=== PATIENT | female | born 1990 | race Caucasian/White ===

== ENCOUNTER 2017-07-23 19:23 | Emergency (ER) | payer OTHER, SELFPAY ==
[2017-07-23 19:25] VITALS: BP 149/99; PULSE 106; RESP 18; TEMP 37; O2SAT 100; BMI 41.5
[2017-07-23 21:38] VITALS: BP 160/100; PULSE 90; RESP 18; O2SAT 100
--- NOTE | 2017-07-23 21:42 | CT_ITS ---
STUDY: CT BRAIN WITHOUT CONTRAST REASON FOR EXAM: Female, 26 years old. Weakness dizziness and facial numbness RADIATION DOSAGE (If Supplied By Facility): CTDIvol = ( 44.99 ) mGy, DLP = ( 762.36 ) mGycm TECHNIQUE: Transaxial CT imaging of the brain was performed without administration of intravenous contrast material. Individualized dose optimization techniques were used for this CT. COMPARISON: September 30, 2014 FINDINGS: Normal soft tissue structures. Normal calvarium. Mild ventricular asymmetry likely normal developmental variant.. Normal white matter tracts of the cerebral hemispheres. Normal basal ganglia and thalami. Normal brainstem. Normal cerebellum. There is no intracranial hemorrhage. There are no findings of an acute ischemic infarction. Normal visualized paranasal sinuses. No significant change since prior study CT/Brain/Head without Contrast IMPRESSION: Normal unenhanced CT scan of the brain. However, if concern for acute infarct MRI recommended. Electronically Signed: Uri Randhawa MD at 22:41 EST , Service support ,
--- NOTE | 2017-07-23 22:44 | ED.DCSUM_ITS ---
- ER Visit Summary Date of Service: 07/23/17 Chief Complaint: Facial numbness History of Present Illness: The patient is a 26 F presenting for evaluation secondary to facial numbness. 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 She denies any weakness visual changes or any numbness or weakness in her arms or legs. She denies any speech difficulty. She has never had any prior similar symptoms in the past. Patient states that she has a history of a low blood pressure that she does not take medications for, she is a non-smoker, but she does have history of chronic headaches they got worked up about 5 years ago with imaging but nothing recently. She denies any recent head injuries. She denies any recent infections fever cough nausea vomiting neck stiffness or skin rashes. Review of systems otherwise negative. Physical Examination: Vital signs are within normal limits, patient is afebrile. General: Patient is well-nourished well-developed and in no acute distress. Head: Normocephalic, atraumatic Eyes: Pupils equal round and reactive bilaterally, extra occular motion intact bialterally ENT: Moist mucous membranes no evidence of vesicular rash on face Neck: Supple, no lymphadenopathy, no JVD, no meningismus CVS: Heart regular rate and rhythm, no murmurs, rubs or gallops, radial pulses 2 + bilaterally Resp: Respirations nondistressed, lung sounds clear bilaterally Abdomen: Soft, nontender, nondistended, no palpable masses, normal bowel sounds Back: Nontender Extremities: Nontender, atraumatic, active full range of motion, no peripheral edema Skin: warm, no rashes, no petechia Neuro: Alert and oriented x 4, CN 2-12 intact, no lateralizing neurological defecits, patient complains of bilateral facial numbness without any evidence of weakness of the facial muscles. Psyc: Normal affect Test Results: CT brain found to be negative. Emergency Department Course and Treatment: Patient presented for evaluation secondary to facial tingling of 2 hours duration. Physical exam was benign except for the patient's subjective feeling of tingling of her face, there is no evidence of vesicular rash on the face, Saravia's palsy, or any other neurologic deficit. CT brain was found to be negative. Patient is 26 years old does not smoke has no risk factors for cerebrovascular disease at this point. I do not believe that she requires admission given her otherwise normal appearance and normal workup. Patient will be given referral to neurology. All questions answered patient was discharged. Disposition: Discharge Impression: 1. Facial paresthesia This note was generated with [employer] dictation software. It may contain incorrect words, spelling, and punctuation that were not noted in review of the chart prior to signing ED Disposition - Plan for ED Patient: Chief Complaint: Numb/Ting Instructions: ED Paraesthesias Referrals: May Alicia DO [Primary Care Provider] - Neto Barth MD [STAFF PHYSICIAN] - 1 Week
[2017-07-23 23:00] VITALS: BP 129/81; PULSE 91; RESP 16; O2SAT 98
[2017-07-23 23:26] VITALS: BP 137/84; PULSE 96; RESP 18; O2SAT 97
== END 2017-07-23 23:28 | disposition home or self-care (01) ==
LOC: ED 21:46
PROVIDERS: Emergency Provider Emergency Medicine; Family Provider Internal Medicine; PCP Internal Medicine
DX: R20.2 Paresthesia of skin (principal); R51 Headache; E66.9 Obesity, unspecified
CPT/HCPCS: 70450; 99282

== ENCOUNTER → 2017-08-01 08:47 | Outpatient (CLI) | payer OTHER, SELFPAY ==
--- NOTE | 2017-08-01 08:51 | RAD_ITS ---
STUDY: X-RAY - CERVICAL SPINE REASON FOR EXAM: Female, 26 years old. Bilateral arm tingling and numbness TECHNIQUE: 3 view(s) of the cervical spine were obtained. COMPARISON: None FINDINGS: Normal anterior atlantoaxial articulation. Normal odontoid process. There is straightening of the normal cervical lordosis. Normal vertebral bodies and endplates. Normal disc space heights. The soft tissue structures are unremarkable. There is no demonstrated fracture of the cervical spine. RAD/Cerv Spine 2 or 3 Views IMPRESSION: Normal x-ray examination of the visualized cervical spine. Electronically Signed: Dre Humphries MD at 17:19 EST , Service support ,
== END ==
PROVIDERS: Family Provider Internal Medicine; PCP Internal Medicine; Visit Provider Internal Medicine
DX: M54.12 Radiculopathy, cervical region (principal)
CPT/HCPCS: 72040

== ENCOUNTER → 2017-08-10 07:17 | Outpatient (CLI) | payer OTHER, SELFPAY ==
--- NOTE | 2017-08-10 07:31 | MRI_ITS ---
STUDY: MRI CERVICAL SPINE WITHOUT CONTRAST REASON FOR EXAM: Female, 26 years old. Chronic daily headaches radiating to the neck and numbness and tingling in both extremities for 6 years TECHNIQUE: Standardized fat and water weighted pulse sequences were obtained in the sagittal and axial planes. COMPARISON: None FINDINGS: Straightening of normal cervical lordosis. Craniocervical junction appears unremarkable. No definite evidence for cord edema or myelomalacia seen. Minimal anterior wedging of the C3 and C4 and small C5 vertebral bodies which appear chronic. C6 vertebral body hemangioma. Disc desiccation at C2-C3, C3-C4, C4-C5 and C5-C6 levels. Minimal anterior osteophytic spurring. Level by level analysis: C2-C3 level: Facet hypertrophy without significant central canal stenosis or neural foraminal narrowing. C3-C4 level: Mild facet hypertrophy with broad-based disc bulge without significant central canal stenosis or neural foraminal narrowing. Mild effacement of ventral thecal sac. C4-C5 level: Bilateral facet hypertrophy with broad-based disc bulge resulting in mild effacement of ventral thecal sac without significant central canal stenosis or neural foraminal narrowing. C5-C6 level: Bilateral facet hypertrophy and broad-based disc bulge with mild effacement of ventral thecal sac without significant central canal stenosis or neural foraminal narrowing C6-C7 level: Broad-based disc bulge with a superimposed left paracentral small disc protrusion resulting in mild deformity of the left ventrolateral surface of the spinal cord without significant central canal stenosis or neural frontal narrowing C7-T1 level: Neural foramina and central canal are essentially patent No paraspinal soft tissue mass. Vertebral artery flow voids are grossly patent although there is tortuosity which limits assessment. Mucosal thickening of the paranasal sinuses. IMPRESSION: Mild cervical spondylotic changes predominating at C5-C6 and C6-C7 levels. No evidence for acute cervical spine fractures. No significant central canal stenosis. Please see above level by level complete analysis and details. No definite evidence for white matter lesions involving the cervical cord noted Electronically Signed: Blaine Ross, at 10:29 EST Tel , Service support , MRI/Spine Cervical (Routine)
--- NOTE | 2017-08-10 07:32 | MRI_ITS ---
STUDY: MRI BRAIN WITHOUT CONTRAST REASON FOR EXAM: Female, 26 years old. Chronic daily headaches radiating to the neck with numbness and tingling in the upper extremities TECHNIQUE: Standardized multiplanar fat and water weighted pulse sequences were obtained. COMPARISON: July 23, 2017 CT examination of the head FINDINGS: Normal size of the ventricles and extra-axial spaces for the patient's age. A few scattered foci of T2/FLAIR hyperintensity in the periventricular white matter noted which are nonspecific in imaging appearance however differential considerations include migraine-related changes. Normal bilateral basal ganglia. Normal thalami. There is no extra-axial fluid accumulation. Normal flow voids within the major intracranial circulation suggesting patency by spin echo criteria. Normal sella turcica, pituitary gland, infundibular stalk, optic chiasm and hypothalamus. Normal tectal plate and pineal gland. Normal midbrain, brittany and medulla. Normal cerebellum. Normal basal cisterns. Normal bilateral temporal bones. Normal bilateral internal auditory canals. No demonstrated orbital abnormality, within the constraints of a routine brain study. Mucous retention cysts in the maxillary sinuses. Normal calvarium and skull base. Normal visualized soft tissue structures. Normal visualized upper cervical spine. MRI/Brain without Contrast IMPRESSION: No evidence for acute or subacute ischemic insult. No evidence for intracranial mass or acute hemorrhage. A few scattered foci of T2/FLAIR hyperintensity in the periventricular white matter noted which are nonspecific in imaging appearance however differential considerations include migraine-related changes. Electronically Signed: Blaine Ross, at 9:46 EST Tel , Service support ,
== END ==
PROVIDERS: Family Provider Internal Medicine; PCP Internal Medicine; Visit Provider Internal Medicine
DX: R51 Headache (principal); M54.12 Radiculopathy, cervical region
CPT/HCPCS: 70551; 72141

== ENCOUNTER 2017-09-30 09:00 | Outpatient (RCR) | payer OTHER, SELFPAY ==
--- NOTE | 2017-08-23 12:50 | HP.PTEVAL_ITS ---
Patient's Visit Information WADE ESPARZA is a 26 year old F referred to Physical Therapy by May SERNA with a diagnosis of cervical radiculopathy. Date of Evaluation: 08/23/17 Physical Therapist: Jameel Dawson DPT, OC - Visit Plan Frequency: 2x /Week Duration: 4-6 Weeks Plan: 2x/week for 4-6 for c/s ret adn ext ROM(monitor L rot and ext ROM adn pain ) and progression of forces, mobs as needed. Postural and cervical strength. May use ES and MH adn ST<M as needed for acute pain. - Subjective Subjective: Severe neck pain. Not sure why. has NAVA for 6 years. Neck pain long time also and worsening. Neck hurts in back both sides and down between shoulder blades. Sometimes down into B UE. Also gets some numbness and tingling all the way down but this intermittent. I don't know why I am jsut sitting here. Sleep is interrupted due to pain waking up. 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 Pain is no different after work. Days off are no better. Hobbies include hanging out with family driving in car. Basic ADLs are OK, pain sometimes worsens. L rotation especially. - Pain Neck pain Pain Intensity (Out of 10): 7 Pain Intensity Range: 2, 9 Comment: working. - Objective At rest: L neck 9/10, 7 in UE to wrist. c/s AROM 40 ext , 50 R rotation both with pain, 80 L rotation. reflexes 2/3 bi and tri. Full UE AROM but pain end range L elevation. Sensation is WNL to gross light touch but feels numb left arm. Strength is 4-/5 through UE with out myotomal problems. repeated protrusion: NE, NE to movement.. repeated retraction: B. retraction ext...Better motion 80 ext adn 80 L rotation. - Goals Goal 1:: Full aROM c/s rotation and extension without pain Goal Time Frame: 4-6 Weeks Goal 2:: Pain and NAVA 75% improved and 2/10 at worst/ no UE symptoms. Goal Time Frame: 4-6 Weeks Goal 3:: I approp HEP to limit future problems Goal Time Frame: 4-6 Weeks Goal 4:: Sleep without waking due to pain. Goal Time Frame: 4-6 Weeks - Rehabilitation Potential Physical Therapy Diagnosis: cervical disc derangement. Rehabilitation Potential: Fair - Anticipated Interventions Patient/Client Instruction: Educate patient on: Condition, Plan of Care For the Purpose of:: To decrease pain, To increase ROM Therapeutic Exercise to Include: Strength training, Postural training, Flexibilty training, Passive ROM, Active ROM, Jus Exercises For the Purpose of:: To decrease pain, To increase ROM, To increase tolerance to activity/condition/position, To improve ability of physical actions for home/ community/work/leisure Manual Therapy Techniques to Include: Mobilization, Soft tissue mobilization For the Purpose of:: To increase ROM TENS: Yes Thermo therapy (hot pack): Yes For the Purpose of:: To decrease pain Thank you for the opportunity to evaluate your patient. For Medicare and Medicare HMO plans, please review the plan of care and approve it. It will need to be FAXED BACK to us at [phone] for Medicare purposes. Please let me know if there are questions or concerns regarding this plan of care. Physician Signature: Date:
--- NOTE | 2017-09-30 09:25 | HP.PTDCSUM_ITS ---
HP - PT D/C Summary It has been my pleasure to treat WADE ESPARZA under orders from May Alicia, for the diagnosis of cervical radiculopathy for a total of 8 visit(s). Discharge Date: 09/30/17 Please see the following information for a summary of their discharge status. - Subjective Subjective: Could nt take topamax as her blood pressure. Given imitec but only taken once last and it knocked NAVA out for a little while but it came back worse. Was 6/10 or higher most of weekend. Neck pain is allright. Motion feels worse. Not doing ex as much as should be. 90% better neck and arm , 50% overall as NAVA continues. Not sure when f/u is with neuro, awaiting to see imitek. - Pain Neck pain Pain Intensity (Out of 10): 0 L UE Pain Intensity (Out of 10): 0 NAVA Pain Intensity (Out of 10): 6 - Objective Objective/Function: Motion is full and painfree in neck. Strength in UE 4/5 without pain. Pt has no problems with neck pain but NAVA are a constant problem. I have asked her to contact docs office regarding her confusionh with meds. She says that botox may be an option and I have encourage her to seek the next options as therapy is nto helping the NAVA. Dry needling could be an option if other interventions fail and should be considered. - Goals Goal 1:: Full aROM c/s rotation and extension without pain Goal Progress: Goal Met Goal 2:: Pain and NAVA 75% improved and 2/10 at worst/ no UE symptoms. Goal Progress: neck, not NAVA. Goal 3:: I approp HEP to limit future problems Goal Progress: Goal Met Goal 4:: Sleep without waking due to pain. Goal Progress: Progressing - Plan Plan: D/C - D/C Information Discharge Comments: Pt doing well with necka dn arm pain and neck ROM. NAVA persists and is working with neurologist. If there are questions or concerns regarding this patient's physical therapy, please feel free to call me at [phone]. Thank you for the referral of this patient. Sincerely, Jameel Dawson, DPT, OC
== END 2017-09-30 19:00 | disposition home or self-care (01) ==
LOC: PT 09:00
PROVIDERS: Family Provider Internal Medicine; PCP Internal Medicine; Visit Provider Internal Medicine
DX: M54.12 Radiculopathy, cervical region (principal); M50.20 Other cervical disc displacement, unspecified cervical region
CPT/HCPCS: 97110; 97140; 97162; 97530

== ENCOUNTER → 2018-03-24 09:38 | Outpatient (CLI) | payer OTHER, SELFPAY ==
[2018-03-24 11:17] LABS: Hemoglobin A1c 4.9 % (4.2-6.3)
[2018-03-24 11:18] LABS: Progesterone Level 0.78 ng/mL (See Comment)
[2018-03-24 11:22] LABS: hCG Titer Quant., Serum < 1 mIU/mL (<9 non-preg)
[2018-03-24 11:28] LABS: Estradiol 47.2 pg/mL; Free T3 3.1 pg/mL (2.18-3.98); Thyroid Stim Hormone (TSH) 2.05 uIU/mL (0.358-3.74)
[2018-03-29 13:19] LABS: HPV HC, High Risk Negative (Negative); HPV Reflexed? YES, CHARGE PATIENT
== END ==
PROVIDERS: Visit Provider Obstetrics & Gynecology
DX: Z12.4 Encounter for screening for malignant neoplasm of cervix (principal); N92.6 Irregular menstruation, unspecified
CPT/HCPCS: 36415; 82670; 83036; 84144; 84403; 84439; 84443; 84481; 84702; 87624; 88175; G0145

== ENCOUNTER → 2018-04-03 13:09 | Outpatient (CLI) | payer OTHER, SELFPAY ==
[2018-04-03 16:06] LABS: hCG Titer Quant., Serum < 1 mIU/mL (<9 non-preg)
== END ==
PROVIDERS: Visit Provider Obstetrics & Gynecology
DX: N91.2 Amenorrhea, unspecified (principal)
CPT/HCPCS: 36415; 84702

== ENCOUNTER → 2018-04-23 12:20 | Outpatient (CLI) | payer OTHER, SELFPAY ==
--- NOTE | 2018-04-23 12:40 | US_ITS ---
STUDY: ULTRASOUND OF THE FEMALE PELVIS - COMPLETE REASON FOR EXAM: Female, 27 years old. Irregular menses. LMP: April 18, 2018. TECHNIQUE: Transvaginal TECHNICAL QUALITY: Adequate. COMPARISON: Comparison is made with prior examination dated July 08, 2014. FINDINGS: The uterus is anteverted and is in a midline position. The uterus measures 7.8 cm x 4.6 cm x 3.5 cm. Normal uterine cervix. The endometrium measures 3.2 mm in thickness, and is hyperechoic. There is no demonstrated endometrial mass. There is a 1.2 cm x 1 cm x 0.9 cm fibroid in the anterior aspect of the fundal portion of the uterus. I.U.D. - The patient does not have an I.U.D. The right ovary is visualized. The right ovary measures 2.4 cm x 2.2 cm x 2.6 cm. There is no right ovarian cyst or ovarian mass. There is no visualized right adnexal mass or complex lesion. There is normal arterial and normal venous vascularity. The left ovary is visualized. The left ovary measures 2.9 cm x 3.0 cm x 1.9 cm. There is no left ovarian cyst or ovarian mass. There is no visualized left adnexal mass or complex lesion. There is normal arterial and normal venous vascularity. There is no fluid in the cul-de-sac. The pre void volume of the bladder was 991 ml. Polycystic ovary disease: No. US/Pelvic (Non ) IMPRESSION: Small fundal fibroid. Electronically Signed: Niraj Liriano MD at 14:04 EST Tel [phone], Service support ,
--- NOTE | 2018-04-23 12:40 | US_ITS ---
STUDY: ULTRASOUND OF THE FEMALE PELVIS - COMPLETE REASON FOR EXAM: Female, 27 years old. Irregular menses. LMP: April 18, 2018. TECHNIQUE: Transvaginal TECHNICAL QUALITY: Adequate. COMPARISON: Comparison is made with prior examination dated July 08, 2014. FINDINGS: The uterus is anteverted and is in a midline position. The uterus measures 7.8 cm x 4.6 cm x 3.5 cm. Normal uterine cervix. The endometrium measures 3.2 mm in thickness, and is hyperechoic. There is no demonstrated endometrial mass. There is a 1.2 cm x 1 cm x 0.9 cm fibroid in the anterior aspect of the fundal portion of the uterus. I.U.D. - The patient does not have an I.U.D. The right ovary is visualized. The right ovary measures 2.4 cm x 2.2 cm x 2.6 cm. There is no right ovarian cyst or ovarian mass. There is no visualized right adnexal mass or complex lesion. There is normal arterial and normal venous vascularity. The left ovary is visualized. The left ovary measures 2.9 cm x 3.0 cm x 1.9 cm. There is no left ovarian cyst or ovarian mass. There is no visualized left adnexal mass or complex lesion. There is normal arterial and normal venous vascularity. There is no fluid in the cul-de-sac. The pre void volume of the bladder was 991 ml. Polycystic ovary disease: No. US/Transvaginal Non- IMPRESSION: Small fundal fibroid. Electronically Signed: Niraj Liriano MD at 14:04 EST Tel [phone], Service support ,
== END ==
PROVIDERS: Family Provider Internal Medicine; PCP Internal Medicine; Referring Provider Obstetrics & Gynecology; Visit Provider Obstetrics & Gynecology
DX: N92.6 Irregular menstruation, unspecified (principal); R51 Headache
CPT/HCPCS: 36415; 76830; 76856; 84146; 93976

== ENCOUNTER 2018-04-30 22:45 | Emergency (ER) | payer OTHER, SELFPAY ==
[2018-04-30 22:47] VITALS: BP 164/98; PULSE 99; RESP 16; TEMP 37.1; O2SAT 96; BMI 43.0
--- NOTE | 2018-04-30 22:57 | ED.VISSUMM ---
- ER Visit Summary Date of Service: 04/30/18 Chief Complaint: [] Fingertip shock History of Present Illness: The patient is a 27 F patient was plugging in an iPod and received a shock from electrical outlet here at [facility]. She works here felt a shock on her fingertip. She stated it ran up her arm across her chest and felt a zinger her opposite arm as well. It lasted just for a second. Eyes any symptoms. Physical Examination: [] Vital signs reviewed General: Well-nourished well-developed Head: Normocephalic atraumatic Eyes: Pupils equal round and reactive to light extraocular movements intact ENT: TMs clear no hemotympanum no trauma Neck: Nontender full range of motion Cardiovascular: Regular rate rhythm no murmurs normal S1-S2 Respiratory: No distress clear to auscultation bilaterally chest nontender Abdomen: Soft nontender nondistended normal bowel sounds no masses Back: Nontender no CVA tenderness Extremities: Nontender active range of motion ?4 extremities no trauma. Fingertip exam normal Skin: Normal color no trauma Neuro alert oriented cranial nerves II through XII intact normal strength sensation reflexes Test Results: [] Emergency Department Course and Treatment: [] Patient placed on the monitor. She is in normal sinus rhythm at a rate of 90s. At this time she can be discharged. This is a very low voltage shock which should not cause any problems. I do not feel she needs lab work imaging or has any heart problems from it. Treatment Plan: [] Disposition: [] Impression: [] Outlet shock to finger This note was generated with [employer] dictation software. It may contain incorrect words, spelling, and punctuation that were not noted in review of the chart prior to signing ED Disposition - Plan for ED Patient: Chief Complaint: Other, Pain/Inj Referrals: May Alicia DO [Primary Care Provider] -
--- NOTE | 2018-04-30 22:59 | ED.DEP ---
ED Disposition - Plan for ED Patient: Disposition: Home or Assisted Living Chief Complaint: Other, Pain/Inj Instructions: First Aid: Electrical Shocks Referrals: Corporate,[facility] [GROUP OF PHYSICIANS] -
--- NOTE | 2018-04-30 23:00 | DCINST.ED_ITS ---
ED Disposition - Plan for ED Patient: Disposition: Home or Assisted Living Chief Complaint: Other, Pain/Inj Instructions: First Aid: Electrical Shocks Referrals: Corporate,[facility] [GROUP OF PHYSICIANS] -
--- OUTSIDE RECORDS SUMMARY | 2018-06-26 05:22 | XMS RPT_ITS ---
:1990 Author Organization OHIP Support Name Relationship Address Phone VILMA, MICHELLE/CHAVA Unavailable [address] [place] [address] + [place] [address] AL, LONI Unavailable [address] + [address] [place] [address] [facility] Unavailable [address] + [place] [address] VILMA, MICHELLE/CHAVA Unavailable [address] [place] [address] + [place] [address] AL, LONI Unavailable [address] + [address] [place] [address] [facility] Unavailable [address] + [place] [address] VILMA, MICHELLE/CHAVA Unavailable [address] [place] [address] + [place] [address] AL, LONI Unavailable [address] + [address] [place] [address] [facility] Unavailable [address] + [place] [address] VILMA, MICHELLE/CHAVA Unavailable [address] + [place] [address] AL, LONI Unavailable [address] + [address] [place] [address] [facility] Unavailable [address] + [place] [address] VILMA, MICHELLE/CHAVA Unavailable [address] [place] [address] + [place] [address] AL, LONI Unavailable [address] + [address] [place] [address] [facility] Unavailable [address] + [place] [address] VILMA, MICHELLE/CHAVA Unavailable [address] [place] [address] + [place] [address] AL, LONI Unavailable [address] + [address] [place] [address] [facility] Unavailable [address] + [place] [address] VILMA, MICHELLE/CHAVA Unavailable [address] [place] [address] + [place] [address] AL, LONI Unavailable [address] + [address] [place] [address] [facility] Unavailable [address] + [place] [address] VILMA, MICHELLE/CHAVA Unavailable [address] [place] [address] + [place] [address] AL, LONI Unavailable [address] + [address] [place] [address] [facility] Unavailable [address] + [place] [address] VILMA, MICHELLE/CHAVA Unavailable [address] [place] [address] [phone] [place] [address] AL, LONI Unavailable [address] + [address] [place] [address] [facility] Unavailable [address] + [place] [address] VILMA, MICHELLE/CHAVA Unavailable [address] [place] [address] [phone] [place] [address] AL, LONI Unavailable [address] + [address] [place] [address] [facility] Unavailable [address] + [place] [address] VILMA, MICHELLE/CHAVA Unavailable [address] [place] [address] [phone] [place] [address] AL, LONI Unavailable [address] + [address] [place] [address] [facility] Unavailable [address] + [place] [address] MICHELLE ESPARZA/CHAVA Unavailable [address] [phone] [place] [address] LONI MELENDEZ Unavailable [address] + [address] [place] [address] [facility] Unavailable [address] + [place] [address] Care Team Providers Name Role Phone Sukhwinder Singh Attending Unavailable Ravin, May Referring Unavailable Sukhwinder Singh Attending Unavailable Ravin, May Referring Unavailable Ravin, May Primary Care Unavailable Azeem Guillen Attending Unavailable Ravin, May Attending Unavailable Ravin, May Primary Care Unavailable Ravin, May Attending Unavailable Ravin, May Referring Unavailable Ravin, May Primary Care Unavailable Ravin, May Attending Unavailable Ravin, May Referring Unavailable Ravin, May Primary Care Unavailable ASSESSMENT, HEALTH RISK Attending Unavailable ASSESSMENT, HEALTH RISK Referring Unavailable Ravin, May Primary Care Unavailable Natalie Bacon Attending Unavailable Shriner, Natalie Attending Unavailable Shriner, Natalie Attending Unavailable Shriner, Natalie Referring Unavailable Ravin, May Primary Care Unavailable Ravin, May Primary Care Unavailable Elton Donaldson Attending Unavailable Jaimie Vela Attending Unavailable Ravin, May Referring Unavailable PROBLEMS PROBLEMS DATE TYPE CONDITION / CODE ATTENDING STATUS SOURCE 05/20/2018 Unknown T75.4XXA - Sukhwinder Singh Active [place] Electrocution, Community initial encounter Hospital / Repository T75.4XXA(ICD-10) 03/24/2018 Unknown Z12.4 - Encounter Natalie Bacon Active [place] for screening for Community malignant Hospital neoplasm of Repository cervix / Z12.4(ICD-10) 03/24/2018 Unknown N92.6 - Irregular Natalie Bacon Active [place] menstruation, Community unspecified / Hospital N92.6(ICD-10) Repository 08/10/2017 Unknown R51 - Headache / [place], Active [place] R51(ICD-10) [facility] Repository 08/10/2017 Unknown M54.12 - Ravin, Active [place] Radiculopathy, May [facility] region / Hospital M54.12(ICD-10) Repository PROCEDURES PROCEDURES No Procedure Records FoundRESULTS RESULTS URGENT CARE VISIT Observed: 05/16/2018 Status: F Source: [place] REPORT 1:37 PM [facility] REPOSITORY [facility] [address] [place] [address] OFFICE VISIT Date of Service: 05/16/18 MR#: [id number] Acct: [id number] Name: WADE ESPARZA Rep #: [id number] : 1990 Provider: Sukhwinder WOODSON Age/Sex: 27/F Location: [facility] Status: Signed Intake Vital Signs05/16/18 Body Mass Index (BMI) 43.0 05/16/18 Height 5 ft 7 in Intake Visit Reasons: ELECTRICUTION/[facility] Chief Complaint: [facility], ER F/U Allergies No Known Allergies Allergy (Verified 05/16/18 11:50) Medications folic acid 0.8 mg capsule 0.8 mg PO DAILY 05/02/18 [History Confirmed 05/16/18] selenium 200 mcg capsule 200 mcg PO DAILY 05/02/18 [History Confirmed 05/16/18] PFSH Medical History Crohn disease (Acute) Severe headache (Acute) Surgical History History of cholecystectomy (Acute) History of tonsillectomy (Acute) Family History Other Diabetes Hypertension Thyroid disorder Social History Smoking Status: Never smoker alcohol intake: never HPI HPI Chief Complaint: [facility], ER F/U Details: WADE ESPARZA, is a 27 F who presents to the office today for follow-up of a work-related injury which occurred on 05/02/2018. Patient had multiple shock to the left hand on that date and at the last visit still continued to have some tingling to the left middle fingertip. Today she states that all symptoms have completely resolved and she has no other concerns at this time. She denies any numbness or tingling or loss of range of motion to the left hand. ROS Const Constitutional: No chills, fever(s), fatigue or abnormal sleep pattern Resp Respiratory: No shortness of breath or chest congestion Cardio Cardiology: No chest pain at rest, chest pain with exertion or shortness of breath Musc Musculoskeletal: No joint pain, tingling or numbness Skin Skin: No wounds or lesions Neuro Neurology: No behavioral changes, confusion, tingling or numbness Psych Psychiatric: No behavioral changes, No confusion, No abnormal sleep pattern Endo Endocrine: No fatigue Exam Const General: cooperative, healthy appearing Resp Effort AND Inspection: normal respiratory effort Auscultation: Bilateral: Clear to Auscultation Cardio Palpation: normal PMI Rate: regular rate Rhythm: regular rhythm Skin General: no rashes or lesions noted Neuro General: alert, CN's II-XI intact bilaterally Extrem General: normal to inspection, full ROM, normal capillary refill Psych Appearance: grossly normal Mental Status: mental status grossly normal Assessment AND Plan Problems 1. Electrocution, initial encounter T75.4XXA Status Acute Plan [employer] 14 filled out releasing patient back to work today without restrictions. Patient advised she may follow-up in this office if she has any return of symptoms or new concerns. Patient advised of potential red flags and when appropriate to report to the ED. Patient verbalized understanding and agreement with all the above. Coding Level of Care Code Off vis,est,level 3 Diagnoses Electrocution, initial encounter T75.4XXA 05/16/18 1337 <Electronically signed by Sukhwinder WOODSON> Date Sukhwinder WOODSON Cosigner Signature: Date (if applicable) CC: URGENT CARE VISIT Observed: 05/02/2018 Status: F Source: [place] REPORT 1:[address] [address] OFFICE VISIT Date of Service: 05/02/18 MR#: [id number] Acct: [id number] Name: WADE ESPARZA Rep #: [id number] : 1990 Provider: CHINTAN Vela Age/Sex: 27/F Location: [facility] Status: Signed Intake Vital Signs05/02/18 Body Mass Index (BMI) 43.0 05/02/18 Height 5 ft 7.5 in Intake Visit Reasons: [facility], ER F/U Chief Complaint: WC, ER F/U Document Examiner Required: No Accompanied by: Self Is patient in pain?: No Allergies No Known Allergies Allergy (Verified 05/02/18 13:18) Medications folic acid 0.8 mg capsule 0.8 mg PO DAILY 05/02/18 [History Confirmed 05/02/18] selenium 200 mcg capsule 200 mcg PO DAILY 05/02/18 [History Confirmed 05/02/18] PFS Medical History Crohn disease (Acute) Severe headache (Acute) Surgical History History of cholecystectomy (Acute) History of tonsillectomy (Acute) Family History Other Diabetes Hypertension Thyroid disorder Social History Smoking Status: Never smoker alcohol intake: never HPI HPI Chief Complaint: WC, ER F/U Details: WADE ESPARZA, is a 27 F who presents to the office today for f/u of electrical injury sustained Saturday04/30/2019. She was seen in the ER a [facility] initially. The shock happened when she was plugging in a gold assayer with her left hand and experienced quite a shock through her left middle finger, up her left arm through her left shoulder, across chest and down her right arm. Those symptoms stayed constant x 24 hours. She states today she only has some tingling at the tip of her middle finger, and a little less tingling up her anterior left forearm to just below her elbow. She has no pain or weakness at all. 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 ROS Const Constitutional: No body ache, chills, fatigue, fever(s), night sweats, change in appetite, weakness, frequent falls, headache(s) or excessive sweating Eyes Eyes: No visual disturbances, light sensitivity, eye pain or change in vision ENT ENT: No ear pain, ear discharge, hearing loss, dizziness/vertigo, nasal discharge, difficulty swallowing, sore throat, neck pain or headache(s) Resp Respiratory: No cough, chest congestion, hemoptysis, shortness of breath or wheezing Cardio Cardiology: No shortness of breath, irregular heart rhythm, lightheadedness, chest pain at rest, chest pain with exertion, generalized swelling, orthopnea, palpitations or excessive sweating Gastro GI: No difficulty swallowing, abdominal pain, bloating, change in bowel habits, diarrhea, blood in stool, Black,tarry stools, nausea/dyspepsia or vomiting Genitourinary-Female: No burning urination, urinary frequency, urinary urgency, blood in urine or Vaginal Itching Musc Musculoskeletal: Positive for tingling (lft middle fingertip mainly); no joint pain, back pain, numbness or neck pain Skin Skin: No lesions, itching or rash Neuro Neurology: Positive for tingling (lft middle fingertip mainly); no visual disturbances, numbness, abnormal speech, confusion, unsteady gait/balance, dizziness, weakness, frequent falls, loss of vision, headache(s) or memory loss Psych Psychiatric: No change in appetite, No confusion, No memory loss, No anxiety, No depression Endo Endocrine: No fatigue, cold intolerance, excessive sweating, flushing, heat intolerance or increased thirst/drinking Aller/Imm Allergy/Immunologic: No wheezing, itchy eyes, food intolerance, seasonal allergy symptoms or hives Luis/Lymp Hematologic/Lymphatic: No easy bruising Exam Const General: cooperative, no acute distress Orientation: alert, oriented x3 [facility] Head: normal to inspection, normocephalic Ears: hearing grossly normal bilaterally, external ears normal Nose: nasal mucous membranes and turbinates normal, no nasal discharge Face and sinus: normal facial exam Mouth: oropharynx normal Throat: posterior oropharynx normal Eyes General: appearance normal, both eyes and all related structures Visual Quinteros: normal visual quinteros by confrontation Eyelids: eyelids normal Conjunctivae: conjunctivae normal Sclera: sclerae normal Pupils: PERRL, normal by confrontation, accommodation normal EOM: EOM intact bilaterally Direct ophthalmoscopy: normal light reflex, no papilledema, no photophobia, fundi normal bilaterally Neck Neck: normal visual inspection, full ROM, no meningeal signs, trachea midline, supple, no lymphadenopathy Lymphatic: no lymphadenopathy noted Chest Chest palpation AND inspection: normal inspection of the chest Resp Effort AND Inspection: normal respiratory effort, able to speak in complete sentences, symmetric chest movement, no audible wheezes, no cough, not labored, no respiratory distress Auscultation: Bilateral: Clear to Auscultation Cardio Rate: regular rate Rhythm: regular rhythm Heart Sounds: S1 normal, S2 normal Musc Musculoskeletal: No joint tenderness or joint redness Cervical Spine: cervical ROM normal Thoracic/Lumbar Spine: thoracic and lumbar spine normal to inspection, thoraco-lumbar ROM normal Skin General: no rashes or lesions noted Neuro General: alert, oriented x3, moves all extremities Cranial Nerves: CN's II-XI intact bilaterally Cognition: normal cognition Speech: speech normal Gait: normal gait Motor: muscle tone normal throughout, strength 5/5 throughout Sensory Exam: other (some decrease is light touch left middle fingertip, remaining exam WNL) Coordination: [id number] test normal Extrem General: normal to inspection, full ROM, no muscle atrophy Psych Appearance: grossly normal, well kempt Mental Status: mental status grossly normal Affect: normal affect Speech and Movement: speech and movement normal Attitude: cooperative Thought Process: normal Thought Content: normal Judgment: judgment good Assessment AND Plan Problems 1. Injury due to electrical exposure 2. Electrocution and nonfatal effects of electric current, initial encounter T75.4XXA Plan RTW today without limitations F/u 2 weeks for hopeful full release. Coding Level of Care Code Off vis,new,level 3 Diagnoses Injury due to electrical exposure Electrocution and nonfatal effects of electric current, initial encounter T75.4XXA Encounter type: initial encounter 05/02/18 1356 <Electronically signed by Jaimie WOODSON> Date Jaimie WOODSON Cosigner Signature: Date (if applicable) CC: EMERGENCY DEPARTMENT Observed: 04/30/2018 Status: F Source: [place] SUMMARY 11:02 PM [facility] REPOSITORY [facility] Medical Records Department [address] [place] [address] Emergency Department Summary 04/30/18 2257 MR#: [id number] Acct: [id number] Name: WADE ESPARZA Rep #: [id number] : 1990 27 From: Elton Donaldson MD PCP: May Alicia DO Status: PRE ER - ER Visit Summary Date of Service: 04/30/18 Chief Complaint: [] Fingertip shock History of Present Illness: The patient is a 27 F patient was plugging in an iPod and received a shock from electrical outlet here at [facility]. She works here felt a shock on her fingertip. She stated it ran up her arm across her chest and felt a zinger her opposite arm as well. It lasted just for a second. Eyes any symptoms. Physical Examination: [] Vital signs reviewed General: Well-nourished well-developed Head: Normocephalic atraumatic Eyes: Pupils equal round and reactive to light extraocular movements intact ENT: TMs clear no hemotympanum no trauma Neck: Nontender full range of motion Cardiovascular: Regular rate rhythm no murmurs normal S1-S2 Respiratory: No distress clear to auscultation bilaterally chest nontender Abdomen: Soft nontender nondistended normal bowel sounds no masses Back: Nontender no CVA tenderness Extremities: Nontender active range of motion 4 extremities no trauma. Fingertip exam normal Skin: Normal color no trauma Neuro alert oriented cranial nerves II through XII intact normal strength sensation reflexes Test Results: [] Emergency Department Course and Treatment: [] Patient placed on the monitor. She is in normal sinus rhythm at a rate of 90s. At this time she can be discharged. This is a very low voltage shock which should not cause any problems. I do not feel she needs lab work imaging or has any heart problems from it. Treatment Plan: [] Disposition: [] Impression: [] Outlet shock to finger This note was generated with [employer] dictation software. It may contain incorrect words, spelling, and punctuation that were not noted in review of the chart prior to signing ED Disposition - Plan for ED Patient: Chief Complaint: Other, Pain/Inj Referrals: May Alicia, [Primary Care Provider] - What to do if you have Problems For any increased pain, shortness of breath, bleeding, nausea or vomiting, chest pain, or any unexpected problems, contact your Primary Care Provider. Call [facility] ([phone]) or report to the closest Emergency Room. Call 911 if necessary. 04/30/182301 <Electronically signed by Elton Donaldson MD> Date Elton Donaldson MD Cosigner Signature (If Indicated): Date CC: May Alicia DO DISCHARGE INSTRUCTION Observed: 04/30/2018 Status: F Source: [place] 11:02 PM [facility] REPOSITORY [facility] Medical Records Department [address] [place] [address] Discharge Instruction 04/30/182258 MR#: [id number] Acct: [id number] Name: WADE ESPARZA Rep #: [id number] : 1990 27 From: Elton Donaldson MD PCP: May Alicia DO Status: PRE ER ED Disposition - Plan for ED Patient: Disposition: Home or Assisted Living Chief Complaint: Other, Pain/Inj Instructions: First Aid: Electrical Shocks Referrals: [facility] [GROUP OF PHYSICIANS] - What to do if you have Problems For any increased pain, shortness of breath, bleeding, nausea or vomiting, chest pain, or any unexpected problems, contact your Primary Care Provider. Call [facility] ([phone]) or report to the closest Emergency Room. Call 911 if necessary. 04/30/182301 <Electronically signed by Elton Donaldson MD> Date Elton Donaldson MD Cosigner Signature (If Indicated): Date CC: Mayamelie Alicia DO PROLACTIN Collected: 04/23/2018 Status: F Source: SANDY 3:57 PM [facility] REPOSITORY TYPE CODE TESTS RESULT OUT OF RANGE REFERENCE UNITS LAB L3100.5420 ng/mL Normal PROLACTIN 4.0 Result Comment: NORMAL REFERENCE RANGES FEMALE NON- 2.2 - 30.3 ng/mL 8.1 - 347.6 ng/mL POST-MENOPAUSAL 0.7 - 31.5 ng/mL MALE 2.5 - 17.4 ng/mL NEW TEST METHOD AND REFERENCE RANGES OCTOBER 22, 2011 Performed By: #### L3100.5420 #### [facility] [address] [place], [address] TRANSVAGINAL Observed: 04/23/2018 Status: F Source: [place] NON- 12:40 PM [facility] REPOSITORY [facility] Imaging Services [address] [place] [address] Transvaginal Non- MR#: [id number] Acct: [id number] Name: WADE ESPARZA Rep #: [id number] : 1990 F 27 From: Niraj Liriano MD PCP: May Alicia DO Status: REG CLI Study: Transvaginal Non- Date of Exam: 04/23/18 Exam# [id number] Ordering Dr: Natalie Bacon MD STUDY: ULTRASOUND OF THE FEMALE PELVIS - COMPLETE REASON FOR EXAM: Female, 27 years old. Irregular menses. LMP: April 18, 2018. TECHNIQUE: Transvaginal TECHNICAL QUALITY: Adequate. COMPARISON: Comparison is made with prior examination dated July 08, 2014. FINDINGS: The uterus is anteverted and is in a midline position. The uterus measures 7.8 cm x 4.6 cm x 3.5 cm. Normal uterine cervix. The endometrium measures 3.2 mm in thickness, and is hyperechoic. There is no demonstrated endometrial mass. There is a 1.2 cm x 1 cm x 0.9 cm fibroid in the anterior aspect of the fundal portion of the uterus. I.U.D. - The patient does not have an I.U.D. The right ovary is visualized. The right ovary measures 2.4 cm x 2.2 cm x 2.6 cm. There is no right ovarian cyst or ovarian mass. There is no visualized right adnexal mass or complex lesion. There is normal arterial and normal venous vascularity. The left ovary is visualized. The left ovary measures 2.9 cm x 3.0 cm x 1.9 cm. There is no left ovarian cyst or ovarian mass. There is no visualized left adnexal mass or complex lesion. There is normal arterial and normal venous vascularity. There is no fluid in the cul-de-sac. The pre void volume of the bladder was 991 ml. Polycystic ovary disease: No. US/Transvaginal Non- IMPRESSION: Small fundal fibroid. 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 Irregular menses. LMP: April 18, 2018. TECHNIQUE: Transvaginal TECHNICAL QUALITY: Adequate. COMPARISON: Comparison is made with prior examination dated July 08, 2014. FINDINGS: The uterus is anteverted and is in a midline position. The uterus measures 7.8 cm x 4.6 cm x 3.5 cm. Normal uterine cervix. The endometrium measures 3.2 mm in thickness, and is hyperechoic. There is no demonstrated endometrial mass. There is a 1.2 cm x 1 cm x 0.9 cm fibroid in the anterior aspect of the fundal portion of the uterus. I.U.D. - The patient does not have an I.U.D. The right ovary is visualized. The right ovary measures 2.4 cm x 2.2 cm x 2.6 cm. There is no right ovarian cyst or ovarian mass. There is no visualized right adnexal mass or complex lesion. There is normal arterial and normal venous vascularity. The left ovary is visualized. The left ovary measures 2.9 cm x 3.0 cm x 1.9 cm. There is no left ovarian cyst or ovarian mass. There is no visualized left adnexal mass or complex lesion. There is normal arterial and normal venous vascularity. There is no fluid in the cul-de-sac. The pre void volume of the bladder was 991 ml. Polycystic ovary disease: No. US/Pelvic (Non ) IMPRESSION: Small fundal fibroid. 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 Performed By: #### L700.8000 #### [facility] [address] [place], [address] HEMOGLOBIN A1C Collected: 03/24/2018 Status: F Source: SANDY 9:44 AM [facility] REPOSITORY TYPE CODE TESTS RESULT OUT OF RANGE REFERENCE UNITS LAB L501.9985 4.2-6.3 % Normal HGB A1C 4.9 Performed By: #### L501.9985 #### [facility] [address] [place], [address] TESTOSTERONE, SERUM TOTAL Collected: 03/24/2018 Status: F Source: SANDY 9:44 AM [facility] REPOSITORY TYPE CODE TESTS RESULT OUT OF REFERENCE UNITS RANGE LAB L509.3000 ng/dL Testosterone Normal 53.33 Result Comment: NORMAL REFERENCE RANGES MALE AGE <50 123.06 - 813.86 ng/dL MALE AGE >50 89.98 - 780.10 ng/dL FEMALE PREMENOPAUSE AGE 21 - 60 9.01 - 47.94 ng/dL FEMALE POSTMENOPAUSE AGE 45 - 89 <7.00 - 45.62 ng/dL REFERENCE RANGE AND METHODOLOGY CHANGED 05/22/2017 Performed By: #### L509.3000, L509.4001 #### [facility] [address] [place], [address] PROGESTERONE LEVEL Collected: 03/24/2018 Status: F Source: SANDY 9:44 AM [facility] REPOSITORY TYPE CODE TESTS RESULT OUT OF REFERENCE UNITS RANGE LAB L509.4001 See Comment ng/mL Progesterone Normal 0.78 Result Comment: Progesterone Reference Table: UNITS Female: Follicular 0.15 - 1.40 ng/mL Luteal 3.34 - 25.56 ng/mL Mid-luteal 4.44 - 28.03 ng/mL Postmenopausal 0.0 - 0.73 ng/mL : 1st Trimester 11.22 - 90.00 ng/mL 2nd Trimester 25.55 - 89.40 ng/mL 3rd Trimester 48.40 -422.50 ng/mL Performed By: #### L509.3000, L509.4001 #### [facility] [address] [place], [address] HCG TITER QUANT., Collected: 03/24/2018 Status: F Source: [place] SERUM 9:44 AM [facility] [facility] REPOSITORY TYPE CODE TESTS RESULT OUT OF RANGE REFERENCE UNITS LAB L700.8000 <9 non-preg mIU/mL Normal HCG < 1 QUANT. Performed By: #### L700.8000 #### [facility] [address] [place], [place], [id number] FREE T3 Collected: 03/24/2018 Status: F Source: RICK 9:44 AM [facility] REPOSITORY TYPE CODE TESTS RESULT OUT OF RANGE REFERENCE UNITS LAB L501.68127 2.18-3.98 pg/mL Normal FREE T3 3.1 Performed By: #### L501.59465, L501.9520, L506.0400, L3300.1750 #### [facility] [address] [place], [address] THYROID STIM HORMONE Collected: 03/24/2018 Status: F Source: RICK (TSH) 9:44 AM [facility] REPOSITORY TYPE CODE TESTS RESULT OUT OF RANGE REFERENCE UNITS LAB L501.9520 0.358-3.74 uIU/mL Normal TSH 2.05 Performed By: #### L501.13606, L501.9520, L506.0400, L3300.1750 #### [facility] [address] [place], [address] T4 FREE DIRECT Collected: 03/24/2018 Status: F Source: RICK 9:44 AM [facility] REPOSITORY TYPE CODE TESTS RESULT OUT OF RANGE REFERENCE UNITS LAB L506.0400 0.76-1.46 ng/dL Normal T4 FREE 0.80 DIRECT Performed By: #### L501.65676, L501.9520, L506.0400, L3300.1750 #### [facility] [address] [place], [address] ESTRADIOL Collected: 03/24/2018 Status: F Source: RICK 9:44 AM [facility] REPOSITORY TYPE CODE TESTS RESULT OUT OF RANGE REFERENCE UNITS LAB L3300.1750 pg/mL Normal ESTRADIOL 47.2 Result Comment: NORMAL REFERENCE RANGES FEMALE FOLLICULAR 21.4 - 164.8 pg/mL MID-CYCLE PEAK 49.9 - 367.2 pg/mL LUTEAL 40.2 - 259.0 pg/mL POST-MENOPAUSAL ON MHT <11.0 - 462.1 pg/mL NOT ON MHT <11.0 - 58.3 pg/mL MALE <11.0 - 52.5 pg/mL NOTE: [facility] HAS CONFIRMED THE DRUG FULVETRANT (FASLODEX) MAY CAUSE FALSELY ELEVATED ESTRADIOL RESULTS WHEN USING THIS TEST METHOD. IF PATIENT IS TAKING FULVESTRANT AN ALTERNATIVE METHOD SHOULD BE USED TO DETERMINE ESTRADIOL CONCENTRATION. Performed By: #### L501.07656, L501.9520, L506.0400, L3300.1750 #### [facility] [address] [place], [address] PAP I-G W/RFX HRHPV Collected: 03/24/2018 Status: F Source: SANDY 9:00 AM [facility] REPOSITORY Order Comment: CYTOLOGY INFORMATION: - CLINICAL INFORMATION: - DATE LMP/MENOPAUSE: 01/27/18 LMP - COLLECTION VIAL: Thin Prep Vial - RELIGIOUS STUDIES PROFESSOR SOURCE: CERVICAL/ENDOCERVICAL - COLLECTION TECHNIQUE: BRUSH/SPATULA Specimen Comment: [id number] Specimen Comment: Source.............Cervix Specimen Comment: LMP / Prev Treat...OPM=[id number] Specimen Comment: No. of containers..01 ThinPrep Vial TYPE CODE TESTS RESULT OUT OF REFERENCE UNITS RANGE LAB L7400.0800 . High DIAGN Comment Result Comment: EPITHELIAL CELL ABNORMALITY. ATYPICAL SQUAMOUS CELLS OF UNDETERMINED SIGNIFICANCE. LAB L7400.0900 . Normal ADEQ Comment Result Comment: Satisfactory for evaluation. Endocervical and/or squamous metaplastic cells (endocervical component) are present. LAB L7400.1400 . Normal PERFORM Comment Result Comment: Tato Prajapati, Copper Plater (ASCP) LAB L7400.1700 . Normal SIGN Comment Result Comment: Aleyda Pimentel MD, Pathologist LAB L7400.1720 . Normal Path prov. Comment ICD9 Result Comment: R87.610 LAB L7400.2575 . Normal TEST METHOD Comment Result Comment: This liquid based ThinPrep(R) pap test was screened with the use of an image guided system. LAB L7400.2600 . Normal . COMM LAB L7400.2700 . Normal PAPSMR Comment Result Comment: The Pap smear is a screening test designed to aid in the detection of premalignant and malignant conditions of the uterine cervix. It is not a diagnostic procedure and should not be used as the sole means of detecting cervical cancer. Both false-positive and false-negative reports do occur. LAB L7400.2800 . Normal HPV RFLX Comment Result Comment: See below for HPV testing results. LAB L7400.2900 Negative Normal HPV Negative HC,HGH RISK Result Comment: This high-risk HPV test detects thirteen high-risk types (16/18/31/33/35/39/45/51/52/56/58/59/68) without differentiation. Performed at: [address] [place] [id number] Retail Sales Representative: Aleyda Pimentel MD, Phone: [phone] Performed at: [address] [id number] Retail Sales Representative: Pat Gibson MD, Phone: [phone] Performed at: [address] [id number] Retail Sales Representative: Pat Gibson MD, Phone: [phone] Performed By: #### L7400.0350 #### [facility] (refer to report for specific site) refer to report for address and phone number URINALYSIS, EMPLOYEE Collected: 01/29/2018 Status: F Source: RICK 11:51 AM [facility] REPOSITORY TYPE CODE TESTS RESULT OUT OF RANGE REFERENCE UNITS LAB L400.3000 Yellow COLOR Normal Yellow LAB L400.3050 Clear Normal CLARITY Sl. Cloudy LAB L400.3200 Normal mg/dl Normal GLUCOSE, UR Normal LAB L400.3300 Negative mg/dL Normal BILIRUBIN URINE Negative LAB L400.3400 Negative mg/dl Normal KETONE UR Negative LAB L400.3465 1.002-1.030 Normal SP.GR. DIPSTX 1.010 LAB L400.3550 5.0 - 8.0 pH UR Normal 7.0 LAB L400.3600 Negative mg/dl PROT Normal DIPSTX Negative LAB L400.3700 Normal mg/dl Normal UROBILI Normal LAB L400.3750 Negative Normal NITRITE UR Negative LAB L400.3780 Negative /ul High OCCULT BLOOD-UR 250 LAB L400.3800 Negative /ul High LEUK 25 ESTERASE Performed By: #### L400.0100 #### [facility] [address] [place], [place], [address] CBC, EMPLOYEE Collected: 01/29/2018 Status: F Source: SANDY 11:51 AM [facility] REPOSITORY TYPE CODE TESTS RESULT OUT OF RANGE REFERENCE UNITS LAB L100.1000 4.4-11.0 K/mm3 Normal WBC 9.5 LAB L100.1200 4.2-5.4 M/mm3 Normal RBC 4.69 LAB L100.1300 12.0-15.0 g/dl Normal HGB 14.2 LAB L100.1400 37-47 % Normal HCT 43.2 LAB L100.1500 81-99 fL Normal MCV 92.1 LAB L100.1600 27.0-32.0 pg Normal MCH 30.3 LAB L100.1700 32-36 g/gl Normal MCHC 32.9 LAB L100.1810 11.6-14.6 % Normal RDW CV 12.1 LAB L100.1820 35.1-43.9 fl Normal RDW SD 40.5 LAB L100.1900 150-450 K/mm3 Normal PLT 300 LAB L100.2000 6.2-12.0 fl Normal MPV 10.8 LAB L100.2110 47-70 % Normal NEUT% 65.2 LAB L100.2210 19-41 % Normal LY% 25.9 LAB L100.2310 0-10 % Normal MONO% 7.1 LAB L100.2410 0-5 % Normal EO% 1.3 LAB L100.2510 0-1 % Normal BASO% 0.4 LAB L100.2620 2.0-7.7 X10 3/uL Normal Absolute Neut 6.2 LAB L100.2720 0.83-4.51 X10 3/ul Normal Absolute Lymph 2.45 Performed By: #### L100.0200 #### [facility] [address] [place], [place], [address] EMPLOYEE PROFILE Collected: 01/29/2018 Status: F Source: RICK 11:51 AM [facility] REPOSITORY TYPE CODE TESTS RESULT OUT OF RANGE REFERENCE UNITS LAB L501.0100 74-106 mg/dL Normal GLU 84 Result Comment: Please note revised GLUCOSE reference range effective 2017. LAB L501.1000 7-18 mg/dL Normal BUN 7 LAB L501.1100 0.55-1.02 mg/dL Normal CREAT,SERUM 0.60 Result Comment: The validity of the calculated GFR AND GFRAA in patients over 70 years has not been determined. Clinical correlation is essential. LAB L501.1110 >60 mL/min Normal EST GFR 127 Result Comment: Non- GFR Calc LAB L501.1115 >60 mL/min Normal EST GFR - AA 154 Result Comment: GFR Calc LAB L501.1300 10-20 RATIO Normal BUN/CRE 11.6 LAB L501.1400 2.6-6.0 mg/dL High URIC 6.5 Result Comment: The drugs N-Acetylcysteine and Metamizole may falsely depress this assay. LAB L501.1500 6.4-8.2 g/dL Normal T PROT 7.8 LAB L501.1800 3.2-5.0 g/dL Normal ALB 3.7 LAB L501.1950 2.2-4.2 g/dL Normal GLOB 4.1 LAB L501.2000 0.9-2.4 RATIO Normal A/G 0.9 LAB L501.2200 8.5-10.1 mg/dL Normal CA 9.0 LAB L501.2300 2.5-4.9 mg/dL Normal PHOS 3.2 LAB L501.4100 15-37 U/L Normal AST 19 LAB L501.4305 45-117 U/L Normal ALK P 99 LAB L501.4405 13-56 U/L Normal ALT 27 LAB L501.4600 0.20-1.00 mg/dL Normal T BILI 0.90 LAB L501.4700 0.00-0.30 mg/dL Normal D BILI 0.19 LAB L501.4900 200 mg/dL Normal CHOL 169 Result Comment: <200 mg/dL Desirable 200-240 mg/dL Borderline >240 mg/dL High Risk LAB L501.5000 mg/dL Normal TRIG 119 Result Comment: The drugs N-Acetylcysteine and Metamizole may falsely depress this assay. Serum Triglycerides Reference Interval Normal <150 mg/dL Borderline high 150 - 199 mg/dL High 200 - 499 mg/dL Very High > or = 500 mg/dL LAB L501.5300 136-145 mmol/L Normal NA 139 LAB L501.5600 3.5-5.1 mmol/L Normal K 4.3 LAB L501.5900 98-107 mmol/L Normal CL 104 LAB L501.6100 21.0-32.0 mmol/L Normal CO2 26.0 LAB L501.6200 5-15 Normal 9 GAP LAB L501.6400 mg/dL Low HDL 37 Result Comment: The drugs N-Acetylcysteine and Metamizole may falsely depress this assay. Reference Range HDL <40 mg/dL Low HDL Cholesterol HDL >or= 60 mg/dL High HDL Cholesterol LAB L501.6475 Normal CHOL:HDL 4.60 LAB L501.6500 0-130 mg/dL Normal LDL 108 LAB L501.6600 5-40 mg/dL Normal VLDL 24 LAB L504.2610 84-246 U/L Normal LDH 190 Performed By: #### L500.2900 #### [facility] [address] [place], [place], [id number] NICOTINE URINE DRUG Collected: 01/29/2018 Status: F Source: RICK SCREEN 11:51 AM [facility] REPOSITORY TYPE CODE TESTS RESULT OUT OF RANGE REFERENCE UNITS LAB L505.6250 TO BE Normal CONFIRMED Result Comment: CONFIRMATORY TESTING FOR ALL POSITIVE URINE DRUG SCREEN RESULTS WILL ONLY BE SENT OUT UPON PHYSICIAN ORDER. The results of Urine Drug Screen methods provide only preliminary analytical test results. A more specific alternate chemical method must be used in order to obtain a confirmed analytical result. Gas chromatography/mass spectrometery (GC/MS) is the preferred confirmatory method. Clinical consideration and professional judgement should be applied to any drug of abuse test result, particularly when preliminary positive results are used. LAB L505.6270 <200 ng/mL Normal COT DRG Negative SCREEN Result Comment: Cotinine is the first-stage metabolite of Nicotine. Performed By: #### L505.6240 #### [facility] [address] [facility] [place], [place], [address] PT D/C SUMMARY (1) Observed: 10/01/2017 Status: F Source: SANDY 9:45 AM [facility] REPOSITORY [facility] [address] [place] [address] Fax REHABILITATION SERVICES DISCHARGE SUMMARY MR#: [id number] Acct: [id number] Name: WADE ESPARZA Rep #: [id number] : 1990 26 From: Jameel Dawson DPT, OCS, CSCS Referring Dr.: May Alicia DO Status: REG RCR Insurance: [facility] [employer] [facility] SELF PAY INSURANCE HP - PT D/C Summary It has been my pleasure to treat WADE ESPARZA under orders from May Alicia, for the diagnosis of cervical radiculopathy for a total of 8 visit(s). Discharge Date: 09/30/17 Please see the following information for a summary of their discharge status. - Subjective Subjective: Could nt take topamax as her blood pressure. Given imitec but only taken once last and it knocked NAVA out for a little while but it came back worse. Was 6/10 or higher most of weekend. Neck pain is allright. Motion feels worse. Not doing ex as much as should be. 90% better neck and arm, 50% overall as NAVA continues. Not sure when f/u is with neuro, awaiting to see imitek. - Pain Neck pain Pain Intensity (Out of 10): 0 L UE Pain Intensity (Out of 10): 0 NAVA Pain Intensity (Out of 10): 6 - Objective Objective/Function: Motion is full and painfree in neck. Strength in UE 4/5 without pain. Pt has no problems with neck pain but NAVA are a constant problem. I have asked her to contact docs office regarding her confusionh with meds. She says that botox may be an option and I have encourage her to seek the next options as therapy is nto helping the NAVA. Dry needling could be an option if other interventions fail and should be considered. - Goals Goal 1:: Full aROM c/s rotation and extension without pain Goal Progress: Goal Met Goal 2:: Pain and NAVA 75% improved and 2/10 at worst/ no UE symptoms. Goal Progress: neck, not NAVA. Goal 3:: I approp HEP to limit future problems Goal Progress: Goal Met Goal 4:: Sleep without waking due to pain. Goal Progress: Progressing - Plan Plan: D/C - D/C Information Discharge Comments: Pt doing well with necka dn arm pain and neck ROM. NAVA persists and is working with neurologist. If there are questions or concerns regarding this patient's physical therapy, please feel free to call me at [phone]. Thank you for the referral of this patient. Sincerely, Jameel Dawson DPT, OC <Electronically signed by MANOJ Livingston DPT, CSCS> 10/01/17 0945 CC: aMy Alicia DO EBG Signed INITAL EVALUATION (1) Observed: 08/29/2017 Status: F Source: SANDY - PT 9:08 AM [facility] REPOSITORY [facility] [address] [place] [address]. [address] [place] [address] Fax REHABILITATION SERVICES INITIAL EVALUATION MR#: [id number] Acct: [id number] Name: WADE ESPARZA Rep #: [id number] : 1990 26 From: MANOJ Livingston DPT, CSCS Referring Dr.: May Alicia DO Status: REG RCR Insurance: [facility] [employer] [facility] SELF PAY INSURANCE Patient's Visit Information WADE ESPARZA is a 26 year old F referred to Physical Therapy by May SERNA with a diagnosis of cervical radiculopathy. Date of Evaluation: 08/23/17 Physical Therapist: Jameel Dawson DPT, OC - Visit Plan Frequency: 2x /Week Duration: 4-6 Weeks Plan: 2x/week for 4-6 for c/s ret adn ext ROM(monitor L rot and ext ROM adn pain) and progression of forces, mobs as needed. Postural and cervical strength. May use ES and MH adn ST<M as needed for acute pain. - Subjective Subjective: Severe neck pain. Not sure why. has NAVA for 6 years. Neck pain long time also and worsening. Neck hurts in back both sides and down between shoulder blades. Sometimes down into B UE. Also gets some numbness and tingling all the way down but this intermittent. I don't know why I am jsut sitting here. Sleep is interrupted due to pain waking up. 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 Pain is no different after work. Days off are no better. Hobbies include hanging out with family driving in car. Basic ADLs are OK, pain sometimes worsens. L rotation especially. - Pain Neck pain Pain Intensity (Out of 10): 7 Pain Intensity Range: 2, 9 Comment: working. - Objective At rest: L neck 9/10, 7 in UE to wrist. c/s AROM 40 ext , 50 R rotation both with pain, 80 L rotation. reflexes 2/3 bi and tri. Full UE AROM but pain end range L elevation. Sensation is WNL to gross light touch but feels numb left arm. Strength is 4-/5 through UE with out myotomal problems. repeated protrusion: NE, NE to movement.. repeated retraction: B. retraction ext...Better motion 80 ext adn 80 L rotation. - Goals Goal 1:: Full aROM c/s rotation and extension without pain Goal Time Frame: 4-6 Weeks Goal 2:: Pain and NAVA 75% improved and 2/10 at worst/ no UE symptoms. Goal Time Frame: 4-6 Weeks Goal 3:: I approp HEP to limit future problems Goal Time Frame: 4-6 Weeks Goal 4:: Sleep without waking due to pain. Goal Time Frame: 4-6 Weeks - Rehabilitation Potential Physical Therapy Diagnosis: cervical disc derangement. Rehabilitation Potential: Fair - Anticipated Interventions Patient/Client Instruction: Educate patient on: Condition, Plan of Care For the Purpose of:: To decrease pain, To increase ROM Therapeutic Exercise to Include: Strength training, Postural training, Flexibilty training, Passive ROM, Active ROM, Jus Exercises For the Purpose of:: To decrease pain, To increase ROM, To increase tolerance to activity/condition/position, To improve ability of physical actions for home/community/work/leisure Manual Therapy Techniques to Include: Mobilization, Soft tissue mobilization For the Purpose of:: To increase ROM TENS: Yes Thermo therapy (hot pack): Yes For the Purpose of:: To decrease pain Thank you for the opportunity to evaluate your patient. For Medicare and Medicare HMO plans, please review the plan of care and approve it. It will need to be FAXED BACK to us at [phone] for Medicare purposes. Please let me know if there are questions or concerns regarding this plan of care. Physician Signature: Date: <Electronically signed by Jameel Dawson DPT, OCS, CSCS> 08/29/17 0908 CC: May Alicia DO EBG Signed For Medicare only, by signing this I certify the plan of care. Physicians Signature Date BRAIN WITHOUT Observed: 08/10/2017 Status: F Source: SANDY CONTRAST 7:32 AM [facility] REPOSITORY [facility] [address] [place], [place] [address] [place] [address] Brain without Contrast MR#: [id number] Acct: [id number] Name: WADE ESPARZA Rep #: [id number] : 1990 F 26 From: Blaine Ross MD PCP: May Alicia DO Status: REG CLI Study: Brain without Contrast Date of Exam: 08/10/17 Exam# [id number] Ordering Dr: May Alicia DO STUDY: MRI BRAIN WITHOUT CONTRAST REASON FOR EXAM: Female, 26 years old. Chronic daily headaches radiating to the neck with numbness and tingling in the upper extremities TECHNIQUE: Standardized multiplanar fat and water weighted pulse sequences were obtained. COMPARISON: July 23, 2017 CT examination of the head FINDINGS: Normal size of the ventricles and extra-axial spaces for the patient's age. A few scattered foci of T2/FLAIR hyperintensity in the periventricular white matter noted which are nonspecific in imaging appearance however differential considerations include migraine-related changes. Normal bilateral basal ganglia. Normal thalami. There is no extra-axial fluid accumulation. Normal flow voids within the major intracranial circulation suggesting patency by spin echo criteria. Normal sella turcica, pituitary gland, infundibular stalk, optic chiasm and hypothalamus. Normal tectal plate and pineal gland. Normal midbrain, brittany and medulla. Normal cerebellum. Normal basal cisterns. Normal bilateral temporal bones. Normal bilateral internal auditory canals. No demonstrated orbital abnormality, within the constraints of a routine brain study. Mucous retention cysts in the maxillary sinuses. Normal calvarium and skull base. Normal visualized soft tissue structures. Normal visualized upper cervical spine. MRI/Brain without Contrast IMPRESSION: No evidence for acute or subacute ischemic insult. No evidence for intracranial mass or acute hemorrhage. A few scattered foci of T2/FLAIR hyperintensity in the periventricular white matter noted which are nonspecific in imaging appearance however differential considerations include migraine-related changes. Electronically Signed: Blaine Ross, at 9:46 EST Tel , Service support , CC: May Alicia DO Automotive Fleet Supervisor: Signed SPINE CERVICAL Observed: 08/10/2017 Status: F Source: SANDY (ROUTINE) 7:32 AM [facility] REPOSITORY [facility] Services [address] [place] [address] Spine Cervical (Routine) MR#: [id number] Acct: [id number] Name: WADE ESPARZA Rep #: [id number] : 1990 F 26 From: Blaine Ross MD PCP: May Alicia DO Status: REG CLI Study: Spine Cervical (Routine) Date of Exam: 08/10/17 Exam# [id number] Ordering Dr: May Alicia DO STUDY: MRI CERVICAL SPINE WITHOUT CONTRAST REASON FOR EXAM: Female, 26 years old. Chronic daily headaches radiating to the neck and numbness and tingling in both extremities for 6 years TECHNIQUE: Standardized fat and water weighted pulse sequences were obtained in the sagittal and axial planes. COMPARISON: None FINDINGS: Straightening of normal cervical lordosis. Craniocervical junction appears unremarkable. No definite evidence for cord edema or myelomalacia seen. Minimal anterior wedging of the C3 and C4 and small C5 vertebral bodies which appear chronic. C6 vertebral body hemangioma. Disc desiccation at C2-C3, C3-C4, C4-C5 and C5-C6 levels. Minimal anterior osteophytic spurring. Level by level analysis: C2-C3 level: Facet hypertrophy without significant central canal stenosis or neural foraminal narrowing. C3-C4 level: Mild facet hypertrophy with broad-based disc bulge without significant central canal stenosis or neural foraminal narrowing. Mild effacement of ventral thecal sac. C4-C5 level: Bilateral facet hypertrophy with broad-based disc bulge resulting in mild effacement of ventral thecal sac without significant central canal stenosis or neural foraminal narrowing. C5-C6 level: Bilateral facet hypertrophy and broad-based disc bulge with mild effacement of ventral thecal sac without significant central canal stenosis or neural foraminal narrowing C6-C7 level: Broad-based disc bulge with a superimposed left paracentral small disc protrusion resulting in mild deformity of the left ventrolateral surface of the spinal cord without significant central canal stenosis or neural frontal narrowing C7-T1 level: Neural foramina and central canal are essentially patent No paraspinal soft tissue mass. Vertebral artery flow voids are grossly patent although there is tortuosity which limits assessment. Mucosal thickening of the paranasal sinuses. IMPRESSION: Mild cervical spondylotic changes predominating at C5-C6 and C6-C7 levels. No evidence for acute cervical spine fractures. No significant central canal stenosis. Please see above level by level complete analysis and details. No definite evidence for white matter lesions involving the cervical cord noted Electronically Signed: Blaine Ross, at 10:29 EST Tel , Service support , MRI/Spine Cervical (Routine) CC: May Alicia DO [employer] Supervisor: Signed CERV SPINE 2 OR 3 Observed: 08/01/2017 Status: F Source: RICK VIEWS 8:51 AM [facility] REPOSITORY [facility] [address] [place] [address] Cerv Spine 2 or 3 Views MR#: [id number] Acct: [id number] Name: WADE ESPARZA Rep #: [id number] : 1990 F 26 From: Dre Humphries MD PCP: May Alicia DO Status: REG CLI Study: Cerv Spine 2 or 3 Views Date of Exam: 08/01/17 Exam# [id number] Ordering Dr: May Alicia DO STUDY: X-RAY - CERVICAL SPINE REASON FOR EXAM: Female, 26 years old. Bilateral arm tingling and numbness TECHNIQUE: 3 view(s) of the cervical spine were obtained. COMPARISON: None FINDINGS: Normal anterior atlantoaxial articulation. Normal odontoid process. There is straightening of the normal cervical lordosis. Normal vertebral bodies and endplates. Normal disc space heights. The soft tissue structures are unremarkable. There is no demonstrated fracture of the cervical spine. RAD/Cerv Spine 2 or 3 Views IMPRESSION: Normal x-ray examination of the visualized cervical spine. Electronically Signed: Dre Humphries MD at 17:19 EST , Service support , CC: May Alicia DO Automotive Fleet Supervisor: Signed EMERGENCY DEPARTMENT Observed: 07/24/2017 Status: F Source: RICK SUMMARY 2:52 AM [facility] REPOSITORY [facility] Medical Records Department [address] [place] [address] Emergency Department Summary 07/23/17 2242 MR#: [id number] Acct: [id number] Name: WADE ESPARZA Rep #: [id number] : 1990 26 From: Azeem Guillen MD PCP: May Alicia DO Status: DEP ER - ER Visit Summary Date of Service: 07/23/17 Chief Complaint: Facial numbness History of Present Illness: The patient is a 26 F presenting for evaluation secondary to facial numbness. 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 She denies any weakness visual changes or any numbness or weakness in her arms or legs. She denies any speech difficulty. She has never had any prior similar symptoms in the past. Patient states that she has a history of a low blood pressure that she does not take medications for, she is a non-smoker, but she does have history of chronic headaches they got worked up about 5 years ago with imaging but nothing recently. She denies any recent head injuries. She denies any recent infections fever cough nausea vomiting neck stiffness or skin rashes. Review of systems otherwise negative. Physical Examination: Vital signs are within normal limits, patient is afebrile. General: Patient is well-nourished well-developed and in no acute distress. Head: Normocephalic, atraumatic Eyes: Pupils equal round and reactive bilaterally, extra occular motion intact bialterally ENT: Moist mucous membranes no evidence of vesicular rash on face Neck: Supple, no lymphadenopathy, no JVD, no meningismus CVS: Heart regular rate and rhythm, no murmurs, rubs or gallops, radial pulses 2+ bilaterally Resp: Respirations nondistressed, lung sounds clear bilaterally Abdomen: Soft, nontender, nondistended, no palpable masses, normal bowel sounds Back: Nontender Extremities: Nontender, atraumatic, active full range of motion, no peripheral edema Skin: warm, no rashes, no petechia Neuro: Alert and oriented x 4, CN 2-12 intact, no lateralizing neurological defecits, patient complains of bilateral facial numbness without any evidence of weakness of the facial muscles. Psyc: Normal affect Test Results: CT brain found to be negative. Emergency Department Course and Treatment: Patient presented for evaluation secondary to facial tingling of 2 hours duration. Physical exam was benign except for the patient's subjective feeling of tingling of her face, there is no evidence of vesicular rash on the face, Saravia's palsy, or any other neurologic deficit. CT brain was found to be negative. Patient is 26 years old does not smoke has no risk factors for cerebrovascular disease at this point. I do not believe that she requires admission given her otherwise normal appearance and normal workup. Patient will be given referral to neurology. All questions answered patient was discharged. Disposition: Discharge Impression: 1. Facial paresthesia This note was generated with [employer] dictation software. It may contain incorrect words, spelling, and punctuation that were not noted in review of the chart prior to signing ED Disposition - Plan for ED Patient: Chief Complaint: Numb/Ting Instructions: ED Paraesthesias Referrals: May Alicia DO [Primary Care Provider] - Neto Barth MD [STAFF PHYSICIAN] - 1 Week What to do if you have Problems For any increased pain, shortness of breath, bleeding, nausea or vomiting, chest pain, or any unexpected problems, contact your Primary Care Provider. Call [address] [facility] ([phone]) or report to the closest Emergency Room. Call 911 if necessary. 07/24/17 0252 <Electronically signed by Azeem Guillen MD> Date Azeem Guillen MD Cosigner Signature (If Indicated): Date CC: May Alicia DO BRAIN/HEAD WITHOUT Observed: 07/23/2017 Status: F Source: SANDY CONTRAST 9:43 PM [facility] REPOSITORY [facility] Imaging Services [address] [place] [address] Brain/Head without Contrast MR#: [id number] Acct: [id number] Name: WADE ESPARZA Rep #: [id number] : 1990 F 26 From: Uri Randhawa MD PCP: May Alicia DO Status: REG ER Study: Brain/Head without Contrast Date of Exam: 07/23/17 Exam# [id number] Ordering Dr: Azeem Guillen MD STUDY: CT BRAIN WITHOUT CONTRAST REASON FOR EXAM: Female, 26 years old. Weakness dizziness and facial numbness RADIATION DOSAGE (If Supplied By Facility): CTDIvol = ( 44.99 ) mGy, DLP = ( 762.36 ) mGycm TECHNIQUE: Transaxial CT imaging of the brain was performed without administration of intravenous contrast material. Individualized dose optimization techniques were used for this CT. COMPARISON: September 30, 2014 FINDINGS: Normal soft tissue structures. Normal calvarium. Mild ventricular asymmetry likely normal developmental variant.. Normal white matter tracts of the cerebral hemispheres. Normal basal ganglia and thalami. Normal brainstem. Normal cerebellum. There is no intracranial hemorrhage. There are no findings of an acute ischemic infarction. Normal visualized paranasal sinuses. No significant change since prior study CT/Brain/Head without Contrast IMPRESSION: Normal unenhanced CT scan of the brain. However, if concern for acute infarct MRI recommended. Electronically Signed: Uri Randhawa MD at 22:41 EST , Service support , CC: May Alicia DO; Azeem Guillen [employer] Fleet Supervisor: Signed ALLERGIES ALLERGIES DATE TYPE / CODE NAME / CODE REACTION SEVERITY SOURCE 05/16/2018 Drug No Known Unknown [facility] Allergy/4160 Allergies/F00 [facility] 76880(SNOMED [id number](RXNOR Repository CT) M) ENCOUNTERS ENCOUNTERS ADMIT/DISCHARGE ACCOUNT ADMITTING ENCOUNTER LOCATION SOURCE NUMBER CLASS 05/16/2018/ [id number] Ambulatory BMSBuilding:B Rick 8 8 MS.NOW [facility] Repository 05/16/2018/ [id number] Ambulatory BMSBuilding:B Rick 8 4 MS.[facility] Repository 05/02/2018/ [id number] Ambulatory BMSBuilding:B Rick 8 3 MS.NOW [facility] Repository 04/30/2018/ [id number] [place] [facility] ing:ED Repository 04/23/2018 [id number] Ambulatory [place] 3 [facility] ing:OPUS Repository 04/03/2018 [id number] [place] 4 [facility] ing:WOBLAB Repository 03/24/2018 [id number] Ambulatory [place] 4 [facility] ing:WOBLAB Repository 01/29/2018 [id number] Ambulatory [place] 6 [facility] ing:EMPH Repository 09/30/2017/ [id number] Amb[place] 5 [facility] ing:PT Repository 08/10/2017 [id number] Amb[place] 4 [facility] ing:MRI Repository 08/01/2017 [id number] [place] 6 [facility] ing:HPRAD Repository 07/23/2017/ [id number] Emergency [place] 8 2 [facility] ing:ED Repository PAYERS PAYERS ENCOUNTER GUARANTOR PAYER SUBSCRIBER SOURCE 05/16/2018 WADE CARRILLO Primary Insurance:[facility] WADE CARRILLO Rick [id number] [facility] NEALDOB: [facility] [place] [id number] Number: Repository [id number]: [phone] [id number] [phone] () Date:2787-92-32ZX [address]QQFZYZ, [place] [address]TC: CHECK WEBSITE 05/16/2018 Secondary NOT GIVENUNK [place] Insurance:SELF PAY [place] Number: Effective Repository Date:2018-05-16 05/16/2018 WADE CARRILLO Primary WADE CARRILLO [place] [id number] PULLMAN Insurance:OB NEALDOB: [facility] [id number] Number: Repository [address]Eir: [phone] [id number] [phone] () Date:6806-89-04MN [address], [place] [address]VY: 05/16/2018 Secondary NOT GIVENUNK Rick Insurance:SELF PAY [place] Number: Effective Repository Date:2018-05-16 05/02/2018 WADE LORENA Primary WADE LORENA [place] [id number] TUSHAR Insurance:OB NEALDOB: [facility] 1923-86-[place] Number: Repository [id number]: [phone] [id number] [phone] () Date:3225-97-32YK [address]LVLAEG, [place] [address]UN: 05/02/2018 Secondary NOT GIVENUNK [place] Insurance:SELF PAY [facility] Hospital Number: Effective Repository Date:2018-05-02 04/30/2018 WAED LORENA Primary WADE LORENA Rick [id number] TUSHAR Insurance:[facility] NEALDOB: [facility] 5772-58-[place] Number: Repository [id number]: [phone] [id number] [phone] () Date:8193-40-47AN [address]URYXNT[place], [place] [address]YF: 04/30/2018 Secondary WADE LORENA Rick [facility] [id number] Hospital Number: Repository [id number] Date:2663-52-33GW [address] [address]SSWXVZTNI, [place] [address]HE: CHECK WEBSITE 04/30/2018 Tertiary NOT GIVENUNK Rick Insurance:SELF PAY [place] Number: Effective Repository Date:2018-04-30 04/23/2018 WADE LORENA Primary Insurance:[facility] WADE LORENA Rick [id number] [facility] [place] 5630-92-65[place] Number: Repository [id number]: [phone] [id number] [phone] (HP) Date:3426-54-18QI [address] [address]PEYILAZKV, [place] [address]HL: CHECK WEBSITE 04/23/2018 Secondary NOT GIVENUNK Rick Insurance:SELF PAY [place] Number: Effective Repository Date:2018-04-23 04/03/2018 WADE CARRILLO Primary Insurance:[facility] WADE CARRILLO [place] [id number] [facility] [place] 9787-21-77[place], [place] Number: Repository [address]Zcp: 330 [id number] [phone] (HP) Date:2111-75-74NJ [address] [address]IVZFZFKCB, [place] [address]MB: CHECK WEBSITE 04/03/2018 Secondary NOT GIVENUNK Rick Insurance:SELF PAY [place] Number: Effective Repository Date:2018-04-03 03/24/2018 WADE CARRILLO Primary Insurance:[facility] WADE CARRILLO [place] [id number] [facility] [place] 0420-22-44[place], [place] Number: Repository [address]Lww: 330 [id number] [phone] (HP) Date:6424-81-95DE [address] [address]TGAIGCTGR, [place] [address]KD: CHECK WEBSITE 03/24/2018 Secondary NOT GIVENUNK [place] Insurance:SELF PAY [place] Number: Effective Repository Date:2018-03-24 01/29/2018 WADE TREJONE Primary NOT GIVENUNK Rick [id number] TUSHAR Insurance:SELF PAY [place] Number: Effective Repository [address]Dqk: [phone]) Date:2018-01-29 [phone] () 09/30/2017 WADE CARRILLO Primary Insurance:[facility] WADE Thaooster [id number] [facility]: [facility] [place] 2839-10-95[place], [place] Number: Repository [phone]: 330 [id number] [phone] (HP) Date:6360-41-43GH [address] [address]XNCSJXTYB, [place] [address]JM: CHECK WEBSITE 09/30/2017 Secondary NOT GIVENUNK [place] Insurance:SELF PAY [place] Number: Effective Repository Date:2017-08-14 08/10/2017 WADE CARRILLO Primary Insurance:[facility] WADE CARRILLO [place] [id number] [facility] NEALDOB: [facility] [place] 2049-11-40[place]VL[place], [place] Number: Repository [address]Gur: 330 [id number] [phone] (HP) Date:6175-91-32IY [address] [address]HUUKZBREL, [place] [address]OM: CHECK WEBSITE 08/10/2017 Secondary NOT GIVENUNK [place] Insurance:SELF PAY [place] Number: Effective Repository Date:2017-08-01 08/01/2017 WADE CARRILLO Primary Insurance:[facility] WADE CARRILLO Rick [id number] [facility] [place] 3119-63-11[place]BT[place], [place] Number: Repository [address]Ttq: 330 [id number] [phone] (HP) Date:1066-69-57YT [address] [address]YVKPXNIOB, [place] [address]NT: CHECK WEBSITE 08/01/2017 Secondary NOT GIVENUNK [place] Insurance:SELF PAY [place] Number: Effective Repository Date:2017-08-01 07/23/2017 WADE CARRILLO Primary Insurance:[facility] WADE CARRILLO [place] [id number] [facility] [place] 2212-15-51[place]LLane, [place] Number: Repository [id number]: 330 [id number] [phone] (HP) Date:9714-15-41GW [address] [address]DLNAVYQKP, [place] [address]MZ: CHECK WEBSITE 07/23/2017 Secondary NOT GIVENUNK Rick Insurance:SELF PAY [place] Number: Effective Repository Date:2017-07-23
== END 2018-04-30 23:23 | disposition home or self-care (01) ==
PROVIDERS: Emergency Provider Emergency Medicine; Family Provider Internal Medicine; PCP Internal Medicine
DX: T75.4XXA Electrocution, initial encounter (principal); W86.8XXA Exposure to other electric current, initial encounter; Y93.89 Activity, other specified; Y92.239 Unspecified place in hospital as the place of occurrence of the external cause; Y99.0 Civilian activity done for income or pay; E66.9 Obesity, unspecified; K50.90 Crohn's disease, unspecified, without complications
CPT/HCPCS: 99284

== ENCOUNTER → 2018-09-25 13:05 | Outpatient (CLI) | payer OTHER, SELFPAY ==
[2018-05-16 11:51] VITALS: BMI 43.0
[2018-09-30 17:55] LABS: HPV Reflexed? NOT INDICATED
== END ==
PROVIDERS: Family Provider Internal Medicine; PCP Internal Medicine; Referring Provider Obstetrics & Gynecology; Visit Provider Obstetrics & Gynecology
DX: R87.610 Atypical squamous cells of undetermined significance on cytologic smear of cervix (ASC-US) (principal)
CPT/HCPCS: 88175; G0145

== ENCOUNTER → 2019-07-31 11:08 | Outpatient (CLI) | payer OTHER, SELFPAY ==
[2018-05-16 11:51] VITALS: BMI 43.0
[2019-07-31 12:42] LABS: Hematocrit 39.7 % (37-47); Hemoglobin 12.9 g/dL (12.0-15.0); Mean Corp Hgb Conc 32.5 g/dL (32-36); Mean Corpuscular Hgb 29.3 pg (27.0-32.0); Mean Platelet Vol. 10.4 fl (6.2-12.0); Platelet Count 351 K/mm3 (150-450); RBC Distribution Width CV 11.6 % (11.6-14.6); RBC Distribution Width SD 37.9 fl (35.1-43.9); Red Blood Count 4.41 M/mm3 (4.2-5.4); White Blood Count 9.6 K/mm3 (4.4-11.0)
[2019-07-31 13:01] LABS: ALB/GLOB Ratio 0.8 RATIO (0.9-2.4); AST(SGOT) 12 U/L (15-37); Alanine Aminotransfer ALT/SGPT 20 U/L (13-56); Albumin, Serum 3.3 g/dL (3.2-5.0); Alkaline Phosphatase 81 U/L (45-117); Anion Gap 6 (5-15); BUN 7 mg/dL (7-18); BUN/Creat Ratio 12.3 RATIO (10-20); Calcium,Total 9.2 mg/dL (8.5-10.1); Chloride 102 mmol/L (98-107); Creatinine, Serum 0.57 mg/dL (0.55-1.02); EST Glomerular Filtration Rate 134 mL/min (>60); Est Glom Filt Rate - Afr Amer 163 mL/min (>60); Ferritin 61 ng/mL (8-252); Globulin 4.4 g/dL (2.2-4.2); Glucose 85 mg/dL (74-106); Iron 64 ug/dL (50-170); Iron Binding Capacity,Total 409 ug/dL (250-450); PERCENT IRON SATURATION 15.6 % (15.0-55.0); Potassium 4.2 mmol/L (3.5-5.1); Protein, Total 7.7 g/dL (6.4-8.2); Sodium Level 137 mmol/L (136-145); Vitamin B12 634 pg/mL (211-911); Vitamin D,25 Hydroxy 23.9 ng/mL
== END ==
PROVIDERS: PCP Internal Medicine; Referring Provider Internal Medicine; Visit Provider Internal Medicine
DX: K50.00 Crohn's disease of small intestine without complications (principal); R10.84 Generalized abdominal pain; R19.7 Diarrhea, unspecified
CPT/HCPCS: 36415; 80053; 82306; 82607; 82728; 83540; 83550; 85027; 86140

== ENCOUNTER → 2019-08-10 08:19 | Outpatient (CLI) | payer OTHER, SELFPAY ==
[2018-05-16 11:51] VITALS: BMI 43.0
--- NOTE | 2019-08-10 08:25 | MRI_ITS ---
STUDY: MRI ABDOMEN WITH AND WITHOUT CONTRAST REASON FOR EXAM: Female, 28 years old. abd pain, crohn''s, diarrhea -- gb removed TECHNIQUE: Standardized fat and water weighted pulse sequences were obtained in all 3 orthogonal planes post contrast administration. IV 24 ml dotarem and iv 1 mg glucagon was administered for the contrast portion of the examination. COMPARISON: None. FINDINGS: The visualized lung bases are unremarkable. The visualized portions of the heart are within normal limits. Normal liver. There are surgical clips in the gallbladder fossa consistent with a prior cholecystectomy. Normal spleen. Normal pancreas. Normal bilateral adrenal glands. Normal right kidney. Normal left kidney. Normal visualized stomach. 12 cm long segment of terminal ileum which demonstrates mild dilatation with loss of normal folds and circumferential mild wall thickening as well as mild fibrofatty proliferation consistent with chronic Crohn''s disease. However, no evidence of transmural inflammation, abscess, or fistula. Normal colon. There is non-visualization of the appendix. Normal abdominal aorta. Normal inferior vena cava. Normal retroperitoneum. Normal abdominal wall. Normal osseous structures. MRI/MRI Abd WITH and W/O Contrast IMPRESSION: Chronic Crohn''s disease of the terminal ileum with mild dilatation and circumferential wall thickening but no evidence of transmural inflammation, abscess, or fistula. Electronically Signed: Ravi Gary MD at 9:17 EDT Tel , Service support ,
[2019-08-10 09:31] VITALS: BP 141/95; PULSE 94; RESP 16; TEMP 36.7; O2SAT 98; BMI 40.8
[2019-08-10] MEDS: Glucagon 1 MG/ML Syringe IV (10:26)
[2019-08-10 10:55] VITALS: BP 147/91; PULSE 94; RESP 14; O2SAT 95
== END ==
PROVIDERS: PCP Internal Medicine; Referring Provider Internal Medicine; Visit Provider Internal Medicine
DX: K50.00 Crohn's disease of small intestine without complications (principal)
CPT/HCPCS: 74183; 96374; A9575; A4216; J1610

== ENCOUNTER → 2019-08-24 15:13 | Outpatient (CLI) | payer OTHER, SELFPAY ==
[2019-08-10 09:31] VITALS: BMI 40.8
[2019-08-25 10:34] LABS: Hepatitis B Surface Antibody Reactive; Hepatitis B Surface Antigen Non-Reactive (Nonreactive)
[2019-08-26 20:07] LABS: QNTFERON TB Mitogen Value > 10.00 IU/mL (.); QNTFERON TB Nil Value 0.05 IU/mL (.); QNTFERON TB1+ Ag Value 0.05 IU/mL (.); QNTFERON TB2+ Ag Value 0.05 IU/mL (.)
[2019-08-26 20:33] LABS: QNTIFERON TB Positive Criteria Negative (Negative)
== END ==
PROVIDERS: PCP Internal Medicine; Referring Provider Internal Medicine; Visit Provider Internal Medicine
DX: K50.00 Crohn's disease of small intestine without complications (principal)
CPT/HCPCS: 36415; 86480; 86706; 87340

== ENCOUNTER 2019-08-24 18:52 | Emergency (ER) | payer OTHER, SELFPAY ==
[2019-08-10 09:31] VITALS: BMI 40.8
[2019-08-24 18:53] VITALS: BP 136/94; PULSE 98; RESP 16; TEMP 36.6; O2SAT 100; BMI 41.5
--- NOTE | 2019-08-24 19:07 | ED.VIS.GEN ---
History of Present Illness Chief Complaint: Syncope Detail of Chief Complaint: History of orthostatic hypotension confirmed by table tilt test Informant: Patient Onset: Today Context: Sudden Onset Timing: Intermittent Quality: Lightheaded, blood pressure 60 then passed out Location: [facility] Current Severity: - - Orthostatic symptoms have resolved Maximum Severity: Severe Worsened by: Not drinking as much fluids as instructed to and not putting salt on food Relieved by: Nothing Associated Symptoms: Pallor, nausea and loss of consciousness Narrative: Patient is a 28-year-old woman who was recently diagnosed with Crohn's disease and history of orthostatic hypotension. She had a positive table tilt test. She was instructed by forepart rounder at [facility] to increase the salt in her food and drink more fluids. She has not been compliant. She is not on any steroid therapy. She states she was cleaning her room. She felt lightheaded. She checked her blood pressures that she has a portable blood pressure monitor. Her systolic pressure was 60. She states her lightheadedness got worse. She passed out. She was informed that she was pale. PILE OPERATOR report was read. Blood pressure per PILE OPERATOR was 198/93 with a heart rate of 102. Patient does report blood in her stool. She states she is had no increased blood or bowel movement. She denies thirst or dry mouth. She denies headache. Denies visual, ocular auditory symptoms. No trouble speech or swallowing. She denies chest pain or shortness of breath. She states her menses is due in less than 1 week. She is on control pills. She has no symptoms of . She denies any urologic symptoms. Prior similar symptoms: Yes Recent Illness/Hospitalization: No - Past Medical History (1) Orthostatic hypotension Status: Acute (2) Crohn's disease Status: Acute Past Medical History - Allergies and Home Meds Allergies/Adverse Reactions: Allergies No Known Allergies Allergy (Verified 08/24/19 18:56) Primary Care Physician: May Alicia DO [Primary Care Provider] - Prior records reviewed: Yes Lives: Alone Smoking Status: Never smoker Alcohol: None Drugs: None Review of Systems General: Denies: Chills, Fever, Malaise, Sweats, Weight loss Eyes: Denies: Visual changes - bilaterally, Blurred Vision - bilaterally ENT: Denies: Rhinorrhea, Sore throat Cardiovascular: Denies: Chest pain, Palpitations, Heart racing Respiratory: Denies: Dyspnea, Cough, Dyspnea on exertion Gastrointestinal: Reports: Abdominal pain - Nominal pain is chronic, Nausea, Hematochezia - Chronic. Denies: Vomiting, Diarrhea, Constipation, Melena, -, - Genitourinary: Denies: Dysuria, Hematuria, Frequency Musculoskeletal: Denies: Myalgias, Arthralgias, Neck pain, Back pain, Swelling, Extremity Pain, -, - Skin: Denies: Rash, Wounds Neurological: Denies: Headache, Weakness, Numbness Endocrine: Denies: Polyuria, Polydipsia Hematologic: Denies: Easy bruising, Easy bleeding Physical Exam Vital Signs/Narrative: Vital Signs Temp Pulse Resp BP Pulse Ox 08/24/19 18:53 97.8 F 98 16 136/94 H 100 Inital Vital Signs reviewed: Yes General: Well nourished, Well developed, Obese, No Acute Distress Head: Normocephalic, Atraumatic Eyes: Perrl, EOMI. Negative for: Pale conjunctiva, Scleral icterus ENT: No rhinorrhea, Dry mucous membranes Neck: Supple, Nontender, No lymphadenopathy, No JVD Cardiovascular: Regular rate, Regular rhythm, No murmurs, Normal S1, Normal S2 Respiratory: No distress, CTA bilaterally, Chest nontender Abdomen: Soft, Nondistended, Normal bowel sounds, No masses, Tender. Negative for: Guarding, Rebound tenderness Rectal: Deferred Back: Nontender, Normal Inspection. Negative for: CVA tenderness, Spinal tenderness Extremities: - - Is are noted on the extremity. This may be secondary to blood work that she has had recently.. Negative for: Nontender, No edema Skin: Normal color, No rash Neurological: Alert, Oriented x3, Cranial nerves II-XII grossly intact, Normal Strength, Normal Sensation Psychological: Normal affect, Normal Mood Diagnostic/Tx/Re-eval Laboratory Results 08/24/19 08/24/19 19:15 19:15 WBC 15.4 H RBC 4.57 Hgb 13.9 Hct 41.7 MCV 91.2 MCH 30.4 MCHC 33.3 RDW Std Deviation 38.5 RDW Coeff of Sharmin 11.8 Plt Count 326 MPV 10.6 Sodium 136 Potassium 4.1 Chloride 104 Carbon Dioxide 25.0 Anion Gap 7 BUN 12 Creatinine 0.74 Estim Creat Clear Calc 111.05 Est GFR (MDRD) Af Amer 120 Est GFR (MDRD) Non-Af 99 BUN/Creatinine Ratio 16.1 Glucose 111 H Calcium 9.1 H&H is slightly higher than prior. Basic metabolic panel is unremarkable. Monitor without ectopy during her stay. - Medical Decision Making Clinically patient appears dehydrated. IV was established he was see 1 L of normal saline wide open. H&H was obtained to assess hemoglobin since she is reporting blood in stool and compared to prior. Basic metabolic panel to assess electrolytes and BUN to creatinine ratio. ED Disposition - Plan for ED Patient: Disposition: Home or Assisted Living Diagnosis: Neurogenic orthostatic hypotension, Near syncope Instructions: NEAR SYNCOPE, Vasovagal, HYPOTENSION, Orthostatic Referrals: May Alicia, [Primary Care Provider] - As Needed Additional Instructions: You need to make sure you drink plenty of fluids and add salt to your diet as instructed by your forepart rounder otherwise you may need to be placed on a steroid.
[2019-08-24 19:13] VITALS: BP 107/87; PULSE 110; RESP 17; O2SAT 96
[2019-08-24 19:27] LABS: Hematocrit 41.7 % (37-47); Hemoglobin 13.9 g/dL (12.0-15.0); Mean Corp Hgb Conc 33.3 g/dL (32-36); Mean Corpuscular Hgb 30.4 pg (27.0-32.0); Mean Corpuscular Volume 91.2 fL (81-99); Mean Platelet Vol. 10.6 fl (6.2-12.0); Platelet Count 326 K/mm3 (150-450); RBC Distribution Width CV 11.8 % (11.6-14.6); RBC Distribution Width SD 38.5 fl (35.1-43.9); Red Blood Count 4.57 M/mm3 (4.2-5.4); White Blood Count 15.4 K/mm3 (4.4-11.0)
[2019-08-24] MEDS: 0.9% Normal Saline 1,000 ML 1000 ML IV (19:32)
[2019-08-24 19:46] LABS: Anion Gap 7 (5-15); BUN 12 mg/dL (7-18); BUN/Creat Ratio 16.1 RATIO (10-20); Calcium,Total 9.1 mg/dL (8.5-10.1); Chloride 104 mmol/L (98-107); Creatinine, Serum 0.74 mg/dL (0.55-1.02); EST Glomerular Filtration Rate 99 mL/min (>60); Est Glom Filt Rate - Afr Amer 120 mL/min (>60); Estimated Creatinine Clearance 111.05 ml/min; Glucose 111 mg/dL (74-106); Potassium 4.1 mmol/L (3.5-5.1); Sodium Level 136 mmol/L (136-145)
[2019-08-24 20:13] VITALS: BP 110/83; PULSE 96; RESP 22; O2SAT 98
== END 2019-08-24 22:41 | disposition home or self-care (01) ==
PROVIDERS: Emergency Provider Emergency Medicine; PCP Internal Medicine
DX: G90.3 Multi-system degeneration of the autonomic nervous system (principal); K50.911 Crohn's disease, unspecified, with rectal bleeding; E66.9 Obesity, unspecified; Z68.41 Body mass index [BMI] 40.0-44.9, adult; Z91.19 Patient's noncompliance with other medical treatment and regimen
CPT/HCPCS: 80048; 85027; 96360; 99285; J7030; A4216

== ENCOUNTER → 2019-10-07 12:22 | Outpatient (CLI) | payer OTHER, SELFPAY ==
[2019-10-07 13:12] LABS: Hematocrit 41.2 % (37-47); Hemoglobin 13.3 g/dL (12.0-15.0); Mean Corp Hgb Conc 32.3 g/dL (32-36); Mean Corpuscular Hgb 30.4 pg (27.0-32.0); Mean Corpuscular Volume 94.1 fL (81-99); Mean Platelet Vol. 10.3 fl (6.2-12.0); Platelet Count 311 K/mm3 (150-450); RBC Distribution Width CV 11.9 % (11.6-14.6); RBC Distribution Width SD 41.1 fl (35.1-43.9); Red Blood Count 4.38 M/mm3 (4.2-5.4); White Blood Count 9.8 K/mm3 (4.4-11.0)
[2019-10-07 13:51] LABS: ALB/GLOB Ratio 0.8 RATIO (0.9-2.4); AST(SGOT) 14 U/L (15-37); Alanine Aminotransfer ALT/SGPT 21 U/L (13-56); Albumin, Serum 3.3 g/dL (3.2-5.0); Alkaline Phosphatase 70 U/L (45-117); Anion Gap 6 (5-15); BUN 9 mg/dL (7-18); BUN/Creat Ratio 13.6 RATIO (10-20); Calcium,Total 9.2 mg/dL (8.5-10.1); Chloride 102 mmol/L (98-107); Creatinine, Serum 0.66 mg/dL (0.55-1.02); EST Glomerular Filtration Rate 113 mL/min (>60); Est Glom Filt Rate - Afr Amer 136 mL/min (>60); Globulin 4.2 g/dL (2.2-4.2); Glucose 82 mg/dL (74-106); Potassium 4.1 mmol/L (3.5-5.1); Protein, Total 7.5 g/dL (6.4-8.2); Sodium Level 138 mmol/L (136-145)
== END ==
PROVIDERS: PCP Internal Medicine; Referring Provider Internal Medicine; Visit Provider Internal Medicine
DX: K50.00 Crohn's disease of small intestine without complications (principal)
CPT/HCPCS: 36415; 80053; 85027; 86140

== ENCOUNTER → 2019-10-21 15:26 | Outpatient (CLI) | payer OTHER, SELFPAY ==
[2019-10-29 11:17] LABS: Calprotectin, Stool 146 ug/g (0-120)
== END ==
PROVIDERS: PCP Internal Medicine; Referring Provider Internal Medicine; Visit Provider Internal Medicine
DX: K50.00 Crohn's disease of small intestine without complications (principal); R19.7 Diarrhea, unspecified; R10.84 Generalized abdominal pain
CPT/HCPCS: 83993; 87493

== ENCOUNTER → 2020-01-13 08:42 | Outpatient (CLI) | payer OTHER, SELFPAY ==
--- NOTE | 2020-01-13 09:11 | MRI_ITS ---
STUDY: MRI ABDOMEN WITH AND WITHOUT CONTRAST REASON FOR EXAM: Female, 29 years old. Crohn''s disease, recheck. Medicated with HUMIRA, apparently not working. Abdominal pain. TECHNIQUE: Multisequence multiplanar MRI of the abdomen an pelvis was performed without and with IV contrast 25 mL Dotarem, with GLUCAGON administration 1 mg IV, enterography technique. COMPARISON: 08/10/2019 MRI abdomen, ultrasound abdomen 09/09/2014, CT abdomen and pelvis 07/28/2014 FINDINGS: Duodenum and jejunum: No apparent inflammation. Terminal ileum: There is mild thickening and hyperemia in the wall of the terminal ileum. Consistent with mild active terminal ileitis. Ascending and transverse colon: Normal cecum. Moderate circumferential thickening of the wall of the ascending colon into the hepatic flexure and involving the entire transverse colon and splenic flexure, mild hyperenhancement of the wall. Apparent mild hyperemia in the adjacent mesentery. Consistent with acute colitis. Descending colon: Much of the descending colon exhibits mild circumferential thickening of the wall and hyperemia of the wall, with mild apparent hyperemia in the adjacent mesentery. Consistent with mild acute colitis. Sigmoid colon: Diffusely, moderate circumferential thickening, prominent hyperenhancement of the wall, hyperemia in the immediately adjacent mesenteric vessels. Consistent with acute sigmoid colitis. Rectum: No evidence of acute proctitis. There is no ascites or free air. No other significant abdominopelvic pathology is evident. In comparison to prior imaging of 08/10/2019: There is a lesser degree of wall thickening and hyperemia in the distal ileum on today''s study. There is now increased involvement of the ascending colon, hepatic flexure, and proximal to mid transverse colon. There are similar features in the descending colon. There is worsening of both wall thickening and hyperenhancement in the sigmoid colon. MRI/MRI Abd WITH and W/O Contrast IMPRESSION: The distribution of terminal ileitis, and colitis is consistent with the patient''s underlying diagnosis of Crohn''s disease. Compared to prior imaging: There is diminished intensity of terminal ileitis on today''s study. The wall is only mildly thickened and mildly hyperemic. There is increased inflammation of the ascending and transverse colon. There is a stable degree of mild inflammation of the descending colon. There is increased inflammation of the entirety of the sigmoid colon. Electronically Signed: Ravi Bonner MD at 17:32 EDT Tel , Service support ,
[2020-01-13 09:26] VITALS: BP 149/82; PULSE 91; RESP 14; O2SAT 98; BMI 40.8
[2020-01-13 09:40] LABS: Hematocrit 39.5 % (37-47); Hemoglobin 13.2 g/dL (12.0-15.0); Mean Corp Hgb Conc 33.4 g/dL (32-36); Mean Corpuscular Hgb 31.1 pg (27.0-32.0); Mean Corpuscular Volume 92.9 fL (81-99); Mean Platelet Vol. 10.4 fl (6.2-12.0); Platelet Count 321 K/mm3 (150-450); RBC Distribution Width CV 11.5 % (11.6-14.6); RBC Distribution Width SD 38.7 fl (35.1-43.9); Red Blood Count 4.25 M/mm3 (4.2-5.4); White Blood Count 10.9 K/mm3 (4.4-11.0)
[2020-01-13 10:14] LABS: ALB/GLOB Ratio 0.7 RATIO (0.9-2.4); AST(SGOT) 26 U/L (15-37); Alanine Aminotransfer ALT/SGPT 27 U/L (13-56); Albumin, Serum 3.1 g/dL (3.2-5.0); Alkaline Phosphatase 63 U/L (45-117); Anion Gap 6 (5-15); BUN 8 mg/dL (7-18); BUN/Creat Ratio 12.3 RATIO (10-20); Calcium,Total 8.4 mg/dL (8.5-10.1); Chloride 102 mmol/L (98-107); Creatinine, Serum 0.65 mg/dL (0.55-1.02); EST Glomerular Filtration Rate 115 mL/min (>60); Est Glom Filt Rate - Afr Amer 139 mL/min (>60); Estimated Creatinine Clearance 125.31 ml/min; Globulin 4.2 g/dL (2.2-4.2); Glucose 78 mg/dL (74-106); Potassium 4.1 mmol/L (3.5-5.1); Protein, Total 7.3 g/dL (6.4-8.2); Sodium Level 138 mmol/L (136-145)
[2020-01-13] MEDS: Glucagon 1 MG/ML Syringe IV (10:52)
[2020-01-13 11:15] VITALS: BP 136/87; PULSE 90; RESP 14; O2SAT 97
== END ==
PROVIDERS: PCP Internal Medicine; Referring Provider Internal Medicine; Visit Provider Internal Medicine
DX: K50.00 Crohn's disease of small intestine without complications (principal); R10.84 Generalized abdominal pain; R19.7 Diarrhea, unspecified
CPT/HCPCS: 36415; 74183; 80053; 85027; 86140; 96374; A9575; J1610

== ENCOUNTER 2020-07-20 14:57 | Emergency (ER) | payer OTHER, SELFPAY ==
[2020-01-13 09:26] VITALS: BMI 40.8
[2020-07-20 14:59] VITALS: BP 152/98; PULSE 124; RESP 18; TEMP 36.4; O2SAT 99; BMI 45.6
[2020-07-20 15:02] VITALS: BP 152/98; PULSE 124; RESP 18; TEMP 36.4; O2SAT 99
--- NOTE | 2020-07-20 15:08 | ED.VIS.GEN ---
History of Present Illness Chief Complaint: Dizziness Informant: Patient Narrative: 29-year-old female presenting with lightheadedness. She states that this is a new problem for her. She states that she is also been little for to eat and had weight gain of approximately 20 pounds. She called her PCP today to get an appointment however she was sent to the emergency room because her primary care physician thought she needed a blood transfusion. Patient states she has a history of Crohn's disease and has had intermittent black stools previously. She states her abdomen intermittently crampy however she has no new symptoms. Patient denies fever, chills, body aches, change in taste or smell, cough. She denies chest pain or shortness of breath. Patient does state that she is craving red meat, eating ice a lot. - Past Medical History (1) Crohn's disease Status: Chronic (2) Orthostatic hypotension Status: Chronic Past Medical History - Allergies and Home Meds Allergies/Adverse Reactions: Allergies No Known Allergies Allergy (Verified 08/24/19 18:56) Primary Care Physician: May Alicia DO [Primary Care Provider] - Prior records reviewed: Yes Past Medical History: - - Reviewed in problem list Surgical History: noncontributory Lives: Alone Smoking Status: Never smoker Alcohol: None Drugs: None Review of Systems General: Reports: - - Weight gain and slight fatigue as well as lightheadedness. Denies: Chills, Fever, Sweats Eyes: Denies: Visual changes - bilaterally, Diplopia ENT: Denies: Rhinorrhea, Sore throat Cardiovascular: Denies: Chest pain, Palpitations Respiratory: Denies: Dyspnea, Cough Gastrointestinal: Denies: Nausea, Vomiting Genitourinary: Denies: Dysuria, Hematuria Musculoskeletal: Denies: Myalgias, Arthralgias Skin: Denies: Rash, Abscess Neurological: Denies: Headache, Parasthesia, Numbness Psych: Denies: Depression, Anxiety Physical Exam Vital Signs/Narrative: Vital Signs Temp Pulse Resp BP Pulse Ox 07/20/20 15:02 97.5 F L 124 H 18 152/98 H 99 07/20/20 14:59 97.5 F L 124 H 18 152/98 H 99 Inital Vital Signs reviewed: Yes General: Well nourished, Well developed, No Acute Distress Head: Atraumatic Eyes: Perrl, EOMI. Negative for: Pale conjunctiva ENT: Moist mucous membranes, No rhinorrhea Cardiovascular: Regular rate, Regular rhythm Respiratory: No distress, CTA bilaterally Abdomen: Soft, Nontender, Nondistended Extremities: Nontender, No edema Skin: Normal color, No rash. Negative for: Cyanosis, Pallor Neurological: Alert, Oriented x3, Cranial nerves II-XII grossly intact Psychological: Normal affect, Normal Mood Diagnostic/Tx/Re-eval Laboratory Data 07/20/20 07/20/20 15:45 15:45 WBC 8.0 RBC 4.32 Hgb 13.3 Hct 39.6 MCV 91.7 MCH 30.8 MCHC 33.6 RDW Std Deviation 37.9 RDW Coeff of Sharmin 11.3 L Plt Count 302 MPV 10.0 Immature Gran % (Auto) 0.400 Neut % (Auto) 60.7 Lymph % (Auto) 29.2 [place] % (Auto) 7.8 Eos % (Auto) 1.4 Baso % (Auto) 0.5 Absolute Neuts (auto) 4.8 Absolute Lymphs (auto) 2.32 Nucleated RBC % 0 Sodium 140 Potassium 3.7 Chloride 108 H Carbon Dioxide 27.0 Anion Gap 5 BUN 7 Creatinine 0.56 Estim Creat Clear Calc 150.88 Est GFR (MDRD) Af Amer 166 Est GFR (MDRD) Non-Af 137 BUN/Creatinine Ratio 12.6 Glucose 125 H Calcium 8.5 Total Bilirubin 0.40 AST 15 ALT 26 Alkaline Phosphatase 67 Total Protein 7.2 Albumin 3.1 L Globulin 4.1 Albumin/Globulin Ratio 0.8 L TSH 1.07 - Medical Decision Making 29-year-old female presenting with lightheadedness. She states that her PCP told her to come in for a blood transfusion. Her orthostatic vitals are normal. She does not feel vertiginous dizziness and it is not reproducible. Patient does not have any headache or paresthesias. Patient has a stable gait and able to ambulate. She has no focal neurologic deficits or lateralizing signs or symptoms. Patient's CBC, CMP are normal. TSH is normal. Given negative work-up patient will be discharged home to follow-up with her PCP. Impression: 1. Lightheadedness ED Disposition - Plan for ED Patient: Disposition: Home or Assisted Living Instructions: ED Dizziness, Uncertain Cause Referrals: May Alicia DO [Primary Care Provider] -
[2020-07-20 15:45] VITALS: BP 146/79; BP 156/106; BP 161/108; PULSE 104; PULSE 114; PULSE 96
[2020-07-20 16:06] LABS: Absolute Lymphocyte Count 2.32 X10^3/uL (0.83-4.51); Absolute Neutrophil Count 4.8 X10^3/uL (2.0-7.7); Basophil# 0.04 X10^3/uL; Basophil% 0.5 % (0-1); Eosinophil# 0.11 X10^3/uL; Eosinophils% 1.4 % (0-5); Hematocrit 39.6 % (37-47); Hemoglobin 13.3 g/dL (12.0-15.0); Lymphocyte # 2.32 X10^3/ul (4.0); Lymphocyte % 29.2 % (19-41); Mean Corp Hgb Conc 33.6 g/dL (32-36); Mean Corpuscular Hgb 30.8 pg (27.0-32.0); Mean Corpuscular Volume 91.7 fL (81-99); Monocyte# 0.62 X10^3/uL; Monocyte% 7.8 % (0-10); NRBC Flagged by Analyzer 0 % (0-5); Neutrophil # 4.83 X10^3/uL (2.7-7.7); Neutrophil % 60.7 % (47-70); Platelet Count 302 K/mm3 (150-450); RBC Distribution Width CV 11.3 % (11.6-14.6); RBC Distribution Width SD 37.9 fl (35.1-43.9); Red Blood Count 4.32 M/mm3 (4.2-5.4)
[2020-07-20 16:16] LABS: ALB/GLOB Ratio 0.8 RATIO (0.9-2.4); AST(SGOT) 15 U/L (15-37); Alanine Aminotransfer ALT/SGPT 26 U/L (13-56); Albumin, Serum 3.1 g/dL (3.2-5.0); Alkaline Phosphatase 67 U/L (45-117); Anion Gap 5 (5-15); BUN 7 mg/dL (7-18); BUN/Creat Ratio 12.6 RATIO (10-20); Calcium,Total 8.5 mg/dL (8.5-10.1); Chloride 108 mmol/L (98-107); Creatinine, Serum 0.56 mg/dL (0.55-1.02); EST Glomerular Filtration Rate 137 mL/min (>60); Est Glom Filt Rate - Afr Amer 166 mL/min (>60); Estimated Creatinine Clearance 150.88 ml/min; Globulin 4.1 g/dL (2.2-4.2); Glucose 125 mg/dL (74-106); Potassium 3.7 mmol/L (3.5-5.1); Protein, Total 7.2 g/dL (6.4-8.2); Sodium Level 140 mmol/L (136-145); Thyroid Stim Hormone (TSH) 1.07 uIU/mL (0.358-3.74)
== END 2020-07-20 16:49 | disposition home or self-care (01) ==
PROVIDERS: Emergency Provider Student in an Organized Health Care Education/Training Program; PCP Internal Medicine
DX: R42 Dizziness and giddiness (principal)
CPT/HCPCS: 80053; 84443; 85025; 99283

== ENCOUNTER 2020-10-10 10:00 | Outpatient (RCR) | payer OTHER, SELFPAY | END 2020-10-31 23:59 | LOC: NS 10:00 | PROVIDERS: PCP Internal Medicine; Visit Provider Internal Medicine | DX: Z71.3 Dietary counseling and surveillance (principal); K50.90 Crohn's disease, unspecified, without complications | CPT/HCPCS: 97802 ==

== ENCOUNTER 2020-11-07 09:52 | Outpatient (RCR) | payer OTHER, SELFPAY | END 2020-11-30 23:59 | LOC: NS 09:52 | PROVIDERS: PCP Internal Medicine; Visit Provider Internal Medicine | DX: Z71.3 Dietary counseling and surveillance (principal); K50.00 Crohn's disease of small intestine without complications | CPT/HCPCS: 97803 ==

== ENCOUNTER → 2020-11-07 10:48 | Outpatient (CLI) | payer OTHER, SELFPAY ==
[2020-11-07 11:42] LABS: Hematocrit 40.6 % (37-47); Hemoglobin 13.6 g/dL (12.0-15.0); Mean Corp Hgb Conc 33.5 g/dL (32-36); Mean Corpuscular Hgb 30.6 pg (27.0-32.0); Mean Corpuscular Volume 91.2 fL (81-99); Mean Platelet Vol. 10.1 fl (6.2-12.0); Platelet Count 309 K/mm3 (150-450); RBC Distribution Width CV 11.5 % (11.6-14.6); RBC Distribution Width SD 38.2 fl (35.1-43.9); Red Blood Count 4.45 M/mm3 (4.2-5.4); White Blood Count 8.6 K/mm3 (4.4-11.0)
[2020-11-07 12:18] LABS: ALB/GLOB Ratio 0.8 RATIO (0.9-2.4); AST(SGOT) 18 U/L (15-37); Alanine Aminotransfer ALT/SGPT 31 U/L (13-56); Albumin, Serum 3.3 g/dL (3.2-5.0); Alkaline Phosphatase 76 U/L (45-117); Anion Gap 6 (5-15); BUN 8 mg/dL (7-18); BUN/Creat Ratio 13.9 RATIO (10-20); Chloride 104 mmol/L (98-107); Creatinine, Serum 0.58 mg/dL (0.55-1.02); EST Glomerular Filtration Rate 131 mL/min (>60); Est Glom Filt Rate - Afr Amer 159 mL/min (>60); Globulin 4.4 g/dL (2.2-4.2); Glucose 86 mg/dL (74-106); Potassium 3.6 mmol/L (3.5-5.1); Protein, Total 7.7 g/dL (6.4-8.2); Sodium Level 138 mmol/L (136-145)
[2020-11-07 12:30] LABS: Hepatitis B Surface Antigen Non-Reactive (Nonreactive)
[2020-11-10 03:07] LABS: QNTFERON TB Mitogen Value > 10.00 IU/mL (.); QNTFERON TB Nil Value 0.01 IU/mL (.); QNTFERON TB1+ Ag Value 0.01 IU/mL (.); QNTFERON TB2+ Ag Value 0.02 IU/mL (.)
[2020-11-10 08:42] LABS: Hepatitis B Core AB IgM Negative (Negative); QNTIFERON TB Positive Criteria Negative (Negative)
== END ==
PROVIDERS: PCP Internal Medicine; Referring Provider Internal Medicine; Visit Provider Internal Medicine
DX: K50.00 Crohn's disease of small intestine without complications (principal); R11.0 Nausea; R10.31 Right lower quadrant pain
CPT/HCPCS: 36415; 80053; 85027; 86140; 86480; 86705; 87340

== ENCOUNTER → 2020-11-22 15:31 | Outpatient (CLI) | payer OTHER, SELFPAY ==
[2020-11-27 12:23] LABS: Calprotectin, Stool 253 ug/g (0-120)
== END ==
PROVIDERS: PCP Internal Medicine; Referring Provider Internal Medicine; Visit Provider Internal Medicine
DX: K50.00 Crohn's disease of small intestine without complications (principal); R11.0 Nausea
CPT/HCPCS: 83993; 87493

== ENCOUNTER → 2020-11-29 11:17 | Outpatient (CLI) | payer OTHER, SELFPAY ==
--- NOTE | 2020-11-29 13:00 | MRI_ITS ---
EXAM: MR ABDOMEN AND PELVIS WITHOUT AND WITH INTRAVENOUS CONTRAST : 1990 CLINICAL INDICATION: CROHNS DZ, [place] -- MR ENTEROGRAPHY, Dr. Bonner TECHNIQUE: Multiplanar and multisequence MR images of the abdomen and pelvis without and with intravenous contrast. This report was created using [employer] report generation technology. CONTRAST: IV [id number], 1mg glucagon COMPARISON: None. FINDINGS: LOWER THORAX: Unremarkable. No pleural effusion. ABDOMEN: LIVER: Unremarkable. Normal morphology. No focal mass. GALLBLADDER AND BILE DUCTS: Unremarkable. No gallstones. No gallbladder distention or wall edema. No intra- or extrahepatic biliary ductal dilation. PANCREAS: Unremarkable. No focal cystic or solid mass. SPLEEN: Unremarkable. Normal size without focal cystic or solid mass. ADRENALS: Unremarkable. No nodules. KIDNEYS AND URETERS: Unremarkable. Normal renal size and position. No hydronephrosis. STOMACH AND BOWEL: 10 cm of the terminal ileum is thick walled and enhances with contrast consistent with the history of Crohn's disease. Large bowel and remainder of the small bowel appear normal. PELVIS: APPENDIX: No evidence of acute appendicitis. BLADDER: Unremarkable. REPRODUCTIVE: Unremarkable as visualized. No mass. ABDOMEN and PELVIS: INTRAPERITONEAL SPACE: Unremarkable. No ascites or other fluid collection. VASCULATURE: Unremarkable. Abdominal aorta is non-dilated. LYMPH NODES: No enlarged lymph nodes. MRI/MRI Abd WITH and W/O Contrast IMPRESSION: Terminal ileitis consistent with a history of Crohn's disease. No evidence of complication. at 1051 Reported and signed by: Leonardo Babcock MD Electronically Signed: Leonardo Babcock MD at 10:50 EDT Tel , Service support ,
[2020-11-29] MEDS: Glucagon 1 MG/ML Syringe IM (13:32)
[2020-11-29 14:00] VITALS: BP 157/87; PULSE 101; RESP 16; O2SAT 98; BMI 45.4
== END ==
PROVIDERS: PCP Internal Medicine; Referring Provider Internal Medicine; Visit Provider Internal Medicine
DX: K50.00 Crohn's disease of small intestine without complications (principal); R11.0 Nausea; R10.31 Right lower quadrant pain
CPT/HCPCS: 74183; A9575; A4216; J1610

== ENCOUNTER 2020-12-06 08:29 | Outpatient (RCR) | payer OTHER, SELFPAY ==
[2020-11-29 14:00] VITALS: BMI 45.4
== END 2020-12-31 23:59 ==
LOC: NS 08:29
PROVIDERS: PCP Internal Medicine; Visit Provider Internal Medicine
DX: Z71.3 Dietary counseling and surveillance (principal); K50.90 Crohn's disease, unspecified, without complications
CPT/HCPCS: 97803

== ENCOUNTER 2021-01-09 09:08 | Outpatient (RCR) | payer OTHER, SELFPAY ==
[2020-11-29 14:00] VITALS: BMI 45.4
== END 2021-01-31 23:59 ==
LOC: NS 09:08
PROVIDERS: PCP Internal Medicine; Visit Provider Internal Medicine
DX: Z71.3 Dietary counseling and surveillance (principal); K50.00 Crohn's disease of small intestine without complications; E66.01 Morbid (severe) obesity due to excess calories; Z68.41 Body mass index [BMI] 40.0-44.9, adult
CPT/HCPCS: 97803

== ENCOUNTER 2021-02-13 09:15 | Outpatient (RCR) | payer OTHER, SELFPAY ==
[2021-02-01 00:33] VITALS: BMI 45.4
== END 2021-03-02 23:59 ==
LOC: NS 09:15
PROVIDERS: PCP Internal Medicine; Visit Provider Internal Medicine
DX: Z71.3 Dietary counseling and surveillance (principal); K50.00 Crohn's disease of small intestine without complications
CPT/HCPCS: 97803

== ENCOUNTER 2021-02-22 22:53 | Emergency (ER) | payer OTHER, SELFPAY ==
[2021-02-22 22:53] VITALS: BP 151/100; PULSE 105; RESP 16; TEMP 36.3; O2SAT 100; BMI 44.3
--- NOTE | 2021-02-22 23:30 | RAD_ITS ---
EXAM: XR Left Ankle Complete, 3 or More Views CLINICAL INDICATION: 30 years old, Female; injury TECHNIQUE: Frontal, lateral and oblique views of the left ankle. This report was created using [employer] report generation technology. COMPARISON: None. FINDINGS: Bones/joints: Slightly displaced fracture of the lateral malleolus. Preservation of the joint space. No sclerotic or destructive changes observed. Soft tissues: Extensive edema around the ankle, greatest over the lateral ankle. No radiopaque foreign body. RAD/Ankle min 3 Views IMPRESSION: 1. Slightly displaced fracture of the lateral malleolus. 2. Extensive edema around the ankle, greatest over the lateral ankle. ASSESSMENT: ABNORMAL report - There are abnormal findings in this report which may be related or unrelated to the reason for the exam. Electronically Signed: Niranjan Hewitt MD at 23:52 EDT Tel , Service support ,
--- NOTE | 2021-02-22 23:45 | EDS_ITS ---
HPI History of Present Illness Chief Complaint: Lower Extremity Injury Informant: patient Occured/Mechanism Mechanism/Context: Yes fall Onset/Context/Timing Onset: Today Current Severity: Moderate Maximum Severity: Moderate Narrative Narrative: Patient presents with left ankle injury after a fall. Patient states he was walking on the road when she stepped in a hole and rolled her left ankle causing her to fall. She has not been able to weight-bear on the left ankle since that time. She has abrasions noted to her right leg but otherwise denies any other injury. She did not strike her head. [facility] Medical History Crohn disease Home Medications folic acid 0.8 mg capsule 0.8 mg PO DAILY 05/02/18 [History Last Taken 08/24/19] selenium 200 mcg capsule 200 mcg PO DAILY 05/02/18 [History Last Taken 08/24/19] norgestimate-ethinyl estradiol 1 ea PO DAILY 08/10/19 [History Last Taken 08/24/19] cyanocobalamin (vitamin B-12) 1,000 mcg PO DAILY 08/24/19 [History Last Taken 08/24/19] hydrocodone-acetaminophen 1 tab PO Q6H PRN 3 Days #14 tab 02/23/21 [Rx Last Taken Unknown] Allergy/AdvReac Type Severity Reaction Status Date / Time No Known Allergies Allergy Verified 02/22/21 22:55 Family History Other Diabetes Hypertension Thyroid disorder Surgical History History of cholecystectomy History of tonsillectomy Social History Smoking Status: Never smoker alcohol intake: never ROS ROS ED Constitutional Constitutional ED: Denies chills or fever(s) Eyes Eyes: Denies change in vision ENT ENT ED: Denies sore throat Cardiovascular Cardiovascular: Denies chest pain Respiratory/Chest Respiratory/Chest: Denies cough or dyspnea Gastrointestinal Gastrointestinal: Denies abdominal pain, diarrhea or vomiting Genitourinary Genitourinary ED: Denies dysuria Musculoskeletal Musculoskeletal: Reports arthralgias; Denies back pain Integumentary Reports Abrasions Neurologic Neurologic: Reports paresthesias; Denies headache(s) or weakness Allergic/Immunologic Allergic/Immunologic ED: Denies urticaria EXAM Physical Exam Const Vital Signs: 02/22/21 22:53 Temperature 97.4 F L Temperature Source Temporal Pulse Rate 105 H Respiratory Rate 16 Blood Pressure 151/100 H Blood Pressure Mean 117 Pulse Ox 100 Oxygen Delivery Method Room Air Positive well nourished and well developed General Appearance ED: well developed HEENT Reports normocephalic and head/scalp atraumatic Eyes PERRL and EOMs intact bilaterally Neck supple Chest Wall inspection of chest normal and palpation of chest normal Resp normal respiratory effort and clear to auscultation bilaterally Cardio regular rate and regular rhythm GI normal to inspection, nondistended, normoactive bowel sounds Palpation: soft Extremity Extremity Narrative: Abrasions noted over the right sanchez. No bony tenderness with full range of motion. Tenderness of patient over the lateral malleolus of the left ankle with mild edema. No tenderness over the foot itself. Strong distal pulses. Patient can wiggle toes. No tenderness at the knee or hip on the left. Neuro oriented x3 Sensorium / Orientation: alert Psych mental status grossly normal MDM MDM MDM Narrative Medical decision making narrative: Patient was given 2 tabs of Wadley for pain. Left ankle x-rays are obtained. Radiography Diagnostic Testing: Radiology Impression Ankle X-Ray 02/22/21 23:30 IMPRESSION: 1. Slightly displaced fracture of the lateral malleolus. 2. Extensive edema around the ankle, greatest over the lateral ankle. ASSESSMENT: ABNORMAL report - There are abnormal findings in this report which may be related or unrelated to the reason for the exam. Electronically Signed: Niranjan Hewitt MD at 23:52 EDT Tel , Service support , Treatment and Re-Evaluation Comments:: Left ankle x-ray reveals a Ferraro A distal fibula fracture. Radiologist interpretation is also reviewed. Test results discussed with the patient. She be placed in a walking boot and given crutches. She may weight- bear as tolerated. She will be given work restrictions. Discharge Plan Triage Chief Complaint: Lower Extremity Injury ED Provider: Greta Leahy Dx/Rx/DC Orders Clinical Impression: Ankle fracture, left Instructions: ED Ankle Fracture, Distal Fibula Prescriptions: New hydrocodone-acetaminophen 5-325 mg tablet 1 tab PO Q6H PRN (Reason: pain) 3 Days Qty: 14 RF: 0 No Action selenium 200 mcg capsule 200 mcg capsule 200 mcg PO DAILY RF: 0 folic acid 0.8 mg capsule 0.8 mg PO DAILY RF: 0 norgestimate-ethinyl estradiol 1 EACH tablet 1 ea PO DAILY RF: 0 cyanocobalamin (vitamin B-12) 500 MCG tablet 1,000 mcg PO DAILY RF: 0 Stand Alone Forms: Work Status Form Primary Care Provider: May Alicia Referrals: May Alicia DO [Primary Care Provider] - Devang Reyna MD [STAFF PHYSICIAN] - 5-7 Days Disposition Disposition: Home, Self Care
[2021-02-22] MEDS: HYDROcodone Bitartrate/Apap 5/325 Tablet PO (23:48)
[2021-02-23 01:15] VITALS: BP 142/77; PULSE 84; RESP 16; O2SAT 97
== END 2021-02-23 01:16 | disposition home or self-care (01) ==
LOC: ED 02-23 00:24
PROVIDERS: Emergency Provider Emergency Medicine; PCP Internal Medicine
DX: S82.62XA Displaced fracture of lateral malleolus of left fibula, initial encounter for closed fracture (principal); W01.0XXA Fall on same level from slipping, tripping and stumbling without subsequent striking against object, initial encounter; Y93.01 Activity, walking, marching and hiking; Y92.410 Unspecified street and highway as the place of occurrence of the external cause; Y99.8 Other external cause status
CPT/HCPCS: 73610; 99284

== ENCOUNTER → 2021-04-19 08:20 | Outpatient (CLI) | payer OTHER, SELFPAY ==
[2021-04-21 08:22] VITALS: BP 151/86; PULSE 106; RESP 18; TEMP 35.9; O2SAT 99
[2021-04-21] MEDS: 0.9% NaCl IVPB Med Flush (250 mL) 15 ML IV (08:30)
[2021-04-21] MEDS: 0.9% NaCl Peripheral Flush Adult/Peds IV (08:30)
[2021-04-21 10:23] VITALS: BP 125/80; PULSE 98; O2SAT 100
== END ==
PROVIDERS: PCP Internal Medicine; Referring Provider Internal Medicine; Visit Provider Internal Medicine
DX: K50.00 Crohn's disease of small intestine without complications (principal)
CPT/HCPCS: 96365; J7050; A4216; J3358

== ENCOUNTER → 2021-12-22 | Outpatient (CLI) | payer OTHER, SELFPAY ==
[2021-12-22 11:33] LABS: Absolute Lymphocyte Count 2.51 X10^3/uL (0.83-4.51); Absolute Neutrophil Count 6.6 X10^3/uL (2.0-7.7); Basophil# 0.05 X10^3/uL; Basophil% 0.5 % (0-1); Eosinophil# 0.16 X10^3/uL; Eosinophils% 1.6 % (0-5); Erythrocyte Sedimentation Rate 21 mm/hr (0-30); Hematocrit 41.9 % (37-47); Hemoglobin 13.5 g/dL (12.0-15.0); Lymphocyte # 2.51 X10^3/ul (0.83-4.51); Lymphocyte % 25.4 % (19-41); Mean Corp Hgb Conc 32.2 g/dL (32-36); Mean Corpuscular Hgb 29.2 pg (27.0-32.0); Mean Corpuscular Volume 90.5 fL (81-99); Mean Platelet Vol. 9.4 fl (6.2-12.0); Monocyte# 0.52 X10^3/uL; Monocyte% 5.3 % (0-10); NRBC Flagged by Analyzer 0 % (0-5); Neutrophil % 66.6 % (47-70); Platelet Count 397 K/mm3 (150-450); RBC Distribution Width CV 11.9 % (11.6-14.6); RBC Distribution Width SD 39.3 fl (35.1-43.9); Red Blood Count 4.63 M/mm3 (4.2-5.4); White Blood Count 9.9 K/mm3 (4.4-11.0)
[2021-12-22 12:15] LABS: ALB/GLOB Ratio 0.7 RATIO (0.9-2.4); AST(SGOT) 13 U/L (15-37); Alanine Aminotransfer ALT/SGPT 17 U/L (13-56); Albumin, Serum 3.3 g/dL (3.2-5.0); Alkaline Phosphatase 86 U/L (45-117); Anion Gap 7 (5-15); BUN 8 mg/dL (7-18); BUN/Creat Ratio 11.9 RATIO (10-20); Calcium,Total 9.1 mg/dL (8.5-10.1); Chloride 103 mmol/L (98-107); Creatinine, Serum 0.67 mg/dL (0.55-1.02); EST Glomerular Filtration Rate 110 mL/min (>60); Est Glom Filt Rate - Afr Amer 133 mL/min (>60); Globulin 4.6 g/dL (2.2-4.2); Glucose 91 mg/dL (74-106); LDH 166 U/L (84-246); Potassium 4.4 mmol/L (3.5-5.1); Protein, Total 7.9 g/dL (6.4-8.2); Sodium Level 136 mmol/L (136-145)
[2021-12-23 17:07] LABS: Anti-Centromere B Ab <0.2 AI (0.0-0.9); Anti-Chromatin <0.2 AI (0.0-0.9); Anti-Jo <0.2 AI (0.0-0.9); Anti-Scleroderma-70 AB <0.2 AI (0.0-0.9); RNP Ab <0.2 AI (0.0-0.9); SJOGREN'S Anti-SS-A test < 0.2 AI (0.0-0.9); SJOGREN'S Anti-SS-B test < 0.2 AI (0.0-0.9); Smith Ab <0.2 AI (0.0-0.9)
[2021-12-24 08:27] LABS: Anti-dsDNA Ab 1 IU/mL (0-9)
[2021-12-25 16:09] LABS: Endomysial Antibody IgA Negative (Negative)
[2021-12-25 16:25] LABS: Immunoglobulin A 303 mg/dL (87-352); t-Transglutaminase IgA <2 U/mL (0-3)
[2021-12-27 19:06] LABS: Albumin 3.3 g/dL (2.9-4.4); Alpha-1-Globulins 0.3 g/dL (0.0-0.4); Cytoplasmic Ab (C-ANCA) <1:20 titer (Neg:<1:20); Gamma Globulin 1.4 g/dL (0.4-1.8); Immunoglobulin A 289 mg/dL (87-352); Immunoglobulin E 57 IU/mL (6-495); Immunoglobulin G 1481 mg/dL (586-1602); Immunoglobulin M 85 mg/dL (26-217); PROEL- TOTAL PROTEIN 7.3 g/dL (6.0-8.5)
[2021-12-27 20:01] LABS: Perinuclear Ab (P-ANCA) <1:20 titer (Neg:<1:20)
== END | disposition home or self-care (01) ==
LOC: LAB 11:03
PROVIDERS: PCP Internal Medicine; Referring Provider Nurse Practitioner Adult Health; Visit Provider Nurse Practitioner Adult Health
DX: K50.90 Crohn's disease, unspecified, without complications (principal)
CPT/HCPCS: 36415; 80053; 82784; 82785; 83516; 83615; 84165; 85025; 85652; 86140; 86225; 86235; 86255; 86256; 86334

== ENCOUNTER → 2021-12-26 | Outpatient (CLI) | payer OTHER, SELFPAY ==
[2022-01-01 10:43] LABS: Calprotectin, Stool 530 ug/g (0-120)
== END | disposition home or self-care (01) ==
LOC: LAB 14:30
PROVIDERS: PCP Internal Medicine; Referring Provider Nurse Practitioner Adult Health; Visit Provider Nurse Practitioner Adult Health
DX: K58.9 Irritable bowel syndrome, unspecified (principal); K50.90 Crohn's disease, unspecified, without complications; K52.9 Noninfective gastroenteritis and colitis, unspecified
CPT/HCPCS: 83630; 83993; 87177; 87209; 87493; 87506

== ENCOUNTER 2022-03-12 09:19 | Day surgery (SDC) | payer OTHER, SELFPAY ==
[2022-03-12] VITALS (7 sets, daily range): BP systolic 119–157; BP diastolic 83–97; PULSE 78–98; RESP 14–16; TEMP 36.4–37.2; O2SAT 100; BMI 45.9
--- NOTE | 2022-03-12 | GASB_PTH ---
PATIENT: WADE ESPARZA LOC: EN U#:[id number] AGE/SX: 31/F ROOM: RE03/12/[address]: Dr. Valentin Whitmore DO : 1990 BED: DIS: 03/12/2022 SPEC #: [id number] RECD: 03/12/22 13:38 STATUS: DANIAL REGio #: [id number] DWIGHT: 03/12/22 00:[address]: Valentin Whitmore DEPT: SURGICAL PATHOLOGY RECD BY: Prudencio Frank ENTERED: 03/13/22 10:20 SP TYPE: Gastric Bx JANIS DR: Dr. May Alicia DO Tissues: A - Pylorus B - Duodenum, NOS C - Ileum, NOS Procedures: Surgery Specimen Level IV HEADER OPERATION: Colonoscopy, [place] [place] PRE-OP DIAGNOSIS: Crohn?s disease TISSUE SUBMITTED: A ? Pylorus biopsy, B ? Duodenum biopsy, C ? Terminal ileum biopsy MICROSCOPIC DIAGNOSIS A. Pylorus, biopsy: Moderate chronic active gastritis. See comment. B. Duodenum, biopsy: Fragments of duodenal mucosa with nonspecific chronic inflammation. See comment. C. Terminal ileum, biopsy: Moderate chronic active inflammation. See microscopic description and comment. SJ:rg 03/14/2022 COMMENT A. The results of immunohistochemistry for Helicobacter pylori will be reported separately ([id number]). B. Focal mild villous blunting is also noted. C. The findings are consistent with inflammatory bowel disease. Correlation with clinical, endoscopic findings and appropriate follow up are necessary. MICROSCOPIC DESCRIPTION Slides are reviewed. C. The specimen shows fragments of small intestinal mucosa with focal ulceration, acute and chronic inflammatory cell infiltrates in the lamina propria, glandular distortion and cryptitis. Granulomas are not seen. No evidence of dysplasia. GROSS DESCRIPTION A - Received in fixative is one container labeled with the patient's name and designated pylorus biopsy. The specimen consists of one irregular fragment of light alexis soft tissue that measures 0.6 x 0.3 x 0.1 cm. The specimen is totally submitted in one cassette. B - Received in fixative is one container labeled with the patient's name and designated duodenum biopsy. The specimen consists of two irregular fragments of light alexis soft tissue that in aggregate measure 0.6 x 0.4 x 0.1 cm. The specimen is totally submitted in one cassette. C - Received in fixative is one container labeled with the patient's name and designated terminal ileum biopsy. The specimen consists of multiple irregular fragments of light alexis soft tissue that in aggregate measure 2 x 0.5 x 0.1 cm. The specimen is totally submitted in one cassette. / SJ:rg TC:2 CPT: 59802 x3
[2022-03-12] MEDS: Lactated Ringers 1,000 ML 15 ML IV (10:00)
--- NOTE | 2022-03-12 10:30 | IMM_PTH ---
PATIENT: WADE ESPARZA LOC: EN U#:[id number] AGE/SX: 31/F ROOM: RE03/12/[address]: Dr. Valentin Whitmore DO : 1990 BED: DIS: 03/12/2022 SPEC #: [id number] RECD: 03/13/22 10:29 STATUS: DANIAL REQ #: [id number] DWIGHT: 03/12/22 10:[address]: Valentin Whitmore DEPT: IMMUNOHISTOCHEMISTRY RECD BY: Sandra Earl ENTERED: 03/13/22 10:29 SP TYPE: IMMUNO OTHR DR: Dr. May Alicia DO Tissues: A - Pyloric antrum Procedures: H Pylori (initial) PHYSICIAN & INSTITUTION [place] [id number] SPECIMEN INFORMATION: Tissue Source: A - Pylorus Clinical Info: Crohn?s disease Specimen Number: [id number] CPT code: 72616 METHODOLOGY: Deparaffinized sections of prefer/formalin-fixed tissue or PAP/DQ stained slides are incubated with monoclonal/polyclonal antibodies/oligonucleotide probes. Localization is made via biotin free immunoperoxidase method. Appropriate controls are performed and reacted as expected. Results on target cell population are indicated in the following table: RESULTS: ANTIBODY / CLONE RESULT Block A H Pylori (polyclonal) negative These tests were developed and their performance characteristics determined by [facility]. They may not have been cleared or approved by the U.S. Food and Drug Administration. The FDA has determined that such clearance or approval is not necessary. The above immunohistochemical/dualISH markers are ordered and reviewed by the Pathologist. INTERPRETATION: Cris Pylorus, biopsy: Negative for Helicobacter pylori organisms. VERENICE:scott 03/15/2022
--- NOTE | 2022-03-12 10:53 | HP.PCM_ITS ---
History and Physical Date of Admission: 03/12/22 WADE ESPARZA, is a 31 F who presents to the office today for 6 wk f/u Crohn's disease. Her symptoms were not at all controlled on Stelara q8wks dosing, so we increased to q4wks. She has had 2 doses since then, most recent dose today. Symptoms were severe diarrhea, blood per rectum, abdominal pain, nausea. She is doing better on meds we prescribed at her initial visit. Colestipol helps, takes 2 grams qpm, has diarrhea if she misses it. Less urgency with lomotil, taking BID. Abdominal pain is better in that it isn't constant, but can have severe twinges, starts RLQ then LLQ, taking dicyclomine 20 mg BID. Random nausea. Prescribed pantoprazole 40 mg qam for acid reflux and nausea. Less blood per rectum. No fecal incontinence since adding meds. 12/2021 workup: Positive fecal lactoferrin, stool calprotectin 520, neg O&P, neg C diff, neg enteric pathogens CRP 20, remainder of extensive biochemical w/u is unremarkable Her labs showed a low level of Stelara while taking it q8wks; there were no antibodies to Stelara 03/12/22 endoscopy Symptoms began in high school in 2009, started with bright red blood per rectum. She was first treated with budesonide and azathioprine; she reports they weren't effective. Then in 2014 she had cholecystectomy; that surgeon told her she didn't have Crohn's so she stopped treatment. She felt ok for awhile but then in 2018 she started having more issues--severe diarrhea all the time. So she went to a GI doctor in [place] in 2019; he put her on Humira, she was always on it weekly, it helped but her symptoms never resolved, then it stopped working at all after about a year. She started Stelara in 04/2021. She had the induction dose here at [facility], then gives herself the q8wks SQ injection. She has a couple of weeks after injection when she feels better--stool isn't liquid, there is some form to it, but then regresses to the point when stool is liquid. She has had to leave work because of fecal incontinence. BMs are urgent. No relief with imodium. Has instant need for urgent BM if she bends over and presses on RUQ. Her last GI told her she has a narrowing in the right side. Last colonoscopy was 12/2020. She has been treated with prednisone, twice since 2019. Had ankle fracture last yr that was attributed to steroid use. She thinks there are family members with IBS but they don't seek medical care. Comorbidities include malabsorption, vitamin deficiencies, hyperlipidemia Past surgical history includes adenoidectomy, cholecystectomy, tonsillectomy ROS Const Constitutional: Positive for fatigue and headache(s) ENT ENT: Positive for headache(s); No difficulty swallowing Gastro GI: Positive for abdominal pain, bloating, diarrhea, excessive flatus and nausea/dyspepsia; No belching, change in bowel habits, change in stool character, coffee ground emesis, constipation, cramping, heartburn, difficulty swallowing, feeling full early, incontinent of stools, Vomiting blood/hematemesis, Blood in stool, loose stools, Black,tarry stools, pain with swallowing, vomiting or other Musc Musculoskeletal: Positive for joint pain, joint swelling, muscle cramps, muscle weakness, numbness, stiffness and tingling Skin Skin: No yellowing of the eye or itchy eyes Neuro Neurology: Positive for headache(s), numbness and tingling Psych Psychiatric: Positive for anxiety and Positive for depression Endo Endocrine: Positive for fatigue Aller/Imm Allergy/Immunologic: No itchy eyes Luis/Lymp Hematologic/Lymphatic: No easy bleeding or easy bruising Exam Const General: cooperative, comfortable and no acute distress Nutritional Appearance: obese Orientation: alert, awake and oriented x3 Quality Reporting Tobacco Screening ([facility] 138) Smoking Status: Never smoker Assessment and Plan Assessment and Plan (1) Crohn's disease: ?Status:?Chronic ?Plan: Continue Stelara q4wks Continue lomotil bid if needed, colestipol 2 g qpm, dicyclomine 20 mg bid and pantoprazole She is scheduled for endoscopy in early March with 2 wk f/u ? ? ? Medications: Refilled colestipol 2 grams (2 x 1 gram) PO QHS 180 tabs 1RF diarrhea ? ? dicyclomine 20 mg? 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 ? diphenoxylate-atropine 2.5-0.025 mg (Lomotil) ?? take 1 tab in the morning and 1 tab in the afternoon 1 TAB? PO BID 180 tabs 0RF diarrhea ? ? I have re-examined the patient. There are no clinical changes since date of exam.
[2022-03-12 11:04] LABS: Internal QC Validated? YES +Cl - CLEAR BKGD; Pregnancy, Serum, hCG Quali. NEGATIVE Negative
--- NOTE | 2022-03-12 11:40 | OP.EGD_ITS ---
Patient Name: Diane Deshpande Procedure Date: 03/12/2022 10:50 AM Date of : 1990 Age: 31 Procedure: Upper GI endoscopy Indications: Epigastric abdominal pain, Iron deficiency anemia Providers: Valentin Whitmore DO Referring MD: May Alicia Medicines: Monitored Anesthesia Care Patient Profile: This is a 31 year old female. Refer to note in patient chart for documentation of history and physical. Patient has symptoms of chronic abdominal cramping, chronic abdominal distention and chronic epigastric abdominal pain. Complications: No immediate complications. Procedure: Pre-Anesthesia Assessment: - Prior to the procedure, a History and Physical was performed, and patient medications and allergies were reviewed. The risks and benefits of the procedure and the sedation options and risks were discussed with the patient. All questions were answered and informed consent was obtained. Patient identification and proposed procedure were verified by the physician in the pre-procedure area. Mental Status Examination: alert and oriented. Airway Examination: normal oropharyngeal airway and neck mobility. Respiratory Examination: clear to auscultation. CV Examination: normal. Prophylactic Antibiotics: The patient does not require prophylactic antibiotics. Prior Anticoagulants: The patient has taken no previous anticoagulant or antiplatelet agents. ASA Grade Assessment: II - A patient with mild systemic disease. After reviewing the risks and benefits, the patient was deemed in satisfactory condition to undergo the procedure. The anesthesia plan was to use monitored anesthesia care (MAC). Immediately prior to administration of medications, the patient was re-assessed for adequacy to receive sedatives. The heart rate, respiratory rate, oxygen saturations, blood pressure, adequacy of pulmonary ventilation, and response to care were monitored throughout the procedure. The physical status of the patient was re-assessed after the procedure. After obtaining informed consent, the endoscope was passed under direct vision. Throughout the procedure, the patient's blood pressure, pulse, and oxygen saturations were monitored continuously. The colonoscope was introduced through the mouth, and advanced to the second part of duodenum. The upper GI endoscopy was accomplished without difficulty. The patient tolerated the procedure well. Scope In: 11:08:58 AM Scope Out: 11:13:28 AM Total Procedure Duration Time 0 hours 4 minutes 30 seconds Findings: The examined esophagus was normal. A small hiatal hernia was present. Patchy mildly erythematous mucosa without bleeding was found in the gastric antrum. Biopsies were taken with a cold forceps for histology. Verification of patient identification for the specimen was done. Estimated blood loss was minimal. The pyloric sphincter was also seen to be patulous and incompetent. Two non-bleeding superficial duodenal ulcers with no stigmata of bleeding were found in the duodenal bulb. The largest lesion was 6 mm in largest dimension. Biopsies were taken with a cold forceps for histology. Verification of patient identification for the specimen was done. Estimated blood loss was minimal. Impression: - Normal esophagus. - Small hiatal hernia. - Erythematous mucosa in the antrum. Biopsied. - Multiple non-bleeding duodenal ulcers with no stigmata of bleeding. Biopsied. Recommendation: - Discharge patient to home. - Resume previous diet. - Continue present medications. - Await pathology results. - Repeat upper endoscopy to check healing. - Return to GI office. Procedure Code(s): --- Professional --- 32285, Esophagogastroduodenoscopy, flexible, transoral; with biopsy, single or multiple CPT copyright 2017 [employer]. All rights reserved. The codes documented in this report are preliminary and upon marketing project lead review may be revised to meet current compliance requirements. Valentin Whitmore DO 03/12/2022 11:40:04 AM This report has been signed electronically. Number of Addenda: 0 Note Initiated On: 03/12/2022 10:50 AM
--- NOTE | 2022-03-12 11:41 | OP.CCLET_ITS ---
03/12/2022 May Alicia [address] [place] [address] Re : Upper GI endoscopy procedure for Diane Deshpande Dear Dr. Alicia This procedure was performed on Saturday, March 12, 2022. My impressions and recommendations are as follows: Impressions : - Normal esophagus. - Small hiatal hernia. - Erythematous mucosa in the antrum. Biopsied. - Multiple non-bleeding duodenal ulcers with no stigmata of bleeding. Biopsied. Recommendations : - Discharge patient to home. - Resume previous diet. - Continue present medications. - Await pathology results. - Repeat upper endoscopy to check healing. - Return to GI office. My findings are described in the full procedure note, which is enclosed. If I can be of further assistance, please feel free to contact me at . Sincerely, Valentin Whitmore, 03/12/2022 11:40:04 AM This report has been signed electronically.
--- NOTE | 2022-03-12 11:46 | OP.COLON_ITS ---
Patient Name: Diane Deshpande Procedure Date: 03/12/2022 11:13 AM Date of : 1990 Age: 31 Procedure: Colonoscopy Indications: Crohn's disease of the small bowel Providers: Valentin Whitmore DO Referring MD: May Alicia Medicines: Monitored Anesthesia Care Patient Profile: This is a 31 year old female. Refer to note in patient chart for documentation of history and physical. Patient has symptoms of chronic abdominal cramping, chronic abdominal distention and chronic epigastric abdominal pain. This patient has ileal Crohn's disease without perianal involvement is taking Stelara. Last Colonoscopy: within the past 3 years. Complications: No immediate complications. Procedure: Pre-Anesthesia Assessment: - Prior to the procedure, a History and Physical was performed, and patient medications and allergies were reviewed. The risks and benefits of the procedure and the sedation options and risks were discussed with the patient. All questions were answered and informed consent was obtained. Patient identification and proposed procedure were verified by the physician in the pre-procedure area. Mental Status Examination: alert and oriented. Airway Examination: normal oropharyngeal airway and neck mobility. Respiratory Examination: clear to auscultation. CV Examination: normal. Prophylactic Antibiotics: The patient does not require prophylactic antibiotics. Prior Anticoagulants: The patient has taken no previous anticoagulant or antiplatelet agents. ASA Grade Assessment: II - A patient with mild systemic disease. After reviewing the risks and benefits, the patient was deemed in satisfactory condition to undergo the procedure. The anesthesia plan was to use monitored anesthesia care (MAC). Immediately prior to administration of medications, the patient was re-assessed for adequacy to receive sedatives. The heart rate, respiratory rate, oxygen saturations, blood pressure, adequacy of pulmonary ventilation, and response to care were monitored throughout the procedure. The physical status of the patient was re-assessed after the procedure. After I obtained informed consent, the scope was passed under direct vision. Throughout the procedure, the patient's blood pressure, pulse, and oxygen saturations were monitored continuously. The colonoscope was introduced through the anus and advanced to the terminal ileum. The colonoscopy was performed without difficulty. The patient tolerated the procedure well. The quality of the bowel preparation was good. Scope In: 11:16:59 AM Scope Withdrawal Time 0 hours 11 minutes 34 seconds Scope Out: 11:32:29 AM Total Procedure Duration Time 0 hours 15 minutes 30 seconds Findings: The perianal and digital rectal examinations were normal. The colon (entire examined portion) appeared normal. No additional abnormalities were found on retroflexion. Diffuse inflammation, moderate in severity and characterized by granularity, scarring and aphthous ulcerations was found in the distal ileum and in the terminal ileum. Biopsies were taken with a cold forceps for histology. Verification of patient identification for the specimen was done. Estimated blood loss was minimal. Impression: - The entire examined colon is normal. - Crohn's disease. Biopsied. Recommendation: - Discharge patient to home. - Resume previous diet. - Continue present medications. - Await pathology results. - Repeat colonoscopy in 1 year for screening purposes. Procedure Code(s): --- Professional --- 45831, Colonoscopy, flexible; with biopsy, single or multiple CPT copyright 2017 [employer]. All rights reserved. The codes documented in this report are preliminary and upon remote medical coder review may be revised to meet current compliance requirements. Valentin Whitmore DO 03/12/2022 11:46:40 AM This report has been signed electronically. Number of Addenda: 0 Note Initiated On: 03/12/2022 11:13 AM
--- NOTE | 2022-03-12 11:48 | OP.CCLET_ITS ---
03/12/2022 May Alicia [address] [place] [address] Re : Colonoscopy procedure for Diane Deshpande Dear Dr. Alicia This procedure was performed on Saturday, March 12, 2022. My impressions and recommendations are as follows: Impressions : - The entire examined colon is normal. - Crohn's disease. Biopsied. Recommendations : - Discharge patient to home. - Resume previous diet. - Continue present medications. - Await pathology results. - Repeat colonoscopy in 1 year for screening purposes. My findings are described in the full procedure note, which is enclosed. If I can be of further assistance, please feel free to contact me at . Sincerely, Valentin Whitmore, 03/12/2022 11:46:40 AM This report has been signed electronically.
== END 2022-03-12 12:46 | disposition home or self-care (01) ==
LOC: EN 09:20 → AC 09:21
PROVIDERS: Anesthesiology; PCP Internal Medicine; Referring Provider Internal Medicine; Visit Provider Internal Medicine Gastroenterology
PROC: 0DJD8ZZ Inspection of Lower Intestinal Tract, Via Natural or Artificial Opening Endoscopic (ICD-10-PCS; CPT 45378; principal; 2022-03-12 10:25)
DX: K50.00 Crohn's disease of small intestine without complications (principal); K29.50 Unspecified chronic gastritis without bleeding; K44.9 Diaphragmatic hernia without obstruction or gangrene; K26.9 Duodenal ulcer, unspecified as acute or chronic, without hemorrhage or perforation; K90.9 Intestinal malabsorption, unspecified; D50.9 Iron deficiency anemia, unspecified; E78.00 Pure hypercholesterolemia, unspecified; Z90.49 Acquired absence of other specified parts of digestive tract; Z79.899 Other long term (current) drug therapy
CPT/HCPCS: 45380; 43239; 84703; 88305; 88342; J7120; J2405

== ENCOUNTER → 2022-03-21 | Outpatient (CLI) | payer OTHER, SELFPAY ==
[2022-03-23 13:07] LABS: PROEL- Albumin 3.5 g/dL (2.9-4.4); PROEL- Alpha-1 Globulin 0.3 g/dL (0.0-0.4); PROEL- Alpha-2 Globulin 0.8 g/dL (0.4-1.0); PROEL- Beta Globulin 1.2 g/dL (0.7-1.3); PROEL- Gamma Globulin 1.2 g/dL (0.4-1.8); PROEL- Globulin, Total 3.6 g/dL (2.2-3.9); PROEL- TOTAL PROTEIN 7.1 g/dL (6.0-8.5); PROELU- Albumin, Urine 11.8 % (.); PROELU- Alpha-1-Globulin,Ur 7.7 % (.); PROELU- Alpha-2-Globulin,Ur 19.5 % (.); PROELU- Beta Globulin, Ur 26.1 % (.); PROELU- Gamma Globulin, Ur 34.9 % (.); Total Protein, Ur 6.5 mg/dL (Not Estab.)
== END | disposition home or self-care (01) ==
LOC: LAB 11:48
PROVIDERS: PCP Internal Medicine; Visit Provider Internal Medicine
DX: R77.1 Abnormality of globulin (principal)
CPT/HCPCS: 36415; 84165; 84166

== ENCOUNTER → 2022-03-26 | Outpatient (CLI) | payer OTHER, SELFPAY ==
[2022-03-27 15:08] LABS: Endomysial Antibody IgA Negative (Negative)
[2022-03-28 11:48] LABS: Immunoglobulin A 263 mg/dL (87-352); t-Transglutaminase IgA <2 U/mL (0-3)
== END | disposition home or self-care (01) ==
PROVIDERS: PCP Internal Medicine; Referring Provider Nurse Practitioner Adult Health; Visit Provider Nurse Practitioner Adult Health
DX: K50.90 Crohn's disease, unspecified, without complications (principal)
CPT/HCPCS: 36415; 82784; 83516; 86140; 86255

== ENCOUNTER → 2022-05-01 | Outpatient (CLI) | payer OTHER, SELFPAY ==
--- NOTE | 2022-05-01 16:11 | RAD_ITS ---
STUDY: X-RAY - LEFT SHOULDER REASON FOR EXAM: Female, 31 years old. injury TECHNIQUE: 4 view(s) of the shoulder. COMPARISON: None. FINDINGS: Normal glenohumeral articulation. Normal acromioclavicular joint. Normal acromion. Normal humeral head and visualized proximal humerus. The soft tissue structures are unremarkable. Normal visualized pulmonary apex. RAD/Shoulder min 2 Views IMPRESSION: Normal x-ray examination of the shoulder. Electronically Signed: Ravi Gary MD at 16:51 EST ,
== END | disposition home or self-care (01) ==
PROVIDERS: PCP Internal Medicine; Referring Provider Physician Assistant; Visit Provider Physician Assistant
DX: S49.92XA Unspecified injury of left shoulder and upper arm, initial encounter (principal)
CPT/HCPCS: 73030

== ENCOUNTER → 2022-05-03 | Outpatient (CLI) | payer OTHER, SELFPAY ==
--- NOTE | 2022-05-03 15:28 | CT_ITS ---
INDICATION: Crohn''s disease EXAMINATION: CT ABDOMEN AND PELVIS WITH CONTRAST - CT Abdomen And Pelvis W/ Contrast Injection TECHNIQUE: Helically acquired images were obtained of the abdomen and pelvis following IV contrast. A radiation dose optimization technique was used for this scan. IV Contrast dosage and agent: 100 cc Isovue-300 Oral contrast: None. COMPARISON: 07/28/2014 FINDINGS: LOWER CHEST: Lung bases are clear. No cardiomegaly or pericardial effusion. LIVER: Homogenous enlargement to 25 cm. No concerning focal mass. GALLBLADDER AND BILIARY TREE: Gallbladder absent. No intra- or extrahepatic biliary ductal dilation. PANCREAS: No focal cystic or solid mass. SPLEEN: Normal size without focal cystic or solid mass. ADRENAL GLANDS: No nodules. KIDNEYS AND URETERS: Normal renal size and position. No hydronephrosis. PERITONEUM: No ascites or free air. BOWEL: Normal appendix. No stomach or bowel distension. Normal terminal ileum. No focal inflammatory bowel changes. LYMPH NODES: No enlarged mesenteric or retroperitoneal lymph nodes. VESSELS: Aorta is non-dilated. URINARY BLADDER: Unremarkable. REPRODUCTIVE ORGANS: No pelvic masses. ABDOMINAL WALL: No discrete abdominal or pelvic wall hernia. BONES: No acute or aggressive bony abnormality. CT/Abdomen/Pelvis WITH Contrast IMPRESSION: No acute findings in the abdomen or pelvis. Electronically Signed: Delroy Cruz MD at 21:37 EST ,
[2022-05-07 21:07] LABS: Beef <0.10 kU/L (Class 0); Clam <0.10 kU/L (Class 0); Codfish <0.10 kU/L (Class 0); Corn <0.10 kU/L (Class 0); Egg, White <0.10 kU/L (Class 0); Egg, Whole <0.10 kU/L (Class 0); Milk (Cow) <0.10 kU/L (Class 0); Peanut <0.10 kU/L (Class 0); Pork <0.10 kU/L (Class 0); SCALLOP <0.10 kU/L (Class 0); SESAME SEED <0.10 kU/L (Class 0); Shrimp 0.37 kU/L (Class I); Soybean <0.10 kU/L (Class 0); Walnut, (Food) <0.10 kU/L (Class 0); Wheat <0.10 kU/L (Class 0)
[2022-05-08 11:11] LABS: Anti-Mitochondrial AB <20.0 Units (0.0-20.0); Chocolate <0.10 kU/L (Class 0)
[2022-05-09 13:28] LABS: Anti-Smooth Muscle ABS 8 Units (0-19); CMV Acute Antibody IgM < 30.0 AU/mL (0.0-29.9); CMV Antibody IgG > 10.00 U/mL (0.00-0.59); CMV by PCR Negative (Negative)
== END | disposition home or self-care (01) ==
PROVIDERS: PCP Internal Medicine; Referring Provider Nurse Practitioner Adult Health; Visit Provider Nurse Practitioner Adult Health
DX: K50.90 Crohn's disease, unspecified, without complications (principal)
CPT/HCPCS: 36415; 74177; 83516; 86003; 86005; 86644; 86645; 87496; A4216

== ENCOUNTER → 2022-05-14 | Outpatient (CLI) | payer OTHER, SELFPAY ==
--- NOTE | 2022-05-14 16:50 | RAD_ITS ---
STUDY: X-RAY - ABDOMEN/PELVIS REASON FOR EXAM: Female, 31 years old. Patency Capsule TECHNIQUE: Single AP view of the abdomen / pelvis. COMPARISON: None. FINDINGS: Normal visualized lung bases. There is a moderate amount of colonic fecal material. No radiopaque capsule is seen. The visualized liver, spleen and kidneys are grossly normal in size and morphology. Normal soft tissue structures. Normal visualized osseous structures. RAD/Abdomen Single View IMPRESSION: Moderate amount of fecal material is seen in the colon. Electronically Signed: Niraj Liriano MD at 11:10 EST ,
== END | disposition home or self-care (01) ==
LOC: RAD 16:46
PROVIDERS: PCP Internal Medicine; Referring Provider Nurse Practitioner Adult Health; Visit Provider Nurse Practitioner Adult Health
DX: K50.90 Crohn's disease, unspecified, without complications (principal)
CPT/HCPCS: 74018

== ENCOUNTER → 2022-05-30 | Outpatient (CLI) | payer OTHER, SELFPAY ==
[2022-06-06 19:27] LABS: HPV APTIMA, High Risk Negative (Negative)
== END | disposition home or self-care (01) ==
LOC: LABSPEC 09:12
PROVIDERS: PCP Internal Medicine; Visit Provider Obstetrics & Gynecology
DX: Z12.4 Encounter for screening for malignant neoplasm of cervix (principal)
CPT/HCPCS: 87624; 88175; G0145

== ENCOUNTER → 2022-06-08 | Outpatient (CLI) | payer OTHER, SELFPAY ==
[2022-06-08 17:35] LABS: Erythrocyte Sedimentation Rate 29 mm/hr (0-30)
== END | disposition home or self-care (01) ==
LOC: LABSPEC 17:12
PROVIDERS: PCP Internal Medicine; Visit Provider Nurse Practitioner Adult Health
DX: K50.90 Crohn's disease, unspecified, without complications (principal)
CPT/HCPCS: 36415; 85652; 86140

== ENCOUNTER → 2022-06-24 | Outpatient (CLI) | payer OTHER, SELFPAY ==
[2022-06-28 18:52] LABS: Calprotectin, Stool 238 ug/g (0-120)
== END | disposition home or self-care (01) ==
LOC: LABSPEC 10:44
PROVIDERS: PCP Internal Medicine; Visit Provider Nurse Practitioner Adult Health
DX: K50.90 Crohn's disease, unspecified, without complications (principal)
CPT/HCPCS: 83630; 83993

== ENCOUNTER → 2022-11-07 | Outpatient (CLI) | payer OTHER, SELFPAY ==
[2022-11-07 16:46] LABS: Absolute Lymphocyte Count 4.16 X10^3/uL (0.83-4.51); Absolute Neutrophil Count 8.6 X10^3/uL (2.0-7.7); Basophil# 0.08 X10^3/uL; Basophil% 0.6 % (0-1); Eosinophil# 0.21 X10^3/uL; Eosinophils% 1.5 % (0-5); Hematocrit 40.2 % (37-47); Hemoglobin 13.2 g/dL (12.0-15.0); Lymphocyte # 4.16 X10^3/ul (0.83-4.51); Lymphocyte % 29.7 % (19-41); Mean Corp Hgb Conc 32.8 g/dL (32-36); Mean Corpuscular Hgb 28.8 pg (27.0-32.0); Mean Corpuscular Volume 87.6 fL (81-99); Monocyte# 0.86 X10^3/uL; Monocyte% 6.1 % (0-10); NRBC Flagged by Analyzer 0 % (0-5); Neutrophil # 8.61 X10^3/uL (2.7-7.7); Neutrophil % 61.6 % (47-70); Platelet Count 366 K/mm3 (150-450); RBC Distribution Width SD 38.3 fl (35.1-43.9); Red Blood Count 4.59 M/mm3 (4.2-5.4)
[2022-11-07 16:51] LABS: Erythrocyte Sedimentation Rate 23 mm/hr (0-30)
[2022-11-07 16:56] LABS: ALB/GLOB Ratio 0.7 RATIO (0.9-2.4); AST(SGOT) 15 U/L (15-37); Alanine Aminotransfer ALT/SGPT 21 U/L (13-56); Albumin, Serum 3.3 g/dL (3.2-5.0); Alkaline Phosphatase 92 U/L (45-117); Anion Gap 5 (5-15); BUN 10 mg/dL (7-18); BUN/Creat Ratio 17.4 RATIO (10-20); Calcium,Total 9.7 mg/dL (8.5-10.1); Chloride 104 mmol/L (98-107); Creatinine, Serum 0.57 mg/dL (0.55-1.02); EST Glomerular Filtration Rate 130 mL/min (>60); Est Glom Filt Rate - Afr Amer 158 mL/min (>60); Globulin 4.6 g/dL (2.2-4.2); Glucose 82 mg/dL (74-106); Potassium 4.2 mmol/L (3.5-5.1); Protein, Total 7.9 g/dL (6.4-8.2); Sodium Level 137 mmol/L (136-145)
[2022-11-10 08:11] LABS: QNTFERON TB Mitogen Value > 10.00 IU/mL (.); QNTFERON TB Nil Value 0.06 IU/mL (.); QNTFERON TB1+ Ag Value 0.02 IU/mL (.); QNTFERON TB2+ Ag Value 0.05 IU/mL (.); QNTIFERON TB Positive Criteria Negative (Negative)
== END | disposition home or self-care (01) ==
PROVIDERS: PCP Internal Medicine; Visit Provider Nurse Practitioner Adult Health
DX: K50.90 Crohn's disease, unspecified, without complications (principal)
CPT/HCPCS: 36415; 80053; 85025; 85652; 86140; 86480

== ENCOUNTER 2022-12-13 05:18 | Day surgery (SDC) | payer OTHER, SELFPAY ==
--- NOTE | 2022-12-13 | IMM_PTH ---
PATIENT: WADE ESPARZA LOC: EN U#:[id number] AGE/SX: 32/F ROOM: RE12/13/[address]: Dr. Valentin Whitmore DO : 1990 BED: DIS: 12/13/2022 SPEC #: [id number] RECD: 12/14/22 08:08 STATUS: DANIAL REGio #: [id number] DWIGHT: 12/13/22 00:[address]: Valentin Whitmore DEPT: IMMUNOHISTOCHEMISTRY RECD BY: Jluis Bustamante ENTERED: 12/14/22 08:08 SP TYPE: IMMUNO OTHR DR: Dr. May Alicia DO Tissues: B - Gastric mucous membrane Procedures: H Pylori (initial) PHYSICIAN & INSTITUTION [place] [address] SPECIMEN INFORMATION: Tissue Source: Gastric body Clinical Info: Crohn's disease, IBS Specimen Number: [id number] CPT code: 01408 METHODOLOGY: Deparaffinized sections of prefer/formalin-fixed tissue or PAP/DQ stained slides are incubated with monoclonal/polyclonal antibodies/oligonucleotide probes. Localization is made via biotin free immunoperoxidase method. Appropriate controls are performed and reacted as expected. Results on target cell population are indicated in the following table: RESULTS: ANTIBODY / CLONE RESULT H Pylori (polyclonal) negative These tests were developed and their performance characteristics determined by [facility]. They may not have been cleared or approved by the U.S. Food and Drug Administration. The FDA has determined that such clearance or approval is not necessary. The above immunohistochemical/dualISH markers are ordered and reviewed by the Pathologist. INTERPRETATION: B. Gastric body, biopsy: Negative for Helicobacter pylori organisms. AM:almaz 12/14/22
--- NOTE | 2022-12-13 | GASB_PTH ---
PATIENT: WADE ESPARZA LOC: EN U#:[id number] AGE/SX: 32/F ROOM: RE12/13/[address]: Dr. Valentin Whitmore DO : 1990 BED: DIS: 12/13/2022 SPEC #: [id number] RECD: 12/13/22 13:13 STATUS: DANIAL TELLY #: [id number] DWIGHT: 12/13/22 00:[address]: Valentin Whitmore DEPT: SURGICAL PATHOLOGY RECD BY: Prudencio Frank ENTERED: 12/13/22 13:14 SP TYPE: Gastric Bx OTHR DR: Dr. May Alicia DO Tissues: A - Duodenum, NOS B - Gastric mucous membrane C - Esophageal mucous membrane D - Ileum, NOS Procedures: Special Stain Group II Surgery Specimen Level IV Alcian Blue/PAS (control) HEADER OPERATION: Colonoscopy, EGD PRE-OP DIAGNOSIS: Crohn's disease, IBS TISSUE SUBMITTED: A. Duodenum, B. Gastric body, C. Distal esophagus, D. Terminal ileum MICROSCOPIC DIAGNOSIS A. Duodenum, biopsy: Mild non-specific chronic inflammation. B. Gastric body, biopsy: Mild chronic inflammation. C. Distal esophagus, biopsy: Junctional mucosa with chronic inflammation. No evidence of goblet cell metaplasia. See Comment. D. Terminal ileum, biopsy: Acute and chronic enteritis, non-specific. AM:lynn 12/14/22 COMMENT B. The results of immunohistochemistry for Helicobacter pylori will be reported separately ([id number]). C. Alcian blue/PAS stain with matched control supports the above diagnosis. MICROSCOPIC DESCRIPTION Slides are reviewed. GROSS DESCRIPTION A. Received is one container labeled with the patient name and designated duodenum. The specimen consists of one irregular fragment of light alexis soft tissue that measures .3 x .2 x .1 cm. The specimen is totally submitted in one cassette. B. Received is one container labeled with the patient name and designated gastric body. The specimen consists of multiple irregular fragments of light alexis soft tissue that in aggregate measure 1 x .4 x .1 cm. The specimen is totally submitted in one cassette. C. Received is one container labeled with the patient name and designated distal esophagus. The specimen consists of multiple irregular fragments of light alexis soft tissue that in aggregate measure 1 x .3 x .1 cm. The specimen is totally submitted in one cassette. D. Received is one container labeled with the patient name and designated terminal ileum. The specimen consists of multiple irregular fragments of light alexis soft tissue that in aggregate measure 1.5 x .3 x .1 cm. The specimen is totally submitted in one cassette. /VERENICE:almaz 12/14/22 TC:2 CPT:30455 x4, 51770
[2022-12-13 05:53] VITALS: BP 134/88; PULSE 90; RESP 18; TEMP 36.8; O2SAT 99; BMI 47.7
[2022-12-13 06:05] LABS: Internal QC Validated? YES +Cl - CLEAR BKGD; Pregnancy, Urine Negative Negative
[2022-12-13] MEDS: Lactated Ringers 1,000 ML 15 ML IV (06:10)
--- NOTE | 2022-12-13 06:33 | PCM.HP.BLA ---
History and Physical Date of Admission: 12/13/22 WADE ESPARZA, is a 32 F who presents to the office today for 3 month f/u Crohn's and IBS. She loves her job. Was able to d/c lomotil. Was able to decrease colestipol from 2 g qhs to 1 g; next step is to try stopping colestipol. She has BM once daily, normal formed stool. Trying to reintroduce foods, had loose stool with salad but not diarrhea. No nausea or acid reflux.? She continues to take pantoprazole. 03/2022 EGD showed small hiatal hernia, normal esophagus, erythema in antrum, patulous and incompetent pyloric sphincter, nonbleeding duodenal ulcers; biopsies showed chronic active gastritis, mild villous blunting in duodenum (celiac lab test negative), moderate chronic active inflammation and findings consistent with IBD in TI. 05/2022 Capsule Endoscopy: stomach ulcer, lots of inflammation in the small bowel Crohn's --moderate to severe, small bowel (per bx) and colon (elevated calprotectin).? Symptoms began in high school in 2009, started with bright red blood per rectum. She was first treated with budesonide and azathioprine; she reports they weren't effective. Then in 2014 she had cholecystectomy; that surgeon told her she didn't have Crohn's so she stopped treatment. She felt ok for awhile but then in 2018 she started having more issues--severe diarrhea all the time. So she went to a GI doctor in [place] in 2019; he put her on Humira, she was always on it weekly, it helped but her symptoms never resolved, then it stopped working at all after about a year. She started Stelara in 04/2021. She has been treated with prednisone, twice since 2019. Had ankle fracture last yr that was attributed to steroid use. Bxs 03/2022: moderate chronic active inflammation and findings consistent with IBD in TI. 03/2022: She does not have antibodies to Stelara; Stelara level 3.3, which is low despite every 4 weeks.?05/2022 lab panel suggestive of Crohn's. ROS Const Constitutional: Positive for fatigue and headache(s) ENT ENT: Positive for headache(s); No difficulty swallowing Gastro GI: Positive for bloating, excessive flatus, nausea/dyspepsia and vomiting; No abdominal pain, belching, change in bowel habits, change in stool character, coffee ground emesis, constipation, cramping, diarrhea, heartburn, difficulty swallowing, feeling full early, incontinent of stools, Vomiting blood/hematemesis, Blood in stool, loose stools, Black,tarry stools, pain with swallowing or other Musc Musculoskeletal: Positive for joint pain, back pain, joint swelling, numbness, stiffness, tingling and Arthritis Skin Skin: No yellowing of the eye or itchy eyes Neuro Neurology: Positive for headache(s), numbness and tingling Psych Psychiatric: Positive for anxiety and No depression Endo Endocrine: Positive for fatigue Aller/Imm Allergy/Immunologic: No itchy eyes Luis/Lymp Hematologic/Lymphatic: No easy bleeding or easy bruising Exam Const General: cooperative and comfortable Nutritional Appearance: obese Orientation: alert, awake and oriented x3 Quality Reporting Tobacco Screening ([facility] 138) Smoking Status: Never smoker Assessment and Plan Assessment and Plan (1) Crohn's disease: Status: Chronic Plan: IBD significantly improved with job change. She was able to discontinue lomotil, was able to decrease colestipol from 2 g to 1 g nightly, she will try to d/c colestipol completely. Only needs dicyclomine prn now. Continue Stelara q4wks for now. Update labs for inflammation in blood and colon. Update endoscopies to eval for ongoing Crohn's. (2) IBS (irritable bowel syndrome): Status: Chronic Plan: as above Orders: Orders Comprehensive Metabolic Profil Today K50.90 - Crohn's disease, unspecified, without complications CRP Today K50.90 - Crohn's disease, unspecified, without complications CBC W/Diff, Automated Today K50.90 - Crohn's disease, unspecified, without complications Erythrocyte Sed Rate Today K50.90 - Crohn's disease, unspecified, without complications Calprotectin, Stool Today K50.90 - Crohn's disease, unspecified, without complications Stool Lactoferrin/WBC Today K50.90 - Crohn's disease, unspecified, without complications, K58.9 - Irritable bowel syndrome without diarrhea Medications: Discontinued diphenoxylate-atropine 2.5-0.025 mg (Lomotil) take 1 tab in the morning and 1 tab in the afternoon Discontinued Reason: Pt no longer taking 1 TAB PO BID 180 tabs 0RF diarrhea I have examined the patient and the H&P has been reviewed. There are no clinical changes since date of exam.
--- NOTE | 2022-12-13 07:19 | OP.COLON_ITS ---
Patient Name: Diane Deshpande Procedure Date: 12/13/2022 6:51 AM Date of : 1990 Age: 32 Procedure: Colonoscopy Indications: Crohn's disease of the small bowel Providers: Valentin Whitmore DO Medicines: Monitored Anesthesia Care Patient Profile: This is a 32 year old female. Refer to note in patient chart for documentation of history and physical. Last Colonoscopy: 1 year ago. Complications: No immediate complications. Procedure: Pre-Anesthesia Assessment: - Prior to the procedure, a History and Physical was performed, and patient medications and allergies were reviewed. The risks and benefits of the procedure and the sedation options and risks were discussed with the patient. All questions were answered and informed consent was obtained. Patient identification and proposed procedure were verified by the physician in the pre-procedure area. Mental Status Examination: alert and oriented. Airway Examination: normal oropharyngeal airway and neck mobility. Respiratory Examination: clear to auscultation. CV Examination: normal. Prophylactic Antibiotics: The patient does not require prophylactic antibiotics. Prior Anticoagulants: The patient has taken no previous anticoagulant or antiplatelet agents. ASA Grade Assessment: II - A patient with mild systemic disease. After reviewing the risks and benefits, the patient was deemed in satisfactory condition to undergo the procedure. The anesthesia plan was to use monitored anesthesia care (MAC). Immediately prior to administration of medications, the patient was re-assessed for adequacy to receive sedatives. The heart rate, respiratory rate, oxygen saturations, blood pressure, adequacy of pulmonary ventilation, and response to care were monitored throughout the procedure. The physical status of the patient was re-assessed after the procedure. After I obtained informed consent, the scope was passed under direct vision. Throughout the procedure, the patient's blood pressure, pulse, and oxygen saturations were monitored continuously. The colonoscope was introduced through the anus and advanced to the terminal ileum. The colonoscopy was performed without difficulty. The patient tolerated the procedure well. The quality of the bowel preparation was good. Scope In: 6:54:10 AM Scope Withdrawal Time 0 hours 14 minutes 2 seconds Scope Out: 7:12:50 AM Total Procedure Duration Time 0 hours 18 minutes 40 seconds Findings: The perianal and digital rectal examinations were normal. The colon (entire examined portion) appeared normal. Localized inflammation, graded as Rutgeerts Score i2 (more than five aphthous lesions with normal intervening mucosa or skip areas of larger lesions or lesions confined to the ileocolonic anastomosis) and characterized by erosions, erythema and friability was found in the distal ileum and in the terminal ileum. Biopsies were taken with a cold forceps for histology. Verification of patient identification for the specimen was done. Estimated blood loss was minimal. Impression: - The entire examined colon is normal. - Inflammatory bowel disease. Biopsied. Recommendation: - Discharge patient to home. - Resume previous diet. - Continue present medications. - Await pathology results. - Repeat colonoscopy in 1 year. Procedure Code(s): --- Professional --- 77578, Colonoscopy, flexible; with biopsy, single or multiple CPT copyright 2017 [employer]. All rights reserved. The codes documented in this report are preliminary and upon cardiology associate review may be revised to meet current compliance requirements. Valentin Whitmore DO 12/13/2022 7:18:50 AM This report has been signed electronically. Number of Addenda: 0 Note Initiated On: 12/13/2022 6:51 AM
[2022-12-13 07:20] VITALS: BP 134/88; BP 96/72; PULSE 82; RESP 16; TEMP 36.2; O2SAT 100
--- NOTE | 2022-12-13 07:20 | OP.CCLET_ITS ---
12/13/2022 May Alicia [address] [place] [address] Re : Colonoscopy procedure for Diane Deshpande Dear Dr. Alicia This procedure was performed on December. My impressions and recommendations are as follows: Impressions : - The entire examined colon is normal. - Inflammatory bowel disease. Biopsied. Recommendations : - Discharge patient to home. - Resume previous diet. - Continue present medications. - Await pathology results. - Repeat colonoscopy in 1 year. My findings are described in the full procedure note, which is enclosed. If I can be of further assistance, please feel free to contact me at . Sincerely, Valentin Whitmore, 12/13/2022 7:18:50 AM This report has been signed electronically.
--- NOTE | 2022-12-13 07:22 | OP.EGD_ITS ---
Patient Name: Diane Deshpande Procedure Date: 12/13/2022 6:21 AM Date of : 1990 Age: 32 Procedure: Upper GI endoscopy Indications: Epigastric abdominal pain, Heartburn Providers: Valentin Whitmore DO Medicines: Monitored Anesthesia Care Patient Profile: This is a 32 year old female. Refer to note in patient chart for documentation of history and physical. Patient has symptoms of chronic abdominal cramping. Complications: No immediate complications. Procedure: Pre-Anesthesia Assessment: - Prior to the procedure, a History and Physical was performed, and patient medications and allergies were reviewed. The patient is competent. The risks and benefits of the procedure and the sedation options and risks were discussed with the patient. All questions were answered and informed consent was obtained. Patient identification and proposed procedure were verified by the physician in the pre-procedure area. Mental Status Examination: alert and oriented. Airway Examination: normal oropharyngeal airway and neck mobility. Respiratory Examination: clear to auscultation. CV Examination: normal. Prophylactic Antibiotics: The patient does not require prophylactic antibiotics. Prior Anticoagulants: The patient has taken no previous anticoagulant or antiplatelet agents. ASA Grade Assessment: II - A patient with mild systemic disease. After reviewing the risks and benefits, the patient was deemed in satisfactory condition to undergo the procedure. The anesthesia plan was to use monitored anesthesia care (MAC). Immediately prior to administration of medications, the patient was re-assessed for adequacy to receive sedatives. The heart rate, respiratory rate, oxygen saturations, blood pressure, adequacy of pulmonary ventilation, and response to care were monitored throughout the procedure. The physical status of the patient was re-assessed after the procedure. After obtaining informed consent, the endoscope was passed under direct vision. Throughout the procedure, the patient's blood pressure, pulse, and oxygen saturations were monitored continuously. The colonoscope was introduced through the mouth, and advanced to the second part of duodenum. The upper GI endoscopy was accomplished without difficulty. The patient tolerated the procedure well. Scope In: 6:46:47 AM Scope Out: 6:51:38 AM Total Procedure Duration Time 0 hours 4 minutes 51 seconds Findings: The Z-line was irregular and was found 40 cm from the incisors. Patchy mildly erythematous mucosa without bleeding was found in the gastric body. Biopsies were taken with a cold forceps for histology. Verification of patient identification for the specimen was done. Estimated blood loss was minimal. Patchy mildly erythematous mucosa without active bleeding and with no stigmata of bleeding was found in the duodenal bulb. Biopsies were taken with a cold forceps for histology. Verification of patient identification for the specimen was done. Estimated blood loss was minimal. Impression: - Z-line irregular, 40 cm from the incisors. - Erythematous mucosa in the gastric body. Biopsied. - Erythematous duodenopathy. Biopsied. Recommendation: - Discharge patient to home. - Resume previous diet. - Continue present medications. - Await pathology results. Procedure Code(s): --- Professional --- 07046, Esophagogastroduodenoscopy, flexible, transoral; with biopsy, single or multiple CPT copyright 2017 [employer]. All rights reserved. The codes documented in this report are preliminary and upon analyst competitive intelligence review may be revised to meet current compliance requirements. Valentin Whitmore DO 12/13/2022 7:22:08 AM This report has been signed electronically. Number of Addenda: 0 Note Initiated On: 12/13/2022 6:21 AM
--- NOTE | 2022-12-13 07:23 | OP.CCLET_ITS ---
12/13/2022 May Alicia [address] [place] [address] Re : Upper GI endoscopy procedure for Diane Deshpande Dear Dr. Alicia This procedure was performed on December. My impressions and recommendations are as follows: Impressions : - Z-line irregular, 40 cm from the incisors. - Erythematous mucosa in the gastric body. Biopsied. - Erythematous duodenopathy. Biopsied. Recommendations : - Discharge patient to home. - Resume previous diet. - Continue present medications. - Await pathology results. My findings are described in the full procedure note, which is enclosed. If I can be of further assistance, please feel free to contact me at . Sincerely, Valentin Whitmore, 12/13/2022 7:22:08 AM This report has been signed electronically.
[2022-12-13 07:25] VITALS: BP 120/77; BP 134/88; PULSE 71; RESP 16; O2SAT 100
[2022-12-13 07:30] VITALS: BP 121/74; BP 134/88; PULSE 69; RESP 16; O2SAT 100
[2022-12-13 07:35] VITALS: BP 129/76; BP 134/88; PULSE 71; RESP 16; TEMP 36.3; O2SAT 100
[2022-12-13 07:49] VITALS: BP 134/88
== END 2022-12-13 08:06 | disposition home or self-care (01) ==
LOC: EN 05:18 → AC 05:20
PROVIDERS: PCP Internal Medicine; Referring Provider Internal Medicine; Visit Provider Internal Medicine Gastroenterology
PROC: 0DJD8ZZ Inspection of Lower Intestinal Tract, Via Natural or Artificial Opening Endoscopic (ICD-10-PCS; CPT 45378; principal; 2022-12-13 06:25)
DX: K50.80 Crohn's disease of both small and large intestine without complications (principal); Z68.42 Body mass index [BMI] 45.0-49.9, adult; K29.90 Gastroduodenitis, unspecified, without bleeding; R10.13 Epigastric pain; E66.9 Obesity, unspecified; Z90.49 Acquired absence of other specified parts of digestive tract; Z79.899 Other long term (current) drug therapy
CPT/HCPCS: 45380; 43239; 81025; 88305; 88313; 88342; J7120; J2405

== ENCOUNTER → 2023-01-02 | Outpatient (CLI) | payer OTHER, SELFPAY ==
[2023-01-02 15:36] LABS: Erythrocyte Sedimentation Rate 18 mm/hr (0-30)
[2023-01-07 08:07] LABS: Immunoglobulin A 232 mg/dL (87-352); Immunoglobulin E 85 IU/mL (6-495); Immunoglobulin G 1361 mg/dL (586-1602); Immunoglobulin M 68 mg/dL (26-217)
== END | disposition home or self-care (01) ==
PROVIDERS: PCP Internal Medicine; Referring Provider Internal Medicine Gastroenterology; Visit Provider Internal Medicine Gastroenterology
DX: K50.90 Crohn's disease, unspecified, without complications (principal); K58.9 Irritable bowel syndrome, unspecified
CPT/HCPCS: 36415; 82784; 82785; 85652; 86140

== ENCOUNTER 2023-01-17 12:48 | Emergency (ER) | payer OTHER, SELFPAY ==
[2023-01-17 12:49] VITALS: BP 163/98; PULSE 108; RESP 18; TEMP 36.4; O2SAT 100
[2023-01-17 13:11] VITALS: BMI 46.9
--- NOTE | 2023-01-17 13:38 | ED.VIS.LOWEX ---
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 She states it felt like somebody hit her there. No injury. Trouble walking, mostly the issue is with moving the ankle, not necessarily with weightbearing. She is on no antibiotics or other new/different medications recently. She is on a biologic for Crohn's and that is currently well controlled. [facility] Medical History Anxiety Arthritis Crohn disease Depression Electrocution, initial encounter Gastric reflux Headache High cholesterol History of Crohn's disease History of GI bleed Injury of head and neck Injury of left shoulder Left shoulder strain Low back pain Malnutrition Migraine headache Mixed hyperlipidemia Non-smoker Painful defecation Proteinuria Radiculopathy, cervical region Thoracic myofascial strain Unspecified abdominal pain Vertigo Viral URI Vitamin B12 deficiency Wears contact lenses Home Medications folic acid 0.8 mg capsule 0.8 mg PO DAILY 05/02/18 [History Last Taken 08/24/19] selenium 200 mcg capsule 200 mcg PO DAILY 05/02/18 [History Last Taken 08/24/19] norgestimate 0.25 mg-ethinyl estradiol 35 mcg tablet 1 ea PO DAILY 08/10/19 [History Last Taken 08/24/19] cyanocobalamin (vitamin B-12) 500 mcg tablet 1,000 mcg PO DAILY 08/24/19 [History Last Taken 08/24/19] cholecalciferol (vitamin D3) 25 mcg (1,000 unit) capsule 25 mcg PO DAILY 12/22/21 [History Last Taken Unknown] turmeric 400 mg capsule 400 mg PO DAILY 12/22/21 [History Last Taken Unknown] ustekinumab 90 mg/mL subcutaneous syringe (Stelara) 90 mg subcut Q4W #1 mL 11/07/22 [Rx Last Taken Unknown] pantoprazole 40 mg tablet,delayed release 40 mg PO DAILY acid reflux #90 tabs 01/01/23 [Rx Last Taken Unknown] Allergy/AdvReac Type Severity Reaction Status Date / Time No Known Allergies Allergy Verified 01/17/23 12:49 Family History Grandmother Diabetes Asthma Grandfather Diabetes Heart disease Kidney disease Father Diabetes Mother Hypertension Other Thyroid disorder Surgical History H/O adenoidectomy History of cholecystectomy History of esophagogastroduodenoscopy (EGD) History of tonsillectomy Hx of colonoscopy Social History Smoking Status: Never smoker alcohol intake: never ROS ROS ED Constitutional Constitutional ED: Denies chills or fever(s) Musculoskeletal Musculoskeletal: Reports extremity pain; Denies neck pain Integumentary Denies Abrasions, rash or wounds Neurologic Neurologic: Denies paresthesias or weakness EXAM Physical Exam Const Vital Signs: 01/17/23 12:49 Temperature 97.6 F L Temperature Source Temporal Pulse Rate 108 H Respiratory Rate 18 Blood Pressure 163/98 H Blood Pressure Mean 119 Pulse Ox 100 Oxygen Delivery Method Room Air Positive well nourished and well developed General Appearance ED: well developed and NAD Neck full ROM and supple Back/Spine normal ROM and normal to inspection Extremity Extremity Narrative: Left lower extremity: Able to move ankle but with pain posteriorly, more medially. No bony tenderness. No calcaneus or other foot tenderness. Tenderness is at the medial aspect of the Achilles. Placed in the patient prone, Garces's test appears to elicit some plantarflexion. The ankle is not erythematous, warm, or extremely tender anywhere except for above area. Neuro oriented x3, no focal motor deficits and no sensory deficits noted Sensorium / Orientation: alert Psych mental status grossly normal and thought process normal Skin no wounds Rashes: no rashes MDM MDM MDM Narrative Medical decision making narrative: Patient is mostly tender in the area of the Achilles, and her symptoms are concerning for a spontaneous rupture of the Achilles tendon. I obtained foot x-rays, 3 views of my interpretation are negative for any acute bony avulsion fracture or other injury. Discussed with podiatry Dr. Julien who agrees with having her follow-up for reexamination and probable MRI, and having her put in an orthotic boot and given crutches for nonweightbearing. Given appropriate work restrictions as well. She has a boot at home and crutches, but I am given her a set of crutches here in order to get home without putting weight on it, and she can use the boot when she gets there. Discharge Plan Triage Chief Complaint: Lower Extremity Injury ED Provider: Dwight Vasquez Dx/Rx/DC Orders Clinical Impression: Achilles rupture, left Instructions: Using Crutches: [id number]-[id number]-[place], Achilles Tendon Rupture Prescriptions: No Action selenium 200 mcg capsule 200 mcg capsule 200 mcg PO DAILY folic acid 0.8 mg capsule 0.8 mg PO DAILY turmeric 400 mg capsule 400 mg PO DAILY cholecalciferol (vitamin D3) 25 mcg (1,000 unit) capsule 25 mcg PO DAILY pantoprazole 40 mg tablet,delayed release (DR/EC) 40 mg PO DAILY Qty: 90 3RF norgestimate-ethinyl estradiol 1 EACH tablet 1 ea PO DAILY cyanocobalamin (vitamin B-12) 500 MCG tablet 1,000 mcg PO DAILY Stelara 90 mg/mL syringe 90 mg subcut Q4W Qty: 1 12RF Stand Alone Forms: ED Work / School Excuse Primary Care Provider: May Alicia Referrals: May Alicia, [Primary Care Provider] - Azeem Julien DPM [Med Staff - Active Staff] - As soon as possible Disposition Disposition: Home, Self Care
--- NOTE | 2023-01-17 13:41 | RAD_ITS ---
INDICATION: pain attn: achilles/calc EXAMINATION/TECHNIQUE: X-RAY - LEFT XR Foot Min 3 Views COMPARISON: None. FINDINGS: No acute fracture or malalignment. No blastic or lytic lesions. No degenerative changes are seen. Small dorsal calcaneus enthesophyte. Mild hallux valgus deformity. The soft tissues are unremarkable. RAD/Foot min 3 Views IMPRESSION: No acute radiographic abnormalities. Tiny heel spur. Electronically Signed: Mauricio Francois MD at 16:20 EDT ,
== END 2023-01-17 14:44 | disposition home or self-care (01) ==
PROVIDERS: Emergency Provider Emergency Medicine; PCP Internal Medicine; Visit Provider Emergency Medicine
DX: M66.862 Spontaneous rupture of other tendons, left lower leg (principal); X58.XXXA Exposure to other specified factors, initial encounter
CPT/HCPCS: 73630; 99283

== ENCOUNTER → 2023-02-01 | Outpatient (CLI) | payer OTHER, SELFPAY ==
--- NOTE | 2023-02-01 06:48 | MRI_ITS ---
STUDY: MRI LEFT ANKLE WITHOUT CONTRAST REASON FOR EXAM: Female, 32 years old. ACHILLES TEAR TECHNIQUE: Standardized fat and water weighted pulse sequences were obtained in all 3 orthogonal planes. COMPARISON: None. FINDINGS: Mild subchondral marrow edema pattern is present in the posterior aspect of the distal tibial metaphysis. No acute fractures are present. No visualized osteochondral defects. No cysts or erosions or osteophytes are present. Small ankle joint effusion noted. Normal subcutis adipose space. Normal posterior tibialis tendon. Normal flexor digitorum longus tendon. Normal flexor hallucis longus tendon. Normal peroneus longus and brevis tendons. Normal tibialis anterior tendon. Normal extensor hallucis longus tendon. Normal extensor digitorum longus tendons. Normal Achilles tendon and teno-osseous insertion. Normal plantar fascia. Normal plantar calcaneal tubercles. Normal intrinsic muscles of the rearfoot. Normal distal tibiofibular syndesmotic ligamentous complex. Normal lateral ligamentous complex. Normal subtalar ligaments and sinus tarsi. Normal deltoid ligamentous complexes. Normal plantar calcaneonavicular (spring) ligament. Normal tibiotalar articulation. Normal talar dome. Normal subtalar articulations. Normal talonavicular articulation. Normal calcaneocuboid articulation. Normal navicular-cuneiform articulations. MRI/Lower Ext Joint Only (Routine) IMPRESSION: 1. Mild subchondral marrow edema pattern is present in the posterior aspect of the distal tibial metaphysis. No acute fractures are present. No visualized osteochondral defects. No cysts or erosions or osteophytes are present. Small ankle joint effusion noted. 2. Normal Achilles tendon. Electronically Signed: Jay Ochoa MD at 9:47 EDT ,
== END | disposition home or self-care (01) ==
PROVIDERS: PCP Internal Medicine; Referring Provider Student in an Organized Health Care Education/Training Program; Visit Provider Student in an Organized Health Care Education/Training Program
DX: S86.012A Strain of left Achilles tendon, initial encounter (principal)
CPT/HCPCS: 73721

== ENCOUNTER → 2023-04-02 | Outpatient (CLI) | payer OTHER, SELFPAY ==
--- NOTE | 2023-04-02 09:49 | NM_ITS ---
CLINICAL: 32-year-old female with history of previous cholecystectomy with complaint of abdominal pain. RADIONUCLIDE HEPATOBILIARY SCINTIGRAPHY COMPARISON: Previous hepatobiliary scintigraphy study dated 07/12/2014 FINDINGS: Following the intravenous administration of 5.5 mCi of 99m Tc Mebrofenin, hepatobiliary images reveal: 1. Relatively prompt and homogeneous radiopharmaceutical concentration is noted by a normal sized liver. No parenchymal defects are identified. 2. Gallbladder activity is not identified during 60 minutes of sequential imaging commensurate with known history of prior cholecystectomy. 3. Small intestinal tract is observed at 27 minutes post radiopharmaceutical administration. 4. Washout of the radiopharmaceutical by the hepatic parenchyma appears qualitatively normal. NM/Hepatobilliary Imaging IMPRESSION: 1. Nonvisualization of the gallbladder is consistent with prior cholecystectomy. 2. There is no scintigraphic evidence of duodenal gastric reflux. Electronically Signed: Ravi Arellano DO at 12:12 EDT ,
== END | disposition home or self-care (01) ==
LOC: NM 09:45
PROVIDERS: PCP Internal Medicine; Referring Provider Internal Medicine Gastroenterology; Visit Provider Internal Medicine Gastroenterology
DX: K21.9 Gastro-esophageal reflux disease without esophagitis (principal)
CPT/HCPCS: 78226; A9537

== ENCOUNTER → 2023-05-17 | Outpatient (CLI) | payer OTHER, SELFPAY ==
--- NOTE | 2023-05-17 09:24 | MRI_ITS ---
MR Enterography Abdomen/Pelvis WO/W Contrast 05/17/2023 10:34 AM COMPARISON: 11/29/2020 CLINICAL HISTORY: Crohn''s disease of small intestine without complications TECHNIQUE: Following oral administration of enteric contrast and administration of glucagon, multiplanar T1 and T2 weighted images along with dynamic post-gadolinium images were obtained through the abdomen and pelvis. FINDINGS: GI Tract: Mild circumferential wall thickening of the terminal ileum as well as a few proximal small bowel loops. No significant mucosal hyperenhancement. No stricture, fistula, or obstruction. No drainable fluid collections. Liver: Unremarkable Gallbladder: Surgically absent. Spleen: Unremarkable Pancreas: Unremarkable Adrenal Glands: Unremarkable Kidneys: Unremarkable Bladder: Unremarkable Reproductive: 4 cm enhancing fibroid in the fundus of the uterus. Lymphadenopathy: Absent Ascites: Absent Bones: No suspicious lesions MRI/Enterography Abd/Pel IMPRESSION: Findings consistent with history of known Crohn''s disease. No evidence of acute flare. No stricture, fistula, or obstruction. No drainable fluid collections. Fibroid uterus. Electronically Signed: Mauricio Francois MD at 4:03 EST ,
[2023-05-17 09:55] VITALS: BP 159/91; PULSE 101; RESP 16; TEMP 36.5; O2SAT 98; BMI 39.2
[2023-05-17] MEDS: Glucagon 1 MG/ML Syringe IV (10:58)
[2023-05-17] MEDS: 0.9% Saline Lock 10 ML Syringe IV (10:58)
[2023-05-17 11:14] VITALS: BP 160/94; PULSE 92; RESP 16; O2SAT 96
== END | disposition home or self-care (01) ==
LOC: MRI 09:10
PROVIDERS: PCP Internal Medicine; Referring Provider Internal Medicine Gastroenterology; Visit Provider Internal Medicine Gastroenterology
DX: K50.00 Crohn's disease of small intestine without complications (principal)
CPT/HCPCS: 74183; 96374; A9575; A4216; J1610

== ENCOUNTER → 2023-06-17 | Outpatient (CLI) | payer OTHER, SELFPAY ==
[2023-06-21 11:08] LABS: Calprotectin, Stool 181 ug/g (0-120); Fats, Neutral Normal (.); Fats, Total Normal (.)
[2023-06-21 12:09] LABS: Pancreatic Elastase, Fecal 265 (>200)
== END | disposition home or self-care (01) ==
LOC: LABSPEC 05:28
PROVIDERS: PCP Internal Medicine; Visit Provider Internal Medicine Gastroenterology
DX: K50.90 Crohn's disease, unspecified, without complications (principal)
CPT/HCPCS: 82653; 82705; 83630; 83993; 87177; 87209; 87329; 87493; 87506

== ENCOUNTER → 2023-06-25 | Outpatient (CLI) | payer OTHER, SELFPAY ==
--- OUTSIDE RECORDS SUMMARY | 2023-06-25 16:54 | XMS RPT_ITS | CCD ---
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 Shrimp Class I, globulins, celiac, MISC 12.06.24 --/--? --/--? --/--? Crohn???s (apANCA, Dimple), CMV IgG+. AMA, ASM WNL .22.23 29/13? 238/+? --/-- 11.07.22 23/15.4? --/--? --/--? TB, CMP, LFT, CBC WNL ROS Const Constitutional: Positive for fatigue and headache(s) ENT ENT: Positive for headache(s); No difficulty swallowing Gastro GI: Positive for bloating, excessive flatus, nausea/dyspepsia and vomiting; No abdominal pain, belching, change in bowel habits, change in stool character, coffee ground emesis, constipation, cramping, diarrhea, heartburn, difficulty swallowing, feeling full early, incontinent of stools, Vomiting blood/hematemesis, Blood in stool, loose stools, Black,tarry stools, pain with swallowing or other Musc Musculoskeletal: Positive for joint pain, back pain, joint swelling, numbness, stiffness, tingling and Arthritis Skin Skin: No yellowing of the eye or itchy eyes Neuro Neurology: Positive for headache(s), numbness and tingling Psych Psychiatric: Positive for anxiety and No depression Endo Endocrine: Positive for fatigue Aller/Imm Allergy/Immunologic: No itchy eyes Luis/Lymp Hematologic/Lymphatic: No easy bleeding or easy bruising Exam Const General: cooperative and comfortable Nutritional Appearance: obese Orientation: alert, awake and oriented x3 Quality Reporting Tobacco Screening (CMS 138) Smoking Status: Never smoker Assessment and Plan Assessment and Plan (1) Crohn's disease: Status: Chronic Qualifiers: Gastrointestinal tract location: small intestine Digestive disease complication type: without complication Qualified Code(s): K50.00 - Crohn's disease of small intestine without complications Plan: From a subjective standpoint and regarding her Crohn's disease she is having about 2-3 bowel movements a day. Most are a Fountain stool scale of 5 and sometimes 6. She is not having any urgency, bleeding, fecal incontinence, tenesmus or nocturnal symptoms. She was having some joint swelling and stiffness of her hands that is improved with every 4 week Stelara therapy. She is not having any rash or eye findings. She has no history of abnormal liver test while on Stelara or previously. Her last Stelara level was a 4.3 with no antibodies. She definitely likes to be on every 4 weekly Stelara therapy as it has kept her inflammatory markers high normal. We will have to redraw her fecal calprotectin at and get a MR enterography to complete the objective work-up regarding her Crohn's disease. The biopsies from her colonoscopy had shown acute on chronic cryptitis without granuloma formation. (2) IBS (irritable bowel syndrome): Status: Chronic Qualifiers: Irritable bowel syndrome type: with diarrhea Qualified Code(s): K58.0 - Irritable bowel syndrome with diarrhea Plan: as above Orders: Orders Stool Lactoferrin/WBC Today K50.90 - Crohn's disease, unspecified, without complications, K58.9 - Irritable bowel syndrome without diarrhea Erythrocyte Sed Rate Today K50.90 - Crohn's disease, unspecified, without complications, K58.9 - Irritable bowel syndrome without diarrhea CRP Today K50.90 - Crohn's disease, unspecified, without complications, K58.9 - Irritable bowel syndrome without diarrhea Calprotectin, Stool Today K50.90 - Crohn's disease, unspecified, without complications, K58.9 - Irritable bowel syndrome without diarrhea Miscellaneous Lab Procedure Today K50.90 - Crohn's disease, unspecified, without complications Immunoglobulin A Today K50.90 - Crohn's disease, unspecified, without complications, K58.9 - Irritable bowel syndrome without diarrhea Immunoglobulin E Today K50.90 - Crohn's disease, unspecified, without complications, K58.9 - Irritable bowel syndrome without diarrhea Immunoglobulin G Today K50.90 - Crohn's disease, unspecified, without complications, K58.9 - Irritable bowel syndrome without diarrhea Immunoglobulin M Today K50.90 - Crohn's disease, unspecified, without complications, K58.9 - Irritable bowel syndrome without diarrhea Pancreatic Elastase, Fecal Today K50.90 - Crohn's disease, unspecified, without complications, K58.9 - Irritable bowel syndrome without diarrhea Fecal Fat, Qualitative Today K50.90 - Crohn's disease, unspecified, without complications, K58.9 - Irritable bowel syndrome without diarrhea ENTERIC PATHOGEN PANEL STOOL Today K50.90 - Crohn's disease, unspecified, without complications, K58.9 - Irritable bowel syndrome without diarrhea CDIFF (PCR) Today K50.90 - Crohn's disease, unspecified, without complications, K58.9 - Irritable bowel syndrome without diarrhea OVA+PARA w/Giardia EIA [id number] Today K50.90 - Crohn's disease, unspecified, without complications, K58.9 - Irritable bowel syndrome without diarrhea Medications: Refilled pantoprazole 40 mg PO DAILY 90 tabs 3RF acid reflux Coding Level of Care Code Off vis,est,level 4 Diagnoses Crohn's disease of small intestine without complication K50.00 Gastrointestinal tract location: small intestine Digestive disease complication type: without complication Irritable bowel syndrome with diarrhea K58.0 Irritable bowel syndrome type: with diarrhea 01/01/23 0851 <Electronically signed by Valentin Whitmore DO> Date __ Valentin Whitmore DO Cosignsantana Signature: Date __ (if applicable) CC: May Alicia DO Work Phone: Start: 12-13-2022 End: 12-13-2022 EGD Report Procedure Note: See Note; NOTES: [facility] Medical Records Department [address] [place] [address] EGD Report MR#: [id number] Acct: [id number] Name: DIANE DESHPANDE Rep #: [id number] : 1990 32 From: Valentin Whitmore DO PCP: Dr. May Alicia DO Status:[facility] Patient Name: Diane Deshpande Procedure Date: 12/13/2022 6:21 AM Date of : 1990 Age: 32 Procedure: Upper GI endoscopy Indications: Epigastric abdominal pain, Heartburn Providers: Valentin Whitmore DO Medicines: Monitored Anesthesia Care Patient Profile: This is a 32 year old female. Refer to note in patient chart for documentation of history and physical. Patient has symptoms of chronic abdominal cramping. Complications: No immediate complications. Procedure: Pre-Anesthesia Assessment: - Prior to the procedure, a History and Physical was performed, and patient medications and allergies were reviewed. The patient is competent. The risks and benefits of the procedure and the sedation options and risks were discussed with the patient. All questions were answered and informed consent was obtained. Patient identification and proposed procedure were verified by the physician in the pre-procedure area. Mental Status Examination: alert and oriented. Airway Examination: normal oropharyngeal airway and neck mobility. Respiratory Examination: clear to auscultation. CV Examination: normal. Prophylactic Antibiotics: The patient does not require prophylactic antibiotics. Prior Anticoagulants: The patient has taken no previous anticoagulant or antiplatelet agents. ASA Grade Assessment: II - A patient with mild systemic disease. After reviewing the risks and benefits, the patient was deemed in satisfactory condition to undergo the procedure. The anesthesia plan was to use monitored anesthesia care (MAC). Immediately prior to administration of medications, the patient was re-assessed for adequacy to receive sedatives. The heart rate, respiratory rate, oxygen saturations, blood pressure, adequacy of pulmonary ventilation, and response to care were monitored throughout the procedure. The physical status of the patient was re-assessed after the procedure. After obtaining informed consent, the endoscope was passed under direct vision. Throughout the procedure, the patient's blood pressure, pulse, and oxygen saturations were monitored continuously. The colonoscope was introduced through the mouth, and advanced to the second part of duodenum. The upper GI endoscopy was accomplished without difficulty. The patient tolerated the procedure well. Scope In: 6:46:47 AM Scope Out: 6:51:38 AM Total Procedure Duration Time 0 hours 4 minutes 51 seconds Findings: The Z-line was irregular and was found 40 cm from the incisors. Patchy mildly erythematous mucosa without bleeding was found in the gastric body. Biopsies were taken with a cold forceps for histology. Verification of patient identification for the specimen was done. Estimated blood loss was minimal. Patchy mildly erythematous mucosa without active bleeding and with no stigmata of bleeding was found in the duodenal bulb. Biopsies were taken with a cold forceps for histology. Verification of patient identification for the specimen was done. Estimated blood loss was minimal. Impression: - Z-line irregular, 40 cm from the incisors. - Erythematous mucosa in the gastric body. Biopsied. - Erythematous duodenopathy. Biopsied. Recommendation: - Discharge patient to home. - Resume previous diet. - Continue present medications. - Await pathology results. Procedure Code(s): --- Professional --- 00113, Esophagogastroduodenoscopy, flexible, transoral; with biopsy, single or multiple CPT copyright 2017 [employer]. All rights reserved. The codes documented in this report are preliminary and upon lens grinder and polisher review may be revised to meet current compliance requirements. Valentin Whitmore DO 12/13/2022 7:22:08 AM This report has been signed electronically. Number of Addenda: 0 Note Initiated On: 12/13/2022 6:21 AM 12/13/22721 Date __ Valentin Whitmore DO Cosigner Signature: Date __ (if indicated) CC: Dr. May Alicia DO; Valentin Whitmore DO Date Dictated: 12/13/22620 Date Transcribed: Gantry Crane Operator: CATERINA Signed May Alicia DO Work Phone: Start: 12-13-2022 End: 12-13-2022 Colonoscopy Report Procedure Note: See Note; NOTES: [facility] Medical Records Department [address] [place] [address] Colonoscopy Report MR#: [id number] Acct: [id number] Name: DIANE DESHPANDE Rep #: [id number] : 1990 32 From: Valentin Whitmore DO PCP: Dr. May Alicia, DO Status:[facility] Patient Name: Diane Deshpande Procedure Date: 12/13/2022 6:51 AM Date of : 1990 Age: 32 Procedure: Colonoscopy Indications: Crohn's disease of the small bowel Providers: Valentin Whitmore DO Medicines: Monitored Anesthesia Care Patient Profile: This is a 32 year old female. Refer to note in patient chart for documentation of history and physical. Last Colonoscopy: 1 year ago. Complications: No immediate complications. Procedure: Pre-Anesthesia Assessment: - Prior to the procedure, a History and Physical was performed, and patient medications and allergies were reviewed. The risks and benefits of the procedure and the sedation options and risks were discussed with the patient. All questions were answered and informed consent was obtained. Patient identification and proposed procedure were verified by the physician in the pre-procedure area. Mental Status Examination: alert and oriented. Airway Examination: normal oropharyngeal airway and neck mobility. Respiratory Examination: clear to auscultation. CV Examination: normal. Prophylactic Antibiotics: The patient does not require prophylactic antibiotics. Prior Anticoagulants: The patient has taken no previous anticoagulant or antiplatelet agents. ASA Grade Assessment: II - A patient with mild systemic disease. After reviewing the risks and benefits, the patient was deemed in satisfactory condition to undergo the procedure. The anesthesia plan was to use monitored anesthesia care (MAC). Immediately prior to administration of medications, the patient was re-assessed for adequacy to receive sedatives. The heart rate, respiratory rate, oxygen saturations, blood pressure, adequacy of pulmonary ventilation, and response to care were monitored throughout the procedure. The physical status of the patient was re-assessed after the procedure. After I obtained informed consent, the scope was passed under direct vision. Throughout the procedure, the patient's blood pressure, pulse, and oxygen saturations were monitored continuously. The colonoscope was introduced through the anus and advanced to the terminal ileum. The colonoscopy was performed without difficulty. The patient tolerated the procedure well. The quality of the bowel preparation was good. Scope In: 6:54:10 AM Scope Withdrawal Time 0 hours 14 minutes 2 seconds Scope Out: 7:12:50 AM Total Procedure Duration Time 0 hours 18 minutes 40 seconds Findings: The perianal and digital rectal examinations were normal. The colon (entire examined portion) appeared normal. Localized inflammation, graded as Rutgeerts Score i2 (more than five aphthous lesions with normal intervening mucosa or skip areas of larger lesions or lesions confined to the ileocolonic anastomosis) and characterized by erosions, erythema and friability was found in the distal ileum and in the terminal ileum. Biopsies were taken with a cold forceps for histology. Verification of patient identification for the specimen was done. Estimated blood loss was minimal. Impression: - The entire examined colon is normal. - Inflammatory bowel disease. Biopsied. Recommendation: - Discharge patient to home. - Resume previous diet. - Continue present medications. - Await pathology results. - Repeat colonoscopy in 1 year. Procedure Code(s): --- Professional --- 67702, Colonoscopy, flexible; with biopsy, single or multiple CPT copyright 2017 [employer]. All rights reserved. The codes documented in this report are preliminary and upon lens grinder and polisher review may be revised to meet current compliance requirements. Valentin Whitmore DO 12/13/2022 7:18:50 AM This report has been signed electronically. Number of Addenda: 0 Note Initiated On: 12/13/2022 6:51 AM 12/13/22718 Date __ Valentin Whitmore DO Cosigner Signature: Date __ (if indicated) CC: Dr. May Alicia DO; Valentin Whitmore DO Date Dictated: 12/13/22 0651 Date Transcribed: Gantry Crane Operator: CATERINA Signed May Alicia DO Work Phone: Start: 12-13-2022 End: 12-13-2022 History and Physical Exam Procedure Note: See Note; NOTES: [facility] Medical Records Department [address] [place] [address] History Physical Exam 12/13/22 0633 MR#: [id number] Acct: [id number] Name: DIANE DESHPANDE Rep #: [id number] : 1990 32 From: Valentin Friend DO PCP: Dr. May Alicia, DO Status:[facility] Location: [place] [address] History and Physical Date of Admission: 12/13/22 DIANE DESHPANDE, is a 32 F who presents to the office today for 3 month f/u Crohn's and IBS. She loves her job. Was able to d/c lomotil. Was able to decrease colestipol from 2 g qhs to 1 g; next step is to try stopping colestipol. She has BM once daily, normal formed stool. Trying to reintroduce foods, had loose stool with salad but not diarrhea. No nausea or acid reflux.??? She continues to take pantoprazole. 03/2022 EGD showed small hiatal hernia, normal esophagus, erythema in antrum, patulous and incompetent pyloric sphincter, nonbleeding duodenal ulcers; biopsies showed chronic active gastritis, mild villous blunting in duodenum (celiac lab test negative), moderate chronic active inflammation and findings consistent with IBD in TI. 05/2022 Capsule Endoscopy: stomach ulcer, lots of inflammation in the small bowel Crohn's --moderate to severe, small bowel (per bx) and colon (elevated calprotectin).??? Symptoms began in high school in 2009, started with bright red blood per rectum. She was first treated with budesonide and azathioprine; she reports they weren't effective. Then in 2014 she had cholecystectomy; that surgeon told her she didn't have Crohn's so she stopped treatment. She felt ok for awhile but then in 2018 she started having more issues--severe diarrhea all the time . So she went to a GI doctor in [place] in 2019; he put her on Humira, she was always on it weekly, it helped but her symptoms never resolved, then it stopped working at all after about a year. She started Stelara in 04/2021. She has been treated with prednisone, twice since 2019. Had ankle fracture last yr that was attributed to steroid use. Bxs 03/2022: moderate chronic active inflammation and findings consistent with IBD in TI. 03/2022: She does not have antibodies to Stelara; Stelara level 3.3, which is low despite every 4 weeks.???05/2022 lab panel suggestive of Crohn's. ROS Const Constitutional: Positive for fatigue and headache(s) ENT ENT: Positive for headache(s); No difficulty swallowing Gastro GI: Positive for bloating, excessive flatus, nausea/dyspepsia and vomiting; No abdominal pain, belching, change in bowel habits, change in stool character, coffee ground emesis, constipation, cramping, diarrhea, heartburn, difficulty swallowing, feeling full early, incontinent of stools, Vomiting blood/hematemesis, Blood in stool, loose stools, Black,tarry stools, pain with swallowing or other Musc Musculoskeletal: Positive for joint pain, back pain, joint swelling, numbness, stiffness, tingling and Arthritis Skin Skin: No yellowing of the eye or itchy eyes Neuro Neurology: Positive for headache(s), numbness and tingling Psych Psychiatric: Positive for anxiety and No depression Endo Endocrine: Positive for fatigue Aller/Imm Allergy/Immunologic: No itchy eyes Luis/Lymp Hematologic/Lymphatic: No easy bleeding or easy bruising Exam Const General: cooperative and comfortable Nutritional Appearance: obese Orientation: alert, awake and oriented x3 Quality Reporting Tobacco Screening ([facility] 138) Smoking Status: Never smoker Assessment and Plan Assessment and Plan (1) Crohn's disease: Status: Chronic Plan: IBD significantly improved with job change. She was able to discontinue lomotil, was able to decrease colestipol from 2 g to 1 g nightly, she will try to d/c colestipol completely. Only needs dicyclomine prn now. Continue Stelara q4wks for now. Update labs for inflammation in blood and colon. Update endoscopies to eval for ongoing Crohn's. (2) IBS (irritable bowel syndrome): Status: Chronic Plan: as above Orders: Orders Comprehensive Metabolic Profil Today K50.90 - Crohn's disease, unspecified, without complications CRP Today K50.90 - Crohn's disease, unspecified, without complications CBC W/Diff, Automated Today K50.90 - Crohn's disease, unspecified, without complications Erythrocyte Sed Rate Today K50.90 - Crohn's disease, unspecified, without complications Calprotectin, Stool Today K50.90 - Crohn's disease, unspecified, without complications Stool Lactoferrin/WBC Today K50.90 - Crohn's disease, unspecified, without complications, K58.9 - Irritable bowel syndrome without diarrhea Medications: Discontinued diphenoxylate-atropine 2.5-0.025 mg (Lomotil) take 1 tab in the morning and 1 tab in the afternoon Discontinued Reason: Pt no longer taking 1 TAB PO BID 180 tabs 0RF diarrhea I have examined the patient and the H P has been reviewed. There are no clinical changes since date of exam. 12/13/22 0635 <Electronically signed by Valentin Whitmore DO> Cosigner Signature (if applicable): CC: Dr. May Alicia DO; Valentin Whitmore DO Signed May Alicia DO Work Phone: Start: 2022 End: 2022 Gastroenterology Visit Report Procedure Note: See Note; NOTES: [facility] Gastroenterology [address] [address] OFFICE VISIT Date of Service: 10/02/22 MR#: [id number] Acct: [id number] Name: DIANE DESHPANDE Rep #: [id number] : 1990 Provider: LANDY Hooks Age/Sex: 32/F Location[place] [facility] Status: Signed Intake Vital Signs 10/02/22 11:26 Height 5 ft 7 in Weight: 301 lb BMI 47.1 Intake Visit Reasons: 3 MO FU Chief Complaint: Crohn's Allergies No Known Allergies Allergy (Verified 10/02/22 11:25) Medications folic acid 0.8 mg capsule 0.8 mg PO DAILY 05/02/18 [History Confirmed 10/02/22] selenium 200 mcg capsule 200 mcg PO DAILY 05/02/18 [History Confirmed 10/02/22] norgestimate 0.25 mg-ethinyl estradiol 35 mcg tablet 1 ea PO DAILY 08/10/19 [History Confirmed 10/02/22] cyanocobalamin (vitamin B-12) 500 mcg tablet 1,000 mcg PO DAILY 08/24/19 [History Confirmed 10/02/22] cholecalciferol (vitamin D3) 25 mcg (1,000 unit) capsule 25 mcg PO DAILY 12/22/21 [History Confirmed 10/02/22] pantoprazole 40 mg tablet,delayed release 40 mg PO DAILY acid reflux #90 tabs 12/22/21 [Rx Confirmed 10/02/22] turmeric 400 mg capsule 400 mg PO DAILY 12/22/21 [History Confirmed 10/02/22] ustekinumab 90 mg/mL subcutaneous syringe (Stelara) 90 mg subcut Q4W #1 mL 12/22/21 [Rx Confirmed 10/02/22] colestipol 1 gram tablet 2 g PO QHS diarrhea #180 tabs 02/02/22 [Rx Confirmed 10/02/22] dicyclomine 20 mg tablet 20 mg PO BID abdominal cramping/pain #180 tabs 02/02/22 [Rx Confirmed 10/02/22] sucralfate 100 mg/mL oral suspension 10 ml PO QAC gastritis #1,000 mL 06/21/22 [Rx Confirmed 10/02/22] PFSH Medical History Anxiety Arthritis Crohn disease Depression Electrocution, initial encounter Gastric reflux Headache High cholesterol History of Crohn's disease History of GI bleed Injury of head and neck Injury of left shoulder Left shoulder strain Low back pain Malnutrition Migraine headache Mixed hyperlipidemia Non-smoker Painful defecation Proteinuria Radiculopathy, cervical region Thoracic myofascial strain Unspecified abdominal pain Vertigo Viral URI Vitamin B12 deficiency Wears contact lenses Surgical History H/O adenoidectomy History of cholecystectomy History of esophagogastroduodenoscopy (EGD) History of tonsillectomy Hx of colonoscopy Family History Grandmother Diabetes Asthma Grandfather Diabetes Heart disease Kidney disease Father Diabetes Mother Hypertension Other Thyroid disorder Social History (Reviewed 10/02/22 @ 11:25 by Nevin Marie Smoking Status: Never smoker alcohol intake: never HPI HPI Chief Complaint: Crohn's Details: DIANE DESHPANDE, is a 32 F who presents to the office today for 3 month f/u Crohn's and IBS. She loves her job. Was able to d/c lomotil. Was able to decrease colestipol from 2 g qhs to 1 g; next step is to try stopping colestipol. She has BM once daily, normal formed stool. Trying to reintroduce foods, had loose stool with salad but not diarrhea. No nausea or acid reflux.??? She continues to take pantoprazole. 03/2022 EGD showed small hiatal hernia, normal esophagus, erythema in antrum, patulous and incompetent pyloric sphincter, nonbleeding duodenal ulcers; biopsies showed chronic active gastritis, mild villous blunting in duodenum (celiac lab test negative), moderate chronic active inflammation and findings consistent with IBD in TI. 05/2022 Capsule Endoscopy: stomach ulcer, lots of inflammation in the small bowel Crohn's --moderate to severe, small bowel (per bx) and colon (elevated calprotectin).??? Symptoms began in high school in 2009, started with bright red blood per rectum. She was first treated with budesonide and azathioprine; she reports they weren't effective. Then in 2014 she had cholecystectomy; that surgeon told her she didn't have Crohn's so she stopped treatment. She felt ok for awhile but then in 2018 she started having more issues--severe diarrhea all the time . So she went to a GI doctor in [place] in 2019; he put her on Humira, she was always on it weekly, it helped but her symptoms never resolved, then it stopped working at all after about a year. She started Stelara in 04/2021. She has been treated with prednisone, twice since 2019. Had ankle fracture last yr that was attributed to steroid use. Bxs 03/2022: moderate chronic active inflammation and findings consistent with IBD in TI. 03/2022: She does not have antibodies to Stelara; Stelara level 3.3, which is low despite every 4 weeks.???05/2022 lab panel suggestive of Crohn's. ROS Const Constitutional: Positive for fatigue and headache(s) ENT ENT: Positive for headache(s); No difficulty swallowing Gastro GI: Positive for bloating, excessive flatus, nausea/dyspepsia and vomiting; No abdominal pain, belching, change in bowel habits, change in stool character, coffee ground emesis, constipation, cramping, diarrhea, heartburn, difficulty swallowing, feeling full early, incontinent of stools, Vomiting blood/hematemesis, Blood in stool, loose stools, Black,tarry stools, pain with swallowing or other Musc Musculoskeletal: Positive for joint pain, back pain, joint swelling, numbness, stiffness, tingling and Arthritis Skin Skin: No yellowing of the eye or itchy eyes Neuro Neurology: Positive for headache(s), numbness and tingling Psych Psychiatric: Positive for anxiety and No depression Endo Endocrine: Positive for fatigue Aller/Imm Allergy/Immunologic: No itchy eyes Luis/Lymp Hematologic/Lymphatic: No easy bleeding or easy bruising Exam Const General: cooperative and comfortable Nutritional Appearance: obese Orientation: alert, awake and oriented x3 Quality Reporting Tobacco Screening ([facility] 138) Smoking Status: Never smoker Assessment and Plan Assessment and Plan (1) Crohn's disease: Status: Chronic Plan: IBD significantly improved with job change. She was able to discontinue lomotil, was able to decrease colestipol from 2 g to 1 g nightly, she will try to d/c colestipol completely. Only needs dicyclomine prn now. Continue Stelara q4wks for now. Update labs for inflammation in blood and colon. Update endoscopies to eval for ongoing Crohn's. (2) IBS (irritable bowel syndrome): Status: Chronic Plan: as above Orders: Orders Comprehensive Metabolic Profil Today K50.90 - Crohn's disease, unspecified, without complications CRP Today K50.90 - Crohn's disease, unspecified, without complications CBC W/Diff, Automated Today K50.90 - Crohn's disease, unspecified, without complications Erythrocyte Sed Rate Today K50.90 - Crohn's disease, unspecified, without complications Calprotectin, Stool Today K50.90 - Crohn's disease, unspecified, without complications Stool Lactoferrin/WBC Today K50.90 - Crohn's disease, unspecified, without complications, K58.9 - Irritable bowel syndrome without diarrhea Medications: Discontinued diphenoxylate-atropine 2.5-0.025 mg (Lomotil) take 1 tab in the morning and 1 tab in the afternoon Discontinued Reason: Pt no longer taking 1 TAB PO BID 180 tabs 0RF diarrhea Coding Level of Care Code Off vis,est,level 3 Diagnoses Crohn's disease K50.90 IBS (irritable bowel syndrome) K58.9 10/02/22 1233 <Electronically signed by Theresa Hooks NP, NP-C> Date __ Theresa Hooks NP, NP-C Cosigner Signature: Date __ (if applicable) CC: Dr. May Alicia, DO May Alicia DO Work Phone: Start: 06-26-2022 End: 06-26-2022 Gastroenterology Visit Report Procedure Note: See Note; NOTES: [facility] [address] [place] [address] OFFICE VISIT Date of Service: 06/26/22 MR#: [id number] Acct: [id number] Name: DIANE DESHPANDE Rep #: [id number] : 1990 Provider: LANDY Hooks Age/Sex: 31/F [place] [facility] [place]: Signed Intake Vital Signs 03/26/22 09:59 06/26/22 07:54 Height 5 ft 7 in 5 ft 7 in Weight: 300 lb BMI 47.0 Intake Visit Reasons: 3 M FU Chief Complaint: Crohn's Allergies No Known Allergies Allergy (Verified 06/26/22 07:53) Medications folic acid 0.8 mg capsule 0.8 mg PO DAILY 05/02/18 [History Confirmed 06/26/22] selenium 200 mcg capsule 200 mcg PO DAILY 05/02/18 [History Confirmed 06/26/22] norgestimate 0.25 mg-ethinyl estradiol 35 mcg tablet 1 ea PO DAILY 08/10/19 [History Confirmed 06/26/22] cyanocobalamin (vitamin B-12) 500 mcg tablet 1,000 mcg PO DAILY 08/24/19 [History Confirmed 06/26/22] cholecalciferol (vitamin D3) 25 mcg (1,000 unit) capsule 25 mcg PO DAILY 12/22/21 [History Confirmed 06/26/22] pantoprazole 40 mg tablet,delayed release 40 mg PO DAILY acid reflux #90 tabs 12/22/21 [Rx Confirmed 06/26/22] turmeric 400 mg capsule 400 mg PO DAILY 12/22/21 [History Confirmed 06/26/22] ustekinumab 90 mg/mL subcutaneous syringe (Stelara) 90 mg subcut Q4W #1 mL 12/22/21 [Rx Confirmed 06/26/22] colestipol 1 gram tablet 2 g PO QHS diarrhea #180 tabs 02/02/22 [Rx Confirmed 06/26/22] dicyclomine 20 mg tablet 20 mg PO BID abdominal cramping/pain #180 tabs 02/02/22 [Rx Confirmed 06/26/22] diphenoxylate-atropine 2.5 mg-0.025 mg tablet (Lomotil) 1 tab PO BID diarrhea #180 tabs 02/02/22 [Rx Confirmed 06/26/22] sucralfate 100 mg/mL oral suspension 10 ml PO QAC gastritis #1,000 mL 06/21/22 [Rx Confirmed 06/26/22] PFSH Medical History Anxiety Arthritis Crohn disease Depression Electrocution, initial encounter Gastric reflux Headache High cholesterol History of Crohn's disease History of GI bleed Injury of head and neck Injury of left shoulder Left shoulder strain Low back pain Malnutrition Migraine headache Mixed hyperlipidemia Non-smoker Painful defecation Proteinuria Radiculopathy, cervical region Thoracic myofascial strain Unspecified abdominal pain Vertigo Viral URI Vitamin B12 deficiency Wears contact lenses Surgical History H/O adenoidectomy History of cholecystectomy History of esophagogastroduodenoscopy (EGD) History of tonsillectomy Hx of colonoscopy Family History Grandmother Diabetes Asthma Grandfather Diabetes Heart disease Kidney disease Father Diabetes Mother Hypertension Other Thyroid disorder Social History Smoking Status: Never smoker alcohol intake: never HPI HPI Chief Complaint: Crohn's Details: DIANE DESHPANDE, is a 31 F who presents to the office today for 3 month f/u Crohn's. She is feeling much better, thinks a lot of that is due to less stress with new job. Having one BM per day, stool is formed, no abd pain, no melena or hematochezia. She is on Stelara Q4wks, and continues to take colestipol 2 g at bedtime, dicyclomine 20 mg twice daily, and Lomotil 1 tab p.o. twice daily. Before switching to a new job she still had diarrhea and abdominal pain despite all of these medications. Recent sed rate is normal, CRP is elevated at 13 but that is an improvement. Fecal lactoferrin is positive, fecal calprotectin is pending. She does not have antibodies to Stelara. Stelara level 3.3, which is low despite every 4 weeks. We had discussed possibly changing medication to Skyrizi, however she wanted to wait and see how she felt over time, especially with changing jobs. She would like to continue with Stelara for the time being. She has no adverse effects to Stelara. No nausea or acid reflux. She continues to take pantoprazole. 03/2022 EGD showed small hiatal hernia, normal esophagus, erythema in antrum, patulous and incompetent pyloric sphincter, nonbleeding duodenal ulcers; biopsies showed chronic active gastritis, mild villous blunting in duodenum (celiac lab test negative), moderate chronic active inflammation and findings consistent with IBD in TI. 05/2022 Capsule Endoscopy: stomach ulcer, lots of inflammation in the small bowel Crohn's --moderate to severe, small bowel. Symptoms began in high school in 2009, started with bright red blood per rectum. She was first treated with budesonide and azathioprine; she reports they weren't effective. Then in 2014 she had cholecystectomy; that surgeon told her she didn't have Crohn's so she stopped treatment. She felt ok for awhile but then in 2018 she started having more issues--severe diarrhea all the time . So she went to a GI doctor in [place] in 2019; he put her on Humira, she was always on it weekly, it helped but her symptoms never resolved, then it stopped working at all after about a year. She started Stelara in 04/2021. She has been treated with prednisone, twice since 2019. Had ankle fracture last yr that was attributed to steroid use. ROS Const Constitutional: Positive for headache(s) and weakness; No fatigue ENT ENT: Positive for headache(s); No difficulty swallowing Gastro GI: Positive for bloating and excessive flatus; No abdominal pain, belching, change in bowel habits, change in stool character, coffee ground emesis, constipation, cramping, diarrhea, heartburn, difficulty swallowing, feeling full early, incontinent of stools, Vomiting blood/hematemesis, Blood in stool, loose stools, Black,tarry stools, nausea/dyspepsia, pain with swallowing, vomiting or other Musc Musculoskeletal: Positive for joint pain, back pain, joint swelling, muscle cramps, numbness, stiffness, tingling and Arthritis Skin Skin: No yellowing of the eye or itchy eyes Neuro Neurology: Positive for weakness, headache(s), numbness and tingling Psych Psychiatric: Positive for anxiety and No depression Endo Endocrine: No fatigue Aller/Imm Allergy/Immunologic: No itchy eyes Luis/Lymp Hematologic/Lymphatic: No easy bleeding or easy bruising Exam Const General: cooperative and comfortable Orientation: alert, awake and oriented x3 HENMT Head: normal to inspection Eyes Conjunctivae: conjunctivae normal Sclera: sclerae normal Resp Effort Inspection: normal respiratory effort Quality Reporting Tobacco Screening ([facility]) Smoking Status: Never smoker Assessment and Plan Assessment and Plan (1) Crohn's disease: Status: Chronic Plan: 31-year-old female with Crohn's disease of the small bowel and IBS. Significant improvement in symptoms since starting a new job, indicating improvement in IBS. Currently taking Stelara every 4 weeks, we will continue with this, but discussed that goal--in addition to control of sxs--is to have normal inflammatory markers, normal appearance on endoscopy, and negative biopsies. Will try backing off other meds--start by discontinuing lomotil. If no diarrhea, then next she can decrease colestipol to 1 g at HS, then stop it. Next would be to try going w/o dicyclomine, but may need it if IBS flares. She will send me updates via the portal. F/u 3 mos. (2) IBS (irritable bowel syndrome): Status: Chronic Plan: see above Coding Level of Care Code Off vis,est,level 3 Diagnoses Crohn's disease K50.90 IBS (irritable bowel syndrome) K58.9 06/26/22 0833 <Electronically signed by Theresa Hooks NP IMMIGRATION CASE WORKER-C> Date __ Theresa Hooks NP IMMIGRATION CASE WORKER-C Cosigner Signature: Date __ (if applicable) CC: Dr. May Alicia, DO May Alicia DO Work Phone: Start: 05-22-2022 End: 05-30-2022 Office Visit Report Procedure Note: See Note; NOTES: [facility] [address] [place], [place] [address] [address] OFFICE VISIT Date of Service: 05/22/22 MR#: [id number] Acct: [id number] Patient: DIANE DESHPANDE Rep #: [id number] : 1990 Provider: Valentin Whitmore DO Age/Sex: 31/F [place] [facility] [place]: Signed Intake Vital Signs 03/26/22 09:59 Height 5 ft 7 in Intake Visit Reasons: cap endo Chief Complaint: Crohn's Allergies No Known Allergies Allergy (Verified 05/01/22 15:58) Office Procedures Procedure Administration Route: PO Administration Location: [facility] Dispensed Units: 1 Capsule Lot Number: [id number] Expiration Date: 02/28/23 Capsule ID Number: [id number] Consent Form Signed: Yes Reason for Pill Capsule Endoscopy: Crohn's Disease Comments: Pt tolerated procedure well. All questiosn were awnsered. Pill Cam Billing-In Office: [id number] GI TRACT CAPSULE ENDOSCOPY 05/30/22 0630 <Electronically signed by Valentin Friend DO> Date __ Valentin Friend DO Cosigner Signature: Date __ (if applicable) CC: May Alicia DO Work Phone: Start: 05-14-2022 End: 05-15-2022 Abdomen Single View Procedure Note: See Note; NOTES: [facility] Imaging Services [address] [place] [address] Abdomen Single View MR#: [id number] Acct: [id number] Name: DIANE DESHPANDE Rep #: [id number] : 1990 F 31 From: Niraj rgean MD PCP: Dr. May Alicia, Status: REG CLI Study: Abdomen Single View Date of Exam: 05/14/22 Exam# [id number] Ordering Dr: Theresa Hooks IMMIGRATION CASE WORKER IMMIGRATION CASE WORKER-C STUDY: X-RAY - ABDOMEN/PELVIS REASON FOR EXAM: Female, 31 years old. Patency Capsule TECHNIQUE: Single AP view of the abdomen / pelvis. COMPARISON: None. __ FINDINGS: Normal visualized lung bases. There is a moderate amount of colonic fecal material. No radiopaque capsule is seen. The visualized liver, spleen and kidneys are grossly normal in size and morphology. Normal soft tissue structures. Normal visualized osseous structures. __ RAD/Abdomen Single View IMPRESSION: Moderate amount of fecal material is seen in the colon. Electronically Signed: Niraj Liriano MD at 11:10 EST Reading Location ID and State: [facility] / [place] , Service support , CC: IMMIGRATION CASE WORKER-C Theresa Hooks; Dr. May Alicia DO Gantry Crane Operator: Signed May Alicia DO Work Phone: Start: 05-03-2022 End: 05-03-2022 Abdomen/Pelvis WITH Contrast Procedure Note: See Note; NOTES: [facility] Imaging Services [address] [place] [address] Abdomen/Pelvis WITH Contrast MR#: [id number] Acct: [id number] Name: DIANE DESHPANDE Rep #: [id number] : 1990 F 31 From: Delroy Cruz MD PCP: Dr. May Alicia DO Status: REG CLI Study: Abdomen/Pelvis WITH Contrast Date of Exam: 06/24 Exam# [id number] Ordering Dr: Theresa Hooks NP IMMIGRATION CASE WORKER-C INDICATION: Crohn''s disease EXAMINATION: CT ABDOMEN AND PELVIS WITH CONTRAST - CT Abdomen And Pelvis W/ Contrast Injection TECHNIQUE: Helically acquired images were obtained of the abdomen and pelvis following IV contrast. A radiation dose optimization technique was used for this scan. IV Contrast dosage and agent: 100 cc Isovue-300 Oral contrast: None. COMPARISON: 07/28/2014 FINDINGS: LOWER CHEST: Lung bases are clear. No cardiomegaly or pericardial effusion. LIVER: Homogenous enlargement to 25 cm. No concerning focal mass. GALLBLADDER AND BILIARY TREE: Gallbladder absent. No intra- or extrahepatic biliary ductal dilation. PANCREAS: No focal cystic or solid mass. SPLEEN: Normal size without focal cystic or solid mass. ADRENAL GLANDS: No nodules. KIDNEYS AND URETERS: Normal renal size and position. No hydronephrosis. PERITONEUM: No ascites or free air. BOWEL: Normal appendix. No stomach or bowel distension. Normal terminal ileum. No focal inflammatory bowel changes. LYMPH NODES: No enlarged mesenteric or retroperitoneal lymph nodes. VESSELS: Aorta is non-dilated. URINARY BLADDER: Unremarkable. REPRODUCTIVE ORGANS: No pelvic masses. ABDOMINAL WALL: No discrete abdominal or pelvic wall hernia. BONES: No acute or aggressive bony abnormality. CT/Abdomen/Pelvis WITH Contrast IMPRESSION: No acute findings in the abdomen or pelvis. Electronically Signed: Delroy Cruz MD at 21:37 EST , CC: LANDY Hooks; Dr. May Alicia DO Gantry Crane Operator: Signed Mya Alicia DO Work Phone: Start: 05-01-2022 End: 05-01-2022 Shoulder min 2 Views Procedure Note: See Note; NOTES: [facility] Imaging Services [address] [place] [address] Shoulder min 2 Views MR#: [id number] Acct: [id number] Name: DIANE DESHPANDE Rep #: [id number] : 1990 F 31 From: Ravi Gary MD PCP: Dr. May Alicia DO Status: REG CLI Study: Shoulder min 2 Views Date of Exam: 05/01/22 Exam# [id number] Ordering Dr: Ramses Hastings STUDY: X-RAY - LEFT SHOULDER REASON FOR EXAM: Female, 31 years old. injury TECHNIQUE: 4 view(s) of the shoulder. COMPARISON: None. __ FINDINGS: Normal glenohumeral articulation. Normal acromioclavicular joint. Normal acromion. Normal humeral head and visualized proximal humerus. The soft tissue structures are unremarkable. Normal visualized pulmonary apex. __ RAD/Shoulder min 2 Views IMPRESSION: Normal x-ray examination of the shoulder. Electronically Signed: Ravi Gary MD at 16:51 EST , CC: CHINTAN Hastings; Dr. May Alicia DO Gantry Crane Operator: Signed May Alicia DO Work Phone: Start: 05-01-2022 End: 05-01-2022 Urgent Care Visit Report Procedure Note: See Note; NOTES: [facility] [address] [place] [address] OFFICE VISIT Date of Service: 05/01/22 MR#: [id number] Acct: [id number] Name: DIANE DESHPANDE Rep #: [id number] : 1990 Provider: CHINTAN jang Age/Sex: 31/F [place] [facility] Status: Signed Intake Vital Signs 05/01/22 15:55 BP 120/82 H Blood Pressure Location Lt brachial Position Sitting Respiration 20 H Pulse 113 H Pulse Source Monitor Temp 98.7 F Temp Source Temporal Pulse Oximetry (%) 99 Oxygen Delivery Method room air Intake Visit Reasons: [facility]WC/LEFT SHOULDER INJURY/[employer] EMPLOYEE Chief Complaint: Crohn's Allergies No Known Allergies Allergy (Verified 05/01/22 15:58) Medications folic acid 0.8 mg capsule 0.8 mg PO DAILY 05/02/18 [History Confirmed 05/01/22] selenium 200 mcg capsule 200 mcg PO DAILY 05/02/18 [History Confirmed 05/01/22] norgestimate 0.25 mg-ethinyl estradiol 35 mcg tablet 1 ea PO DAILY 08/10/19 [History Confirmed 05/01/22] cyanocobalamin (vitamin B-12) 500 mcg tablet 1,000 mcg PO DAILY 08/24/19 [History Confirmed 05/01/22] cholecalciferol (vitamin D3) 25 mcg (1,000 unit) capsule 25 mcg PO DAILY 12/22/21 [History Confirmed 05/01/22] pantoprazole 40 mg tablet,delayed release 40 mg PO DAILY acid reflux #90 tabs 12/22/21 [Rx Confirmed 05/01/22] turmeric 400 mg capsule 400 mg PO DAILY 12/22/21 [History Confirmed 05/01/22] ustekinumab 90 mg/mL subcutaneous syringe (Stelara) 90 mg subcut Q4W #1 mL 12/22/21 [Rx Confirmed 05/01/22] colestipol 1 gram tablet 2 g PO QHS diarrhea #180 tabs 02/02/22 [Rx Confirmed 05/01/22] dicyclomine 20 mg tablet 20 mg PO BID abdominal cramping/pain #180 tabs 02/02/22 [Rx Confirmed 05/01/22] diphenoxylate-atropine 2.5 mg-0.025 mg tablet (Lomotil) 1 tab PO BID diarrhea #180 tabs 02/02/22 [Rx Confirmed 05/01/22] sucralfate 100 mg/mL oral suspension 10 ml PO QAC gastritis #1,000 mL 03/28/22 [Rx Confirmed 05/01/22] PFSH Medical History (Updated 05/01/22 @ 16:09 by Ramses WOODSON, PA) Anxiety Arthritis Crohn disease Depression Electrocution, initial encounter Gastric reflux Headache High cholesterol History of Crohn's disease History of GI bleed Injury of head and neck Injury of left shoulder Left shoulder strain Low back pain Malnutrition Migraine headache Mixed hyperlipidemia Non-smoker Painful defecation Proteinuria Radiculopathy, cervical region Thoracic myofascial strain Unspecified abdominal pain Vertigo Viral URI Vitamin B12 deficiency Wears contact lenses Surgical History H/O adenoidectomy History of cholecystectomy History of esophagogastroduodenoscopy (EGD) History of tonsillectomy Hx of colonoscopy Family History Grandmother Diabetes Asthma Grandfather Diabetes Heart disease Kidney disease Father Diabetes Mother Hypertension Other Thyroid disorder Social History Smoking Status: Never smoker alcohol intake: never HPI HPI Chief Complaint: Crohn's Details: DIANE DESHPANDE, is a 31 F who presents to the office today for initial evaluation left shoulder. 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 She notes no loss of sensation or strength or range of motion to her left shoulder/upper back. She notes no left elbow or cervical complaints and no upper extremity radicular complaints. PMH NC. No other associated symptoms and no other alleviating/aggravating factors. ROS Const Constitutional: No other (as above) Exam Const General: cooperative, healthy appearing and no acute distress Orientation: alert, awake and oriented x3 HENMT Head: normal to inspection Neck Neck: normal visual inspection and full ROM Resp Effort Inspection: normal respiratory effort and able to speak in complete sentences Cardio Rate: tachycardic Pulses: radial pulses present Musc Thoracic/Lumbar Spine: thoracic and lumbar spine normal to inspection and paraspinal tenderness on the left in the upper thoracic (And trapezius/ rhombiod) Skin General: no rashes or lesions noted Neuro General: patient alert, patient awake, patient oriented x3 and gait normal Cognition: normal cognition Speech: speech normal Gait: normal gait Motor: muscle tone normal throughout Sensory Exam: no sensory deficits noted Extrem General: normal to inspection, full ROM (Left shoulder, cervical, thoracic), capillary refill normal and normal exam except as noted (Minimal discomfort appreciated with all left shoulder range of motion) Psych Appearance: grossly normal Mental Status: mental status grossly normal Mood: congruent mood Affect: normal affect Speech and Movement: speech and movement normal Attitude: cooperative Thought Process: normal Thought Content: normal Judgment: judgment good Coding Level of Care Code Off vis,new,level 3 Diagnoses Left shoulder strain S46.912A Thoracic myofascial strain S29.019A Assessment and Plan Assessment and Plan (1) Left shoulder strain: Status: Acute (2) Thoracic myofascial strain: Status: Acute Plan: Left shoulder radiographs taken today reveal no acute osseous pathology/dislocation per my review, pending radiologist interpretation at the time patient discharged. Return to work without restrictions as noted on today's [employer]. Rest, ice, HEP, NSAIDs as needed for symptomatic relief. [facility]-up with the [facility] on 05/08/2022, sooner should symptoms worsen or any other concerns develop; anticipate release at next follow-up. Patient states acknowledging understanding all the above. This note was generated with [employer] software. It may contain incorrect words, spelling, and punctuation that were not noted in checking the note before signing. Orders: Orders Shoulder min 2 Views Today S49.92XA - Unspecified injury of left shoulder and upper arm, initial encounter 05/01/22 0673 <Electronically signed by Ramses WOODSON> Date __ Ramses WOODSON Cosigner Signature: Date __ (if applicable) CC: May Alicia DO Work Phone: Start: 03-26-2022 End: 03-28-2022 Gastroenterology Visit Report Procedure Note: See Note; NOTES: [facility] Gastroenter[facility] [address] [place] [address] OFFICE VISIT Date of Service: 03/26/22 MR#: [id number] Acct: [id number] Name: DIANE DESHPANDE Rep #: [id number] : 1990 Provider: LANDY Hooks Age/Sex: 31/F [place] [facility] [place]: Signed Intake Vital Signs 12/22/21 09:22 03/12/22 09:54 03/26/22 09:59 Height 5 ft 7 in 5 ft 7 in 5 ft 7 in Weight: 298 lb BMI 46.6 BP 126/84 H Blood Pressure Location Rt brachial Position Sitting Pulse 80 Pulse Oximetry (%) 96 Oxygen Delivery Method room air Intake Visit Reasons: 2 WK FU Chief Complaint: Crohn's Allergies No Known Allergies Allergy (Verified 03/26/22 09:53) Medications folic acid 0.8 mg capsule 0.8 mg PO DAILY 05/02/18 [History Confirmed 03/26/22] selenium 200 mcg capsule 200 mcg PO DAILY 05/02/18 [History Confirmed 03/26/22] norgestimate 0.25 mg-ethinyl estradiol 35 mcg tablet 1 ea PO DAILY 08/10/19 [History Confirmed 03/26/22] cyanocobalamin (vitamin B-12) 500 mcg tablet 1,000 mcg PO DAILY 08/24/19 [History Confirmed 03/26/22] cholecalciferol (vitamin D3) 25 mcg (1,000 unit) capsule 25 mcg PO DAILY 12/22/21 [History Confirmed 03/26/22] pantoprazole 40 mg tablet,delayed release 40 mg PO DAILY acid reflux #90 tabs 12/22/21 [Rx Confirmed 03/26/22] turmeric 400 mg capsule 400 mg PO DAILY 12/22/21 [History Confirmed 03/26/22] ustekinumab 90 mg/mL subcutaneous syringe (Stelara) 90 mg subcut Q4W #1 mL 12/22/21 [Rx Confirmed 03/26/22] colestipol 1 gram tablet 2 g PO QHS diarrhea #180 tabs 02/02/22 [Rx Confirmed 03/26/22] dicyclomine 20 mg tablet 20 mg PO BID abdominal cramping/pain #180 tabs 02/02/22 [Rx Confirmed 03/26/22] diphenoxylate-atropine 2.5 mg-0.025 mg tablet (Lomotil) 1 tab PO BID diarrhea #180 tabs 02/02/22 [Rx Confirmed 03/26/22] PFSH Medical History Anxiety Arthritis Crohn disease Depression Electrocution, initial encounter Gastric reflux Headache High cholesterol History of Crohn's disease History of GI bleed Injury of head and neck Low back pain Malnutrition Migraine headache Mixed hyperlipidemia Non-smoker Painful defecation Proteinuria Radiculopathy, cervical region Unspecified abdominal pain Vertigo Viral URI Vitamin B12 deficiency Wears contact lenses Surgical History H/O adenoidectomy History of cholecystectomy History of esophagogastroduodenoscopy (EGD) History of tonsillectomy Hx of colonoscopy Family History Grandmother Diabetes Asthma Grandfather Diabetes Heart disease Kidney disease Father Diabetes Mother Hypertension Other Thyroid disorder Social History Smoking Status: Never smoker alcohol intake: never HPI HPI Chief Complaint: Crohn's Details: DIANE DESHPANDE, is a 31 F who presents to the office today for f/u EGD and colonoscopy which were indicated for moderate to severe Crohn's disease not adequately managed with Stelara q4wks. 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 Because her symptoms were not controlled on Stelara q8wks dosing, we increased to q4wks in 12/2021; the more frequent dosing is helpful--less pain, less urgency, not having dumping. 2 BMs per day on a good day, 3-4 on a bad day but that is improved. Some blood in stool last week, bright red, once. Still taking colestipol 2 grams at HS, has diarrhea if she doesn't take it. She has continued to take lomotil bid, doesn't typically forget it. She also takes dicyclomine 20 mg BID. Pantoprazole 40 mg daily, still has nausea but less often, no change in acid reflux--daily, in any position. EGD showed small hiatal hernia, normal esophagus, erythema in antrum, patulous and incompetent pyloric sphincter, nonbleeding duodenal ulcers; biopsies showed chronic active gastritis, mild villous blunting in duodenum (celiac lab test negative), moderate chronic active inflammation and findings consistent with IBD in TI. 12/2021 workup: Positive fecal lactoferrin, stool calprotectin 520, neg O P, neg C diff, neg enteric pathogens CRP 20, remainder of extensive biochemical w/u unremarkable Her labs showed a low level of Stelara while taking it q8wks; there were no antibodies to Stelara Crohn's -- Symptoms began in high school in 2009, started with bright red blood per rectum. She was first treated with budesonide and azathioprine; she reports they weren't effective. Then in 2014 she had cholecystectomy; that surgeon told her she didn't have Crohn's so she stopped treatment. She felt ok for awhile but then in 2018 she started having more issues--severe diarrhea all the time . So she went to a GI doctor in [place] in 2019; he put her on Humira, she was always on it weekly, it helped but her symptoms never resolved, then it stopped working at all after about a year. She started Stelara in 04/2021. She has been treated with prednisone, twice since 2019. Had ankle fracture last yr that was attributed to steroid use. 03/12/22 EGD and Colonoscopy Impression: ? - Normal esophagus. ? - Small hiatal hernia. ? - Erythematous mucosa in the antrum. Biopsied. ? - Multiple non-bleeding duodenal ulcers with no ? stigmata of bleeding. Biopsied. Impression: ? - The entire examined colon is normal. ? - Crohn's disease. Biopsied. ? Diffuse inflammation, moderate in severity and characterized by ? granularity, scarring and aphthous ulcerations was found in the distal ? ileum and in the terminal ileum.??? MICROSCOPIC DIAGNOSIS A. Pylorus, biopsy: Moderate chronic active gastritis. Negative H pylori B. Duodenum, biopsy: Fragments of duodenal mucosa with nonspecific chronic inflammation. B. Focal mild villous blunting is also noted. C. Terminal ileum, biopsy: Moderate chronic active inflammation. The findings are consistent with inflammatory bowel disease. MICROSCOPIC DESCRIPTION Slides are reviewed. C. The specimen shows fragments of small intestinal mucosa with focal ulceration, acute and chronic inflammatory cell infiltrates in the lamina propria, glandular distortion and cryptitis. Granulomas are not seen. No evidence of dysplasia ROS Const Constitutional: Positive for fatigue, headache(s) and weakness ENT ENT: Positive for headache(s); No difficulty swallowing Gastro GI: Positive for abdominal pain, bloating, diarrhea, heartburn, excessive flatus and nausea/dyspepsia; No belching, change in bowel habits, change in stool character, coffee ground emesis, constipation, cramping, difficulty swallowing, feeling full early, incontinent of stools, Vomiting blood/hematemesis, Blood in stool, loose stools, Black,tarry stools, pain with swallowing, vomiting or other Musc Musculoskeletal: Positive for joint pain, back pain, muscle cramps, numbness, stiffness, tingling and Arthritis Skin Skin: No yellowing of the eye or itchy eyes Neuro Neurology: Positive for weakness, headache(s), numbness and tingling Psych Psychiatric: Positive for anxiety and Positive for depression Endo Endocrine: Positive for fatigue Aller/Imm Allergy/Immunologic: No itchy eyes Luis/Lymp Hematologic/Lymphatic: No easy bleeding or easy bruising Exam Const General: cooperative, comfortable and no acute distress Orientation: alert, awake and oriented x3 HENMT Head: normal to inspection Eyes General: appearance normal, both eyes and all related structures Resp Effort Inspection: normal respiratory effort Quality Reporting Tobacco Screening ([facility] 138) Smoking Status: Never smoker Assessment and Plan Assessment and Plan (1) Crohn's disease: Status: Chronic Plan: We reviewed results from EGD and Colonoscopy Patulous and incompetent pyloric sphincter, may contribute to food passing undigested, ?adding to diarrhea Gastritis--will rx sucralfate x one month, continue PPI Crohn's--moderate chronic active inflammation found on biopsy in terminal ileum. Check stelara level this week just before due for next q4 wk inj; may need to add a medication or change. Needs colestipol still, as well as dicyclomine and lomotil. Non-celiac enteropathy (duodenal villous blunting) may be due to Crohn's or non-celiac gluten sensitivity or food allergies or other; she has tested negative for Celiac disease; will get food allergy labs; will ask pathologist if they can give more details re the villous blunting eg lymphocytes, neutrophils to see if that helps us understand etiology. f/u 3 mos (2) Gastritis and duodenitis: Status: Acute Plan: as above (3) Enteropathy: Status: Acute Plan: as above Orders: Orders CRP 03/26/22 K50.90 - Crohn's disease, unspecified, without complications Calprotectin, Stool 03/26/22 K50.90 - Crohn's disease, unspecified, without complications Stool Lactoferrin/WBC 03/26/22 K50.90 - Crohn's disease, unspecified, without complications, K58.9 - Irritable bowel syndrome without diarrhea Celiac Disease Profile 03/26/22 K50.90 - Crohn's disease, unspecified, without complications Miscellaneous Lab Procedure 03/26/22 K50.90 - Crohn's disease, unspecified, without complications Allergen, Rast Food Profile Today K63.9 - Disease of intestine, unspecified Allergen, Food Profile Today K63.9 - Disease of intestine, unspecified Coding Level of Care Code Off vis,est,level 4 Diagnoses Crohn's disease K50.90 Gastritis and duodenitis K29.90 Enteropathy K63.9 03/28/22 1638 <Electronically signed by Theresa Hooks NP IMMIGRATION CASE WORKER-C> Date __ Theresa Hooks NP IMMIGRATION CASE WORKER-C Cosigner Signature: Date __ (if applicable) CC: Dr. May Alicia, DO May Alicia DO Work Phone: Start: 03-13-2022 End: 03-13-2022 Office Visit Report Procedure Note: See Note; NOTES: [facility] [address] [place] [address] OFFICE VISIT Date of Service: 03/13/22 MR#: [id number] Acct: [id number] Patient: DIANE DESHPANDE Rep #: [id number] : 1990 Provider: CHINTAN Singh Age/Sex: 31/F [place] [facility] Status: Signed Employer Purchased Covid Test Note: Patient here today for Covid Testing, requested by their Employer. Assessment and Plan Assessment and Plan Orders: Orders POC Cepheid NEAL Cov-2 PCR EMP Today R05.9 - Cough, unspecified 03/13/22 1634 <Electronically signed by Sukhwinder WOODSON> Date __ Sukhwinder WOODSON Cosigner Signature: Date __ (if applicable) CC: May Alicia DO Work Phone: Start: 03-12-2022 End: 03-12-2022 Colonoscopy Report Procedure Note: See Note; NOTES: [facility] Medical Records Department [address] [place] [address] Colonoscopy Report MR#: [id number] Acct: [id number] Name: DIANE DESHPANDE Rep #: [id number] : 1990 31 From: Valentin Whitmore DO PCP: Dr. May Alicia DO Status:[facility] Patient Name: Diane Deshpande Procedure Date: 03/12/2022 11:13 AM Date of : 1990 Age: 31 Procedure: Colonoscopy Indications: Crohn's disease of the small bowel Providers: Valentin Whitmore DO Referring MD: May Alicia Medicines: Monitored Anesthesia Care Patient Profile: This is a 31 year old female. Refer to note in patient chart for documentation of history and physical. Patient has symptoms of chronic abdominal cramping, chronic abdominal distention and chronic epigastric abdominal pain. This patient has ileal Crohn's disease without perianal involvement is taking Stelara. Last Colonoscopy: within the past 3 years. Complications: No immediate complications. Procedure: Pre-Anesthesia Assessment: - Prior to the procedure, a History and Physical was performed, and patient medications and allergies were reviewed. The risks and benefits of the procedure and the sedation options and risks were discussed with the patient. All questions were answered and informed consent was obtained. Patient identification and proposed procedure were verified by the physician in the pre-procedure area. Mental Status Examination: alert and oriented. Airway Examination: normal oropharyngeal airway and neck mobility. Respiratory Examination: clear to auscultation. CV Examination: normal. Prophylactic Antibiotics: The patient does not require prophylactic antibiotics. Prior Anticoagulants: The patient has taken no previous anticoagulant or antiplatelet agents. ASA Grade Assessment: II - A patient with mild systemic disease. After reviewing the risks and benefits, the patient was deemed in satisfactory condition to undergo the procedure. The anesthesia plan was to use monitored anesthesia care (MAC). Immediately prior to administration of medications, the patient was re-assessed for adequacy to receive sedatives. The heart rate, respiratory rate, oxygen saturations, blood pressure, adequacy of pulmonary ventilation, and response to care were monitored throughout the procedure. The physical status of the patient was re-assessed after the procedure. After I obtained informed consent, the scope was passed under direct vision. Throughout the procedure, the patient's blood pressure, pulse, and oxygen saturations were monitored continuously. The colonoscope was introduced through the anus and advanced to the terminal ileum. The colonoscopy was performed without difficulty. The patient tolerated the procedure well. The quality of the bowel preparation was good. Scope In: 11:16:59 AM Scope Withdrawal Time 0 hours 11 minutes 34 seconds Scope Out: 11:32:29 AM Total Procedure Duration Time 0 hours 15 minutes 30 seconds Findings: The perianal and digital rectal examinations were normal. The colon (entire examined portion) appeared normal. No additional abnormalities were found on retroflexion. Diffuse inflammation, moderate in severity and characterized by granularity, scarring and aphthous ulcerations was found in the distal ileum and in the terminal ileum. Biopsies were taken with a cold forceps for histology. Verification of patient identification for the specimen was done. Estimated blood loss was minimal. Impression: - The entire examined colon is normal. - Crohn's disease. Biopsied. Recommendation: - Discharge patient to home. - Resume previous diet. - Continue present medications. - Await pathology results. - Repeat colonoscopy in 1 year for screening purposes. Procedure Code(s): --- Professional --- 89307, Colonoscopy, flexible; with biopsy, single or multiple CPT copyright 2017 [employer]. All rights reserved. The codes documented in this report are preliminary and upon lens grinder and polisher review may be revised to meet current compliance requirements. Valentin Whitmore DO 03/12/2022 11:46:40 AM This report has been signed electronically. Number of Addenda: 0 Note Initiated On: 03/12/2022 11:13 AM 03/12/22 1146 Date __ Valentin Whitmore DO Cosigner Signature: Date __ (if indicated) CC: Dr. May Alicia DO; Valentin Whitmore DO Date Dictated: 03/12/22 1113 Date Transcribed: Gantry Crane Operator: RF Signed May Alicia DO Work Phone: Start: 03-12-2022 End: 03-12-2022 EGD Report Procedure Note: See Note; NOTES: [facility] Medical Records Department [address] [place] [address] EGD Report MR#: [id number] Acct: [id number] Name: DIANE DESHPANDE Rep #: [id number] : 1990 31 From: Valentin Whitmore DO PCP: Dr. May Alicia DO Status:[facility] [place] Patient Name: Diane Deshpande Procedure Date: 03/12/2022 10:50 AM Date of : 1990 Age: 31 Procedure: Upper GI endoscopy Indications: Epigastric abdominal pain, Iron deficiency anemia Providers: Valentin Whitmore DO Referring MD: May Alicia Medicines: Monitored Anesthesia Care Patient Profile: This is a 31 year old female. Refer to note in patient chart for documentation of history and physical. Patient has symptoms of chronic abdominal cramping, chronic abdominal distention and chronic epigastric abdominal pain. Complications: No immediate complications. Procedure: Pre-Anesthesia Assessment: - Prior to the procedure, a History and Physical was performed, and patient medications and allergies were reviewed. The risks and benefits of the procedure and the sedation options and risks were discussed with the patient. All questions were answered and informed consent was obtained. Patient identification and proposed procedure were verified by the physician in the pre-procedure area. Mental Status Examination: alert and oriented. Airway Examination: normal oropharyngeal airway and neck mobility. Respiratory Examination: clear to auscultation. CV Examination: normal. Prophylactic Antibiotics: The patient does not require prophylactic antibiotics. Prior Anticoagulants: The patient has taken no previous anticoagulant or antiplatelet agents. ASA Grade Assessment: II - A patient with mild systemic disease. After reviewing the risks and benefits, the patient was deemed in satisfactory condition to undergo the procedure. The anesthesia plan was to use monitored anesthesia care (MAC). Immediately prior to administration of medications, the patient was re-assessed for adequacy to receive sedatives. The heart rate, respiratory rate, oxygen saturations, blood pressure, adequacy of pulmonary ventilation, and response to care were monitored throughout the procedure. The physical status of the patient was re-assessed after the procedure. After obtaining informed consent, the endoscope was passed under direct vision. Throughout the procedure, the patient's blood pressure, pulse, and oxygen saturations were monitored continuously. The colonoscope was introduced through the mouth, and advanced to the second part of duodenum. The upper GI endoscopy was accomplished without difficulty. The patient tolerated the procedure well. Scope In: 11:08:58 AM Scope Out: 11:13:28 AM Total Procedure Duration Time 0 hours 4 minutes 30 seconds Findings: The examined esophagus was normal. A small hiatal hernia was present. Patchy mildly erythematous mucosa without bleeding was found in the gastric antrum. Biopsies were taken with a cold forceps for histology. Verification of patient identification for the specimen was done. Estimated blood loss was minimal. The pyloric sphincter was also seen to be patulous and incompetent. Two non-bleeding superficial duodenal ulcers with no stigmata of bleeding were found in the duodenal bulb. The largest lesion was 6 mm in largest dimension. Biopsies were taken with a cold forceps for histology. Verification of patient identification for the specimen was done. Estimated blood loss was minimal. Impression: - Normal esophagus. - Small hiatal hernia. - Erythematous mucosa in the antrum. Biopsied. - Multiple non-bleeding duodenal ulcers with no stigmata of bleeding. Biopsied. Recommendation: - Discharge patient to home. - Resume previous diet. - Continue present medications. - Await pathology results. - Repeat upper endoscopy to check healing. - Return to GI office. Procedure Code(s): --- Professional --- 79666, Esophagogastroduodenoscopy, flexible, transoral; with biopsy, single or multiple CPT copyright 2017 [employer]. All rights reserved. The codes documented in this report are preliminary and upon lens grinder and polisher review may be revised to meet current compliance requirements. Valentin Whimtore DO 03/12/2022 11:40:04 AM This report has been signed electronically. Number of Addenda: 0 Note Initiated On: 03/12/2022 10:50 AM 03/12/22 1140 Date __ Valentin Whitmore DO Cosigner Signature: Date __ (if indicated) CC: Dr. May Alicia DO; Valentin Whitmore DO Date Dictated: 03/12/22 1050 Date Transcribed: Gantry Crane Operator: CATERINA Signed May Alicia DO Work Phone: Start: 03-12-2022 End: 03-12-2022 History and Physical Exam Procedure Note: See Note; NOTES: [facility] Medical Records Department [address] [place] [address] History Physical Exam 03/12/22 1053 MR#: [id number] Acct: [id number] Name: DIANE DESHPANDE Rep #: [id number] : 1990 31 From: Valentin Friend DO PCP: Dr. May Alicia, DO Status:[facility] Location: [place] [address] History and Physical Date of Admission: 03/12/22 DINAE DESHPANDE, is a 31 F who presents to the office today for 6 wk f/u Crohn's disease. Her symptoms were not at all controlled on Stelara q8wks dosing, so we increased to q4wks. She has had 2 doses since then, most recent dose today. Symptoms were severe diarrhea, blood per rectum, abdominal pain, nausea. She is doing better on meds we prescribed at her initial visit. Colestipol helps, takes 2 grams qpm, has diarrhea if she misses it. Less urgency with lomotil, taking BID. Abdominal pain is better in that it isn't constant, but can have severe twinges, starts RLQ then LLQ, taking dicyclomine 20 mg BID. Random nausea. Prescribed pantoprazole 40 mg qam for acid reflux and nausea. Less blood per rectum. No fecal incontinence since adding meds. 12/2021 workup: Positive fecal lactoferrin, stool calprotectin 520, neg O P, neg C diff, neg enteric pathogens CRP 20, remainder of extensive biochemical w/u is unremarkable Her labs showed a low level of Stelara while taking it q8wks; there were no antibodies to Stelara 03/12/22 endoscopy Symptoms began in high school in 2009, started with bright red blood per rectum. She was first treated with budesonide and azathioprine; she reports they weren't effective. Then in 2014 she had cholecystectomy; that surgeon told her she didn't have Crohn's so she stopped treatment. She felt ok for awhile but then in 2018 she started having more issues--severe diarrhea all the time . So she went to a GI doctor in [place] in 2019; he put her on Humira, she was always on it weekly, it helped but her symptoms never resolved, then it stopped working at all after about a year. She started Stelara in 04/2021. She had the induction dose here at [facility], then gives herself the q8wks SQ injection. She has a couple of weeks after injection when she feels better--stool isn't liquid, there is some form to it, but then regresses to the point when stool is liquid. She has had to leave work because of fecal incontinence. BMs are urgent. No relief with imodium. Has instant need for urgent BM if she bends over and presses on RUQ. Her last GI told her she has a narrowing in the right side. Last colonoscopy was 12/2020. She has been treated with prednisone, twice since 2019. Had ankle fracture last yr that was attributed to steroid use. She thinks there are family members with IBS but they don't seek medical care. Comorbidities include malabsorption, vitamin deficiencies, hyperlipidemia Past surgical history includes adenoidectomy, cholecystectomy, tonsillectomy ROS Const Constitutional: Positive for fatigue and headache(s) ENT ENT: Positive for headache(s); No difficulty swallowing Gastro GI: Positive for abdominal pain, bloating, diarrhea, excessive flatus and nausea/dyspepsia; No belching, change in bowel habits, change in stool character, coffee ground emesis, constipation, cramping, heartburn, difficulty swallowing, feeling full early, incontinent of stools, Vomiting blood/hematemesis, Blood in stool, loose stools, Black,tarry stools, pain with swallowing, vomiting or other Musc Musculoskeletal: Positive for joint pain, joint swelling, muscle cramps, muscle weakness, numbness, stiffness and tingling Skin Skin: No yellowing of the eye or itchy eyes Neuro Neurology: Positive for headache(s), numbness and tingling Psych Psychiatric: Positive for anxiety and Positive for depression Endo Endocrine: Positive for fatigue Aller/Imm Allergy/Immunologic: No itchy eyes Luis/Lymp Hematologic/Lymphatic: No easy bleeding or easy bruising Exam Const General: cooperative, comfortable and no acute distress Nutritional Appearance: obese Orientation: alert, awake and oriented x3 Quality Reporting Tobacco Screening ([facility] 138) Smoking Status: Never smoker Assessment and Plan Assessment and Plan (1) Crohn's disease: ?Status:???Chronic ?Plan: Continue Stelara q4wks Continue lomotil bid if needed, colestipol 2 g qpm, dicyclomine 20 mg bid and pantoprazole She is scheduled for endoscopy in early March with 2 wk f/u ? Medications: Refilled colestipol 2 grams (2 x 1 gram) PO QHS 180 tabs 1RF diarrhea ? dicyclomine 20 mg??? PO BID 180 tabs 1RF abdominal cramping/pain ? diphenoxylate-atropine 2.5-0.025 mg (Lomotil) ? take 1 tab in the morning and 1 tab in the afternoon 1 TAB??? PO BID 180 tabs 0RF diarrhea ? I have re-examined the patient. There are no clinical changes since date of exam. 03/12/22 1053 <Electronically signed by Valentin Whitmore DO> Cosigner Signature (if applicable): CC: Dr. May Alicia DO; Valentin Whitmore DO Signed May Alicia DO Work Phone: Start: 02-02-2022 End: 02-02-2022 Gastroenterology Visit Report Procedure Note: See Note; NOTES: [facility]enter[facility] [address] [place] [address] OFFICE VISIT Date of Service: 02/02/22 MR#: [id number] Acct: [id number] Name: DIANE DESHPANDE Rep #: [id number] : 1990 Provider: LANDY Hooks Age/Sex: 31/F [place] [facility] [place]: Signed Intake Vital Signs 02/02/22 09:02 Height 5 ft 7 in Weight: 295 lb BMI 46.2 BP 139/79 H Blood Pressure Location Rt brachial Position Sitting Pulse 92 Pulse Oximetry (%) 98 Oxygen Delivery Method room air Intake Visit Reasons: 6 WK FU Chief Complaint: Crohn's Allergies clotrimazole Allergy (Intermediate, Verified 02/02/22 09:00) Blurred Vision Medications folic acid 0.8 mg capsule 0.8 mg PO DAILY 05/02/18 [History Confirmed 02/02/22] selenium 200 mcg capsule 200 mcg PO DAILY 05/02/18 [History Confirmed 02/02/22] norgestimate 0.25 mg-ethinyl estradiol 35 mcg tablet 1 ea PO DAILY 08/10/19 [History Confirmed 02/02/22] cyanocobalamin (vitamin B-12) 500 mcg tablet 1,000 mcg PO DAILY 08/24/19 [History Confirmed 02/02/22] cholecalciferol (vitamin D3) 25 mcg (1,000 unit) capsule 25 mcg PO DAILY 12/22/21 [History Confirmed 02/02/22] pantoprazole 40 mg tablet,delayed release 40 mg PO DAILY acid reflux #90 tabs 12/22/21 [Rx Confirmed 02/02/22] turmeric 400 mg capsule mg PO 12/22/21 [History Confirmed 02/02/22] ustekinumab 90 mg/mL subcutaneous syringe (Stelara) 90 mg subcut Q4W #1 mL 12/22/21 [Rx Confirmed 02/02/22] colestipol 1 gram tablet 2 g PO QHS diarrhea #180 tabs 02/02/22 [Rx Confirmed 02/02/22] dicyclomine 20 mg tablet 20 mg PO BID abdominal cramping/pain #180 tabs 02/02/22 [Rx Confirmed 02/02/22] diphenoxylate-atropine 2.5 mg-0.025 mg tablet (Lomotil) 1 tab PO BID diarrhea #180 tabs 02/02/22 [Rx Confirmed 02/02/22] PFSH Medical History (Updated 02/02/22 @ 09:56 by Theresa Hooks IMMIGRATION CASE WORKER, IMMIGRATION CASE WORKER-C) Crohn disease Electrocution, initial encounter Headache Low back pain Malnutrition Mixed hyperlipidemia Painful defecation Proteinuria Radiculopathy, cervical region Unspecified abdominal pain Vertigo Viral URI Vitamin B12 deficiency Surgical History H/O adenoidectomy History of cholecystectomy History of tonsillectomy Family History Grandmother Diabetes Asthma Grandfather Diabetes Heart disease Kidney disease Father Diabetes Mother Hypertension Other Thyroid disorder Social History Smoking Status: Never smoker alcohol intake: never HPI HPI Chief Complaint: Crohn's Details: DIANE DESHPANDE, is a 31 F who presents to the office today for 6 wk f/u Crohn's disease. Her symptoms were not at all controlled on Stelara q8wks dosing, so we increased to q4wks. She has had 2 doses since then, most recent dose today. Symptoms were severe diarrhea, blood per rectum, abdominal pain, nausea. She is doing better on meds we prescribed at her initial visit. Colestipol helps, takes 2 grams qpm, has diarrhea if she misses it. Less urgency with lomotil, taking BID. Abdominal pain is better in that it isn't constant, but can have severe twinges, starts RLQ then LLQ, taking dicyclomine 20 mg BID. Random nausea. Prescribed pantoprazole 40 mg qam for acid reflux and nausea. Less blood per rectum. No fecal incontinence since adding meds. 12/2021 workup: Positive fecal lactoferrin, stool calprotectin 520, neg O P, neg C diff, neg enteric pathogens CRP 20, remainder of extensive biochemical w/u is unremarkable Her labs showed a low level of Stelara while taking it q8wks; there were no antibodies to Stelara 03/12/22 endoscopy Symptoms began in high school in 2009, started with bright red blood per rectum. She was first treated with budesonide and azathioprine; she reports they weren't effective. Then in 2014 she had cholecystectomy; that surgeon told her she didn't have Crohn's so she stopped treatment. She felt ok for awhile but then in 2018 she started having more issues--severe diarrhea all the time . So she went to a GI doctor in [place] in 2019; he put her on Humira, she was always on it weekly, it helped but her symptoms never resolved, then it stopped working at all after about a year. She started Stelara in 04/2021. She had the induction dose here at [facility], then gives herself the q8wks SQ injection. She has a couple of weeks after injection when she feels better--stool isn't liquid, there is some form to it, but then regresses to the point when stool is liquid. She has had to leave work because of fecal incontinence. BMs are urgent. No relief with imodium. Has instant need for urgent BM if she bends over and presses on RUQ. Her last GI told her she has a narrowing in the right side. Last colonoscopy was 12/2020. She has been treated with prednisone, twice since 2019. Had ankle fracture last yr that was attributed to steroid use. She thinks there are family members with IBS but they don't seek medical care. Comorbidities include malabsorption, vitamin deficiencies, hyperlipidemia Past surgical history includes adenoidectomy, cholecystectomy, tonsillectomy ROS Const Constitutional: Positive for fatigue and headache(s) ENT ENT: Positive for headache(s); No difficulty swallowing Gastro GI: Positive for abdominal pain, bloating, diarrhea, excessive flatus and nausea/dyspepsia; No belching, change in bowel habits, change in stool character, coffee ground emesis, constipation, cramping, heartburn, difficulty swallowing, feeling full early, incontinent of stools, Vomiting blood/hematemesis, Blood in stool, loose stools, Black,tarry stools, pain with swallowing, vomiting or other Musc Musculoskeletal: Positive for joint pain, joint swelling, muscle cramps, muscle weakness, numbness, stiffness and tingling Skin Skin: No yellowing of the eye or itchy eyes Neuro Neurology: Positive for headache(s), numbness and tingling Psych Psychiatric: Positive for anxiety and Positive for depression Endo Endocrine: Positive for fatigue Aller/Imm Allergy/Immunologic: No itchy eyes Luis/Lymp Hematologic/Lymphatic: No easy bleeding or easy bruising Exam Const General: cooperative, comfortable and no acute distress Nutritional Appearance: obese Orientation: alert, awake and oriented x3 Quality Reporting Tobacco Screening ([facility] 138) Smoking Status: Never smoker Assessment and Plan Assessment and Plan (1) Crohn's disease: Status: Chronic Plan: Continue Stelara q4wks Continue lomotil bid if needed, colestipol 2 g qpm, dicyclomine 20 mg bid and pantoprazole She is scheduled for endoscopy in early March with 2 wk f/u Medications: Refilled colestipol 2 grams (2 x 1 gram) PO QHS 180 tabs 1RF diarrhea dicyclomine 20 mg PO BID 180 tabs 1RF abdominal cramping/pain diphenoxylate-atropine 2.5-0.025 mg (Lomotil) take 1 tab in the morning and 1 tab in the afternoon 1 TAB PO BID 180 tabs 0RF diarrhea Coding Level of Care Code Off vis,est,level 3 Diagnoses Crohn's disease K50.90 02/02/22 0958 <Electronically signed by Theresa MARTINESC> Date __ Theresa Hooks NP, NP-C Cosigner Signature: Date __ (if applicable) CC: Dr. May Alicia, DO May Alicia DO Work Phone: Start: 12-22-2021 End: 12-23-2021 Gastroenterology Visit Report Procedure Note: See Note; NOTES: [facility] Gastroenterology [address] [place] [address] OFFICE VISIT Date of Service: 12/22/21 MR#: [id number] Acct: [id number] Name: DIANE DESHPANDE Rep #: [id number] : 1990 Provider: LANDY Hooks Age/Sex: 31/F [place] [facility] Status: Signed Intake Vital Signs 04/21/21 08:22 12/22/21 09:22 12/22/21 11:06 Height 5 ft 7 in 5 ft 7 in Weight: 193 lb BMI 30.2 BP 151/86 H 149/90 H 126/88 H Blood Pressure Location Rt brachial Position Sitting Sitting Respiration 18 Pulse 106 H 107 H Temp 96.7 F L Temp Source Temporal Pulse Oximetry (%) 99 98 Oxygen Delivery Method room air Intake Visit Reasons: Consult Chief Complaint: Crohn's Allergies clotrimazole Allergy (Intermediate, Verified 12/22/21 09:20) Blurred Vision Medications folic acid 0.8 mg capsule 0.8 mg PO DAILY 05/02/18 [History Confirmed 06/17/21] selenium 200 mcg capsule 200 mcg PO DAILY 05/02/18 [History Confirmed 06/17/21] norgestimate 0.25 mg-ethinyl estradiol 35 mcg tablet 1 ea PO DAILY 08/10/19 [History Confirmed 06/17/21] cyanocobalamin (vitamin B-12) 500 mcg tablet 1,000 mcg PO DAILY 08/24/19 [History Confirmed 06/17/21] cholecalciferol (vitamin D3) 25 mcg (1,000 unit) capsule 25 mcg PO DAILY 12/22/21 [History Confirmed 12/22/21] colestipol 1 gram tablet 2 g PO QHS diarrhea #60 tabs 12/22/21 [Rx Confirmed 12/22/21] dicyclomine 20 mg tablet 20 mg PO BID abdominal cramping/pain #60 tabs 12/22/21 [Rx Confirmed 12/22/21] diphenoxylate-atropine 2.5 mg-0.025 mg tablet (Lomotil) 1 tab PO BID diarrhea #60 tabs 12/22/21 [Rx Confirmed 12/22/21] pantoprazole 40 mg tablet,delayed release 40 mg PO DAILY acid reflux #90 tabs 12/22/21 [Rx Confirmed 12/22/21] turmeric 400 mg capsule mg PO 12/22/21 [History Confirmed 12/22/21] ustekinumab 90 mg/mL subcutaneous syringe (Stelara) 90 mg subcut Q4W #1 mL 12/22/21 [Rx Confirmed 12/22/21] PFSH Medical History Crohn disease Headache Low back pain Malnutrition Mixed hyperlipidemia Painful defecation Proteinuria Radiculopathy, cervical region Unspecified abdominal pain Vertigo Vitamin B12 deficiency Surgical History H/O adenoidectomy History of cholecystectomy History of tonsillectomy Family History Grandmother Diabetes Asthma Grandfather Diabetes Heart disease Kidney disease Father Diabetes Mother Hypertension Other Thyroid disorder Social History Smoking Status: Never smoker alcohol intake: never HPI HPI Chief Complaint: Crohn's Details: DIANE DESHPANDE, is a 31 F who presents to the office today to establish for Crohn's disease Symptoms began in high school in 2009, started with bright red blood per rectum. She was first treated with budesonide and azathioprine; she reports they weren't effective. Then in 2014 she had cholecystectomy; that surgeon told her she didn't have Crohn's so she stopped treatment. She felt ok for awhile but then in 2018 she started having more issues--severe diarrhea all the time . So she went to a GI doctor in [place] in 2019; he put her on Humira, she was always on it weekly, it helped but her symptoms never resolved, then it stopped working at all after about a year. She started Stelara in 04/2021. She had the induction dose here at [facility], then gives herself the q8wks SQ injection. She has a couple of weeks after injection when she feels better--stool isn't liquid, there is some form to it, but then regresses to the point when stool is liquid. She has had to leave work because of fecal incontinence. BMs are urgent. Last Stelara injection was December 01. No relief with imodium. She was having bloody stools past few wks. She has severe RUQ and RLQ abd pain. Can also have pain LUQ but less often. Occas takes tylenol but no relief. Has instant need for urgent BM if she bends over and presses on RUQ. Her last GI told her she has a narrowing in the right side. Last colonoscopy was 12/2020. She has nausea daily, wakes up with it, comes and goes throughout the day, goes to bed with it. No treatment for it. Sporadic vomiting, can be after eating, last time was a month ago, it happened twice that month. No certain foods trigger her symptoms. No heartburn, but she does have acid reflux which occurs about once a week, takes TUMS prn, never on Rx med for reflux. Appetite varies. Can get full quickly but that isn't consistent. She has been treated with prednisone, twice since 2019. Had ankle fracture last yr that was attributed to steroid use. She thinks there are family members with IBS but they don't seek medical care. Comorbidities include malabsorption, vitamin deficiencies, hyperlipidemia Past surgical history includes adenoidectomy, cholecystectomy, tonsillectomy ROS Const Constitutional: Positive for fatigue and headache(s) ENT ENT: Positive for headache(s); No difficulty swallowing Gastro GI: Positive for abdominal pain, bloating, change in bowel habits, diarrhea, heartburn, excessive flatus, nausea/dyspepsia and vomiting; No belching, change in stool character, coffee ground emesis, constipation, cramping, difficulty swallowing, feeling full early, incontinent of stools, Vomiting blood/hematemesis, Blood in stool, loose stools, Black,tarry stools, pain with swallowing or other Musc Musculoskeletal: Positive for joint pain, back pain, joint swelling, numbness, stiffness and tingling Skin Skin: No yellowing of the eye or itchy eyes Neuro Neurology: Positive for headache(s), numbness and tingling Psych Psychiatric: Positive for anxiety and No depression Endo Endocrine: Positive for fatigue Aller/Imm Allergy/Immunologic: No itchy eyes Luis/Lymp Hematologic/Lymphatic: No easy bleeding or easy bruising Exam Const General: cooperative Nutritional Appearance: obese HENMT Head: normal to inspection Eyes General: appearance normal, both eyes and all related structures Resp Effort Inspection: normal respiratory effort GI Inspection: normal to inspection Palpation: soft, no masses and tender in the epigastrum, in the LLQ, in the RLQ, in the LUQ and in the RUQ Skin General: no rashes or lesions noted Neuro Speech: speech normal Gait: normal gait Psych Mood: congruent mood Affect: normal affect Quality Reporting Tobacco Screening ([facility]) Smoking Status: Never smoker Assessment and Plan Assessment and Plan (1) Crohn's disease: Status: Chronic Plan: 31-year-old female with Crohn's disease currently being treated with Stelara (ustekinumab) 90 mg subcu q. 8 weeks. Her symptoms are not at all controlled on this current dosing regimen; she has severe diarrhea, blood per rectum, abdominal pain, nausea. Case was discussed in detail with Dr. Whitmore. Plan is to increase frequency of Stelara to every 4 weeks. To try to get some control of her diarrhea, which is causing her to miss work, we will have her take colestipol 2 g at bedtime, as well as Lomotil 1 tablet in the morning and 1 tablet in the afternoon. She can take dicyclomine 20 mg twice a day as needed for the intestinal cramping. We will do stool tests for infection and inflammation. Blood tests are ordered for inflammation, autoimmune disorders, ANCA, ustekinumab level and antibodies. Prescription for pantoprazole 40 mg every morning for her acid reflux, perhaps this will help with nausea also. She previously tried and failed budesonide, azathioprine, Humira weekly, prednisone. (2) Chronic diarrhea: Status: Chronic Orders: Orders Giardia Lamblia EIA 12/22/21 K50.90 - Crohn's disease, unspecified, without complications, K52.9 - Noninfective gastroenteritis and colitis, unspecified Comprehensive Metabolic Profil 12/22/21 K50.90 - Crohn's disease, unspecified, without complications CRP 12/22/21 K50.90 - Crohn's disease, unspecified, without complications LDH 12/22/21 K50.90 - Crohn's disease, unspecified, without complications CBC W/Diff, Automated 12/22/21 K50.90 - Crohn's disease, unspecified, without complications Erythrocyte Sed Rate 12/22/21 K50.90 - Crohn's disease, unspecified, without complications MAXINE Comprehensive Panel 12/22/21 K50.90 - Crohn's disease, unspecified, without complications Calprotectin, Stool 12/22/21 K50.90 - Crohn's disease, unspecified, without complications Stool Lactoferrin/WBC 12/22/21 K50.90 - Crohn's disease, unspecified, without complications ANCA 12/22/21 K50.90 - Crohn's disease, unspecified, without complications Celiac Disease Profile 12/22/21 K50.90 - Crohn's disease, unspecified, without complications Immunoglobulins G/A/M/E 12/22/21 K50.90 - Crohn's disease, unspecified, without complications DELORES + Protein Elect, Serum 12/22/21 K50.90 - Crohn's disease, unspecified, without complications ENTERIC PATHOGEN PANEL STOOL 12/22/21 K50.90 - Crohn's disease, unspecified, without complications, K52.9 - Noninfective gastroenteritis and colitis, unspecified, K58.9 - Irritable bowel syndrome without diarrhea CDIFF (PCR) 12/22/21 K50.90 - Crohn's disease, unspecified, without complications, K52.9 - Noninfective gastroenteritis and colitis, unspecified Ova and Parasites 8623 12/22/21 K50.90 - Crohn's disease, unspecified, without complications, K52.9 - Noninfective gastroenteritis and colitis, unspecified, K58.9 - Irritable bowel syndrome without diarrhea Miscellaneous Lab Procedure 12/22/21 K50.90 - Crohn's disease, unspecified, without complications Medications: New dicyclomine 20 mg PO BID 60 tabs 1RF abdominal cramping/pain colestipol 1 g PO BID 60 tabs 1RF diarrhea pantoprazole 40 mg PO DAILY 90 tabs 3RF acid reflux colestipol 2 grams (2 x 1 gram) PO QHS 60 tabs 1RF diarrhea diphenoxylate-atropine 2.5-0.025 mg (Lomotil) take 1 tab in the morning and 1 tab in the afternoon 1 TAB PO BID 60 tabs 0RF diarrhea ustekinumab (Stelara) 90 mg subcut Q4W 1 mL 12RF Discontinued hydrocodone-acetaminophen 5-325 mg Discontinued Reason: Pt no longer taking 1 TAB PO Q6H 3 days PRN 14 tabs 0RF pain S82.892A - Other fracture of left lower leg, initial encounter for closed fracture Coding Level of Care Code Off vis,new,level 4 Diagnoses Crohn's disease K50.90 Chronic diarrhea K52.9 12/23/21 1355 <Electronically signed by Theresa Hooks NP IMMIGRATION CASE WORKER-C> Date __ Theresa Hooks NP IMMIGRATION CASE WORKER-C Cosigner Signature: Date __ (if applicable) CC: Dr. May Alicia, DO May Alicia DO Work Phone: Start: 06-17-2021 End: 06-17-2021 Urgent Care Visit Report Comments: See Note; NOTES: [address] [address] OFFICE VISIT Date of Service: 06/17/21 MR#: [id number] Acct: [id number] Name: DIANE DESHPANDE Rep #: [id number] : 1990 Provider: CHINTAN Virk Age/Sex: 30/F [place] [facility] Status: Signed Intake Vital Signs 06/17/21 12:56 BP 128/84 H Blood Pressure Location Lt brachial Position Sitting Respiration 12 Pulse 136 H Pulse Source Palpation Temp 98.6 F Temp Source Temporal Pulse Oximetry (%) 96 Oxygen Delivery Method room air Intake Visit Reasons: SYMPTOMATIC/ COVID TEST Chief Complaint: stelara Allergies No Known Allergies Allergy (Verified 06/17/21 12:56) Medications folic acid 0.8 mg capsule 0.8 mg PO DAILY 05/02/18 [History Confirmed 06/17/21] selenium 200 mcg capsule 200 mcg PO DAILY 05/02/18 [History Confirmed 06/17/21] norgestimate-ethinyl estradiol 1 ea PO DAILY 08/10/19 [History Confirmed 06/17/21] cyanocobalamin (vitamin B-12) 1,000 mcg PO DAILY 08/24/19 [History Confirmed 06/17/21] hydrocodone-acetaminophen 1 tab PO Q6H PRN 3 Days #14 tab 02/23/21 [Rx Confirmed 06/17/21] walking boot #1 ea 02/23/21 [Rx Confirmed 06/17/21] PFSH Medical History Crohn disease Surgical History History of cholecystectomy History of tonsillectomy Family History Other Diabetes Hypertension Thyroid disorder Social History Smoking Status: Never smoker alcohol intake: never HPI HPI Chief Complaint: stelara Details: DIANE DESHPANDE, is a 30 F who presents to the office today for covid test. She had a covid test at the drive through for [facility] yesterday and it was negative but she was told by [employer] health that she needed retested. She has had symptoms x 2 days. Her boyfriend is currently sick with covid. She has congestion, post nasal drip, cough, body aches, fever no SOB. ROS Const Constitutional: No chills, fatigue or fever(s) ENT ENT: Positive for nasal congestion, sinus pressure, nasal discharge and sore throat; No ear or mastoid pain Resp Respiratory: Positive for cough; No shortness of breath or wheezing Gastro GI: No diarrhea, nausea/dyspepsia or vomiting Endo Endocrine: No fatigue Aller/Imm Allergy/Immunologic: No wheezing Exam Const General: cooperative and no acute distress Nutritional Appearance: underweight Orientation: alert, awake and oriented x3 HENMT Head: normocephalic and atraumatic Ears: hearing grossly normal bilaterally, external ears normal and TM's normal bilaterally Nose: external nose normal Throat: posterior oropharynx normal, tonsils normal and uvula midline Resp Effort Inspection: normal respiratory effort, able to speak in complete sentences, symmetric chest movement and no cough Auscultation: Bilateral: Clear to Auscultation Cardio Rate: regular rate Rhythm: regular rhythm Heart Sounds: no murmurs Results POC NEAL CoV-2 PCR POC NEAL CoV-2 PCR Not Detected Last Edit by Sadie Munoz on 06/17/21 13:09 FLU A B NEGATIVE Coding Level of Care Code Off vis,est,level 2 Diagnoses Viral URI J06.9 Assessment and Plan Assessment and Plan (1) Viral URI: Status: Acute Plan - CHINTAN Bentley: Viral URI-sick x3 days. Boyfriend currently has COVID. She took a home COVID test that was negative, that she then got a COVID test through our drive-through which was negative. Employee health had her get retested again today, it is negative today. Recommended supportive care only at this time it is likely viral. Further instructions per employee health regarding return to work. Past medical history of Crohn's disease Plan Details Other Orders: Orders: POC Rapid NEAL Cov-2 PCR Today Z11.52 06/17/21 1340 <Electronically signed by Goldy WOODSON> Date __ Goldy WOODSON Cosigner Signature: Date __ (if applicable) CC: May Ailcia DO Work Phone: Start: 02-22-2021 End: 02-23-2021 Emergency Department Summary Comments: See Note; NOTES: [facility] Medical Records Department [address] [place] [address] Emergency Department Summary 02/22/21 MR#: [id number] Acct: [id number] Name: DIANE DESHPANDE Rep #: [id number] : 1990 30 From: Greta Leahy MD PCP: Dr. May Alicia DO Status:DEP ER Location: ED HPI History of Present Illness Chief Complaint: Lower Extremity Injury Informant: patient Occured/Mechanism Mechanism/Context: Yes fall Onset/Context/Timing Onset: Today Current Severity: Moderate Maximum Severity: Moderate Narrative Narrative: Patient presents with left ankle injury after a fall. Patient states he was walking on the road when she stepped in a hole and rolled her left ankle causing her to fall. She has not been able to weight-bear on the left ankle since that time. She has abrasions noted to her right leg but otherwise denies any other injury. She did not strike her head. [facility] Medical History Crohn disease Home Medications folic acid 0.8 mg capsule 0.8 mg PO DAILY 05/02/18 [History Last Taken 08/24/19] selenium 200 mcg capsule 200 mcg PO DAILY 05/02/18 [History Last Taken 08/24/19] norgestimate-ethinyl estradiol 1 ea PO DAILY 08/10/19 [History Last Taken 08/24/19] cyanocobalamin (vitamin B-12) 1,000 mcg PO DAILY 08/24/19 [History Last Taken 08/24/19] hydrocodone-acetaminophen 1 tab PO Q6H PRN 3 Days #14 tab 02/23/21 [Rx Last Taken Unknown] Allergy/AdvReac Type Severity Reaction Status Date / Time No Known Allergies Allergy Verified 02/22/21 22:55 Family History Other Diabetes Hypertension Thyroid disorder Surgical History History of cholecystectomy History of tonsillectomy Social History Smoking Status: Never smoker alcohol intake: never ROS ROS ED Constitutional Constitutional ED: Denies chills or fever(s) Eyes Eyes: Denies change in vision ENT ENT ED: Denies sore throat Cardiovascular Cardiovascular: Denies chest pain Respiratory/Chest Respiratory/Chest: Denies cough or dyspnea Gastrointestinal Gastrointestinal: Denies abdominal pain, diarrhea or vomiting Genitourinary Genitourinary ED: Denies dysuria Musculoskeletal Musculoskeletal: Reports arthralgias; Denies back pain Integumentary Reports Abrasions Neurologic Neurologic: Reports paresthesias; Denies headache(s) or weakness Allergic/Immunologic Allergic/Immunologic ED: Denies urticaria EXAM Physical Exam Const Vital Signs: 02/22/21 22:53 Temperature 97.4 F L Temperature Source Temporal Pulse Rate 105 H Respiratory Rate 16 Blood Pressure 151/100 H Blood Pressure Mean 117 Pulse Ox 100 Oxygen Delivery Method Room Air Positive well nourished and well developed General Appearance ED: well developed HEENT Reports normocephalic and head/scalp atraumatic Eyes PERRL and EOMs intact bilaterally Neck supple Chest Wall inspection of chest normal and palpation of chest normal Resp normal respiratory effort and clear to auscultation bilaterally Cardio regular rate and regular rhythm GI normal to inspection, nondistended, normoactive bowel sounds Palpation: soft Extremity Extremity Narrative: Abrasions noted over the right sanchez. No bony tenderness with full range of motion. Tenderness of patient over the lateral malleolus of the left ankle with mild edema. No tenderness over the foot itself. Strong distal pulses. Patient can wiggle toes. No tenderness at the knee or hip on the left. Neuro oriented x3 Sensorium / Orientation: alert Psych mental status grossly normal MDM MDM MDM Narrative Medical decision making narrative: Patient was given 2 tabs of [place] for pain. Left ankle x-rays are obtained. Radiography Diagnostic Testing: Radiology Impression Ankle X-Ray 02/22/21 23:30 IMPRESSION: 1. Slightly displaced fracture of the lateral malleolus. 2. Extensive edema around the ankle, greatest over the lateral ankle. ASSESSMENT: ABNORMAL report - There are abnormal findings in this report which may be related or unrelated to the reason for the exam. Electronically Signed: Niranjan Hewitt MD at 23:52 EDT Tel , Service support , Treatment and Re-Evaluation Comments:: Left ankle x-ray reveals a Ferraro A distal fibula fracture. Radiologist interpretation is also reviewed. Test results discussed with the patient. She be placed in a walking boot and given crutches. She may weight-bear as tolerated. She will be given work restrictions. Discharge Plan Triage Chief Complaint: Lower Extremity Injury ED Provider: Greta Leahy Dx/Rx/DC Orders Clinical Impression: Ankle fracture, left Instructions: ED Ankle Fracture, Distal Fibula Prescriptions: New hydrocodone-acetaminophen 5-325 mg tablet 1 tab PO Q6H PRN (Reason: pain) 3 Days Qty: 14 RF: 0 No Action selenium 200 mcg capsule 200 mcg capsule 200 mcg PO DAILY RF: 0 folic acid 0.8 mg capsule 0.8 mg PO DAILY RF: 0 norgestimate-ethinyl estradiol 1 EACH tablet 1 ea PO DAILY RF: 0 cyanocobalamin (vitamin B-12) 500 MCG tablet 1,000 mcg PO DAILY RF: 0 Stand Alone Forms: Work Status Form Primary Care Provider: May Alicia Referrals: May Alicia DO [Primary Care Provider] - Devang Briones MD [STAFF PHYSICIAN] - 5-7 Days Disposition Disposition: Home, Self Care What to do if you have Problems For any increased pain, shortness of breath, bleeding, nausea or vomiting, chest pain, or any unexpected problems, contact your Primary Care Provider. Call [facility] ([phone]) or report to the closest Emergency Room. Call 911 if necessary. 02/23/21 0243 <Electronically signed by Greta Leahy MD> Cosigner Signature (if applicable): CC: Dr. May Alicia DO Signed May Alicia DO Work Phone: Start: 02-22-2021 End: 02-22-2021 Ankle min 3 Views Comments: See Note; NOTES: [facility] Imaging Services [address] [place] [address] Ankle min 3 Views MR#: [id number] Acct: [id number] Name: DIANE DESHPANDE Rep #: [id number] : 1990 F 30 From: Niranjan Hewitt MD PCP: Dr. May Alicia DO Status: PRE ER Study: Ankle min 3 Views Date of Exam: 02/22/21 Exam# [id number] Ordering Dr: Greta Leahy MD EXAM: XR Left Ankle Complete, 3 or More Views CLINICAL INDICATION: 30 years old, Female; injury TECHNIQUE: Frontal, lateral and oblique views of the left ankle. This report was created using [employer] report generation technology. COMPARISON: None. FINDINGS: Bones/joints: Slightly displaced fracture of the lateral malleolus. Preservation of the joint space. No sclerotic or destructive changes observed. Soft tissues: Extensive edema around the ankle, greatest over the lateral ankle. No radiopaque foreign body. RAD/Ankle min 3 Views IMPRESSION: 1. Slightly displaced fracture of the lateral malleolus. 2. Extensive edema around the ankle, greatest over the lateral ankle. ASSESSMENT: ABNORMAL report - There are abnormal findings in this report which may be related or unrelated to the reason for the exam. Electronically Signed: Niranjan Hewitt MD at 23:52 EDT Tel , Service support , CC: Dr. Greta Leahy MD; Dr. May Alicia DO Gantry Crane Operator: Signed May Alicia DO Work Phone: Start: 11-29-2020 End: 12-01-2020 MRI Abd WITH and W/O Contrast Comments: See Note; NOTES: [facility] Imaging Services [address] [address] MRI Abd WITH and W/O Contrast MR#: [id number] Acct: [id number] Name: DIANE DESHPANDE Rep #: [id number] : 1990 30 From: Leonardo Babcock MD PCP: Dr. May Alicia, DO Status: REG CLI Study: MRI Abd WITH and W/O Contrast Date of Exam: Exam# [id number] Ordering Dr: Lino Shepard EXAM: MR ABDOMEN AND PELVIS WITHOUT AND WITH INTRAVENOUS CONTRAST : 1990 CLINICAL INDICATION: [place], [place] -- MR ENTEROGRAPHY, Dr. Bonner TECHNIQUE: Multiplanar and multisequence MR images of the abdomen and pelvis without and with intravenous contrast. This report was created using [employer] report generation technology. CONTRAST: IV [id number], 1mg glucagon COMPARISON: None. FINDINGS: LOWER THORAX: Unremarkable. No pleural effusion. ABDOMEN: LIVER: Unremarkable. Normal morphology. No focal mass. GALLBLADDER AND BILE DUCTS: Unremarkable. No gallstones. No gallbladder distention or wall edema. No intra- or extrahepatic biliary ductal dilation. PANCREAS: Unremarkable. No focal cystic or solid mass. SPLEEN: Unremarkable. Normal size without focal cystic or solid mass. ADRENALS: Unremarkable. No nodules. KIDNEYS AND URETERS: Unremarkable. Normal renal size and position. No hydronephrosis. STOMACH AND BOWEL: 10 cm of the terminal ileum is thick walled and enhances with contrast consistent with the history of Crohn's disease. Large bowel and remainder of the small bowel appear normal. PELVIS: APPENDIX: No evidence of acute appendicitis. BLADDER: Unremarkable. REPRODUCTIVE: Unremarkable as visualized. No mass. ABDOMEN and PELVIS: INTRAPERITONEAL SPACE: Unremarkable. No ascites or other fluid collection. VASCULATURE: Unremarkable. Abdominal aorta is non-dilated. LYMPH NODES: No enlarged lymph nodes. MRI/MRI Abd WITH and W/O Contrast IMPRESSION: Terminal ileitis consistent with a history of Crohn's disease. No evidence of complication. at 1051 Reported and signed by: Leonardo Babcock MD Electronically Signed: Leonardo Babcock MD at 10:50 EDT Tel , Service support , CC: Dr. Lino Shepard MD; Dr. May Alicia DO Gantry Crane Operator: Signed May Alicia DO Work Phone: Start: 07-20-2020 End: 07-20-2020 Emergency Department Summary Comments: See Note; NOTES: [facility] Medical Records Department [address] [place] [address] Emergency Department Summary 07/20/20 MR#: [id number] Acct: [id number] Name: DIANE DESHPANDE Rep #: [id number] : 1990 29 From: Guillermo Doll DO PCP: Dr. May Alicia DO Status:REG ER History of Present Illness Chief Complaint: Dizziness Informant: Patient Narrative: 29-year-old female presenting with lightheadedness. She states that this is a new problem for her. She states that she is also been little for to eat and had weight gain of approximately 20 pounds. She called her PCP today to get an appointment however she was sent to the emergency room because her primary care physician thought she needed a blood transfusion. Patient states she has a history of Crohn's disease and has had intermittent black stools previously. She states her abdomen intermittently crampy however she has no new symptoms. Patient denies fever, chills, body aches, change in taste or smell, cough. She denies chest pain or shortness of breath. Patient does state that she is craving red meat, eating ice a lot. - Past Medical History (1) Crohn's disease Status: Chronic (2) Orthostatic hypotension Status: Chronic Past Medical History - Allergies and Home Meds Allergies/Adverse Reactions: Allergies No Known Allergies Allergy (Verified 08/24/19 18:56) Primary Care Physician: May Alicia DO [Primary Care Provider] - Prior records reviewed: Yes Past Medical History: - - Reviewed in problem list Surgical History: noncontributory Lives: Alone Smoking Status: Never smoker Alcohol: None Drugs: None Review of Systems General: Reports: - - Weight gain and slight fatigue as well as lightheadedness. Denies: Chills, Fever, Sweats Eyes: Denies: Visual changes - bilaterally, Diplopia ENT: Denies: Rhinorrhea, Sore throat Cardiovascular: Denies: Chest pain, Palpitations Respiratory: Denies: Dyspnea, Cough Gastrointestinal: Denies: Nausea, Vomiting Genitourinary: Denies: Dysuria, Hematuria Musculoskeletal: Denies: Myalgias, Arthralgias Skin: Denies: Rash, Abscess Neurological: Denies: Headache, Parasthesia, Numbness Psych: Denies: Depression, Anxiety Physical Exam Vital Signs/Narrative: Vital Signs Temp Pulse Resp BP Pulse Ox 07/20/20 15:02 97.5 F L 124 H 18 152/98 H 99 07/20/20 14:59 97.5 F L 124 H 18 152/98 H 99 Inital Vital Signs reviewed: Yes General: Well nourished, Well developed, No Acute Distress Head: Atraumatic Eyes: Perrl, EOMI. Negative for: Pale conjunctiva ENT: Moist mucous membranes, No rhinorrhea Cardiovascular: Regular rate, Regular rhythm Respiratory: No distress, CTA bilaterally Abdomen: Soft, Nontender, Nondistended Extremities: Nontender, No edema Skin: Normal color, No rash. Negative for: Cyanosis, Pallor Neurological: Alert, Oriented x3, Cranial nerves II-XII grossly intact Psychological: Normal affect, Normal Mood Diagnostic/Tx/Re-eval Laboratory Data 07/20/20 07/20/20 15:45 15:45 WBC 8.0 RBC 4.32 Hgb 13.3 Hct 39.6 MCV 91.7 MCH 30.8 MCHC 33.6 RDW Std Deviation 37.9 RDW Coeff of Sharmin 11.3 L Plt Count 302 MPV 10.0 Immature Gran % (Auto) 0.400 Neut % (Auto) 60.7 Lymph % (Auto) 29.2 O'Brien % (Auto) 7.8 Eos % (Auto) 1.4 Baso % (Auto) 0.5 Absolute Neuts (auto) 4.8 Absolute Lymphs (auto) 2.32 Nucleated RBC % 0 Sodium 140 Potassium 3.7 Chloride 108 H Carbon Dioxide 27.0 Anion Gap 5 BUN 7 Creatinine 0.56 Estim Creat Clear Calc 150.88 Est GFR (MDRD) Af Amer 166 Est GFR (MDRD) Non-Af 137 BUN/Creatinine Ratio 12.6 Glucose 125 H Calcium 8.5 Total Bilirubin 0.40 AST 15 ALT 26 Alkaline Phosphatase 67 Total Protein 7.2 Albumin 3.1 L Globulin 4.1 Albumin/Globulin Ratio 0.8 L TSH 1.07 - Medical Decision Making 29-year-old female presenting with lightheadedness. She states that her PCP told her to come in for a blood transfusion. Her orthostatic vitals are normal. She does not feel vertiginous dizziness and it is not reproducible. Patient does not have any headache or paresthesias. Patient has a stable gait and able to ambulate. She has no focal neurologic deficits or lateralizing signs or symptoms. Patient's CBC, CMP are normal. TSH is normal. Given negative work-up patient will be discharged home to follow-up with her PCP. Impression: 1. Lightheadedness ED Disposition - Plan for ED Patient: Disposition: Home or Assisted Living Instructions: ED Dizziness, Uncertain Cause Referrals: May Alicia DO [Primary Care Provider] - What to do if you have Problems For any increased pain, shortness of breath, bleeding, nausea or vomiting, chest pain, or any unexpected problems, contact your Primary Care Provider. Call [facility] ([phone]) or report to the closest Emergency Room. Call 911 if necessary. 07/20/20 4181 <Electronically signed by Guillermo Doll DO> Date __ Guillermo Doll DO Cosigner Signature (If Indicated): Date CC: DO May Morgan DO Work Phone: Start: 01-13-2020 End: 01-13-2020 MRI Abd WITH and W/O Contrast Comments: See Note; NOTES: [facility] Imaging Services [address] [place] [address] MRI Abd WITH and W/O Contrast MR#: [id number] Acct: [id number] Name: DIANE DESHPANDE Rep #: [id number] : 1990 F 29 From: Ravi armando MD PCP: Dr. May Ravin, DO Status: REG CLI Study: MRI Abd WITH and W/O Contrast Date of Exam: Exam# [id number] Ordering Dr: Lino Shepard STUDY: MRI ABDOMEN WITH AND WITHOUT CONTRAST REASON FOR EXAM: Female, 29 years old. Crohn''s disease, recheck. Medicated with HUMIRA, apparently not working. Abdominal pain. TECHNIQUE: Multisequence multiplanar MRI of the abdomen an pelvis was performed without and with IV contrast 25 mL Dotarem, with GLUCAGON administration 1 mg IV, enterography technique. COMPARISON: 08/10/2019 MRI abdomen, ultrasound abdomen 09/09/2014, CT abdomen and pelvis 07/28/2014 __ FINDINGS: Duodenum and jejunum: No apparent inflammation. Terminal ileum: There is mild thickening and hyperemia in the wall of the terminal ileum. Consistent with mild active terminal ileitis. Ascending and transverse colon: Normal cecum. Moderate circumferential thickening of the wall of the ascending colon into the hepatic flexure and involving the entire transverse colon and splenic flexure, mild hyperenhancement of the wall. Apparent mild hyperemia in the adjacent mesentery. Consistent with acute colitis. Descending colon: Much of the descending colon exhibits mild circumferential thickening of the wall and hyperemia of the wall, with mild apparent hyperemia in the adjacent mesentery. Consistent with mild acute colitis. Sigmoid colon: Diffusely, moderate circumferential thickening, prominent hyperenhancement of the wall, hyperemia in the immediately adjacent mesenteric vessels. Consistent with acute sigmoid colitis. Rectum: No evidence of acute proctitis. There is no ascites or free air. No other significant abdominopelvic pathology is evident. In comparison to prior imaging of 08/10/2019: There is a lesser degree of wall thickening and hyperemia in the distal ileum on today''s study. There is now increased involvement of the ascending colon, hepatic flexure, and proximal to mid transverse colon. There are similar features in the descending colon. There is worsening of both wall thickening and hyperenhancement in the sigmoid colon. __ MRI/MRI Abd WITH and W/O Contrast IMPRESSION: The distribution of terminal ileitis, and colitis is consistent with the patient''s underlying diagnosis of Crohn''s disease. Compared to prior imaging: There is diminished intensity of terminal ileitis on today''s study. The wall is only mildly thickened and mildly hyperemic. There is increased inflammation of the ascending and transverse colon. There is a stable degree of mild inflammation of the descending colon. There is increased inflammation of the entirety of the sigmoid colon. Electronically Signed: Ravi Bonner MD at 17:32 EDT Tel , Service support , CC: Dr. Lino Shepard MD; Dr. May Alicia DO Gantry Crane Operator: Signed May Alicia Start: 08-24-2019 End: 08-24-2019 Emergency Department Summary Comments: See Note; NOTES: [facility] Medical Records Department [address] [place] [address] Emergency Department Summary 08/24/19 1907 MR#: [id number] Acct: [id number] Name: DIANE DESHPANDE Rep #: [id number] : 1990 28 From: Chase Guzman MD PCP: May Alicia DO Status: REG ER History of Present Illness Chief Complaint: Syncope Detail of Chief Complaint: History of orthostatic hypotension confirmed by table tilt test Informant: Patient Onset: Today Context: Sudden Onset Timing: Intermittent Quality: Lightheaded, blood pressure 60 then passed out Location: [facility] Current Severity: - - Orthostatic symptoms have resolved Maximum Severity: Severe Worsened by: Not drinking as much fluids as instructed to and not putting salt on food Relieved by: Nothing Associated Symptoms: Pallor, nausea and loss of consciousness Narrative: Patient is a 28-year-old woman who was recently diagnosed with Crohn's disease and history of orthostatic hypotension. She had a positive table tilt test. She was instructed by planting material remover at [facility] to increase the salt in her food and drink more fluids. She has not been compliant. She is not on any steroid therapy. She states she was cleaning her room. She felt lightheaded. She checked her blood pressures that she has a portable blood pressure monitor. Her systolic pressure was 60. She states her lightheadedness got worse. She passed out. She was informed that she was pale. ELECTRICAL AND INSTRUMENTATION MECHANIC report was read. Blood pressure per ELECTRICAL AND INSTRUMENTATION MECHANIC was 198/93 with a heart rate of 102. Patient does report blood in her stool. She states she is had no increased blood or bowel movement. She denies thirst or dry mouth. She denies headache. Denies visual, ocular auditory symptoms. No trouble speech or swallowing. She denies chest pain or shortness of breath. She states her menses is due in less than 1 week. She is on control pills. She has no symptoms of . She denies any urologic symptoms. Prior similar symptoms: Yes Recent Illness/Hospitalization: No - Past Medical History (1) Orthostatic hypotension Status: Acute (2) Crohn's disease Status: Acute Past Medical History - Allergies and Home Meds Allergies/Adverse Reactions: Allergies No Known Allergies Allergy (Verified 08/24/19 18:56) Primary Care Physician: May Alicia DO [Primary Care Provider] - Prior records reviewed: Yes Lives: Alone Smoking Status: Never smoker Alcohol: None Drugs: None Review of Systems General: Denies: Chills, Fever, Malaise, Sweats, Weight loss Eyes: Denies: Visual changes - bilaterally, Blurred Vision - bilaterally ENT: Denies: Rhinorrhea, Sore throat Cardiovascular: Denies: Chest pain, Palpitations, Heart racing Respiratory: Denies: Dyspnea, Cough, Dyspnea on exertion Gastrointestinal: Reports: Abdominal pain - Nominal pain is chronic, Nausea, Hematochezia - Chronic. Denies: Vomiting, Diarrhea, Constipation, Melena, -, - Genitourinary: Denies: Dysuria, Hematuria, Frequency Musculoskeletal: Denies: Myalgias, Arthralgias, Neck pain, Back pain, Swelling, Extremity Pain, -, - Skin: Denies: Rash, Wounds Neurological: Denies: Headache, Weakness, Numbness Endocrine: Denies: Polyuria, Polydipsia Hematologic: Denies: Easy bruising, Easy bleeding Physical Exam Vital Signs/Narrative: Vital Signs 08/24/19 18:53 97.8 F 98 16 136/94 H 100 Inital Vital Signs reviewed: Yes General: Well nourished, Well developed, Obese, No Acute Distress Head: Normocephalic, Atraumatic Eyes: Perrl, EOMI. Negative for: Pale conjunctiva, Scleral icterus ENT: No rhinorrhea, Dry mucous membranes Neck: Supple, Nontender, No lymphadenopathy, No JVD Cardiovascular: Regular rate, Regular rhythm, No murmurs, Normal S1, Normal S2 Respiratory: No distress, CTA bilaterally, Chest nontender Abdomen: Soft, Nondistended, Normal bowel sounds, No masses, Tender. Negative for: Guarding, Rebound tenderness Rectal: Deferred Back: Nontender, Normal Inspection. Negative for: CVA tenderness, Spinal tenderness Extremities: - - Is are noted on the extremity. This may be secondary to blood work that she has had recently.. Negative for: Nontender, No edema Skin: Normal color, No rash Neurological: Alert, Oriented x3, Cranial nerves II-XII grossly intact, Normal Strength, Normal Sensation Psychological: Normal affect, Normal Mood Diagnostic/Tx/Re-eval Laboratory Results WBC 15.4 H RBC 4.57 Hgb 13.9 Hct 41.7 MCV 91.2 MCH 30.4 MCHC 33.3 RDW Std Deviation 38.5 RDW Coeff of Sharmin 11.8 Plt Count 326 MPV 10.6 Sodium 136 Potassium 4.1 Chloride 104 Carbon Dioxide 25.0 Anion Gap 7 BUN 12 Creatinine 0.74 Estim Creat Clear Calc 111.05 Est GFR (MDRD) Af Amer 120 Est GFR (MDRD) Non-Af 99 BUN/Creatinine Ratio 16.1 Glucose 111 H Calcium 9.1 H AND H is slightly higher than prior. Basic metabolic panel is unremarkable. Monitor without ectopy during her stay. - Medical Decision Making Clinically patient appears dehydrated. IV was established he was see 1 L of normal saline wide open. H AND H was obtained to assess hemoglobin since she is reporting blood in stool and compared to prior. Basic metabolic panel to assess electrolytes and BUN to creatinine ratio. ED Disposition - Plan for ED Patient: Disposition: Home or Assisted Living Diagnosis: Neurogenic orthostatic hypotension, Near syncope Instructions: NEAR SYNCOPE, Vasovagal, HYPOTENSION, Orthostatic Referrals: May Alicia, [Primary Care Provider] - As Needed Additional Instructions: You need to make sure you drink plenty of fluids and add salt to your diet as instructed by your planting material remover otherwise you may need to be placed on a steroid. What to do if you have Problems For any increased pain, shortness of breath, bleeding, nausea or vomiting, chest pain, or any unexpected problems, contact your Primary Care Provider. Call [facility] ([phone]) or report to the closest Emergency Room. Call 911 if necessary. 08/24/192053 <Electronically signed by Chase Guzman MD> Date __ Chase Guzman MD Cosigner Signature (If Indicated): Date __ CC: May Lawson Start: 08-10-2019 End: 08-21-2019 MRI Abd WITH and W/O Contrast Comments: See Note; NOTES: [facility] Imaging Services [address] [place] [address] MRI Abd WITH and W/O Contrast MR#: [id number] Acct: [id number] Name: DIANE DESHPANDE Rep #: [id number] : 1990 F 28 From: Ravi Gary MD PCP: May Alicia DO Status: REG CLI Study: MRI Abd WITH and W/O Contrast Date of Exam: 08/10/19 Exam# [id number] Ordering Dr: Lino Shepard MD STUDY: MRI ABDOMEN WITH AND WITHOUT CONTRAST REASON FOR EXAM: Female, 28 years old. abd pain, crohn''s, diarrhea -- gb removed TECHNIQUE: Standardized fat and water weighted pulse sequences were obtained in all 3 orthogonal planes post contrast administration. IV 24 ml dotarem and iv 1 mg glucagon was administered for the contrast portion of the examination. COMPARISON: None. __ FINDINGS: The visualized lung bases are unremarkable. The visualized portions of the heart are within normal limits. Normal liver. There are surgical clips in the gallbladder fossa consistent with a prior cholecystectomy. Normal spleen. Normal pancreas. Normal bilateral adrenal glands. Normal right kidney. Normal left kidney. Normal visualized stomach. 12 cm long segment of terminal ileum which demonstrates mild dilatation with loss of normal folds and circumferential mild wall thickening as well as mild fibrofatty proliferation consistent with chronic Crohn''s disease. However, no evidence of transmural inflammation, abscess, or fistula. Normal colon. There is non-visualization of the appendix. Normal abdominal aorta. Normal inferior vena cava. Normal retroperitoneum. Normal abdominal wall. Normal osseous structures. __ MRI/MRI Abd WITH and W/O Contrast IMPRESSION: Chronic Crohn''s disease of the terminal ileum with mild dilatation and circumferential wall thickening but no evidence of transmural inflammation, abscess, or fistula. Electronically Signed: Ravi Gary MD at 9:17 EDT Tel , Service support , CC: Lino Shepard MD; May Alicia DO Gantry Crane Operator: Signed May Alicia Start: 05-16-2018 End: 05-16-2018 Urgent Care Visit Report Comments: See Note; NOTES: [facility] [address] [place] [address] OFFICE VISIT Date of Service: 05/16/18 MR#: [id number] Acct: [id number] Name: DIANE DESHPANDE Rep #: [id number] : 1990 Provider: Sukhwinder WOODSON Age/Sex: 27/F Location: [facility] Status: Signed Intake Vital Signs05/16/18 Body Mass Index (BMI) 43.0 05/16/18 Height 5 ft 7 in Intake Visit Reasons: ELECTRICUTION/W[facility] Chief Complaint: [facility], ER F/U Allergies No Known Allergies Allergy (Verified 05/16/18 11:50) Medications folic acid 0.8 mg capsule 0.8 mg PO DAILY 05/02/18 [History Confirmed 05/16/18] selenium 200 mcg capsule 200 mcg PO DAILY 05/02/18 [History Confirmed 05/16/18] [facility] Medical History Crohn disease (Acute) Severe headache (Acute) Surgical History History of cholecystectomy (Acute) History of tonsillectomy (Acute) Family History Other Diabetes Hypertension Thyroid disorder Social History Smoking Status: Never smoker alcohol intake: never HPI HPI Chief Complaint: WC, ER F/U Details: DIANE DESHPANDE, is a 27 F who presents to [...] 1337 <Electronically signed by Sukhwinder WOODSON> Date __ Sukhwinder WOODSON Cosigner Signature: Date __ (if applicable) CC: May Alicia Start: 05-02-2018 End: 05-02-2018 Urgent Care Visit Report Comments: See Note; NOTES: [facility] [address] [place] [address] OFFICE VISIT Date of Service: 05/02/18 MR#: [id number] Acct: [id number] Name: DIANE DESHPANDE Rep #: [id number] : 1990 Provider: CHINTAN Vela Age/Sex: 27/F Location[place] [facility] Status: Signed Intake Vital Signs05/02/18 Body Mass Index (BMI) 43.0 05/02/18 Height 5 ft 7.5 in Intake Visit Reasons: [facility], ER F/U Chief Complaint: [facility], ER F/U Automatic Print Developer Required: No Accompanied by: Self Is patient in pain?: No Allergies No Known Allergies Allergy (Verified 05/02/18 13:18) Medications folic acid 0.8 mg capsule 0.8 mg PO DAILY 05/02/18 [History Confirmed 05/02/18] selenium 200 mcg capsule 200 mcg PO DAILY 05/02/18 [History Confirmed 05/02/18] PFSH Medical History Crohn disease (Acute) Severe headache (Acute) Surgical History History of cholecystectomy (Acute) History of tonsillectomy (Acute) Family History Other Diabetes Hypertension Thyroid disorder Social History Smoking Status: Never smoker alcohol intake: never HPI HPI Chief Complaint: [facility], ER F/U Details: DIANE DESHPANDE, is a 27 F who presents to the office today for f/u of electrical injury sustained Saturday04/30/2019. She was seen in the ER a [facility] initially. 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 and experienced quite [...] no acute distress Orientation: alert, oriented x3 [facility] Head: normal to inspection, normocephalic Ears: [...] left middle fingertip, remaining exam WNL) Coordination: xgipio-vy-uqjg test normal Extrem General: normal to inspection, [...] 1356 <Electronically signed by Jaimie WOODSON> Date __ Jaimie WOODSON Cosigner Signature: Date __ (if applicable) CC: May Alicia Start: 04-30-2018 End: 04-30-2018 Discharge Instruction Comments: See Note; NOTES: [facility] Medical Records Department [address] [place] [address] Discharge Instruction 04/30/18 2259 MR#: [id number] Acct: [id number] Name: DIANE DESHPANDE Rep #: [id number] : 1990 27 From: Elton Donaldson MD [...] your Primary Care Provider. Call [facility] ([phone]) or report to the closest Emergency Room. Call 911 if necessary. 04/30/18 2302 <Electronically signed by Elton Donaldson MD> Date __ Elton Donaldson MD Cosigner Signature (If Indicated): Date __ CC: May Mcclaineen Ravin Start: 04-30-2018 End: 04-30-2018 Emergency Department Summary Comments: See Note; NOTES: [facility] Medical Records Department [address] [place] [address] Emergency Department Summary 04/30/18 2257 MR#: [id number] Acct: [id number] Name: DIANE DESHPANDE Rep #: [id number] : 1990 From: Elton Donaldson MD PCP: May Alicia DO Status: PRE ER - ER Visit Summary Date of Service: 04/30/18 Chief Complaint: [] Fingertip shock History of Present Illness: The patient is a 27 F patient was plugging in an iPod and received a shock from electrical outlet here at [facility]. She works here felt a shock [...] to finger This note was generated with GadgetATM dictation software. It may contain incorrect words, [...] your Primary Care Provider. Call [facility] ([phone]) or report to the closest Emergency Room. Call 911 if necessary. 04/30/182 <Electronically signed by Elton Donaldson MD> Date __ Elton Donaldson MD Cosigner Signature (If Indicated): Date __ CC: May Lawson Start: 04-23-2018 End: 04-23-2018 Pelvic (Non ) Comments: See Note; NOTES: [facility] Imaging Services [address] [place] [address] Pelvic (Non ) MR#: [id number] Acct: [id number] Name: DIANE DESHPANDE Rep #: [id number] : 1990 F 27 From: Niraj Liriano MD PCP: May Alicia DO Status: REG CLI Study: Pelvic (Non ) Date of Exam: 04/23/18 Exam# [id number] Ordering Dr: Natalie Bacon MD STUDY: ULTRASOUND OF THE FEMALE PELVIS - COMPLETE REASON FOR EXAM: Female, 27 years old. Irregular menses. LMP: April 18, 2018. TECHNIQUE: Transvaginal TECHNICAL QUALITY: Adequate. COMPARISON: Comparison is made with prior examination dated July 08, 2014. __ FINDINGS: The uterus is anteverted and is [...] was 991 ml. Polycystic ovary disease: No. __ US/Pelvic (Non ) IMPRESSION: Small fundal fibroid. Electronically Signed: Niraj Liriano MD at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 Crane Operator: Signed May Alicia Start: 09-11-2014 End: 09-11-2014 Discharge Instruction Comments: See Note; NOTES: [facility] Medical Records Department [address] [place] [address] Discharge Instruction 09/11/14251 MR#: [id number] Acct: [id number] Name: DIANE DESHPANDE Rep #: [id number] : 1990 23 From: Aleksandar Pro MD PCP: May Alicia DO Status: REG ER ED Disposition - Plan for ED Patient: Disposition: Home Chief Complaint: Abd Pain Instructions: ED GALLSTONES w/ Colic (Presumed) Referrals: May Alicia DO [Primary Care Provider] - Ravi Larios MD [STAFF PHYSICIAN] - What to do if you have Problems For any increased pain, shortness of breath, bleeding, nausea or vomiting, chest pain, or any unexpected problems, contact your doctor. Call [facility] ) or report to the closest Emergency Room. Call 911 if necessary. 09/11/14252 <Electronically signed by Aleksandar Pro MD> Date __ Aleksandar Pro MD Cosigner Signature (If Indicated): Date CC: May Alicia DO May Alicia Start: 09-09-2014 End: 09-09-2014 Abdomen Limited Comments: See Note; NOTES: [facility] Imaging Services [address] [place] [address] Ultrasound Report MR#: [id number] Acct: [id number] Name: DIANE DESHPANDE Rep #: [id number] : 1990 F 23 From: Kwabena Kaufman DO PCP: May Alicia DO Status: REG CLI Study: Abdomen Limited Date of Exam: 09/09/14 Exam# [id number] Ordering Dr: Kofi Terry MD STUDY: ABDOMINAL ULTRASOUND - RIGHT UPPER QUADRANT REASON FOR VISIT: Female, 23 years old. Abdominal pain. TECHNIQUE: Ultrasound evaluation of the right upper quadrant was performed with real-time and static rock-scale imaging. TECHNICAL QUALITY: Adequate. COMPARISON: Abdominal ultrasound, August 19, 2014. CT of the abdomen and pelvis, July 28 2014. __ FINDINGS: Liver: The liver is enlarged, measures 17.6 cm. There is normal echogenicity of the liver. The bile ducts are within normal limits. There is hepatic color flow. The direction of portal flow is hepatopetal. There is no demonstrated mass lesion. Gallbladder: Normal distended gallbladder. The gallbladder wall measures 1.6 mm. There is a negative sonographic Arriaga's sign. There is no pericholecystic fluid. There appears be a 4 mm soft tissue density within the gallbladder lumen thought to represent a polyp. A non-mobile noncalcified stone or tumefactive sludge cannot be ruled out. Common Bile Duct (C.B.D.): The common bile duct measures 4.8 mm. There are no filling defects. Pancreas: Normal size of the head, body and tail of the pancreas. There is normal echogenicity of the pancreas. There is no demonstrated pancreatic mass or cyst. Right Kidney: Normal size of the right kidney. The right kidney measures 10.9 cm. Normal renal cortex. The right cortex measures 1.5 cm. There is no demonstrated renal mass or cyst. There is no right hydronephrosis. __ IMPRESSION: 1. Stable hepatomegaly. There is no focal mass. 2. Question small gallbladder polyp versus noncalcified stone versus tumefactive sludge. 3. No other sonographic evidence of abdominal abnormality. Electronically Signed: Kwabena Kaufman DO at 11:11 EDT Tel [phone], Service support [phone], CC: May Alicia DO; Kofi Terry Gantry Crane Operator: Signed May Alicia Start: 08-19-2014 End: 08-19-2014 Abdomen Limited Comments: See Note; NOTES: [facility] Imaging Services [address] [place] [address] Ultrasound Report MR#: [id number] Acct: [id number] Name: DIANE DESHPANDE Rep #: [id number] : 1990 F 23 From: Rashel Sol MD PCP: May Alicia DO Status: REG CLI Study: Abdomen Limited Date of Exam: 08/19/14 Exam# [id number] Ordering Dr: Kofi Terry MD STUDY: LIMITED ULTRASOUND OF THE LEFT UPPER QUADRANT REASON FOR EXAM: Female, 23 years old. Abdominal pain RADIATION DOSAGE (If Supplied By Facility): CTDIvol = ( ) mGy, DLP = ( ) mGycm TECHNIQUE: Transabdominal ultrasound COMPARISON: CT scan from 07/28/14 __ FINDINGS: Spleen measures 11.8 x 6.1 x 5.8 cm. There is homogeneous echotexture no discrete lesion is identified. Left kidney measures 12.2 x 5.7 x 6.2 cm. No obstruction or solid mass. Cortical thickness is normal at 2.1 cm. There is a simple 1 cm cyst. __ IMPRESSION: 1 cm simple left renal cyst otherwise unremarkable study Electronically Signed: Tanmay Sol MD at 10:56 EDT Tel , Service support [phone], CC: May Alicia DO; Kofi Terry Gantry Crane Operator: Signed May Alicia Start: 08-11-2014 End: 08-11-2014 Emergency Department Summary Comments: See Note; NOTES: [facility] Medical Records Department [address] [place] [address] Emergency Department Summary MR#: [id number] Acct: [id number] Name: DIANE DESHPANDE Rep #: [id number] : 1990 23 From: Greta Leahy MD PCP: May Alicia DO Status: DEP ER DATE OF SERVICE: 08/10/2014 CHIEF COMPLAINT: Abdominal pain. WALTER HISTORY: The patient is a 23-year-old female with a 2-month history of abdominal pain. It is cramping, aching. She has had diarrhea with blood in her stool. She just had a repeat colonoscopy last week by Dr. Terry and per the office note the Crohn is worsening. She states that she is not getting any improvement with her current medications. She is not currently on steroids. The only pain medication she is taking is one tablet of tramadol every 6 hours. She was sent over from the PCP's office today. PHYSICAL EXAMINATION: VITAL SIGNS: Blood pressure is 151/84, temperature 99.3, heart rate 118, respiratory rate is 16, and pulse oximetry 98% on room air. GENERAL: The patient is sitting upright in bed in no acute distress. She is nontoxic appearing. HEART: Regular. LUNGS: Clear. ABDOMEN: Soft with mild right mid abdominal tenderness. There is no guarding or rebound. She has hypoactive, but present bowel sounds. HOSPITAL COURSE: The patient was given Dilaudid, Zofran and fluids. CBC and chemistry studies are unremarkable. LFTs and lipase are normal. Urinalysis is negative. test is negative. On repeat evaluation, she is resting comfortably. She states her pain still at 6. She will be redosed with another 0.5 mg of Dilaudid and given prednisone. She will be given some Percocet for home as well. DISPOSITION: Discharge. IMPRESSION: Crohn's exacerbation. Greta Leahy MD T: NTS JOB: [id number] 08/11/14 0007 <Electronically signed by Greta Leahy MD> Date __ Greta Leahy MD CC: May Alicia DO Date Dictated: 08/10/141830 Date Transcribed: 08/10/141830 Gantry Crane Operator: Signed May Alicia Start: 08-10-2014 End: 08-10-2014 Discharge Instruction Comments: See Note; NOTES: [facility] Medical Records Department [address] [place] [address] Discharge Instruction 08/10/141827 MR#: [id number] Acct: [id number] Name: DIANE DESHPANDE Rep #: [id number] : 1990 23 From: Greta Leahy MD PCP: May Alicia DO Status: REG ER ED Disposition - Plan for ED Patient: Disposition: Home Chief Complaint: Abd Pain Instructions: ED Crohn's Disease Prescriptions: Oxycodone HCl/Acetaminophen [Percocet 5/325] 1 - 2 tablet PO Q4H PRN PRN #20 tablet PRN Reason: Pain PredniSONE 60 mg PO DAILY #15 tablet Referrals: Kofi Terry MD [STAFF PHYSICIAN] - 5-7 Days What to do if you have Problems For any increased pain, shortness of breath, bleeding, nausea or vomiting, chest pain, or any unexpected problems, contact your doctor. Call [facility] ( [phone]) or report to the closest Emergency Room. Call 911 if necessary. 08/10/141831 <Electronically signed by Greta Leahy MD> Date __ Greta Leahy MD Cosigner Signature (If Indicated): Date CC: May Alicia DO May Alicia Start: 07-28-2014 End: 07-29-2014 Abdomen/Pelvis WITH Contrast Comments: See Note; NOTES: [facility] Imaging Services [address] [place] [address] CAT Scan Report MR#: [id number] Acct: [id number] Name: DIANE DESHPANDE Rep #: [id number] : 1990 F 23 From: Kenyetta Cherry MD PCP: May Alicia DO Status: REG CLI Study: Abdomen/Pelvis WITH Contrast Date of Exam: 07/28/14 Exam# [id number] Ordering Dr: Madeleine Arreola STUDY: CT ABDOMEN AND PELVIS WITH CONTRAST REASON FOR EXAM: Female, 23 years old. Abdominal pain RADIATION DOSAGE (If Supplied By Facility): CTDIvol = ( 23.23 ) mGy, DLP = ( 2663.71 ) mGycm TECHNIQUE: Transaxial images were obtained from the dome of the diaphragm to the symphysis pubis with oral contrast. 100CC ml of Isovue 300 contrast was administered. Sagittal and coronal images were reconstructed. COMPARISON: Abdominal ultrasound from July 08, 2014. __ FINDINGS: The visualized lung bases are unremarkable. The visualized portions of the heart are within normal limits. Normal liver. Normal gallbladder and extrahepatic biliary system. Normal spleen. Normal pancreas. Normal bilateral adrenal glands. Normal right kidney. There is a 1.1 x 1.0 cm cyst of the mid pole of the left kidney. Normal visualized stomach. There is a filling defect of the lumen of a jejunal loop. Normal colon. The appendix is visualized and appears normal. Normal abdominal aorta. Normal inferior vena cava. Normal retroperitoneum. Normal urinary bladder. Normal abdominal wall. Normal osseous structures. __ IMPRESSION: 1.1 x 1.0 cm cyst of the mid pole of the left kidney. Filling defect of the lumen of a jejunal loop suggesting artifact or intussusception. Clinical correlation is advised. Electronically Signed: Kenyetta Renae MD at 8:04 EST , Service support [phone], CC: Madeleine Arreola; May Alicia DO Gantry Crane Operator: Signed Madeleine Arreola Work Phone: Start: 07-12-2014 End: 07-12-2014 Hepatobilliary Imaging Comments: See Note; NOTES: [facility] Imaging Services [address] [place] [address] Nuclear Medicine Report MR#: [id number] Acct: [id number] Name: DIANE DESHPANDE Rep #: [id number] : 1990 F 23 From: Ravi Arellano DO PCP: May Alicia DO Status: REG CLI Study: Hepatobilliary Imaging Date of Exam: 07/12/14 Exam# [id number] Ordering Dr: Madeleine Arreola CLINICAL: 23-year-old female with reported history of abdominal pain and nausea. RADIONUCLIDE HEPATOBILIARY SCINTIGRAPHY COMPARISON: Abdominal ultrasound report 07/08/14 FINDINGS: Following the intravenous administration of 5.4 mCi of Tc Mebrofenin, hepatobiliary images reveal: 1. Relatively prompt and homogeneous radiopharmaceutical concentration is noted by a normal sized liver. No parenchymal defects are identified. 2. Gallbladder activity is identified at 75 minutes post radiopharmaceutical administration. 3. Small intestinal tract is observed at 30 minutes following tracer injection. 4. Washout of the radiopharmaceutical by the hepatic parenchyma appears qualitatively normal. Cholecystokinin (0.02 ug/kg) was administered intravenously over a 30-minute period. The post CCK gallbladder ejection fraction calculated at 20 minutes following Cholecystokinin administration was noted to be 44.1 % (normal greater than 35%). During 30 minutes of post CCK imaging, there is no scintigraphic evidence of reflux of the radiotracer into the common hepatic duct or refilling of the gallbladder. There is scintigraphic evidence of post CCK duodenal gastric reflux. IMPRESSION: 1. A gallbladder ejection fraction calculated to be greater than 35% following the administration of Cholecystokinin makes the probability of functional hepatobiliary disease (gallbladder and/or sphincter of Oddi dyskinesia) and/or organic hepatobiliary disease (chronic acalculous cholecystitis and/or cystic duct syndrome) to be low. (Luisana Galloway et al, Journal of Nuclear Medicine 32:1695, 1990). 2. There is scintigraphic evidence of post CCK duodenal-gastric reflux. (Tiffany et al, Nucl Med Donna Izabela Press pg. 35, 1980). Electronically Signed: Ravi Arellano DO at 23:03 EST Tel [phone], Service support [phone], CC: Madeleine Arreola; May Alicia DO Gantry Crane Operator: Signed Madeleine Arreola Work Phone: Start: 07-08-2014 End: 07-08-2014 Abdomen Complete Comments: See Note; NOTES: [facility] Imaging Services [address] [place] [address] Ultrasound Report MR#: [id number] Acct: [id number] Name: DIANE DESHPANDE Rep #: [id number] : 1990 F 23 From: Niraj Liriano MD PCP: May Alicia DO Status: REG CLI Study: Abdomen Complete Date of Exam: 07/08/14 Exam# [id number] Ordering Dr: Madeleine Arreola STUDY: ABDOMINAL ULTRASOUND REASON FOR EXAM: Female, 23 years old. Abdominal pain. TECHNIQUE: Transabdominal ultrasound was performed with real-time and static rock scale imaging. TECHNICAL QUALITY: Adequate. COMPARISON: Comparison is made with prior study dated April 18, 2012. __ FINDINGS: Liver: The liver measures 16.4 cm. There is normal echogenicity of the liver. The bile ducts are within normal limits. There is hepatic color flow. The direction of portal flow is hepatopetal. There is no demonstrated mass lesion. Gallbladder: Normal distended gallbladder. The gallbladder wall measures 2.9 mm. There is a positive sonographic Arriaga's sign. There is no pericholecystic fluid. There are no gallstones. There is a stable 3 mm x 4 mm polyp. Common Bile Duct (C.B.D.): The common bile duct measures 5.1 mm. Pancreas: Normal size of the head, body and tail of the pancreas. There is normal echogenicity of the pancreas. There is no demonstrated pancreatic mass or cyst. Spleen: Normal size of the spleen. The spleen measures 12.5 cm x 4.9 cm x 5.5 cm. Right Kidney: Normal size of the right kidney. The right kidney measures 11.4 cm x 5.3 cm x 3.6 cm. Normal renal cortex. The right cortex measures 1.4 cm. There is no demonstrated renal mass or cyst. There is no right hydronephrosis. Left Kidney: Normal size of the left kidney. The left kidney measures 12.9 cm x 5.1 cm x 5.3 cm. Normal renal cortex. The left cortex measures 1.8 cm. There is no demonstrated renal mass or cyst. There is no left hydronephrosis. There is a 1 cm calculus in the midportion of the left kidney. Aorta: Unremarkable. I.V.C.: The IVC is patent. There is no ascites. __ IMPRESSION: Stable small gallbladder polyp. 1 cm calculus in the midportion of the left kidney. Electronically Signed: Niraj Liriano MD at 10:21 EST Tel [phone], Service support [phone], CC: Madeleine Arreola; May Alicia DO Gantry Crane Operator: Signed Madeleine Arreola Work Phone: Start: 07-08-2014 End: 07-08-2014 Pelvic (Non ) Comments: See Note; NOTES: [facility] Imaging Services [address] [place] [address] Ultrasound Report MR#: [id number] Acct: [id number] Name: DIANE DESHPANDE Rep #: [id number] : 1990 F 23 From: Niraj Liriano MD PCP: May Alicia DO Status: REG CLI Study: Pelvic (Non ) Date of Exam: 07/08/14 Exam# [id number] Ordering Dr: Madeleine Arreola STUDY: ULTRASOUND OF THE FEMALE PELVIS - COMPLETE REASON FOR EXAM: Female, 23 years old. LMP: June 27, 2014. Abdominal pain. TECHNIQUE: Transabdominal TECHNICAL QUALITY: Adequate. COMPARISON: None. __ FINDINGS: The uterus is anteverted and is in a midline position. The uterus measures 7.3 cm x 3.8 cm x 2.9 cm. Normal uterine cervix. The endometrium measures 2.6 mm in thickness, and is hyperechoic. There is no demonstrated endometrial mass. There is no demonstrated myometrial mass. I.U.D. - No The right ovary is visualized. The right ovary measures 2.6 cm x 1.9 cm x 2.3 cm. There is no right ovarian cyst or ovarian mass. There is no visualized right adnexal mass or complex lesion. There is normal arterial and normal venous vascularity. The left ovary is visualized. The left ovary measures 2.0 cm x 2.0 cm x 1.7 cm. There is no left ovarian cyst or ovarian mass. There is no visualized left adnexal mass or complex lesion. There is normal arterial and normal venous vascularity. There is no fluid in the cul-de-sac. __ IMPRESSION: Normal female pelvis. Electronically Signed: Niraj Liriano MD at 10:06 EST Tel [phone], Service support [phone], CC: Madeleine Arreola; May Alicia DO Gantry Crane Operator: Signed Madeleine Arreola Work Phone: Start: 06-20-2014 End: 06-20-2014 Emergency Department Summary Comments: See Note; NOTES: [facility] Medical Records Department [address] [place] [address] Emergency Department Summary MR#: [id number] Acct: [id number] Name: DIANE DESHPANDE Rep #: [id number] : 1990 23 From: Azeem Guillen MD PCP: May Alicia DO Status: [facility] ER DATE OF SERVICE: 06/19/2014 CHIEF COMPLAINT: Abdominal pain, nausea, vomiting, diarrhea. HISTORY OF PRESENT ILLNESS: The patient is a 23-year-old female presenting secondary to 2 days of nausea and vomiting. The patient states that she has had multiple episodes of nonbloody, nonbilious emesis and she has been able to keep down fluids as of the last 24 hours. Additionally, she reports 4 episodes of loose watery diarrhea and denies any blood. She states that over the course today she gradually developed a waxing and waning epigastric abdominal pain that she states has no exacerbating factors, but is relieved somewhat by lying in the position. She denies prior similar symptoms. REVIEW OF SYSTEMS: Otherwise, negative. PAST MEDICAL HISTORY: Positive for a possible history of possible Crohn's disease, although the patient states she is not on any medications for this. PHYSICAL EXAMINATION: VITAL SIGNS: Notable for heart rate of 102 on triage, otherwise within normal limits. GENERAL: Obese female in no acute distress. HEENT: Head, normocephalic, atraumatic. No conjunctival pallor or scleral icterus. Moist mucous membranes. NECK: Supple. HEART: Mildly tachycardic and regular. LUNGS: Lung sounds clear. ABDOMEN: Soft, nondistended, normal bowel sounds. No masses. Mild diffuse tenderness. No guarding or rebound. Remainder of the physical otherwise unremarkable. EMERGENCY DEPARTMENT COURSE AND DECISION MAKING: The patient's presentation seems most consistent with a gastroenteritis. I do not believe that radiographs are necessary at this time. The patient was given Zofran and Bentyl and continued to be nauseous and was given IM Phenergan and passed a p.o. fluid challenge. I believe she can safely be discharged. She will be sent home with a course of Phenergan. DISPOSITION: Discharge. DIAGNOSIS: Gastroenteritis. Azeem Guillen M.D. T: NTS JOB: [id number] 06/20/14 0430 <Electronically signed by Azeem Guillen MD> Date __ Azeem Guillen MD CC: May Alicia DO Date Dictated: 06/19/142346 Date Transcribed: 06/19/142346 Gantry Crane Operator: Signed May Alicia Start: 06-19-2014 End: 06-20-2014 Discharge Instruction Comments: See Note; NOTES: [facility] Medical Records Department [address] [place] [address] Discharge Instruction 06/19/142329 MR#: [id number] Acct: [id number] Name: DIANE DESHPANDE Rep #: [id number] : 1990 From: Azeem Guillen MD PCP: May Alicia DO Status: REG ER ED Disposition - Plan for ED Patient: Disposition: Home Chief Complaint: Nausea/Vomiting/Diarrhea Discharge Problem: Gastroenteritis Instructions: ED Diet, Vomiting Or Diarrhea [6Yr-Adult] Prescriptions: ProMETHAzine [Phenergan] 25 mg PO Q6H PRN PRN #10 tablet PRN Reason: Nausea Referrals: May Alicia DO [Primary Care Provider] - 3-5 Days if not improving What to do if you have Problems For any increased pain, shortness of breath, bleeding, nausea or vomiting, chest pain, or any unexpected problems, contact your doctor. Call [facility] ) or report to the closest Emergency Room. Call 911 if necessary. 06/19/142332 <Electronically signed by Azeem Guillen MD> Date __ Azeem Guillen MD Cosigner Signature (If Indicated): Date CC: May Lawson Start: 11-03-2013 End: 11-03-2013 Emergency Department Summary Comments: See Note; NOTES: [facility] Medical Records Department [address] [place] [address] Emergency Department Summary MR#: [id number] Acct: [id number] Name: DIANE DESHPANDE Rep #: [id number] : 1990 23 From: Akin Sheth MD PCP: May Alicia DO Status: DEP ER DATE OF SERVICE: 10/20/2013 CHIEF COMPLAINT: Loss of my vision. HISTORY OF PRESENT ILLNESS: This is a 23-year-old female with history of orthostatic hypotension who was at work. She had a near syncopal episode. She states that her vision felt like it was closing in, she could not see. She felt flushed, had palpitations, she began to feel shaky, she felt tingling all over, she felt like she was going to pass out. She did not have an episode of syncope; however. She does work in a hot environment and had poor p.o. intake today. She states she has had these symptoms multiple times previously and was told that it is due to orthostatic hypotension. REVIEW OF SYSTEMS: Otherwise negative. PHYSICAL EXAMINATION: VITAL SIGNS: Afebrile. Vital signs stable. NEUROLOGIC: No focal neurological deficits or lateralizing signs. HEART: Regular rhythm, tachycardia. LUNGS: Clear. ABDOMEN: Soft. HEENT: She has moist mucous membranes. EMERGENCY DEPARTMENT COURSE: The patient was treated with IV fluids. EKG shows normal sinus rhythm. Lab work remarkable for white count 12.4, sodium 135. Negative . Orthostatic vital signs were positive. She had a significant increase in her heart rate with standing. In addition, the patient has had multiple evaluations for this, but states she has also had chronic headaches, longstanding; therefore, I did obtain a CT of the head, which is normal. After fluids, the patient feels better. She would like to go home. She was discharged. IMPRESSION: Orthostatic hypotension. DISPOSITION: Discharged, Dr. Akin Sheth MD T: NTS JOB: [id number] 11/03/13 0037 <Electronically signed by Akin Sheth MD> Date __ Akin Sheth MD CC: May Alicia DO Date Dictated: 10/24/13840 Date Transcribed: 10/24/13840 Gantry Crane Operator: Signed May Alicia Work Phone: Start: 10-21-2013 End: 10-21-2013 12 lead ECG Comments: See Note; NOTES: [facility] Cardiovascular Services [address] [place] [address] 12 Lead EKG 10/20/13313 MR#: [id number] Acct: [id number] Name: DIANE DESHPANDE Rep #: [id number] : 1990 23 From: Lewis Farrar MD Attending Dr: Status: DEP ER Ordering Dr: Akin Sheth MD Date: 10/20/13 Location: ED Sex: F C Admitted: Test Reason : DIZZINESS Blood Pressure : / mmHG Vent. Rate : 094 BPM Atrial Rate : 094 BPM P-R Int : 116 ms QRS Dur : 104 ms QT Int : 380 ms P-R-T Axes : 032 067 013 degrees QTc Int : 475 ms Normal sinus rhythm Nonspecific ST and T wave abnormality Confirmed by GALI SPENCER, LEWIS ([id number]), assistant production editor ALONDRA BRIONES ([id number]) on 2013 9:16:34 AM Referred By: Akin Sheth Confirmed By:LEWIS FARRAR MD CC: May Alicia DO Date Dictated: 10/20/13313 Date Transcribed: 10/20/13313 Gantry Crane Operator: Signed May Alicia Start: 10-20-2013 End: 10-20-2013 Discharge Instruction Comments: See Note; NOTES: [facility] Medical Records Department [address] [place] [address] Discharge Instruction 10/20/13 0438 MR#: [id number] Acct: [id number] Name: DIANE DESHPANDE Rep #: [id number] : 1990 23 From: Akin Sheth MD PCP: May Alicia DO Status: REG ER ED Disposition - Plan for ED Patient: Chief Complaint: Dizziness Instructions: HYPOTENSION, Orthostatic Referrals: May Alicia DO [Primary Care Provider] - [facility] - What to do if you have Problems For any increased pain, shortness of breath, bleeding, nausea or vomiting, chest pain, or any unexpected problems, contact your doctor. Call [facility] ) or report to the closest Emergency Room. Call 911 if necessary. 10/20/13 0439 <Electronically signed by Akin Sheth MD> Date __ Akin Sheth MD CC: May Lawson Work Phone: Start: 10-20-2013 End: 10-20-2013 Brain/Head without Contrast Comments: See Note; NOTES: [facility] Imaging Services [address] [place] [address] CAT Scan Report MR#: [id number] Acct: [id number] Name: DIANE DESHPANDE Rep #: [id number] : 1990 F 23 From: Prudencio Muller MD PCP: May Alicia DO Status: REG ER Study: Brain/Head without Contrast Date of Exam: 10/20/13 Exam# [id number] Ordering Dr: Akin Sheth MD STUDY: CT BRAIN WITHOUT CONTRAST REASON FOR EXAM: Female, 23 years old. Dizziness. RADIATION DOSAGE (If Supplied By Facility): CTDIvol = ( 58.11 ) mGy, DLP = ( 800.04 ) mGycm TECHNIQUE: Transaxial CT imaging of the brain was performed without administration of intravenous contrast material. COMPARISON: None. __ FINDINGS: Normal soft tissue structures. Normal calvarium. Normal size ventricles and extra-axial spaces for the patient's age. Normal white matter tracts of the cerebral hemispheres. Normal basal ganglia and thalami. Normal brainstem. Normal cerebellum. There is no intracranial hemorrhage. There are no findings of an acute ischemic infarction. Normal visualized paranasal sinuses. __ IMPRESSION: Normal unenhanced CT scan of the brain. 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 May Alicia Work Phone: Adenoid excision [facility] irma Plan of Treatment Date Care Activity Detail Author Start: 02-18-2023 Procedure Education Eprescribed prescriptions (G8553) [facility]; [facility] Work Phone: Start: 02-18-2023 Provider Instructions for Treatment Reviewed Lab [facility]; [facility] Work Phone: Start: 03-26-2022 C-reactive protein C-REACTIVE PROTEIN (64628) [facility]; [facility] Work Phone: Start: 03-21-2022 Procedure Education Eprescribed prescriptions (G8553) [facility]; [facility] Work Phone: Start: 03-21-2022 Provider Instructions for Treatment Reviewed Lab [facility]; [facility] Work Phone: Start: 03-21-2022 Protein electrophoretic fractj&quantj serum [facility]; [facility] Work Phone: Start: 03-15-2021 Procedure Education Eprescribed prescriptions (G8553) [facility]; [facility] Work Phone: Start: 02-24-2020 Provider Instructions for Treatment Reviewed Lab [facility] Work Phone: Start: 10-21-2019 Procedure Education Eprescribed prescriptions (G8553) [facility] Work Phone: Start: 10-21-2019 Provider Instructions for Treatment [facility] Work Phone: Start: 10-21-2019 Comprehensive metabolic panel METABOLIC PANEL, COMPREHENSIVE (93195) [facility] Work Phone: Start: 10-21-2019 Blood count complete auto&auto difrntl wbc CBC W/AUTO DIFF WBC (12932) [facility] Work Phone: Start: 10-21-2019 Cobalamin (Vitamin B12) [Mass/Vol] VITAMIN B-12 (CYANOCOBALAMIN) (96716) [facility] Work Phone: Start: 10-21-2019 Lipoprotein blood eva numbers & subclasses NMR Profile (91643) [facility] Work Phone: Start: 07-22-2019 Procedure Education Eprescribed prescriptions (G8553) [facility] Work Phone: Start: 07-22-2019 Provider Instructions for Treatment Reviewed Lab [facility] Work Phone: Start: 02-16-2019 Cobalamin (Vitamin B12) [Mass/Vol] VITAMIN B-12 (CYANOCOBALAMIN) (93943) [facility] Work Phone: Start: 02-16-2019 Glucose [Mass/Vol] GLUCOSE (34676) [facility] Work Phone: Start: 02-16-2019 Lipoprotein blood eva numbers & subclasses NMR Profile (22568) [facility] Work Phone: Start: 02-12-2018 Provider Instructions for Treatment Reviewed Lab [facility] Work Phone: Start: 08-14-2017 Provider Instructions for Treatment Reviewed Diagnostic Tests [facility] Work Phone: Start: 08-01-2017 Provider Instructions for Treatment [facility] Work Phone: Start: 03-04-2017 Provider Instructions for Treatment [facility] Work Phone: Start: 03-15-2016 Procedure Education Eprescribed prescriptions (G8553) [facility] Work Phone: Start: 03-15-2016 Provider Instructions for Treatment [facility] Work Phone: Start: 09-06-2015 Patient Education Sore throat: diagnosis and treatment [facility] Work Phone: Start: 09-06-2015 Provider Instructions for Treatment Follow up in 3 months [facility] Work Phone: Start: 09-06-2015 Antibody herpes smplx type 1 Herpes Simplex 1&2 IGM (22667) [facility] Work Phone: Start: 09-06-2015 Antibody herpes smplx type 2 Herpes Simplex 1&2 IGG (42477) [facility] Work Phone: Start: 08-22-2015 Provider Instructions for Treatment Follow up in 2 weeks [facility] Work Phone: Start: 08-15-2015 Patient Education Sore throat: diagnosis and treatment [facility] Work Phone: Start: 08-15-2015 Provider Instructions for Treatment [facility] Work Phone: Start: 09-15-2014 Provider Instructions for Treatment [facility] Work Phone: Start: 08-10-2014 C-reactive protein C-Reactive Protein (02854) [facility]; [facility] Work Phone: Start: 08-10-2014 CRP [Mass/Vol] C-Reactive Protein (57155) [facility] Work Phone: Start: 07-26-2014 Assay of lipase LIPASE (96845) [facility] Work Phone: Start: 07-26-2014 Amylase [Catalytic activity/Vol] AMYLASE (51467) [facility] Work Phone: Start: 07-26-2014 Assay of amylase AMYLASE (92355) [facility]; [facility] Work Phone: Start: 07-26-2014 Iaad ia hpylori stool HELICO PYLORI, STOOL, INFCT ANTIGEN (35970) [facility] Work Phone: Start: 07-26-2014 Immunoassay analyte qual/semiqual multiple step IMMUNOASSAY, ANALYTE (NON-INFECT) (56104) celiac profile [facility] Work Phone: Start: 07-26-2014 Patient Education Celiac Disease and the Gluten-Free Diet: celiac disease [facility] Work Phone: Start: 06-22-2014 Provider Instructions for Treatment [facility] Work Phone: Start: 06-22-2014 Ova&parasites direct smears concentration & id OVA & PARASITE DIR SMEAR (67999) [facility] Work Phone: Start: 06-22-2014 Blood occult peroxidase actv qual feces 1 deter OCCULT BLOOD FECES SCREEN (68755) [facility] Work Phone: Start: 06-22-2014 Leukocyte assmt fecal qual/semiquantitative LEUKOCYTE COUNT, FECAL (96771) [facility] Work Phone: Start: 06-22-2014 Culture bacterial any source anaerobic iso&id C-DIFFICILE, STOOL (39962) [facility] Work Phone: Start: 06-22-2014 Cul bact stool aerobic isol salmonella&shigell BRADFORD CULTURE-STOOL (11599) [facility] Work Phone: Start: 06-10-2014 Procedure Education Eprescribed prescriptions (G8553) [facility] Work Phone: Start: 06-10-2014 Virus centrifuge enhncd id imfluor stain ea Influenza A&B Viral Culture (23786) [facility] Work Phone: Start: 05-03-2014 Patient Education Water in diet, brief version [facility] Work Phone: Start: 05-03-2014 Provider Instructions for Treatment [facility] Work Phone: Start: 03-24-2014 Provider Instructions for Treatment HTN/CAD Red Flags [facility] Work Phone: Start: 02-19-2014 Provider Instructions for Treatment Follow up in 1 month [facility] Work Phone: Start: 02-05-2014 Procedure Education Eprescribed prescriptions (G8553) [facility] Work Phone: Start: 01-25-2014 Patient Education Sore throat: diagnosis and treatment [facility] Work Phone: Start: 01-25-2014 Procedure Education Eprescribed prescriptions (G8553) [facility] Work Phone: Start: 01-25-2014 Provider Instructions for Treatment Follow up if no improvement or if symptoms worsen [facility] Work Phone: Start: 01-25-2014 Cul bact xcpt urine blood/stool aerobic isol BRADFORD CULTURE-OTHER (98786) [facility] Work Phone: Start: 03-03-2013 Provider Instructions for Treatment Follow up Mar 09 2013 [facility] Work Phone: Start: 02-27-2013 Patient Education Strep Test: pharyngitis [facility] Work Phone: Start: 02-27-2013 Provider Instructions for Treatment [facility] Work Phone: Start: 02-25-2013 Provider Instructions for Treatment *Antibiotic Usage Education - Female [facility] Work Phone: Start: 02-25-2013 Blood count manual cell count each CBC WITH MANUAL DIFF (06415) [facility] Work Phone: Start: 02-25-2013 Comprehensive metabolic panel METABOLIC PANEL, COMPREHENSIVE (63895) [facility] Work Phone: Start: 02-25-2013 Antibody joshua-sanchez eb virus early antigen ea EBV Panel (13327) [facility] Work Phone: Start: 12-25-2012 Provider Instructions for Treatment Follow up in 5 weeks [facility] Work Phone: Start: 12-03-2012 Provider Instructions for Treatment [facility] Work Phone: Start: 11-18-2012 Patient Education Fainting (Syncope) *: fainting [facility] Work Phone: Start: 08-12-2012 Cobalamin (Vitamin B12) [Mass/Vol] VITAMIN B12 AND FOLATES (10852) [facility] Work Phone: Start: 08-12-2012 Cyanocobalamin vitamin b-12 VITAMIN B12 AND FOLATES (44697) [facility]; [facility] Work Phone: Start: 04-14-2012 Assay of intrinsic factor INTRINSIC FACTOR (83047) [facility] Work Phone: Start: 04-14-2012 Hepatic function panel HEPATIC FUNCTION PANEL (42724) [facility] Work Phone: Start: 04-14-2012 Acute hepatitis panel HEPATITIS PANEL (34896) [facility] Work Phone: Start: 04-14-2012 Immunoassay analyte qual/semiqual multiple step ANTIMITOCHONDRIAL ANTIBODY (10650) [facility] Work Phone: Start: 04-14-2012 Assay of [id number] TRANSFERRIN (60787) [facility]; [facility] Work Phone: Start: 04-14-2012 Transferrin [Mass/Vol] TRANSFERRIN (18378) [facility] Work Phone: Start: 04-14-2012 Assay of glutamyltrase gamma GGT (GAMMA GLUTAMYLTRANSFERASE) (72060) [facility]; [facility] Work Phone: Start: 04-14-2012 Gamma glutamyl transferase [Catalytic activity/Vol] GGT (GAMMA GLUTAMYLTRANSFERASE) (79944) [facility] Work Phone: Start: 04-14-2012 Assay of ferritin FERRITIN (53134) [facility]; [facility] Work Phone: Start: 04-14-2012 Ferritin [Mass/Vol] FERRITIN (00965) [facility] Work Phone: Start: 04-14-2012 Antibody joshua-sanchez eb virus early antigen ea EBV IGM ANTIBODY (40925) [facility] Work Phone: Start: 04-14-2012 Antibody cytomegalovirus cmv igm CMV IGM ANTBDY (15652) [facility] Work Phone: Start: 04-14-2012 Ceruloplasmin CERULOPLASMIN (92634) [facility] Work Phone: Start: 04-14-2012 Fluorescent nonnfct agt antb screen ea antibody ASM (ANTI SMOOTH MUSCLE ANTIBODY) (95323) [facility] Work Phone: Start: 04-14-2012 Microsomal antibodies each ANTI-LIVER/KIDNEY MICROSOMAL ANTIBODY (17270) [facility] Work Phone: Start: 04-02-2012 Provider Instructions for Treatment [facility] Work Phone: Start: 04-02-2012 Clotting inhibitors protein s total Protein S Profile (06764) [facility]; [facility] Work Phone: Start: 04-02-2012 Clotting inhibitors protein c antigen Protein C Profile (65634) [facility]; [facility] Work Phone: Start: 04-02-2012 Assay of homocysteine Homocysteine, Plasma (73691) [facility] Work Phone: Start: 04-02-2012 Beta 2 glycoprotein i antibody each Antiphospholipid atb (01703) [facility] Work Phone: Start: 04-02-2012 Clotting inhibitrs antithrombn iii antigen assay ANTICOAG ANTTHROMB III & ASSAY (82312) [facility] Work Phone: Start: 04-02-2012 Clotting inhibitors antithrombin iii activity ANTITHROMBIN III ACTIVTY (11194) [facility] Work Phone: Start: 04-02-2012 Clotting factor ii prothrombin specific CLOTTING FACTOR II (54180) [facility] Work Phone: Start: 04-02-2012 Molecule gel electrophor Factor V Leiden (15764) [facility] Work Phone: Start: 04-02-2012 Molecule nucleic ampli, each MTHFR (30663) [facility] Work Phone: Start: 04-02-2012 HbA1c (Bld) [Mass fraction] Hemoglobin Glyclated (HGB A1C) (02988) [facility] Work Phone: Start: 04-02-2012 Hemoglobin glycosylated a1c Hemoglobin Glyclated (HGB A1C) (96526) [facility]; [facility] Work Phone: Start: 04-02-2012 Antinuclear antibodies maxine MAXINE (ANTINUCLEAR ANTIBODY) (18879) [facility]; [facility] Work Phone: Start: 04-02-2012 Nuclear Ab IF (S) [Titer] MAXINE (ANTINUCLEAR ANTIBODY) (38160) [facility] Work Phone: Start: 04-02-2012 Protein [Mass/Vol] [facility] Work Phone: Start: 04-02-2012 Protein electrophoretic fractj&quantj serum Serum Protein Electrophoresis (SPEP) (89239) [facility]; [facility] Work Phone: Start: 04-02-2012 Assay of thyroid stimulating hormone tsh TSH (THYROID STIMULATING HORMONE) (34159) [facility]; [facility] Work Phone: Start: 04-02-2012 Cobalamin (Vitamin B12) [Mass/Vol] VITAMIN B-12 (CYANOCOBALAMIN) (17103) [facility] Work Phone: Start: 04-02-2012 Cyanocobalamin vitamin b-12 VITAMIN B-12 (CYANOCOBALAMIN) (40760) [facility]; [facility] Work Phone: Start: 04-02-2012 TSH Qn TSH (THYROID STIMULATING HORMONE) (70951) [facility] Work Phone: Start: 04-02-2012 Blood count complete automated CBC & PLATELETS (AUTO) (38006) [facility] Work Phone: Start: 04-02-2012 Comprehensive metabolic panel METABOLIC PANEL, COMPREHENSIVE (32407) [facility] Work Phone: Start: 04-02-2012 Sedimentation rate rbc non-automated SED RATE ERYTHROCYTE (65254) [facility] Work Phone: Start: 02-22-2010 Blood occult peroxidase actv qual feces 1 deter Stool [place], Office (95782) [facility] Work Phone: Payers Date Payer Category Payer Policy ID Unknown Social History Date Type Detail Facility Caffeine Use Caffeine Use [facility] Work Phone: Functional Status Date Assessment Result Facility 02-15-2020 LP-IR Score LP-IR Score 81 [facility] Work Phone: Instructions Note Date & Type Note Facility [facility]; [facility] Work Phone: Instructions Note Date & Type Note Facility [facility]; [facility] Work Phone: Instructions Note Date & Type Note Facility [facility]; [facility] Work Phone: Instructions Note Date & Type Note Facility [facility]; [facility] Work Phone: Instructions Note Date & Type Note Facility [facility]; [facility] Work Phone: Instructions Note Date & Type Note Facility [facility]; [facility] Work Phone: Instructions Note Date & Type Note Facility [facility]; [facility] Work Phone: Instructions Note Date & Type Note Facility [facility]; [facility] Work Phone: Family History Unknown Family Member Name Dates Details Father Comments:Dm Type 1 Status:Active Maternal Grandfather Comments:Dm, heart DZ, kidne y Dz Status:Active Maternal Grandmother Comments:DM, asthma Status:Active Mother Comments:HTN, Status:Active Paternal Grandfather Comments:prostate [place] Status:Active Unknown Family Member Name Dates Details Father Comments:Dm Type 1 Status:Active Maternal Grandfather Comments:Dm, heart DZ, kidne y Dz Status:Active Maternal Grandmother Comments:DM, asthma Status:Active Mother Comments:HTN, Status:Active Paternal Grandfather Comments:prostate [place] Status:Active Unknown Family Member Name Dates Details Father Comments:Dm Type 1 Status:Active Maternal Grandfather Comments:Dm, heart DZ, kidne y Dz Status:Active Maternal Grandmother Comments:DM, asthma Status:Active Mother Comments:HTN, Status:Active Paternal Grandfather Comments:prostate [place] Status:Active Unknown Family Member Name Dates Details Father Comments:Dm Type 1 Status:Active Maternal Grandfather Comments:Dm, heart DZ, kidne y Dz Status:Active Maternal Grandmother Comments:DM, asthma Status:Active Mother Comments:HTN, Status:Active Paternal Grandfather Comments:prostate [place] Status:Active Unknown Family Member Name Dates Details Father Comments:Dm Type 1 Status:Active Maternal Grandfather Comments:Dm, heart DZ, kidne y Dz Status:Active Maternal Grandmother Comments:DM, asthma Status:Active Mother Comments:HTN, Status:Active Paternal Grandfather Comments:prostate [place] Status:Active Unknown Family Member Name Dates Details Father Comments:Dm Type 1 Status:Active Maternal Grandfather Comments:Dm, heart DZ, kidne y Dz Status:Active Maternal Grandmother Comments:DM, asthma Status:Active Mother Comments:HTN, Status:Active Paternal Grandfather Comments:prostate [place] Status:Active Unknown Family Member Name Dates Details Father Comments:Dm Type 1 Status:Active Maternal Grandfather Comments:Dm, heart DZ, kidne y Dz Status:Active Maternal Grandmother Comments:DM, asthma Status:Active Mother Comments:HTN, Status:Active Paternal Grandfather Comments:prostate [place] Status:Active Unknown Family Member Name Dates Details Father Comments:Dm Type 1 Status:Active Maternal Grandfather Comments:Dm, heart DZ, kidne y Dz Status:Active Maternal Grandmother Comments:DM, asthma Status:Active Mother Comments:HTN, Status:Active Paternal Grandfather Comments:prostate [place] Status:Active Unknown Family Member Name Dates Details Father Comments:Dm Type 1 Status:Active Maternal Grandfather Comments:Dm, heart DZ, kidne y Dz Status:Active Maternal Grandmother Comments:DM, asthma Status:Active Mother Comments:HTN, Status:Active Paternal Grandfather Comments:prostate [place] Status:Active Unknown Family Member Name Dates Details Father Comments:Dm Type 1 Status:Active Maternal Grandfather Comments:Dm, heart DZ, kidne y Dz Status:Active Maternal Grandmother Comments:DM, asthma Status:Active Mother Comments:HTN, Status:Active Paternal Grandfather Comments:prostate [place] Status:Active Unknown Family Member Name Dates Details Father Comments:Dm Type 1 Status:Active Maternal Grandfather Comments:Dm, heart DZ, kidne y Dz Status:Active Maternal Grandmother Comments:DM, asthma Status:Active Mother Comments:HTN, Status:Active Paternal Grandfather Comments:prostate [place] Status:Active Unknown Family Member Name Dates Details Father Comments:Dm Type 1 Status:Active Maternal Grandfather Comments:Dm, heart DZ, kidne y Dz Status:Active Maternal Grandmother Comments:DM, asthma Status:Active Mother Comments:HTN, Status:Active Paternal Grandfather Comments:prostate [place] Status:Active Unknown Family Member Name Dates Details Father Comments:Dm Type 1 Status:Active Maternal Grandfather Comments:Dm, heart DZ, kidne y Dz Status:Active Maternal Grandmother Comments:DM, asthma Status:Active Mother Comments:HTN, Status:Active Paternal Grandfather Comments:prostate [place] Status:Active Instructions Name Dates Details How to access health informa tion online Indication:Non-smoker Start:12-Feb-2018 Instruction Type:Patient Education How to access health informa tion online - Detail Indication:Non-smoker Start:12-Feb-2018 Instruction Type:Patient Education Patient Instructions Indication:Non-smoker Start:12-Feb-2018 Instruction Type:Provider Instructions for Treatment How to access health informa tion online Indication:Non-smoker Start:14-Aug-2017 Instruction Type:Patient Education How to access health informa tion online - Detail Indication:Non-smoker Start:14-Aug-2017 Instruction Type:Patient Education Patient Instructions Indication:Non-smoker Start:14-Aug-2017 Instruction Type:Provider Instructions for Treatment How to access health informa tion online Indication:Non-smoker Start:04-Mar-2017 Instruction Type:Patient Education How to access health informa tion online - Detail Indication:Non-smoker Start:04-Mar-2017 Instruction Type:Patient Education Patient Instructions Indication:Non-smoker Start:04-Mar-2017 Instruction Type:Provider Instructions for Treatment How to access health informa tion online Indication:Encounter for well adult exam with abnormal findings (Renamed from Encounter for general adult medical examination with abnormal findings) Start:15-Mar-2016 Instruction Type:Patient Education How to access health informa tion online - Detail Indication:Encounter for well adult exam with abnormal findings (Renamed from Encounter for general adult medical examination with abnormal findings) Start:15-Mar-2016 Instruction Type:Patient Education Patient Instructions Indication:Encounter for well adult exam with abnormal findings (Renamed from Encounter for general adult medical examination with abnormal findings) Start:15-Mar-2016 Instruction Type:Provider Instructions for Treatment Patient Instructions Indication:High blood pressure (not hypertension) Start:22-Aug-2015 Instruction Type:Provider Instructions for Treatment Patient Instructions Indication:Abdominal pain, acute, right upper quadrant Start:15-Sep-2014 Instruction Type:Provider Instructions for Treatment Patient Instructions Indication:Gastric reflux Start:26-Jul-2014 Instruction Type:Provider Instructions for Treatment Patient Instructions Indication:Flu-like symptoms Start:10-Jun-2014 Instruction Type:Provider Instructions for Treatment Patient Instructions Indication:Obesity Start:24-Mar-2014 Instruction Type:Provider Instructions for Treatment How to access health informa tion online Indication:Orthostatic hypotension Start:19-Feb-2014 Instruction Type:Patient Education How to access health informa tion online - Detail Indication:Orthostatic hypotension Start:19-Feb-2014 Instruction Type:Patient Education Patient Instructions Indication:Orthostatic hypotension Start:19-Feb-2014 Instruction Type:Provider Instructions for Treatment How to access health informa tion online Indication:Orthostatic hypotension Start:05-Feb-2014 Instruction Type:Patient Education How to access health informa tion online - Detail Indication:Orthostatic hypotension Start:05-Feb-2014 Instruction Type:Patient Education Patient Instructions Indication:Orthostatic hypotension Start:05-Feb-2014 Instruction Type:Provider Instructions for Treatment Patient Instructions Indication:Orthostatic hypotension Start:29-Jan-2013 Instruction Type:Provider Instructions for Treatment Patient Instructions Indication:Orthostatic hypotension Start:25-Dec-2012 Instruction Type:Provider Instructions for Treatment Patient Instructions Indication:Vision loss, bilateral Start:03-Dec-2012 Instruction Type:Provider Instructions for Treatment Patient Instructions Indication:Syncope Start:18-Nov-2012 Instruction Type:Provider Instructions for Treatment Patient Instructions Indication:Crohn disease Start:14-Apr-2012 Instruction Type:Provider Instructions for Treatment Name Dates Details How to access health informa tion online Indication:Non-smoker Start:21-Oct-2019 Instruction Type:Patient Education How to access health informa tion online - Detail Indication:Non-smoker Start:21-Oct-2019 Instruction Type:Patient Education Patient Instructions Indication:Non-smoker Start:21-Oct-2019 Instruction Type:Provider Instructions for Treatment How to access health informa tion online Indication:Vitamin B12 deficiency Start:23-Jul-2019 Instruction Type:Patient Education How to access health informa tion online - Detail Indication:Vitamin B12 deficiency Start:23-Jul-2019 Instruction Type:Patient Education Patient Instructions Indication:Vitamin B12 deficiency Start:23-Jul-2019 Instruction Type:Provider Instructions for Treatment How to access health informa tion online Indication:Non-smoker Start:22-Jul-2019 Instruction Type:Patient Education How to access health informa tion online - Detail Indication:Non-smoker Start:22-Jul-2019 Instruction Type:Patient Education Patient Instructions Indication:Non-smoker Start:22-Jul-2019 Instruction Type:Provider Instructions for Treatment How to access health informa tion online Indication:BMI 45.0-49.9, adult Start:16-Feb-2019 Instruction Type:Patient Education How to access health informa tion online - Detail Indication:BMI 45.0-49.9, adult Start:16-Feb-2019 Instruction Type:Patient Education Patient Instructions Indication:BMI 45.0-49.9, adult Start:16-Feb-2019 Instruction Type:Provider Instructions for Treatment How to access health informa tion online Indication:Non-smoker Start:12-Feb-2018 Instruction Type:Patient Education How to access health informa tion online - Detail Indication:Non-smoker Start:12-Feb-2018 Instruction Type:Patient Education Patient Instructions Indication:Non-smoker Start:12-Feb-2018 Instruction Type:Provider Instructions for Treatment How to access health informa tion online Indication:Non-smoker Start:14-Aug-2017 Instruction Type:Patient Education How to access health informa tion online - Detail Indication:Non-smoker Start:14-Aug-2017 Instruction Type:Patient Education Patient Instructions Indication:Non-smoker Start:14-Aug-2017 Instruction Type:Provider Instructions for Treatment How to access health informa tion online Indication:Non-smoker Start:04-Mar-2017 Instruction Type:Patient Education How to access health informa tion online - Detail Indication:Non-smoker Start:04-Mar-2017 Instruction Type:Patient Education Patient Instructions Indication:Non-smoker Start:04-Mar-2017 Instruction Type:Provider Instructions for Treatment How to access health informa tion online Indication:Encounter for well adult exam with abnormal findings (Renamed from Encounter for general adult medical examination with abnormal findings) Start:15-Mar-2016 Instruction Type:Patient Education How to access health informa tion online - Detail Indication:Encounter for well adult exam with abnormal findings (Renamed from Encounter for general adult medical examination with abnormal findings) Start:15-Mar-2016 Instruction Type:Patient Education Patient Instructions Indication:Encounter for well adult exam with abnormal findings (Renamed from Encounter for general adult medical examination with abnormal findings) Start:15-Mar-2016 Instruction Type:Provider Instructions for Treatment Patient Instructions Indication:High blood pressure (not hypertension) Start:22-Aug-2015 Instruction Type:Provider Instructions for Treatment Patient Instructions Indication:Abdominal pain, acute, right upper quadrant Start:15-Sep-2014 Instruction Type:Provider Instructions for Treatment Patient Instructions Indication:Gastric reflux Start:26-Jul-2014 Instruction Type:Provider Instructions for Treatment Patient Instructions Indication:Flu-like symptoms Start:10-Jun-2014 Instruction Type:Provider Instructions for Treatment Patient Instructions Indication:Obesity Start:24-Mar-2014 Instruction Type:Provider Instructions for Treatment How to access health informa tion online Indication:Orthostatic hypotension Start:19-Feb-2014 Instruction Type:Patient Education How to access health informa tion online - Detail Indication:Orthostatic hypotension Start:19-Feb-2014 Instruction Type:Patient Education Patient Instructions Indication:Orthostatic hypotension Start:19-Feb-2014 Instruction Type:Provider Instructions for Treatment How to access health informa tion online Indication:Orthostatic hypotension Start:05-Feb-2014 Instruction Type:Patient Education How to access health informa tion online - Detail Indication:Orthostatic hypotension Start:05-Feb-2014 Instruction Type:Patient Education Patient Instructions Indication:Orthostatic hypotension Start:05-Feb-2014 Instruction Type:Provider Instructions for Treatment Patient Instructions Indication:Orthostatic hypotension Start:29-Jan-2013 Instruction Type:Provider Instructions for Treatment Patient Instructions Indication:Orthostatic hypotension Start:25-Dec-2012 Instruction Type:Provider Instructions for Treatment Patient Instructions Indication:Vision loss, bilateral Start:03-Dec-2012 Instruction Type:Provider Instructions for Treatment Patient Instructions Indication:Syncope Start:18-Nov-2012 Instruction Type:Provider Instructions for Treatment Patient Instructions Indication:Crohn disease Start:14-Apr-2012 Instruction Type:Provider Instructions for Treatment Name Dates Details How to access health informa [employer] Indication:Non-smoker Start:21-Oct-2019 Instruction Type:Patient Education How to access health informa tion online - Detail Indication:Non-smoker Start:21-Oct-2019 Instruction Type:Patient Education Patient Instructions Indication:Non-smoker Start:21-Oct-2019 Instruction Type:Provider Instructions for Treatment How to access health informa tion online Indication:Vitamin B12 deficiency Start:23-Jul-2019 Instruction Type:Patient Education How to access health informa tion online - Detail Indication:Vitamin B12 deficiency Start:23-Jul-2019 Instruction Type:Patient Education Patient Instructions Indication:Vitamin B12 deficiency Start:23-Jul-2019 Instruction Type:Provider Instructions for Treatment How to access health informa tion online Indication:Non-smoker Start:22-Jul-2019 Instruction Type:Patient Education How to access health informa tion online - Detail Indication:Non-smoker Start:22-Jul-2019 Instruction Type:Patient Education Patient Instructions Indication:Non-smoker Start:22-Jul-2019 Instruction Type:Provider Instructions for Treatment How to access health informa tion online Indication:BMI 45.0-49.9, adult Start:16-Feb-2019 Instruction Type:Patient Education How to access health informa tion online - Detail Indication:BMI 45.0-49.9, adult Start:16-Feb-2019 Instruction Type:Patient Education Patient Instructions Indication:BMI 45.0-49.9, adult Start:16-Feb-2019 Instruction Type:Provider Instructions for Treatment How to access health informa tion online Indication:Non-smoker Start:12-Feb-2018 Instruction Type:Patient Education How to access health informa tion online - Detail Indication:Non-smoker Start:12-Feb-2018 Instruction Type:Patient Education Patient Instructions Indication:Non-smoker Start:12-Feb-2018 Instruction Type:Provider Instructions for Treatment How to access health informa tion online Indication:Non-smoker Start:14-Aug-2017 Instruction Type:Patient Education How to access health informa tion online - Detail Indication:Non-smoker Start:14-Aug-2017 Instruction Type:Patient Education Patient Instructions Indication:Non-smoker Start:14-Aug-2017 Instruction Type:Provider Instructions for Treatment How to access health informa tion online Indication:Non-smoker Start:04-Mar-2017 Instruction Type:Patient Education How to access health informa tion online - Detail Indication:Non-smoker Start:04-Mar-2017 Instruction Type:Patient Education Patient Instructions Indication:Non-smoker Start:04-Mar-2017 Instruction Type:Provider Instructions for Treatment How to access health informa tion online Indication:Encounter for well adult exam with abnormal findings (Renamed from Encounter for general adult medical examination with abnormal findings) Start:15-Mar-2016 Instruction Type:Patient Education How to access health informa tion online - Detail Indication:Encounter for well adult exam with abnormal findings (Renamed from Encounter for general adult medical examination with abnormal findings) Start:15-Mar-2016 Instruction Type:Patient Education Patient Instructions Indication:Encounter for well adult exam with abnormal findings (Renamed from Encounter for general adult medical examination with abnormal findings) Start:15-Mar-2016 Instruction Type:Provider Instructions for Treatment Patient Instructions Indication:High blood pressure (not hypertension) Start:22-Aug-2015 Instruction Type:Provider Instructions for Treatment Patient Instructions Indication:Abdominal pain, acute, right upper quadrant Start:15-Sep-2014 Instruction Type:Provider Instructions for Treatment Patient Instructions Indication:Gastric reflux Start:26-Jul-2014 Instruction Type:Provider Instructions for Treatment Patient Instructions Indication:Flu-like symptoms Start:10-Jun-2014 Instruction Type:Provider Instructions for Treatment Patient Instructions Indication:Obesity Start:24-Mar-2014 Instruction Type:Provider Instructions for Treatment How to access health informa tion online Indication:Orthostatic hypotension Start:19-Feb-2014 Instruction Type:Patient Education How to access health informa tion online - Detail Indication:Orthostatic hypotension Start:19-Feb-2014 Instruction Type:Patient Education Patient Instructions Indication:Orthostatic hypotension Start:19-Feb-2014 Instruction Type:Provider Instructions for Treatment How to access health informa tion online Indication:Orthostatic hypotension Start:05-Feb-2014 Instruction Type:Patient Education How to access health informa tion online - Detail Indication:Orthostatic hypotension Start:05-Feb-2014 Instruction Type:Patient Education Patient Instructions Indication:Orthostatic hypotension Start:05-Feb-2014 Instruction Type:Provider Instructions for Treatment Patient Instructions Indication:Orthostatic hypotension Start:29-Jan-2013 Instruction Type:Provider Instructions for Treatment Patient Instructions Indication:Orthostatic hypotension Start:25-Dec-2012 Instruction Type:Provider Instructions for Treatment Patient Instructions Indication:Vision loss, bilateral Start:03-Dec-2012 Instruction Type:Provider Instructions for Treatment Patient Instructions Indication:Syncope Start:18-Nov-2012 Instruction Type:Provider Instructions for Treatment Patient Instructions Indication:Crohn disease Start:14-Apr-2012 Instruction Type:Provider Instructions for Treatment Name Dates Details How to access health informa tion online Indication:BMI 40.0-44.9, adult Start:24-Feb-2020 Instruction Type:Patient Education How to access health informa tion online - Detail Indication:BMI 40.0-44.9, adult Start:24-Feb-2020 Instruction Type:Patient Education Patient Instructions Indication:BMI 40.0-44.9, adult Start:24-Feb-2020 Instruction Type:Provider Instructions for Treatment How to access health informa tion online Indication:Non-smoker Start:21-Oct-2019 Instruction Type:Patient Education How to access health informa tion online - Detail Indication:Non-smoker Start:21-Oct-2019 Instruction Type:Patient Education Patient Instructions Indication:Non-smoker Start:21-Oct-2019 Instruction Type:Provider Instructions for Treatment How to access health informa tion online Indication:Vitamin B12 deficiency Start:23-Jul-2019 Instruction Type:Patient Education How to access health informa tion online - Detail Indication:Vitamin B12 deficiency Start:23-Jul-2019 Instruction Type:Patient Education Patient Instructions Indication:Vitamin B12 deficiency Start:23-Jul-2019 Instruction Type:Provider Instructions for Treatment How to access health informa tion online Indication:Non-smoker Start:22-Jul-2019 Instruction Type:Patient Education How to access health informa tion online - Detail Indication:Non-smoker Start:22-Jul-2019 Instruction Type:Patient Education Patient Instructions Indication:Non-smoker Start:22-Jul-2019 Instruction Type:Provider Instructions for Treatment How to access health informa tion online Indication:BMI 45.0-49.9, adult Start:16-Feb-2019 Instruction Type:Patient Education How to access health informa tion online - Detail Indication:BMI 45.0-49.9, adult Start:16-Feb-2019 Instruction Type:Patient Education Patient Instructions Indication:BMI 45.0-49.9, adult Start:16-Feb-2019 Instruction Type:Provider Instructions for Treatment How to access health informa tion online Indication:Non-smoker Start:12-Feb-2018 Instruction Type:Patient Education How to access health informa tion online - Detail Indication:Non-smoker Start:12-Feb-2018 Instruction Type:Patient Education Patient Instructions Indication:Non-smoker Start:12-Feb-2018 Instruction Type:Provider Instructions for Treatment How to access health informa tion online Indication:Non-smoker Start:14-Aug-2017 Instruction Type:Patient Education How to access health informa tion online - Detail Indication:Non-smoker Start:14-Aug-2017 Instruction Type:Patient Education Patient Instructions Indication:Non-smoker Start:14-Aug-2017 Instruction Type:Provider Instructions for Treatment How to access health informa tion online Indication:Non-smoker Start:04-Mar-2017 Instruction Type:Patient Education How to access health informa tion online - Detail Indication:Non-smoker Start:04-Mar-2017 Instruction Type:Patient Education Patient Instructions Indication:Non-smoker Start:04-Mar-2017 Instruction Type:Provider Instructions for Treatment How to access [employer] Indication:Encounter for well adult exam with abnormal findings (Renamed from Encounter for general adult medical examination with abnormal findings) Start:15-Mar-2016 Instruction Type:Patient Education How to access health informa [employer] online - Detail Indication:Encounter for well adult exam with abnormal findings (Renamed from Encounter for general adult medical examination with abnormal findings) Start:15-Mar-2016 Instruction Type:Patient Education Patient Instructions Indication:Encounter for well adult exam with abnormal findings (Renamed from Encounter for general adult medical examination with abnormal findings) Start:15-Mar-2016 Instruction Type:Provider Instructions for Treatment Patient Instructions Indication:High blood pressure (not hypertension) Start:22-Aug-2015 Instruction Type:Provider Instructions for Treatment Patient Instructions Indication:Abdominal pain, acute, right upper quadrant Start:15-Sep-2014 Instruction Type:Provider Instructions for Treatment Patient Instructions Indication:Gastric reflux Start:26-Jul-2014 Instruction Type:Provider Instructions for Treatment Patient Instructions Indication:Flu-like symptoms Start:10-Jun-2014 Instruction Type:Provider Instructions for Treatment Patient Instructions Indication:Obesity Start:24-Mar-2014 Instruction Type:Provider Instructions for Treatment How to access [facility] Indication:Orthostatic hypotension Start:19-Feb-2014 Instruction Type:Patient Education How to access health informa [employer] - Detail Indication:Orthostatic hypotension Start:19-Feb-2014 Instruction Type:Patient Education Patient Instructions Indication:Orthostatic hypotension Start:19-Feb-2014 Instruction Type:Provider Instructions for Treatment How to access [employer] Indication:Orthostatic hypotension Start:05-Feb-2014 Instruction Type:Patient Education How to access health informa tion online - Detail Indication:Orthostatic hypotension Start:05-Feb-2014 Instruction Type:Patient Education Patient Instructions Indication:Orthostatic hypotension Start:05-Feb-2014 Instruction Type:Provider Instructions for Treatment Patient Instructions Indication:Orthostatic hypotension Start:29-Jan-2013 Instruction Type:Provider Instructions for Treatment Patient Instructions Indication:Orthostatic hypotension Start:25-Dec-2012 Instruction Type:Provider Instructions for Treatment Patient Instructions Indication:Vision loss, bilateral Start:03-Dec-2012 Instruction Type:Provider Instructions for Treatment Patient Instructions Indication:Syncope Start:18-Nov-2012 Instruction Type:Provider Instructions for Treatment Patient Instructions Indication:Crohn disease Start:14-Apr-2012 Instruction Type:Provider Instructions for Treatment Name Dates Details How to access health informa tion online Indication:BMI 45.0-49.9, adult Start:16-Feb-2019 Instruction Type:Patient Education How to access health informa tion online - Detail Indication:BMI 45.0-49.9, adult Start:16-Feb-2019 Instruction Type:Patient Education Patient Instructions Indication:BMI 45.0-49.9, adult Start:16-Feb-2019 Instruction Type:Provider Instructions for Treatment How to access health informa tion online Indication:Non-smoker Start:12-Feb-2018 Instruction Type:Patient Education How to access health informa tion online - Detail Indication:Non-smoker Start:12-Feb-2018 Instruction Type:Patient Education Patient Instructions Indication:Non-smoker Start:12-Feb-2018 Instruction Type:Provider Instructions for Treatment How to access health informa tion online Indication:Non-smoker Start:14-Aug-2017 Instruction Type:Patient Education How to access health informa tion online - Detail Indication:Non-smoker Start:14-Aug-2017 Instruction Type:Patient Education Patient Instructions Indication:Non-smoker Start:14-Aug-2017 Instruction Type:Provider Instructions for Treatment How to access health informa tion online Indication:Non-smoker Start:04-Mar-2017 Instruction Type:Patient Education How to access health informa tion online - Detail Indication:Non-smoker Start:04-Mar-2017 Instruction Type:Patient Education Patient Instructions Indication:Non-smoker Start:04-Mar-2017 Instruction Type:Provider Instructions for Treatment How to access health informa tion online Indication:Encounter for well adult exam with abnormal findings (Renamed from Encounter for general adult medical examination with abnormal findings) Start:15-Mar-2016 Instruction Type:Patient Education How to access health informa tion online - Detail Indication:Encounter for well adult exam with abnormal findings (Renamed from Encounter for general adult medical examination with abnormal findings) Start:15-Mar-2016 Instruction Type:Patient Education Patient Instructions Indication:Encounter for well adult exam with abnormal findings (Renamed from Encounter for general adult medical examination with abnormal findings) Start:15-Mar-2016 Instruction Type:Provider Instructions for Treatment Patient Instructions Indication:High blood pressure (not hypertension) Start:22-Aug-2015 Instruction Type:Provider Instructions for Treatment Patient Instructions Indication:Abdominal pain, acute, right upper quadrant Start:15-Sep-2014 Instruction Type:Provider Instructions for Treatment Patient Instructions Indication:Gastric reflux Start:26-Jul-2014 Instruction Type:Provider Instructions for Treatment Patient Instructions Indication:Flu-like symptoms Start:10-Jun-2014 Instruction Type:Provider Instructions for Treatment Patient Instructions Indication:Obesity Start:24-Mar-2014 Instruction Type:Provider Instructions for Treatment How to access health informa tion online Indication:Orthostatic hypotension Start:19-Feb-2014 Instruction Type:Patient Education How to access health informa tion online - Detail Indication:Orthostatic hypotension Start:19-Feb-2014 Instruction Type:Patient Education Patient Instructions Indication:Orthostatic hypotension Start:19-Feb-2014 Instruction Type:Provider Instructions for Treatment How to access health informa tion online Indication:Orthostatic hypotension Start:05-Feb-2014 Instruction Type:Patient Education How to access health informa tion online - Detail Indication:Orthostatic hypotension Start:05-Feb-2014 Instruction Type:Patient Education Patient Instructions Indication:Orthostatic hypotension Start:05-Feb-2014 Instruction Type:Provider Instructions for Treatment Patient Instructions Indication:Orthostatic hypotension Start:29-Jan-2013 Instruction Type:Provider Instructions for Treatment Patient Instructions Indication:Orthostatic hypotension Start:25-Dec-2012 Instruction Type:Provider Instructions for Treatment Patient Instructions Indication:Vision loss, bilateral Start:03-Dec-2012 Instruction Type:Provider Instructions for Treatment Patient Instructions Indication:Syncope Start:18-Nov-2012 Instruction Type:Provider Instructions for Treatment Patient Instructions Indication:Crohn disease Start:14-Apr-2012 Instruction Type:Provider Instructions for Treatment Additional Source Comments FOR RECORDS PERTAINING TO PATIENTS WHO ARE OR HAVE BEEN ENROLLED IN A CHEMICAL DEPENDENCY/SUBSTANCEABUSE PROGRAM, SOME INFORMATION MAY BE OMITTED. This clinical summary was aggregated from multiple sources. Caution should be exercised in using it in the provision of clinical care. This summary normalizes information from multiple sources, and as a consequence, information in this document may materially change the coding, format and clinical context of patient data. In addition, data may be omitted in some cases. CLINICAL DECISIONS SHOULD BE BASED ON THE PRIMARY CLINICAL RECORDS. [employer] provides no warranty or guarantee of the accuracy or completeness of information in this document.
[2023-06-28 10:09] LABS: HPV APTIMA, High Risk Negative (Negative)
== END | disposition home or self-care (01) ==
LOC: LABSPEC 16:46
PROVIDERS: PCP Internal Medicine; Referring Provider Nurse Practitioner Women's Health; Visit Provider Nurse Practitioner Women's Health
DX: Z12.4 Encounter for screening for malignant neoplasm of cervix (principal)
CPT/HCPCS: 87624; 88175; G0145

== ENCOUNTER → 2023-09-24 | Outpatient (CLI) | payer OTHER, SELFPAY ==
[2023-09-24 15:24] LABS: Absolute Neutrophil Count 8.8 X10^3/uL (2.0-7.7); Basophil# 0.08 X10^3/uL; Basophil% 0.6 % (0-1); Eosinophils% 1.4 % (0-5); Hemoglobin 13.1 g/dL (12.0-15.0); Lymphocyte % 29.5 % (19-41); Mean Corp Hgb Conc 32.8 g/dL (32-36); Mean Corpuscular Hgb 28.7 pg (27.0-32.0); Mean Corpuscular Volume 87.5 fL (81-99); Mean Platelet Vol. 10.7 fl (6.2-12.0); Monocyte# 0.88 X10^3/uL; Monocyte% 6.2 % (0-10); NRBC Flagged by Analyzer 0 % (0-5); Neutrophil % 61.9 % (47-70); Platelet Count 395 K/mm3 (150-450); RBC Distribution Width SD 37.9 fl (35.1-43.9); Red Blood Count 4.57 M/mm3 (4.2-5.4); White Blood Count 14.2 K/mm3 (4.4-11.0)
[2023-09-24 15:38] LABS: Erythrocyte Sedimentation Rate 34 mm/hr (0-30)
== END | disposition home or self-care (01) ==
PROVIDERS: PCP Internal Medicine; Referring Provider Internal Medicine Gastroenterology; Visit Provider Internal Medicine Gastroenterology
DX: K50.00 Crohn's disease of small intestine without complications (principal)
CPT/HCPCS: 36415; 85025; 85652; 86140

== ENCOUNTER → 2023-10-22 | Outpatient (CLI) | payer OTHER, SELFPAY ==
[2023-10-22 15:17] LABS: Erythrocyte Sedimentation Rate 22 mm/hr (0-30)
== END | disposition home or self-care (01) ==
PROVIDERS: PCP Internal Medicine; Referring Provider Internal Medicine Gastroenterology; Visit Provider Internal Medicine Gastroenterology
DX: K50.00 Crohn's disease of small intestine without complications (principal)
CPT/HCPCS: 36415; 85652; 86140

== ENCOUNTER → 2023-11-27 | Outpatient (CLI) | payer OTHER, SELFPAY ==
[2023-11-27 15:53] LABS: Erythrocyte Sedimentation Rate 25 mm/hr (0-30)
== END | disposition home or self-care (01) ==
PROVIDERS: PCP Internal Medicine; Referring Provider Internal Medicine Gastroenterology; Visit Provider Internal Medicine Gastroenterology
DX: K50.00 Crohn's disease of small intestine without complications (principal)
CPT/HCPCS: 36415; 85652; 86140

== ENCOUNTER → 2023-12-17 | Outpatient (CLI) | payer OTHER, SELFPAY ==
[2023-12-17 11:37] LABS: Thyroid Stim Hormone (TSH) 3.02 uIU/mL (0.358-3.74)
[2023-12-18 14:13] LABS: Adrenocorticotropic Hormone 45.5 pg/mL (7.2-63.3)
== END | disposition home or self-care (01) ==
LOC: LAB 05:17
PROVIDERS: Visit Provider Internal Medicine Gastroenterology
DX: K50.00 Crohn's disease of small intestine without complications (principal)
CPT/HCPCS: 36415; 82024; 82533; 84146; 84443

== ENCOUNTER → 2024-02-10 | Outpatient (CLI) | payer OTHER, SELFPAY ==
[2024-02-10 12:52] LABS: ALB/GLOB Ratio 0.7 RATIO (0.9-2.4); AST(SGOT) 10 U/L (15-37); Alanine Aminotransfer ALT/SGPT 15 U/L (13-56); Albumin, Serum 3.2 g/dL (3.2-5.0); Alkaline Phosphatase 83 U/L (45-117); Anion Gap 8 (5-15); BUN 7 mg/dL (7-18); Chloride 104 mmol/L (98-107); Creatinine, Serum 0.58 mg/dL (0.55-1.02); EST Glomerular Filtration Rate 127 mL/min (>60); Est Glom Filt Rate - Afr Amer 153 mL/min (>60); Globulin 4.5 g/dL (2.2-4.2); Glucose 97 mg/dL (74-106); Hepatitis B Surface Antibody Reactive; Hepatitis B Surface Antigen Non-Reactive (Nonreactive); Hepatitis C Antibody Non-Reactive (Nonreactive); Protein, Total 7.7 g/dL (6.4-8.2); Rheumatoid Factor < 10.0 IU/mL (<15); Sodium Level 138 mmol/L (136-145)
[2024-02-10 15:20] LABS: Absolute Lymphocyte Count 2.25 X10^3/uL (0.83-4.51); Absolute Neutrophil Count 5.4 X10^3/uL (2.0-7.7); Basophil# 0.07 X10^3/uL; Basophil% 0.8 % (0-1); Eosinophil# 0.36 X10^3/uL; Eosinophils% 4.2 % (0-5); Hematocrit 39.6 % (37-47); Hemoglobin 12.6 g/dL (12.0-15.0); Lymphocyte # 2.25 X10^3/ul (0.83-4.51); Lymphocyte % 26.2 % (19-41); Mean Corp Hgb Conc 31.8 g/dL (32-36); Mean Corpuscular Hgb 28.7 pg (27.0-32.0); Mean Corpuscular Volume 90.2 fL (81-99); Mean Platelet Vol. 10.7 fl (6.2-12.0); Monocyte# 0.46 X10^3/uL; Monocyte% 5.4 % (0-10); NRBC Flagged by Analyzer 0 % (0-5); Neutrophil % 62.8 % (47-70); Platelet Count 368 K/mm3 (150-450); RBC Distribution Width CV 12.2 % (11.6-14.6); RBC Distribution Width SD 39.8 fl (35.1-43.9); Red Blood Count 4.39 M/mm3 (4.2-5.4); White Blood Count 8.6 K/mm3 (4.4-11.0)
[2024-02-10 16:28] LABS: Erythrocyte Sedimentation Rate 15 mm/hr (0-30)
[2024-02-11 13:08] LABS: ANTINUCLEAR ANTIBODIES DIRECT Negative (Negative)
[2024-02-12 09:09] LABS: CCP IgG Antibodies 7 units (0-19)
== END | disposition home or self-care (01) ==
LOC: MTLAB 09:46
PROVIDERS: PCP Internal Medicine; Referring Provider Internal Medicine Rheumatology; Visit Provider Internal Medicine Rheumatology
DX: M07.60 Enteropathic arthropathies, unspecified site (principal); K50.90 Crohn's disease, unspecified, without complications; M79.7 Fibromyalgia
CPT/HCPCS: 36415; 80053; 85025; 85652; 86038; 86140; 86200; 86431; 86480; 86706; 86803; 87340

== ENCOUNTER → 2024-04-20 | Outpatient (CLI) | payer OTHER, SELFPAY ==
[2024-04-20 13:05] LABS: Absolute Lymphocyte Count 4.14 X10^3/uL (0.83-4.51); Absolute Neutrophil Count 9.7 X10^3/uL (2.0-7.7); Basophil# 0.12 X10^3/uL; Basophil% 0.8 % (0-1); Eosinophil# 0.11 X10^3/uL; Eosinophils% 0.7 % (0-5); Hematocrit 39.8 % (37-47); Lymphocyte # 4.14 X10^3/ul (0.83-4.51); Lymphocyte % 27.5 % (19-41); Mean Corp Hgb Conc 32.7 g/dL (32-36); Mean Corpuscular Hgb 29.9 pg (27.0-32.0); Mean Corpuscular Volume 91.5 fL (81-99); Mean Platelet Vol. 9.6 fl (6.2-12.0); Monocyte# 0.85 X10^3/uL; Monocyte% 5.6 % (0-10); NRBC Flagged by Analyzer 0 % (0-5); Neutrophil # 9.74 X10^3/uL (2.7-7.7); Neutrophil % 64.7 % (47-70); Platelet Count 415 K/mm3 (150-450); RBC Distribution Width CV 12.6 % (11.6-14.6); RBC Distribution Width SD 41.7 fl (35.1-43.9); Red Blood Count 4.35 M/mm3 (4.2-5.4); White Blood Count 15.1 K/mm3 (4.4-11.0)
[2024-04-20 13:10] LABS: Erythrocyte Sedimentation Rate 14 mm/hr (0-30)
[2024-04-20 13:31] LABS: ALB/GLOB Ratio 0.8 RATIO (0.9-2.4); AST(SGOT) 9 U/L (15-37); Alanine Aminotransfer ALT/SGPT 16 U/L (13-56); Albumin, Serum 3.3 g/dL (3.2-5.0); Alkaline Phosphatase 93 U/L (45-117); Amylase 31 U/L (25-115); Anion Gap 3 (5-15); BUN 9 mg/dL (7-18); BUN/Creat Ratio 13.2 RATIO (10-20); Chloride 104 mmol/L (98-107); Creatinine, Serum 0.68 mg/dL (0.55-1.02); EST Glomerular Filtration Rate 106 mL/min (>60); Est Glom Filt Rate - Afr Amer 128 mL/min (>60); Globulin 4.3 g/dL (2.2-4.2); Glucose 85 mg/dL (74-106); Lipase 24 U/L (13-75); Potassium 3.6 mmol/L (3.5-5.1); Protein, Total 7.6 g/dL (6.4-8.2); Sodium Level 135 mmol/L (136-145)
== END | disposition home or self-care (01) ==
PROVIDERS: PCP Internal Medicine; Referring Provider Internal Medicine Rheumatology; Visit Provider Internal Medicine Gastroenterology
DX: M07.60 Enteropathic arthropathies, unspecified site (principal); K50.00 Crohn's disease of small intestine without complications; M79.7 Fibromyalgia; Z79.899 Other long term (current) drug therapy
CPT/HCPCS: 36415; 80053; 82150; 83690; 85025; 85652; 86140

== ENCOUNTER → 2024-04-24 | Outpatient (CLI) | payer OTHER, SELFPAY ==
--- NOTE | 2024-04-24 12:49 | CT_ITS ---
STUDY: CT ABDOMEN AND PELVIS WITH CONTRAST REASON FOR EXAM: Female, 33 years old. crohns disease RADIATION DOSAGE (If Supplied By Facility): CTDIvol = ( 18.73 ) mGy, DLP = ( 1371.65 ) mGycm TECHNIQUE: Transaxial images were obtained from the dome of the diaphragm to the symphysis pubis with oral contrast. Oral and amp; IV Readi-CAT and amp; 100mL Isovue-370 was administered. Sagittal and coronal images were reconstructed. Individualized dose optimization techniques were used for this CT. COMPARISON: None. FINDINGS: The visualized lung bases are unremarkable. The visualized portions of the heart are within normal limits. Normal liver. There is non-visualization of the gallbladder, which may be secondary to either contraction or a prior cholecystectomy. Normal spleen. Normal pancreas. Normal bilateral adrenal glands. Normal right kidney. Normal left kidney. Contrast in the distal esophagus. This is consistent with reflux. There is a small hiatal hernia. Otherwise normal visualized stomach. Normal small intestine. Normal colon. The appendix is visualized and appears normal. Normal abdominal aorta. Normal inferior vena cava. Normal retroperitoneum. Normal urinary bladder. 6.7 cm probable fibroid of the uterus. Normal abdominal wall. Normal osseous structures. CT/Abdomen/Pelvis WITH Contrast IMPRESSION: 6.7 cm probable uterine fibroid. Hepatomegaly. No acute abnormalities. Electronically Signed: Dre Humphries MD at 22:18 EST ,
== END | disposition home or self-care (01) ==
LOC: CT 12:48
PROVIDERS: PCP Internal Medicine; Referring Provider Internal Medicine Gastroenterology; Visit Provider Internal Medicine Gastroenterology
DX: K50.00 Crohn's disease of small intestine without complications (principal)
CPT/HCPCS: 74177; Q9967

== ENCOUNTER → 2024-05-20 | Outpatient (CLI) | payer OTHER, SELFPAY ==
[2024-05-22 15:07] LABS: Calprotectin, Stool 90 ug/g (0-120); Fats, Neutral Normal (.); Fats, Total Normal (.)
[2024-05-23 02:07] LABS: Pancreatic Elastase, Fecal > 800 (>200)
== END | disposition home or self-care (01) ==
LOC: LABSPEC 07:55
PROVIDERS: PCP Internal Medicine; Visit Provider Internal Medicine Gastroenterology
DX: K50.00 Crohn's disease of small intestine without complications (principal)
CPT/HCPCS: 82274; 82653; 82705; 83630; 83993; 87177; 87209; 87329; 87506

== ENCOUNTER → 2024-07-02 | Outpatient (CLI) | payer OTHER, SELFPAY ==
--- NOTE | 2024-07-02 15:32 | CT_ITS ---
PROCEDURE: CTA CHEST W/WO CONTRAST REASON FOR EXAM: Shortness of breath; test +COVID 06/28; cough; chest pain. TECHNIQUE: Chest CTA with intravenous contrast and 3D reconstructions. COMPARISON: None. FINDINGS: CHEST: Lines and tubes: None. Mediastinum: No evidence of mediastinal hemorrhage. Heart: Normal heart size. No pericardial effusion. Thoracic Aorta: No evidence of acute traumatic aortic injury. Lungs and Airways: Mild left dependent atelectasis. Pleura: No pleural effusion. No pneumothorax. Bones: No acute osseous abnormality identified. Small sliding hiatal hernia. CT/CTA Chest W/WO Contrast IMPRESSION: No acute chest abnormality. No pulmonary embolism. Mild left basilar dependent atelectasis. Small sliding hiatal hernia. One or more dose reduction techniques were used (e.g., Automated exposure contr ol, adjustment of the mA and/or kV according to patient size, use of iterative reconstruction technique). Reading Location: [id number]
== END | disposition home or self-care (01) ==
LOC: CT 15:31
PROVIDERS: PCP Internal Medicine; Referring Provider Internal Medicine; Visit Provider Internal Medicine
DX: R06.02 Shortness of breath (principal)
CPT/HCPCS: 71275; Q9967

== ENCOUNTER → 2024-07-06 | Outpatient (CLI) | payer OTHER, SELFPAY ==
--- NOTE | 2024-07-06 14:12 | US_ITS ---
PROCEDURE: PELVIC W/ TRANSVAGINAL REASON FOR EXAM: Uterine fibroid TECHNIQUE: Transabdominal and transvaginal pelvic ultrasound COMPARISON: None. FINDINGS: Uterus: Anteverted measuring 10.7 x 7.6 x 6.2 cm. Uterine fibroid measures 6.2 x 5.8 x 5.7 cm. Endometrium: Not well appreciated. No intrauterine seen. Right ovary: Not visualized. Left ovary: 2.4 x 3.1 x 1.9 cm. No masses or fluid collections are identified. Blood flow is demonstrated. Other adnexal findings: None. Cul-de-sac: No free intraperitoneal fluid identified. Urinary bladder measures 7.0 x 3.7 x 8.2 cm, for an estimated volume of 108.7 cc. US/Pelvic w/ Transvaginal IMPRESSION: 1. Uterine fibroid measures 6.2 x 5.8 x 5.7 cm. 2. No masses or fluid collections seen within the left ovary. 3. Right ovary is not well seen. Reading Location: [facility]
== END | disposition home or self-care (01) ==
LOC: US 14:10
PROVIDERS: PCP Internal Medicine; Referring Provider Nurse Practitioner Women's Health; Visit Provider Nurse Practitioner Women's Health
DX: N92.0 Excessive and frequent menstruation with regular cycle (principal); N94.6 Dysmenorrhea, unspecified; D25.9 Leiomyoma of uterus, unspecified
CPT/HCPCS: 76830; 76856

== ENCOUNTER → 2024-07-10 | Outpatient (CLI) | payer OTHER, SELFPAY | END | disposition home or self-care (01) | LOC: SL 19:58 | PROVIDERS: PCP Internal Medicine; Referring Provider Nurse Practitioner Acute Care; Visit Provider Nurse Practitioner Acute Care | DX: G47.10 Hypersomnia, unspecified (principal) | CPT/HCPCS: 95810 ==

== ENCOUNTER → 2024-07-29 | Outpatient (CLI) | payer OTHER, SELFPAY ==
[2024-07-29 12:46] VITALS: BP 163/83; PULSE 95; RESP 18; TEMP 36.4; O2SAT 97; BMI 47.7
--- NOTE | 2024-07-29 12:59 | MRI_ITS ---
EXAM: MR enterography without and with intravenous contrast. CLINICAL HISTORY: Crohn's disease of the small intestine without complication. Crohn's disease recheck. History of prior cholecystectomy 2014. COMPARISON: CT abdomen/pelvis 04/24/2024. TECHNIQUE: Multiplanar, multisequence MRI images of the abdomen/pelvis were obtained without and with intravenous contrast. 30 cc Clariscan IV contrast was administered. FINDINGS: The included osseous structures of the abdomen/pelvis are grossly unremarkable no large abdominal wall defect. 5.7 cm T2 hypointense mass of the uterus corresponding to suspected fibroid described on the CT abdomen/pelvis 04/24/2024. No abnormally dilated bowel segments. No drainable abdominal/pelvic fluid collection. No abdominal/pelvic ascites or adenopathy. There is moderate fluid signal in the stomach. The gallbladder is not demonstrated, absent by history. No abnormal dilation of the biliary tree. The superior aspect of the liver is not included on postcontrast images. The included portions of the liver, spleen, adrenal glands, pancreas, and kidneys are unremarkable. No gross bowel wall thickening or mesenteric inflammatory changes are demonstrated. MRI/Enterography Abd/Pel IMPRESSION: No acute findings in the abdomen/pelvis by MRI. No evidence of active inflamma tory bowel disease. Similar-appearing 5.7 cm uterine fibroid. Reading Location: [facility]
[2024-07-29] MEDS: 0.9% Saline Lock 10 ML Syringe IV (14:27)
[2024-07-29] MEDS: Glucagon 1 MG/ML Syringe IV (14:27)
[2024-07-29 14:41] VITALS: BP 153/95; PULSE 91; RESP 16; O2SAT 95
== END | disposition home or self-care (01) ==
LOC: MRI 12:02
PROVIDERS: PCP Internal Medicine; Referring Provider Internal Medicine Gastroenterology; Visit Provider Internal Medicine Gastroenterology
DX: K50.00 Crohn's disease of small intestine without complications (principal)
CPT/HCPCS: 74183; 96374; A9575; A4216; J1610

== ENCOUNTER → 2024-08-05 | Outpatient (CLI) | payer OTHER, SELFPAY ==
--- NOTE | 2024-08-05 15:30 | EMB_PTH ---
PATIENT: WADE ESPARZA LOC: [facility] U#:[id number] AGE/SX: 33/F ROOM: RE08/05/[address]: Dr. Greta Morse DO : 1990 BED: DIS: 08/05/2024 SPEC #: [id number] RECD: 08/06/24 10:36 STATUS: DANIAL VARNER #: [id number] DWIGHT: 08/05/24 15:[address]: Greta Morse DEPT: SURGICAL PATHOLOGY RECD BY: Vinnie Waters ENTERED: 08/06/24 10:36 SP TYPE: ENDOM BX/C JANIS DR: Dr. May Alicia DO Tissues: Endometrium, NOS Procedures: Surgery Specimen Level IV HEADER OPERATION: Endometrial biopsy PRE-OP DIAGNOSIS: Menorrhagia TISSUE SUBMITTED: Endometrial lining MICROSCOPIC DIAGNOSIS Endometrium biopsy: * Fragmented benign endometrium with extensive shedding stroma, consistent with menstrual phase. MICROSCOPIC DESCRIPTION Slides are reviewed. GROSS DESCRIPTION Received in formalin labeled, Jeramy, Eneida, and not designated, are multiple red-brown, hemorrhagic, soft tissue fragments and mucus that aggregate to 2.0 x 2.0 x 0.2 cm. Totally submitted in one cassette.MADHAV. 08/06/2024 CPT:18517
[2024-08-13 13:08] LABS: HPV APTIMA, High Risk Negative (Negative)
== END | disposition home or self-care (01) ==
LOC: LABSPEC 16:13
PROVIDERS: PCP Internal Medicine; Referring Provider Obstetrics & Gynecology; Visit Provider Obstetrics & Gynecology
DX: Z12.4 Encounter for screening for malignant neoplasm of cervix (principal); N92.0 Excessive and frequent menstruation with regular cycle
CPT/HCPCS: 87624; 88175; 88305; G0145

== ENCOUNTER → 2025-02-06 | Outpatient (CLI) | payer OTHER, SELFPAY ==
--- OUTSIDE RECORDS SUMMARY | 2025-02-06 11:00 | XMS RPT_ITS | CCD ---
Author Organization [facility] Care Team Providers Care Pool Technician Name Role Phone May Alicia Unavailable Ravi Larios Unavailable Uri Escamilla Unavailable Alli Verma Unavailable Unavailab Eusebio Ayers Unavailable Kofi Terry Unavailable [facility], [facility] Unavailable Olu De Guzman Unavailable Cary Heaton Unavailable Unavailable Ciesa, Rebeka Unavailable Mohsenrb, Amber Unavailable Unavailable Unavailable Unavailable Cary Heaton Unavailable Unavailable Vinnie Layne Unavailable Unavailable Unavailable Unavailable Destiny Carrillo Unavailable Unavailable Vinnie Lentz Unavailable Unavailable May Alicia DO Unavailable Ravi Larios MD Unavailable Uri Escamilla MD Unavailable [phone] Alli Verma Unavailable Unavailab Eusebio Ayers MD Unavailable Dr. Kofi Terry Unavailable [facility], [facility] Unavailable Olu De Guzman MD Unavailable [phone] Destiny Carrillo LPN Unavailable Unavailable Ciesa COMMUNITY RECREATION PROGRAMMER, Rebeka Unavailable Sladiony LOPES, Amber Unavailable Unavailable Cary Heaton RN Unavailable Unavailable Vinnie Lentz LPN Unavailable Unavailable Unavailable Unavailable Dorothy Arriaga MA Unavailable Unavailable May Alicia DO Unavailable Friend, Dr. Hanson Unavailable [phone] Madeleine Arreola Unavailable Win [facility], Ruth Unavailable Unavailable Madeleine Arreola Unavailable Dr. May Alicia Primary Care Provider [phone] Dr. May Alicia Referring Provider Jessee FLIGHT ATTENDANT/INFLIGHT SUPERVISOR, FLIGHT ATTENDANT/INFLIGHT SUPERVISOR-C Theresa Joseph Attending Provider [phone] Gravius [facility], Sindhu Unavailable Unavailable Friend, Dr. Hanson Attending Provider [phone] Friend, Dr. Hanson Other Provider [phone] CHINTAN Allen Attending Provider CHINTAN Sage Attending Provider Dr. May Alicia Primary Care Provider [phone] Dr. May Alicia Referring Provider Jessee FLIGHT ATTENDANT/INFLIGHT SUPERVISOR, FLIGHT ATTENDANT/INFLIGHT SUPERVISOR-C Theresa Joseph Attending Provider [phone] Friend, Dr. Hanson Attending Provider [phone] Friend, Dr. Hanson Other Provider [phone] CHINTAN Allen Attending Provider CHINTAN Sage Attending Provider Dr. May Alicia Primary Care Provider [phone] Dr. May Alicia Referring Provider Jessee FLIGHT ATTENDANT/INFLIGHT SUPERVISOR, FLIGHT ATTENDANT/INFLIGHT SUPERVISOR-C Theresa Joseph Attending Provider [phone] Dr. May Alicia Primary Care Provider [phone] Dr. May Alicia Referring Provider Jessee FLIGHT ATTENDANT/INFLIGHT SUPERVISOR, FLIGHT ATTENDANT/INFLIGHT SUPERVISOR-C Theresa Joseph Attending Provider [phone] Dr. Valentin Whitmore Attending Provider [phone] FriendDr. Hanson Other Provider [phone] May Alicia Primary Care Provider [phone] Eliseo, Dr. Olvera Referring Provider 1([facility])[phone] LIBORIO Torrez LPN, Dr. Olvera Primary Care Provider [phone] Eliseo, Dr. Olvera Referring Provider 1([facility])[phone] Friend, Dr. Hanson Attending Provider [phone]([phone] Friend, Dr. Hanson Other Provider [phone] May Alicia Primary Care Provider 1([facility] )[phone] Eliseo, Dr. Olvera Referring Provider 1([facility])[phone] Friend, Dr. Hanson Attending Provider [phone]([facility])[phone] Violeta FLIGHT ATTENDANT/INFLIGHT SUPERVISOR, FLIGHT ATTENDANT/INFLIGHT SUPERVISOR-C Jennifer Attending Provider 1([facility] )[phone] Dr. May Alicia Primary Care Provider 1([facility] )[phone] Dr. May Alicia Referring Provider 1([facility])[phone] Friend, Dr. Hanson Attending Provider 1([facility])[phone] Violeta FLIGHT ATTENDANT/INFLIGHT SUPERVISOR, FLIGHT ATTENDANT/INFLIGHT SUPERVISOR-C Jennifer Attending Provider 1([facility] )[phone] Eliseo RICH, Dr. Olvera Primary Care Provider Myranda RICH, Dr. Hanson Attending Provider Dr. Cecilia Raymond MD Referring Provider Dr. Valentin Whitmore DO Referring Provider Ramses Sage Attending Provider [phone] Eliseo RICH, Dr. Olvera Referring Provider 1([facility] )[phone] Violeta ALLEN-CJennifer Attending Provider 1([facility])[phone] Dr. May Alicia DO Attending Provider 1([facility] )[phone] Shahbaz ALLEN-CSana Attending Provider Violeta FLIGHT ATTENDANT/INFLIGHT SUPERVISOR-CJennifer Referring Provider 1([facility])[phone] Shahbaz ALLEN-CSana Referring Provider Beverly Shirley DO, Dr. Hernandes Attending Provider Beverly Shirley DO, Dr. Hernandes Referring Provider Eliseo DO, Dr. Olvera Primary Care Provider Shahbaz ALLEN-Peter, Sana Attending Provider Friend DO, Dr. Hanson Attending Provider Friend DO, Dr. Hanson Referring Provider Eliseo DO, Dr. Olvera Referring Provider [phone] Friend DO, Dr. Hanson Attending Provider Eliseo DO, Dr. Olvera Primary Care Provider Eliseo DO, Dr. Olvera Referring Provider Friend, Valentin Referring Unavailable Eliseo, May Primary Care Unavailable Friend, Valentin Attending Unavailable Eliseo, May Attending Unavailable Eliseo, May Primary Care Unavailable Eliseo, May Referring Unavailable Eliseo, May Primary Care Unavailable Greta Morse Referring Unavailabl e Vande Greta Shirley Attending Unavailabl e Eliseo, May Primary Care Unavailable Friend, Valentin Attending Unavailable Ramses Sage Attending Unavailable Eliseo, May Primary Care Unavailable [place] FLIGHT ATTENDANT/INFLIGHT SUPERVISOR, Jennifer Referring Unavailable [place] FLIGHT ATTENDANT/INFLIGHT SUPERVISOR, Jennifer Attending Unavailable Friend, Valentin Attending Unavailable Eliseo, May Primary Care Unavailable Friend, Valentin Referring Unavailable Friend, Valentin Attending Unavailable Eliseo, May Primary Care Unavailable Friend, Valentin Attending Unavailable Eliseo, May Primary Care Unavailable Vellanki, Cecilia Referring Unavailable Eliseo, May Referring Unavailable Violeta FLIGHT ATTENDANT/INFLIGHT SUPERVISOR, Jennifer Attending Unavailable Eliseo, May Primary Care Unavailable Shahbaz FLIGHT ATTENDANT/INFLIGHT SUPERVISOR, Sana Attending Unavailable Shahbaz FLIGHT ATTENDANT/INFLIGHT SUPERVISORSana Referring Unavailable Eliseo, May Primary Care Unavailable Assessment, Health Risk Attending Unavaila ble Eliseo, May Primary Care Unavailable Vande Velroman Greta Attending Unavailabl e Eliseo, May Primary Care Unavailable Vellanki, Cecilia Referring Unavailable Vellanki, Cecilia Attending Unavailable Ramses Sage Attending Unavailable Ramses Sage Attending Unavailable Eliseo, May Primary Care Unavailable Eliseo, May Referring Unavailable Sana Hartmann NP Attending Unavailable Eilseo, May Primary Care Unavailable Eliseo, May Referring Unavailable Greta Morse Attending Unavailbull alvarez FriendValentin Attending Unavailable Eliseo, May Primary Care Unavailable Eliseo, May Referring Unavailable Friend, Valentin Attending Unavailable Eliseo, May Primary Care Unavailable Eliseo, May Referring Unavailable Eliseo, May Primary Care Unavailable Eliseo, May Referring Unavailable Shahbaz ALLEN, Sana Attending Unavailable Allergies Allergy Classification Reported Allergen(s) Allergy Type Date of Onset Reaction(s) Facility Azole Antifungals (1 source) Clotrimazole; Translations: [Clotrimazole *MOUTH/THROAT/D ENTAL AGENTS*] Drug Allergy [facility] Work Phone: Comment on above: Blurred vision (20 sources) Clotrimazole; Translations: [Clotrimazole *MOUTH/THROAT/D ENTAL AGENTS*] Drug Allergy Blurred Vision [facility] Work Phone: Comment on above: Blurred vision Medications Current Medications Medication Drug Class(es) Dates Sig (Normalized) Sig (Original) betamethasone 0.5 mg/ml / clotrimazole 10 mg/ml topical cream (6 sources) Azole Antifungal, Corticosteroid Start: 06-25-2023 Clotrimazole-Bet amethasone 1-0.05 % cream Active 1 NMA TOPICAL TWICE A DAY 45 14 June 25, 2023 1:00am Start: 06-25-2023 Clotrimazole-B etamethasone Active 1 APPLIC TOPICAL TWICE A DAY 45 June 25, 2023 1:00am budesonide 3 mg delayed release oral capsule (7 sources) Corticosteroid Start: 10-29-2023 take 1 capsule by mouth twice daily Budesonide 3 mg capsule,delayed,extend.release Active 3 mg PO TWICE A DAY 60 3 October 29, 2023 12:00am Start: 08-10-2014 End: 03-04-2017 take 1 capsule by mouth once daily Budesonide 3 MG Oral Capsule Delayed Release Particles 1 (one) Capsule ER 24HR daily for 360 days Refills: 0 Ordered: 04-Mar-2017 Cary Heaton RN Start : 10-Aug-2014 End : 04-Mar-2017 Inactive Comments: Dr Terry Comment on above: Dr Terry celecoxib 200 mg oral capsule (4 sources) Nonsteroidal Anti-inflammatory Drug Start: 025 take 1 capsule by mouth once daily Celecoxib (Celebrex) 200 mg capsule Active 200 mg PO daily 30 June 19, 2024 1:00am cholecalciferol 0.025 mg oral capsule (20 sources) Vitamin D Start: 022 take 1 capsule by mouth once daily Cholecalciferol (Vitamin D3) 25 mcg (1,000 unit) capsule Active 25 ug PO DAILY December 22, 2021 12:00am Norgestimate-Ethinyl Estradiol (20 sources) Progestin, Estrogen Start: Norgestimate-Ethinyl Estradiol (Sprintec (28)) 0.25-35 mg-mcg tablet Active 1 {tbl} PO DAILY 84 June 29, 2024 3:40pm Start: 06-29-2024 Norgestimate-E thinyl Estradiol (Sprintec (28)) 0.25-35 mg-mcg tablet Active 1 {tbl} PO DAILY June 29, 2024 3:40pm Start: 06-25-2023 End: 06-29-2024 Norgestimate-Ethinyl Estradi ol 0.25-35 mg-mcg tablet Discontinued 1 {tbl} PO DAILY 84 June 25, 2023 3:55pm June 29, 2024 3:41pm Start: 06-25-2023 End: 06-29-2024 Norgestimate-Ethinyl Estradi ol 0.25-35 mg-mcg tablet Discontinued 1 {tbl} PO DAILY 84 June 25, 2023 3:55pm June 29, 2024 3:41pm Start: 06-25-2023 take 1 tablet by tiffany th once daily Norgestimate-Ethinyl Estradiol Active 1 TABLET PO DAILY 84 June 25, 2023 3:55pm Start: 06-25-2023 take 1 tablet by tiffany th once daily Norgestimate-Ethinyl Estradiol Active 1 TABLET PO DAILY 84 June 25, 2023 2:55pm Start: 08-10-2019 End: 06-25-2023 Norgestimate-Ethinyl Estradi ol 1 EACH tablet Discontinued 1 NMA PO DAILY August 10, 2019 12:00am June 25, 2023 3:55pm Start: 08-10-2019 End: 06-25-2023 Norgestimate-Ethinyl Estradi ol Discontinued 1 EACH PO DAILY August 10, 2019 12:00am June 25, 2023 3:55pm Start: 08-10-2019 End: 06-25-2023 Norgestimate-Ethinyl Estradi ol Discontinued 1 EACH PO DAILY August 09, 2019 11:00pm June 25, 2023 2:55pm Start: 08-10-2019 Norgestimate-E thinyl Estradiol Active 1 EACH PO DAILY August 09, 2019 11:00pm Start: 08-10-2019 Norgestimate-E thinyl Estradiol Active 1 EACH PO DAILY August 10, 2019 12:00am Start: 02-05-2014 End: 03-04-2017 take 1 tablet by mouth once daily Sprintec 28 0.25-35 MG-MCG Oral Tablet 1 (one) Tablet Tablet qd for 30 days Refills: 0 Ordered: 04-Mar-2017 Cary Heaton RN Start : 05-Feb-2014 End : 04-Mar-2017 Inactive Start: 02-05-2014 End: 03-04-2017 take 1 tablet by mouth once daily Sprintec 28 0.25-35 MG-MCG Oral Tablet 1 (one) Tablet Tablet qd for 30 days Refills: 0 Ordered: 04-Mar-2017 Cary Heaton LPN Start : 05-Feb-2014 End : 04-Mar-2017 Inactive take 1 tablet by tiffany th once daily Sprintec 28 0.25-35 MG-MCG Oral Tablet 1 qd (0.25-35 MG-MCG) Active folic acid 0.8 mg oral capsule (20 sources) Start: 05-02-2018 take 1 capsule by mouth once daily Folic Acid 0.8 mg capsule Active 0.8 mg PO DAILY May 02, 2018 1:00am take 1 tablet by mouth once lainey y Folic Acid 400 MCG Oral Tablet 1 daily (400 MCG) Active pantoprazole 40 mg delayed release oral tablet (20 sources) Proton Pump Inhibitor Start: 01-01-2023 End: 06-19-2024 take 1 tablet by mouth once daily Pantoprazole 40 mg tablet,delayed release (DR/EC) Active 40 mg PO DAILY 90 4 June 19, 2024 3:49pm acid reflux Start: 12-22-2021 take 40 mg by mouth once daily Pantoprazole Active 40 MG PO DAILY 90 December 22, 2021 12:00am Start: 08-10-2014 End: 08-15-2015 take 1 tablet by mouth once daily PANTOPRAZOLE SODIUM, 40MG (Oral Tablet Delayed Release) 1 (one) Tablet DR daily for 360 days Refills: 0 Ordered: 15-Aug-2015 Amber Astorga LPN Start : 10-Aug-2014 End : 15-Aug-2015 Discontinued Comments: Dr Terry Comment on above: Dr Terry selenium 200 mcg capsule (18 sources) Start: 05-02-2018 take 1 capsule by mouth once daily selenium 200 mcg capsule Active 200 MCG PO DAILY May 02, 2018 12:00am Start: 05-02-2018 take 1 capsule by mo [facility] once daily selenium 200 mcg capsule Active 200 MCG PO DAILY May 02, 2018 1:00am Selenium 200 mcg capsule (4 sources) Start: 05-02-2018 take 1 capsule by mouth once daily Selenium 200 mcg capsule Active 200 ug PO DAILY May 02, 2018 1:00am Turmeric extract (20 sources) Start: 12-22-2021 take 1 capsule by mouth once daily Turmeric 400 mg capsule Active 400 mg PO DAILY December 22, 2021 12:00am Start: 12-22-2021 take 400 mg by mouth once lainey y Turmeric Active 400 MG PO DAILY December 21, 2021 11:00pm Start: 12-22-2021 take 400 mg by mouth once lainey y Turmeric Active 400 MG PO DAILY December 22, 2021 12:00am Start: 12-22-2021 Turmeric Activ e MG PO December 22, 2021 12:00am Upadacitinib (3 sources) Start: 12-16-2024 take 1 tablet by tiffany once daily Upadacitinib (Rinvoq) 45 mg tablet extended release 24 hr Active 45 mg PO daily 56 56 0 December 16, 2024 1:24pm February 09, 2025 12:00am Start: 12-14-2024 End: 12-16-2024 take 1 tablet by mouth once daily Upadacitinib (Rinvoq) 45 mg tablet extended release 24 hr Discontinued 45 mg PO daily 56 56 0 December 14, 2024 12:02pm February 07, 2025 12:00am December 16, 2024 1:25pm Start: 11-05-2024 End: 12-14-2024 take 1 tablet by mouth once daily Upadacitinib (Rinvoq) 45 mg tablet extended release 24 hr Discontinued 45 mg PO daily 84 84 0 November 05, 2024 12:00am January 27, 2025 12:00am December 14, 2024 12:04pm Vitamin B 12 (20 sources) Vitamin B12 Start: 08-24-2019 take 2 tablets by mouth once daily Cyanocobalamin (Vitamin B-12) 500 MCG tablet Active 1000 ug PO DAILY August 24, 2019 12:00am Start: 08-24-2019 take 1000 ug by mout h once daily Cyanocobalamin (Vitamin B-12) Active 1000 MCG PO DAILY August 24, 2019 12:00am Start: 07-27-2019 take 1 tablet by tiffany th once daily [facility] Vitamin B12 1000 MCG Oral Tablet 1 (one) Tablet daily for 30 days Quantity: 30 {Tablet} Refills: 3 Ordered: 21-Oct-2019 May Alicia DO, DO, Kathleen Start : 27-Jul-2019 Active Completed/Discontinued Medications Medication Drug Class(es) Dates Sig (Normalized) Sig (Original) acetaminophen 300 mg / codeine phosphate 30 mg oral tablet (20 sources) Opioid Agonist Start: 03-03-2013 End: 02-05-2014 TYLENOL WITH CODEINE #3, 300-30MG (Oral Tablet) 1 Tablet q6-8hrs prn pain for 0 days Quantity: 30 {Tablet} Refills: 0 Ordered: 05-Feb-2014 Cary Heaton RN Start : 03-Mar-2013 End : 05-Feb-2014 Inactive acetaminophen 325 mg / HYDROcodone bitartrate 5 mg oral tablet (20 sources) Opioid Agonist Start: 02-23-2021 End: 12-22-2021 Hydrocodone-Acetami nophen 5-325 mg tablet Discontinued 1 {tbl} PO EVERY 6 HOURS as needed for pain 14 3 0 February 23, 2021 December 22, 2021 9:46am Fracture of left ankle Other fracture of left lower leg, initial encounter for closed fracture Start: 02-23-2021 End: 12-22-2021 take 1 tablet by mouth every six hours Hydrocodone-Acetaminophen Discontinued 1 TABLET PO EVERY 6 HOURS 14 3 February 23, 2021 December 22, 2021 9:46am 0.4 ml adalimumab 100 mg/ml prefilled syringe (20 sources) Tumor Necrosis Factor Jayson Start: 11-06-2021 End: 12-22-2021 Adalimumab (Humira(Cf)) 40 mg/0.4 mL syringe kit Discontinued 40 mg SC EVERY WEEK November 06, 2021 12:00am December 22, 2021 9:46am End: 03-21-2022 Humira 40 MG/0.4ML Subcutane ous Prefilled Syringe Kit q week (40 MG/0.4ML) End : 21-Mar-2022 Discontinued Humira 40 MG/0.4 ML Subcutaneous Prefilled Syringe Kit q 2 weeks (40 MG/0.4ML) Active amoxicillin 875 mg / clavulanate 125 mg oral tablet (20 sources) Penicillin-class Antibacterial Start: 08-17-2015 End: 08-31-2015 take 1 tablet by mouth twice daily AUGMENTIN, 875-125MG (Oral Tablet) 1 Tablet bid for 14 days Quantity: 28 {Tablet} Refills: 0 Ordered: 17-Aug-2015 Madeleine Arreola Start : 17-Aug-2015 End : 31-Aug-2015 Inactive atropine sulfate 0.025 mg / diphenoxylate hydrochloride 2.5 mg oral tablet (20 sources) Anticholinergic, Cholinergic Muscarinic Antagonist, Antidiarrheal Start: 12-22-2021 End: 2022 take 1 tablet by mouth twice daily in the morning Diphenoxylate-Atr opine (Lomotil) 2.5-0.025 mg tablet Discontinued 1 {tbl} PO TWICE A DAY 180 0 February 02, 2022 9:41am 2022 11:32am diarrhea take 1 tab in the morning and 1 tab in the afternoon azaTHIOprine 50 mg oral tablet (20 sources) Purine Antimetabolite Start: 11-18-2012 End: 11-18-2012 take 3 tablets by mouth once daily IMURAN, 50MG (Oral Tablet) 3 (three) Tablet daily for 0 days Quantity: 360 {Tablet} Refills: 0 Ordered: 18-Nov-2012 Alisa Emerson DO Start : 18-Nov-2012 End : 18-Nov-2012 Discontinued benzonatate 200 mg oral capsule (4 sources) Non-narcotic Antitussive Start: 06-24-2024 End: 07-29-2024 take 1 capsule by mouth three times daily as needed for cough Benzonatate 200 mg capsule Discontinued 200 mg PO THREE TIMES A DAY as needed for cough 20 0 June 24, 2024 1:00am July 29, 2024 1:44pm Budesonide 3 MG Oral Capsule Delayed Release Particles (17 sources) Start: 08-10-2014 End: 03-04-2017 take 1 capsule by mouth once daily Budesonide 3 MG Oral Capsule Delayed Release Particles 1 (one) Capsule ER 24HR daily for 360 days Refills: 0 Ordered: 04-Mar-2017 Cary Heaton RN Start : 10-Aug-2014 End : 04-Mar-2017 Inactive Comments: Dr Terry Start: 08-10-2014 End: 03-04-2017 take 1 capsule by mouth once daily Budesonide 3 MG Oral Capsule Delayed Release Particles 1 (one) Capsule ER 24HR daily for 360 days Refills: 0 Ordered: 04-Mar-2017 Cary Heaton LPN Start : 10-Aug-2014 End : 04-Mar-2017 Inactive Comments: Dr Terry Comment on above: Dr Terry chlorpheniramine maleate 4 mg oral tablet (20 sources) Histamine-1 Receptor Antagonist Start: End: 017 take 1 tablet by mouth once daily at bedtime Chlorpheniramine Maleate 4 MG Oral Tablet 1 (one) Tablet Tablet daily at bedtime for 0 days Quantity: 30 {Tablet} Refills: 0 Ordered: 04-Mar-2017 Cary Heaton RN Start : 06-Sep-2015 End : 04-Mar-2017 Inactive ciprofloxacin 500 mg oral tablet (20 sources) Quinolone Antimicrobial Start: 015 End: 016 take 1 tablet by mouth twice daily CIPROFLOXACIN HCL, 500MG (Oral Tablet) 1 (one) Tablet two times daily for 360 days Refills: 0 Ordered: 15-Aug-2015 Amber Astorga LPN Start : 10-Aug-2014 End : 15-Aug-2015 Discontinued Comments: Dr Terry Start: 03-17-2010 End: 06-10-2014 take 1 tablet by mouth twice daily CIPRO, 500MG (Oral Tablet) 1 Tablet bid for 0 days Quantity: 20 {Tablet} Refills: 0 Ordered: 10-Jun-2014 Cary Heaton RN Start : 03-May-2014 End : 10-Jun-2014 Inactive Comment on above: Dr Terry 24 hr clarithromycin 500 mg extended release oral tablet (20 sources) Macrolide Antimicrobial Start: 3 End: 3 take 2 tablets by mouth once daily BIAXIN XL PAC, 500MG (Oral Tablet Extended Release 24 Hour) 2 (two) Tablet ER 24HR daily for 10 days Quantity: 20 {Tablet_ER_24HR} Refills: 0 Ordered: 09-Mar-2013 Maxwell Madeleine Start : 09-Mar-2013 End : 19-Mar-2013 Inactive Start: 03-09-2013 End: 03-19-2013 take 2 tablets by mouth once daily BIAXIN XL PAC, 500MG (Oral Tablet Extended Release 24 Hour) 2 (two) Tablet ER 24HR daily for 10 days Quantity: 20 {Tablet_ER_24HR} Refills: 0 Ordered: 09-Mar-2013 Maxwell MENDOZAMadeleine E Start : 09-Mar-2013 End : 19-Mar-2013 Inactive clotrimazole 10 mg oral lozenge (20 sources) Azole Antifungal Start: 08-15-2015 End: 08-22-2015 CLOTRIMAZOLE, 10MG (Mouth/Throat Glenn) 1 (one) Glenn 5 times daily for 10 days Quantity: 50 {Glenn} Refills: 0 Ordered: 22-Aug-2015 Amber Astorga LPN Start : 15-Aug-2015 End : 22-Aug-2015 Discontinued colestipol hydrochloride 1000 mg oral tablet (20 sources) Bile Acid Sequestrant Start: 12-22-2021 End: 02-02-2022 take 2 g by mouth at bedtime Colestipol Discontinued 2 GM PO AT BEDTIME 60 December 22, 2021 10:32am February 02, 2022 9:41am Start: 12-22-2021 End: 02-02-2022 Colestipol 1 gram tablet Discontinued 2 g PO AT BEDTIME 60 1 December 22, 2021 10:32am February 02, 2022 9:41am diarrhea take 1 tablet by tiffany once daily Colestipol HCl 1 GM Oral Tablet 1 daily (1 GM) Inactive dexamethasone 6 mg oral tablet (8 sources) Corticosteroid Start: 06-24-2024 End: 07-29-2024 take 1 tablet by mouth once daily Dexamethasone 6 mg tablet Discontinued 6 mg PO DAILY 5 June 30, 2024 9:30am July 29, 2024 1:44pm dicyclomine hydrochloride 20 mg oral tablet (20 sources) Anticholinergic Start: 12-22-2021 End: 02-02-2022 take 1 tablet by mouth twice daily Dicyclomine 20 mg tablet Discontinued 20 mg PO TWICE A DAY 60 December 22, 2021 12:00am February 02, 2022 9:41am abdominal cramping/pain Start: 07-07-2014 End: 08-10-2014 take 1 tablet by mouth four times daily DICYCLOMINE HCL, 20MG (Oral Tablet) 1 (one) Tablet Tablet qid for 0 days Quantity: 30 {Tablet} Refills: 0 Ordered: 10-Aug-2014 Lisset Logan LPN Start : 07-Jul-2014 End : 10-Aug-2014 Discontinued BEYAZ, 3-0.02-0.451MG (Oral Tablet) (20 sources) Progestin, Estrogen Start: 04-02-2012 End: 04-02-2012 take 1 tablet by mouth once daily BEYAZ, 3-0.02-0.451MG (Oral Tablet) 1 Tablet qd for 30 days Quantity: 3 {Tablet} Refills: 0 Ordered: 02-Apr-2012 May Alicia DO, DO, Kathleen Start : 02-Apr-2012 End : 02-Apr-2012 Discontinued Comments: per dr eliseo das bc of sx currently Comment on above: per dr eliseo das b c of sx currently ergocalciferol 1.25 mg oral capsule (20 sources) Provitamin D2 Compound Start: 03-30-2011 End: 04-02-2012 take 1 capsule by mouth once daily SASHA [id number] (Oral Capsule) 1 Capsule daily for 0 days Quantity: 30 {Capsule} Refills: 0 Ordered: 02-Apr-2012 Cary Heaton RN Start : 30-Mar-2011 End : 02-Apr-2012 Inactive 21 day ethinyl estradiol 0.223900 mg/hr / etonogestrel 0.005 mg/hr vaginal system (20 sources) Progestin, Estrogen Start: 12-12-2012 End: 02-05-2014 NUVARING, 0.12-0.015MG/24HR (Vaginal Ring) 1 Ring q week for 30 days Refills: 0 Ordered: 05-Feb-2014 Cary Heaton RN Start : 12-Dec-2012 End : 05-Feb-2014 Inactive fluticasone propionate 0.05 mg/actuat metered dose nasal spray (20 sources) Corticosteroid Start: 03-30-2011 End: 04-02-2012 FLONASE, 50MCG/ACT (Nasal Suspension) 1 1/2 (one and a half) Puff(s) once daily for 0 days Quantity: 1 {Suspension} Refills: 0 Ordered: 02-Apr-2012 Cary Heaton RN Start : 30-Mar-2011 End : 02-Apr-2012 Inactive Hydrocortisone Acetate 25 mg suppository (1 source) Start: 11-05-2024 End: 11-26-2024 Hydrocortisone Acetate 25 mg suppository Discontinued 25 mg RC TWICE A DAY 42 21 0 November 05, 2024 12:00am November 25, 2024 12:00am November 26, 2024 12:07am hyoscyamine sulfate 0.125 mg oral tablet (9 sources) Start: 03-18-2023 End: 06-25-2023 take 1 tablet by mouth three times daily Hyoscyamine Sulfate 0.125 mg tablet Discontinued 0.125 mg PO THREE TIMES A DAY 90 30 1 March 18, 2023 12:00am June 25, 2023 3:33pm dyspepsia krill oil 500 mg oral capsule (17 sources) take 1 capsule by mouth once daily MegaRed Isom-3 Krill Oil 500 MG Oral Capsule 1 qd (500 MG) Active L. Acidophilus-L. Rhamnosus (Digestive Health Probiotic) 10 billion cell capsule (20 sources) Start: 11-06-2021 End: 12-22-2021 L. Acidophilus-L. Rhamnosus (Digestive Health Probiotic) 10 billion cell capsule Discontinued NMA PO November 06, 2021 12:00am December 22, 2021 10:05am Start: 11-06-2021 End: 12-22-2021 L. Acidophilus-L. Rhamnosus (Digestive Health Probiotic) 10 billion cell capsule Discontinued CAP PO November 05, 2021 11:00pm December 22, 2021 9:05am Start: 11-06-2021 End: 12-22-2021 L. Acidophilus-L. Rhamnosus (Digestive Health Probiotic) 10 billion cell capsule Discontinued CAP PO November 06, 2021 12:00am December 22, 2021 10:05am lactobacillus acidophilus 16 mg oral capsule (20 sources) Start: 07-07-2014 take 2 capsules by mouth once daily DIGESTIVE HEALTH PROBIOTIC (Oral Capsule) 2 (two) Capsule Capsule daily for 0 days Quantity: 30 {Capsule} Refills: 0 Ordered: 26-Jul-2014 Lisset Logan LPN Start : 07-Jul-2014 Active MegaRed Isom-3 Krill Oil 500 MG Oral Capsule (3 sources) take 1 capsule by mouth once daily MegaRed Isom-3 Krill Oil 500 MG Oral Capsule 1 qd (500 MG) Inactive take 1 capsule by mouth once buzz ly MegaRed Isom-3 Krill Oil 500 MG Oral Capsule 1 qd (500 MG) Active methylPREDNISolone 4 mg oral tablet (20 sources) Corticosteroid Start: 03-03-2013 End: 03-09-2013 MEDROL (BRUCE), 4MG (Oral Tablet) 1 Tablet TAD for 0 days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 BGI established 12.22.21 to establish care for previously diagnosed Crohn???s disease. Symptoms started 2009 with BRBPR; initially treated with budesonide and azathioprine, ineffective. Underwent cholecystectomy 2014 and surgeon told her she did not have Crohn???s and therapy was stopped. Did well until 2018 when symptoms returned and established with GI in [place] who started Humira, increased dosing to weekly with symptom improvement but no remission. Rachellera started with symptom improvement but continues to have difficulty with abd pain, nausea, loose stools, urgency related incontinence and intermittent presence of blood OV 9.2.22 continue Lomotil, colestipol and dicyclomine for symptom [...] 05.22.22 gastric ulceration, inflammatory changes noted starting [id number] with diffused chenges and worsening with progression through small bowel until reaching TI. Consider changing therapy to Skyrizi ? CT abd/pel 05.03.22 hepatomegaly 25cm, homogenous. OV 06.26.22 doing much better; feels symptoms were related to high stress of her last job. Currently using Stelara Q4W, colestipol 2g QHS, dicyclomine 20mg BID and Lomotil 1tab BID. Begin reduction of medications util (more content not included)... Normal [facility] Office Visit Reporton 2024 Office Visit Report [facility] [address] [place] [address] OFFICE VISIT Date of Service: 06/24/24 MR#: [id number] Acct: [id number] Patient: DIANE DESHPANDE Rep #: [id number] : 1990 Provider: CHINTAN Brower Age/Sex: 34/F Location: [facility] Status: Signed Intake Vital Signs 06/25/23 14:27 Height 5 ft 6.93 in Intake Visit Reasons: EMPLOYEE COVID TEST/ [employer] Chief Complaint: Possible Sleep Apnea Allergies No Known Allergies Allergy (Verified 08/05/24 14:56) Office Procedures Now [facility] Billing Sheet Covid Covid Swab-Rapid: Yes Results POC CEPH COV,FluAB,RSV PCR CEPHEID COVID PCR DETECTED Last Edit by Lizy Chan MA on 06/24/24 15:11 CEPHEID FLU AB PCR NOT DETECTED FLU A B Last Edit by Lizy Chan MA on 06/24/24 15:11 CEPHEID RSV PCR NOT DETECTED Last Edit by Lizy Chan MA on 06/24/24 15:11 11/10/24 1428 Date Ramses Baxter Signature: Date (if applicable) CC: Normal [facility] Gastroenterology Visit Repor ton 11-04-2024 Gastroenterology Visit Report [facility] [address] [place] [address] OFFICE VISIT Date of Service: 11/04/24 MR#: [id number] Acct: [id number] Name: DIANE DESHPANDE Rep #: [id number] : 1990 Provider: Valentin Whitmore DO Age/Sex: 34/F Location: [facility] Status: Signed Intake Vital Signs 06/25/23 14:27 08/05/24 14:57 Height 5 ft 6.93 in 5 ft 7 in Intake Visit Reasons: 4 M FU Allergies No Known Allergies Allergy (Verified 08/05/24 14:56) Medications ???Medication ???Instructions ???Recorded ???Confirmed ???Type folic acid 0.8 mg capsule 0.8 mg PO DAILY 05/02/18 11/04/24 History selenium 200 mcg capsule 200 mcg PO DAILY 05/02/18 11/04/24 History cyanocobalamin (vitamin B-12) 500 1,000 mcg PO DAILY 08/24/1911/04 History mcg tablet cholecalciferol (vitamin D3) 25 25 mcg PO DAILY 12/22/21 11/04/24 History mcg (1,000 unit) capsule turmeric 400 mg capsule 400 mg PO DAILY 12/22/21 11/04/24 History clotrimazole-betametha sone 1 1 applic topical BID 2 weeks #45 0 06/25/23 11/04/24 Rx %-0.05 % topical cream grams budesonide 3 mg 3 mg PO BID #60 ea 10/29/23 Rx capsule,delayed,extend ed release ustekinumab 90 mg/mL subcutaneous 90 mg subcut Q4W #1 mL 10/29/23 0 11/04/24 Rx syringe (Stelara) celecoxib 200 mg capsule (Celebrex) 200 mg PO QDAY #30 caps 5 11/04/24 Rx pantoprazole 40 mg tablet,delayed 40 mg PO DAILY acid reflux #90 ta bs 06/19/24 11/04/24 Rx release Sprintec (28) 0.25 mg-0.035 mg 1 tab PO DAILY #84 tabs 06/29/24 0 11/04/24 Rx tablet (norgestimate-ethinyl estradiol) PENDING SALE TO [facility] Medical History Thoracic myofascial strain Left shoulder strain Injury of left shoulder Wears contact lenses Depression Anxiety Arthritis High cholesterol Migraine headache Injury of head and neck History of GI bleed History of Crohn's disease Gastric reflux Non-smoker Painful defecation Vertigo Malnutrition Vitamin B12 deficiency Mixed hyperlipidemia Radiculopathy, cervical region Low back pain Unspecified abdominal pain Headache Proteinuria Viral URI Electrocution, initial encounter Surgical History Hx of colonoscopy History of esophagogastroduodenos copy (EGD) H/O adenoidectomy History of tonsillectomy History of cholecystectomy Family History Grandmother Diabetes Asthma Grandfather Diabetes Heart disease Kidney disease Father Diabetes Mother Hypertension Uterine cancer Other Thyroid disorder Social History number of children: 0 current occupational status: employed 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 BGI established 12.22.21 to establish care for previously diagnosed Crohn???s disease. Symptoms started 2009 with BRBPR; initially treated with budesonide and azathioprine, ineffective. Underwent cholecystectomy 2014 and surgeon told her she did not have Crohn???s and therapy was stopped. Did well until 2018 when symptoms returned and established with GI in [place] who started Humira, increased dosing to weekly with symptom improvement but no remission. Stelara started with symptom improvement but continues to have difficulty with abd pain, nausea, loose stools, urgency related incontinence and intermittent presence of blood OV 9.. continue Lomotil, colestipol and dicyclomine for symptom [...] 05.22.22 gastric ulceration, inflammatory changes noted starting [id number] with diffused chenges and worsening with progression through small bowel until reaching TI. Consider changing therapy to Skyrizi ? CT abd/pel 05.03.22 hepatomegaly 25cm, homogenous. OV 06.26.23 doing much better; feels symptoms were related to high stress of her last job. Currently using Stelara Q4W, colestipol 2g QHS, dicyclomine 20mg BID and Lomotil 1tab BID. Begin reduction of (more content not included)... Normal [facility] PAP IG HPV APTIMA 16/18,45on 08-13-2024 ADEQ Comment Normal . [facility] Comment on above: Order Comment: Speci men Comment: [id number] Specimen Comment: Source.............Cervix Specimen Comment: No. of containers..01 ThinPrep Vial Result Comment: Sati sfactory for evaluation. Endocervical and/or squamous metaplastic cells (endocervical component) are present. Areas of partially obscuring blood are present. Performed By: #### L 7400.0280 #### [facility] [address] [place], [place], [id number] COMM . Normal . [facility] Comment on above: Order Comment: Speci men Comment: [id number] Specimen Comment: Source.............Cervix Specimen Comment: No. of containers..01 ThinPrep Vial Performed By: #### L 7400.0280 #### [facility] [address] [place], [address] COMMENT Comment Normal . [facility] Comment on above: Order Comment: Speci men Comment: [id number] Specimen Comment: Source.............Cervix Specimen Comment: No. of containers..01 ThinPrep Vial Result Comment: This liquid based ThinPrep(R) pap test was screened with the use of an image guided system. Performed By: #### L 7400.0280 #### [facility] [address] [place], [place], [id number] DIAG Comment Normal . [facility] Comment on above: Order Comment: Speci men Comment: [id number] Specimen Comment: Source.............Cervix Specimen Comment: No. of containers..01 ThinPrep Vial Result Comment: NEGA TIVE FOR INTRAEPITHELIAL LESION OR MALIGNANCY. SPECIMEN REPROCESSED FOR INTERPRETATION USING GLACIAL ACETIC ACID (GAA). Performed By: #### L 7400.0280 #### [facility] [address] [place], [place], [id number] HPV APTIMA, HR Negative Normal Negative [facility] Comment on above: Order Comment: Speci men Comment: [id number] Specimen Comment: Source.............Cervix Specimen Comment: No. of containers..01 ThinPrep Vial Result Comment: This nucleic acid amplification test detects fourteen high- risk HPV types (16,18,31,33,35,39,45,51,52,56,58,59,66,68) without differentiation. Performed By: #### L 7400.0280 #### [facility] [address] [place], [place], [id number] HPV Natty Rfx Comment Normal . [facility] Comment on above: Order Comment: Speci men Comment: [id number] Specimen Comment: Source.............Cervix Specimen Comment: No. of containers..01 ThinPrep Vial Result Comment: Crit eria not met, HPV Genotype not performed. Performed at: - [facility] [id number] Worship Leader: Pat Gibson MD, Phone: [phone] Performed at: = - [facility] [id number] Worship Leader: Pat Gibson MD, Phone: [phone] Performed By: #### L 7400.0280 #### [facility] [address] [facility] [id number] PAPSMR Comment Normal . [facility] Comment on above: Order Comment: Speci men Comment: [id number] Specimen Comment: Source.............Cervix Specimen Comment: No. of containers..01 ThinPrep Vial Result Comment: The Pap smear is a screening test designed to aid in the detection of premalignant and malignant conditions of the uterine cervix. It is not a diagnostic procedure and should not be used as the sole means of detecting cervical cancer. Both false-positive and false-negative reports do occur. Performed By: #### L 7400.0280 #### [facility] [address] [place], [place], [address] PERFORM Comment Normal . [facility] Comment on above: Order Comment: Speci men Comment: [id number] Specimen Comment: Source.............Cervix Specimen Comment: No. of containers..01 ThinPrep Vial Result Comment: Poly Diez, Chocolate Packer (ASCP) Performed By: #### L 7400.0280 #### [facility] [address] [place], [place], [address] QC REV Comment Normal . [facility] Comment on above: Order Comment: Speci men Comment: [id number] Specimen Comment: Source.............Cervix Specimen Comment: No. of containers..01 ThinPrep Vial Result Comment: Steve Buckner, Chocolate Packer (ASCP) Performed By: #### L 7400.0280 #### [facility] [address] [place], [place], [id number] Surgical pathology reportOrd ered By: Elis Blanco on 08-11-[address] [facility] Cervical or vaginal specimen microscopic examination by liquid based cytology (reportOrdered By: Greta Shirley on 08-05-2024 Cytology report Cyto stain.thin prep Doc (Cvx/Vag) Comment . [facility] Comment on above: Criteria not met, HP V Genotype not performed.Performed at: - [address] [id number] Director: Pat Gibson MD, Phone: [phone] at: = - [facility] [id number] Director: Pat Gibson MD, Phone: [phone] Cervical or vagninal specime n microscopic examination by cytology stain (reported asOrdered By: Greta Shirley on 08-05-2024 Cytology report Cyto stain Doc (Cvx/Vag) Comment . [facility] Comment on above: The Pap smear is a s creening test designed to aid in thedetection of premalignant and malignant conditions of theuterine cervix. It is not a diagnostic procedure andshould not be used as the sole means of detecting cervicalcancer. Both false-positive and false-negative reports dooccur. Photovoltaic Power Systems Engineer Cyto stain Nom (C vx/Vag) [ID]Ordered By: Greta Shirley on 08-05-2024 Pap Smear Performed By Comment . [facility] Comment on above: Peter Garcia ytotechnologist (ASCP) Cytology report Cyto stain D oc (Cvx/Vag)Ordered By: Greta Shirley on 08-05-2024 Thin Prep Pap Smear Comment . [facility] Comment on above: The Pap smear is a s creening test designed to aid in thedetection of premalignant and malignant conditions of theuterine cervix. It is not a diagnostic procedure andshould not be used as the sole means of detecting cervicalcancer. Both false-positive and false-negative reports dooccur. Cytology report Cyto stain.t hin prep Doc (Cvx/Vag)Ordered By: Greta Shirley on 08-05-2024 HPV Genotype Special Info Comment . [facility] Comment on above: Criteria not met, HP V Genotype not performed.Performed at: - [address] [id number] Director: Pat Gibson MD, Phone: [phone] at: =[address] [id number] Director: Pat Gibson MD, Phone: [phone] Detection in cervical specim en of any of human papilloma virus (HPV) 16, 18, 31, 33,Ordered By: Greta Shirley on 08-05-2024 HPV 16+18+31+33+35+39+45+5 1+52+56+58+59+66+68 DNA Probe+sig amp Ql (Cvx) Negative Negative [facility] Comment on above: This nucleic acid am plification test detects fourteen high- risk HPV types (16,18,31,33,35,39,45,51,52,56,58,59,66,68)without differentiation. HPV 16+18+31+33+35+39+45+51+ 52+56+58+59+66+68 DNA Probe+sig amp Ql (Cvx)Ordered By: Greta Shirley on 08-05-2024 Human Papillomavirus High Risk Negative Negative [facility] Comment on above: This nucleic acid am plification test detects fourteen high- risk HPV types (16,18,31,33,35,39,45,51,52,56,58,59,66,68)without differentiation. Image-guided ThinPrep PapOrd ered By: Greta Shirley on 08-05-2024 Pap Smear Note Comment . [facility] Comment on above: This liquid based Th inPrep(R) pap test was screened withthe use of an image guided system. Image-guided liquid-based Pa pOrdered By: Greta Shirley on 08-05-2024 Pap Smear Diagnosis Comment . [facility] Comment on above: NEGATIVE FOR INTRAEP ITHELIAL LESION OR MALIGNANCY.SPECIMEN REPROCESSED FOR INTERPRETATION USING GLACIAL ACETIC ACID(GAA). Laboratory - CytologyOrdered By: Greta Shirley on 08-05-2024 Photovoltaic Power Systems Engineer Cyto stain Nom (Cvx/Vag) [ID] Comment . [facility] Comment on above: Peter Garciaotechnologist (ASCP) Laboratory - Miscellaneous t estsOrdered By: Greta Shirley on 08-05-2024 Service comment (Unsp spec) [Interp] . . [facility] No Panel InformationOrdered By: Greta Shirley on 08-05-2024 Pap Smear QC Review Comment . [facility] Comment on above: Dolly Uribe echnologist (ASCP) Pap Smear Specimen Adequacy Comment . [facility] Comment on above: Satisfactory for monique luation. Endocervical and/or squamous metaplasticcells (endocervical component) are present.Areas of partially obscuring blood are present. Operation Supervisor Office Visit Reporton 08-05-2024 Operation Supervisor Office Visit Report [facility] [address], [address] [place] [address] OFFICE VISIT Date of Service: 08/05/24 MR#: [id number] Acct: [id number] Name: DIANE DESHPANDE Rep #: [id number] : 1990 Provider: Dr. Greta Jacob DO Age/Sex: 33/F Location: [facility] Status: Signed Intake Vital Signs 06/29/24 14:16 07/30/24 09:09 08/05/24 14:56 08/05/24 14:57 Height 5 ft 6.93 in 5 ft 7 in 5 ft 7 in 5 ft 7 in Weight: 307 lb 8 oz BMI 48.2 BP 142/90 H Intake Visit Reasons: EMB (PER MH- SM OR JV) Tumbler Tender Required: No Is patient in pain?: No Allergies No Known Allergies Allergy (Verified 08/05/24 14:56) Medications ???Medication ???Instructions ???Recorded ???Confirmed ???Type folic acid 0.8 mg capsule 0.8 mg PO DAILY 05/02/18 08/05/24 History selenium 200 mcg capsule 200 mcg PO DAILY 05/02/18 08/05/24 History cyanocobalamin (vitamin B-12) 500 1,000 mcg PO DAILY 08/24/1908/05 History mcg tablet cholecalciferol (vitamin D3) 25 25 mcg PO DAILY 12/22/21 08/05/24 History mcg (1,000 unit) capsule turmeric 400 mg capsule 400 mg PO DAILY 12/22/21 08/05/24 History clotrimazole-betametha sone 1 1 applic topical BID 2 weeks #45 0 06/25/23 08/05/24 Rx %-0.05 % topical cream grams budesonide 3 mg 3 mg PO BID #60 ea 10/29/23 Rx capsule,delayed,extend ed release ustekinumab 90 mg/mL subcutaneous 90 mg subcut Q4W #1 mL 10/29/23 0 08/05/24 Rx syringe (Stelara) celecoxib 200 mg capsule (Celebrex) 200 mg PO QDAY #30 caps 5 08/05/24 Rx pantoprazole 40 mg tablet,delayed 40 mg PO DAILY acid reflux #90 ta bs 06/19/24 08/05/24 Rx release Sprintec (28) 0.25 mg-35 mcg 1 tab PO DAILY #84 tabs 06/29/24 0 08/05/24 Rx tablet (norgestimate-ethinyl estradiol) Post menopausal: No Patient : No : No PFSH PFSH Medical History Thoracic myofascial strain Left shoulder strain Injury of left shoulder Wears contact lenses Depression Anxiety Arthritis High cholesterol Migraine headache Injury of head and neck History of GI bleed History of Crohn's disease Gastric reflux Non-smoker Painful defecation Vertigo Malnutrition Vitamin B12 deficiency Mixed hyperlipidemia Radiculopathy, cervical region Low back pain Unspecified abdominal pain Headache Proteinuria Viral URI Electrocution, initial encounter Surgical History Hx of colonoscopy History of esophagogastroduodenos copy (EGD) H/O adenoidectomy History of tonsillectomy History of cholecystectomy Family History Grandmother Diabetes Asthma Grandfather Diabetes Heart disease Kidney disease Father Diabetes Mother Hypertension Uterine cancer Other Thyroid disorder Social History number of children: 0 current occupational status: employed 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 She has a 6 cm fibroid in the midbody of her 10 cm size uterus. Her mother has uterine cancer currently and is undergoing radiation. She has had heavy periods for several years and recently while being treated for crohn's disease by Dr. Whitmore, was found to have the fibroid as discussed above. She is worried that she will develop uterine cancer like her mom and is not interested in having children. She works at [employer] OR and states that later in the year she would have time to take 6 weeks off to heal from surgery. She consents to an endometrial biopsy today. ROS Const ROS Unobtainable: All systems reviewed are unremarkable except as noted in H Resp Resp: Reports system reviewed and no additional complaints, except as documented; Denies cough GI GI: Reports as per HPI Psych Psych: Reports system reviewed and no additional complaints, except as documented Exam Const General: cooperative, healthy appearing, comfortable and no acute distress Resp Effort Inspection: normal respiratory effort General: bimanual renal exam normal bilaterally External Female Exam: normal appearance of the urethra Urethra: normal appearance of the urethra Speculum Exam - Vagina: normal maral (more content not included)... Normal [facility] Service comment (Unsp spec) [Interp]Ordered By: Greta Shirley on 08-05-2024 Pap Smear Comment (3) . . [facility] Surgery Specimen Level [facility] 08-05-2024 Surgery Specimen Level IV ---- Patient Age/Sex Location Account Attending Physician ---- DIANE DESHPANDE 33/F [facility] [id number] Dr. Greta Morse, Jose ---- Specimen: [id number] Received: 08/06/24 Status: DANIAL Linton Num: [id number] Spec Type: ENDOM BX/C Subm Dr: Dr. Greta Morse DO HEADER OPERATION: Endometrial biopsy PRE-OP DIAGNOSIS: Menorrhagia TISSUE SUBMITTED: Endometrial lining ---- MICROSCOPIC DIAGNOSIS Endometrium biopsy: * Fragmented benign endometrium with extensive shedding stroma, consistent with menstrual phase. MICROSCOPIC DESCRIPTION Slides are reviewed. GROSS DESCRIPTION Received in formalin labeled, Eneida Deshpande, and not designated, are multiple red-brown, hemorrhagic, soft tissue fragments and mucus that aggregate to 2.0 x 2.0 x 0.2 cm. Totally submitted in one cassette. 08/06/2024 CPT:11615 ---- Patient Age/Sex Location Account Attending Physician ---- DI[facility] DESHPANDE 33[id number] Greta Morse, Jose ---- Signed (signature on file) Dr. Elis Blanco MD 08/11/24 1146 ---- Normal [facility] Comment on above: Performed By: #### P SUIV ####[facility] [id number] [place], [place], [address] Pulmonary Visit Reporton Pulmonary Visit Report [facility] [address] [place] [address] OFFICE VISIT Date of Service: 07/30/24 MR#: [id number] Acct: [id number] Name: DIANE DESHPANDE Rep #: [id number] : 1990 Provider: LANDY Hartmann Age/Sex: 33/F Location: [facility] Status: Signed Assessment and Plan Assessment and Plan (1) Daytime hypersomnia: Status: Acute Comment: Negative PSG Plan: Negative PSG, and the patient feels it was an accurate representation of her average sleep. Reviewed good sleep hygiene. She notes that she could probably see benefit from putting her phone away an hour before bed. No additional testing, not repeating the PSG. She will call the office if she sees the need for another visit. Sleep hygiene education was provided to her at checkout. Sleep Hygiene: It is important to avoid using your phone for one hour before bedtime. Avoid watching TV, reading, using the computer or other activities in your bed. These should be done in a different room and the bedroom should be reserved for sleep only. The purpose of this is to remove stimuli from your bedroom that may interfere with sleep. It is also important to stop drinking beverages with caffeine after noontime. It is also important to avoid tobacco and alcohol use before bedtime. Stimulus control. Pick a time to wake up in the morning and stick to that time all 7 days a week. Go to bed only when sleepy. If no sleep occurs after 20-30 min then get up out of bed and do something boring in a different room and return when sleepy. Add up the average amount of total amount of sleep time you feel you get a night and subtract that from your wake time. That should be your bedtime. This should not be less than 6 hrs. Example. If you wake up at 700 AM and sleep 6 and half hours total at night then your bedtime should not be earlier than 1230 at night. Avoid daytime naps. (2) Obesity: Status: Chronic Qualifiers: Obesity type: due to excess calories Obesity classification: adult class 3 (BMI >= 40) Serious obesity comorbidity presence: with serious comorbidity Body mass index: BMI 45.0-49.9 Qualified Code(s): E66.813 - Obesity, class 3; E66.01 - Morbid (severe) obesity due to excess calories; Z68.42 - Body mass index [BMI] 45.0-49.9, adult Plan: Complicates exam, plan, care and prognosis. The patient conveys understanding. Encourage healthy weight loss. Plan Details Follow Up: 3 Months ([facility]) HPI 1 M FU Chief Complaint: test results HPI Comments Details: This patient presents to the office today to discuss test results. She is ambulatory and currently on room air. She has not been seen in the ED or urgent care for any respiratory illness. She has not been prescribed any antibiotics or prednisone for breathing problems. She does report shortness of breath. She continues to have a daily dry cough. She reports wheezing but denies any chest tightness, chest pain or palpitations. She has not had any fever, chills or body aches. She does not have trouble falling asleep. She sometimes has trouble staying asleep. She states that on a bad night she wakes up every 30 minutes. Some nights she only wakes up once or twice. It is not usually for nocturia. She usually goes to bed between 930 and 10 PM. She has to get up at 3 AM Saturday through Saturday for work. She does sleep in until 7 or 8 AM on the weekends. She does not frequently nap. She usually sleeps on her side, or even on her stomach. She rarely sleeps on her back. She feels as though the polysomnogram was a good reflection of normal sleep for her. She does not snore. She has not had witnessed episodes of apnea. She admits that she does use her cell phone before bedtime and believes that she could benefit from putting it away earlier. She does not drink alcohol. She does not drink much caffeine, and certainly does not have caffeine in the afternoon. She does read occasionally before bedtime, however it is not a boring task and does not typically cause her to be drowsy. Test results personally reviewed with the patient: Polysomnogram completed on 07/10/24. Overall AHI 3.8 events per hour. No sleep was recorded in the supine position. Clinical correlation is suggested. Intake Vital Signs 07/03/24 14:34 07/30/24 09:09 Height 5 ft 6.93 in 5 ft 7 in Weight: 310 lb BMI 48.5 BP 145/89 H Blood Pressure Location Lt radial Position Sitting Respiration 18 Pulse 86 Pulse Source Monitor Temp 97.7 F L Temperature Source Temporal Artery Pulse Oximetry (%) 98 Oxygen Delivery Method room air Intake Visit Reasons: 1 M FU Chief Complaint: Possible Sleep Apnea Tumbler Tender Required: No Accompanied by: Self Allergies No Known Allergies Allergy (Verified 07/30/24 14:08) Medications (more content not included)... Normal [facility] Enterography Abd/Zana 07-29 Enterography Abd/Pel [facility] Imaging Services [address] [place], [place] [id number] Enterography Abd/Pel MR#: [id number] Acct: [id number] Name: DIANE DESHPNADE Rep #: [id number] : 1990 F 33 From: Dimitri Luna i DO PCP: Dr. May Alicia, DO Status: REG CLI Study: Enterography Abd/Pel Date of Exam: 07/29/24 Exam# [id number] Ordering Dr: Valentin Whitmore DO EXAM: MR enterography without and with intravenous contrast. CLINICAL HISTORY: Crohn's disease of the small intestine without complication. Crohn's disease recheck. History of prior cholecystectomy 2014. COMPARISON: CT abdomen/pelvis 04/24/2024. TECHNIQUE: Multiplanar, multisequence MRI images of the abdomen/pelvis were obtained without and with intravenous contrast. 30 cc Clariscan IV contrast was administered. FINDINGS: The included osseous structures of the abdomen/pelvis are grossly unremarkable no large abdominal wall defect. 5.7 cm T2 hypointense mass of the uterus corresponding to suspected fibroid described on the CT abdomen/pelvis 04/24/2024. No abnormally dilated bowel segments. No drainable abdominal/pelvic fluid collection. No abdominal/pelvic ascites or adenopathy. There is moderate fluid signal in the stomach. The gallbladder is not demonstrated, absent by history. No abnormal dilation of the biliary tree. The superior aspect of the liver is not included on postcontrast images. The included portions of the liver, spleen, adrenal glands, pancreas, and kidneys are unremarkable. No gross bowel wall thickening or mesenteric inflammatory changes are demonstrated. MRI/Enterography Abd/Pel IMPRESSION: No acute findings in the abdomen/pelvis by MRI. No evidence of active inflammatory bowel disease. Similar-appearing 5.7 cm uterine fibroid. [facility] CC: Dr. May Alicia DO; Valentin Whitmore DO Electric Mule Driver: Signed Normal [facility] Magnetic resonance imaging r eportOrdered By: Dimitri Gomez on 07-29-2024 Study report [facility] Imaging Services [address] [place] [address] Enterography Abd/Pel MR#: [id number] Acct: [id number] Name: DIANE DESHPANDE Rep #: [id number] : 1990 F 33 From: Jennifer Gomez DO PCP: Dr. May Alicia DO Status: RE G CLI Study:Enterography Abd/Pel Date of Exam: 07/29/24 Exam# [id number] Ordering Dr: Sonny Whitmore DO EXAM: MR enterography without and with intravenous contrast. CLINICAL HISTORY: Crohn's disease of the small intestine without complication. Crohn's disease recheck. History of prior cholecystectomy 2014. COMPARISON: CT abdomen/pelvis 04/24/2024. TECHNIQUE: Multiplanar, multisequence MRI images of the abdomen/pelvis were obtained without and with intravenous contrast. 30 cc Clariscan IV contrast was administered. FINDINGS: The included osseous structures of the abdomen/pelvis are grossly unremarkable no large abdominal wall defect. 5.7 cm T2 hypointense mass of the uterus corresponding to suspected fibroid described on the CT abdomen/pelvis 04/24/2024. No abnormally dilated bowel segments. No drainable abdominal/pelvic fluid collection. No abdominal/pelvic ascites or adenopathy. There is moderate fluid signal in the stomach. The gallbladder is not demonstrated, absent by history. No abnormal dilation of the biliary tree. The superior aspect of the liver is not included on postcontrast images. The included portions of the liver, spleen, adrenal glands, pancreas, and kidneys are unremarkable. No gross bowel wall thickening or mesenteric inflammatory changes are demonstrated. MRI/Enterography Abd/Pel IMPRESSION: No acute findings in the abdomen/pelvis by MRI. No evidence of active inflammatory bowel disease. Similar-appearing 5.7 cm uterine fibroid. Reading Location: [facility] CC: Dr. May Alicia DO; Valentin Whitmore DO ~ Electric Mule Driver: Signed [facility] Pelvic w/ Transvaginalon Pelvic w/ Transvaginal [facility] Imaging Services [address] [place] [id number] Pelvic w/ Transvaginal MR#: [id number] Acct: [id number] Name: DIANE DESHPANDE Rep #: [id number] : 1990 F 33 From: Uri Shaver DO PCP: Dr. May Alicia DO Status: REG CLI Study: Pelvic w/ Transvaginal Date of Exam: 07/06/24 Exam# [id number] Ordering Dr: Jennifer Mcdaniel NP FLIGHT ATTENDANT/INFLIGHT SUPERVISOR Sheri PROCEDURE: PELVIC W/ TRANSVAGINAL REASON FOR EXAM: Uterine fibroid TECHNIQUE: Transabdominal and transvaginal pelvic ultrasound COMPARISON: None. FINDINGS: Uterus: Anteverted measuring 10.7 x 7.6 x 6.2 cm. Uterine fibroid measures 6.2 x 5.8 x 5.7 cm. Endometrium: Not well appreciated. No intrauterine seen. Right ovary: Not visualized. Left ovary: 2.4 x 3.1 x 1.9 cm. No masses or fluid collections are identified. Blood flow is demonstrated. Other adnexal findings: None. Cul-de-sac: No free intraperitoneal fluid identified. Urinary bladder measures 7.0 x 3.7 x 8.2 cm, for an estimated volume of 108.7 cc. US/Pelvic w/ Transvaginal IMPRESSION: 1. Uterine fibroid measures 6.2 x 5.8 x 5.7 cm. 2. No masses or fluid collections seen within the left ovary. 3. Right ovary is not well seen. Reading Location: [facility] CC: LANDY Mcdaniel; Dr. May Alicia DO Electric Mule Driver: Signed Normal [facility] Pulmonary Visit Reporton Pulmonary Visit Report [facility] Pulmonary Medicine of [address] [place] [address] OFFICE VISIT Date of Service: 07/03/24 MR#: [id number] Acct: [id number] Name: DIANE DESHPANDE Rep #: [id number] : 1990 Provider: LANDY Hartmann Age/Sex: 33/F Location: [facility] Status: Signed Assessment and Plan Assessment and Plan (1) Daytime hypersomnia: Status: Acute Plan: Suspicious for obstructive sleep apnea. We discussed the risks of obstructive sleep apnea as well as the pathophysiology of the disease process. Patient conveys understanding. We will proceed with a attended polysomnogram and return to the office once test results are available. The patient did make note that she is typically a belly sleeper. We can take this into consideration if treatment is indicated. (2) Obesity: Status: Chronic Qualifiers: Obesity type: due to excess calories Obesity classification: adult class 3 (BMI >= 40) Serious obesity comorbidity presence: with serious comorbidity Body mass index: BMI 45.0-49.9 Qualified Code(s): E66.813 - Obesity, class 3; E66.01 - Morbid (severe) obesity due to excess calories; Z68.42 - Body mass index [BMI] 45.0-49.9, adult Plan: Complicates exam, plan, care and prognosis. We discussed relationship between obesity and obstructive sleep apnea. The patient conveys understanding. Encourage healthy weight loss. Orders: Orders Polysomnography Today G47.10 - Hypersomnia, unspecified HPI HPI Comments Details: This patient presents to the office today for initial consultation regarding concern for obstructive sleep apnea. She is ambulatory and currently on room air. The patient reports that she was referred to be evaluated for obstructive sleep apnea, however she does not believe she snores. She admits that she does not feel rested when she wakes up in the morning. She also reports that she goes to bed around 10 PM and is up at 3 AM for work. She does admit to some napping. She has occasionally nodded off unintentionally. She is not particularly having difficulty with dry mouth. She states that she has headaches all the time. She does occasionally have some nocturia. She has never awakened herself by gasping for air. 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 She works five 8-hour shifts weekly. She has never seen a svp digital ad sales. She is a lifelong never smoker. She has never been prescribed an inhaler. Past medical family history significant for: Mother has hypertension and was recently diagnosed with uterine cancer. Father has diabetes type 1 and a thyroid disorder, as well as hyperlipidemia. Patient has 2 brothers, the oldest brother has no medical problems and the middle brother has hypertension. The patient does not currently have biological children. She does report shortness of breath, however she believes it is related to recently recovering from COVID. She continues to have a daily dry cough, also following the recent COVID diagnosis. She reports wheezing but denies any chest tightness, chest pain or palpitations. She has not had any fever, chills or body aches. STOP-BANG Assessment: 1. Do you snore? N 2. Are you frequently tired during the day? Y 3. Have you been observed gasping or choking while asleep? N 4. Do you have high blood pressure? N 5. BMI - greater than 35kg/m2? Y 6. Age - over 50 years old? N 7. Neck Circumference - greater than 37 cm for females or 40 cm for males? N 8. Gender - male? Y Total STOP-BANG score = 3 which indicates HIGH risk for obstructive sleep apnea (yes to 3 or more questions = high risk of sleep apnea). Intake Vital Signs 06/25/23 14:27 07/03/24 14:34 Height 5 ft 6.93 in 5 ft 6.93 in Weight: 300 lb BMI 47.0 BP 124/88 H Blood Pressure Location Lt brachial Position Sitting Respiration 18 Pulse 70 Pulse Source Monitor Temp 97.2 F L Temperature Source Temporal Artery Pulse Oximetry (%) 100 Oxygen Delivery Method room air Intake Visit Reasons: Sleep apnea Chief Complaint: Possible Sleep Apnea Is patient in pain?: No Allergies No Known Allergies Allergy (Verified 07/03/24 14:34) Medications ???Medication ???Instructions ???Recorded ???Confirmed ???Type folic acid 0.8 mg capsule 0.8 mg PO DAILY 05/02/18 07/03/24 History selenium 200 mcg capsule 200 mcg PO DAILY 05/02/18 07/03/24 History cyanocobalamin (vitamin B-12) 500 1,000 mcg PO DAILY 08/24/1907/03 History mcg tablet cholecalciferol (vitamin D3) 25 25 mcg PO DAILY 12/22/21 07/03/24 History mcg (1,000 unit) capsule turmeric 400 mg capsule 400 mg PO DAILY 12/22/21 07/03/24 History clotrimazole-betametha sone 1 1 applic topical BID 2 weeks #45 0 06/25/23 07/03/24 Rx %-0.05 % topical cream grams budesonide 3 (more content not included)... Normal [facility] CTA Chest W/WO Contraston CTA Chest W/WO Contrast [facility] Imaging Services [address] [place], [place] [id number] CTA Chest W/WO Contrast MR#: [id number] Acct: [id number] Name: DIANE DESHPANDE Rep #: [id number] : 1990 F 33 From: Maurilio Nugent MD PCP: Dr. May Alicia DO Status: REG CLI Study: CTA Chest W/WO Contrast Date of Exam: 07/02/24 Exam# [id number] Ordering Dr: May Alicia DO PROCEDURE: CTA CHEST W/WO CONTRAST REASON FOR EXAM: Shortness of breath; test +COVID 06/28; cough; chest pain. TECHNIQUE: Chest CTA with intravenous contrast and 3D reconstructions. COMPARISON: None. FINDINGS: CHEST: Lines and tubes: None. Mediastinum: No evidence of mediastinal hemorrhage. Heart: Normal heart size. No pericardial effusion. Thoracic Aorta: No evidence of acute traumatic aortic injury. Lungs and Airways: Mild left dependent atelectasis. Pleura: No pleural effusion. No pneumothorax. Bones: No acute osseous abnormality identified. Small sliding hiatal hernia. CT/CTA Chest W/WO Contrast IMPRESSION: No acute chest abnormality. No pulmonary embolism. Mild left basilar dependent atelectasis. Small sliding hiatal hernia. One or more dose reduction techniques were used (e.g., Automated exposure control, adjustment of the mA and/or kV according to patient size, use of iterative reconstruction technique). Reading Location: [facility] CC: Dr. May Alicia DO Electric Mule Driver: Signed Normal [facility] Urgent Care Visit Reporton 0 06-30-2024 Urgent Care Visit Report [facility] [address], [address] [place] [address] OFFICE VISIT Date of Service: 06/30/24 MR#: [id number] Acct: [id number] Name: DIANE DESHPANDE Rep #: [id number] : 1990 Provider: CHINTAN Brower Age/Sex: 33/F Location: [facility] Status: Signed Intake Vital Signs 06/29/24 14:16 06/30/24 08:28 06/30/24 08:33 Height 5 ft 6.93 in BP 120/80 Position Sitting Pulse 95 Temp 98.2 F Temp Source Oral Pulse Oximetry (%) 95 98 Oxygen Delivery Method room air room air Intake Visit Reasons: 2ND VISIT/COVID POS/DIFF BREATH Accompanied by: Self Allergies No Known Allergies Allergy (Verified 06/30/24 08:27) Medications ???Medication ???Instructions ???Recorded ???Confirmed ???Type folic acid 0.8 mg capsule 0.8 mg PO DAILY 05/02/18 06/30/24 History selenium 200 mcg capsule 200 mcg PO DAILY 05/02/18 06/30/24 History cyanocobalamin (vitamin B-12) 500 1,000 mcg PO DAILY 08/24/19 06/30/24 History mcg tablet cholecalciferol (vitamin D3) 25 25 mcg PO DAILY 12/22/21 06/30/24 History mcg (1,000 unit) capsule turmeric 400 mg capsule 400 mg PO DAILY 12/22/21 06/30/24 History clotrimazole-betametha sone 1 1 applic topical BID 2 weeks #45 06/25/23 06/30/24 Rx %-0.05 % topical cream grams budesonide 3 mg 3 mg PO BID #60 ea 10/29/23 06/30/24 Rx capsule,delayed,extend ed release ustekinumab 90 mg/mL subcutaneous 90 mg subcut Q4W #1 mL 10/29/23 06/30/24 Rx syringe (Stelara) celecoxib 200 mg capsule (Celebrex) 200 mg PO QDAY #30 caps 06/19/24 06/30/24 Rx pantoprazole 40 mg tablet,delayed 40 mg PO DAILY acid reflux #90 tabs 06/19/24 06/30/24 Rx release benzonatate 200 mg capsule 200 mg PO TID PRN cough #20 caps 06/24/24 06/30/24 Rx Sprintec (28) 0.25 mg-35 mcg 1 tab PO DAILY #84 tabs 06/29/24 06/30/24 Rx tablet (norgestimate-ethinyl estradiol) dexamethasone 6 mg tablet 6 mg PO DAILY #5 tabs 06/30/24 06/30/24 Rx Nurse's Note: Patient is Covid Positive and she is having difficulty breathing. PENDING SALE TO [facility] Medical History Thoracic myofascial strain Left shoulder strain Injury of left shoulder Wears contact lenses Depression Anxiety Arthritis High cholesterol Migraine headache Injury of head and neck History of GI bleed History of Crohn's disease Gastric reflux Non-smoker Painful defecation Vertigo Malnutrition Vitamin B12 deficiency Mixed hyperlipidemia Radiculopathy, cervical region Low back pain Unspecified abdominal pain Headache Proteinuria Viral URI Electrocution, initial encounter Surgical History Hx of colonoscopy History of esophagogastroduodenos copy (EGD) H/O adenoidectomy History of tonsillectomy History of cholecystectomy Family History Grandmother Diabetes Asthma Grandfather Diabetes Heart disease Kidney disease Father Diabetes Mother Hypertension Uterine cancer Other Thyroid disorder Social History number of children: 0 current occupational status: employed 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 Tmax), congestion/runny nose, with new onset dyspnea on exertion appreciated over the last several days; dx'd w/ COVID-19 here on 06/24/2024. She states contacting her PCP (Dr. Li) to be evaluated, but was told she can cannot get in for at least another month. No complaints of chest pressure w/ shortness of breath - though dyspnea on exertion appreciated as previously stated. She notes completing dexamethasone as previously prescribed, though does still have some more benzonatate as previously prescribed which do help some. Non-smoker. No oydj-dio-srtklqk products taken to assist. No other associated symptoms and no other alleviating/aggravatin g factors. ROS Const Constitutional: No other (as above) Exam Const General: cooperative, healthy appearing and no acute distress Orientation: alert, awake and oriented x3 HENMT Head: normal to inspection Ears: hearing grossly normal bilaterally, external ears normal, TM's normal bilaterally and EAC's normal Nose: external nose normal, nares normal, septum normal and no discharge clear Face and sinus: normal facial exam, sinuses nontender and face symmetric Mouth: oral mucosae normal, lip normal, tongue normal and oropharynx normal Throat: posterior orophar (more content not included)... Normal [facility] Operation Supervisor Office Visit Reporton 06-29-2024 Operation Supervisor Office Visit Report [facility] [address], [address] [place] [address] OFFICE VISIT Date of Service: 06/29/24 MR#: [id number] Acct: [id number] Name: DIANE DESHPANDE Rep #: [id number] : 1990 Provider: LANDY jenkins Age/Sex: 33/F Location: [facility] Status: Signed Intake Vital Signs 06/25/23 14:27 06/29/24 14:08 06/29/24 14:16 Height 5 ft 6.93 in 5 ft 6 in 5 ft 6.93 in Weight: 304 lb 4 oz BMI 49.1 BP 132/84 H Intake Visit Reasons: Annual (ADVISER SALES) Chief Complaint: Annual Tumbler Tender Required: No Is patient in pain?: No Allergies No Known Allergies Allergy (Verified 06/29/24 14:08) Medications ???Medication ???Instructions ???Recorded ???Confirmed ???Type folic acid 0.8 mg capsule 0.8 mg PO DAILY 05/02/18 06/29/24 History selenium 200 mcg capsule 200 mcg PO DAILY 05/02/18 06/29/24 History cyanocobalamin (vitamin B-12) 500 1,000 mcg PO DAILY 08/24/19 06/29/24 History mcg tablet cholecalciferol (vitamin D3) 25 25 mcg PO DAILY 12/22/21 06/29/24 History mcg (1,000 unit) capsule turmeric 400 mg capsule 400 mg PO DAILY 12/22/21 06/29/24 History clotrimazole-betametha sone 1 1 applic topical BID 2 weeks #45 06/25/23 06/29/24 Rx %-0.05 % topical cream grams budesonide 3 mg 3 mg PO BID #60 ea 10/29/23 06/29/24 Rx capsule,delayed,extend ed release ustekinumab 90 mg/mL subcutaneous 90 mg subcut Q4W #1 mL 10/29/23 06/29/24 Rx syringe (Stelara) celecoxib 200 mg capsule (Celebrex) 200 mg PO QDAY #30 caps 06/19/24 06/29/24 Rx pantoprazole 40 mg tablet,delayed 40 mg PO DAILY acid reflux #90 tabs 06/19/24 06/29/24 Rx release benzonatate 200 mg capsule 200 mg PO TID PRN cough #20 caps 06/24/24 06/29/24 Rx dexamethasone 6 mg tablet 6 mg PO DAILY #5 tabs 06/24/24 06/29/24 Rx Sprintec (28) 0.25 mg-35 mcg 1 tab PO DAILY #84 tabs 06/29/24 06/29/24 Rx tablet (norgestimate-ethinyl estradiol) Is last menstrual period known: Yes Last Menstrual Period: 06/08/24 Post menopausal: No Patient : No : No Control Method: OCP PENDING SALE TO [facility] Medical History Thoracic myofascial strain Left shoulder strain Injury of left shoulder Wears contact lenses Depression Anxiety Arthritis High cholesterol Migraine headache Injury of head and neck History of GI bleed History of Crohn's disease Gastric reflux Non-smoker Painful defecation Vertigo Malnutrition Vitamin B12 deficiency Mixed hyperlipidemia Radiculopathy, cervical region Low back pain Unspecified abdominal pain Headache Proteinuria Viral URI Electrocution, initial encounter Surgical History Hx of colonoscopy History of esophagogastroduodenos copy (EGD) H/O adenoidectomy History of tonsillectomy History of cholecystectomy Family History Grandmother Diabetes Asthma Grandfather Diabetes Heart disease Kidney disease Father Diabetes Mother Hypertension Uterine cancer Other Thyroid disorder Social History number of children: 0 current occupational status: employed 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 Menses getting heavier, wearing triple protection and changing pad/tampon every 1-2 hours. Aware has fibroid. Menses last 5-10 days, occuring every 3 weeks. States menses more problematic since pharmacy changed sprintec to another brand. Not sexually active X 4 years. Mother age 66 diagnosed uterine cancer and had LAVH 06/08/24 and will have 5 weeks radiation. Last PAP: 2023 History of abnormal PAP: no Last mammogram: age 36 Other preventative health care screenings: [facility] Female Reproductive History Last Menstrual Period: 06/08/24 ROS Const Constitutional: Denies fatigue, weight gain or weight loss Cardio Card: Denies chest pain Resp Resp: Denies cough or dyspnea on exertion GI GI: Denies abdominal pain, bloating, change in stool character, constipation or vomiting : Reports as per HPI; Denies difficulty voiding, pelvic pain, urinary frequency, urinary incontinence, urinary urgency, vaginal discharge or vaginal pruritus Exam Const General: cooperativ (more content not included)... Normal [facility] Laboratory - Microbiology an d Antimicrobial susceptibilityon 06-24-2024 SARS-CoV-2 (COVID-19) RNA TEDDY+probe Ql (Unsp spec) Detected [facility] No Panel Informationon 06-24 POC Nasal Swab Influenza A,B Not detected [facility] POC Nasal Swab RSV Not detected [facility] Urgent Care Visit Reporton 0 06-24-2024 Ur[address] Care Visit Report [facility] [address], [address] [place] [address] OFFICE VISIT Date of Service: 06/24/24 MR#: [id number] Acct: [id number] Name: DIANE DESHPANDE Rep #: [id number] 2 : 1990 Provider: CHINTAN Brower Age/Sex: 33/F Location: [facility] Status: Signed Intake Vital Signs 06/25/23 14:27 06/24/24 14:28 Height 5 ft 6.93 in BP 126/82 H Blood Pressure Location Lt brachial Position Sitting Respiration 14 Pulse 112 H Pulse Source Auscultation Temp 98.6 F Temp Source Oral Pulse Oximetry (%) 97 Oxygen Delivery Method room air Intake Visit Reasons: flu like symptoms Chief Complaint: Annual Allergies No Known Allergies Allergy (Verified 06/25/23 14:29) PFS Medical History Anxiety Arthritis Depression Electrocution, initial encounter Gastric reflux Headache [...] H/O adenoidectomy History of cholecystectomy History of esophagogastroduodenos copy (EGD) History of tonsillectomy Hx of colonoscopy Family History (Updated 06/19/24 @ 14:32 by Nevin Matos) Grandmother Diabetes Asthma Grandfather Diabetes Heart disease Kidney disease Father Diabetes Mother Hypertension Uterine cancer Other Thyroid disorder Social History (Updated 06/25/23 @ 14:36 by Moni Briones) number of children: 0 current occupational status: employed 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 Patient nausea acute change in symptoms late last evening with approximately 18-hour history of fever (unknown Tmax), chills, myalgias, fatigue, and worsening nasal congestion along with nausea and loose stool. No melena/hematochezia. No complaints of chest pressure/shortness of breath/dyspnea on exertion. No pbqg-bkb-fjmdcvi products taken to assist. No other associated symptoms and no other alleviating/aggravatin g factors. ROS Const Constitutional: No other (as above) Exam Const General: cooperative, healthy appearing and no acute distress Nutritional Appearance: average body habitus Orientation: alert, awake and oriented x3 HENMT Head: normal to inspection Ears: hearing grossly normal bilaterally, external ears normal, TM's normal bilaterally and EAC's normal Nose: external nose normal, nares normal, septum normal and nasal discharge clear Face and sinus: normal facial exam, sinuses nontender and face symmetric Mouth: oral mucosae normal, lip normal, tongue normal and oropharynx normal Throat: posterior oropharynx normal, tonsils normal, uvula midline and no postnasal drainage Eyes General: appearance normal, both eyes and all related structures Neck Neck: normal visual inspection, full ROM, no lymphadenopathy, no meningeal signs and supple Neck mass: No Thyroid: thyroid normal Lymphatic: no lymphadenopathy noted Chest Chest palpation inspection: normal inspection of the chest Resp Effort Inspection: normal respiratory effort, able to speak in complete sentences and no unsolicited cough during today's exam Auscultation: Bilateral: Clear to Auscultation Cardio Palpation: normal PMI Rate: tachycardic Rhythm: regular rhythm Heart Sounds: S1 normal, S2 normal, no gallops, no murmurs and no rubs Pulses: radial pulses present GI Inspection: normal to inspection Palpation: soft and no hepatosplenomegaly Skin General: no rashes or lesions noted Neuro General: patient alert, patient awake and patient oriented x3 Cognition: normal cognition Speech: speech normal Psych Appearance: grossly normal Mental Status: mental status grossly normal Mood: congruent mood Affect: normal affect Speech and Movement: speech and movement normal Attitude: cooperative Diagnoses COVID-19 U07.1 Assessment and Plan Assessment and Plan (1) COVID-19: Status: Acute Plan: See POC results. Dexamethasone and Benzona (more content not included)... Normal [facility] Gastroenterology Visit Repor ton 06-19-2024 Gastroenterology Visit Report [facility] Gastroenter[facility] [address] [place] [address] OFFICE VISIT Date of Service: 06/19/24 MR#: [id number] Acct: [id number] Name: DIANE DESHPANDE Rep #: [id number] : 1990 Provider: Valentin Whitmore DO Age/Sex: 33/F [place] [facility] [place]: Signed Intake Vital Signs 06/25/23 14:27 Height 5 ft 6.93 in Intake Visit Reasons: 6 M FU Chief Complaint: Annual Allergies No Known Allergies Allergy (Verified 06/25/23 14:29) PENDING SALE TO [facility] Medical History Anxiety Arthritis Depression Electrocution, initial encounter Gastric reflux Headache [...] H/O adenoidectomy History of cholecystectomy History of esophagogastroduodenos copy (EGD) History of tonsillectomy Hx of colonoscopy Family History (Updated 06/19/24 @ 14:32 by Nevin Matos) Grandmother Diabetes Asthma Grandfather Diabetes Heart disease Kidney disease Father Diabetes Mother Hypertension Uterine cancer Other Thyroid disorder Social History (Updated 06/25/23 @ 14:36 by Moni Briones) number of children: 0 current occupational status: employed 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 [facility] established 12.22.21 to establish care for previously diagnosed Crohn???s disease. Symptoms started 2009 with BRBPR; initially treated with budesonide and azathioprine, ineffective. Underwent cholecystectomy 2014 and surgeon told her she did not have Crohn???s and therapy was stopped. Did well until 2018 when symptoms returned and established with GI in [place] who started Humira, increased dosing to weekly with symptom improvement but no remission. Stelara started with symptom improvement but continues to have difficulty with abd pain, nausea, loose stools, urgency related incontinence and intermittent presence of blood OV 9.2.22 continue Lomotil, colestipol and dicyclomine for symptom [...] 05.22.22 gastric ulceration, inflammatory changes noted starting [id number] with diffused chenges and worsening with progression [...] how symptoms improve with job change. OV 5.. for management of Crohn???s with IBS; Lomotil has been stopped. Colestipol decreased from 2gram to 1gram with goal of cessation of colestipol. BM occur daily with normal/formed stool. Has been increased diet choices. ? EGD and colonoscopy 12.13.22 EGD irregular Zline 40cm; gastritis; duodenitis. No metaplasia. ? Colonoscopy local inflammation, Rutgeerts Score i2, of distal/terminal ileum, acute/chronic enteritis. OV 8.06.25 she has been having loose stools with [...] Colestipol and Lomotil have since ended. ? HIDA 04.03.23 without duodenal gastric reflux. Contact 04.12.23 with (more content not included)... Normal [facility] M7400.3302on 05-25-2024 M7400.3302 __ TESTING PERFORMED AT [facility]. ORIGINAL REPORT ON FILE IN LAB CONTAINS ADDITIONAL TEST SITE INFORMATION. Giardia Lamblia EIA NEGATIVE [facility] Comment on above: Performed By: #### L 7000.0700, L7000.0750, M7400.3302, L7000.0300, M100.0605, M100.637, M100.7900, M600.5000 ####[facility] [address] [place], [address] Ova and Parasites 8623on OP OVA AND PARASITES EXAM, ROUTINE These results were obtained using wet preparation(s) and trichrome stained smear. This test does not include testing for Crytosporidium parvum, Cyclospora, or Microsporidia. One negative specimen does not rule out the possibility of a parasitic infection. TESTING PERFORMED AT [facility]. ORIGINAL REPORT ON FILE IN LAB CONTAINS ADDITIONAL TEST SITE INFORMATION. Ova/Parasite Exam NO OVA, CYSTS, OR PARASITES FOUND. Normal [facility] Comment on above: Performed By: #### L 7000.0700, L7000.0750, M7400.3302, L7000.0300, M100.0605, M100.637, M100.7900, M600.5000 ####[facility] [address] [place], [place], [id number] L7000.0750on 05-23-2024 P ELASTASE,FECA > 800 Normal >200 [facility] Comment on above: Result Comment: Resu lt Units: ug Elast./g Severe Pancreatic Insufficiency: <100 Moderate Pancreatic Insufficiency: 100 - 200 Normal: >200 Performed at: [address] [id number] Worship Leader: Shazia Wong MD, Phone: [phone] Performed By: #### L 7000.0700, L7000.0750, M7400.3302, L7000.0300, M100.0605, M100.637, M100.7900, M600.5000 ####[facility] [address] [place], [place], [id number] Calprotectin, Stoolon [address] 90 ug/g Normal 0-120 [facility] Comment on above: Order Comment: Test( s) 670771-Sjnk, Neutral; 477550-Erki, Totalwas developed and its performance characteristicsdetermined by [facility]. It has not been cleared or approvedby the Food and Drug Administration. Result Comment: Conc entration Interpretation Follow-Up < 5 - 50 ug/g Normal None >50 -120 ug/g Borderline Re-evaluate in 4-6 weeks >120 ug/g Abnormal Repeat as clinically indicated Performed at: [address] [id number] Worship Leader: Kofi Gonzalez PhD, Phone: [phone] Performed at: [address] [id number] Worship Leader: Shazia Wong MD, Phone: [phone] Performed By: #### L 7000.0700, L7000.0750, M7400.3302, L7000.0300, M100.0605, M100.637, M100.7900, M600.5000 ####[facility] [address] [place], [address] Fecal Fat, Qualitativeon FATS, NEUTRAL Normal Normal . [facility] Comment on above: Order Comment: Test( s) 652338-Blmd, Neutral; 437037-Lgst, Totalwas developed and its performance characteristicsdetermined by [employer]. It has not been cleared or approvedby the Food and Drug Administration. Result Comment: Norm al (<60 Droplets/HPF) Performed By: #### L 7000.0700, L7000.0750, M7400.3302, L7000.0300, M100.0605, M100.637, M100.7900, M600.5000 ####[facility] [address] [place], [place], [id number] FATS, TOTAL Normal Normal . [facility] Comment on above: Order Comment: Test( s) 672161-Qdra, Neutral; 903150-Mhuu, Totalwas developed and its performance characteristicsdetermined by [employer]. It has not been cleared or approvedby the Food and Drug Administration. Result Comment: Norm al (<100 Droplets/HPF) Performed By: #### L 7000.0700, L7000.0750, M7400.3302, L7000.0300, M100.0605, M100.637, M100.7900, M600.5000 ####[facility] [address] [place], [place], [phone] Calprotectin stoolOrdered By : Valentin Whitmore on 05-20-2024 Stool Calprotectin 90 ug/g 0-120 [facility] Comment on above: Concentration Interp retation Follow-Up< 5 - 50 ug/g Normal None>50 -120 ug/g Borderline Re-evaluate in 4-6 weeks >120 ug/g Abnormal Repeat as clinically indicatedPerformed at: [employer] [id number] Director: Kofi Gonzalez PhD, Phone: [phone] at: [employer] [address] [id number] Director: Shazia Wnog MD, Phone: [phone] ENTERIC PATHOGEN PANEL STOOL on 05-20-2024 EP PANEL CAMPYLOBACTER Not Detected Norovirus Not Detected Rotavirus Not Detected Salmonella Not Detected Shiga Toxin Not Detected Shigella sp. Not Detected VIBRIO Not Detected Yersinia Not Detected Normal [facility] Comment on above: Performed By: #### L 7000.0700, L7000.0750, M7400.3302, L7000.0300, M100.0605, M100.637, M100.7900, M600.5000 ####[facility] [address] [place], [place], [id number] Elastase.pancreatic (Stl) [M ass/Mass]Ordered By: Valentin Whitmore on 05-20-2024 Stool Pancreatic Elastase > [address] [facility] Comment on above: Result Units: ug Destinee st./g Severe Pancreatic Insufficiency: <100 Moderate Pancreatic Insufficiency: 100 - 200 Normal: >200Performed at: [employer] [address] [id number] Director: Shazia Wong MD, Phone: [phone] Fat Ql (Stl)Ordered By: Mervat Cherry on 05-20-2024 Stool Total Fats Normal . [facility] Comment on above: Normal (<100 Droplet s/HPF) Giardia lamblia antigen assa y by enzyme immunoassayOrdered By: Valentin Whitmore on 05-20-2024 Giardia Antigen (CARLITOS) [facility] Lactoferrin IA Ql (Stl)Order ed By: Valentin Whitmore on 05-20-[address] [facility] Lower GI hemoglobin IA Ql (S tl)Ordered By: Valentin Whitmore on 05-20-2024 Stool Occult Blood (CARLITOS) [facility] No Panel InformationOrdered By: Valentin Whitmore on 05-20-2024 Stool Neutral Fats Normal . [facility] Comment on above: Normal (<60 Droplets /HPF) Ova and parasitesOrdered By: Valentin Whitmore on 05-20-[address] [facility] Stool Lactoferrin/WBCon 05-03 WBCST Normal Reference Ran ge = Negative Fecal WBC Lactoferrin Negative: No Fecal WBC Lactoferrin present Normal [facility] Comment on above: Performed By: #### L 7000.0700, L7000.0750, M7400.3302, L7000.0300, M100.0605, M100.637, M100.7900, M600.5000 ####[facility] [address] [place], [place], [phone]) Stool Occult Blood iFOBon STOB Negative Normal [facility] Comment on above: Performed By: #### L 7000.0700, L7000.0750, M7400.3302, L7000.0300, M100.0605, M100.637, M100.7900, M600.5000 ####[facility] [address] [place], [address] Stool enteric pathogen panel by probe and target amplification methodOrdered By: Valentin Whitmore on 05-20-2024 Enteric Bacteriology [facility] Abdomen/Pelvis WITH Contrast on 04-24-2024 Abdomen/Pelvis WITH Contrast [facility] Imaging Services [address] [place] [address] Abdomen/Pelvis WITH Contrast MR#: [id number] Acct: [id number] Name: DIANE DESHPANDE Rep #: [id number] : 1990 F 33 From: Dre rm MD PCP: Dr. May Alicia, DO Status: REG CLI Study: Abdomen/Pelvis WITH Contrast Date of Exam: Exam# [id number] Ordering Dr: Valentin Whitmore DO [id number] STUDY: CT ABDOMEN AND PELVIS WITH CONTRAST REASON FOR EXAM: Female, 33 years old. crohns disease RADIATION DOSAGE (If Supplied By Facility): CTDIvol = ( 18.73 ) mGy, DLP = ( 1371.65 ) mGycm TECHNIQUE: Transaxial images were obtained from the dome of the diaphragm to the symphysis pubis with oral contrast. Oral and amp; IV Readi-CAT and amp; 100mL Isovue-370 was administered. Sagittal and coronal images were reconstructed. Individualized dose optimization techniques were used for this CT. COMPARISON: None. FINDINGS: The visualized lung bases are unremarkable. The visualized portions of the heart are within normal limits. Normal liver. There is non-visualization of the gallbladder, which may be secondary to either contraction or a prior cholecystectomy. Normal spleen. Normal pancreas. Normal bilateral adrenal glands. Normal right kidney. Normal left kidney. Contrast in the distal esophagus. This is consistent with reflux. There is a small hiatal hernia. Otherwise normal visualized stomach. Normal small intestine. Normal colon. The appendix is visualized and appears normal. Normal abdominal aorta. Normal inferior vena cava. Normal retroperitoneum. Normal urinary bladder. 6.7 cm probable fibroid of the uterus. Normal abdominal wall. Normal osseous structures. CT/Abdomen/Pelvis WITH Contrast IMPRESSION: 6.7 cm probable uterine fibroid. Hepatomegaly. No acute abnormalities. Electronically Signed: Dre Humphries MD at 22:18 EST , CC: Dr. May Alicia DO; Valentin Whitmore, Electric Mule Driver: Signed Normal [facility] Absolute neutrophil countOrd ered By: Valentin Whitmore on 04-20-2024 Neutrophils (Bld) [#/Vol] 9.7 10*3/uL High 2.0-7.7 [facility] Albumin to globulin ratioOrd ered By: Valentin Whitmore on 04-20-2024 Albumin/Globulin [Mass ratio] 0.8 {ratio} Low 0.9-2.4 [facility] Amylaseon 04-20-2024 CLARISSA 31 U/L Normal 25-115 [facility] Comment on above: Performed By: #### L 501.2400, L500.4050, L100.0100, L101.9900, L501.2450, L501.6710 ####[facility] [address] [place], [place], [id number] Basophil percentageOrdered B y: Valentin Whitmore on 04-20-2024 Basophils/100 WBC (Bld) 0.8 % 0-1 [facility] Bilirubin, totalOrdered By: Valentin Whitmore on 04-20-2024 Bilirubin [Mass/Vol] 0.40 mg/dL 0.20-1.00 [facility] Comment on above: For patients on eltr ombopag therapy, use of Dimension [place] TBIL is not recommended. Blood urea nitrogen (BUN)/cr eatinine ratioOrdered By: Valentin Whitmore on 04-20-2024 Urea nitrogen/Creatinine [Mass ratio] 13.2 mg/mg 10-20 [facility] C-reactive protein measureme nt by high sensitivity methodOrdered By: Valentin Whitmore on 04-20-2024 C-Reactive Protein Extended Range 14.20 mg/L High 0.0-3.0 [facility] Comment on above: C-Reactive Protein ( CRP) provides useful information for thediagnosis, therapy and monitoring of inflammatory processesand associated diseases. For the evaluation of Relative Riskfor Cardiovascular Disease, a High Sensitivity CRP (HSCRP)should be ordered. CBC W/Diff, Automatedon - Absolute Lymph 4.14 X10 3/uL Normal 0.83-4.51 [facility] Comment on above: Performed By: #### L 501.2400, L500.4050, L100.0100, L101.9900, L501.2450, L501.6710 #### [facility] [address] [place], [address] Absolute Neut 9.7 X10 3/uL High 2.0-7.7 [facility] Comment on above: Performed By: #### L 501.2400, L500.4050, L100.0100, L101.9900, L501.2450, L501.6710 #### [facility] [address] [place], [address] Basophils/100 WBC (Bld) 0.8 % Normal 0-1 [facility] Comment on above: Performed By: #### L 501.2400, L500.4050, L100.0100, L101.9900, L501.2450, L501.6710 #### [facility] [address] [place], [address] Eosinophils/100 WBC (Bld) 0.7 % Normal 0-5 [facility] Comment on above: Performed By: #### L 501.2400, L500.4050, L100.0100, L101.9900, L501.2450, L501.6710 #### [facility] [address] [place], [address] Erythrocyte distribution width (RBC) [Ratio] 12.6 % Normal 11.6-14.6 [facility] Comment on above: Performed By: #### L 501.2400, L500.4050, L100.0100, L101.9900, L501.2450, L501.6710 #### [facility] [address] [place], [address] Hematocrit (Bld) [Volume fraction] 39.8 % Normal 37-47 [facility] Comment on above: Performed By: #### L 501.2400, L500.4050, L100.0100, L101.9900, L501.2450, L501.6710 #### [facility] [address] [place], [address] Hemoglobin (Bld) [Mass/Vol] 13.0 g/dL Normal 12.0-15.0 [facility] Comment on above: Performed By: #### L 501.2400, L500.4050, L100.0100, L101.9900, L501.2450, L501.6710 #### [facility] [address] [place], [address] IG% 0.700 Normal 0.0-0.9 [facility] Comment on above: Result Comment: IG% - Immature Granulocytes (promyelocytes, myelocytes and metamyelocytes) > 1% indicates that a LEFT SHIFT is Present. Performed By: #### L 501.2400, L500.4050, L100.0100, L101.9900, L501.2450, L501.6710 #### [facility] [address] [place], [address] Lymphocytes/100 WBC (Bld) 27.5 % Normal 19-41 [facility] Comment on above: Performed By: #### L 501.2400, L500.4050, L100.0100, L101.9900, L501.2450, L501.6710 #### [facility] [address] [place], [address] MCH (RBC) [Entitic mass] 29.9 pg Normal 27.0-32.0 [facility] Comment on above: Performed By: #### L 501.2400, L500.4050, L100.0100, L101.9900, L501.2450, L501.6710 #### [facility] [address] [place], [address] MCHC (RBC) [Mass/Vol] 32.7 g/dL Normal 32-36 [facility] Comment on above: Performed By: #### L 501.2400, L500.4050, L100.0100, L101.9900, L501.2450, L501.6710 #### [facility] [address] [place], [address] MCV (RBC) [Entitic vol] 91.5 fL Normal 81-99 [facility] Comment on above: Performed By: #### L 501.2400, L500.4050, L100.0100, L101.9900, L501.2450, L501.6710 #### [facility] [address] [place], [address] Monocytes/100 WBC (Bld) 5.6 % Normal 0-10 [facility] Comment on above: Performed By: #### L 501.2400, L500.4050, L100.0100, L101.9900, L501.2450, L501.6710 #### [facility] [address] [place], [address] Neutrophils/100 WBC (Bld) 64.7 % Normal 47-70 [facility] Comment on above: Performed By: #### L 501.2400, L500.4050, L100.0100, L101.9900, L501.2450, L501.6710 #### [facility] [address] [place], [address] Nucleated RBC (Bld) [#/Vol] 0 10*3/uL Normal 0-5 [facility] Comment on above: Performed By: #### L 501.2400, L500.4050, L100.0100, L101.9900, L501.2450, L501.6710 #### [facility] [address] [place], [address] Platelet mean volume (Bld) [Entitic vol] 9.6 fL Normal 6.2-12.0 [facility] Comment on above: Performed By: #### L 501.2400, L500.4050, L100.0100, L101.9900, L501.2450, L501.6710 #### [facility] [address] [place], [address] Platelets (Bld) [#/Vol] 415 10*3/uL Normal 150-450 [facility] Comment on above: Performed By: #### L 501.2400, L500.4050, L100.0100, L101.9900, L501.2450, L501.6710 #### [facility] [address] [place], [address] RBC (Bld) [#/Vol] 4.35 10*6/uL Normal 4.2-5.4 [facility] Comment on above: Performed By: #### L 501.2400, L500.4050, L100.0100, L101.9900, L501.2450, L501.6710 #### [facility] [address] [place], [address] RDW SD 41.7 fl Normal 35.1-43.9 [facility] Comment on above: Performed By: #### L 501.2400, L500.4050, L100.0100, L101.9900, L501.2450, L501.6710 #### [facility] [address] [place], [address] WBC (Bld) [#/Vol] 15.1 10*3/uL High 4.4-11.0 [facility] Comment on above: Performed By: #### L 501.2400, L500.4050, L100.0100, L101.9900, L501.2450, L501.6710 #### [facility] [address] [place], [place], [id number] CRPon 04-20-2024 C-REACTIVE PROT 14.20 mg/L High 0.0-3.0 [facility] Comment on above: Result Comment: C-Re active Protein (CRP) provides useful information for the diagnosis, therapy and monitoring of inflammatory processes and associated diseases. For the evaluation of Relative Risk for Cardiovascular Disease, a High Sensitivity CRP (HSCRP) should be ordered. Performed By: #### L 501.2400, L500.4050, L100.0100, L101.9900, L501.2450, L501.6710 ####[facility] [address] [place], [place], [id number] Carbon dioxide measurementOr dered By: Valentin Whitmore on 04-20-2024 CO2 [Moles/Vol] 28.0 mmol/L 21.0-32.0 [facility] Chloride measurementOrdered By: Valentin Whitmore on 04-20-2024 Chloride [Moles/Vol] 104 mmol/L 98-107 [facility] Comprehensive Metabolic Prof ilon 04-20-2024 Albumin [Mass/Vol] 3.3 g/dL Normal 3.2-5.0 [facility] Comment on above: Performed By: #### L 501.2400, L500.4050, L100.0100, L101.9900, L501.2450, L501.6710 #### [facility] [address] [place], [place], [id number] Albumin/Globulin [Mass ratio] 0.8 {ratio} Low 0.9-2.4 [facility] Comment on above: Performed By: #### L 501.2400, L500.4050, L100.0100, L101.9900, L501.2450, L501.6710 #### [facility] [address] [place], [address] ALK P 93 U/L Normal 45-117 [facility] Comment on above: Performed By: #### L 501.2400, L500.4050, L100.0100, L101.9900, L501.2450, L501.6710 #### [facility] [address] [place], [address] ALT [Catalytic activity/Vol] 16 U/L Normal 13-56 [facility] Comment on above: Performed By: #### L 501.2400, L500.4050, L100.0100, L101.9900, L501.2450, L501.6710 #### [facility] [address] [place], [address] AST [Catalytic activity/Vol] 9 U/L Low 15-37 [facility] Comment on above: Performed By: #### L 501.2400, L500.4050, L100.0100, L101.9900, L501.2450, L501.6710 #### [facility] [address] [place], [address] Bilirubin [Mass/Vol] 0.40 mg/dL Normal 0.20-1.00 [facility] Comment on above: Result Comment: For patients on eltrombopag therapy, use of Dimension [place] TBIL is not recommended. Performed By: #### L 501.2400, L500.4050, L100.0100, L101.9900, L501.2450, L501.6710 #### [facility] [address] [place], [address] BUN/CRE 13.2 RATIO Normal 10-20 [facility] Comment on above: Performed By: #### L 501.2400, L500.4050, L100.0100, L101.9900, L501.2450, L501.6710 #### [facility] [address] [place], [address] CA,Total 9.0 mg/dL Normal 8.5-10.1 [facility] Comment on above: Performed By: #### L 501.2400, L500.4050, L100.0100, L101.9900, L501.2450, L501.6710 #### [facility] [address] [place], [address] Chloride [Moles/Vol] 104 mmol/L Normal 98-107 [facility] Comment on above: Performed By: #### L 501.2400, L500.4050, L100.0100, L101.9900, L501.2450, L501.6710 #### [facility] [address] [place], [address] CO2 [Moles/Vol] 28.0 mmol/L Normal 21.0-32.0 [facility] Comment on above: Performed By: #### L 501.2400, L500.4050, L100.0100, L101.9900, L501.2450, L501.6710 #### [facility] [address] [place], [address] Creatinine [Mass/Vol] 0.68 mg/dL Normal 0.55-1.02 [facility] Comment on above: Result Comment: The validity of the calculated GFR GFRAA in patients over 70 years has not been determined. Clinical correlation is essential. Performed By: #### L 501.2400, L500.4050, L100.0100, L101.9900, L501.2450, L501.6710 #### [facility] [address] [place], [address] EST GFR - AA 128 mL/min Normal >60 [facility] Comment on above: Result Comment: Afri can Kazakh GFR Calc Performed By: #### L 501.2400, L500.4050, L100.0100, L101.9900, L501.2450, L501.6710 #### [facility] [address] [place], [address] GAP 3 Low 5-15 [facility] Comment on above: Performed By: #### L 501.2400, L500.4050, L100.0100, L101.9900, L501.2450, L501.6710 #### [facility] [address] [place], [address] GFR/1.73 sq M.predicted among non-blacks MDRD (S/P/Bld) [Vol rate/Area] 106 mL/min/{1.73_m2} Normal >60 [facility] Comment on above: Result Comment: Non- GFR Calc Performed By: #### L 501.2400, L500.4050, L100.0100, L101.9900, L501.2450, L501.6710 #### [facility] [address] [place], [address] Globulin (S) [Mass/Vol] 4.3 g/dL High 2.2-4.2 [facility] Comment on above: Performed By: #### L 501.2400, L500.4050, L100.0100, L101.9900, L501.2450, L501.6710 #### [facility] [address] [place], [address] Glucose [Mass/Vol] 85 mg/dL Normal 74-106 [facility] Comment on above: Performed By: #### L 501.2400, L500.4050, L100.0100, L101.9900, L501.2450, L501.6710 #### [facility] [address] [place], [address] Potassium [Moles/Vol] 3.6 mmol/L Normal 3.5-5.1 [facility] Comment on above: Performed By: #### L 501.2400, L500.4050, L100.0100, L101.9900, L501.2450, L501.6710 #### [facility] [address] [place], [address] Sodium [Moles/Vol] 135 mmol/L Low 136-145 [facility] Comment on above: Performed By: #### L 501.2400, L500.4050, L100.0100, L101.9900, L501.2450, L501.6710 #### [facility] [address] [place], [address] T PROT 7.6 g/dL Normal 6.4-8.2 [facility] Comment on above: Performed By: #### L 501.2400, L500.4050, L100.0100, L101.9900, L501.2450, L501.6710 #### [facility] [address] [place], [address] Urea nitrogen [Mass/Vol] 9 mg/dL Normal 7-18 [facility] Comment on above: Performed By: #### L 501.2400, L500.4050, L100.0100, L101.9900, L501.2450, L501.6710 #### [facility] [address] [place], [address] Eosinophil percentageOrdered By: Valentin Friend on 04-20-2024 Eosinophils/100 WBC (Bld) 0.7 % 0-5 [facility] Erythrocyte Sed Rateon 04-20 SED RATE 14 mm/hr Normal 0-30 [facility] Comment on above: Performed By: #### L 501.2400, L500.4050, L100.0100, L101.9900, L501.2450, L501.6710 #### [facility] [place], [address] Erythrocyte distribution wid th ratioOrdered By: Valentin Whitmore on 04-20-2024 Erythrocyte distribution width (RBC) [Ratio] 12.6 % 11.6-14.6 [facility] Erythrocyte distribution wid th standard deviationOrdered By: Valentin Whitmore on 04-20-2024 Erythrocyte distribution width (RBC) [Entitic vol] 41.7 fL 35.1-43.9 [facility] Erythrocyte sedimentation ra teOrdered By: Valentin Whitmore on 04-20-2024 ESR (Bld) [Velocity] 14 mm/h 0-30 [facility] Estimated glomerular filtrat ion rate (GFR) AmericanOrdered By: Valentin Whitmore on 04-20-2024 Estimated GFR (MDRD) Amer 128 mL/min >60 [facility] Comment on above: GFR Calc Glomerular filtration rate ( GFR) estimationOrdered By: Valentin Whitmore on 04-20-2024 Estimated GFR (MDRD) Non-Af Amer 106 mL/min >60 [facility] Comment on above: Non- GFR Calc Glucose measurementOrdered B y: Valentin Whitmore on 04-20-2024 Glucose [Mass/Vol] 85 mg/dL 74-106 [facility] Hematocrit Auto (Bld) [Volum e fraction]Ordered By: Valentin Whitmore on 04-20-2024 Hematocrit (Bld) [Volume fraction] 39.8 % 37-47 [facility] Hemoglobin measurementOrdere d By: Valentin Whitmore on 04-20-2024 Hemoglobin (Bld) [Mass/Vol] 13.0 g/dL 12.0-15.0 [facility] Immature granulocytes/100 WB C Auto (Bld)Ordered By: Valentin Whitmore on 04-20-2024 Immature granulocytes/100 WBC (Bld) 0.700 % 0.0-0.9 [facility] Comment on above: IG% - Immature Granu locytes (promyelocytes, myelocytes and metamyelocytes) > 1% indicates that a LEFT SHIFT is Present. Laboratory - Chemistry and C hemistry - challengeOrdered By: Valentin Whitmore on 04-20-2024 AST [Catalytic activity/Vol] 9 U/L Low 15-37 [facility] Lipaseon 04-20-2024 Lipase [Catalytic activity/Vol] 24 U/L Normal 13-75 [facility] Comment on above: Result Comment: Wolf chua note: LIPASE revised reference range effective 22. New Lipase methodology. Expected to produce lower values than the previous assay method. NEW Reference Range: 13 - 75 U/L Performed By: #### L 501.2400, L500.4050, L100.0100, L101.9900, L501.2450, L501.6710 ####[facility] [address] [place], [address] Lipase measurementOrdered By : Valentin Whitmore on 04-20-2024 Lipase [Catalytic activity/Vol] 24 U/L 13-75 [facility] Comment on above: Please note:LIPASE r evised reference range effective 22. New Lipase methodology. Expected to produce lower values than the previous assay method. NEW Reference Range: 13 - 75 U/L Lymphocytes Auto (Unsp spec) [#/Vol]Ordered By: Valentin Whitmore on 04-20-2024 Lymphocytes (Bld) [#/Vol] 4.14 10*3/uL 0.83-4.51 [facility] Lymphocytes/100 WBC Auto (Un sp spec)Ordered By: Valentin Whitmore on 04-20-2024 Lymphocytes/100 WBC (Bld) 27.5 % 19-41 [facility] MCV (mean corpuscular volume ) determinationOrdered By: Valentin Whitmore on 04-20-2024 MCV (RBC) [Entitic vol] 91.5 fL 81-99 [facility] Mean corpuscular hemoglobin (MCH) determinationOrdered By: Valentin Whitmore on 04-20-2024 MCH (RBC) [Entitic mass] 29.9 pg 27.0-32.0 [facility] Mean corpuscular hemoglobin concentration (MCHC) determinationOrdered By: Valentin Whitmore on 04-20-2024 MCHC (RBC) [Mass/Vol] 32.7 g/dL 32-36 [facility] Mean platelet volume determi nationOrdered By: Valentin Whitmore on 04-20-2024 Platelet mean volume (Bld) [Entitic vol] 9.6 fL 6.2-12.0 [facility] Monocyte percentageOrdered B y: Valentin Whitmore on 04-20-2024 Monocytes/100 WBC (Bld) 5.6 % 0-10 [facility] Neutrophil percentageOrdered By: Valentin Whitmore on 04-20-2024 Neutrophils/100 WBC (Bld) 64.7 % 47-70 [facility] Nucleated red blood cell per centageOrdered By: Valentin Whitmore on 04-20-2024 Nucleated RBC/100 WBC (Bld) [Ratio] 0 % 0-5 [facility] Platelet countOrdered By: Ra hayden Whitmore on 04-20-2024 Platelets (Bld) [#/Vol] 415 10*3/uL 150-450 [facility] Potassium measurementOrdered By: Valentin Whitmore on 04-20-2024 Potassium [Moles/Vol] 3.6 mmol/L 3.5-5.1 [facility] RBC Auto (Bld) [#/Vol]Ordere d By: Valentin Whitmore on 04-20-2024 RBC (Bld) [#/Vol] 4.35 10*6/uL 4.2-5.4 [facility] Serum anion gap measurementO rdered By: Valentin Whitmore on 04-20-2024 Anion gap [Moles/Vol] 3 mmol/L Low 5-15 [facility] Serum globulin measurementOr dered By: Valentin Whitmore on 04-20-2024 Globulin (S) [Mass/Vol] 4.3 g/dL High 2.2-4.2 [facility] Serum or plasma alanine salvador otransferase (ALT) measurementOrdered By: Valentin Whitmore on 04-20-2024 ALT [Catalytic activity/Vol] 16 U/L 13-56 [facility] Serum or plasma albumin marly urement (mass/volume)Ordered By: Valentin Whitmore on 04-20-2024 Albumin [Mass/Vol] 3.3 g/dL 3.2-5.0 [facility] Serum or plasma alkaline sondra sphatase measurementOrdered By: Valentin Whitmore on 04-20-2024 ALP [Catalytic activity/Vol] 93 U/L 45-117 [facility] Serum or plasma amylase marly urement (enzymatic activity/volume)Ordered By: Valentin Whitmore on 04-20-2024 Amylase [Catalytic activity/Vol] 31 U/L 25-115 [facility] Serum or plasma calcium amrly urement (mass/volume)Ordered By: Valentin Whitmore on 04-20-2024 Calcium [Mass/Vol] 9.0 mg/dL 8.5-10.1 [facility] Serum or plasma creatinine m easurement (mass/volume)Ordered By: Valentin Whitmore on 04-20-2024 Creatinine [Mass/Vol] 0.68 mg/dL 0.55-1.02 [facility] Comment on above: The validity of the calculated GFR & GFRAA in patients over 70 years has not been determined. Clinical correlation is essential. Serum or plasma urea nitroge n measurement (mass/volume)Ordered By: Valentin Whitmore on 04-20-2024 Urea nitrogen [Mass/Vol] 9 mg/dL 7-18 [facility] Sodium levelOrdered By: Mervat Cherry on 04-20-2024 Sodium [Moles/Vol] 135 mmol/L Low 136-145 [facility] Total proteinOrdered By: Glenn Whitmore on 04-20-2024 Protein [Mass/Vol] 7.6 g/dL 6.4-8.2 [facility] White blood cell (WBC) count Ordered By: Valentin Whitmore on 04-20-2024 WBC (Bld) [#/Vol] 15.1 10*3/uL High 4.4-11.0 [facility] CBC, Employeeon 04-01-2024 Absolute Lymph 2.67 X10 3/uL Normal 0.83-4.51 [facility] Comment on above: Performed By: #### L 400.0100, L100.0200, L500.2900 ####[facility] [address] [place], [address] Absolute Neut 5.8 X10 3/uL Normal 2.0-7.7 [facility] Comment on above: Performed By: #### L 400.0100, L100.0200, L500.2900 ####[facility] [address] [place], [address] Basophils/100 WBC (Bld) 0.9 % Normal 0-1 [facility] Comment on above: Performed By: #### L 400.0100, L100.0200, L500.2900 ####[facility] [address] [place], [address] Eosinophils/100 WBC (Bld) 1.6 % Normal 0-5 [facility] Comment on above: Performed By: #### L 400.0100, L100.0200, L500.2900 ####[facility] [address] [place], [address] Erythrocyte distribution width (RBC) [Ratio] 12.6 % Normal 11.6-14.6 [facility] Comment on above: Performed By: #### L 400.0100, L100.0200, L500.2900 ####[facility] [address] [place], [address] Hematocrit (Bld) [Volume fraction] 40.3 % Normal 37-47 [facility] Comment on above: Performed By: #### L 400.0100, L100.0200, L500.2900 ####[facility] [address] [place], [address] Hemoglobin (Bld) [Mass/Vol] 13.3 g/dL Normal 12.0-15.0 [facility] Comment on above: Performed By: #### L 400.0100, L100.0200, L500.2900 ####[facility] [address] [place], [address] Lymphocytes/100 WBC (Bld) 28.8 % Normal 19-41 [facility] Comment on above: Performed By: #### L 400.0100, L100.0200, L500.2900 ####[facility] [address] [place], [address] MCH (RBC) [Entitic mass] 29.6 pg Normal 27.0-32.0 [facility] Comment on above: Performed By: #### L 400.0100, L100.0200, L500.2900 ####[facility] [address] [place], [address] MCHC (RBC) [Mass/Vol] 33.0 g/dL Normal 32-36 [facility] Comment on above: Performed By: #### L 400.0100, L100.0200, L500.2900 ####[facility] [address] [place], [address] MCV (RBC) [Entitic vol] 89.6 fL Normal 81-99 [facility] Comment on above: Performed By: #### L 400.0100, L100.0200, L500.2900 ####[facility] [address] [place], [address] Monocytes/100 WBC (Bld) 6.3 % Normal 0-10 [facility] Comment on above: Performed By: #### L 400.0100, L100.0200, L500.2900 ####[facility] [address] [place], [address] Neutrophils/100 WBC (Bld) 62.1 % Normal 47-70 [facility] Comment on above: Performed By: #### L 400.0100, L100.0200, L500.2900 ####[facility] [address] [place], [address] NRBC # 0.00 10 3/uL Normal 0-5 [facility] Comment on above: Performed By: #### L 400.0100, L100.0200, L500.2900 ####[facility] [address] [place], [address] Nucleated RBC (Bld) [#/Vol] 0 10*3/uL Normal 0-5 [facility] Comment on above: Performed By: #### L 400.0100, L100.0200, L500.2900 ####[facility] [address] [place], [address] Platelet mean volume (Bld) [Entitic vol] 10.3 fL Normal 6.2-12.0 [facility] Comment on above: Performed By: #### L 400.0100, L100.0200, L500.2900 ####[facility] [address] [place], [address] Platelets (Bld) [#/Vol] 343 10*3/uL Normal 150-450 [facility] Comment on above: Performed By: #### L 400.0100, L100.0200, L500.2900 ####[facility] [address] [place], [address] RBC (Bld) [#/Vol] 4.50 10*6/uL Normal 4.2-5.4 [facility] Comment on above: Performed By: #### L 400.0100, L100.0200, L500.2900 ####[facility] [address] [place], [address] RDW SD 41.0 fl Normal 35.1-43.9 [facility] Comment on above: Performed By: #### L 400.0100, L100.0200, L500.2900 ####[facility] [address] [place], [address] WBC (Bld) [#/Vol] 9.3 10*3/uL Normal 4.4-11.0 [facility] Comment on above: Performed By: #### L 400.0100, L100.0200, L500.2900 ####[facility] [address] [place], [address] Employee Profileon 4 Albumin [Mass/Vol] 3.1 g/dL Low 3.2-5.0 [facility] Comment on above: Performed By: #### L 400.0100, L100.0200, L500.2900 ####[facility] [address] [place], [address] Albumin/Globulin [Mass ratio] 0.7 {ratio} Low 0.9-2.4 [facility] Comment on above: Performed By: #### L 400.0100, L100.0200, L500.2900 ####[facility] [address] [place], [address] ALK P 89 U/L Normal 45-117 [facility] Comment on above: Performed By: #### L 400.0100, L100.0200, L500.2900 ####[facility] [address] [place], [address] ALT [Catalytic activity/Vol] 18 U/L Normal 13-56 [facility] Comment on above: Performed By: #### L 400.0100, L100.0200, L500.2900 ####[facility] [address] [place], [address] AST [Catalytic activity/Vol] 13 U/L Low 15-37 [facility] Comment on above: Performed By: #### L 400.0100, L100.0200, L500.2900 ####[facility] [address] [place], [address] Bilirubin [Mass/Vol] 0.60 mg/dL Normal 0.20-1.00 [facility] Comment on above: Result Comment: For patients on eltrombopag therapy, use of Dimension [place] TBIL is not recommended. Performed By: #### L 400.0100, L100.0200, L500.2900 ####[facility] [address] [place], [address] Bilirubin.direct [Mass/Vol] 0.12 mg/dL Normal 0.00-0.30 [facility] Comment on above: Performed By: #### L 400.0100, L100.0200, L500.2900 ####[facility] [address] [place], [address] BUN/CRE 13.1 RATIO Normal 10-20 [facility] Comment on above: Performed By: #### L 400.0100, L100.0200, L500.2900 ####[facility] [address] [place], [address] CA,Total 8.9 mg/dL Normal 8.5-10.1 [facility] Comment on above: Performed By: #### L 400.0100, L100.0200, L500.2900 ####[facility] [address] [place], [address] Chloride [Moles/Vol] 107 mmol/L Normal 98-107 [facility] Comment on above: Performed By: #### L 400.0100, L100.0200, L500.2900 ####[facility] [address] [place], [address] CHOL:HDL 3.[address] [facility] Comment on above: Performed By: #### L 400.0100, L100.0200, L500.2900 ####[facility] [address] [place], [address] Cholesterol [Mass/Vol] 188 mg/dL Normal 200 [facility] Comment on above: Result Comment: <200 mg/dL Desirable 200-240 mg/dL Borderline >240 mg/dL High Risk Performed By: #### L 400.0100, L100.0200, L500.2900 ####[facility] [address] [place], [address] Cholesterol in HDL [Mass/Vol] 53 mg/dL Normal [facility] Comment on above: Result Comment: The drugs N-Acetylcysteine and Metamizole may falsely depress this assay. Reference Range HDL <40 mg/dL Low HDL Cholesterol HDL >or= 60 mg/dL High HDL Cholesterol Performed By: #### L 400.0100, L100.0200, L500.2900 ####[facility] [address] [place], [address] Cholesterol in LDL [Mass/Vol] 113 mg/dL Normal 0-130 [facility] Comment on above: Performed By: #### L 400.0100, L100.0200, L500.2900 ####[facility] [address] [place], [address] Cholesterol in VLDL [Mass/Vol] 22 mg/dL Normal 5-40 [facility] Comment on above: Performed By: #### L 400.0100, L100.0200, L500.2900 ####[facility] [address] [place], [address] CO2 [Moles/Vol] 27.0 mmol/L Normal 21.0-32.0 [facility] Comment on above: Performed By: #### L 400.0100, L100.0200, L500.2900 ####[facility] [address] [place], [address] Creatinine [Mass/Vol] 0.54 mg/dL Low 0.55-1.02 [facility] Comment on above: Result Comment: The validity of the calculated GFR GFRAA in patients over 70 years has not been determined. Clinical correlation is essential. Performed By: #### L 400.0100, L100.0200, L500.2900 ####[facility] [address] [place], [address] EST GFR - AA 170 mL/min Normal >60 [facility] Comment on above: Result Comment: Afri can Kazakh GFR Calc Performed By: #### L 400.0100, L100.0200, L500.2900 ####[facility] [address] [place], [address] GAP 4 Low 5-15 [facility] Comment on above: Performed By: #### L 400.0100, L100.0200, L500.2900 ####[facility] [address] [place], [address] GFR/1.73 sq M.predicted among non-blacks MDRD (S/P/Bld) [Vol rate/Area] 140 mL/min/{1.73_m2} Normal >60 [facility] Comment on above: Result Comment: Non- GFR Calc Performed By: #### L 400.0100, L100.0200, L500.2900 ####[facility] [address] [place], [address] Globulin (S) [Mass/Vol] 4.2 g/dL Normal 2.2-4.2 [facility] Comment on above: Performed By: #### L 400.0100, L100.0200, L500.2900 ####[facility] [address] [place], [address] Glucose [Mass/Vol] 87 mg/dL Normal 74-106 [facility] Comment on above: Performed By: #### L 400.0100, L100.0200, L500.2900 ####[facility] [address] [place], [address] LDH 146 U/L Normal 84-246 [facility] Comment on above: Performed By: #### L 400.0100, L100.0200, L500.2900 ####[facility] [address] [place], [address] Phosphate [Mass/Vol] 2.5 mg/dL Normal 2.5-4.9 [facility] Comment on above: Performed By: #### L 400.0100, L100.0200, L500.2900 ####[facility] [address] [place], [address] Potassium [Moles/Vol] 4.2 mmol/L Normal 3.5-5.1 [facility] Comment on above: Performed By: #### L 400.0100, L100.0200, L500.2900 ####[facility] [address] [place], [address] Sodium [Moles/Vol] 138 mmol/L Normal 136-145 [facility] Comment on above: Performed By: #### L 400.0100, L100.0200, L500.2900 ####[facility] [address] [place], [address] T PROT 7.3 g/dL Normal 6.4-8.2 [facility] Comment on above: Performed By: #### L 400.0100, L100.0200, L500.2900 ####[facility] [address] [place], [address] Triglyceride [Mass/Vol] 112 mg/dL Normal [facility] Comment on above: Result Comment: The drugs N-Acetylcysteine and Metamizole may falsely depress this assay. Serum Triglycerides Reference Interval Normal <150 mg/dL Borderline high 150 - 199 mg/dL High 200 - 499 mg/dL Very High > or = 500 mg/dL Performed By: #### L 400.0100, L100.0200, L500.2900 ####[facility] [address] [place], [address] Urea nitrogen [Mass/Vol] 7 mg/dL Normal 7-18 [facility] Comment on above: Performed By: #### L 400.0100, L100.0200, L500.2900 ####[facility] [address] [place], [address] URIC 5.1 mg/dL Normal 2.6-6.0 [facility] Comment on above: Result Comment: The drugs N-Acetylcysteine and Metamizole may falsely depress this assay. Performed By: #### L 400.0100, L100.0200, L500.2900 ####[facility] [address] [place], [address] Urinalysis, Employeeon 04-01 BILIRUBIN URINE Negative Normal Negative [facility] Comment on above: Order Comment: CLEAN CATCH Performed By: #### L 400.0100, L100.0200, L500.2900 ####[facility] [address], [address] Clarity (U) Sl. Cloudy Normal Clear [facility] Comment on above: Order Comment: CLEAN CATCH Performed By: #### L 400.0100, L100.0200, L500.2900 ####[facility] [address] [place], [address] Color (U) Yellow Normal Yellow [facility] Comment on above: Order Comment: CLEAN CATCH Performed By: #### L 400.0100, L100.0200, L500.2900 ####[facility] [address] [place], [address] GLUCOSE, UR Normal Normal Normal [facility] Comment on above: Order Comment: CLEAN CATCH Performed By: #### L 400.0100, L100.0200, L500.2900 ####[facility] [address], [address] KETONE UR Negative Normal Negative [facility] Comment on above: Order Comment: CLEAN CATCH Performed By: #### L 400.0100, L100.0200, L500.2900 ####[facility] [address] [place], [address] LEUK ESTERASE 500 /ul Abnormal Negative [facility] Comment on above: Order Comment: CLEAN CATCH Performed By: #### L 400.0100, L100.0200, L500.2900 ####[facility] [address] [place], [address] Nitrite Ql (U) Negative Normal Negative [facility] Comment on above: Order Comment: CLEAN CATCH Performed By: #### L 400.0100, L100.0200, L500.2900 ####[facility] [address] [place], [address] OCCULT BLOOD-UR 10 /ul Abnormal Negative [facility] Comment on above: Order Comment: CLEAN CATCH Performed By: #### L 400.0100, L100.0200, L500.2900 ####[facility] [address] [place], [address] pH UR 7.0 Normal 5.0 - 8.0 [facility] Comment on above: Order Comment: CLEAN CATCH Performed By: #### L 400.0100, L100.0200, L500.2900 ####[facility] [address] [place], [address] PROT DIPSTX Negative Normal Negative [facility] Comment on above: Order Comment: CLEAN CATCH Performed By: #### L 400.0100, L100.0200, L500.2900 ####[facility] [address] [place], [address] SP.GR. DIPSTX 1.010 Normal 1.002-1.030 [facility] Comment on above: Order Comment: CLEAN CATCH Performed By: #### L 400.0100, L100.0200, L500.2900 ####[facility] [address] [place], [address] UROBILI Normal Normal Normal [facility] Comment on above: Order Comment: CLEAN CATCH Performed By: #### L 400.0100, L100.0200, L500.2900 ####[facility] [address] [place], [address] Quantiferon TB-Gold+on 02-26 QFT TB GOLD+ Normal [facility] Comment on above: Result Comment: TEST RESULTS LIMITS QFT-TB Plus (Client Incubated) QuantiFERON Criteria QuantiFERON-TB Gold Plus is a qualitative indirect test for M tuberculosis infection (including disease) and is intended for use in conjunction with risk assessment, radiography, and other medical and diagnostic evaluations. The QuantiFERON-TB Gold Plus result is determined by subtracting the Nil value from either TB antigen (Ag) value. The Mitogen tube serves as a control for the test. QuantiFERON TB1 Ag Value 0.03 IU/mL QuantiFERON TB2 Ag Value 0.04 IU/mL QuantiFERON Nil Value 0.03 IU/mL QuantiFERON Mitogen Value >10.00 IU/mL QuantiFERON-TB Gold Plus Negative Negative No response to M tuberculosis antigens detected. Infection with M tuberculosis is unlikely, but high risk individuals should be considered for additional testing (ATS/IDSA/CDC Clinical Practice Guidelines, 2017). The reference range is an Antigen minus Nil result of <0.35 IU/mL. The specimen received for QuantiFERON testing was incubated by the ordering institution. Specific procedures outlined in our Directory of Services and in the package insert for the QuantiFERON Gold (In Tube) test must be followed to enable for proper stimulation of cells for the production of interferon gamma. Chemiluminescence immunoassay methodology [facility] ORIGINAL REPORT ON FILE IN LAB CONTAINS ADDITIONAL TEST SITE INFORMATION. Performed By: #### L 3890.6100, L501.6710, L3890.6200, L3100.5475, L3890.6300, L505.7010, L3400.8000, L100.0100, L4600.0100, L500.4050, L101.9900 ####[facility] [address] [place], [place], [phone] CCP IgG Antibodieson 024 CCP IgG Ab. 7 units Normal 0-19 [facility] Comment on above: Result Comment: Nega tive <20 Weak positive 20 - 39 Moderate positive 40 - 59 Strong positive >59 Performed at: [address] [id number] Worship Leader: Kofi Gonzalez PhD, Phone: [phone] Performed By: #### L 3890.6100, L501.6710, L3890.6200, L3100.5475, L3890.6300, L505.7010, L3400.8000, L100.0100, L4600.0100, L500.4050, L101.9900 ####[facility] [address] [place], [address] ANTINUCLEAR ANTIBODIES DIRE Ton 02-11-2024 MAXINE,DIRECT Negative Normal Negative [facility] Comment on above: Result Comment: Perf ormed at: [address] [id number] Worship Leader: Kofi Gonzalez PhD, Phone: [phone] Performed By: #### L 3890.6100, L501.6710, L3890.6200, L3100.5475, L3890.6300, L505.7010, L3400.8000, L100.0100, L4600.0100, L500.4050, L101.9900 ####[facility] [address] [place] [place], [address] CBC W/Diff, Automatedon 09-0 9-4 Absolute Lymph 2.25 X10 3/uL Normal 0.83-4.51 [facility] Comment on above: Performed By: #### L 3890.6100, L501.6710, L3890.6200, L3100.5475, L3890.6300, L505.7010, L3400.8000, L100.0100, L4600.0100, L500.4050, L101.9900 ####[facility] [address] [place], [address] Absolute Neut 5.4 X10 3/uL Normal 2.0-7.7 [facility] Comment on above: Performed By: #### L 3890.6100, L501.6710, L3890.6200, L3100.5475, L3890.6300, L505.7010, L3400.8000, L100.0100, L4600.0100, L500.4050, L101.9900 ####[facility] [address] [place], [place], [phone] Basophils/100 WBC (Bld) 0.8 % Normal 0-1 [facility] Comment on above: Performed By: #### L 3890.6100, L501.6710, L3890.6200, L3100.5475, L3890.6300, L505.7010, L3400.8000, L100.0100, L4600.0100, L500.4050, L101.9900 ####[facility] [address] [place], [place], [phone] Eosinophils/100 WBC (Bld) 4.2 % Normal 0-5 [facility] Comment on above: Performed By: #### L 3890.6100, L501.6710, L3890.6200, L3100.5475, L3890.6300, L505.7010, L3400.8000, L100.0100, L4600.0100, L500.4050, L101.9900 ####[facility] [address] [place], [address] Erythrocyte distribution width (RBC) [Ratio] 12.2 % Normal 11.6-14.6 [facility] Comment on above: Performed By: #### L 3890.6100, L501.6710, L3890.6200, L3100.5475, L3890.6300, L505.7010, L3400.8000, L100.0100, L4600.0100, L500.4050, L101.9900 ####[facility] [address] [place], [phone]) Hematocrit (Bld) [Volume fraction] 39.6 % Normal 37-47 [facility] Comment on above: Performed By: #### L 3890.6100, L501.6710, L3890.6200, L3100.5475, L3890.6300, L505.7010, L3400.8000, L100.0100, L4600.0100, L500.4050, L101.9900 ####[facility] [address] [place], [address]([phone]) Hemoglobin (Bld) [Mass/Vol] 12.6 g/dL Normal 12.0-15.0 [facility] Comment on above: Performed By: #### L 3890.6100, L501.6710, L3890.6200, L3100.5475, L3890.6300, L505.7010, L3400.8000, L100.0100, L4600.0100, L500.4050, L101.9900 ####[facility] [address] [place], [phone]) IG% 0.600 Normal 0.0-0.9 [facility] Comment on above: Result Comment: IG% - Immature Granulocytes (promyelocytes, myelocytes and metamyelocytes) > 1% indicates that a LEFT SHIFT is Present. Performed By: #### L 3890.6100, L501.6710, L3890.6200, L3100.5475, L3890.6300, L505.7010, L3400.8000, L100.0100, L4600.0100, L500.4050, L101.9900 ####[facility] [address] [place], [place], [phone]) Lymphocytes/100 WBC (Bld) 26.2 % Normal 19-41 [facility] Comment on above: Performed By: #### L 3890.6100, L501.6710, L3890.6200, L3100.5475, L3890.6300, L505.7010, L3400.8000, L100.0100, L4600.0100, L500.4050, L101.9900 ####[facility] [address] [place], [place], [phone] MCH (RBC) [Entitic mass] 28.7 pg Normal 27.0-32.0 [facility] Comment on above: Performed By: #### L 3890.6100, L501.6710, L3890.6200, L3100.5475, L3890.6300, L505.7010, L3400.8000, L100.0100, L4600.0100, L500.4050, L101.9900 ####[facility] [address] [place], [place], [phone]) MCHC (RBC) [Mass/Vol] 31.8 g/dL Low 32-36 [facility] Comment on above: Performed By: #### L 3890.6100, L501.6710, L3890.6200, L3100.5475, L3890.6300, L505.7010, L3400.8000, L100.0100, L4600.0100, L500.4050, L101.9900 ####[facility] [address] [place], [place], [phone] MCV (RBC) [Entitic vol] 90.2 fL Normal 81-99 [facility] Comment on above: Performed By: #### L 3890.6100, L501.6710, L3890.6200, L3100.5475, L3890.6300, L505.7010, L3400.8000, L100.0100, L4600.0100, L500.4050, L101.9900 ####[facility] [address] [place], [address] Monocytes/100 WBC (Bld) 5.4 % Normal 0-10 [facility] Comment on above: Performed By: #### L 3890.6100, L501.6710, L3890.6200, L3100.5475, L3890.6300, L505.7010, L3400.8000, L100.0100, L4600.0100, L500.4050, L101.9900 ####[facility] [address] [place], [address] Neutrophils/100 WBC (Bld) 62.8 % Normal 47-70 [facility] Comment on above: Performed By: #### L 3890.6100, L501.6710, L3890.6200, L3100.5475, L3890.6300, L505.7010, L3400.8000, L100.0100, L4600.0100, L500.4050, L101.9900 ####[facility] [address] [place], [address] Nucleated RBC (Bld) [#/Vol] 0 10*3/uL Normal 0-5 [facility] Comment on above: Performed By: #### L 3890.6100, L501.6710, L3890.6200, L3100.5475, L3890.6300, L505.7010, L3400.8000, L100.0100, L4600.0100, L500.4050, L101.9900 ####[facility] [address] [place], [address] Platelet mean volume (Bld) [Entitic vol] 10.7 fL Normal 6.2-12.0 [facility] Comment on above: Performed By: #### L 3890.6100, L501.6710, L3890.6200, L3100.5475, L3890.6300, L505.7010, L3400.8000, L100.0100, L4600.0100, L500.4050, L101.9900 ####[facility] [address] [place], [address]( Platelets (Bld) [#/Vol] 368 10*3/uL Normal 150-450 [facility] Comment on above: Performed By: #### L 3890.6100, L501.6710, L3890.6200, L3100.5475, L3890.6300, L505.7010, L3400.8000, L100.0100, L4600.0100, L500.4050, L101.9900 ####[facility] [address] [place], [phone]) RBC (Bld) [#/Vol] 4.39 10*6/uL Normal 4.2-5.4 [facility] Comment on above: Performed By: #### L 3890.6100, L501.6710, L3890.6200, L3100.5475, L3890.6300, L505.7010, L3400.8000, L100.0100, L4600.0100, L500.4050, L101.9900 ####[facility] [address] [place], [address] RDW SD 39.8 fl Normal 35.1-43.9 [facility] Comment on above: Performed By: #### L 3890.6100, L501.6710, L3890.6200, L3100.5475, L3890.6300, L505.7010, L3400.8000, L100.0100, L4600.0100, L500.4050, L101.9900 ####[facility] [address] [place], [place], [phone] WBC (Bld) [#/Vol] 8.6 10*3/uL Normal 4.4-11.0 [facility] Comment on above: Performed By: #### L 3890.6100, L501.6710, L3890.6200, L3100.5475, L3890.6300, L505.7010, L3400.8000, L100.0100, L4600.0100, L500.4050, L101.9900 ####[facility] [address] [place], [place], [phone] CRPon 02-10-2024 C-REACTIVE PROT 29.30 mg/L High 0.0-3.0 [facility] Comment on above: Result Comment: C-Re active Protein (CRP) provides useful information for the diagnosis, therapy and monitoring of inflammatory processes and associated diseases. For the evaluation of Relative Risk for Cardiovascular Disease, a High Sensitivity CRP (HSCRP) should be ordered. Performed By: #### L 3890.6100, L501.6710, L3890.6200, L3100.5475, L3890.6300, L505.7010, L3400.8000, L100.0100, L4600.0100, L500.4050, L101.9900 ####[facility] [address] [place], [place], [phone] Comprehensive Metabolic Prof ilon 02-10-2024 Albumin [Mass/Vol] 3.2 g/dL Normal 3.2-5.0 [facility] Comment on above: Performed By: #### L 3890.6100, L501.6710, L3890.6200, L3100.5475, L3890.6300, L505.7010, L3400.8000, L100.0100, L4600.0100, L500.4050, L101.9900 ####[facility] [address] [place], [place], [phone] Albumin/Globulin [Mass ratio] 0.7 {ratio} Low 0.9-2.4 [facility] Comment on above: Performed By: #### L 3890.6100, L501.6710, L3890.6200, L3100.5475, L3890.6300, L505.7010, L3400.8000, L100.0100, L4600.0100, L500.4050, L101.9900 ####[facility] [address] [place], [place], [phone] ALK P 83 U/L Normal 45-117 [facility] Comment on above: Performed By: #### L 3890.6100, L501.6710, L3890.6200, L3100.5475, L3890.6300, L505.7010, L3400.8000, L100.0100, L4600.0100, L500.4050, L101.9900 ####[facility] [address] [place], [place], [phone] ALT [Catalytic activity/Vol] 15 U/L Normal 13-56 [facility] Comment on above: Performed By: #### L 3890.6100, L501.6710, L3890.6200, L3100.5475, L3890.6300, L505.7010, L3400.8000, L100.0100, L4600.0100, L500.4050, L101.9900 ####[facility] [address] [place], [place], [phone] AST [Catalytic activity/Vol] 10 U/L Low 15-37 [facility] Comment on above: Performed By: #### L 3890.6100, L501.6710, L3890.6200, L3100.5475, L3890.6300, L505.7010, L3400.8000, L100.0100, L4600.0100, L500.4050, L101.9900 ####[facility] [address] [place], [place], [phone] Bilirubin [Mass/Vol] 0.30 mg/dL Normal 0.20-1.00 [facility] Comment on above: Result Comment: For patients on eltrombopag therapy, use of Dimension [place] TBIL is not recommended. Performed By: #### L 3890.6100, L501.6710, L3890.6200, L3100.5475, L3890.6300, L505.7010, L3400.8000, L100.0100, L4600.0100, L500.4050, L101.9900 ####[facility] [address] [place], [address] BUN/CRE 12.0 RATIO Normal 10-20 [facility] Comment on above: Performed By: #### L 3890.6100, L501.6710, L3890.6200, L3100.5475, L3890.6300, L505.7010, L3400.8000, L100.0100, L4600.0100, L500.4050, L101.9900 ####[facility] [address] [place], [address] CA,Total 9.0 mg/dL Normal 8.5-10.1 [facility] Comment on above: Performed By: #### L 3890.6100, L501.6710, L3890.6200, L3100.5475, L3890.6300, L505.7010, L3400.8000, L100.0100, L4600.0100, L500.4050, L101.9900 ####[facility] [address] [place], [phone]) Chloride [Moles/Vol] 104 mmol/L Normal 98-107 [facility] Comment on above: Performed By: #### L 3890.6100, L501.6710, L3890.6200, L3100.5475, L3890.6300, L505.7010, L3400.8000, L100.0100, L4600.0100, L500.4050, L101.9900 ####[facility] [address] [place], [place], [phone]) CO2 [Moles/Vol] 26.0 mmol/L Normal 21.0-32.0 [facility] Comment on above: Performed By: #### L 3890.6100, L501.6710, L3890.6200, L3100.5475, L3890.6300, L505.7010, L3400.8000, L100.0100, L4600.0100, L500.4050, L101.9900 ####[facility] [address] [place], [address](734) Creatinine [Mass/Vol] 0.58 mg/dL Normal 0.55-1.02 [facility] Comment on above: Result Comment: The validity of the calculated GFR GFRAA in patients over 70 years has not been determined. Clinical correlation is essential. Performed By: #### L 3890.6100, L501.6710, L3890.6200, L3100.5475, L3890.6300, L505.7010, L3400.8000, L100.0100, L4600.0100, L500.4050, L101.9900 ####[facility] [address] [place], [place], [phone]([phone] EST GFR - AA 153 mL/min Normal >60 [facility] Comment on above: Result Comment: Afri can [place] GFR Calc Performed By: #### L 3890.6100, L501.6710, L3890.6200, L3100.5475, L3890.6300, L505.7010, L3400.8000, L100.0100, L4600.0100, L500.4050, L101.9900 ####[facility] [address] [place], [address] GAP 8 Normal 5-15 [facility] Comment on above: Performed By: #### L 3890.6100, L501.6710, L3890.6200, L3100.5475, L3890.6300, L505.7010, L3400.8000, L100.0100, L4600.0100, L500.4050, L101.9900 ####[facility] [address] [place], [address] GFR/1.73 sq M.predicted among non-blacks MDRD (S/P/Bld) [Vol rate/Area] 127 mL/min/{1.73_m2} Normal >60 [facility] Comment on above: Result Comment: Non- GFR Calc Performed By: #### L 3890.6100, L501.6710, L3890.6200, L3100.5475, L3890.6300, L505.7010, L3400.8000, L100.0100, L4600.0100, L500.4050, L101.9900 ####[facility] [address] [place], [address] Globulin (S) [Mass/Vol] 4.5 g/dL High 2.2-4.2 [facility] Comment on above: Performed By: #### L 3890.6100, L501.6710, L3890.6200, L3100.5475, L3890.6300, L505.7010, L3400.8000, L100.0100, L4600.0100, L500.4050, L101.9900 ####[facility] [address] [place], [address] Glucose [Mass/Vol] 97 mg/dL Normal 74-106 [facility] Comment on above: Performed By: #### L 3890.6100, L501.6710, L3890.6200, L3100.5475, L3890.6300, L505.7010, L3400.8000, L100.0100, L4600.0100, L500.4050, L101.9900 ####[facility] [address] [place], [address](696) Potassium [Moles/Vol] 4.0 mmol/L Normal 3.5-5.1 [facility] Comment on above: Performed By: #### L 3890.6100, L501.6710, L3890.6200, L3100.5475, L3890.6300, L505.7010, L3400.8000, L100.0100, L4600.0100, L500.4050, L101.9900 ####[facility] [address] [place], [address](927) Sodium [Moles/Vol] 138 mmol/L Normal 136-145 [facility] Comment on above: Performed By: #### L 3890.6100, L501.6710, L3890.6200, L3100.5475, L3890.6300, L505.7010, L3400.8000, L100.0100, L4600.0100, L500.4050, L101.9900 ####[facility] [address] [place], [address] T PROT 7.7 g/dL Normal 6.4-8.2 [facility] Comment on above: Performed By: #### L 3890.6100, L501.6710, L3890.6200, L3100.5475, L3890.6300, L505.7010, L3400.8000, L100.0100, L4600.0100, L500.4050, L101.9900 ####[facility] [address] [place], [address](141) Urea nitrogen [Mass/Vol] 7 mg/dL Normal 7-18 [facility] Comment on above: Performed By: #### L 3890.6100, L501.6710, L3890.6200, L3100.5475, L3890.6300, L505.7010, L3400.8000, L100.0100, L4600.0100, L500.4050, L101.9900 ####[facility] [address] [place], [address] Erythrocyte Sed Rateon 02-09 SED RATE 15 mm/hr Normal 0-30 [facility] Comment on above: Performed By: #### L 3890.6100, L501.6710, L3890.6200, L3100.5475, L3890.6300, L505.7010, L3400.8000, L100.0100, L4600.0100, L500.4050, L101.9900 ####[facility] [address] [place], [address] Hepatitis B Surface Antibody on 02-10-2024 HEP B Surf Ab Reactive Normal [facility] Comment on above: Result Comment: Non Reactive: Inconsistent with immunity less than <10 mIU/mL Reactive: Consistent with immunity greater than or equal to 10 mIU/mL Performed By: #### L 3890.6100, L501.6710, L3890.6200, L3100.5475, L3890.6300, L505.7010, L3400.8000, L100.0100, L4600.0100, L500.4050, L101.9900 ####[facility] [address] [place], [address] Hepatitis B Surface Antigeno n 02-10-2024 HEP B Surf Ag Non-Reactive Normal Nonreactive [facility] Comment on above: Performed By: #### L 3890.6100, L501.6710, L3890.6200, L3100.5475, L3890.6300, L505.7010, L3400.8000, L100.0100, L4600.0100, L500.4050, L101.9900 ####[facility] [address] [place], [address] Hepatitis C Antibodyon 02-09 Hepatitis C AB Non-Reactive Normal Nonreactive [facility] Comment on above: Result Comment: Non Reactive: < 0.8 Equivocal: >/= 0.8 to < 1.0 Reactive: >/= 1.0 The [facility] requires that a reactive/equivocal HCV antibody result be sent out for confirmation. HCV Quant by PCR testing. Performed By: #### L 3890.6100, L501.6710, L3890.6200, L3100.5475, L3890.6300, L505.7010, L3400.8000, L100.0100, L4600.0100, L500.4050, L101.9900 ####[facility] [address] [place], [address] Rheumatoid Factoron 02-10-20 24 RHEUMATOID FAC < 10.0 Normal <15 [facility] Comment on above: Performed By: #### L 3890.6100, L501.6710, L3890.6200, L3100.5475, L3890.6300, L505.7010, L3400.8000, L100.0100, L4600.0100, L500.4050, L101.9900 ####[facility] [address] [place], [place], [phone] Absolute lymphocyte countOrd ered By: Valentin Whitmore on 09-24-2023 Lymphocytes Auto (Unsp spec) [#/Vol] 4.20 10*3/uL 0.83-4.51 [facility] Automated lymphocyte count a s percentage of total leukocytesOrdered By: Valentin Myranda on 09-24-2023 Lymphocytes/100 WBC Auto (Unsp spec) 29.5 % 19-41 [facility] Basophil percentageOrdered B y: Valentin Friend on 09-24-2023 Basophils/100 WBC (Bld) 0.6 % 0-1 [facility] Eosinophils/100 WBC (Bld) 1.4 % 0-5 [facility] Hemoglobin (Bld) [Mass/Vol] 13.1 g/dL 12.0-15.0 [facility] Monocytes/100 WBC (Bld) 6.2 % 0-10 [facility] Neutrophils (Bld) [#/Vol] 8.8 10*3/uL 2.0-7.7 [facility] Neutrophils/100 WBC (Bld) 61.9 % 47-70 [facility] WBC (Bld) [#/Vol] 14.2 10*3/uL 4.4-11.0 [facility] Determination of erythrocyte mean corpuscular volume (MCV)Ordered By: Valentin Whitmore on 09-24-2023 MCV (RBC) [Entitic vol] 87.5 fL 81-99 [facility] Erythrocyte distribution wid th ratioOrdered By: Valentinhermann Whitmore on 09-24-2023 Erythrocyte distribution width (RBC) [Ratio] 12.0 % 11.6-14.6 [facility] Erythrocyte distribution wid th standard deviationOrdered By: Valentin Whitmore on 09-24-2023 Erythrocyte distribution width (RBC) [Entitic vol] 37.9 fL 35.1-43.9 [facility] Erythrocyte sedimentation ra teOrdered By: Valentin Whitmore on 09-24-2023 ESR (Bld) [Velocity] 34 mm/h 0-30 [facility] Hematocrit Auto (Bld) [Volum e fraction]Ordered By: Valentin Whitmore on 09-24-2023 Hematocrit (Bld) [Volume fraction] 40.0 % 37-47 [facility] Immature granulocytes/100 WB C Auto (Bld)Ordered By: Valentin Whitmore on 09-24-2023 Immature granulocytes/100 WBC (Bld) 0.400 % 0.0-0.9 [facility] Comment on above: IG% - Immature Granu locytes (promyelocytes, myelocytes and metamyelocytes) > 1% indicates that a LEFT SHIFT is Present. Laboratory - Hematology and Cell countsOrdered By: Valentin Whitmore on 09-24-2023 MCH (RBC) [Entitic mass] 28.7 pg 27.0-32.0 [facility] MCHC (RBC) [Mass/Vol] 32.8 g/dL 32-36 [facility] Nucleated RBC/100 WBC (Bld) [Ratio] 0 % 0-5 [facility] Platelet mean volume (Bld) [Entitic vol] 10.7 fL 6.2-12.0 [facility] Platelets (Bld) [#/Vol] 395 10*3/uL 150-450 [facility] No Panel InformationOrdered By: Valentin Whitmore on 09-24-2023 C-Reactive Protein Extended Range 19.70 mg/L 0.0-3.0 [facility] Comment on above: C-Reactive Protein ( CRP) provides useful information for thediagnosis, therapy and monitoring of inflammatory processesand associated diseases. For the evaluation of Relative Riskfor Cardiovascular Disease, a High Sensitivity CRP (HSCRP)should be ordered. RBC Auto (Bld) [#/Vol]Ordere d By: Valentin Whitmore on 09-24-2023 RBC (Bld) [#/Vol] 4.57 10*6/uL 4.2-5.4 [facility] Cervical or vaginal specimen microscopic examination by liquid based cytology (reported as document)Ordered By: Jennifer Mcdaniel on 06-25-2023 Cytology report Cyto stain.thin prep Doc (Cvx/Vag) Comment . [facility] Comment on above: Criteria not met, HP V Genotype not performed.Performed at: - [facility] [id number] Director: Pat Gibson MD, Phone: [phone] at: = - [facility] [address] [id number] Director: Pat Gibson MD, Phone: [phone] Cervical or vagninal specime n microscopic examination by cytology stain (reported asOrdered By: Jennifer Mcdaniel on 06-25-2023 Cytology report Cyto stain Doc (Cvx/Vag) Comment . [facility] Comment on above: The Pap smear is a s creening test designed to aid in thedetection of premalignant and malignant conditions of theuterine cervix. It is not a diagnostic procedure andshould not be used as the sole means of detecting cervicalcancer. Both false-positive and false-negative reports dooccur. Detection in cervical specim en of any of human papilloma virus (HPV) 16, 18, 31, 33,Ordered By: Jennifer Mcdaniel on 06-25-2023 HPV 16+18+31+33+35+39+45+5 1+52+56+58+59+66+68 DNA Probe+sig amp Ql (Cvx) Negative Negative [facility] Comment on above: This nucleic acid am plification test detects fourteen high- risk HPV types (16,18,31,33,35,39,45,51,52,56,58,59,66,68)without differentiation. Laboratory - CytologyOrdered By: Jennifer Mcdaniel on 06-25-2023 [employer] Engineer Cyto stain Nom (Cvx/Vag) [ID] Comment . [facility] Comment on above: Constantine De Jesus, [facility] otechnologist (ASCP) Laboratory - Miscellaneous t estsOrdered By: Jennifer Mcdaniel on 06-25-2023 Service comment (Unsp spec) [Interp] . . [facility] Thin prep Papanicolaou smear with manual screeningOrdered By: Jennifer Mcdaniel on 06-25-2023 Thin prep Papanicolaou smear with manual screening Comment . [facility] Comment on above: NEGATIVE FOR INTRAEP ITHELIAL LESION OR MALIGNANCY. This liquid based Th inPrep(R) pap test was screened withthe use of an image guided system. Clostridioides difficile nuc leic acid assay by PCROrdered By: Valentin Whitmore on 06-16-2023 C. difficile DNA TEDDY+probe Ql (Unsp spec) [facility] - Microbiology an d Antimicrobial susceptibilityOrdered By: Valentin Whitmore on 06-16-2023 G. lamblia Ag IA.rapid Ql (Stl) [facility] No Panel InformationOrdered By: Valentin Whitmore on 06-16-2023 Stool Calprotectin 181 ug/g 0-120 [facility] Comment on above: Concentration Interp retation Follow-Up< 5 - 50 ug/g Normal None>50 -120 ug/g Borderline Re-evaluate in 4-6 weeks >120 ug/g Abnormal Repeat as clinically indicatedPerformed at: [employer] [facility] [id number] Director: Kofi Gonzalez PhD, Phone: [phone] at: [facility] [id number] Director: Shazia Wong MD, Phone: [phone] Stool Neutral Fats Normal . [facility] Comment on above: Normal (<60 Droplets /HPF) Ova and parasitesOrdered By: Valentin Whitmore on 06-16-2023 Ova and parasites identified LM Nom (Unsp spec) [facility] Qualitative fecal fat or lip idsOrdered By: Valentin Whitmore on 06-16-2023 Fat Ql (Stl) Normal . [facility] Comment on above: Normal (<100 Droplet s/HPF) Stool enteric pathogen panel by probe and target amplification methodOrdered By: Valentin Whitmore on 06-16-2023 Gastrointestinal pathogens panel TEDDY+probe (Stl) [facility] Stool lactoferrin detection by immunoassayOrdered By: Valentin Whitmore on 06-16-2023 Lactoferrin IA Ql (Stl) [facility] Stool pancreatic elastase me asurement (mass/mass)Ordered By: Valentin Whitmore on 06-16-2023 Elastase.pancreatic (Stl) [Mass/Mass] [address] >200 [facility] Comment on above: Result Units: ug [place] st./g Severe Pancreatic Insufficiency: <100 Moderate Pancreatic Insufficiency: 100 - 200 Normal: >200Performed at: - [facility] [id number] Director: Shazia Wong MD, Phone: [phone] Absolute lymphocyte countOrd ered By: HEALTH ASSESSMENT on 02-15-2023 Lymphocytes Auto (Unsp spec) [#/Vol] 3.02 10*3/uL 0.83-4.51 [facility] Absolute reticulocyte countO rdered By: HEALTH ASSESSMENT on 02-15-2023 Reticulocytes (Bld) [#/Vol] 0.00 10*3/uL 0-5 [facility] Basophil percentageOrdered B y: HEALTH ASSESSMENT on 02-15-2023 Basophil percentage 3.0 mg/dL 2.5-4.9 [facility] Bilirubin [Mass/Vol] 0.20 mg/dL 0.20-1.00 [facility] Comment on above: For patients on eltr ombopag therapy, use of Dimension [place] TBIL is not recommended. Chloride [Moles/Vol] 106 mmol/L 98-107 [facility] Cholesterol [Mass/Vol] 158 mg/dL <200 [facility] Comment on above: <200 mg/dL Desirable 200-240 mg/dL Borderline >240 mg/dL High Risk Glucose [Mass/Vol] 96 mg/dL 74-106 [facility] LDH [Catalytic activity/Vol] 192 U/L 84-246 [facility] Neutrophils (Bld) [#/Vol] 5.5 10*3/uL 2.0-7.7 [facility] Potassium [Moles/Vol] 4.0 mmol/L 3.5-5.1 [facility] Protein [Mass/Vol] 7.2 g/dL 6.4-8.2 [facility] Sodium [Moles/Vol] 137 mmol/L 136-145 [facility] Triglyceride [Mass/Vol] 202 mg/dL <199 [facility] Comment on above: The drugs N-Acetylcy steine and Metamizole may falsely depress this assay.Serum Triglycerides Reference Interval Normal <150 mg/dL Borderline high 150 - 199 mg/dL High 200 - 499 mg/dL Very High > or = 500 mg/dL WBC (Bld) [#/Vol] 9.5 10*3/uL 4.4-11.0 [facility] Bilirubin Test strip Ql (U)O rdered By: HEALTH ASSESSMENT on 02-15-2023 Bilirubin Ql (U) Negative Negative [facility] Blood erythrocytes count (nu mber/volume)Ordered By: HEALTH ASSESSMENT on 02-15-2023 RBC (Bld) [#/Vol] 4.21 10*6/uL 4.2-5.4 [facility] Blood hemoglobin measurement (mass/volume)Ordered By: HEALTH ASSESSMENT on 02-15-2023 Hemoglobin (Bld) [Mass/Vol] 12.4 g/dL 12.0-15.0 [facility] Blood platelet mean volumeOr dered By: HEALTH ASSESSMENT on 02-15-2023 Platelet mean volume (Bld) [Entitic vol] 9.9 fL 6.2-12.0 [facility] Determination of erythrocyte mean corpuscular volume (MCV)Ordered By: HEALTH ASSESSMENT on 02-15-2023 MCV (RBC) [Entitic vol] 92.9 fL 81-99 [facility] Direct bilirubinOrdered By: HEALTH ASSESSMENT on 02-15-2023 Bilirubin.direct [Mass/Vol] 0.07 mg/dL 0.00-0.30 [facility] Hematocrit Auto (Bld) [Volum e fraction]Ordered By: HEALTH ASSESSMENT on 02-15-2023 Hematocrit (Bld) [Volume fraction] 39.1 % 37-47 [facility] Ketones Test strip Ql (U)Ord ered By: HEALTH ASSESSMENT on 02-15-2023 Ketones Ql (U) Negative Negative [facility] - Chemistry and C hemistry - challengeOrdered By: HEALTH ASSESSMENT on 02-15-2023 ALP [Catalytic activity/Vol] 98 U/L 45-117 [facility] ALT [Catalytic activity/Vol] 17 U/L 13-56 [facility] Cholesterol.total/Chol esterol in HDL [Mass ratio] 4.00 {ratio} [facility] CO2 [Moles/Vol] 29.0 mmol/L 21.0-32.0 [facility] Globulin (S) [Mass/Vol] 4.2 g/dL 2.2-4.2 [facility] Urea nitrogen/Creatinine [Mass ratio] 11.3 mg/mg 10-20 [facility] - Hematology and Cell countsOrdered By: HEALTH ASSESSMENT on 02-15-2023 Erythrocyte distribution width (RBC) [Entitic vol] 41.5 fL 35.1-43.9 [facility] Erythrocyte distribution width (RBC) [Ratio] 12.1 % 11.6-14.6 [facility] MCH (RBC) [Entitic mass] 29.5 pg 27.0-32.0 [facility] Nucleated RBC/100 WBC (Bld) [Ratio] 0 % 0-5 [facility] MCHC Auto (RBC) [Mass/Vol]Or dered By: HEALTH ASSESSMENT on 02-15-2023 MCHC (RBC) [Mass/Vol] 31.7 g/dL 32-36 [facility] Nitrite Test strip Ql (U)Ord ered By: HEALTH ASSESSMENT on 02-15-2023 Nitrite Ql (U) Negative Negative [facility] No Panel InformationOrdered By: HEALTH ASSESSMENT on 02-15-2023 Estimated GFR (MDRD) Amer 145 mL/min >60 [facility] Comment on above: GFR Calc Estimated GFR (MDRD) Non-Af Amer 120 mL/min >60 [facility] Comment on above: Non- GFR Calc Platelets bldOrdered By: ZACKARY [facility] ASSESSMENT on 02-15-2023 Platelets (Bld) [#/Vol] 323 10*3/uL 150-450 [facility] Protein Test strip Ql (U)Ord ered By: HEALTH ASSESSMENT on 02-15-2023 Protein Ql (U) Negative Negative [facility] Segmented neutrophils/100 WB C Auto (Bld)Ordered By: HEALTH ASSESSMENT on 02-15-2023 Segmented neutrophils/100 WBC (Bld) 57.5 % 47-70 [facility] Serum or plasma albumin marly urement (mass/volume)Ordered By: HEALTH ASSESSMENT on 02-15-2023 Albumin [Mass/Vol] 3.0 g/dL 3.2-5.0 [facility] Serum or plasma albumin/glob ulin mass ratioOrdered By: HEALTH ASSESSMENT on 02-15-2023 Albumin/Globulin [Mass ratio] 0.7 {ratio} 0.9-2.4 [facility] Serum or plasma calcium marly urement (mass/volume)Ordered By: HEALTH ASSESSMENT on 02-15-2023 Calcium [Mass/Vol] 8.8 mg/dL 8.5-10.1 [facility] Serum or plasma cholesterol in HDL measurement (mass/volume)Ordered By: HEALTH ASSESSMENT on 02-15-2023 Cholesterol in HDL [Mass/Vol] 40 mg/dL >40 [facility] Comment on above: The drugs N-Acetylcy steine and Metamizole may falsely depress this assay. Reference Range HDL <40 mg/dL Low HDL Cholesterol HDL >or= 60 mg/dL High HDL Cholesterol Serum or plasma cholesterol in VLDL measurement (mass/volume)Ordered By: HEALTH ASSESSMENT on 02-15-2023 Cholesterol in VLDL [Mass/Vol] 40 mg/dL 5-40 [facility] Serum or plasma creatinine m easurement (mass/volume)Ordered By: HEALTH ASSESSMENT on 02-15-2023 Creatinine [Mass/Vol] 0.62 mg/dL 0.55-1.02 [facility] Comment on above: The validity of the calculated GFR & GFRAA in patients over 70 years has not been determined. Clinical correlation is essential. Serum or plasma low density lipoprotein (LDL) cholesterol measurement (mass/volume)Ordered By: HEALTH ASSESSMENT on 02-15-2023 Cholesterol in LDL [Mass/Vol] 78 mg/dL 0-130 [facility] Serum or plasma urea nitroge n measurement (mass/volume)Ordered By: HEALTH ASSESSMENT on 02-15-2023 Urea nitrogen [Mass/Vol] 7 mg/dL 7-18 [facility] Serum or plasma uric acid me asurement (mass/volume)Ordered By: HEALTH ASSESSMENT on 02-15-2023 Urate [Mass/Vol] 5.8 mg/dL 2.6-6.0 [facility] Comment on above: The drugs N-Acetylcy steine and Metamizole may falsely depress this assay. Thin prep Papanicolaou smear with manual screeningOrdered By: HEALTH ASSESSMENT on 02-15-2023 Thin prep Papanicolaou smear with manual screening 16 U/L 15-37 [facility] Thin prep Papanicolaou smear with manual screening 2 5-15 [facility] Urine blood detectionOrdered By: HEALTH ASSESSMENT on 02-15-2023 RBC Ql (U) 10 /ul Negative [facility] Urine clarityOrdered By: [facility] ASSESSMENT on 02-15-2023 Clarity (U) Clear Clear [facility] Urine color determinationOrd ered By: HEALTH ASSESSMENT on 02-15-2023 Color (U) Straw Yellow [facility] Urine glucose detectionOrder ed By: HEALTH ASSESSMENT on 02-15-2023 Glucose Ql (U) Normal mg/dl Normal [facility] Urine leukocyte esterase det ection by dipstickOrdered By: HEALTH ASSESSMENT on 02-15-2023 Leukocyte esterase Test strip Ql (U) 25 /ul Negative [facility] Urine pHOrdered By: HEALTH A SSESSMENT on 02-15-2023 pH (U) 6.5 [pH] 5.0 - 8.0 [facility] Urine specific gravity measu rementOrdered By: HEALTH ASSESSMENT on 02-15-2023 Specific gravity (U) [Rel density] 1.010 1.002-1.030 [facility] Urobilinogen Auto test strip Ql (U)Ordered By: HEALTH ASSESSMENT on 02-15-2023 Urobilinogen Ql (U) Normal mg/dl Normal [facility] Erythrocyte sedimentation ra teOrdered By: Valentin Whitmore on 01-02-2023 ESR (Bld) [Velocity] 18 mm/h 0-30 [facility] No Panel InformationOrdered By: Valentin Whitmore on 01-02-2023 Immunoglobulin E 85 IU/mL 6-495 [facility] Miscellaneous Test See comment [facility] Comment on above: Scanned image report available in EMR Serum or plasma C reactive p rotein measurement (mass/volume)Ordered By: Valentin Whitmore on 01-02-2023 CRP [Mass/Vol] 20.80 mg/L 0.0-3.0 [facility] Comment on above: C-Reactive Protein ( CRP) provides useful information for thediagnosis, therapy and monitoring of inflammatory processesand associated diseases. For the evaluation of Relative Riskfor Cardiovascular Disease, a High Sensitivity CRP (HSCRP)should be ordered. Serum or plasma IgA measurem ent (mass/volume)Ordered By: Valentin Whitmore on 01-02-2023 IgA [Mass/Vol] 232 mg/dL 87-352 [facility] Serum or plasma IgG measurem ent (mass/volume)Ordered By: Valentin Whitmore on 01-02-2023 IgG [Mass/Vol] 1361 mg/dL 586-1602 [facility] Serum or plasma IgM measurem ent (mass/volume)Ordered By: Valentin Whitmore on 01-02-2023 IgM [Mass/Vol] 68 mg/dL 26-217 [facility] Comment on above: Performed at: - [address] [id number] Director: Shazia Wong MD, Phone: [phone] at: - [facility] [id number] Director: Kofi Gonzalez PhD, Phone: [phone] Laboratory - Chemistry and C hemistry - challengeOrdered By: Valentin Whitmore on 12-13-2022 HCG ( test) Ql (U) Negative [facility] Comment on above: Very dilute urine sp ecimens, as indicated by a low specificgravity, may not contain national sales representative levels of hCG. If is still suspected, a first morning urinespecimen should be collected 48 hours later and tested. Absolute lymphocyte countOrd ered By: Theresa Hooks on 11-07-2022 Lymphocytes Auto (Unsp spec) [#/Vol] 4.16 10*3/uL 0.83-4.51 [facility] Basophil percentageOrdered B y: Theresa Hooks on 11-07-2022 Basophils/100 WBC (Bld) 0.6 % 0-1 [facility] Bilirubin [Mass/Vol] 0.40 mg/dL 0.20-1.00 [facility] Comment on above: For patients on eltr ombopag therapy, use of Dimension [place] TBIL is not recommended. Chloride [Moles/Vol] 104 mmol/L 98-107 [facility] Eosinophils/100 WBC (Bld) 1.5 % 0-5 [facility] Glucose [Mass/Vol] 82 mg/dL 74-106 [facility] Neutrophils (Bld) [#/Vol] 8.6 10*3/uL 2.0-7.7 [facility] Neutrophils/100 WBC (Bld) 61.6 % 47-70 [facility] Potassium [Moles/Vol] 4.2 mmol/L 3.5-5.1 [facility] Protein [Mass/Vol] 7.9 g/dL 6.4-8.2 [facility] Sodium [Moles/Vol] 137 mmol/L 136-145 [facility] WBC (Bld) [#/Vol] 14.0 10*3/uL 4.4-11.0 [facility] Blood erythrocytes count (nu mber/volume)Ordered By: Theresa Hooks on 11-07-2022 RBC (Bld) [#/Vol] 4.59 10*6/uL 4.2-5.4 [facility] Blood hemoglobin measurement (mass/volume)Ordered By: Theresa Hooks on 11-07-2022 Hemoglobin (Bld) [Mass/Vol] 13.2 g/dL 12.0-15.0 [facility] Blood lymphocytes/100 leukoc ytesOrdered By: Theresa Hooks on 11-07-2022 Lymphocytes/100 WBC (Bld) 29.7 % 19-41 [facility] Blood monocytes/100 leukocyt esOrdered By: Theresa Hooks on 11-07-2022 Monocytes/100 WBC (Bld) 6.1 % 0-10 [facility] Blood platelet mean volumeOr dered By: Theresa Hooks on 11-07-2022 Platelet mean volume (Bld) [Entitic vol] 10.0 fL 6.2-12.0 [facility] Determination of erythrocyte mean corpuscular volume (MCV)Ordered By: Theresa Hooks on 11-07-2022 MCV (RBC) [Entitic vol] 87.6 fL 81-99 [facility] Erythrocyte sedimentation ra teOrdered By: Theresa Hooks on 11-07-2022 ESR (Bld) [Velocity] 23 mm/h 0-30 [facility] Hematocrit Auto (Bld) [Volum e fraction]Ordered By: Tehresa Hooks on 11-07-2022 Hematocrit (Bld) [Volume fraction] 40.2 % 37-47 [facility] Laboratory - Chemistry and C hemistry - challengeOrdered By: Theresa Hooks on 11-07-2022 ALP [Catalytic activity/Vol] 92 U/L 45-117 [facility] ALT [Catalytic activity/Vol] 21 U/L 13-56 [facility] CO2 [Moles/Vol] 28.0 mmol/L 21.0-32.0 [facility] Globulin (S) [Mass/Vol] 4.6 g/dL 2.2-4.2 [facility] Urea nitrogen/Creatinine [Mass ratio] 17.4 mg/mg 10-20 [facility] - Hematology and Cell countsOrdered By: Theresa Hooks on 11-07-2022 Erythrocyte distribution width (RBC) [Entitic vol] 38.3 fL 35.1-43.9 [facility] Erythrocyte distribution width (RBC) [Ratio] 12.0 % 11.6-14.6 [facility] Immature granulocytes/100 WBC (Bld) 0.500 % 0.0-0.9 [facility] Comment on above: IG% - Immature Granu locytes (promyelocytes, myelocytes and metamyelocytes) > 1% indicates that a LEFT SHIFT is Present. MCH (RBC) [Entitic mass] 28.8 pg 27.0-32.0 [facility] Nucleated RBC/100 WBC (Bld) [Ratio] 0 % 0-5 [facility] MCHC Auto (RBC) [Mass/Vol]Or dered By: Theresa Hooks on 11-07-2022 MCHC (RBC) [Mass/Vol] 32.8 g/dL 32-36 [facility] No Panel InformationOrdered By: Theresa Hooks on 11-07-2022 Estimated GFR (MDRD) Amer 158 mL/min >60 [facility] Comment on above: GFR Calc Estimated GFR (MDRD) Non-Af Amer 130 mL/min >60 [facility] Comment on above: Non- GFR Calc Platelets bldOrdered By: Zuleika Hooks on 11-07-2022 Platelets (Bld) [#/Vol] 366 10*3/uL 150-450 [facility] Qualitative QuantiFERON-TB g old in tube testOrdered By: Theresa Hooks on 11-07-2022 M. tuberculosis tuberculin stim IFN-g Ql (Bld) 0.02 IU/mL . [facility] Serum or plasma C reactive p rotein measurement (mass/volume)Ordered By: Theresa Hooks on 11-07-2022 CRP [Mass/Vol] 15.40 mg/L 0.0-3.0 [facility] Comment on above: C-Reactive Protein ( CRP) provides useful information for thediagnosis, therapy and monitoring of inflammatory processesand associated diseases. For the evaluation of Relative Riskfor Cardiovascular Disease, a High Sensitivity CRP (HSCRP)should be ordered. Serum or plasma albumin marly urement (mass/volume)Ordered By: Theresa Hooks on 11-07-2022 Albumin [Mass/Vol] 3.3 g/dL 3.2-5.0 [facility] Serum or plasma albumin/glob ulin mass ratioOrdered By: Theresa Hooks on 11-07-2022 Albumin/Globulin [Mass ratio] 0.7 {ratio} 0.9-2.4 [facility] Serum or plasma calcium marly urement (mass/volume)Ordered By: Theresa Hooks on 11-07-2022 Calcium [Mass/Vol] 9.7 mg/dL 8.5-10.1 [facility] Serum or plasma creatinine m easurement (mass/volume)Ordered By: Theresa Hooks on 11-07-2022 Creatinine [Mass/Vol] 0.57 mg/dL 0.55-1.02 [facility] Comment on above: The validity of the calculated GFR & GFRAA in patients over 70 years has not been determined. Clinical correlation is essential. Serum or plasma urea nitroge n measurement (mass/volume)Ordered By: Theresa Hooks on 11-07-2022 Urea nitrogen [Mass/Vol] 10 mg/dL 7-18 [facility] Thin prep Papanicolaou smear with manual screeningOrdered By: Theresa Hooks on 11-07-2022 Thin prep Papanicolaou smear with manual screening 15 U/L 15-37 [facility] Thin prep Papanicolaou smear with manual screening 5 5-15 [facility] Thin prep Papanicolaou smear with manual screening Comment . [facility] Comment on above: QuantiFERON-TB Gold Plus is a qualitative indirect test forM tuberculosis infection (including disease) and isintended for use in conjunction with risk assessment,radiography, and other medical and diagnostic evaluations.The QuantiFERON-TB Gold Plus result is determined bysubtracting the Nil value from either TB antigen (Ag)value. The Mitogen tube serves as a control for the test. Thin prep Papanicolaou smear with manual screening 0.05 IU/mL . [facility] Thin prep Papanicolaou smear with manual screening 0.06 IU/mL . [facility] Thin prep Papanicolaou smear with manual screening > 10.00 IU/mL . [facility] Thin prep Papanicolaou smear with manual screening Negative Negative [facility] Comment on above: No response to M tub erculosis antigens detected.Infection with M tuberculosis is unlikely, but high riskindividuals should be considered for additional testing(ATS/IDSA/CDC Clinical Practice Guidelines, 2017). Thereference range is an Antigen minus Nil result of <0.35IU/mL.The specimen received for QuantiFERON testing was incubatedby the ordering institution. Specific procedures outlinedin our Directory of Services and in the package insert forthe QuantiFERON Gold (In Tube) test must be followed toenable for proper stimulation of cells for the productionof interferon gamma. Chemiluminescence immunoassaymethodologyPerformed at: [facility] [address] [id number] Director: Kofi Gonzalez PhD, Phone: [phone] No Panel InformationOrdered By: Theresa Hooks on 06-24-2022 Stool Calprotectin 238 ug/g 0-120 [facility] Comment on above: Concentration Interp retation Follow-Up<16 - 50 ug/g Normal None>50 -120 ug/g Borderline Re-evaluate in 4-6 weeks >120 ug/g Abnormal Repeat as clinically indicatedPerformed at: [employer] [facility] [id number] Director: Shazia Wong MD, Phone: [phone] Stool lactoferrin detection by immunoassayOrdered By: Theresa Hooks on 06-24-2022 Lactoferrin IA Ql (Stl) [facility] Erythrocyte sedimentation ra teOrdered By: Theresa Hooks on 06-08-2022 ESR (Bld) [Velocity] 29 mm/h 0-30 [facility] Serum or plasma C reactive p rotein measurement (mass/volume)Ordered By: Theresa Hooks on 06-08-2022 CRP [Mass/Vol] 13.00 mg/L 0.0-3.0 [facility] Comment on above: C-Reactive Protein ( CRP) provides useful information for thediagnosis, therapy and monitoring of inflammatory processesand associated diseases. For the evaluation of Relative Riskfor Cardiovascular Disease, a High Sensitivity CRP (HSCRP)should be ordered. Cervical or vagninal specime n microscopic examination by cytology stain (reported asOrdered By: Dr. Briones on 05-30-2022 Cytology report Cyto stain Doc (Cvx/Vag) Comment . [facility] Comment on above: The Pap smear is a s creening test designed to aid in thedetection of premalignant and malignant conditions of theuterine cervix. It is not a diagnostic procedure andshould not be used as the sole means of detecting cervicalcancer. Both false-positive and false-negative reports dooccur. Detection in cervical specim en of any of human papilloma virus (HPV) 16, 18, 31, 33,Ordered By: Dr. Briones on 05-30-2022 HPV 16+18+31+33+35+39+45+5 1+52+56+58+59+66+68 DNA Probe+sig amp Ql (Cvx) Negative Negative [facility] Comment on above: This nucleic acid am plification test detects fourteen high- risk HPV types (16,18,31,33,35,39,45,51,52,56,58,59,66,68)without differentiation. Laboratory - CytologyOrdered By: Dr. Briones on 05-30-2022 [employer] Power [employer] Engineer Cyto stain Nom (Cvx/Vag) [ID] Comment . [facility] Comment on above: Ricky Herndon totechnologist (ASCP) Laboratory - Miscellaneous t estsOrdered By: Dr. Briones on 05-30-2022 Service comment (Unsp spec) [Interp] Comment . [facility] Comment on above: This liquid based Th inPrep(R) pap test was screened withthe use of an image guided system. Service comment (Unsp spec) [Interp] . . [facility] Liquid-based cerv Pap + CT/G C by TEDDY w reflex to high-risk HPV for ASCUSOrdered By: Dr. Briones on 05-30-2022 Cytology report Cyto stain.thin prep Doc (Cvx/Vag) Comment . [facility] Comment on above: Criteria not met, HP V Genotype not performed.Performed at: [facility] - [facility] [id number] Director: Pat Gibson MD, Phone: [phone] at: =G - [facility] [address] [id number] Director: Pat Gibson MD, Phone: [phone] No Panel InformationOrdered By: Dr. Briones on 05-30-2022 Pathology report final diagnosis Narrative Comment . [facility] Comment on above: NEGATIVE FOR INTRAEP ITHELIAL LESION OR MALIGNANCY. Chocolate RASTOrdered By: Toshia Hooks on 05-03-2022 Chocolate IgE Qn (S) <0.10 kU/L Class 0 [facility] Comment on above: Performed at: [address] [id number] Director: Kofi Gonzalez PhD, Phone: [phone] at: [employer] [id number] Director: Shazia Wong MD, Phone: [phone] Laboratory - Miscellaneous t estsOrdered By: Theresa Hooks on 05-03-2022 Service comment (Unsp spec) [Interp] Comment . [facility] Comment on above: Levels of Specific I gE Class Description of Class ----- < 0.10 0 Negative 0.10 - 0.31 0/I Equivocal/Low 0.32 - 0.55 I Low 0.56 - 1.40 II Moderate 1.41 - 3.90 III High 3.91 - 19.00 IV Very High 19.01 - 100.00 V Very High >100.00 Very High No Panel InformationOrdered By: Theresa Hooks on 05-03-2022 Cytomegalovirus DNA Qual (PCR) Negative Negative [facility] Comment on above: No Cytomegalovirus D NA Detected.This test was developed and its performance characteristicsdetermined by [facility]. It has not been cleared or approvedby the Food and Drug Administration. The FDA hasdetermined that such clearance or approval is notnecessary.Performed at: [employer] [id number] Director: Kofi Gonzalez PhD, Phone: [phone] at: [facility] [employer] [id number] Director: Shazia Wong MD, Phone: [phone] Miscellaneous Test See comment [facility] Comment on above: TEST RESULT LIMITSSullivan County Memorial Hospitaln's IBDX Prognostic Panel Dimple 83 High units 0-50 Negative <45 Equivocal 45 - 50 Positive >50 ACCA 18 units 0-90 Negative <80 Equivocal 80 - 90 Positive >90 ALCA 11 units 0-60 Negative <55 Equivocal 55 - 60 Positive >60 AMCA 32 units 0-100 Negative < 90 Equivocal 90 - 100 Positive >100In patients diagnosed with Crohn's disease, a positive result for two or more antibodies in this panel (Dimple, ACCA, ALCA, or AMCA) has been reported to be associated with an elevated risk of more aggressive disease behavior (1-4). The incidence of complications and/or need for abdominal surgery has been reported to increase with both the number of positive antibodies and with the relative reactivity of individual antibodies (1-4).1. Linda I. et al. Gastroenterology. 2006; [id number]. Dilma M. et al. Gut. 2007; 56:[id number]. Rosa M. et al. Am J Gastroenterology. 2007; 102:1-174. Ana Maria. et al. World J Gastroenterology. 2008; 14:9656-5125This test was developed and its performance characteristics determined [facility]. It has not been cleared or approved by the Food and Drug Administration. The FDA has determined that such clearance or approval is not necessary. ____ TESTING PERFORMED AT [facility]. ORIGINAL REPORT ON FILE IN LAB CONTAINS ADDITIONAL TEST SITE INFORMATION. TEST RESULT LIMITSIB D Expanded Panel Dimple 94 High units 0-50 Negative <45 Equivocal 45 - 50 Positive >50 ACCA 12 units 0-90 Negative <80 Equivocal 80 - 90 Positive >90 ALCA 8 units 0-60 Negative <55 Equivocal 55 - 60 Positive >60 AMCA 38 units 0-100 Negative < 90 Equivocal 90 - 100 Positive >100 This test was developed and its performance characteristics determined by [facility]. It has not been cleared or approved by the Food and Drug Administration. The FDA has determined that such clearance or approval is not necessary.Atypical pANCA Negative NegativeComments Abnormal Suggestive of Crohn's Disease. Pattern is not conclusive for disease behavior risk stratification. TESTING PERFORMED AT [facility]. ORIGINAL REPORT ON FILE IN LAB CONTAINS ADDITIONAL TEST SITE INFORMATION. Scallop Allergen <0.10 kU/L Class 0 [facility] [employer]afood [employer] Allergens (RAST) Negative . [facility] Comment on above: Allergens in this mi x are: Blue mussel Fish [place] Shrimp Tuna Sesame Seed Allergen IgE Antibody <0.10 kU/L Class 0 [facility] Shrimp Allergen 0.37 kU/L Class I [facility] Serum beef IgE antibody assa y (units/volume)Ordered By: Theresa Hooks on 05-03-2022 Beef IgE Qn (S) <0.10 kU/L Class 0 [facility] Serum black walnut IgE antib juma assay (units/volume)Ordered By: Theresa Hooks on 05-03-2022 [place] IgE Qn (S) <0.10 kU/L Class 0 [facility] Serum clam IgE antibody assa y (units/volume)Ordered By: Theresa Hooks on 05-03-2022 Clam IgE Qn (S) <0.10 kU/L Class 0 [facility] Serum codfish IgE antibody a ssay (units/volume)Ordered By: Theresa Hooks on 05-03-2022 Codfish IgE Qn (S) <0.10 kU/L Class 0 [facility] Serum corn IgE antibody assa y (units/volume)Ordered By: Theresa Hooks on 05-03-2022 Mabel IgE Qn (S) <0.10 kU/L Class 0 [facility] Serum cow milk IgE antibody assay (units/volume)Ordered By: Theresa Hooks on 05-03-2022 Cow milk IgE Qn (S) <0.10 kU/L Class 0 [facility] Serum egg white IgE antibody assay (units/volume)Ordered By: Theresa Hooks on 05-03-2022 Egg white IgE Qn (S) <0.10 kU/L Class 0 [facility] Serum mitochondria antibody detectionOrdered By: Theresa Hooks on 05-03-2022 Mitochondria Ab Ql (S) <20.0 Units 0.0-20.0 [facility] Comment on above: Negative 0.0 - 20.0 Equivocal 20.1 - 24.9 Positive >24.9Mitochondrial (M2) Antibodies are found in 90-96% ofpatients with primary biliary cirrhosis. Serum or plasma actin IgG an tibody assay (units/volume)Ordered By: Theresa Hooks on 05-03-2022 Actin IgG Qn 8 Units 0-19 [facility] Comment on above: Negative 0 - 19 Weak positive 20 - 30 Moderate to strong positive >30 Actin Antibodies are found in 52-85% of patients with autoimmune hepatitis or chronic active hepatitis and in 22% of patients with primary biliary cirrhosis. Serum or plasma cytomegalovi odell (CMV) IgG antibody assay (units/volume)Ordered By: Theresa Hooks on 05-03-2022 CMV IgG Qn > 10.00 U/mL 0.00-0.59 [facility] Comment on above: Negative <0.60 Equiv ocal 0.60 - 0.69 Positive >0.69 Serum or plasma cytomegalovi odell (CMV) IgM antibody assay (units/volume)Ordered By: Theresa Hooks on 05-03-2022 CMV IgM Qn < 30.0 AU/mL 0.0-29.9 [facility] Comment on above: Negative <30.0 Equiv ocal 30.0 - 34.9 Positive >34.9A positive result is generally indicative of acuteinfection, reactivation or persistent IgM production. Serum peanut IgE antibody as say (units/volume)Ordered By: Theresa Hooks on 05-03-2022 Peanut IgE Qn (S) <0.10 kU/L Class 0 [facility] Serum pork IgE antibody assa y (units/volume)Ordered By: Theresa Hooks on 05-03-2022 Pork IgE Qn (S) <0.10 kU/L Class 0 [facility] Serum soybean IgE antibody a ssay (units/volume)Ordered By: Theresa Hooks on 05-03-2022 Soybean IgE Qn (S) <0.10 kU/L Class 0 [facility] Serum wheat IgE antibody ass ay (units/volume)Ordered By: Theresa Hooks on 05-03-2022 Wheat IgE Qn (S) <0.10 kU/L Class 0 [facility] Serum whole egg IgE antibody assay (units/volume)Ordered By: Theresa Hooks on 05-03-2022 Whole Egg IgE Qn (S) <0.10 kU/L Class 0 [facility] No Panel InformationOrdered By: Theresa Hooks on 03-26-2022 Endomysial IgA Antibody Negative Negative [facility] Miscellaneous Test See comment [facility] Comment on above: Scanned image report available in EMR Serum IgA measurement (units /volume)Ordered By: Theresa Hoosk on 03-26-2022 IgA Qn (S) 263 mg/dL 87-352 [facility] Comment on above: Performed at: [place] [id number] Director: Kofi Gonzalez PhD, Phone: [phone] Serum or plasma C reactive p rotein measurement (mass/volume)Ordered By: Theresa Hooks on 03-26-2022 CRP [Mass/Vol] 18.30 mg/L 0.0-3.0 [facility] Comment on above: C-Reactive Protein ( CRP) provides useful information for thediagnosis, therapy and monitoring of inflammatory processesand associated diseases. For the evaluation of Relative Riskfor Cardiovascular Disease, a High Sensitivity CRP (HSCRP)should be ordered. Serum tissue transglutaminas e IgA antibody assay (units/volume)Ordered By: Theresa Hooks on 03-26-2022 tTG IgA Qn (S) <2 U/mL 0-3 [facility] Comment on above: Negative 0 - 3 Weak Positive 4 - 10 Positive >10 Tissue Transglutaminase (tTG) has been identified as the endomysial antigen. Studies have demonstr- ated that endomysial IgA antibodies have over 99% specificity for gluten sensitive enteropathy. 24 hour urine alpha 2 globul in/total protein ratio by electrophoresis (mass fraction)Ordered By: Dr. Alicia on 03-21-2022 Alpha 2 globulin Elph (24H U) [Mass fraction] 19.5 % . [facility] 24 hour urine beta globulin/ total protein ratio by electrophoresis (mass fraction)Ordered By: Dr. Alicia on 03-21-2022 Beta globulin Elph (24H U) [Mass fraction] 26.1 % . [facility] 24 hour urine gamma globulin /total protein ratio by electrophoresis (mass fraction)Ordered By: Dr. Alicia on 03-21-2022 Gamma globulin Elph (24H U) [Mass fraction] 34.9 % . [facility] Laboratory - Chemistry and C hemistry - challengeOrdered By: Dr. Alicia on 03-21-2022 Albumin [Mass/Vol] 3.5 g/dL 2.9-4.4 [facility] No Panel InformationOrdered By: Dr. Alicia on 03-21-2022 Addendum Document Comment . [facility] Comment on above: The SPE pattern appe ars unremarkable. Evidence ofmonoclonal protein is not apparent. Xxtxc-4-Dtutapila 0.3 g/dL 0.0-0.4 [facility] Ckdni-8-Gahzwdwfs 0.8 g/dL 0.4-1.0 [facility] Gamma Globulins 1.2 g/dL 0.4-1.8 [facility] Protein Fractions Elph [Inte rp]Ordered By: Dr. Alicia on 03-21-2022 Protein Fractions [Interp] Comment . [facility] Comment on above: Protein electrophore sis scan will follow via computer,mail, or light rail transit operator delivery. Serum albumin to globulin ra alvin by protein electrophoresisOrdered By: Dr. Alicia on 03-21-2022 Albumin/Globulin Elph [Mass ratio] 1.0 0.7-1.7 [facility] Serum globulin measurement ( mass/volume)Ordered By: Dr. Alicia on 03-21-2022 Globulin (S) [Mass/Vol] 3.6 g/dL 2.2-3.9 [facility] Serum or plasma beta globuli n measurement by electrophoresis (mass/volume)Ordered By: Dr. Alicia on 03-21-2022 Beta globulin Elph [Mass/Vol] 1.2 g/dL 0.7-1.3 [facility] Thin prep Papanicolaou smear with manual screeningOrdered By: Dr. Alicia on 03-21-2022 Thin prep Papanicolaou smear with manual screening See comment [facility] Comment on above: Result: Not Observed Total protein bloodOrdered B y: Dr. Alicia on 03-21-2022 Protein [Mass/Vol] 7.1 g/dL 6.0-8.5 [facility] Urine albumin/total protein mass ratio by electrophoresisOrdered By: Dr. Alicia on 03-21-2022 Albumin Elph (U) [Mass fraction] 11.8 % . [facility] Urine alpha 1 globulin/total protein ratio by electrophoresis (mass fraction)Ordered By: Dr. Alicia on 03-21-2022 Alpha 1 globulin Elph (U) [Mass fraction] 7.7 % . [facility] Urine monoclonal protein/tot al protein mass ratio by electrophoresisOrdered By: Dr. Alicia on 03-21-2022 Protein.monoclonal Elph (U) [Mass fraction] See comment [facility] Comment on above: Result: Not Observed Urine protein measurement (m ass/volume)Ordered By: Dr. Alicia on 03-21-2022 Protein (U) [Mass/Vol] 6.5 mg/dL Not Estab. [facility] Absolute lymphocyte countOrd ered By: HEALTH ASSESSMENT on 03-17-2022 Lymphocytes Auto (Unsp spec) [#/Vol] 2.70 10*3/uL 0.83-4.51 [facility] Absolute reticulocyte countO rdered By: HEALTH ASSESSMENT on 03-17-2022 Reticulocytes (Bld) [#/Vol] 0.00 10*3/uL 0-5 [facility] Basophil percentageOrdered B y: HEALTH ASSESSMENT on 03-17-2022 Basophil percentage 3.4 mg/dL 2.5-4.9 [facility] Bilirubin [Mass/Vol] 0.70 mg/dL 0.20-1.00 [facility] Comment on above: For patients on eltr ombopag therapy, use of Dimension [place] TBIL is not recommended. Chloride [Moles/Vol] 103 mmol/L 98-107 [facility] Cholesterol [Mass/Vol] 168 mg/dL <200 [facility] Comment on above: <200 mg/dL Desirable 200-240 mg/dL Borderline >240 mg/dL High Risk Glucose [Mass/Vol] 90 mg/dL 74-106 [facility] Neutrophils (Bld) [#/Vol] 4.8 10*3/uL 2.0-7.7 [facility] Potassium [Moles/Vol] 4.4 mmol/L 3.5-5.1 [facility] Protein [Mass/Vol] 7.5 g/dL 6.4-8.2 [facility] Sodium [Moles/Vol] 138 mmol/L 136-145 [facility] Triglyceride [Mass/Vol] 177 mg/dL <199 [facility] Comment on above: The drugs N-Acetylcy steine and Metamizole may falsely depress this assay.Serum Triglycerides Reference Interval Normal <150 mg/dL Borderline high 150 - 199 mg/dL High 200 - 499 mg/dL Very High > or = 500 mg/dL WBC (Bld) [#/Vol] 8.5 10*3/uL 4.4-11.0 [facility] Bilirubin Test strip Ql (U)O rdered By: HEALTH ASSESSMENT on 03-17-2022 Bilirubin Ql (U) Negative Negative [facility] Blood erythrocytes count (nu mber/volume)Ordered By: HEALTH ASSESSMENT on 03-17-2022 RBC (Bld) [#/Vol] 4.39 10*6/uL 4.2-5.4 [facility] Blood hemoglobin measurement (mass/volume)Ordered By: HEALTH ASSESSMENT on 03-17-2022 Hemoglobin (Bld) [Mass/Vol] 13.2 g/dL 12.0-15.0 [facility] Blood platelet mean volumeOr dered By: HEALTH ASSESSMENT on 03-17-2022 Platelet mean volume (Bld) [Entitic vol] 9.5 fL 6.2-12.0 [facility] Determination of erythrocyte mean corpuscular volume (MCV)Ordered By: HEALTH ASSESSMENT on 03-17-2022 MCV (RBC) [Entitic vol] 89.7 fL 81-99 [facility] Direct bilirubinOrdered By: HEALTH ASSESSMENT on 03-17-2022 Bilirubin.direct [Mass/Vol] 0.12 mg/dL 0.00-0.30 [facility] Hematocrit Auto (Bld) [Volum e fraction]Ordered By: HEALTH ASSESSMENT on 03-17-2022 Hematocrit (Bld) [Volume fraction] 39.4 % 37-47 [facility] Ketones Test strip Ql (U)Ord ered By: HEALTH ASSESSMENT on 03-17-2022 Ketones Ql (U) Negative Negative [facility] Laboratory - Chemistry and C hemistry - challengeOrdered By: HEALTH ASSESSMENT on 03-17-2022 ALP [Catalytic activity/Vol] 85 U/L 45-117 [facility] ALT [Catalytic activity/Vol] 19 U/L 13-56 [facility] Cholesterol.total/Chol esterol in HDL [Mass ratio] 4.00 {ratio} [facility] CO2 [Moles/Vol] 28.0 mmol/L 21.0-32.0 [facility] Globulin (S) [Mass/Vol] 4.4 g/dL 2.2-4.2 [facility] Urea nitrogen/Creatinine [Mass ratio] 14.8 mg/mg 10-20 [facility] Laboratory - Hematology and Cell countsOrdered By: HEALTH ASSESSMENT on 03-17-2022 Erythrocyte distribution width (RBC) [Entitic vol] 38.5 fL 35.1-43.9 [facility] Erythrocyte distribution width (RBC) [Ratio] 11.8 % 11.6-14.6 [facility] MCH (RBC) [Entitic mass] 30.1 pg 27.0-32.0 [facility] Nucleated RBC/100 WBC (Bld) [Ratio] 0 % 0-5 [facility] MCHC Auto (RBC) [Mass/Vol]Or dered By: HEALTH ASSESSMENT on 03-17-2022 MCHC (RBC) [Mass/Vol] 33.5 g/dL 32-36 [facility] Nitrite Test strip Ql (U)Ord ered By: HEALTH ASSESSMENT on 03-17-2022 Nitrite Ql (U) Negative Negative [facility] No Panel InformationOrdered By: HEALTH ASSESSMENT on 03-17-2022 Estimated GFR (MDRD) Amer 148 mL/min >60 [facility] Comment on above: GFR Calc Estimated GFR (MDRD) Non-Af Amer 122 mL/min >60 [facility] Comment on above: Non- GFR Calc Platelets bldOrdered By: ZACKARY LTH ASSESSMENT on 03-17-2022 Platelets (Bld) [#/Vol] 391 10*3/uL 150-450 [facility] Protein Test strip Ql (U)Ord ered By: HEALTH ASSESSMENT on 03-17-2022 Protein Ql (U) Negative Negative [facility] Segmented neutrophils/100 WB C Auto (Bld)Ordered By: HEALTH ASSESSMENT on 03-17-2022 Segmented neutrophils/100 WBC (Bld) 55.8 % 47-70 [facility] Serum or plasma albumin marly urement (mass/volume)Ordered By: HEALTH ASSESSMENT on 03-17-2022 Albumin [Mass/Vol] 3.1 g/dL 3.2-5.0 [facility] Serum or plasma albumin/glob ulin mass ratioOrdered By: HEALTH ASSESSMENT on 03-17-2022 Albumin/Globulin [Mass ratio] 0.7 {ratio} 0.9-2.4 [facility] Serum or plasma calcium marly urement (mass/volume)Ordered By: HEALTH ASSESSMENT on 03-17-2022 Calcium [Mass/Vol] 9.2 mg/dL 8.5-10.1 [facility] Serum or plasma cholesterol in HDL measurement (mass/volume)Ordered By: HEALTH ASSESSMENT on 03-17-2022 Cholesterol in HDL [Mass/Vol] 42 mg/dL >40 [facility] Comment on above: The drugs N-Acetylcy steine and Metamizole may falsely depress this assay. Reference Range HDL <40 mg/dL Low HDL Cholesterol HDL >or= 60 mg/dL High HDL Cholesterol Serum or plasma cholesterol in VLDL measurement (mass/volume)Ordered By: HEALTH ASSESSMENT on 03-17-2022 Cholesterol in VLDL [Mass/Vol] 35 mg/dL 5-40 [facility] Serum or plasma creatinine m easurement (mass/volume)Ordered By: HEALTH ASSESSMENT on 03-17-2022 Creatinine [Mass/Vol] 0.61 mg/dL 0.55-1.02 [facility] Comment on above: The validity of the calculated GFR & GFRAA in patients over 70 years has not been determined. Clinical correlation is essential. Serum or plasma low density lipoprotein (LDL) cholesterol measurement (mass/volume)Ordered By: HEALTH ASSESSMENT on 03-17-2022 Cholesterol in LDL [Mass/Vol] 91 mg/dL 0-130 [facility] Serum or plasma urea nitroge n measurement (mass/volume)Ordered By: HEALTH ASSESSMENT on 03-17-2022 Urea nitrogen [Mass/Vol] 9 mg/dL 7-18 [facility] Serum or plasma uric acid me asurement (mass/volume)Ordered By: HEALTH ASSESSMENT on 03-17-2022 Urate [Mass/Vol] 6.0 mg/dL 2.6-6.0 [facility] Comment on above: The drugs N-Acetylcy steine and Metamizole may falsely depress this assay. Thin prep Papanicolaou smear with manual screeningOrdered By: HEALTH ASSESSMENT on 03-17-2022 Thin prep Papanicolaou smear with manual screening 13 U/L 15-37 [facility] Thin prep Papanicolaou smear with manual screening 7 5-15 [facility] Thin prep Papanicolaou smear with manual screening 148 U/L 84-246 [facility] Urine blood detectionOrdered By: HEALTH ASSESSMENT on 03-17-2022 RBC Ql (U) 25 /ul Negative [facility] Urine clarityOrdered By: [facility] ASSESSMENT on 03-17-2022 Clarity (U) Clear Clear [facility] Urine color determinationOrd ered By: HEALTH ASSESSMENT on 03-17-2022 Color (U) Yellow Yellow [facility] Urine glucose detectionOrder ed By: HEALTH ASSESSMENT on 03-17-2022 Glucose Ql (U) Normal mg/dl Normal [facility] Urine leukocyte esterase det ection by dipstickOrdered By: HEALTH ASSESSMENT on 03-17-2022 Leukocyte esterase Test strip Ql (U) 500 /ul Negative [facility] Urine pHOrdered By: HEALTH A SSESSMENT on 03-17-2022 pH (U) 7.0 [pH] 5.0 - 8.0 [facility] Urine specific gravity measu rementOrdered By: HEALTH ASSESSMENT on 03-17-2022 Specific gravity (U) [Rel density] 1.010 1.002-1.030 [facility] Urobilinogen Auto test strip Ql (U)Ordered By: HEALTH ASSESSMENT on 03-17-2022 Urobilinogen Ql (U) Normal mg/dl Normal [facility] Laboratory - Microbiology an d Antimicrobial susceptibilityon 03-14-2022 SARS-CoV-2 (COVID-19) RNA TEDDY+probe Ql (Unsp spec) Not detected [facility] - Microbiology an d Antimicrobial susceptibilityon 03-13-2022 SARS-CoV-2 (COVID-19) RNA TEDDY+probe Ql (Unsp spec) Not detected [facility] Beta hCG serum qualOrdered B y: Dr. Saucedo on 03-12-2022 Beta HCG ( test) Ql Negative [facility] No Panel Informationon 12-26 Stool Calprotectin 530 ug/g 0-120 [facility] Work Phone: Comment on above: Concentration Interp retation Follow-Up<16 - 50 ug/g Normal None>50 -120 ug/g Borderline Re-evaluate in 4-6 weeks >120 ug/g Abnormal Repeat as clinically indicatedPerformed at: [employer] [address] [id number] Director: Shazia Wong MD, Phone: [phone] Absolute lymphocyte counton 12-22-2021 Lymphocytes Auto (Unsp spec) [#/Vol] 2.51 10*3/uL 0.83-4.51 [facility] Work Phone: Atypical perinuclear antineu trophil cytoplasmic antibodies measurementon 12-22-2021 Neutrophil cytoplasmic Ab.perinuclear.atypica l IF (S) [Titer] <1:20 titer Neg:<1:20 [facility] Work Phone: Comment on above: The atypical pANCA p attern has been observed in asignificant percentage of patients with ulcerative colitis,primary sclerosing cholangitis and autoimmune hepatitis.Performed at: [employer] [id number] Director: Kofi Gonzalez PhD, Phone: [phone] at: [employer] [address] [id number] Director: Shazia Wong MD, Phone: [phone] Basophil percentageon 2021 Basophil percentage < 0.2 AI 0.0-0.9 [facility] Work Phone: Basophils/100 WBC (Bld) 0.5 % 0-1 [facility] Work Phone: Bilirubin [Mass/Vol] 0.40 mg/dL 0.20-1.00 [facility] Work Phone: Comment on above: For patients on eltr ombopag therapy, use of Dimension [place] TBIL is not recommended. Chloride [Moles/Vol] 103 mmol/L 98-107 [facility] Work Phone: Eosinophils/100 WBC (Bld) 1.6 % 0-5 [facility] Work Phone: Glucose [Mass/Vol] 91 mg/dL 74-106 [facility] Work Phone: Neutrophils (Bld) [#/Vol] 6.6 10*3/uL 2.0-7.7 [facility] Work Phone: Neutrophils/100 WBC (Bld) 66.6 % 47-70 [facility] Work Phone: Potassium [Moles/Vol] 4.4 mmol/L 3.5-5.1 [facility] Work Phone: Protein [Mass/Vol] 7.9 g/dL 6.4-8.2 [facility] Work Phone: Sodium [Moles/Vol] 136 mmol/L 136-145 [facility] Work Phone: WBC (Bld) [#/Vol] 9.9 10*3/uL 4.4-11.0 [facility] Work Phone: Blood erythrocytes count (nu mber/volume)on 12-22-2021 RBC (Bld) [#/Vol] 4.63 10*6/uL 4.2-5.4 [facility] Work Phone: Blood hemoglobin measurement (mass/volume)on 12-22-2021 Hemoglobin (Bld) [Mass/Vol] 13.5 g/dL 12.0-15.0 [facility] Work Phone: Blood lymphocytes/100 leukoc yteson 12-22-2021 Lymphocytes/100 WBC (Bld) 25.4 % 19-41 [facility] Work Phone: Blood monocytes/100 leukocyt eson 12-22-2021 Monocytes/100 WBC (Bld) 5.3 % 0-10 [facility] Work Phone: Blood platelet mean volumeon 12-22-2021 Platelet mean volume (Bld) [Entitic vol] 9.4 fL 6.2-12.0 [facility] Work Phone: Determination of erythrocyte mean corpuscular volume (MCV)on 12-22-2021 MCV (RBC) [Entitic vol] 90.5 fL 81-99 [facility] Work Phone: Erythrocyte sedimentation ra filemon 12-22-2021 ESR (Bld) [Velocity] 21 mm/h 0-30 [facility] Work Phone: Hematocrit Auto (Bld) [Volum e fraction]on 12-22-2021 Hematocrit (Bld) [Volume fraction] 41.9 % 37-47 [facility] Work Phone: Interpretation of serum or p lasma protein pattern by immunofixation (narrative resulton 12-22-2021 Protein Fractions Immunofixation Brad [Interp] See comment [facility] Work Phone: Comment on above: NOT OBSERVED Laboratory - Chemistry and C hemistry - challengeon 12-22-2021 ALP [Catalytic activity/Vol] 86 U/L 45-117 [facility] Work Phone: ALT [Catalytic activity/Vol] 17 U/L 13-56 [facility] Work Phone: CO2 [Moles/Vol] 26.0 mmol/L 21.0-32.0 [facility] Work Phone: Globulin (S) [Mass/Vol] 4.6 g/dL 2.2-4.2 [facility] Work Phone: Urea nitrogen/Creatinine [Mass ratio] 11.9 mg/mg 10-20 [facility] Work Phone: Laboratory - Hematology and Cell countson 12-22-2021 Erythrocyte distribution width (RBC) [Entitic vol] 39.3 fL 35.1-43.9 [facility] Work Phone: Erythrocyte distribution width (RBC) [Ratio] 11.9 % 11.6-14.6 [facility] Work Phone: Immature granulocytes/100 WBC (Bld) 0.600 % 0.0-0.9 [facility] Work Phone: Comment on above: IG% - Immature Granu locytes (promyelocytes, myelocytes and metamyelocytes) > 1% indicates that a LEFT SHIFT is Present. MCH (RBC) [Entitic mass] 29.2 pg 27.0-32.0 [facility] Work Phone: Nucleated RBC/100 WBC (Bld) [Ratio] 0 % 0-5 [facility] Work Phone: MCHC Auto (RBC) [Mass/Vol]on 12-22-2021 MCHC (RBC) [Mass/Vol] 32.2 g/dL 32-36 [facility] Work Phone: No Panel Informationon 12-22 Addendum Document Comment . [facility] Work Phone: Comment on above: Protein electrophore sis scan will follow via computer,mail, or light rail transit operator delivery. Centromere B Antibody <0.2 AI 0.0-0.9 [facility] Work Phone: Endomysial IgA Antibody Negative Negative [facility] Work Phone: Estimated GFR (MDRD) Amer 133 mL/min >60 [facility] Work Phone: Comment on above: GFR Calc Estimated GFR (MDRD) Non-Af Amer 110 mL/min >60 [facility] Work Phone: Comment on above: Non- GFR Calc Immunoglobulin E 57 IU/mL 6-495 [facility] Work Phone: Miscellaneous Test See comment [facility] Work Phone: Comment on above: Scanned image report available in EMR [employer] Antibody <0.2 AI 0.0-0.9 [facility] Work Phone: Platelets bldon 12-22-2021 Platelets (Bld) [#/Vol] 397 10*3/uL 150-450 [facility] Work Phone: Serum DNA double strand anti body assay (units/volume)on 12-22-2021 DNA double strand Ab Qn (S) 1 [IU]/mL 0-9 [facility] Work Phone: Comment on above: Negative <5 Equivoca l 5 - 9 Positive >9 Serum IgA measurement (units /volume)on 12-22-2021 IgA Qn (S) 303 mg/dL 87-352 [facility] Work Phone: Comment on above: Performed at: [address] [id number] Director: Kofi Gonzalez PhD, Phone: [phone] Serum Imelda-1 antibody assay (u nits/volume)on 12-22-2021 Imelda-1 extractable nuclear Ab Qn (S) <0.2 AI 0.0-0.9 [facility] Work Phone: Serum Scl-70 extractable nuc lear antibody assay (units/volume)on 12-22-2021 SCL-70 extractable nuclear Ab Qn (S) <0.2 AI 0.0-0.9 [facility] Work Phone: Serum Layne extractable nucl ear antibody detectionon 12-22-2021 Layne extractable nuclear Ab Ql (S) <0.2 AI 0.0-0.9 [facility] Work Phone: Serum [id number] measu rement by electrophoresison 12-22-2021 Alpha 1 globulin Elph [Mass/Vol] 0.3 g/dL 0.0-0.4 [facility] Work Phone: Alpha 1 globulin Elph [Mass/Vol] 1.0 g/dL 0.4-1.0 [facility] Work Phone: Serum classic neutrophil cyt oplasmic antibody assay (units/volume)on 12-22-2021 Neutrophil cytoplasmic Ab.classic Qn (S) <1:20 titer Neg:<1:20 [facility] Work Phone: Serum globulin measurement ( mass/volume)on 12-22-2021 Globulin (S) [Mass/Vol] 4.0 g/dL 2.2-3.9 [facility] Work Phone: Serum or plasma C reactive p rotein measurement (mass/volume)on 12-22-2021 CRP [Mass/Vol] 20.30 mg/L 0.0-3.0 [facility] Work Phone: Comment on above: C-Reactive Protein ( CRP) provides useful information for thediagnosis, therapy and monitoring of inflammatory processesand associated diseases. For the evaluation of Relative Riskfor Cardiovascular Disease, a High Sensitivity CRP (HSCRP)should be ordered. Serum or plasma IgA measurem ent (mass/volume)on 12-22-2021 IgA [Mass/Vol] 289 mg/dL 87-352 [facility] Work Phone: Serum or plasma IgG measurem ent (mass/volume)on 12-22-2021 IgG [Mass/Vol] 1481 mg/dL 586-1602 [facility] Work Phone: Serum or plasma IgM measurem ent (mass/volume)on 12-22-2021 IgM [Mass/Vol] 85 mg/dL 26-217 [facility] Work Phone: Serum or plasma albumin marly urement (mass/volume)on 12-22-2021 Albumin [Mass/Vol] 3.3 g/dL 2.9-4.4 [facility] Work Phone: Serum or plasma albumin/glob ulin mass ratioon 12-22-2021 Albumin/Globulin [Mass ratio] 0.7 {ratio} 0.9-2.4 [facility] Work Phone: Serum or plasma beta globuli n measurement by electrophoresis (mass/volume)on 12-22-2021 Beta globulin Elph [Mass/Vol] 1.3 g/dL 0.7-1.3 [facility] Work Phone: Serum or plasma calcium marly urement (mass/volume)on 12-22-2021 Calcium [Mass/Vol] 9.1 mg/dL 8.5-10.1 [facility] Work Phone: Serum or plasma creatinine m easurement (mass/volume)on 12-22-2021 Creatinine [Mass/Vol] 0.67 mg/dL 0.55-1.02 [facility] Work Phone: Comment on above: The validity of the calculated GFR & GFRAA in patients over 70 years has not been determined. Clinical correlation is essential. Serum or plasma gamma globul in measurement by electrophoresis (mass/volume)on 12-22-2021 Gamma globulin Elph [Mass/Vol] 1.4 g/dL 0.4-1.8 [facility] Work Phone: Serum or plasma immunoelectr ophoresis interpretation (nominal result)on 12-22-2021 Interpretation IEP [Interp] Comment . [facility] Work Phone: Comment on above: No monoclonality det ected. Serum or plasma urea nitroge n measurement (mass/volume)on 12-22-2021 Urea nitrogen [Mass/Vol] 8 mg/dL 7-18 [facility] Work Phone: Serum perinuclear neutrophil cytoplasmic antibody titer by immunofluorescenceon 12-22-2021 Neutrophil cytoplasmic Ab.perinuclear IF (S) [Titer] <1:20 titer Neg:<1:20 [facility] Work Phone: Comment on above: The presence of posi tive fluorescence exhibiting P-ANCA orC-ANCA patterns alone is not specific for the diagnosis ofWegener's Granulomatosis (WG) or microscopic polyangiitis.Decisions about treatment should not be based solely onANCA IFA results. The International ANCA Group Consensusrecommends follow up testing of positive sera with both WI-3 and MPO-ANCA enzyme immunoassays. As many as 5% serumsamples are positive only by EIA. Ref. AM J Clin Pdqkgt3703;111:507-513. Serum tissue transglutaminas e IgA antibody assay (units/volume)on 12-22-2021 tTG IgA Qn (S) <2 U/mL 0-3 [facility] Work Phone: Comment on above: Negative 0 - 3 Weak Positive 4 - 10 Positive >10 Tissue Transglutaminase (tTG) has been identified as the endomysial antigen. Studies have demonstr- ated that endomysial IgA antibodies have over 99% specificity for gluten sensitive enteropathy. Thin prep Papanicolaou smear with manual screeningon 12-22-2021 Thin prep Papanicolaou smear with manual screening 13 U/L 15-37 [facility] Work Phone: Thin prep Papanicolaou smear with manual screening 7 5-15 [facility] Work Phone: Thin prep Papanicolaou smear with manual screening 166 U/L 84-246 [facility] Work Phone: Thin prep Papanicolaou smear with manual screening 0.9 0.7-1.7 [facility] Work Phone: Total protein bloodon 2021 Protein [Mass/Vol] 7.3 g/dL 6.0-8.5 [facility] Work Phone: GLUCOSE ([id number])Ordered By: S ystem Retail District Manager on 03-15-2021 Glucose [Mass/Vol] 82 mg/dL Normal 65-99 [facility]; [facility] Work Phone: Comment on above: PATIENT WAS FASTINGP ERFORMED BY: [place] Digital Path6370 [facility] [id number] LIPID PANEL (79509)Ordered B y: Preconstruction Manager on 03-15-2021 Cholesterol [Mass/Vol] 210 mg/dL Abnormal 100-199 [facility]; [facility] Work Phone: Comment on above: PATIENT WAS FASTINGP ERFORMED BY: MADISON [employer]70 [facility] [id number] Cholesterol in HDL [Mass/Vol] 53 mg/dL Normal [facility]; [facility] Work Phone: Comment on above: PATIENT WAS FASTINGP ERFORMED BY: [facility] Prxcua9568 [facility] [place] [id number] Triglyceride [Mass/Vol] 226 mg/dL Abnormal 0-149 [facility]; [facility] Work Phone: Comment on above: PATIENT WAS FASTINGP ERFORMED BY: [facility] Zxeuye6448 Pugh [facility] [id number] LIPID PANEL (97181) 39 mg/dL Normal 5-40 [facility]; [facility] Work Phone: Comment on above: PATIENT WAS FASTINGP ERFORMED BY: [facility] Rcgljb9118 [facility] [id number] LIPID PANEL (80338) 118 mg/dL Abnormal 0-99 [facility]; [facility] Work Phone: Comment on above: PATIENT WAS FASTINGP ERFORMED BY: [facility] Xvqgbc6933 [facility] [id number] LIPID PANEL (74107) 2.2 {ratio} Normal 0.0-3.2 [facility] Work Phone: Comment on above: LDL/HDL Ratio Men Wo men 1/2 Avg.Risk 1.0 1.5 Avg.Risk 3.6 3.2 2X Avg.Risk 6.2 5.0 3X Avg.Risk 8.0 6.1 PATIENT WAS FASTINGP ERFORMED BY: [facility] Rfmzgi2340 [facility] [place] [id number] CBC W/AUTO DIFF WBC (86698)O rdered By: Preconstruction Manager on 02-15-2020 Basophils (Bld) [#/Vol] 0.1 {x10E3/uL} Normal 0.0-0.2 [facility] Work Phone: Comment on above: Test(s) 955159-HGJ-C ; 631397-DPA-J; 002838-Ihtftuznwwach; 282097-Mfexybyrnws, Total; 615433-KAK-W (Total); 108753-Cbaoh LDL-P; 943736-CKU Size; 407767-OY-GB Scorewas developed and its performance characteristics determinedby [employer]. It has not been cleared or approved by the Foodand Drug Administration.PATIENT WAS FASTINGPERFORMED BY: Meijob [address] [id number] BY: DreamHeart6370 [facility] [id number] Basophils (Bld) [#/Vol] 0.1 10*3/uL Normal 0.0-0.2 [facility]; [facility] Work Phone: Comment on above: Test(s) 489767-YOQ-V ; 729374-JLX-F; 339953-Stjeeonmanfgk; 097151-Wmgtnpyxlqf, Total; 644014-CJG-I (Total); 139213-Txtos LDL-P; 041982-TYI Size; 062721-AU-FB Scorewas developed and its performance characteristics determinedby [employer]. It has not been cleared or approved by the Foodand Drug Administration.PATIENT WAS FASTINGPERFORMED BY: Meijob [address] [id number] BY: DreamHeart6370 [facility] [id number] Basophils/100 WBC (Bld) 1 % Normal [facility] Work Phone: Comment on above: Test(s) 764193-LZS-T ; 639815-VWZ-J; 371170-Iaeohkiwrgkzw; 330136-Yrqbcdkdvvy, Total; 808637-HOF-G (Total); 761080-Hqold LDL-P; 245024-RNH Size; 839724-CG-XW Scorewas developed and its performance characteristics determinedby [employer]. It has not been cleared or approved by the Foodand Drug Administration.PATIENT WAS FASTINGPERFORMED BY: Meijob [address] [id number] BY: [employer]70 [facility] [id number] Eosinophils (Bld) [#/Vol] 0.1 {x10E3/uL} Normal 0.0-0.4 [facility] Work Phone: Comment on above: Test(s) 412062-PAY-V ; 284015-ATZ-O; 826511-Gwhteelihjqti; 855522-Bjzaxoynvae, Total; 039535-WBI-V (Total); 270573-Iviqu LDL-P; 527014-KEB Size; 852712-BW-GL Scorewas developed and its performance characteristics determinedby [employer]. It has not been cleared or approved by the Foodand Drug Administration.PATIENT WAS FASTINGPERFORMED BY: Meijob [address] [id number] BY: DreamHeart6370 [facility] [id number] Eosinophils (Bld) [#/Vol] 0.1 10*3/uL Normal 0.0-0.4 [facility]; [facility] Work Phone: Comment on above: Test(s) 235463-UXL-Y ; 617469-ZBZ-Q; 941284-Jzvkjdweccwin; 475626-Waucdxnuays, Total; 950093-OVX-B (Total); 951801-Fezjs LDL-P; 226407-XNV Size; 595792-CG-LV Scorewas developed and its performance characteristics determinedby [employer]. It has not been cleared or approved by the Foodand Drug Administration.PATIENT WAS FASTINGPERFORMED BY: [employer] [address] [id number] BY: CliftonVirtua MarltonUcejmf3490 [facility] [id number] Eosinophils/100 WBC (Bld) 2 % Normal [facility] Work Phone: Comment on above: Test(s) 101114-ZUC-U ; 030500-ZCB-B; 706806-Hpxqnfivvewuf; 650540-Lgzyzsljtty, Total; 323768-UQA-P (Total); 471187-Jjesk LDL-P; 260348-BON Size; 497655-MK-PW Scorewas developed and its performance characteristics determinedby [employer]. It has not been cleared or approved by the Foodand Drug Administration.PATIENT WAS FASTINGPERFORMED BY: MyTr[employer] [id number] BY: [place] Goqwgh2504 [facility] [id number] Erythrocyte distribution width (RBC) [Ratio] 11.2 % Abnormal 11.7-15.4 [facility] Work Phone: Comment on above: Test(s) 199789-ORJ-C ; 759407-SXC-A; 587173-Pngbngnunsffb; 562702-Ltphqawwmsf, Total; 794592-YUF-L (Total); 549318-Blqif LDL-P; 063733-SNH Size; 199064-QV-CK Scorewas developed and its performance characteristics determinedby [employer]. It has not been cleared or approved by the Foodand Drug Administration.PATIENT WAS FASTINGPERFORMED BY: Meijob [address] [id number] BY: Central [employer]70 [facility] [id number] Hematocrit (Bld) [Volume fraction] 40.0 % Normal 34.0-46.6 [facility] Work Phone: Comment on above: Test(s) 415911-WZX-S ; 935856-JJS-I; 937189-Hikdhklecdedx; 834293-Spueafwxfam, Total; 369430-OKT-N (Total); 975104-Kiwxp LDL-P; 092630-NHL Size; 542080-OU-YU Scorewas developed and its performance characteristics determinedby [employer]. It has not been cleared or approved by the Foodand Drug Administration.PATIENT WAS FASTINGPERFORMED BY: Meijob [address] [id number] BY: [employer] Rgfmbh2975 [facility]ugh [facility] [id number] Hemoglobin (Bld) [Mass/Vol] 13.2 g/dL Normal 11.1-15.9 [facility] Work Phone: Comment on above: Test(s) 313782-VUB-T ; 437466-MJC-B; 010011-Qdrtsubijxrui; 512932-Ianmvjczpcd, Total; 769059-ZIN-R (Total); 596658-Xnezl LDL-P; 954197-VLA Size; 063233-WU-RV Scorewas developed and its performance characteristics determinedby [employer]. It has not been cleared or approved by the Foodand Drug Administration.PATIENT WAS FASTINGPERFORMED BY: Meijob [address] [id number] BY: [employer]70 [facility] [id number] Immature granulocytes (Bld) [#/Vol] 0.0 {x10E3/uL} Normal 0.0-0.1 [facility] Work Phone: Comment on above: Test(s) 192770-LTH-V ; 486347-QTI-C; 488372-Kqbvrzujhwsia; 485980-Izmlgktczvk, Total; 593472-ZOD-U (Total); 246956-Reqmz LDL-P; 262604-ZMH Size; 930902-TQ-AL Scorewas developed and its performance characteristics determinedby [employer]. It has not been cleared or approved by the Foodand Drug Administration.PATIENT WAS FASTINGPERFORMED BY: [employer] [address] [id number] BY: CliftonVirtua MarltonAntmfx4093 [facility] [id number] Immature granulocytes (Bld) [#/Vol] 0.0 10*3/uL Normal 0.0-0.1 [facility]; [facility] Work Phone: Comment on above: Test(s) 161756-CAT-M ; 183539-CEV-E; 255191-Opvmaasxsphkm; 495770-Nrwteoyvtup, Total; 247313-ZUJ-L (Total); 732268-Afzzp LDL-P; 872174-SVT Size; 616498-TZ-FM Scorewas developed and its performance characteristics determinedby [employer]. It has not been cleared or approved by the Foodand Drug Administration.PATIENT WAS FASTINGPERFORMED BY: Meijob [address] [id number] BY: Liquid RoboticsVirtua MarltonUejsuc8275 [facility] [id number] Immature granulocytes/100 WBC (Bld) 0 % Normal [facility] Work Phone: Comment on above: Test(s) 458713-EOF-R ; 808168-VXL-Z; 310506-Tvyjjouhxbrns; 774751-Vrarnykwent, Total; 698555-YTQ-Z (Total); 130694-Ynzbf LDL-P; 941982-TEW Size; 750475-AG-NR Scorewas developed and its performance characteristics determinedby [employer]. It has not been cleared or approved by the Foodand Drug Administration.PATIENT WAS FASTINGPERFORMED BY: Meijob [address] [id number] BY: [employer] Ecmcsq1579 [facility] [id number] Lymphocytes (Bld) [#/Vol] 2.6 {x10E3/uL} Normal 0.7-3.1 [facility] Work Phone: Comment on above: Test(s) 828461-IPO-Z ; 710025-LXI-W; 870829-Fkwtcirskofmz; 305183-Wipdbraqbew, Total; 725564-SWH-H (Total); 247686-Ohqdy LDL-P; 839990-UFB Size; 986840-BF-AT Scorewas developed and its performance characteristics determinedby [employer]. It has not been cleared or approved by the Foodand Drug Administration.PATIENT WAS FASTINGPERFORMED BY: [employer] [address] [id number] BY: Liquid RoboticsVirtua MarltonEpfive6070 [facility] [id number] Lymphocytes (Bld) [#/Vol] 2.6 10*3/uL Normal 0.7-3.1 [facility]; [facility] Work Phone: Comment on above: Test(s) 977466-DYX-A ; 131756-MGU-D; 758457-Gzxouhjffxbjs; 694657-Znqnfyumreu, Total; 757121-BNW-K (Total); 478623-Agebn LDL-P; 310575-OPM Size; 228989-XA-DG Scorewas developed and its performance characteristics determinedby [employer]. It has not been cleared or approved by the Foodand Drug Administration.PATIENT WAS FASTINGPERFORMED BY: Meijob [address] [id number] BY: [employer]70 [facility] [id number] Lymphocytes/100 WBC (Bld) 29 % Normal [facility] Work Phone: Comment on above: Test(s) 244457-QFK-Q ; 243986-PXW-O; 244937-Wwloaewdxejig; 459494-Qxifgggbrby, Total; 121432-GPP-M (Total); 410157-Scfhk LDL-P; 230369-PCA Size; 658824-DV-XN Scorewas developed and its performance characteristics determinedby [employer]. It has not been cleared or approved by the Foodand Drug Administration.PATIENT WAS FASTINGPERFORMED BY: Meijob [address] [id number] BY: DreamHeart6370 [facility] [id number] MCH (RBC) [Entitic mass] 30.3 pg Normal 26.6-33.0 [facility] Work Phone: Comment on above: Test(s) 070859-DSB-H ; 531230-AKH-Z; 573875-Ezoitdfrdvkxm; 729045-Telswjbfygc, Total; 136328-MJM-K (Total); 852057-Dnhng LDL-P; 030476-COX Size; 268002-AS-CH Scorewas developed and its performance characteristics determinedby [employer]. It has not been cleared or approved by the Foodand Drug Administration.PATIENT WAS FASTINGPERFORMED BY: Meijob [address] [id number] BY: DreamHeart6370 [facility] [id number] MCHC (RBC) [Mass/Vol] 33.0 g/dL Normal 31.5-35.7 [facility] Internal Medicine Work Phone: Comment on above: Test(s) 830247-GHT-Y ; 025482-ZNZ-Z; 922401-Okrfosaynqsqj; 726409-Gyrolryokhd, Total; 243349-QSZ-V (Total); 910989-Efslg LDL-P; 334680-BMT Size; 329022-UF-YJ Scorewas developed and its performance characteristics determinedby [employer]. It has not been cleared or approved by the Foodand Drug Administration.PATIENT WAS FASTINGPERFORMED BY: [employer] [id number] BY: DreamHeart6370 [facility] [id number] MCV (RBC) [Entitic vol] 92 fL Normal 79-97 [facility] Medicine Work Phone: Comment on above: Test(s) 155816-VQE-W ; 694539-FTZ-Y; 797740-Plsyeifrtdyeq; 818898-Yuzqergdpme, Total; 308600-MNF-Y (Total); 838085-Tcrlw LDL-P; 094241-RBI Size; 008853-QS-JT Scorewas developed and its performance characteristics determinedby [employer]. It has not been cleared or approved by the Foodand Drug Administration.PATIENT WAS FASTINGPERFORMED BY: Meijob [address] [id number] BY: [employer] Zqjoeg7276 [facility] [id number] Monocytes (Bld) [#/Vol] 0.7 {x10E3/uL} Normal 0.1-0.9 [facility] Medicine Work Phone: Comment on above: Test(s) 556621-EZS-U ; 069699-SAL-P; 323364-Qhrtrxqfsmirt; 401887-Ayxjaaogfsp, Total; 625102-FJH-U (Total); 593408-Bwwgx LDL-P; 330079-UVF Size; 917375-FK-OO Scorewas developed and its performance characteristics determinedby [employer]. It has not been cleared or approved by the Foodand Drug Administration.PATIENT WAS FASTINGPERFORMED BY: MyTrade[address] [id number] BY: Liquid RoboticsAdvanced Care Hospital of Southern New MexicoDbqcqc9268 [facility] [id number] Monocytes (Bld) [#/Vol] 0.7 10*3/uL Normal 0.1-0.9 [facility]; [facility] Work Phone: Comment on above: Test(s) 227004-XLZ-K ; 576980-CMH-F; 826761-Cfjuynopvqxvk; 160884-Lkbwwutjsif, Total; 328826-LXG-W (Total); 214962-Txoaq LDL-P; 867084-FBZ Size; 255908-JN-UI Scorewas developed and its performance characteristics determinedby [employer]. It has not been cleared or approved by the Foodand Drug Administration.PATIENT WAS FASTINGPERFORMED BY: Meijob [address] [id number] BY: [employer]70 [facility] [id number] Monocytes/100 WBC (Bld) 7 % Normal [facility] Work Phone: Comment on above: Test(s) 948242-TCC-W ; 384007-QTS-C; 758203-Fvzvivkqxfzex; 780679-Tkyoivizuqo, Total; 300925-OYP-J (Total); 159037-Cccya LDL-P; 745937-HES Size; 014509-IK-SY Scorewas developed and its performance characteristics determinedby [employer]. It has not been cleared or approved by the Foodand Drug Administration.PATIENT WAS FASTINGPERFORMED BY: MyTrade[address] [id number] BY: [employer] Yvtchn5957 [facility] [id number] Neutrophils (Bld) [#/Vol] 5.5 {x10E3/uL} Normal 1.4-7.0 [facility] Work Phone: Comment on above: Test(s) 469761-PDN-X ; 188692-LDR-V; 727242-Mrhareoahiocz; 599762-Zoboljnytnz, Total; 908937-KCC-J (Total); 710564-Ouqre LDL-P; 793486-NAD Size; 720458-MI-BS Scorewas developed and its performance characteristics determinedby [employer]. It has not been cleared or approved by the Foodand Drug Administration.PATIENT WAS FASTINGPERFORMED BY: Meijob [address] [id number] BY: [employer]70 [facility] [id number] Neutrophils (Bld) [#/Vol] 5.5 10*3/uL Normal 1.4-7.0 [facility]; [facility] Work Phone: Comment on above: Test(s) 185128-IDF-Q ; 979792-LYT-T; 195346-Tssihiruqobqx; 810371-Qdquxakvvtr, Total; 645573-YKU-N (Total); 177881-Hzatu LDL-P; 278852-YVD Size; 507414-CK-LM Scorewas developed and its performance characteristics determinedby [employer]. It has not been cleared or approved by the Foodand Drug Administration.PATIENT WAS FASTINGPERFORMED BY: Meijob [address] [id number] BY: DreamHeart6370 [facility] [id number] Neutrophils/100 WBC (Bld) 61 % Normal [facility] Work Phone: Comment on above: Test(s) 422370-RPX-J ; 315748-AEN-V; 424616-Wtocrudmyshtc; 768556-Roauqmrkrwu, Total; 037942-OMC-E (Total); 106419-Biwab LDL-P; 755536-OXP Size; 266371-HZ-PX Scorewas developed and its performance characteristics determinedby [employer]. It has not been cleared or approved by the Foodand Drug Administration.PATIENT WAS FASTINGPERFORMED BY: MyTr[employer] [id number] BY: [employer] Eioggi8030 [facility] [id number] Platelets (Bld) [#/Vol] 305 {x10E3/uL} Normal 150-450 [facility] Internal Medicine Work Phone: Comment on above: Test(s) 865300-BPR-C ; 408696-TQB-E; 495925-Gbisowjelavew; 943333-Srmkyiwkqlq, Total; 569926-DSL-I (Total); 547831-Hnjga LDL-P; 874612-FNF Size; 038716-GN-AO Scorewas developed and its performance characteristics determinedby [employer]. It has not been cleared or approved by the Foodand Drug Administration.PATIENT WAS FASTINGPERFORMED BY: [employer] [id number] BY: Clifton Tyavuy7868 [facility] [id number] Platelets (Bld) [#/Vol] 305 10*3/uL Normal 150-450 [facility] Internal [facility]; [facility] Work Phone: Comment on above: Test(s) 490137-QHJ-T ; 273375-YFB-A; 245576-Oblyddqxmhrfw; 518839-Rbitpfrwppp, Total; 762346-SNI-Q (Total); 089555-Ojabo LDL-P; 090017-LOY Size; 507005-ZU-NZ Scorewas developed and its performance characteristics determinedby [employer]. It has not been cleared or approved by the Foodand Drug Administration.PATIENT WAS FASTINGPERFORMED BY: MyTr[employer] [id number] BY: CliftonVirtua MarltonBmopbd5889 [facility] [id number] RBC (Bld) [#/Vol] 4.36 {x10E6/uL} Normal 3.77-5.28 [facility] Internal Medicine Work Phone: Comment on above: Test(s) 220412-AHO-S ; 649701-ZWY-L; 520808-Jjvyfaevkfxaw; 788514-Wwwnqqshhbp, Total; 632679-MCK-B (Total); 867677-Nluay LDL-P; 145888-TMB Size; 958134-CW-SL Scorewas developed and its performance characteristics determinedby [employer]. It has not been cleared or approved by the Foodand Drug Administration.PATIENT WAS FASTINGPERFORMED BY: Meijob [address] [id number] BY: [employer] Oddilu3385 [facility] [id number] RBC (Bld) [#/Vol] 4.36 10*6/uL Normal 3.77-5.28 [facility] ehensive Internal Medicine; [facility] Work Phone: Comment on above: Test(s) 726805-DQC-V ; 333452-XBT-Z; 286539-Fdjaporherszl; 206252-Pmnukqdzsmw, Total; 664317-PEI-X (Total); 741175-Xyakx LDL-P; 077053-HDM Size; 239607-KL-XZ Scorewas developed and its performance characteristics determinedby [employer]. It has not been cleared or approved by the Foodand Drug Administration.PATIENT WAS FASTINGPERFORMED BY: Meijob [address] [id number] BY: [employer] Bnpmdq6420 [facility] [id number] WBC (Bld) [#/Vol] 8.9 {x10E3/uL} Normal 3.4-10.8 [facility] Internal Medicine Work Phone: Comment on above: Test(s) 586781-LJK-H ; 883446-OFV-D; 471353-Uframgocsdsyg; 178698-Eftolhcxwyk, Total; 223445-XMI-W (Total); 631838-Xzsaq LDL-P; 429654-IAF Size; 750886-JF-RX Scorewas developed and its performance characteristics determinedby [employer]. It has not been cleared or approved by the Foodand Drug Administration.PATIENT WAS FASTINGPERFORMED BY: [employer] [id number] BY: [employer]70 [facility] [id number] WBC (Bld) [#/Vol] 8.9 10*3/uL Normal 3.4-10.8 [facility] Internal Medicine; [facility] Work Phone: Comment on above: Test(s) 578502-KZE-D ; 984552-KAN-N; 640839-Rodcppyctxdmr; 906109-Zilydvbvpqq, Total; 379906-BMV-D (Total); 688852-Hayzo LDL-P; 815296-SRJ Size; 002717-TA-MR Scorewas developed and its performance characteristics determinedby [employer]. It has not been cleared or approved by the Foodand Drug Administration.PATIENT WAS FASTINGPERFORMED BY: [employer] [id number] BY: Dream[employer]6370 [facility] [id number] METABOLIC PANEL, COMPREHENSI VE (51223)Ordered By: Preconstruction Manager on 02-15-2020 Albumin [Mass/Vol] 3.9 g/dL Normal 3.9-5.0 [facility] Internal Medicine Work Phone: Comment on above: Test(s) 260293-DWA-F ; 763051-ZXE-I; 153641-Runzbyvumlckh; 882829-Rhgjzzhlsgy, Total; 935793-APW-X (Total); 423753-Pobyy LDL-P; 043620-ZTD Size; 824329-GU-RC Scorewas developed and its performance characteristics determinedby [facility]. It has not been cleared or approved by the Foodand Drug Administration.PATIENT WAS FASTINGPERFORMED BY: [employer] [id number] BY: DreamHeart6370 [facility] [id number] Albumin/Globulin [Mass ratio] 1.3 {ratio} Normal 1.2-2.2 [facility] Internal Medicine Work Phone: Comment on above: Test(s) 209551-DNP-U ; 433211-WHZ-T; 080941-Slnyqawzrsuxx; 894133-Afmazenqrui, Total; 869946-JYW-M (Total); 105488-Kncaf LDL-P; 772372-XYP Size; 656690-ES-WZ Scorewas developed and its performance characteristics determinedby [facility]. It has not been cleared or approved by the Foodand Drug Administration.PATIENT WAS FASTINGPERFORMED BY: Meijob [address] [id number] BY: Crowd[employer]ptic [address] [place] [address] [id number] ALP [Catalytic activity/Vol] 65 [iU]/L Normal 39-117 [facility] Work Phone: Comment on above: Test(s) 266761-TXO-M ; 265787-UIG-F; 098961-Vjovfczexndiu; 696607-Wbkxqegciod, Total; 778462-HOL-O (Total); 388876-Mnjwq LDL-P; 934091-ZGM Size; 055606-GM-YC Scorewas developed and its performance characteristics determinedby [facility]. It has not been cleared or approved by the Foodand Drug Administration.PATIENT WAS FASTINGPERFORMED BY: Meijob [address] [id number] BY: [employer] Nfrtbs6299 [facility] [id number] ALP [Catalytic activity/Vol] 65 U/L Normal 39-117 [facility]; [facility] Work Phone: Comment on above: Test(s) 438181-ARG-Z ; 947110-LZY-Y; 138193-Fzpbmeubsbatm; 048406-Igfkszordgm, Total; 911417-NLN-K (Total); 373621-Spdda LDL-P; 170454-NTB Size; 612720-DX-WV Scorewas developed and its performance characteristics determinedby [facility]. It has not been cleared or approved by the Foodand Drug Administration.PATIENT WAS FASTINGPERFORMED BY: BN [employer] [id number] BY: Liquid RoboticsVirtua MarltonUutcin7700 [facility] [id number] ALT [Catalytic activity/Vol] 29 [iU]/L Normal 0-32 [facility] Work Phone: Comment on above: Test(s) 834598-HDR-H ; 807333-AZP-P; 069429-Oqgvqnujhobvx; 247952-Zlfrjqbsdcs, Total; 664545-KNZ-O (Total); 563344-Vwbxe LDL-P; 899167-LNV Size; 475288-NH-TW Scorewas developed and its performance characteristics determinedby [facility]. It has not been cleared or approved by the Foodand Drug Administration.PATIENT WAS FASTINGPERFORMED BY: [facility] [address] [id number] BY: Liquid RoboticsVirtua MarltonDdlykp8579 [facility] [id number] ALT [Catalytic activity/Vol] 29 U/L Normal 0-32 [facility]; [facility] Work Phone: Comment on above: Test(s) 753353-QNV-T ; 042284-QPE-L; 192221-Vtmgcevczlnlb; 373570-Gmynhcantgg, Total; 241188-GHG-M (Total); 439874-Wwfes LDL-P; 692545-UIZ Size; 673932-NH-JJ Scorewas developed and its performance characteristics determinedby [facility]. It has not been cleared or approved by the Foodand Drug Administration.PATIENT WAS FASTINGPERFORMED BY: [employer] [id number] BY: Liquid RoboticsVirtua MarltonSxbaxy7978 [facility] [id number] AST [Catalytic activity/Vol] 30 [iU]/L Normal 0-40 [facility] Work Phone: Comment on above: Test(s) 938005-ZJT-J ; 919242-CDM-P; 348389-Jcvxxlxnhecws; 671778-Senialjznlh, Total; 492992-QOX-C (Total); 327470-Hsywz LDL-P; 503196-MNP Size; 788222-OS-SS Scorewas developed and its performance characteristics determinedby [facility]. It has not been cleared or approved by the Foodand Drug Administration.PATIENT WAS FASTINGPERFORMED BY: [employer] [id number] BY: Clifton Ssuonk7267 [facility] [id number] AST [Catalytic activity/Vol] 30 U/L Normal 0-40 [facility]; [facility] Work Phone: Comment on above: Test(s) 110268-XLS-N ; 113620-BKU-R; 890825-Vrnesnedypsef; 234845-Huwoxxobruw, Total; 987479-NZV-E (Total); 762291-Axeqz LDL-P; 310978-FNP Size; 252041-SR-ZV Scorewas developed and its performance characteristics determinedby [facility]. It has not been cleared or approved by the Foodand Drug Administration.PATIENT WAS FASTINGPERFORMED BY: Meijob [address] [id number] BY: [employer]70 [facility] [id number] Bilirubin [Mass/Vol] 0.3 mg/dL Normal 0.0-1.[address] [facility] Internal Medicine Work Phone: Comment on above: Test(s) 946568-UST-V ; 763524-RFN-U; 999147-Fhyhiworvsuav; 319591-Ifkzssgnxis, Total; 187893-XRJ-M (Total); 255677-Byrcs LDL-P; 675440-UEW Size; 138593-FQ-QT Scorewas developed and its performance characteristics determinedby [facility]. It has not been cleared or approved by the Foodand Drug Administration.PATIENT WAS FASTINGPERFORMED BY: Meijob [address] [id number] BY: DreamHeart6370 [facility] [id number] Calcium [Mass/Vol] 9.6 mg/dL Normal 8.7-10.2 [facility] Medicine Work Phone: Comment on above: Test(s) 620801-DGM-F ; 924909-IIH-B; 048358-Nxnuzgobcxttc; 472120-Mbjnitbjdhi, Total; 189522-UZU-C (Total); 007517-Yxefl LDL-P; 289656-RCH Size; 668768-XU-HI Scorewas developed and its performance characteristics determinedby [facility]. It has not been cleared or approved by the Foodand Drug Administration.PATIENT WAS FASTINGPERFORMED BY: Meijob [address] [id number] BY: [employer]70 [facility] [id number] Chloride [Moles/Vol] 100 mmol/L Normal 96-[address] [facility] Internal Medicine Work Phone: Comment on above: Test(s) 763755-UWF-I ; 132084-CFX-G; 948278-Jftyzebwlplao; 252235-Uxfzqzawpsy, Total; 700534-DZS-Y (Total); 200866-Jpitm LDL-P; 957647-RZQ Size; 812967-IP-LZ Scorewas developed and its performance characteristics determinedby [facility]. It has not been cleared or approved by the Foodand Drug Administration.PATIENT WAS FASTINGPERFORMED BY: Meijob [address] [id number] BY: DreamHeart6370 [facility] [id number] CO2 [Moles/Vol] 25 mmol/L Normal 20-[address] [facility] Internal Medicine Work Phone: Comment on above: Test(s) 331549-AYP-T ; 709217-VDZ-G; 705886-Jntoqryuvpwqy; 562915-Dakfygqxfrr, Total; 510115-VWX-Z (Total); 320454-Xqved LDL-P; 439616-DXX Size; 330353-ZI-YJ Scorewas developed and its performance characteristics determinedby [facility]. It has not been cleared or approved by the Foodand Drug Administration.PATIENT WAS FASTINGPERFORMED BY: [employer] [id number] BY: Clifton Ddhomw5980 [facility] [id number] Creatinine [Mass/Vol] 0.54 mg/dL Abnormal 0.57-1.00 [facility] Work Phone: Comment on above: Test(s) 802954-VEE-A ; 229972-LTQ-D; 792798-Ptskwmifuxcmi; 783889-Mtbzazpyafu, Total; 223474-VHH-Y (Total); 365880-Eodmj LDL-P; 102359-QKQ Size; 830512-GL-ZE Scorewas developed and its performance characteristics determinedby [facility]. It has not been cleared or approved by the Foodand Drug Administration.PATIENT WAS FASTINGPERFORMED BY: [employer] [id number] BY: DreamHeart6370 [facility] [id number] GFR/1.73 sq M predicted among blacks CKD-EPI (S/P/Bld) [Vol rate/Area] 149 mL/min/1.73 Normal [facility] Internal Medicine Work Phone: Comment on above: Test(s) 451425-TEL-L ; 413506-QJO-Q; 050318-Uyruoasdwqbqj; 239580-Ruzvisyuffx, Total; 376103-PSQ-G (Total); 118118-Hlmiw LDL-P; 954426-MSC Size; 069735-EG-ML Scorewas developed and its performance characteristics determinedby [facility]. It has not been cleared or approved by the Foodand Drug Administration.PATIENT WAS FASTINGPERFORMED BY: Meijob [address] [id number] BY: DreamHeart6370 [facility] [id number] GFR/1.73 sq M predicted among non-blacks CKD-EPI (S/P/Bld) [Vol rate/Area] 129 mL/min/1.73 [facility] Work Phone: Comment on above: Test(s) 009256-RYE-Q ; 721244-NJT-Q; 688422-Ihakemisfbeil; 397246-Xfomukagclz, Total; 537195-MUH-H (Total); 330443-Bxzua LDL-P; 227399-KXK Size; 301989-FB-FT Scorewas developed and its performance characteristics determinedby [facility]. It has not been cleared or approved by the Foodand Drug Administration.PATIENT WAS FASTINGPERFORMED BY: Meijob [address] [id number] BY: [employer]70 [facility] [id number] Globulin (S) [Mass/Vol] 3.1 g/dL Normal 1.5-4.5 [facility] Internal Medicine Work Phone: Comment on above: Test(s) 615858-XQM-D ; 418729-QWJ-L; 429159-Rwagvmsxicmyr; 064453-Iosyybdgney, Total; 052056-CCC-K (Total); 440666-Wlxtu LDL-P; 749179-QZH Size; 377206-RX-JQ Scorewas developed and its performance characteristics determinedby [facility]. It has not been cleared or approved by the Foodand Drug Administration.PATIENT WAS FASTINGPERFORMED BY: Meijob [address] [id number] BY: DreamHeart6370 [facility] [id number] Glucose [Mass/Vol] 84 mg/dL Normal 65-99 [facility] Internal Medicine Work Phone: Comment on above: Test(s) 664029-IPL-R ; 573379-QRL-F; 170834-Modtwmeefdihi; 346819-Zgikjhuurii, Total; 878317-LJN-F (Total); 251266-Ovcqr LDL-P; 842040-RGI Size; 801666-CT-QE Scorewas developed and its performance characteristics determinedby [facility]. It has not been cleared or approved by the Foodand Drug Administration.PATIENT WAS FASTINGPERFORMED BY: Meijob [address] [id number] BY: Liquid RoboticsVirtua MarltonRxkhpo9193 [facility] [id number] Potassium [Moles/Vol] 4.7 mmol/L Normal 3.5-5.2 [facility] Internal Medicine Work Phone: Comment on above: Test(s) 979474-FOR-R ; 904573-OBR-E; 587521-Lwrhmeajwqhlv; 574578-Mxgzscgbcat, Total; 689853-EZL-G (Total); 090023-Avpto LDL-P; 780030-OHJ Size; 105993-SO-BG Scorewas developed and its performance characteristics determinedby [facility]. It has not been cleared or approved by the Foodand Drug Administration.PATIENT WAS FASTINGPERFORMED BY: [facility] [address] [id number] BY: Digital Path6370 [facility] [id number] Protein [Mass/Vol] 7.0 g/dL Normal 6.0-8.5 [facility] Internal Medicine Work Phone: Comment on above: Test(s) 034153-FDI-Y ; 401953-JGJ-Y; 836639-Dhpvaaizekbgo; 542489-Yqozjqxhpso, Total; 003010-YIL-K (Total); 118009-Crppm LDL-P; 637965-SWA Size; 740057-GP-ZR Scorewas developed and its performance characteristics determinedby [facility]. It has not been cleared or approved by the Foodand Drug Administration.PATIENT WAS FASTINGPERFORMED BY: [employer] [id number] BY: Liquid RoboticsVirtua MarltonRlyxbk8581 [facility] [id number] Sodium [Moles/Vol] 139 mmol/L Normal 134-144 [facility] Internal Medicine Work Phone: Comment on above: Test(s) 000321-EYR-B ; 646944-UFW-J; 933166-Zvmxpqpgjiqvi; 936927-Hpblhrewgwb, Total; 840475-AEF-Y (Total); 374152-Xxduk LDL-P; 946896-KNJ Size; 602706-JS-QS Scorewas developed and its performance characteristics determinedby [facility]. It has not been cleared or approved by the Foodand Drug Administration.PATIENT WAS FASTINGPERFORMED BY: Meijob [address] [id number] BY: [employer]70 [facility] [id number] Urea nitrogen [Mass/Vol] 11 mg/dL Normal 6-20 [facility] Work Phone: Comment on above: Test(s) 661017-NTB-S ; 358680-TKA-D; 660054-Fbmrqepzuytfj; 237921-Apiqyshvvta, Total; 582731-YYH-I (Total); 687121-Lgbde LDL-P; 228014-CFR Size; 939329-SA-AO Scorewas developed and its performance characteristics determinedby [facility]. It has not been cleared or approved by the Foodand Drug Administration.PATIENT WAS FASTINGPERFORMED BY: Meijob [address] [id number] BY: [employer]70 [facility]Fox[facility] [id number] Urea nitrogen/Creatinine [Mass ratio] 20 mg/mg Normal 9-23 [facility] Work Phone: Comment on above: Test(s) 991341-BIR-S ; 875958-RPC-F; 120807-Cstutdpjvoqsk; 291651-Sjsoslcykei, Total; 431473-MUY-D (Total); 475391-Fzuze LDL-P; 082798-QNW Size; 540375-UX-QX Scorewas developed and its performance characteristics determinedby [facility]. It has not been cleared or approved by the Foodand Drug Administration.PATIENT WAS FASTINGPERFORMED BY: Meijob [address] [id number] BY: DreamHeart6370 [facility] [id number] NMR Profile (02633)Ordered B y: Preconstruction Manager on 02-15-2020 Cholesterol [Mass/Vol] 183 mg/dL Normal 100-199 [facility] Internal Medicine Work Phone: Comment on above: Test(s) 687417-YNB-H ; 785314-XQH-U; 532063-Hmvuyoneessuz; 931722-Hizbyjaopqm, Total; 161605-NQM-B (Total); 164488-Vptnj LDL-P; 701387-XSJ Size; 975638-WE-SB Scorewas developed and its performance characteristics determinedby [facility]. It has not been cleared or approved by the Foodand Drug Administration.PATIENT WAS FASTINGPERFORMED BY: [employer] [facility] [id number] BY: [employer]70 [facility] [id number] Lipoprotein.alpha [Moles/Vol] 39.8 umol/L Normal [facility] Internal Medicine Work Phone: Comment on above: Test(s) 013174-BZC-H ; 010610-QCP-Y; 632033-Dpevrtidnavzb; 972124-Xzgtwnyvdob, Total; 341636-GGM-X (Total); 174074-Zbntq LDL-P; 940200-RLG Size; 446511-MA-YN Scorewas developed and its performance characteristics determinedby [facility]. It has not been cleared or approved by the [employer] Drug Administration.PATIENT WAS FASTINGPERFORMED BY: [employer] [id number] BY: DreamHeart6370 [facility] [id number] Lipoprotein.beta.subpa rticle [Entitic length] 20.2 nm Abnormal [facility] Work Phone: Comment on above: INTERPRETATIVE INFORMATION PARTICLE CONCENTRATION AND SIZE <--Lower CVD Risk Higher CVD Risk--> LDL AND HDL PARTICLES Percentile in Reference Population HDL-P (total) High 75th 50th 25th Low >34.9 34.9 30.5 26.7 <26.7 . Small LDL-P Low 25th 50th 75th High <117 117 527 839 >839 . LDL Size <-Large (Pattern A)-> <-Small (Pattern B)-> 23.0 20.6 20.5 19.0 Small LDL-P and LDL Size are associated with CVD risk, but not afterLDL-P is taken into account. Test(s) 431373-SLJ-G ; 005185-PUQ-W; 760591-Bfflebqwhvnge; 484070-Zhhvkdhpcsk, Total; 743067-PQI-B (Total); 879451-Labry LDL-P; 316658-DWO Size; 589874-SO-YG Scorewas developed and its performance characteristics determinedby [facility]. It has not been cleared or approved by the Foodand Drug Administration.PATIENT WAS FASTINGPERFORMED BY: [employer] [id number] BY: [facility] Njzxex9012 [facility] [id number] Lipoprotein.beta.subpa rticle [Moles/Vol] 1569 nmol/L Abnormal [facility] Work Phone: Comment on above: Low < 1000 Moderate 1000 - 1299 Borderline-High 1300 - 1599 High 1600 - 2000 Very High > 2000 Test(s) 142851-JCC-G ; 822015-TUX-Y; 692414-Ruxjxirdxiksv; 908688-Horagblvexh, Total; 010077-LLU-S (Total); 710009-Cthys LDL-P; 807361-UQN Size; 310433-PI-JK Scorewas developed and its performance characteristics determinedby [facility]. It has not been cleared or approved by the Foodand Drug Administration.PATIENT WAS FASTINGPERFORMED BY: [employer] [id number] BY: Liquid RoboticsVirtua MarltonLbhyfs8584 [facility] [id number] Lipoprotein.beta.subpa rticle.small [Moles/Vol] 1031 nmol/L Abnormal [facility] Work Phone: Comment on above: Test(s) 888631-VTN-X ; 647082-KTS-S; 709275-Lptlxvzqagxbl; 445867-Ugiwhsxyrxk, Total; 987745-URY-X (Total); 964482-Ovzbv LDL-P; 564638-ZIR Size; 696986-KI-EU Scorewas developed and its performance characteristics determinedby [facility]. It has not been cleared or approved by the Foodand Drug Administration.PATIENT WAS FASTINGPERFORMED BY: Meijob [address] [id number] BY: DreamHeart6370 [facility] [id number] Triglyceride [Mass/Vol] 210 mg/dL Abnormal 0-149 [facility] Work Phone: Comment on above: Test(s) 156581-FZT-D ; 328959-GMX-E; 674547-Uipahcotovtmk; 570158-Nqbduyzzevu, Total; 949587-NON-T (Total); 330313-Reppk LDL-P; 152781-WUI Size; 253143-QO-JD Scorewas developed and its performance characteristics determinedby [facility]. It has not been cleared or approved by the Foodand Drug Administration.PATIENT WAS FASTINGPERFORMED BY: [employer] [id number] BY: Liquid RoboticsVirtua MarltonAaogpn6189 [facility] [id number] NMR Profile (47142) 46 mg/dL Normal [facility] Work Phone: Comment on above: Test(s) 687088-UXY-H ; 053946-PPV-P; 898234-Rxtnxfpmlxusb; 862527-Hzpzjhktizy, Total; 721397-KKH-V (Total); 152740-Tbzzc LDL-P; 228119-BIF Size; 208566-BC-UB Scorewas developed and its performance characteristics determinedby [facility]. It has not been cleared or approved by the Foodand Drug Administration.PATIENT WAS FASTINGPERFORMED BY: Meijob [address] [id number] BY: Digital [employer]6370 [facility] [id number] NMR Profile (10567) 101 mg/dL Abnormal 0-99 [facility] Work Phone: Comment on above: . Optimal < 100 Abov e optimal 100 - 129 Borderline 130 - 159 High 160 - 189 Very high > 189 . Test(s) 957802-KZL-S ; 745280-ETV-Z; 896670-Wcjvhzedgexrb; 108565-Kyxspnnxoiq, Total; 423386-XPZ-Y (Total); 431519-Ljyjj LDL-P; 579019-KMA Size; 183547-SP-UZ Scorewas developed and its performance characteristics determinedby [facility]. It has not been cleared or approved by the Foodand Drug Administration.PATIENT WAS FASTINGPERFORMED BY: Meijob [address] [id number] BY: DreamHeart6370 [facility] [id number] VITAMIN B-12 (CYANOCOBALAMIN ) (12713)Ordered By: Preconstruction Manager on 02-15-2020 Cobalamin (Vitamin B12) [Mass/Vol] 844 pg/mL Normal 232-1245 [facility] Work Phone: Comment on above: Test(s) 403296-IYZ-I ; 657084-ZHH-F; 193984-Blzupogbikjfu; 774899-Qlserxtkmgk, Total; 465666-HQV-Z (Total); 051932-Ynydz LDL-P; 343254-UOK Size; 771906-TT-PU Scorewas developed and its performance characteristics determinedby [facility]. It has not been cleared or approved by the Foodand Drug Administration.PATIENT WAS FASTINGPERFORMED BY: Meijob [address] [id number] BY: DreamHeart6370 [facility]FoxBlue [facility] [id number] VITAMIN B-12 (CYANOCOBALAMIN ) (31031)Ordered By: Preconstruction Manager on 07-23-2019 Cobalamin (Vitamin B12) [Mass/Vol] 1232 pg/mL Normal 232-1245 [facility] Internal Medicine Work Phone: Comment on above: PATIENT NOT FASTINGP ERFORMED BY: DreamHeart6370 [facility] [id number] GLUCOSE (36341)Ordered By: S ystem Retail District Manager on 02-19-2019 Glucose [Mass/Vol] 81 mg/dL Normal 65-99 [facility] Internal Medicine Work Phone: Comment on above: Test(s) 559338-HIC-R ; 421730-EVI-Q; 076470-SWE-X; 189956-Xpbbcnpufhotz; 702361-Xvugoqjkbfc, Total; 106181-OUF-M (Total);213825-Sckia LDL-P; 046079-ZPP Size; 210988-VW-FN Scorewas developed and its performance characteristics determinedby [facility]. It has not been cleared or approved by the Foodand Drug Administration.PATIENT WAS FASTINGPERFORMED BY: [employer] [id number] BY: [employer] Nmberq3806 [facility] [employer] Services HoldingsBlue [facility] Regional Hospital [id number] NMR Profile (74859)Ordered B y: Preconstruction Manager on 02-19-2019 Cholesterol [Mass/Vol] 186 mg/dL Normal 100-199 [facility] Internal Medicine Work Phone: Comment on above: Test(s) 451940-ERD-X ; 103558-SCE-L; 237987-JUR-P; 924847-Mdshsfzqpugin; 617563-Ztstgwrznjq, Total; 927289-POM-K (Total);458153-Fugls LDL-P; 398318-UGQ Size; 100019-DY-QL Scorewas developed and its performance characteristics determinedby [facility]. It has not been cleared or approved by the Foodand Drug Administration.PATIENT WAS FASTINGPERFORMED BY: [employer] Living Studioston1447 [facility] [id number] BY: Liquid RoboticsVirtua MarltonUataxl2058 [facility] [id number] Lipoprotein.alpha [Moles/Vol] 36.4 umol/L Normal [facility] Work Phone: Comment on above: Test(s) 413459-XGA-V ; 019049-QGS-P; 590395-QUL-X; 570952-Kwzmkdonbyyzh; 164828-Fsjazjqjukc, Total; 630522-FOS-K (Total);467013-Yztrb LDL-P; 149852-RWF Size; 019856-KG-SG Scorewas developed and its performance characteristics determinedby [facility]. It has not been cleared or approved by the Foodand Drug Administration.PATIENT WAS FASTINGPERFORMED BY: [facility] [address] [id number] BY: Liquid RoboticsVirtua MarltonLplonh9823 [facility] [id number] Lipoprotein.beta.subpa rticle [Entitic length] 20.4 nm Abnormal [facility] Work Phone: Comment on above: INTERPRETATIVE INFORMATION PARTICLE CONCENTRATION AND SIZE <--Lower CVD Risk Higher CVD Risk--> LDL AND HDL PARTICLES Percentile in Reference Population HDL-P (total) High 75th 50th 25th Low >34.9 34.9 30.5 26.7 <26.7 . Small LDL-P Low 25th 50th 75th High <117 117 527 839 >839 . LDL Size <-Large (Pattern A)-> <-Small (Pattern B)-> 23.0 20.6 20.5 19.0 Small LDL-P and LDL Size are associated with CVD risk, but not afterLDL-P is taken into account. Test(s) 173282-QWU-R ; 141237-SWX-C; 978012-GBO-N; 111625-Bbvabyblhsndj; 637442-Qcmvbwunjyw, Total; 818614-DNL-C (Total);434317-Iexhr LDL-P; 338187-BAE Size; 854228-BN-LV Scorewas developed and its performance characteristics determinedby [facility]. It has not been cleared or approved by the Foodand Drug Administration.PATIENT WAS FASTINGPERFORMED BY: [employer] [id number] BY: PitchBook DataBlue Ridge Regional Hospital [id number] Lipoprotein.beta.subpa rticle [Moles/Vol] 1381 nmol/L Abnormal [facility] Work Phone: Comment on above: Low < 1000 Moderate 1000 - 1299 Borderline-High 1300 - 1599 High 1600 - 2000 Very High > 2000 Test(s) 789170-HTJ-R ; 481561-XOJ-G; 773000-NZP-I; 351239-Yjbbrlxtapyqp; 248242-Piuucvnhknx, Total; 548589-AQD-Z (Total);691250-Gntzl LDL-P; 961527-ZDE Size; 600843-FA-NV Scorewas developed and its performance characteristics determinedby [facility]. It has not been cleared or approved by the [employer] Drug Administration.PATIENT WAS FASTINGPERFORMED BY: [employer] [id number] BY: [employer]70 DataFoxBlue [facility] [id number] Lipoprotein.beta.subpa rticle.small [Moles/Vol] 772 nmol/L Abnormal [facility] Work Phone: Comment on above: Test(s) 386010-SRX-E ; 115021-AKT-G; 960144-AMQ-A; 135532-Peatbxpifpgms; 571607-Gjrhenjhpfr, Total; 658453-AQM-J (Total);603373-Ryfws LDL-P; 693185-JMY Size; 480664-YB-PQ Scorewas developed and its performance characteristics determinedby [employer]. It has not been cleared or approved by the Foodand Drug Administration.PATIENT WAS FASTINGPERFORMED BY: Meijob [address] [id number] BY: Clifton Wjbzdb0689 [address] [facility] [id number] Triglyceride [Mass/Vol] 130 mg/dL Normal 0-149 [facility] Work Phone: Comment on above: Test(s) 526249-ILS-M ; 420317-NTG-P; 916878-EHA-B; 517858-Tdpzbhgorsxdr; 841428-Ckwztebohno, Total; 856556-RTX-Q (Total);177210-Olank LDL-P; 157372-MNB Size; 803878-PR-DS Scorewas developed and its performance characteristics determinedby [employer]. It has not been cleared or approved by the Foodand Drug Administration.PATIENT WAS FASTINGPERFORMED BY: Meijob [address] [id number] BY: [employer]70 DataFoxBlue [facility] [id number] NMR Profile (75926) 48 mg/dL Normal Compr [facility] Internal Medicine Work Phone: Comment on above: Test(s) 519922-UZE-U ; 952010-NOG-N; 999504-YYH-I; 648819-Ozsnrhnjortdl; 064095-Fqwucpkycjl, Total; 843037-MMF-Q (Total);273209-Mjert LDL-P; 921896-UKL Size; 597584-WH-CS Scorewas developed and its performance characteristics determinedby [employer]. It has not been cleared or approved by the Foodand Drug Administration.PATIENT WAS FASTINGPERFORMED BY: Meijob [address] [id number] BY: [employer] Fsrckh3637 [facility]XMission Hospital [id number] NMR Profile (67130) 112 mg/dL Abnormal 0-99 Compr [facility] Internal Medicine Work Phone: Comment on above: . Optimal < 100 Abov e optimal 100 - 129 Borderline 130 - 159 High 160 - 189 Very high > 189 .LDL-C is inaccurate if patient is non-fasting. Test(s) 682614-ZXJ-D ; 877491-YRK-D; 374534-MWC-P; 725412-Plvmwtlylhkia; 041529-Uphqhmogzlb, Total; 973687-CRV-A (Total);425865-Uafym LDL-P; 445388-CTN Size; 537108-AP-EW Scorewas developed and its performance characteristics determinedby [employer]. It has not been cleared or approved by the Foodand Drug Administration.PATIENT WAS FASTINGPERFORMED BY: CodeEval1447 [facility] [id number] BY: [employer] DataMonkeyFind [place] [id number] VITAMIN B-12 (CYANOCOBALAMIN ) (15810)Ordered By: Preconstruction Manager on 02-19-2019 Cobalamin (Vitamin B12) [Mass/Vol] 288 pg/mL Normal 232-1245 [facility] Work Phone: Comment on above: Test(s) 327221-NDK-S ; 418601-PYK-B; 104017-WSL-K; 582887-Golgemxbshiaj; 017425-Rlhwstnnbbb, Total; 714252-UJQ-Y (Total);841378-Qlzzj LDL-P; 203348-ZNG Size; 240966-LZ-LL Scorewas developed and its performance characteristics determinedby [employer]. It has not been cleared or approved by the Foodand Drug Administration.PATIENT WAS FASTINGPERFORMED BY: [employer] [id number] BY: YASA MotorsMiddlesboro ARH Hospital [id number] C-REACTIVE PROTEIN (99628)Or dered By: Preconstruction Manager on 08-01-2017 CRP [Mass/Vol] 6.4 mg/L Abnormal 0.0-4.9 [facility] Internal Medicine Work Phone: Comment on above: PATIENT WAS FASTINGP ERFORMED BY: LabCo Eurkol2718 Pguh RoadDublin [place] [id number] CBC (AUTO) (74687)Ordered By : Preconstruction Manager on 08-01-2017 Erythrocyte distribution width (RBC) [Ratio] 12.8 % Normal 12.3-15.4 [facility] Work Phone: Comment on above: PATIENT WAS FASTINGP ERFORMED BY: [facility] Kcsqzt3466 [address]ugh RoadDublin [place] [id number] Hematocrit (Bld) [Volume fraction] 41.8 % Normal 34.0-46.6 [facility] Work Phone: Comment on above: PATIENT WAS FASTINGP ERFORMED BY: LabMer[facility] Phygel4156 Pugh RoadDublin [place] [id number] Hemoglobin (Bld) [Mass/Vol] 14.2 g/dL Normal 11.1-15.9 [facility] Work Phone: Comment on above: PATIENT WAS FASTINGP ERFORMED BY: LabMer[facility] St. [facility] Zfhblz6629 [address] RoadDublin [place] [id number] MCH (RBC) [Entitic mass] 30.8 pg Normal 26.6-33.0 [facility] Work Phone: Comment on above: PATIENT WAS FASTINGP ERFORMED BY: LabMer[facility] St. [facility] Ikqxeo1836 [address] RoadDublin [place] [id number] MCHC (RBC) [Mass/Vol] 34.0 g/dL Normal 31.5-35.7 [facility] Internal Medicine Work Phone: Comment on above: PATIENT WAS FASTINGP ERFORMED BY: [facility] Vytqky9897 [address] RoadDublin [place] [id number] MCV (RBC) [Entitic vol] 91 fL Normal 79-97 [facility] Work Phone: Comment on above: PATIENT WAS FASTINGP ERFORMED BY: Lab[facility] Gcpcdq7596 [address] RoadDublin [place] [id number] Platelets (Bld) [#/Vol] 304 {x10E3/uL} Normal 150-379 [facility] Work Phone: Comment on above: PATIENT WAS FASTINGP ERFORMED BY: CB [facility] Hswtvf9125 [address] RoadDublin [place] [id number] Platelets (Bld) [#/Vol] 304 10*3/uL Normal 150-379 [facility]; [facility] Work Phone: Comment on above: PATIENT WAS FASTINGP ERFORMED BY: CB [facility] Elmvyd3065 [address] RoadDublin [place] [id number] RBC (Bld) [#/Vol] 4.61 {x10E6/uL} Normal 3.77-5.28 [facility] Internal Medicine Work Phone: Comment on above: PATIENT WAS FASTINGP ERFORMED BY: CB [facility] Cihhae1815 [address] RoadDublin [place] [id number] RBC (Bld) [#/Vol] 4.61 10*6/uL Normal 3.77-5.28 [facility]; [facility] Internal Medicine Work Phone: Comment on above: PATIENT WAS FASTINGP ERFORMED BY: CB [facility] Hnxcas0082 [address] RoadDublin [place] [id number] WBC (Bld) [#/Vol] 10.0 {x10E3/uL} Normal 3.4-10.8 [facility] Internal Medicine Work Phone: Comment on above: PATIENT WAS FASTINGP ERFORMED BY: CB [facility] Gblkma8269 [address] RoadDublin [place] [id number] WBC (Bld) [#/Vol] 10.0 10*3/uL Normal 3.4-10.8 [facility]; [facility] Internal Medicine Work Phone: Comment on above: PATIENT WAS FASTINGP ERFORMED BY: CB [facility] Kpzvrb8927 [address] RoadDublin [place] [id number] METABOLIC PANEL, COMPREHENSI VE (75494)Ordered By: Preconstruction Manager on 08-01-2017 Albumin [Mass/Vol] 4.3 g/dL Normal 3.5-5.5 [facility] Internal Medicine Work Phone: Comment on above: PATIENT WAS FASTINGP ERFORMED BY: MADISON [facility] Ahhmyl9137 P[address] RoadDublin [place] [id number] Albumin/Globulin [Mass ratio] 1.6 {ratio} Normal 1.2-2.2 [facility] Work Phone: Comment on above: PATIENT WAS FASTINGP ERFORMED BY: MADISON [facility] Xglgwf9566 [address] RoadDublin [place] [id number] ALP [Catalytic activity/Vol] 90 [iU]/L Normal 39-117 [facility] Work Phone: Comment on above: PATIENT WAS FASTINGP ERFORMED BY: MADISON [facility] Wqoozn5005 [address] RoadDublin [place] [id number] ALP [Catalytic activity/Vol] 90 U/L Normal 39-117 [facility]; [facility] Work Phone: Comment on above: PATIENT WAS FASTINGP ERFORMED BY: MADISON [facility] Ahjynp6080 [address] RoadDublin [place] [id number] ALT [Catalytic activity/Vol] 23 [iU]/L Normal 0-32 [facility] Work Phone: Comment on above: PATIENT WAS FASTINGP ERFORMED BY: MADISON [facility] Kogghe5239 [address] RoadDublin [place] [id number] ALT [Catalytic activity/Vol] 23 U/L Normal 0-32 [facility]; [facility] Work Phone: Comment on above: PATIENT WAS FASTINGP ERFORMED BY: [facility] Cbukds0982 [address] RoadDublin [place] [id number] AST [Catalytic activity/Vol] 17 [iU]/L Normal 0-40 [facility] Work Phone: Comment on above: PATIENT WAS FASTINGP ERFORMED BY: CB [facility] Esycht0007 [address] RoadDublin [place] [id number] AST [Catalytic activity/Vol] 17 U/L Normal 0-40 [facility]; [facility] Work Phone: Comment on above: PATIENT WAS FASTINGP ERFORMED BY: CB [facility] Trsdoz2433 [address] RoadDublin [place] [id number] Bilirubin [Mass/Vol] 0.5 mg/dL Normal 0.0-1.2 [facility] Work Phone: Comment on above: PATIENT WAS FASTINGP ERFORMED BY: [facility] Irltnf3987 [address] RoadDublin [place] [id number] Calcium [Mass/Vol] 9.7 mg/dL Normal 8.7-10.2 [facility] Internal Medicine Work Phone: Comment on above: PATIENT WAS FASTINGP ERFORMED BY: [facility] Nnfhbo9868 [address] RoadDublin [place] [id number] Chloride [Moles/Vol] 98 mmol/L Normal 96-106 [facility] Work Phone: Comment on above: PATIENT WAS FASTINGP ERFORMED BY: [facility] Wdyhmu5562 [address] RoadDublin [place] [id number] CO2 [Moles/Vol] 26 mmol/L Normal 18-[address] [facility] Internal Medicine Work Phone: Comment on above: PATIENT WAS FASTINGP ERFORMED BY: [facility] Mrrfsc0880 [address] RoadDublin [place] [id number] Creatinine [Mass/Vol] 0.58 mg/dL Normal 0.57-1.00 [facility] Internal Medicine Work Phone: Comment on above: PATIENT WAS FASTINGP ERFORMED BY: LabMer[facility] St[facility] Duwxkd4166 Pugh RoadDublin [place] [id number] GFR/1.73 sq M predicted among blacks CKD-EPI (S/P/Bld) [Vol rate/Area] 148 mL/min/1.73 Normal [facility] Work Phone: Comment on above: PATIENT WAS FASTINGP ERFORMED BY: [facility] Ruaqqv0447 [address] RoadDublin [place] [id number] GFR/1.73 sq M predicted among non-blacks CKD-EPI (S/P/Bld) [Vol rate/Area] 129 mL/min/1.73 Normal [facility] Work Phone: Comment on above: PATIENT WAS FASTINGP ERFORMED BY: MADISON LabColina Bwucwt6585 [address] RoadDublin [place] [id number] Globulin (S) [Mass/Vol] 2.7 g/dL Normal 1.5-4.5 [facility] Internal Medicine Work Phone: Comment on above: PATIENT WAS FASTINGP ERFORMED BY: MADISON [facility] Oywnrc1138 [address] RoadDublin [place] [id number] Glucose [Mass/Vol] 79 mg/dL Normal 65-99 [facility] Internal Medicine Work Phone: Comment on above: PATIENT WAS FASTINGP ERFORMED BY: MADISON [facility] Ykqnwu2035 [address] RoadDublin [place] [id number] Potassium [Moles/Vol] 4.3 mmol/L Normal 3.5-5.2 [facility] Internal Medicine Work Phone: Comment on above: PATIENT WAS FASTINGP ERFORMED BY: MADISON LabKylee VelezUnlttp5629 [address] RoadDublin [place] [id number] Protein [Mass/Vol] 7.0 g/dL Normal 6.0-8.5 [facility] Internal Medicine Work Phone: Comment on above: PATIENT WAS FASTINGP ERFORMED BY: MADISON LabKylee VelezUmnhoy1190 [address] RoadDublin [place] [id number] Sodium [Moles/Vol] 141 mmol/L Normal 134-144 [facility] Internal Medicine Work Phone: Comment on above: PATIENT WAS FASTINGP ERFORMED BY: MADISON LabColina VelezGnsaxg7996 [address] RoadDublin [place] [id number] Urea nitrogen [Mass/Vol] 9 mg/dL Normal 6-20 [facility] Internal Medicine Work Phone: Comment on above: PATIENT WAS FASTINGP ERFORMED BY: MADISON [facility] Wvmdsi8124 [address] RoadDublin [place] [id number] Urea nitrogen/Creatinine [Mass ratio] 16 mg/mg Normal 9-23 [facility] Internal Medicine Work Phone: Comment on above: PATIENT WAS FASTINGP ERFORMED BY: MADISON LabColina Lcelak6235 [address] RoadDublin [place] [id number] SED RATE ERYTHROCYTE (59621) Ordered By: Preconstruction Manager on 08-01-2017 ESR (Bld) [Velocity] 9 mm/h Normal 0-32 Comp rehensive Internal Medicine Work Phone: Comment on above: PATIENT WAS FASTINGP ERFORMED BY: Kaptur [facility] Ozqlxq9952 P[address] RoadDublin [place] [id number] TSH (74626)Ordered By: Teresae m Retail District Manager on 08-01-2017 TSH Qn 2.700 {uIU/mL} Normal 0.450-4.500 [facility]hdo[facility] Work Phone: Comment on above: PATIENT WAS FASTINGP ERFORMED BY: Kaptur [facility] Zsgfvy5474 [address] RoadDublin [place] [id number] VITAMIN B-12 (CYANOCOBALAMIN ) (30165)Ordered By: Preconstruction Manager on 08-01-2017 Cobalamin (Vitamin B12) [Mass/Vol] 511 pg/mL Normal 232-1245 [facility] Work Phone: Comment on above: PATIENT WAS FASTINGP ERFORMED BY: Kaptur [facility] Wbchwu2526 [address] RoadDublin [place] [id number] [place] CULTURE-OTHER (07866)Ord ered By: Preconstruction Manager on 09-06-2015 Bacteria identified Respiratory culture Nom (Unsp spec) RRF Normal [facility] Work Phone: Comment on above: Routine respiratory mariely PATIENT NOT FASTINGP ERFORMED BY: CB [facility] Jlzkuk0767 [address] RoadDublin [place] [id number] Information: SRC:THRT L51182 Bacteria identified Respiratory culture Nom (Unsp spec) Final report Normal [facility] Work Phone: Comment on above: PATIENT NOT FASTINGP ERFORMED BY: CB [facility] Yrldma2495 [address] RoadDublin [place] [id number] Information: SRC:THRVane K43540 Rapid Strep Test, Office (89 715)Ordered By: Amber Astorga on 09-06-2015 S. pyogenes Ag EIA Ql (Throat) Negative Normal [facility]; [facility] Work Phone: S. pyogenes Ag IA Ql (Unsp spec) Negative Normal [facility] Work Phone: VIRAL CULTURE (94676)Ordered By: Preconstruction Manager on 09-06-2015 Virus identified Cx Nom (Unsp spec) No virus isolated. Normal [facility] Work Phone: Comment on above: PATIENT NOT FASTINGP ERFORMED BY: LabCoJFK Johnson Rehabilitation InstituteRwaxgoccfy2682 [facility] [id number] Information: H35578 THROAT [id number] Blood Glucose , Office (9191 2)Ordered By: Amber Astorga on 08-22-2015 Glucose Glucometer (BldC) [Moles/Vol] 106 1 Normal [facility] Work Phone: BR[place]ORD CULTURE-OTHER (10705)Ord ered By: Preconstruction Manager on 08-15-2015 Bacteria identified Respiratory culture Nom (Unsp spec) Final report Abnormal [facility] Work Phone: Comment on above: PATIENT NOT FASTINGP ERFORMED BY: LabCLK Design AutomationIyplwo9848 [facility] [id number] Information: SRC:THRVane G53621 Bacteria identified Respiratory culture Nom (Unsp spec) BETAGB Abnormal [facility] Work Phone: Comment on above: Beta hemolytic Strep tococcus, group BModerate growthPenicillin and ampicillin are drugs of choice for treatment ofbeta-hemolytic streptococcal infections. Susceptibility testing ofpenicillins and other beta-lactam agents approved by the FDA fortreatment of beta-hemolytic streptococcal infections need not beperformed routinely because nonsusceptible isolates are extremelyrare in any beta-hemolytic streptococcus and have not been reportedfor Streptococcus pyogenes (group A). (CLSI 2010) PATIENT NOT FASTINGP ERFORMED BY: [employer] Qxvyry1928 [facility] [id number] Information: SRC:THRT P78725 Rapid Strep Test, Office (87 121)Ordered By: Amber Astorga on 08-15-2015 S. pyogenes Ag EIA Ql (Throat) Negative Normal [facility]; [facility] Work Phone: S. pyogenes Ag IA Ql (Unsp spec) Negative Normal [facility] Work Phone: CBC, Platelets & Auto Diff ( 05481)Ordered By: Preconstruction Manager on 06-22-2014 Basophils (Bld) [#/Vol] 0.0 {x10E3/uL} Normal 0.0-0.2 [facility] Work Phone: Comment on above: PATIENT NOT FASTINGP ERFORMED BY: LabRyan [place] 1904370 [facility] [id number] Information: 193601,T19088 Basophils (Bld) [#/Vol] 0.0 10*3/uL Normal 0.0-0.2 [facility]; [facility] Work Phone: Comment on above: PATIENT NOT FASTINGP ERFORMED BY: LabMymich[facility] Gladwin6370 [facility] [id number] Information: 203705,V58504 Basophils/100 WBC (Bld) 0 % Normal [facility] Work Phone: Comment on above: PATIENT NOT FASTINGP ERFORMED BY: LabRyan [place] 1904370 [facility] [id number] Information: 550578,U23909 Eosinophils (Bld) [#/Vol] 0.1 {x10E3/uL} Normal 0.0-0.4 [facility] Work Phone: Comment on above: PATIENT NOT FASTINGP ERFORMED BY: LabCoTom Ville 3190170 [facility] [id number] Information: 938077,X83003 Eosinophils (Bld) [#/Vol] 0.1 10*3/uL Normal 0.0-0.4 [facility]; [facility] Work Phone: Comment on above: PATIENT NOT FASTINGP ERFORMED BY: LabMymich[facility] Gladwin6370 [facility] [id number] Information: 096232,X14527 Eosinophils/100 WBC (Bld) 1 % Normal [facility] Work Phone: Comment on above: PATIENT NOT FASTINGP ERFORMED BY: [place] 2409970 [facility] [id number] Information: 050026,C65303 Erythrocyte distribution width (RBC) [Ratio] 12.1 % Abnormal 12.3-15.4 [facility] Work Phone: Comment on above: PATIENT NOT FASTINGP ERFORMED BY: [address] [id number] Information: 576603,B31332 Hematocrit (Bld) [Volume fraction] 41.1 % Normal 34.0-46.6 [facility] Work Phone: Comment on above: PATIENT NOT FASTINGP ERFORMED BY: [address] [id number] Information: [id number] Hemoglobin (Bld) [Mass/Vol] 13.9 g/dL Normal 11.1-15.9 [facility] Work Phone: Comment on above: PATIENT NOT FASTINGP ERFORMED BY: [address] [id number] Information: [id number] Immature granulocytes (Bld) [#/Vol] 0.0 {x10E3/uL} Normal 0.0-0.1 [facility] Work Phone: Comment on above: PATIENT NOT FASTINGP ERFORMED BY: [address] [id number] Information: 804532,A99005 Immature granulocytes (Bld) [#/Vol] 0.0 10*3/uL Normal 0.0-0.1 [facility]; [facility] Work Phone: Comment on above: PATIENT NOT FASTINGP ERFORMED BY: [place] 2409970 [facility] [id number] Information: [id number] Immature granulocytes/100 WBC (Bld) 0 % Normal [facility] Work Phone: Comment on above: PATIENT NOT FASTINGP ERFORMED BY: MADISON Angel Owwbmd7854 [facility] [id number] Information: 631723,O77359 Lymphocytes (Bld) [#/Vol] 2.4 {x10E3/uL} Normal 0.7-3.1 [facility] Work Phone: Comment on above: PATIENT NOT FASTINGP ERFORMED BY: MADISON VillalobosMercy Hospital St[facility] Jxbhkt7674 [facility] [id number] Information: 408517,Q92564 Lymphocytes (Bld) [#/Vol] 2.4 10*3/uL Normal 0.7-3.1 [facility]; [facility] Work Phone: Comment on above: PATIENT NOT FASTINGP ERFORMED BY: MADISON Angel Yipbwg4750 [facility] [id number] Information: 842237,L06628 Lymphocytes/100 WBC (Bld) 29 % Normal [facility] Work Phone: Comment on above: PATIENT NOT FASTINGP ERFORMED BY: MADISON VillalobosMercy Hospital St[facility] Louis Bwkcfi0771 [facility] [id number] Information: 539866,J58094 MCH (RBC) [Entitic mass] 30.2 pg Normal 26.6-33.0 [facility] Work Phone: Comment on above: PATIENT NOT FASTINGP ERFORMED BY: LabRyan Ville 1904370 [facility] [id number] Information: 392959,C04376 MCHC (RBC) [Mass/Vol] 33.8 g/dL Normal 31.5-35.7 [facility] Internal Medicine Work Phone: Comment on above: PATIENT NOT FASTINGP ERFORMED BY: MADISON VillalobosMymichigan Medical Center Gladwin6370 [facility] [id number] Information: 047985,G46636 MCV (RBC) [Entitic vol] 89 fL Normal 79-97 [facility] Work Phone: Comment on above: PATIENT NOT FASTINGP ERFORMED BY: MADISON LabColina MayaSmduku72[address] [facility] [id number] Information: 985851,I70249 Monocytes (Bld) [#/Vol] 0.6 {x10E3/uL} Normal 0.1-0.9 [facility] Work Phone: Comment on above: PATIENT NOT FASTINGP ERFORMED BY: CB LabCo Qiauxl6209 [address] [facility] [id number] Information: 059625,[id number] Monocytes (Bld) [#/Vol] 0.6 10*3/uL Normal 0.1-0.9 [facility]; [facility] Work Phone: Comment on above: PATIENT NOT FASTINGP ERFORMED BY: MADISON LabCo Euhkvc3179 [facility] [id number] Information: 809262,R46822 Monocytes/100 WBC (Bld) 8 % Normal [facility] Work Phone: Comment on above: PATIENT NOT FASTINGP ERFORMED BY: CB [facility] Ehsepq2305 [facility] [id number] Information: 951544,G16533 Neutrophils (Bld) [#/Vol] 5.1 {x10E3/uL} Normal 1.4-7.0 [facility] Work Phone: Comment on above: PATIENT NOT FASTINGP ERFORMED BY: CB [facility] Uqacti3199 [facility] [id number] Information: 472590,Y13045 Neutrophils (Bld) [#/Vol] 5.1 10*3/uL Normal 1.4-7.0 [facility]; [facility] Work Phone: Comment on above: PATIENT NOT FASTINGP ERFORMED BY: CB [facility] Rgfldk7571 [facility]ughCenter[facility] [id number] Information: 986731,Y29406 Neutrophils/100 WBC (Bld) 62 % Normal [facility] Work Phone: Comment on above: PATIENT NOT FASTINGP ERFORMED BY: MADISON LabColina MayaJhavrb8380 Pugh RoadMilindblin [place] [id number] Information: 829400,X55759 Platelets (Bld) [#/Vol] 399 {x10E3/uL} Abnormal 150-379 [facility] Work Phone: Comment on above: PATIENT NOT FASTINGP ERFORMED BY: CB [facility] Majkkf1925 P[address] RoadUnc Health Waynein [place] [id number] Information: 360478,[id number] Platelets (Bld) [#/Vol] 399 10*3/uL Abnormal 150-379 [facility]; [facility] Work Phone: Comment on above: PATIENT NOT FASTINGP ERFORMED BY: MADISON [facility] Qendkl9753 P[address] RoadUnc Health Waynein [place] [id number] Information: 943909,Y08240 RBC (Bld) [#/Vol] 4.60 {x10E6/uL} Normal 3.77-5.28 [facility] Internal Medicine Work Phone: Comment on above: PATIENT NOT FASTINGP ERFORMED BY: MADISON Maya[address] [facility] [place] [id number] Information: 573877,[id number] RBC (Bld) [#/Vol] 4.60 10*6/uL Normal 3.77-5.28 [facility]; [facility] Work Phone: Comment on above: PATIENT NOT FASTINGP ERFORMED BY: CB [facility] Zcvqzt5117 [address] [facility] [place] [id number] Information: 931610,R60565 WBC (Bld) [#/Vol] 8.3 {x10E3/uL} Normal 3.4-10.8 [facility] Internal Medicine Work Phone: Comment on above: PATIENT NOT FASTINGP ERFORMED BY: CB [facility] Dgkhyq6825 P[address] RoadUnc Health Waynein [place] [id number] Information: 278707,I24975 WBC (Bld) [#/Vol] 8.3 10*3/uL Normal 3.4-10.8 [facility] Internal Medicine; [facility] Work Phone: Comment on above: PATIENT NOT FASTINGP ERFORMED BY: MADISON Maya6370 [address] RoadDublin [place] [id number] Information: 714710,Q24088 Metabolic Panel, Comprehensi ve (82429)Ordered By: Preconstruction Manager on 06-22-2014 Albumin [Mass/Vol] 3.6 g/dL Normal 3.5-5.5 [facility] Internal Medicine Work Phone: Comment on above: PATIENT NOT FASTINGP ERFORMED BY: MADISON LabKylee VelezJwhrhf1187 P[address] RoadUnc Health Waynein [place] [id number] Albumin/Globulin [Mass ratio] 1.2 {ratio} Normal 1.1-2.5 [facility] Work Phone: Comment on above: PATIENT NOT FASTINGP ERFORMED BY: MADISON LabMarvin Snyffr[address] [facility]in [place] [id number] ALP [Catalytic activity/Vol] 66 [iU]/L Normal 39-117 [facility] Work Phone: Comment on above: PATIENT NOT FASTINGP ERFORMED BY: MADISON LabKylee VelezKeydtn3101 Pugh RoadDublin [place] [id number] ALP [Catalytic activity/Vol] 66 U/L Normal 39-117 [facility]; [facility] Work Phone: Comment on above: PATIENT NOT FASTINGP ERFORMED BY: MADISON [facility] Jorxqq2703 [address] [facility] [place] [id number] ALT [Catalytic activity/Vol] 33 [iU]/L Abnormal 0-32 [facility] Work Phone: Comment on above: PATIENT NOT FASTINGP ERFORMED BY: MADISON [facility] Gsjssi[address] [facility] HospitalDublin [place] [id number] ALT [Catalytic activity/Vol] 33 U/L Abnormal 0-32 [facility]; [facility] Work Phone: Comment on above: PATIENT NOT FASTINGP ERFORMED BY: MADISON [facility] Zhmofk6952 Pugh RoadDublin [place] [id number] AST [Catalytic activity/Vol] 20 [iU]/L Normal 0-40 [facility] Work Phone: Comment on above: PATIENT NOT FASTINGP ERFORMED BY: CB [facility] Tzvdgg6402 [address] RoadDublin [place] [id number] AST [Catalytic activity/Vol] 20 U/L Normal 0-40 [facility]; [facility] Work Phone: Comment on above: PATIENT NOT FASTINGP ERFORMED BY: CB [facility] Coogkz8956 Pugh RoadDublin [place] [id number] Bilirubin [Mass/Vol] 0.5 mg/dL Normal 0.0-1.2 Comp rehensive Internal Medicine Work Phone: Comment on above: PATIENT NOT FASTINGP ERFORMED BY: MADISON [facility] Spoqun6090 Pugh RoadDublin [place] [id number] Calcium [Mass/Vol] 8.7 mg/dL Normal 8.7-10.2 [facility] Internal [facility] Work Phone: Comment on above: Please note refere nce interval change PATIENT NOT FASTINGP ERFORMED BY: MADISON [facility] Rjtdfb5238 [address] RoadDublin [place] [id number] Chloride [Moles/Vol] 102 mmol/L Normal 97-108 [facility] Work Phone: Comment on above: PATIENT NOT FASTINGP ERFORMED BY: CB [facility] Jxoatn5619 [address] RoadDublin [place] [id number] CO2 [Moles/Vol] 21 mmol/L Normal 18-29 Comprehen [facility] Internal Medicine Work Phone: Comment on above: PATIENT NOT FASTINGP ERFORMED BY: CB [facility] Opugfx4838 [address] RoadDublin [place] [id number] Creatinine [Mass/Vol] 0.59 mg/dL Normal 0.57-1.00 [facility] Work Phone: Comment on above: PATIENT NOT FASTINGP ERFORMED BY: CB [facility] Usneoz0023 [address] RoadDublin [place] [id number] GFR/1.73 sq M predicted among blacks CKD-EPI (S/P/Bld) [Vol rate/Area] 150 mL/min/1.73 Normal [facility] Work Phone: Comment on above: PATIENT NOT FASTINGP ERFORMED BY: CB [facility] Phvlmw1458 [address] RoadDublin [place] [id number] GFR/1.73 sq M predicted among non-blacks CKD-EPI (S/P/Bld) [Vol rate/Area] 131 mL/min/1.73 Normal [facility] Work Phone: Comment on above: PATIENT NOT FASTINGP ERFORMED BY: CB [facility] Gtayxd7769 [address] RoadDublin [place] [id number] Globulin (S) [Mass/Vol] 3.0 g/dL Normal 1.5-4.5 [facility] Internal Medicine Work Phone: Comment on above: PATIENT NOT FASTINGP ERFORMED BY: LabCo Tumthd3360 [address] RoadDublin [place] [id number] Glucose [Mass/Vol] 80 mg/dL Normal 65-99 [facility] Internal Medicine Work Phone: Comment on above: PATIENT NOT FASTINGP ERFORMED BY: [facility] Azaqpy6662 [address] RoadDublin [place] [id number] Potassium [Moles/Vol] 4.5 mmol/L Normal 3.5-5.2 [facility] prehensive Internal Medicine Work Phone: Comment on above: PATIENT NOT FASTINGP ERFORMED BY: CB [facility] Ftaveq0033 [address] RoadDublin [place] [id number] Protein [Mass/Vol] 6.6 g/dL Normal 6.0-8.5 [facility] Internal Medicine Work Phone: Comment on above: PATIENT NOT FASTINGP ERFORMED BY: CB [facility] Gnirsr5896 [address] RoadDublin [place] [id number] Sodium [Moles/Vol] 139 mmol/L Normal 134-144 [facility] Internal Medicine Work Phone: Comment on above: PATIENT NOT FASTINGP ERFORMED BY: CB Liquid Roboticsrp Jhaoso[address] [employer] Consult[employer] Services HoldingsBlue Ridge Regional Hospital [id number] Urea nitrogen [Mass/Vol] 5 mg/dL Abnormal -20 [facility] Work Phone: Comment on above: PATIENT NOT FASTINGP ERFORMED BY: CB LabProxiblerp Ummmib3[address] PraXcellMiddlesboro AR[facility] Hospital [id number] Urea nitrogen/Creatinine [Mass ratio] 8 mg/mg Normal 8-20 [facility] Work Phone: Comment on above: PATIENT NOT FASTINGP ERFORMED BY: Kaptur LabProxiblerp Owgijn5046 DataFoxBlue Ridge Regional Hospital [id number] Urinalysis, Office ([id number])Or dered By: Amber Astorga on 06-22-2014 Bilirubin Ql (U) Small Normal Comprehe nsive Internal Medicine Work Phone: Glucose Test strip (U) [Mass/Vol] Negative Normal [facility] Work Phone: Glucose Test strip (U) [Mass/Vol] Negative Normal [facility]; [facility] Work Phone: Hemoglobin Ql (U) Non Hemolyzed Moderate Normal [facility] Work Phone: Ketones Ql (U) Small Normal Comprehens jesus manuel Internal Medicine Work Phone: Leukocyte esterase Test strip Ql (U) Small Normal [facility] Work Phone: Nitrite Ql (U) Negative Normal Comprehens jesus manuel [facility] Medicine Work Phone: Nitrite Ql (U) Negative Normal Comprehens jesus manuel [facility]; [facility] Work Phone: pH (U) 6.0 [pH] Normal [facility] Work Phone: Protein Ql (U) Trace Normal Comprehens jesus manuel [facility] Work Phone: Specific gravity (U) [Rel density] 1.030 1 Abnormal [facility] Work Phone: Urobilinogen (24H U) [Mass/Time] Normal Normal [facility] Work Phone: Urine Test, Office ([id number])Ordered By: Amber Astorga on 06-22-2014 Beta HCG ( test) Ql (U) Negative Normal [facility] Work Phone: Beta HCG ( test) Ql (U) Negative Normal [facility]; [facility] Work Phone: Rapid Flu (63328 x 2)on FLUAV Ag IA Ql (Throat) Positive Abnormal [facility] Work Phone: FLUAV Ag IA Ql (Throat) Positive Abnormal [facility]; [facility] Work Phone: URINE BRADFORD CULTURE-EFRAIN COL C OUNT (95149)Ordered By: Preconstruction Manager on 05-03-2014 Bacteria identified Cx Nom (U) Final report Abnormal [facility] Work Phone: Comment on above: PATIENT NOT FASTINGP ERFORMED BY: MADISON Liquid Roboticslina Biometric SecurityMiddlesboro ARH Hospital [id number] Information: SRC:UR J19887 Bacteria identified Cx Nom (U) Escherichia coli Abnormal [facility] Work Phone: Comment on above: Greater than 100,000 colony forming units per mL PATIENT NOT FASTINGP ERFORMED BY: MADISON Liquid Roboticslina UniqueduBlue Ridge Regional Hospital [id number] Information: SRC:UR Q68690 Other Antibiotic [Susc] MIHEAD Normal [facility] Work Phone: Comment on above: S = Susceptibl e; I = Intermediate; R = Resistant P = Positive; N = Negative MICS are expressed in micrograms per mL Antibiotic RSLT#1 RSLT#2 RSLT#3 RSLT#4Amoxicillin/Clavulanic Acid SAmpicillin SCefepime SCeftriaxone SCefuroxime SCephalothin SCiprofloxacin SErtapenem SGentamicin SImipenem SLevofloxacin SNitrofurantoin SPiperacillin STetracycline STobramycin STrimethoprim/Sulfa S PATIENT NOT FASTINGP ERFORMED BY: MADISON Bohemian GuitarsBlue Ridge Regional Hospital [id number] Information: SRC:UR E86357 Urinalysis, Office (51629)Or dered By: Amber Astorga on 05-03-2014 Bilirubin Ql (U) Negative Normal Comprehe nsive Internal Medicine Work Phone: Bilirubin Ql (U) Negative Normal Comprehe nsive [facility]; [facility] Work Phone: Glucose Test strip (U) [Mass/Vol] Negative Normal [facility] Work Phone: Glucose Test strip (U) [Mass/Vol] Negative Normal [facility]; [facility] Work Phone: Hemoglobin Ql (U) Non Hemolyzed Moderate Normal [facility] Work Phone: Ketones Ql (U) Negative Normal Comprehens jesus manuel [facility] Medicine Work Phone: Ketones Ql (U) Negative Normal Comprehens jesus manuel [facility]; [facility] Work Phone: Leukocyte esterase Test strip Ql (U) Large Normal [facility] Work Phone: Nitrite Ql (U) Negative Normal Comprehens jesus manuel [facility] Work Phone: Nitrite Ql (U) Negative Normal Comprehens jesus manuel [facility]; [facility] Work Phone: pH (U) 6.0 [pH] Normal [facility] Work Phone: Protein Ql (U) Negative Normal Comprehens jesus manuel [facility] Work Phone: Protein Ql (U) Negative Normal Comprehens jesus manuel [facility]; [facility] Work Phone: Specific gravity (U) [Rel density] 1.025 1 Normal [facility] Work Phone: Urobilinogen (24H U) [Mass/Time] Normal Normal [facility] Work Phone: Rapid Strep Test, Office ([phone])on 01-25-2014 S. pyogenes Ag EIA Ql (Throat) Positive Normal [facility]; [facility] Work Phone: S. pyogenes Ag IA Ql (Unsp spec) Positive Normal [facility] Work Phone: Urinalysis, Office (24771)on 01-25-2014 Bilirubin Ql (U) Small Normal Comprehe nsive Internal Medicine Work Phone: Glucose Test strip (U) [Mass/Vol] Negative Normal [facility] Work Phone: Glucose Test strip (U) [Mass/Vol] Negative Normal [facility]; [facility] Work Phone: Hemoglobin Ql (U) Negative Normal Compreh ensive [facility] Medicine Work Phone: Hemoglobin Ql (U) Negative Normal Compreh ensive [facility]; [facility] Work Phone: Ketones Ql (U) Negative Normal Comprehens jesus manuel [facility] Work Phone: Ketones Ql (U) Negative Normal Comprehens jesus manuel [facility]; [facility] Work Phone: Leukocyte esterase Test strip Ql (U) Trace Normal [facility] Work Phone: Nitrite Ql (U) Negative Normal Comprehens jesus manuel [facility] Work Phone: Nitrite Ql (U) Negative Normal Comprehens jesus manuel [facility]; [facility] Work Phone: pH (U) 6.0 [pH] Normal [facility] Work Phone: Protein Ql (U) Negative Normal Comprehens jesus manuel [facility] Work Phone: Protein Ql (U) Negative Normal Comprehens jesus manuel [facility]; [facility] Work Phone: Specific gravity (U) [Rel density] 1.030 1 Abnormal [facility] Work Phone: Urobilinogen (24H U) [Mass/Time] Normal Normal [facility] Work Phone: MONOSPOT TEST ([id number])Ordered By: Preconstruction Manager on 03-09-2013 Heterophile Ab LA Ql (S) Positive Abnormal [facility] Work Phone: Comment on above: The sensitivity of H eterophile antibody testing is 80-90%.Tomi Sanchez IgM testing offers higher sensitivity. PATIENT NOT FASTINGP ERFORMED BY: [facility]6370 [facility] [id number] Information: [id number] Heterophile Ab LA Ql (S) Positive Abnormal [facility]; [facility] Work Phone: Comment on above: The sensitivity of H eterophile antibody testing is 80-90%.Tomi Sanchez IgM testing offers higher sensitivity. PATIENT NOT FASTINGP ERFORMED BY: [place] 2409970 [facility] [id number] Information: [id number] Influenza A&B Viral Culture (88610)Ordered By: Preconstruction Manager on 02-25-2013 FLUV identified Org specific cx Nom (Unsp spec) FLUABN Normal [facility] Work Phone: Comment on above: Negative:No Influenz a A or B detected. PATIENT NOT FASTINGP ERFORMED BY: [place] 2409970 [facility] [id number] Information: SRC:NOS Y73215 Rapid Flu (86532 x 2)Ordered By: Baylee Davis on 02-25-2013 FLUAV Ag IA Ql (Throat) Negative Normal [facility] Work Phone: FLUAV Ag IA Ql (Throat) Negative Normal [facility]; [facility] Work Phone: Rapid Strep Test, Office ([phone])Ordered By: Baylee Davis on 02-25-2013 S. pyogenes Ag EIA Ql (Throat) Negative Normal [facility]; [facility] Work Phone: S. pyogenes Ag IA Ql (Unsp spec) Negative Normal [facility] Work Phone: Throat Culture (91759)Ordere d By: Preconstruction Manager on 02-25-2013 Bacteria identified Respiratory culture Nom (Unsp spec) BETAGG Normal [facility] Work Phone: Comment on above: Beta hemolytic Strep tococcus, group GHeavy growthPenicillin and ampicillin are drugs of choice for treatment ofbeta-hemolytic streptococcal infections. Susceptibility testing ofpenicillins and other beta-lactam agents approved by the FDA fortreatment of beta-hemolytic streptococcal infections need not beperformed routinely because nonsusceptible isolates are extremelyrare in any beta-hemolytic streptococcus and have not been reportedfor Streptococcus pyogenes (group A). (CLSI 2010) PATIENT NOT FASTINGP ERFORMED BY: CB [facility] Rlfejt8526 [address] [facility] [id number] Information: SRC:ANDREW [id number] Bacteria identified Respiratory culture Nom (Unsp spec) Final report Normal [facility] Work Phone: Comment on above: PATIENT NOT FASTINGP ERFORMED BY: [facility] Jxtrtz2862 [facility] [id number] Information: SRC:ANDREW U20371 URINE BRADFORD CULTURE (EFRAIN COL COUNT) ([id number])Ordered By: Preconstruction Manager on 02-25-2013 Bacteria identified Cx Nom (U) Final report Normal [facility] Work Phone: Comment on above: PATIENT NOT FASTINGP ERFORMED BY: CB [facility] Rzwtxf6043 [facility] [id number] Information: SRC:URC T98999 Bacteria identified Cx Nom (U) MUG Normal [facility] Work Phone: Comment on above: Mixed urogenital demetrio ra50,000-100,000 colony forming units per mL PATIENT NOT FASTINGP ERFORMED BY: [facility] Frgukj2143 [facility] [id number] Information: SRC:UR R89176 Urinalysis, Office (99355)Or dered By: Baylee Davis on 02-25-2013 Bilirubin Ql (U) Moderate Normal Comprehe nsive Internal Medicine Work Phone: Glucose Test strip (U) [Mass/Vol] Negative Normal [facility] Work Phone: Glucose Test strip (U) [Mass/Vol] Negative Normal [facility]; [facility] Work Phone: Hemoglobin Ql (U) Negative Normal Compreh ensive [facility] Work Phone: Hemoglobin Ql (U) Negative Normal Compreh ensive [facility]; [facility] Work Phone: Ketones Ql (U) Moderate Normal Comprehens jesus manuel [facility] Work Phone: Comment on above: trace Leukocyte esterase Test strip Ql (U) Large Normal [facility] Work Phone: Nitrite Ql (U) Negative Normal Comprehens jesus manuel [facility] Work Phone: Nitrite Ql (U) Negative Normal Comprehens jesus manuel [facility]; [facility] Work Phone: pH (U) 7.0 [pH] Normal [facility] Work Phone: Protein Ql (U) 30 mg/dL Normal Comprehens jesus manuel [facility] Work Phone: Specific gravity (U) [Rel density] 1.020 1 Normal [facility] Work Phone: Urobilinogen (24H U) [Mass/Time] Normal Normal [facility] Work Phone: URINE BRADFORD CULTURE-EFRAIN COL C OUNT (97246)Ordered By: Preconstruction Manager on 03-14-2010 Bacteria identified Cx Nom (U) Final report Normal [facility] Work Phone: Comment on above: PATIENT NOT FASTINGP ERFORMED BY: MADISON LabColina MayaUnoitg2452 [facility] [id number] Information: SRC:UR E63462 Bacteria identified Cx Nom (U) Escherichia coli Normal [facility] Work Phone: Comment on above: 400 Colonies/mL PATIENT NOT FASTINGP ERFORMED BY: MADISON [facility] Fritzu6685 [facility] [id number] Information: SRC:UR V52902 Other Antibiotic [Susc] MIHEAD Normal [facility] Work Phone: Comment on above: S = Susceptibl e; I = Intermediate; R = Resistant P = Positive; N = Negative MICS are expressed in micrograms per mL Antibiotic RSLT#1 RSLT#2 RSLT#3 RSLT#4Amoxicillin/Clavulanic Acid SAmpicillin SCefepime SCeftriaxone SCefuroxime SCephalothin SCiprofloxacin SESBL NGentamicin SImipenem SLevofloxacin SNitrofurantoin SPiperacillin/Tazobactam STetracycline STobramycin STrimethoprim/Sulfa S PATIENT NOT FASTINGP ERFORMED BY: MADISON [facility] Hpcbru3554 Pugh RoadMilindBlue Ridge Regional Hospital [id number] Information: SRC: I43624 Urinalysis, Office (51452)Or dered By: Cary Heaton on 03-13-2010 Bilirubin Ql (U) Negative Normal Comprehe nsive Internal Medicine Work Phone: Comment on above: no protein but other abn- so send for cx Bilirubin Ql (U) Negative Normal Comprehe nsive Internal Medicine; [facility] Work Phone: Comment on above: no protein but other abn- so send for cx Glucose Test strip (U) [Mass/Vol] Negative Normal [facility] Work Phone: Comment on above: no protein but other abn- so send for cx Glucose Test strip (U) [Mass/Vol] Negative Normal [facility]; [facility] Work Phone: Comment on above: no protein but other abn- so send for cx Hemoglobin Ql (U) Non Hemolyzed Trace Normal [facility] Work Phone: Comment on above: no protein but other abn- so send for cx Ketones Ql (U) Small Normal Comprehens jesus manuel [facility] Medicine Work Phone: Comment on above: no protein but other abn- so send for cx Leukocyte esterase Test strip Ql (U) Small Normal [facility] Work Phone: Comment on above: no protein but other abn- so send for cx Nitrite Ql (U) Negative Normal Comprehens jesus manuel [facility] Medicine Work Phone: Comment on above: no protein but other abn- so send for cx Nitrite Ql (U) Negative Normal Comprehens jesus manuel [facility]; [facility] Work Phone: Comment on above: no protein but other abn- so send for cx pH (U) 6.0 [pH] Normal [facility] Work Phone: Comment on above: no protein but other abn- so send for cx Protein Ql (U) Negative Normal Comprehens jesus manuel [facility] Medicine Work Phone: Comment on above: no protein but other abn- so send for cx Protein Ql (U) Negative Normal Comprehens jesus manuel [facility]; [facility] Work Phone: Comment on above: no protein but other abn- so send for cx Specific gravity (U) [Rel density] 1.025 1 Normal [facility] Work Phone: Comment on above: no protein but other abn- so send for cx Urobilinogen (24H U) [Mass/Time] Normal Normal [facility] Work Phone: Comment on above: no protein but other abn- so send for cx CBC with manual diff (02467) Ordered By: Preconstruction Manager on 02-27-2010 Basophils (Bld) [#/Vol] 0.0 {x10E3/uL} Normal 0.0-0.2 [facility] Work Phone: Comment on above: PATIENT NOT FASTINGP ERFORMED BY: [employer]6370 DataFoxBlue Ridge Regional Hospital [id number] Information: [id number] Basophils (Bld) [#/Vol] 0.0 10*3/uL Normal 0.0-0.2 [facility]; [facility] Work Phone: Comment on above: PATIENT NOT FASTINGP ERFORMED BY: Kaptur LabSilent Power6370 DataFoxBlue Ridge Regional Hospital [id number] Information: [id number] Basophils/100 WBC (Bld) 0 % Normal 0-3 [facility] Work Phone: Comment on above: PATIENT NOT FASTINGP ERFORMED BY: DreamHeart6370 DataFoxBlue [facility] Hospital [id number] Information: [id number] Eosinophils (Bld) [#/Vol] 0.2 {x10E3/uL} Normal 0.0-0.4 [facility] Work Phone: Comment on above: PATIENT NOT FASTINGP ERFORMED BY: MADISON AngelVirtua MarltonCqybrc8587 [facility] [id number] Information: [id number] Eosinophils (Bld) [#/Vol] 0.2 10*3/uL Normal 0.0-0.4 [facility]; [facility] Work Phone: Comment on above: PATIENT NOT FASTINGP ERFORMED BY: MADISON Villalobos[address] [id number] Information: [id number] Eosinophils/100 WBC (Bld) 2 % Normal 0-7 [facility] Work Phone: Comment on above: PATIENT NOT FASTINGP ERFORMED BY: MADISON Velezlin6370 [facility] [id number] Information: [id number] Erythrocyte distribution width (RBC) [Ratio] 12.4 % Normal 11.7-15.0 [facility] Work Phone: Comment on above: PATIENT NOT FASTINGP ERFORMED BY: MADISON Villalobos[address] [id number] Information: [id number] Hematocrit (Bld) [Volume fraction] 38.1 % Normal 34.0-44.0 [facility] Work Phone: Comment on above: PATIENT NOT FASTINGP ERFORMED BY: MADISON [address] [id number] Information: [id number] Hemoglobin (Bld) [Mass/Vol] 13.4 g/dL Normal 11.5-15.0 [facility] Work Phone: Comment on above: PATIENT NOT FASTINGP ERFORMED BY: MADISON VillalobosCoTom [place]ille 3190170 [facility] [id number] Information: [id number] Immature granulocytes (Bld) [#/Vol] 0.0 {x10E3/uL} Normal 0.0-0.1 [facility] Work Phone: Comment on above: PATIENT NOT FASTINGP ERFORMED BY: MADISON Velezlin6370 [facility] [id number] Information: [id number] Immature granulocytes (Bld) [#/Vol] 0.0 10*3/uL Normal 0.0-0.1 [facility]; [facility] Work Phone: Comment on above: PATIENT NOT FASTINGP ERFORMED BY: MADISON Velezlin6370 [facility] [id number] Information: [id number] Immature granulocytes/100 WBC (Bld) 0 % Normal 0-1 [facility] Work Phone: Comment on above: PATIENT NOT FASTINGP ERFORMED BY: MADISON Velezlin6370 [facility] [id number] Information: [id number] Lymphocytes (Bld) [#/Vol] 3.1 {x10E3/uL} Normal 0.7-4.5 [facility] Work Phone: Comment on above: PATIENT NOT FASTINGP ERFORMED BY: MADISON Angel Trwkcl1396 [facility] [id number] Information: [id number],[id number] Lymphocytes (Bld) [#/Vol] 3.1 10*3/uL Normal 0.7-4.5 [facility]; [facility] Work Phone: Comment on above: PATIENT NOT FASTINGP ERFORMED BY: MADISON Angel Jcroxg8188 [facility] [id number] Information: [id number] Lymphocytes/100 WBC (Bld) 24 % Normal 14-46 [facility] Work Phone: Comment on above: PATIENT NOT FASTINGP ERFORMED BY: MADISON Velezlin6370 [facility] [id number] Information: [id number] MCH (RBC) [Entitic mass] 29.1 pg Normal 27.0-34.0 [facility] Work Phone: Comment on above: PATIENT NOT FASTINGP ERFORMED BY: MADISON VillalobosRyan Ville 1904370 [facility] [id number] Information: [id number] MCHC (RBC) [Mass/Vol] 35.2 g/dL Normal 32.0-36.0 [facility] Internal Medicine Work Phone: Comment on above: PATIENT NOT FASTINGP ERFORMED BY: MADISON [address] [id number] Information: [id number] MCV (RBC) [Entitic vol] 83 fL Normal 80-98 [facility] Work Phone: Comment on above: PATIENT NOT FASTINGP ERFORMED BY: MADISON [address] [id number] Information: [id number] Monocytes (Bld) [#/Vol] 1.1 {x10E3/uL} Abnormal 0.1-1.0 [facility] Work Phone: Comment on above: PATIENT NOT FASTINGP ERFORMED BY: MADISON [place] [id number] [facility] [id number] Information: [id number] Monocytes (Bld) [#/Vol] 1.1 10*3/uL Abnormal 0.1-1.0 [facility]; [facility] Work Phone: Comment on above: PATIENT NOT FASTINGP ERFORMED BY: MADISON VillalobosRyan V[place] [id number] [facility] [id number] Information: [id number] Monocytes/100 WBC (Bld) 8 % Normal 4-13 [facility] Work Phone: Comment on above: PATIENT NOT FASTINGP ERFORMED BY: MADISON [facility]6370 [facility] [id number] Information: [id number] Neutrophils (Bld) [#/Vol] 8.3 {x10E3/uL} Abnormal 1.8-7.8 [facility] Work Phone: Comment on above: PATIENT NOT FASTINGP ERFORMED BY: MADISON [facility] Nzxkeq4941 [address] [facility] [id number] Information: [id number] Neutrophils (Bld) [#/Vol] 8.3 10*3/uL Abnormal 1.8-7.8 [facility]; [facility] Work Phone: Comment on above: PATIENT NOT FASTINGP ERFORMED BY: CB [facility] Byqlwt7282 [address] [facility] [id number] Information: [id number] Neutrophils/100 WBC (Bld) 66 % Normal 40-74 [facility] Work Phone: Comment on above: PATIENT NOT FASTINGP ERFORMED BY: MADISON [facility] Eugtbd9420 [facility] [id number] Information: [id number] Platelets (Bld) [#/Vol] 410 {x10E3/uL} Normal 140-415 [facility] Work Phone: Comment on above: PATIENT NOT FASTINGP ERFORMED BY: CB [facility] Fbtowu6271 [facility] [id number] Information: [id number] Platelets (Bld) [#/Vol] 410 10*3/uL Normal 140-415 [facility]; [facility] Work Phone: Comment on above: PATIENT NOT FASTINGP ERFORMED BY: CB [facility] Rycoit0916 [facility] [id number] Information: [id number] RBC (Bld) [#/Vol] 4.60 {x10E6/uL} Normal 3.80-5.10 [facility] Work Phone: Comment on above: PATIENT NOT FASTINGP ERFORMED BY: CB [facility] Venbas3657 [facility] [id number] Information: [id number] RBC (Bld) [#/Vol] 4.60 10*6/uL Normal 3.80-5.10 [facility]; [facility] Work Phone: Comment on above: PATIENT NOT FASTINGP ERFORMED BY: MADISON LabColina MayaTposgd3224 Pugh RoadDublin [place] [id number] Information: [id number] WBC (Bld) [#/Vol] 12.8 {x10E3/uL} Abnormal 4.0-10.5 [facility] Internal Medicine Work Phone: Comment on above: PATIENT NOT FASTINGP ERFORMED BY: CB [facility] Rwqqcd4113 Pugh RoadDublin [place] [id number] Information: [id number] WBC (Bld) [#/Vol] 12.8 10*3/uL Abnormal 4.0-10.5 [facility]; [facility] Work Phone: Comment on above: PATIENT NOT FASTINGP ERFORMED BY: MADISON [facility] Vvwtas6629 [address] RoadUnc Health Waynein [place] [id number] Information: [id number] Metabolic Panel, Comprehensi ve ([id number])Ordered By: Preconstruction Manager on 02-27-2010 Albumin [Mass/Vol] 4.3 g/dL Normal 3.5-5.5 [facility] Work Phone: Comment on above: PATIENT NOT FASTINGP ERFORMED BY: CB [facility] Hshown8740 [address] [facility] [place] [id number] Albumin/Globulin [Mass ratio] 1.2 {ratio} Normal 1.1-2.5 [facility] Work Phone: Comment on above: PATIENT NOT FASTINGP ERFORMED BY: CB [facility] Kxiuwc2272 [address]ugh RoadDublin [place] [id number] ALP [Catalytic activity/Vol] 102 [iU]/L Normal 45-300 [facility] Work Phone: Comment on above: PATIENT NOT FASTINGP ERFORMED BY: CB [facility] Pkwxmv9020 [address]ugh RoadDublin [place] [id number] ALP [Catalytic activity/Vol] 102 U/L Normal 45-300 [facility]; [facility] Work Phone: Comment on above: PATIENT NOT FASTINGP ERFORMED BY: MADISON LabKylee VelezUvrjpp4539 [address]ugh RoadDublin [place] [id number] ALT [Catalytic activity/Vol] 20 [iU]/L Normal 0-40 [facility] Work Phone: Comment on above: PATIENT NOT FASTINGP ERFORMED BY: CB [facility] Mnoxrc4019 [address] RoadDublin [place] [id number] ALT [Catalytic activity/Vol] 20 U/L Normal 0-40 [facility]; [facility] Work Phone: Comment on above: PATIENT NOT FASTINGP ERFORMED BY: MADISON LabKylee VelezMkedlh6854 [address]ugh RoadDublin [place] [id number] AST [Catalytic activity/Vol] 19 [iU]/L Normal 0-40 [facility] Work Phone: Comment on above: PATIENT NOT FASTINGP ERFORMED BY: MADISON Velezlin6370 [address] RoadDublin [place] [id number] AST [Catalytic activity/Vol] 19 U/L Normal 0-40 [facility]; [facility] Work Phone: Comment on above: PATIENT NOT FASTINGP ERFORMED BY: MADISON Velezlin6370 [address] RoadDublin [place] [id number] Bilirubin [Mass/Vol] 0.5 mg/dL Normal 0.0-1.2 [facility] Work Phone: Comment on above: PATIENT NOT FASTINGP ERFORMED BY: CB [facility] Tfimxj9241 [address] RoadDublin [place] [id number] Calcium [Mass/Vol] 9.6 mg/dL Normal 8.7-10.2 [facility] Work Phone: Comment on above: PATIENT NOT FASTINGP ERFORMED BY: MADISON [facility] Msrvcr7753 [address] RoadDublin [place] [id number] Chloride [Moles/Vol] 99 mmol/L Normal 97-108 [facility] Work Phone: Comment on above: PATIENT NOT FASTINGP ERFORMED BY: CB [facility] Zmcedd1212 [address] RoadDublin [place] [id number] CO2 [Moles/Vol] 24 mmol/L Normal 20-[address] [facility] Internal [facility] Work Phone: Comment on above: PATIENT NOT FASTINGP ERFORMED BY: CB [facility] Qxmqgt1678 [address]ugh RoadDublin [place] [id number] Creatinine [Mass/Vol] 0.68 mg/dL Normal 0.57-1.00 [facility] Internal Medicine Work Phone: Comment on above: PATIENT NOT FASTINGP ERFORMED BY: CB [facility] Hmrdnf4778 [address] RoadUnc Health Waynein [place] [id number] GFR/1.73 sq M predicted among blacks MDRD (S/P/Bld) [Vol rate/Area] mL/min/{1.73_m2} Normal [facility] Work Phone: Comment on above: Note: Persistent red uction for 3 months or more in an eGFR<60 mL/min/1.73 m2 defines CKD. Patients with eGFR values>/=60 mL/min/1.73 m2 may also have CKD if evidence of persistentproteinuria is present. Additional information may be found [email or web address]. PATIENT NOT FASTINGP ERFORMED BY: CB [facility] Expski2088 [address] [facility] [id number] GFR/1.73 sq M.predicted MDRD (S/P/Bld) [Vol rate/Area] mL/min/{1.73_m2} Normal [facility] Work Phone: Comment on above: PATIENT NOT FASTINGP ERFORMED BY: CB [facility] Vnlauc8868 [address] RoadDuin [place] [id number] Globulin (S) [Mass/Vol] 3.6 g/dL Normal 1.5-4.5 [facility] Work Phone: Comment on above: PATIENT NOT FASTINGP ERFORMED BY: CB [facility] Avkxwn0944 [address]ugh RoadDuin [place] [id number] Glucose [Mass/Vol] 80 mg/dL Normal 65-99 [facility] Work Phone: Comment on above: PATIENT NOT FASTINGP ERFORMED BY: CB [facility] Yzxizn3487 [address] RoadDublin [place] [id number] Potassium [Moles/Vol] 4.3 mmol/L Normal 3.5-5.2 [facility] Internal Medicine Work Phone: Comment on above: PATIENT NOT FASTINGP ERFORMED BY: CB [facility] Yithny3451 [address] RoadDublin [place] [id number] Protein [Mass/Vol] 7.9 g/dL Normal 6.0-8.5 [facility] Work Phone: Comment on above: PATIENT NOT FASTINGP ERFORMED BY: CB [facility] Yidyhy3826 [address] RoadDuin [place] [id number] Sodium [Moles/Vol] 137 mmol/L Normal 135-145 [facility] Work Phone: Comment on above: PATIENT NOT FASTINGP ERFORMED BY: CB [facility] Qnmdpu6264 [address] RoadDuin [place] [id number] Urea nitrogen [Mass/Vol] 7 mg/dL Normal 5-26 [facility] Work Phone: Comment on above: PATIENT NOT FASTINGP ERFORMED BY: CB [facility] Iymyzl3244 [address] RoadDuin [place] [id number] Urea nitrogen/Creatinine [Mass ratio] 10 mg/mg Normal 8-27 [facility] Work Phone: Comment on above: PATIENT NOT FASTINGP ERFORMED BY: CB [facility] Ieiysz4749 [address] RoadDublin [place] [id number] FECAL OCCULT HGB ASSAY- tube s sent home ([id number])on 02-22-2010 Hemoglobin.gastrointes tinal Ql (Stl) Negative Normal [facility] Work Phone: Hemoglobin.gastrointes tinal Ql (Stl) Negative Normal [facility]; [facility] Work Phone: No Panel Information Enteric Bacteriology [facility] Work Phone: Vital Signs Date Time Vital Sign Value Performing Clinician Facility 08-05-2024 14:57-0500 Body height 170.[address] May Alicia DO Work Phone: [facility] 08-05-2024 14:56-0500 Body mass index (BMI) [Ratio] 48.2 kg/m2 Dr. May Alicia DO Work Phone: [facility] 08-05-2024 14:56-0500 Body weight 139.[address] May Alicia DO Work Phone: [facility] 08-05-2024 14:56-0500 Diastolic blood pressure 90 mm[Hg] Dr. May Alicia DO Work Phone: [facility] 08-05-2024 14:56-0500 Systolic blood pressure 142 mm[Hg] Dr. May Alicia DO Work Phone: [facility] 07-30-2024 09:09-0500 Body mass index (BMI) [Ratio] 48.5 kg/m2 Dr. May Alicia DO Work Phone: [facility] 07-30-2024 09:09-0500 Body temperature 97.7 [degF] Dr. May Alicia DO Work Phone: [facility] 07-30-2024 09:09-0500 Body weight 140.[address] May Alicia DO Work Phone: [facility] 07-30-2024 09:09-0500 Diastolic blood pressure 89 mm[Hg] Dr. May Alicia DO Work Phone: [facility] 07-30-2024 09:09-0500 Heart rate 86 /min Dr. May Alicia DO Work Phone: [facility] 07-30-2024 09:09-0500 Respiratory rate 18 /min Dr. May Alicia DO Work Phone: [facility] 07-30-2024 09:09-0500 SaO2% (BldA) [Mass fraction] 98 % Dr. May Alicia DO Work Phone: [facility] 07-30-2024 09:09-0500 Systolic blood pressure 145 mm[Hg] Dr. May Alicia DO Work Phone: [facility] 07-29-2024 14:41-0500 Diastolic blood pressure 95 mm[Hg] Dr. May Alicia DO Work Phone: [facility] 07-29-2024 14:41-0500 Heart rate 91 /min Dr. May Alicia DO Work Phone: [facility] 07-29-2024 14:41-0500 Respiratory rate 16 /min Dr. May Alicia DO Work Phone: [facility] 07-29-2024 14:41-0500 SaO2% (BldA) [Mass fraction] 95 % Dr. May Alicia DO Work Phone: [facility] 07-29-2024 14:41-0500 Systolic blood pressure 153 mm[Hg] Dr. May Alicia DO Work Phone: [facility] 07-29-2024 12:46-0500 Body mass index (BMI) [Ratio] 47.7 kg/m2 Dr. May Alicia DO Work Phone: [facility] 07-29-2024 12:46-0500 Body temperature 97.5 [degF] Dr. May Alicia DO Work Phone: [facility] 07-29-2024 12:46-0500 Body weight 138.[address] May Alicia DO Work Phone: [facility] 07-03-2024 14:34-0500 Body mass index (BMI) [Ratio] 47 kg/m2 Dr. May Alicia DO Work Phone: [facility] 07-03-2024 14:34-0500 Body temperature 97.2 [degF] Dr. May Alicia DO Work Phone: [facility] 07-03-2024 14:34-0500 Body weight 136.[address] May Alicia DO Work Phone: [facility] 07-03-2024 14:34-0500 Diastolic blood pressure 88 mm[Hg] Dr. May Alicia DO Work Phone: [facility] 07-03-2024 14:34-0500 Heart rate 70 /min Dr. May Alicia DO Work Phone: [facility] 07-03-2024 14:34-0500 Respiratory rate 18 /min Dr. May Alicia DO Work Phone: [facility] 07-03-2024 14:34-0500 SaO2% (BldA) [Mass fraction] 100 % Dr. May Alicia DO Work Phone: [facility] 07-03-2024 14:34-0500 Systolic blood pressure 124 mm[Hg] Dr. May Alicia DO Work Phone: [facility] 06-30-2024 08:33-0500 SaO2% (BldA) [Mass fraction] 98 % Dr. May Alicia DO Work Phone: [facility] 06-30-2024 08:28-0500 Body temperature 98.2 [degF] Dr. May Alicia DO Work Phone: [facility] 06-30-2024 08:28-0500 Diastolic blood pressure 80 mm[Hg] Dr. May Alicia DO Work Phone: [facility] 06-30-2024 08:28-0500 Heart rate 95 /min Dr. May Alicia DO Work Phone: [facility] 06-30-2024 08:28-0500 Systolic blood pressure 120 mm[Hg] Dr. May Alicia DO Work Phone: [facility] 06-29-2024 14:08-0500 Body mass index (BMI) [Ratio] 49.1 kg/m2 Dr. May Alicia DO Work Phone: [facility] 06-29-2024 14:08-0500 Body weight [address] aMy Alicia DO Work Phone: [facility] 06-29-2024 14:08-0500 Diastolic blood pressure 84 mm[Hg] Dr. May Alicia DO Work Phone: [facility] 06-29-2024 14:08-0500 Systolic blood pressure 132 mm[Hg] Dr. May Alicia DO Work Phone: [facility] 06-24-2024 14:28-0500 Body temperature 98.6 [degF] Dr. May Alicia DO Work Phone: [facility] 06-24-2024 14:28-0500 Diastolic blood pressure 82 mm[Hg] Dr. May Alicia DO Work Phone: [facility] 06-24-2024 14:28-0500 Heart rate 112 /min Dr. May Alicia DO Work Phone: [facility] 06-24-2024 14:28-0500 Respiratory rate 14 /min Dr. May Alicia DO Work Phone: [facility] 06-24-2024 14:28-0500 SaO2% (BldA) [Mass fraction] 97 % Dr. May Alicia DO Work Phone: [facility] 06-24-2024 14:28-0500 Systolic blood pressure 126 mm[Hg] Dr. May Alicia DO Work Phone: [facility] 06-25-2023 14:27-0500 Body height [address] May Alicia Work Phone: [facility] 06-25-2023 14:27-0500 Body mass index (BMI) [Ratio] 47.7 kg/m2 Dr. May Alicia Work Phone: [facility] 06-25-2023 14:27-0500 Body weight [address] May Alicia Work Phone: [facility] 06-25-2023 14:27-0500 Diastolic blood pressure 84 mm[Hg] Dr. May Alicia Work Phone: [facility] 06-25-2023 14:27-0500 Systolic blood pressure 138 mm[Hg] Dr. May Alicia Work Phone: [facility] 05-17-2023 11:14-0500 Diastolic blood pressure 94 mm[Hg] [facility] 05-17-2023 11:14-0500 Heart rate 92 /min [facility] 05-17-2023 11:14-0500 Respiratory rate 16 /min [facility] 05-17-2023 11:14-0500 SaO2% (BldA) [Mass fraction] 96 % [facility] 05-17-2023 11:14-0500 Systolic blood pressure 160 mm[Hg] [facility] 05-17-2023 09:55-0500 Body height 170 cm [facility] 05-17-2023 09:55-0500 Body mass index (BMI) [Ratio] 39.2 kg/m2 [facility] 05-17-2023 09:55-0500 Body temperature 97.7 [degF] [facility] 05-17-2023 09:55-0500 Body weight 113.39 kg [facility] 02-18-2023 15:58-0400 Body height 167.64 cm LIBORIO [...] 15:58-0400 Body temperature 97.9 [degF] LIBORIO Torrez MOSES Comprehensiv e [facility]; [facility] Work Phone: Comment on above: Method: Temporal 02-18-2023 15:58-0400 Body weight 137.89 kg LIBORIO Shan LOPES [facility]; [facility] Work Phone: 02-18-2023 15:58-0400 Diastolic blood pressure 82 mm[Hg] LIBORIO Torrez MOSES [facility]; [facility] Work Phone: Comment on above: Patient Position: Sitting; Cuff Location : Left Arm; Cuff Size: Large 02-18-2023 15:58-0400 Heart rate 100 /min LIBORIO Shan LOPES [facility]; [facility] Work Phone: Comment on above: Pattern: Regular 02-18-2023 15:58-0400 Respiratory rate 18 /min LIBORIO hSan LOPES Comprehens[facility]; [facility] Work Phone: Comment on above: Pattern: Unlabored 02-18-2023 15:58-0400 SaO2% (BldA) [Mass fraction] 98 % LIBORIO Shan LOPES [facility]; [facility] Work Phone: Comment on above: Room air 02-18-2023 15:58-0400 Systolic blood pressure 114 mm[Hg] LIBORIO Shan LOPES [facility]; [facility] Work Phone: Comment on above: Patient Position: Sitting; Cuff Location : Left Arm; Cuff Size: Large 01-17-2023 13:11-0400 Body mass index (BMI) [Ratio] 46.9 kg/m2 Dr. May Alicia Work Phone: [facility] 01-17-2023 13:11-0400 Body weight [address] May Alicia Work Phone: [facility] 01-17-2023 12:49-0400 Body height 170.[address] May Alicia Work Phone: [facility] 01-17-2023 12:49-0400 Body temperature 97.6 [degF] Dr. May Alicia Work Phone: [facility] 01-17-2023 12:49-0400 Diastolic blood pressure 98 mm[Hg] Dr. May Alicia Work Phone: [facility] 01-17-2023 12:49-0400 Heart rate 108 /min Dr. May Alicia Work Phone: [facility] 01-17-2023 12:49-0400 Respiratory rate 18 /min Dr. May Alicia Work Phone: [facility] 01-17-2023 12:49-0400 SaO2% (BldA) [Mass fraction] 100 % Dr. May Alicia Work Phone: [facility] 01-17-2023 12:49-0400 Systolic blood pressure 163 mm[Hg] Dr. May Alicia Work Phone: [facility] 12-13-2022 07:35-0400 Body temperature 97.3 [degF] Dr. May Alicia Work Phone: [facility] 12-13-2022 07:35-0400 Diastolic blood pressure 76 mm[Hg] Dr. May Alicia Work Phone: [facility] 12-13-2022 07:35-0400 Heart rate 71 /min Dr. May Alicia Work Phone: [facility] 12-13-2022 07:35-0400 Respiratory rate 16 /min Dr. May Alicia Work Phone: [facility] 12-13-2022 07:35-0400 SaO2% (BldA) [Mass fraction] 100 % Dr. May Alicia Work Phone: [facility] 12-13-2022 07:35-0400 Systolic blood pressure 129 mm[Hg] Dr. May Alicia Work Phone: [facility] 12-13-2022 05:53-0400 Body height 170.[address] May Alicia Work Phone: [facility] 12-13-2022 05:53-0400 Body mass index (BMI) [Ratio] 47.7 kg/m2 Dr. May Alicia Work Phone: [facility] 12-13-2022 05:53-0400 Body weight 138.[address] May Alicia Work Phone: [facility] 2022 11:26-0400 Body height 170.[address] May Alicia Work Phone: [facility] 2022 11:26-0400 Body mass index (BMI) [Ratio] 47.1 kg/m2 Dr. May Alicia Work Phone: [facility] 2022 11:26-0400 Body weight 136.[address] May Alicia Work Phone: [facility] 06-26-2022 07:54-0500 Body height 170.[address] May Alicia Work Phone: [facility] 06-26-2022 07:54-0500 Body mass index (BMI) [Ratio] 47 kg/m2 Dr. May Alicia Work Phone: [facility] 06-26-2022 07:54-0500 Body weight 136.[address] May Alicia Work Phone: [facility] 06-26-2022 07:54-0500 Diastolic blood pressure 84 mm[Hg] Dr. May Alicia Work Phone: [facility] 06-26-2022 07:54-0500 Heart rate 107 /min Dr. May Alicia Work Phone: [facility] 06-26-2022 07:54-0500 SaO2% (BldA) [Mass fraction] 98 % Dr. May Alicia Work Phone: [facility] 06-26-2022 07:54-0500 Systolic blood pressure 137 mm[Hg] Dr. May Alicia Work Phone: [facility] 05-01-2022 15:55-0500 Body temperature 98.7 [degF] Dr. May Alicia Work Phone: [facility] 05-01-2022 15:55-0500 Diastolic blood pressure 82 mm[Hg] Dr. May Alicia Work Phone: [facility] 05-01-2022 15:55-0500 Heart rate 113 /min Dr. May Alicia Work Phone: [facility] 05-01-2022 15:55-0500 Respiratory rate 20 /min Dr. May Alicia Work Phone: [facility] 05-01-2022 15:55-0500 SaO2% (BldA) [Mass fraction] 99 % Dr. May Alicia Work Phone: [facility] 05-01-2022 15:55-0500 Systolic blood pressure 120 mm[Hg] Dr. May Alicia Work Phone: [facility] 03-26-2022 09:59-0400 Body height 170.[address] May Alicia Work Phone: [facility] 03-26-2022 09:59-0400 Body mass index (BMI) [Ratio] 46.6 kg/m2 Dr. May Alicia Work Phone: [facility] 03-26-2022 09:59-0400 Body weight 135.[address] May Alicia Work Phone: [facility] 03-26-2022 09:59-0400 Diastolic blood pressure 84 mm[Hg] Dr. May Alicia Work Phone: [facility] 03-26-2022 09:59-0400 Heart rate 80 /min Dr. May Alicia Work Phone: [facility] 03-26-2022 09:59-0400 SaO2% (BldA) [Mass fraction] 96 % Dr. May Alicia Work Phone: [facility] 03-26-2022 09:59-0400 Systolic blood pressure 126 mm[Hg] Dr. May Alicia Work Phone: [facility] 03-21-2022 11:16-0400 Body height 167.64 cm Sindhu Sepulveda [facility]; [facility] Work Phone: 03-21-2022 11:16-0400 Body mass index (BMI) [Ratio] 47.82 kg/m2 Sindhu Sepulveda [facility]; [facility] Work Phone: 03-21-2022 11:16-0400 Body surface area Derived from formula 2.36 m2 Sindhu Sepulveda [facility]; [facility] Work Phone: 03-21-2022 11:16-0400 Body temperature 97.4 [degF] Sindhu Sepulveda [facility] Comprehensiv e [facility]; [facility] Work Phone: Comment on above: Method: Infrared 03-21-2022 11:16-0400 Body weight 134.38 kg Sindhu Sepulveda [facility]; [facility] Work Phone: 03-21-2022 11:16-0400 Diastolic blood pressure 84 mm[Hg] Sindhu Sepulveda [facility]; [facility] Work Phone: Comment on above: Patient Position: Sitting; Cuff Location : Left Arm; Cuff Size: Standard 03-21-2022 11:16-0400 Heart rate 100 /min Sindhu Sepulveda [facility]; [facility] Work Phone: Comment on above: Pattern: Regular 03-21-2022 11:16-0400 Respiratory rate 16 /min Sindhu Sepulveda [facility] Comprehensiv e [facility]; [facility] Work Phone: Comment on above: Pattern: Unlabored 03-21-2022 11:16-0400 SaO2% (BldA) [Mass fraction] 98 % Sindhu Sepulveda [facility]; [facility] Work Phone: Comment on above: Room air 03-21-2022 11:16-0400 Systolic blood pressure 124 mm[Hg] Sindhu Sepulveda [facility]; [facility] Work Phone: Comment on above: Patient Position: Sitting; Cuff Location : Left Arm; Cuff Size: Standard 03-12-2022 11:55-0400 Body temperature 97.6 [degF] Dr. May Alicia Work Phone: [facility] 03-12-2022 11:55-0400 Diastolic blood pressure 84 mm[Hg] Dr. May Alicia Work Phone: [facility] 03-12-2022 11:55-0400 Heart rate 79 /min Dr. May Alicia Work Phone: [facility] 03-12-2022 11:55-0400 Respiratory rate 16 /min Dr. May Alicia Work Phone: [facility] 03-12-2022 11:55-0400 SaO2% (BldA) [Mass fraction] 100 % Dr. May Alicia Work Phone: [facility] 03-12-2022 11:55-0400 Systolic blood pressure 128 mm[Hg] Dr. May Alicia Work Phone: [facility] 03-12-2022 09:54-0400 Body mass index (BMI) [Ratio] 45.9 kg/m2 Dr. May Alicia Work Phone: [facility] 03-12-2022 09:54-0400 Body weight [address] May Alicia Work Phone: [facility] 02-02-2022 09:02-0400 Body mass index (BMI) [Ratio] 46.2 kg/m2 Dr. May Alicia Work Phone: [facility] Work Phone: 02-02-2022 09:02-0400 Body weight 133.[address] May Alicia Work Phone: [facility] Work Phone: 02-02-2022 09:02-0400 Diastolic blood pressure 79 mm[Hg] Dr. May Alicia Work Phone: [facility] Work Phone: 02-02-2022 09:02-0400 Heart rate 92 /min Dr. May Alicia Work Phone: [facility] Work Phone: 02-02-2022 09:02-0400 SaO2% (BldA) [Mass fraction] 98 % Dr. May Alicia Work Phone: [facility] Work Phone: 02-02-2022 09:02-0400 Systolic blood pressure 139 mm[Hg] Dr. May Alicia Work Phone: [facility] Work Phone: 12-22-2021 11:06-0400 Diastolic blood pressure 88 mm[Hg] Dr. May Alicia Work Phone: [facility] Work Phone: 12-22-2021 11:06-0400 Systolic blood pressure 126 mm[Hg] Dr. May Alicia Work Phone: [facility] Work Phone: 12-22-2021 09:22-0400 Body height 170.[address] May Alicia Work Phone: [facility] Work Phone: 12-22-2021 09:22-0400 Body mass index (BMI) [Ratio] 30.2 kg/m2 Dr. May Alicia Work Phone: [facility] Work Phone: 12-22-2021 09:22-0400 Body weight 87.[address] May Alicia Work Phone: [facility] Work Phone: 12-22-2021 09:22-0400 Heart rate 107 /min Dr. May Alicia Work Phone: [facility] Work Phone: 12-22-2021 09:040 SaO2% (BldA) [Mass fraction] 98 % Dr. May Alicia Work Phone: [facility] Work Phone: 03-15-2021 11:040 Body height 167.64 cm Dorothy Arriaga MA [facility]; [facility] Work Phone: 03-15-2021 11:22-0400 Body mass index (BMI) [Ratio] 45.72 kg/m2 Dorothy Arriaga MA [facility]; [facility] Work Phone: 03-15-2021 [id number] Body surface area Derived from formula 2.32 m2 Dorothy Arriaga MA [facility]; [facility] Work Phone: 03-15-2021 11:040 Body temperature 97.5 [degF] Dorothy Arriaga MA [facility]; [facility] Work Phone: Comment on above: Method: Temporal 03-15-2021 11:040 Body weight 128.48 kg Dorothy Arriaga MA [facility]; [facility] Work Phone: 03-15-2021 11:22-0400 Diastolic blood pressure 76 mm[Hg] Dorothy Arriaga MA [facility]; [facility] Work Phone: Comment on above: Patient Position: Sitting; Cuff Location : Left Arm; Cuff Size: Standard 03-15-2021 11:22-0400 Heart rate 138 /min Dorothy Arriaga MA [facility]; [facility] Work Phone: Comment on above: Pattern: Regular 03-15-2021 11:22-0400 Respiratory rate 17 /min Dorothy Arriaga MA [facility]; [facility] Work Phone: Comment on above: Pattern: Unlabored 03-15-2021 11:22-0400 SaO2% (BldA) [Mass fraction] 98 % Dorothy Arriaga MA [facility]; [facility] Work Phone: Comment on above: Room air 03-15-2021 11:22-0400 Systolic blood pressure 120 mm[Hg] Dorothy Arriaga MA [facility]; [facility] Work Phone: Comment on above: Patient Position: Sitting; Cuff Location : Left Arm; Cuff Size: Standard 02-24-2020 08:00-0400 BMI (Body Mass Index) 46.52 kg/m2 Destiny Carrillo LPN [facility] Work Phone: 02-24-2020 08:00-0400 Body Temperature 97.8 [degF] Destiny Carrillo LPN [facility] Work Phone: Comment on above: Method: Temporal 02-24-2020 08:00-0400 Body weight 130.75 kg Destiny Carrillo LPN [facility] Work Phone: 02-24-2020 08:00-0400 BP Diastolic 82 mm[Hg] Destiny Carrillo LPN [facility] Work Phone: Comment on above: Patient Position: Sitting; Cuff Location : Left Arm; Cuff Size: Standard 02-24-2020 08:00-0400 BP Systolic 122 mm[Hg] Destiny Carrillo LPN [facility] Work Phone: Comment on above: Patient Position: Sitting; Cuff Location : Left Arm; Cuff Size: Standard 02-24-2020 08:00-0400 BSA (Body Surface Area) 2.34 m2 Destiny Carrillo LPN [facility] Work Phone: 02-24-2020 08:00-0400 Height 167.64 cm Destiny Carrillo LPN [facility] Work Phone: 02-24-2020 08:00-0400 Pulse (Heart Rate) 89 /min [facility] Work Phone: Comment on above: Pattern: Regular 02-24-2020 08:00-0400 Pulse Oximetry 98 % May Alicia [facility] Work Phone: Comment on above: Room air 02-24-2020 08:00-0400 Respiratory Rate 16 /min Destiny Carrillo LPN [facility] Work Phone: Comment on above: Pattern: Unlabored 02-24-2020 08:00-0400 SaO2% (BldA) [Mass fraction] 98 % Destiny Carrillo [facility]; [facility] Work Phone: Comment on above: Room air 10-21-2019 09:05-0400 BMI (Body Mass Index) 42.79 kg/m2 May Eliseo DO Work Phone: [facility] Work Phone: Comment on above: Pt reported vitals 10-21-2019 09:05-0400 Body Temperature 97.6 [degF] May Eliseo DO Work Phone: [facility] Work Phone: Comment on above: Method: Oral Pt reported vitals 10-21-2019 09:05-0400 Body weight 120.26 kg May Eliseo DO Work Phone: [facility] Work Phone: Comment on above: Pt reported vitals 10-21-2019 09:05-0400 BP Diastolic 79 mm[Hg] May Eliseo DO Work Phone: [facility] Work Phone: Comment on above: Patient Position: Sitting Pt reported vitals 10-21-2019 09:05-0400 BP Systolic 109 mm[Hg] May Eliseo DO Work Phone: [facility] Work Phone: Comment on above: Patient Position: Sitting Pt reported vitals 10-21-2019 09:05-0400 BSA (Body Surface Area) 2.25 m2 May Eliseo DO Work Phone: [facility] Work Phone: Comment on above: Pt reported vitals 10-21-2019 09:05-0400 Height 167.64 cm May Eliseo DO Work Phone: [facility] Work Phone: Comment on above: Pt reported vitals 10-21-2019 09:05-0400 Pulse (Heart Rate) 84 /min May Eliseo DO Work Phone: [facility] Work Phone: Comment on above: Pattern: Regular Pt reported vitals 07-22-2019 13:11-0500 BMI (Body Mass Index) 43.28 kg/m2 Sindhu Sepulveda CMA [facility] Work Phone: 07-22-2019 13:11-0500 Body Temperature 97.3 [degF] Sindhu Sepulveda CMA [facility] Work Phone: Comment on above: Method: Temporal 07-22-2019 13:11-0500 Body weight 121.62 kg Sindhu Sepulveda CMA [facility] Work Phone: 07-22-2019 13:11-0500 BP Diastolic 90 mm[Hg] Sindhu Gleasonius BRANDING MACHINE OPERATOR [facility] Work Phone: Comment on above: Patient Position: Sitting; Cuff Location : Left Arm; Cuff Size: Standard 07-22-2019 13:11-0500 BP Systolic 138 mm[Hg] Sindhu Sepulveda BRANDING MACHINE OPERATOR [facility] Work Phone: Comment on above: Patient Position: Sitting; Cuff Location : Left Arm; Cuff Size: Standard 07-22-2019 13:11-0500 BSA (Body Surface Area) 2.27 m2 Sindhu Sepulveda BRANDING MACHINE OPERATOR [facility] Work Phone: 07-22-2019 13:11-0500 Height 167.64 cm Sindhu Sepulveda BRANDING MACHINE OPERATOR [facility] Work Phone: 07-22-2019 13:11-0500 Pulse (Heart Rate) 117 /min Sindhu Sepulveda CMA [facility] Work Phone: Comment on above: Pattern: Regular 07-22-2019 13:11-0500 Pulse Oximetry 97 % May Eliseo [facility] Work Phone: Comment on above: Room air 07-22-2019 13:11-0500 Respiratory Rate 18 /min Sindhu Sepulveda BRANDING MACHINE OPERATOR [facility] Work Phone: Comment on above: Pattern: Unlabored 07-22-2019 13:11-0500 SaO2% (BldA) [Mass fraction] 97 % Sindhu Sepulveda BRANDING MACHINE OPERATOR [facility]; [facility] Work Phone: Comment on above: Room air 02-16-2019 14:41-0400 BMI (Body Mass Index) 45.7 kg/m2 Cary Heaton RN [facility] Work Phone: 02-16-2019 14:41-0400 Body Temperature 97.7 [degF] Cary Heaton RN [facility] Work Phone: Comment on above: Method: Temporal 02-16-2019 14:41-0400 Body weight 128.43 kg Cary Heaton RN [facility] Work Phone: 02-16-2019 14:41-0400 BP Diastolic 76 mm[Hg] Cary Heaton RN [facility] Work Phone: Comment on above: Patient Position: Sitting; Cuff Location : Left Arm; Cuff Size: Standard 02-16-2019 14:41-0400 BP Systolic 122 mm[Hg] Cary Heaton RN [facility] Work Phone: Comment on above: Patient Position: Sitting; Cuff Location : Left Arm; Cuff Size: Standard 02-16-2019 14:41-0400 BSA (Body Surface Area) 2.32 m2 Cary Heaton RN [facility] Work Phone: 02-16-2019 14:41-0400 Height 167.64 cm Cary Heaton RN [facility] Work Phone: 02-16-2019 14:41-0400 Pulse (Heart Rate) 92 /min Cary Heaton RN [facility] Work Phone: Comment on above: Pattern: Regular 02-16-2019 14:41-0400 Pulse Oximetry 98 % Mayamelie Felipeon [facility] Work Phone: Comment on above: Room air 02-16-2019 14:41-0400 Respiratory Rate 16 /min Cary Heaton RN [facility] Work Phone: Comment on above: Pattern: Unlabored 02-16-2019 14:41-0400 SaO2% (BldA) [Mass fraction] 98 % Cary Heaton RN [facility]; [facility] Work Phone: Comment on above: Room air 02-12-2018 07:57-0400 BMI (Body Mass Index) 44.59 kg/m2 Cary Heaton RN [facility] Work Phone: 02-12-2018 07:57-0400 Body weight 125.31 kg Cary Heaton RN [facility] Work Phone: 02-12-2018 07:57-0400 BP Diastolic 78 mm[Hg] Cary Heaton RN [facility] Work Phone: Comment on above: Patient Position: Sitting; Cuff Location : Left Arm; Cuff Size: Large 02-12-2018 07:57-0400 BP Systolic 118 mm[Hg] Cary Heaton RN [facility] Work Phone: Comment on above: Patient Position: Sitting; Cuff Location : Left Arm; Cuff Size: Large 02-12-2018 07:57-0400 BSA (Body Surface Area) 2.29 m2 Cary Heaton RN [facility] Work Phone: 02-12-2018 07:57-0400 Height 167.64 cm Cary Heaton RN [facility] Work Phone: 02-12-2018 07:57-0400 Pulse (Heart Rate) 88 /min Cary Heaton RN [facility] Work Phone: Comment on above: Pattern: Regular 02-12-2018 07:57-0400 Pulse Oximetry 98 % May Alicia [facility] Work Phone: Comment on above: Room air 02-12-2018 07:57-0400 Respiratory Rate 18 /min Cary Heaton RN [facility] Work Phone: Comment on above: Pattern: Unlabored 02-12-2018 07:57-0400 SaO2% (BldA) [Mass fraction] 98 % Cary Heaton RN [facility]; [facility] Work Phone: Comment on above: Room air 08-14-2017 12:16-0400 BMI (Body Mass Index) 44.79 kg/m2 Cary Heaton RN [facility] Work Phone: 08-14-2017 12:16-0400 Body weight 125.87 kg Cary Heaton RN [facility] Work Phone: 08-14-2017 12:16-0400 BP Diastolic 80 mm[Hg] Cary Heaton RN [facility] Work Phone: Comment on above: Patient Position: Sitting; Cuff Location : Left Arm; Cuff Size: Large 08-14-2017 12:16-0400 BP Systolic 122 mm[Hg] Cary Heaton RN [facility] Work Phone: Comment on above: Patient Position: Sitting; Cuff Location : Left Arm; Cuff Size: Large 08-14-2017 12:16-0400 BSA (Body Surface Area) 2.3 m2 Cary Heaton RN [facility] Work Phone: 08-14-2017 12:16-0400 Height 167.64 cm Cary Heaton RN [facility] Work Phone: 08-14-2017 12:16-0400 Pulse (Heart Rate) 89 /min Cary Heaton RN [facility] Work Phone: Comment on above: Pattern: Regular 08-14-2017 12:16-0400 Pulse Oximetry 96 % May Eliseo [facility] Work Phone: Comment on above: Room air 08-14-2017 12:16-0400 Respiratory Rate 18 /min Cary Heaton RN [facility] Work Phone: Comment on above: Pattern: Unlabored 08-14-2017 12:16-0400 SaO2% (BldA) [Mass fraction] 96 % Cary Heaton RN [facility]; [facility] Work Phone: Comment on above: Room air 08-01-2017 07:46-0500 BMI (Body Mass Index) 44.79 kg/m2 Cary Heaton RN [facility] Work Phone: 08-01-2017 07:46-0500 Body weight 125.87 kg Cary Heaton RN [facility] Work Phone: 08-01-2017 07:46-0500 BP Diastolic 88 mm[Hg] Cary Heaton RN [facility] Work Phone: Comment on above: Patient Position: Sitting; Cuff Location : Left Arm; Cuff Size: Large 08-01-2017 07:46-0500 BP Systolic 132 mm[Hg] Cary Heaton RN [facility] Work Phone: Comment on above: Patient Position: Sitting; Cuff Location : Left Arm; Cuff Size: Large 08-01-2017 07:46-0500 BSA (Body Surface Area) 2.3 m2 Cary Heaton RN [facility] Work Phone: 08-01-2017 07:46-0500 Height 167.64 cm Cary Heaton RN [facility] Work Phone: 08-01-2017 07:46-0500 Pulse (Heart Rate) 88 /min Cary Heaton RN [facility] Work Phone: Comment on above: Pattern: Regular 08-01-2017 07:46-0500 Pulse Oximetry 97 % May Alicia [facility] Work Phone: Comment on above: Room air 08-01-2017 07:46-0500 Respiratory Rate 18 /min Cary Heaton RN [facility] Work Phone: Comment on above: Pattern: Unlabored 08-01-2017 07:46-0500 SaO2% (BldA) [Mass fraction] 97 % Cary Heaton RN [facility]; [facility] Work Phone: Comment on above: Room air 03-04-2017 09:39-0400 BMI (Body Mass Index) 42.77 kg/m2 Cary Heaton RN [facility] Work Phone: 03-04-2017 09:39-0400 Body weight 120.2 kg Cary Heaton RN [facility] Work Phone: 03-04-2017 09:39-0400 BP Diastolic 92 mm[Hg] Cary Heaton RN [facility] Work Phone: Comment on above: Patient Position: Sitting; Cuff Location : Left Arm; Cuff Size: Large 03-04-2017 09:39-0400 BP Systolic 132 mm[Hg] Cary Heaton RN [facility] Work Phone: Comment on above: Patient Position: Sitting; Cuff Location : Left Arm; Cuff Size: Large 03-04-2017 09:39-0400 BSA (Body Surface Area) 2.25 m2 Cary Heaton RN [facility] Work Phone: 03-04-2017 09:39-0400 Height 167.64 cm Cary Heaton RN [facility] Work Phone: 03-04-2017 09:39-0400 Pulse (Heart Rate) 86 /min Cary Heaton RN [facility] Work Phone: Comment on above: Pattern: Regular 03-04-2017 09:39-0400 Pulse Oximetry 97 % May Alicia [facility] Work Phone: Comment on above: Room air 03-04-2017 09:39-0400 Respiratory Rate 16 /min Cary Heaton RN [facility] Work Phone: Comment on above: Pattern: Unlabored 03-04-2017 09:39-0400 SaO2% (BldA) [Mass fraction] 97 % Cary Heaton RN [facility]; [facility] Work Phone: Comment on above: Room air 03-15-2016 09:06-0400 BMI (Body Mass Index) 42.49 kg/m2 Cary Heaton RN [facility] Work Phone: 03-15-2016 09:06-0400 Body weight 119.41 kg Cary Heaton RN [facility] Work Phone: 03-15-2016 09:06-0400 BP Diastolic 88 mm[Hg] Cary Heaton RN [facility] Work Phone: Comment on above: Patient Position: Sitting; Cuff Location : Left Arm; Cuff Size: Large 03-15-2016 09:06-0400 BP Systolic 138 mm[Hg] Cary Heaton RN [facility] Work Phone: Comment on above: Patient Position: Sitting; Cuff Location : Left Arm; Cuff Size: Large 03-15-2016 09:06-0400 BSA (Body Surface Area) 2.25 m2 Cary Heaton RN [facility] Work Phone: 03-15-2016 09:06-0400 Height 167.64 cm Cary Heaton RN [facility] Work Phone: 03-15-2016 09:06-0400 Pulse (Heart Rate) 81 /min Cary Heaton RN [facility] Work Phone: Comment on above: Pattern: Regular 03-15-2016 09:06-0400 Pulse Oximetry 97 % May Alicia [facility] Work Phone: Comment on above: Room air 03-15-2016 09:06-0400 Respiratory Rate 18 /min Cary Heaton RN [facility] Work Phone: Comment on above: Pattern: Unlabored 03-15-2016 09:06-0400 SaO2% (BldA) [Mass fraction] 97 % Cary Heaton RN [facility]; [facility] Work Phone: Comment on above: Room air 09-06-2015 08:32-0400 BMI (Body Mass Index) 39.87 kg/m2 Amber Mohsenrb [facility] Work Phone: 09-06-2015 08:32-0400 Body Temperature 97.1 [degF] Amber Mohsenrb [facility] Work Phone: 09-06-2015 08:32-0400 Body weight 112.04 kg Amber Mohsenrb [facility] Work Phone: 09-06-2015 08:32-0400 BP Diastolic 82 mm[Hg] Amber Slarb [facility] Work Phone: Comment on above: Patient Position: Sitting; Cuff Location : Left Arm; Cuff Size: Standard 09-06-2015 08:32-0400 BP Systolic 124 mm[Hg] Amber Slarb PROJECTION TECHNICIAN [facility] Work Phone: Comment on above: Patient Position: Sitting; Cuff Location : Left Arm; Cuff Size: Standard 09-06-2015 08:32-0400 BSA (Body Surface Area) 2.19 m2 Amber Slarb PROJECTION TECHNICIAN [facility] Work Phone: 09-06-2015 08:32-0400 Height 167.64 cm Amber Slarb PROJECTION TECHNICIAN [facility] Work Phone: 09-06-2015 08:32-0400 Pulse (Heart Rate) 107 /min Amber Slarb PROJECTION TECHNICIAN [facility] Work Phone: Comment on above: Pattern: Regular 09-06-2015 08:32-0400 Pulse Oximetry 99 % May Alicia [facility] Work Phone: Comment on above: Room air 09-06-2015 08:32-0400 Respiratory Rate 17 /min Amber Slarb PROJECTION TECHNICIAN [facility] Work Phone: Comment on above: Pattern: Unlabored 09-06-2015 08:32-0400 SaO2% (BldA) [Mass fraction] 99 % Amber Slarb PROJECTION TECHNICIAN [facility]; [facility] Work Phone: Comment on above: Room air 08-22-2015 10:12-0400 BMI (Body Mass Index) 39.89 kg/m2 Amber Slarb PROJECTION TECHNICIAN [facility] Work Phone: 08-22-2015 10:12-0400 Body Temperature 97.7 [degF] Amber Slarb PROJECTION TECHNICIAN [facility] Work Phone: 08-22-2015 10:12-0400 Body weight 112.1 kg Amber Slarb PROJECTION TECHNICIAN [facility] Work Phone: 08-22-2015 10:12-0400 BP Diastolic 90 mm[Hg] Amber Slarb PROJECTION TECHNICIAN [facility] Work Phone: Comment on above: Patient Position: Sitting; Cuff Location : Left Arm; Cuff Size: Standard 08-22-2015 10:12-0400 BP Systolic 138 mm[Hg] Amber Slarb PROJECTION TECHNICIAN [facility] Work Phone: Comment on above: Patient Position: Sitting; Cuff Location : Left Arm; Cuff Size: Standard 08-22-2015 10:12-0400 BSA (Body Surface Area) 2.19 m2 Amber Slarb PROJECTION TECHNICIAN [facility] Work Phone: 08-22-2015 10:12-0400 Height 167.64 cm Amber Slarb PROJECTION TECHNICIAN [facility] Work Phone: 08-22-2015 10:12-0400 Pulse (Heart Rate) 120 /min Amber Slarb PROJECTION TECHNICIAN [facility] Work Phone: Comment on above: Pattern: Regular 08-22-2015 10:12-0400 Pulse Oximetry 95 % May Alicia [facility] Work Phone: Comment on above: Room air 08-22-2015 10:12-0400 Respiratory Rate 18 /min Amber Slarb PROJECTION TECHNICIAN [facility] Work Phone: Comment on above: Pattern: Unlabored 08-22-2015 10:12-0400 SaO2% (BldA) [Mass fraction] 95 % Amber Slarb PROJECTION TECHNICIAN [facility]; [facility] Work Phone: Comment on above: Room air 08-15-2015 11:19-0400 BMI (Body Mass Index) 39.14 kg/m2 Amber Slarb PROJECTION TECHNICIAN [facility] Work Phone: 08-15-2015 11:19-0400 Body Temperature 97.7 [degF] Amber Slarb PROJECTION TECHNICIAN [facility] Work Phone: 08-15-2015 11:19-0400 Body weight 110 kg Amber Slarb PROJECTION TECHNICIAN [facility] Work Phone: 08-15-2015 11:19-0400 BP Diastolic 78 mm[Hg] Amber Slarb PROJECTION TECHNICIAN [facility] Work Phone: Comment on above: Patient Position: Sitting; Cuff Location : Left Arm; Cuff Size: Standard 08-15-2015 11:19-0400 BP Systolic 116 mm[Hg] Amber Slarb PROJECTION TECHNICIAN [facility] Work Phone: Comment on above: Patient Position: Sitting; Cuff Location : Left Arm; Cuff Size: Standard 08-15-2015 11:19-0400 BSA (Body Surface Area) 2.17 m2 Amber Astorga LPN [facility] Work Phone: 08-15-2015 11:19-0400 Height 167.64 cm Amber Astorga LPN [facility] Work Phone: 08-15-2015 11:19-0400 Pulse (Heart Rate) 130 /min Amber Astorga LPN [facility] Work Phone: Comment on above: Pattern: Regular 08-15-2015 11:19-0400 Pulse Oximetry 97 % May Alicia [facility] Work Phone: Comment on above: Room air 08-15-2015 11:19-0400 Respiratory Rate 16 /min Amber Astorga LPN [facility] Work Phone: Comment on above: Pattern: Unlabored 08-15-2015 11:19-0400 SaO2% (BldA) [Mass fraction] 97 % Amber Astorga LPN [facility]; [facility] Work Phone: Comment on above: Room air 09-15-2014 15:47-0400 BMI (Body Mass Index) 39.14 kg/m2 [facility] Work Phone: 09-15-2014 15:47-0400 Body Temperature 97.9 [degF] [facility] Work Phone: Comment on above: Method: Oral 09-15-2014 15:47-0400 Body weight 110 [facility] Work Phone: 09-15-2014 15:47-0400 BP Diastolic 78 mm[Hg] [facility] Work Phone: Comment on above: Patient Position: Sitting; Cuff Location : Left Arm; Cuff Size: Standard 09-15-2014 15:47-0400 BP Systolic 116 mm[Hg] [facility] Work Phone: Comment on above: Patient Position: Sitting; Cuff Location : Left Arm; Cuff Size: Standard 09-15-2014 15:47-0400 BSA (Body Surface Area) 2.17 m2 Baylee Davis [facility] Work Phone: 09-15-2014 15:47-0400 Height 167.64 cm Baylee Davis [facility] Work Phone: 09-15-2014 15:47-0400 Pulse (Heart Rate) 91 /min Baylee Davis [facility] Work Phone: Comment on above: Pattern: Regular 09-15-2014 15:47-0400 Pulse Oximetry 98 % May Alicia [facility] Work Phone: Comment on above: Room air 09-15-2014 15:47-0400 Respiratory Rate 18 /min Baylee Davis [facility] Work Phone: Comment on above: Pattern: Unlabored 09-15-2014 15:47-0400 SaO2% (BldA) [Mass fraction] 98 % Baylee Davis [facility]; [facility] Work Phone: Comment on above: Room air 08-10-2014 13:53-0400 BMI (Body Mass Index) 37.69 kg/m2 Lisset Desmond [facility] Work Phone: 08-10-2014 13:53-0400 Body Temperature 98.6 [degF] Lissettalib Logan LPN [facility] Work Phone: Comment on above: Method: Oral 08-10-2014 13:53-0400 Body weight 105.92 kg Lisset Desmond [facility] Work Phone: 08-10-2014 13:53-0400 BP Diastolic 84 mm[Hg] Lisset Logan LPN [facility] Work Phone: Comment on above: Patient Position: Sitting; Cuff Location : Left Arm; Cuff Size: Standard 08-10-2014 13:53-0400 BP Systolic 144 mm[Hg] Lissettalib Logan LPN [facility] Work Phone: Comment on above: Patient Position: Sitting; Cuff Location : Left Arm; Cuff Size: Standard 08-10-2014 13:53-0400 BSA (Body Surface Area) 2.14 m2 Lisset Logan LPN [facility] Work Phone: 08-10-2014 13:53-0400 Height 167.64 cm Lisset Logan [facility] Work Phone: 08-10-2014 13:53-0400 Pulse (Heart Rate) 100 /min Lisset Logan LPN [facility] Work Phone: Comment on above: Pattern: Regular 08-10-2014 13:53-0400 Pulse Oximetry 98 % May Alicia [facility] Work Phone: Comment on above: Room air 08-10-2014 13:53-0400 Respiratory Rate 16 /min Lisset Logan [facility] Work Phone: 08-10-2014 13:53-0400 SaO2% (BldA) [Mass fraction] 98 % Lisset Logan [facility]; [facility] Work Phone: Comment on above: Room air 07-26-2014 15:31-0500 BMI (Body Mass Index) 37.69 kg/m2 Lisset Logan [facility] Work Phone: 07-26-2014 15:31-0500 Body Temperature 98.5 [degF] Lisset Logan LPN [facility] Work Phone: Comment on above: Method: Oral 07-26-2014 15:31-0500 Body weight 105.92 kg Lisset Logan [facility] Work Phone: 07-26-2014 15:31-0500 BP Diastolic 80 mm[Hg] Lisset Logan [facility] Work Phone: Comment on above: Patient Position: Sitting; Cuff Location : Left Arm; Cuff Size: Standard 07-26-2014 15:31-0500 BP Systolic 138 mm[Hg] Lisset Logan [facility] Work Phone: Comment on above: Patient Position: Sitting; Cuff Location : Left Arm; Cuff Size: Standard 07-26-2014 15:31-0500 BSA (Body Surface Area) 2.14 m2 Lisset Logan [facility] Work Phone: 07-26-2014 15:31-0500 Height 167.64 cm Lisset Logan [facility] Work Phone: 07-26-2014 15:31-0500 Pulse (Heart Rate) 88 /min Lisset Logan [facility] Work Phone: Comment on above: Pattern: Regular 07-26-2014 15:31-0500 Pulse Oximetry 99 % May Alicia [facility] Work Phone: Comment on above: Room air 07-26-2014 15:31-0500 Respiratory Rate 16 /min Lisset Logan [facility] Work Phone: 07-26-2014 15:31-0500 SaO2% (BldA) [Mass fraction] 99 % Lisset Desmond LOP[facility]; [facility] Work Phone: Comment on above: Room air 07-07-2014 08:35-0500 BMI (Body Mass Index) 37.69 kg/m2 Amber Astorga LPN [facility] Work Phone: 07-07-2014 08:35-0500 Body Temperature 96.3 [degF] Amber Astorga LPN [facility] Work Phone: 07-07-2014 08:35-0500 Body weight 105.92 kg Amber Astorga LPN [facility] Work Phone: 07-07-2014 08:35-0500 BP Diastolic 82 mm[Hg] Amber Astorga LPN [facility] Work Phone: Comment on above: Patient Position: Sitting; Cuff Location : Left Arm; Cuff Size: Standard 07-07-2014 08:35-0500 BP Systolic 122 mm[Hg] Amber Slarb PROJECTION TECHNICIAN [facility] Work Phone: Comment on above: Patient Position: Sitting; Cuff Location : Left Arm; Cuff Size: Standard 07-07-2014 08:35-0500 BSA (Body Surface Area) 2.14 m2 Amber Slarb PROJECTION TECHNICIAN [facility] Work Phone: 07-07-2014 08:35-0500 Height 167.64 cm Amber Slarb PROJECTION TECHNICIAN [facility] Work Phone: 07-07-2014 08:35-0500 Pulse (Heart Rate) 102 /min Amber Slarb PROJECTION TECHNICIAN [facility] Work Phone: Comment on above: Pattern: Regular 07-07-2014 08:35-0500 Pulse Oximetry 97 % May Alicia [facility] Work Phone: Comment on above: Room air 07-07-2014 08:35-0500 Respiratory Rate 18 /min Amber Slarb PROJECTION TECHNICIAN [facility] Work Phone: Comment on above: Pattern: Unlabored 07-07-2014 08:35-0500 SaO2% (BldA) [Mass fraction] 97 % Amber Slarb PROJECTION TECHNICIAN [facility]; [facility] Work Phone: Comment on above: Room air 06-22-2014 08:19-0500 BMI (Body Mass Index) 37.32 kg/m2 Amber Slarb PROJECTION TECHNICIAN [facility] Work Phone: 06-22-2014 08:19-0500 Body Temperature 97.3 [degF] Amber Slarb PROJECTION TECHNICIAN [facility] Work Phone: Comment on above: Method: Temporal 06-22-2014 08:19-0500 Body weight 104.89 kg Amber Slarb PROJECTION TECHNICIAN [facility] Work Phone: 06-22-2014 08:19-0500 BP Diastolic 78 mm[Hg] Amber Slarb PROJECTION TECHNICIAN [facility] Work Phone: Comment on above: Patient Position: Sitting; Cuff Location : Left Arm; Cuff Size: Standard 06-22-2014 08:19-0500 BP Systolic 122 mm[Hg] Amber Slarb PROJECTION TECHNICIAN [facility] Work Phone: Comment on above: Patient Position: Sitting; Cuff Location : Left Arm; Cuff Size: Standard 06-22-2014 08:19-0500 BSA (Body Surface Area) 2.13 m2 Amber Astorga LPN [facility] Work Phone: 06-22-2014 08:19-0500 Height 167.64 cm Amber Astorga LPN [facility] Work Phone: 06-22-2014 08:19-0500 Pulse (Heart Rate) 95 /min Amber Astorga LPN [facility] Work Phone: Comment on above: Pattern: Regular 06-22-2014 08:19-0500 Pulse Oximetry 97 % May Alicia [facility] Work Phone: Comment on above: Room air 06-22-2014 08:19-0500 Respiratory Rate 16 /min Amber Astorga LPN [facility] Work Phone: Comment on above: Pattern: Unlabored 06-22-2014 08:19-0500 SaO2% (BldA) [Mass fraction] 97 % Amber Astorga PROJECTION TECHNICIAN [facility]; [facility] Work Phone: Comment on above: Room air 06-10-2014 11:14-0500 BMI (Body Mass Index) 37 kg/m2 Cary Heaton RN [facility] Work Phone: 06-10-2014 11:14-0500 Body Temperature 100.5 [degF] Cary Heaton RN [facility] Work Phone: Comment on above: Method: Oral 06-10-2014 11:14-0500 Body weight 103.99 kg Cary Heaton RN [facility] Work Phone: 06-10-2014 11:14-0500 BP Diastolic 90 mm[Hg] Cary Heaton RN [facility] Work Phone: Comment on above: Patient Position: Sitting; Cuff Location : Left Arm; Cuff Size: Large 06-10-2014 11:14-0500 BP Systolic 138 mm[Hg] Cary Heaton RN [facility] Work Phone: Comment on above: Patient Position: Sitting; Cuff Location : Left Arm; Cuff Size: Large 06-10-2014 11:14-0500 BSA (Body Surface Area) 2.12 m2 Cary Heaton RN [facility] Work Phone: 06-10-2014 11:14-0500 Height 167.64 cm Cary Heaton RN [facility] Work Phone: 06-10-2014 11:14-0500 Pulse (Heart Rate) 115 /min Cary Heaton RN [facility] Work Phone: Comment on above: Pattern: Regular 06-10-2014 11:14-0500 Pulse Oximetry 98 % May Alicia [facility] Work Phone: Comment on above: Room air 06-10-2014 11:14-0500 Respiratory Rate 20 /min Cary Heaton RN [facility] Work Phone: Comment on above: Pattern: Unlabored 06-10-2014 11:14-0500 SaO2% (BldA) [Mass fraction] 98 % Cary Heaton RN [facility]; [facility] Work Phone: Comment on above: Room air 05-03-2014 08:57-0500 BMI (Body Mass Index) 37 kg/m2 Lisset Logan LPN [facility] Work Phone: 05-03-2014 08:57-0500 Body Temperature 98.3 [degF] Lisset Logan LPN [facility] Work Phone: Comment on above: Method: Oral 05-03-2014 08:57-0500 Body weight 103.99 kg Lisset Logan LPN [facility] Work Phone: 05-03-2014 08:57-0500 BP Diastolic 80 mm[Hg] Lisset Logan LPN [facility] Work Phone: Comment on above: Patient Position: Sitting; Cuff Location : Left Arm; Cuff Size: Standard 05-03-2014 08:57-0500 BP Systolic 118 mm[Hg] Lisset Logan LPN [facility] Work Phone: Comment on above: Patient Position: Sitting; Cuff Location : Left Arm; Cuff Size: Standard 05-03-2014 08:57-0500 BSA (Body Surface Area) 2.12 m2 Lisset Logan [facility] Work Phone: 05-03-2014 08:57-0500 Height 167.64 cm Lisset Logan [facility] Work Phone: 05-03-2014 08:57-0500 Pulse (Heart Rate) 90 /min Lisset Logan [facility] Work Phone: Comment on above: Pattern: Regular 05-03-2014 08:57-0500 Pulse Oximetry 98 % May Eliseo [facility] Work Phone: Comment on above: Room air 05-03-2014 08:57-0500 Respiratory Rate 18 /min Lisset Logan [facility] Work Phone: 05-03-2014 08:57-0500 SaO2% (BldA) [Mass fraction] 98 % Lisset Desmond [facility]; [facility] Work Phone: Comment on above: Room air 04-05-2014 10:15-0500 BMI (Body Mass Index) 37 kg/m2 Cary Heaton RN [facility] Work Phone: 04-05-2014 10:15-0500 Body weight 103.99 kg Cary Heaton RN [facility] Work Phone: 04-05-2014 10:15-0500 BP Diastolic 72 mm[Hg] Cary Heaton RN [facility] Work Phone: Comment on above: Patient Position: Sitting; Cuff Location : Left Arm; Cuff Size: Large 04-05-2014 10:15-0500 BP Systolic 128 mm[Hg] Cary Heaton RN [facility] Work Phone: Comment on above: Patient Position: Sitting; Cuff Location : Left Arm; Cuff Size: Large 04-05-2014 10:15-0500 BSA (Body Surface Area) 2.12 m2 Cary Heaton RN [facility] Work Phone: 04-05-2014 10:15-0500 Height 167.64 cm Cary Heaton RN [facility] Work Phone: 04-05-2014 10:15-0500 Pulse (Heart Rate) 87 /min Cary Heaton RN [facility] Work Phone: Comment on above: Pattern: Regular 04-05-2014 10:15-0500 Pulse Oximetry 98 % May Alicia [facility] Work Phone: Comment on above: Room air 04-05-2014 10:15-0500 Respiratory Rate 18 /min Cary Heaton RN [facility] Work Phone: Comment on above: Pattern: Unlabored 04-05-2014 10:15-0500 SaO2% (BldA) [Mass fraction] 98 % Cary Heaton RN [facility]; [facility] Work Phone: Comment on above: Room air 03-24-2014 07:34-0400 BMI (Body Mass Index) 37.36 kg/m2 Cary Heaton RN [facility] Work Phone: 03-24-2014 07:34-0400 Body weight 105.01 kg Cary Heaton RN [facility] Work Phone: 03-24-2014 07:34-0400 BP Diastolic 82 mm[Hg] Cary Heaton RN [facility] Work Phone: Comment on above: Patient Position: Sitting; Cuff Location : Left Arm; Cuff Size: Large 03-24-2014 07:34-0400 BP Systolic 124 mm[Hg] Cary Heaton RN [facility] Work Phone: Comment on above: Patient Position: Sitting; Cuff Location : Left Arm; Cuff Size: Large 03-24-2014 07:34-0400 BSA (Body Surface Area) 2.13 m2 Cary Heaton RN [facility] Work Phone: 03-24-2014 07:34-0400 Height 167.64 cm Cary Heaton RN [facility] Work Phone: 03-24-2014 07:34-0400 Pulse (Heart Rate) 99 /min Cary Heaton RN [facility] Work Phone: Comment on above: Pattern: Regular 03-24-2014 07:34-0400 Pulse Oximetry 98 % May Alicia [facility] Work Phone: Comment on above: Room air 03-24-2014 07:34-0400 Respiratory Rate 18 /min Cary Heaton RN [facility] Work Phone: Comment on above: Pattern: Unlabored 03-24-2014 07:34-0400 SaO2% (BldA) [Mass fraction] 98 % Cary Heaton RN [facility]; [facility] Work Phone: Comment on above: Room air 02-19-2014 08:13-0400 BMI (Body Mass Index) 37.77 kg/m2 May Alicia [facility] Work Phone: 02-19-2014 08:13-0400 Body Temperature 98.1 [degF] May Alicia [facility] Work Phone: Comment on above: Method: Oral 02-19-2014 08:13-0400 Body weight 106.14 kg May Alicia [facility] Work Phone: 02-19-2014 08:13-0400 BP Diastolic 78 mm[Hg] May Alicia [facility] Work Phone: Comment on above: Patient Position: Sitting; Cuff Location : Left Arm; Cuff Size: Large 02-19-2014 08:13-0400 BP Systolic 110 mm[Hg] May Alicia [facility] Work Phone: Comment on above: Patient Position: Sitting; Cuff Location : Left Arm; Cuff Size: Large 02-19-2014 08:13-0400 BSA (Body Surface Area) 2.14 m2 May Alicia [facility] Work Phone: 02-19-2014 08:13-0400 Height 167.64 cm Mayamelie Alicia [facility] Work Phone: 02-19-2014 08:13-0400 Pulse (Heart Rate) 80 /min May Alicia [facility] Work Phone: Comment on above: Pattern: Regular 02-19-2014 08:13-0400 Pulse Oximetry 97 % May Alicia [facility] Work Phone: Comment on above: Room air 02-19-2014 08:13-0400 Respiratory Rate 18 /min May Alicia [facility] Work Phone: Comment on above: Pattern: Unlabored 02-19-2014 08:13-0400 SaO2% (BldA) [Mass fraction] 97 % May Alicia DO Work Phone: [facility]; [facility] Work Phone: Comment on above: Room air 02-05-2014 14:28-0400 BMI (Body Mass Index) 37.03 kg/m2 Cary Heaton RN [facility] Work Phone: 02-05-2014 14:28-0400 Body weight 104.07 kg Cary Heaton RN [facility] Work Phone: 02-05-2014 14:28-0400 BP Diastolic 78 mm[Hg] Cary Heaton RN [facility] Work Phone: Comment on above: Patient Position: Sitting; Cuff Location : Left Arm; Cuff Size: Large 02-05-2014 14:28-0400 BP Systolic 118 mm[Hg] Cary Heaton RN [facility] Work Phone: Comment on above: Patient Position: Sitting; Cuff Location : Left Arm; Cuff Size: Large 02-05-2014 14:28-0400 BSA (Body Surface Area) 2.12 m2 Cary Heaton RN [facility] Work Phone: 02-05-2014 14:28-0400 Height 167.64 cm Cary Heaton RN [facility] Work Phone: 02-05-2014 14:28-0400 Pulse (Heart Rate) 96 /min aCry Heaton RN [facility] Work Phone: Comment on above: Pattern: Regular 02-05-2014 14:28-0400 Pulse Oximetry 98 % May Alicia [facility] Work Phone: Comment on above: Room air 02-05-2014 14:28-0400 Respiratory Rate 18 /min Cary Heaton RN [facility] Work Phone: Comment on above: Pattern: Unlabored 02-05-2014 14:28-0400 SaO2% (BldA) [Mass fraction] 98 % Cary Heaton RN [facility]; [facility] Work Phone: Comment on above: Room air 01-25-2014 08:23-0400 BMI (Body Mass Index) 40.67 kg/m2 Lisset Desmond [facility] Work Phone: 01-25-2014 08:23-0400 Body Temperature 97.3 [degF] Lisset Logan [facility] Work Phone: Comment on above: Method: Oral 01-25-2014 08:23-0400 Body weight 114.31 kg Lisset Desmond [facility] Work Phone: 01-25-2014 08:23-0400 BP Diastolic 80 mm[Hg] Lisset Desmond [facility] Work Phone: Comment on above: Patient Position: Sitting; Cuff Location : Left Arm; Cuff Size: Standard 01-25-2014 08:23-0400 BP Systolic 132 mm[Hg] Lisset Logan [facility] Work Phone: Comment on above: Patient Position: Sitting; Cuff Location : Left Arm; Cuff Size: Standard 01-25-2014 08:23-0400 BSA (Body Surface Area) 2.21 m2 Lisset Logan [facility] Work Phone: 01-25-2014 08:23-0400 Height 167.64 cm Lisset Desmond [facility] Work Phone: 01-25-2014 08:23-0400 Pulse (Heart Rate) 94 /min Lisset Logan [facility] Work Phone: Comment on above: Pattern: Regular 01-25-2014 08:23-0400 Pulse Oximetry 97 % May Alicia [facility] Work Phone: Comment on above: Room air 01-25-2014 08:23-0400 Respiratory Rate 18 /min Lisset Logan LPN [facility] Work Phone: 01-25-2014 08:23-0400 SaO2% (BldA) [Mass fraction] 97 % Lisset Logan PROJECTION TECHNICIAN [facility]; [facility] Work Phone: Comment on above: Room air 03-09-2013 10:02-0400 BMI (Body Mass Index) 40.67 kg/m2 Lisset Logan [facility] Work Phone: 03-09-2013 10:02-0400 Body Temperature 98 [degF] Lisset Logan LPN [facility] Work Phone: Comment on above: Method: Oral 03-09-2013 10:02-0400 Body weight 114.31 kg Lisset Logan LPN [facility] Work Phone: 03-09-2013 10:02-0400 BP Diastolic 84 mm[Hg] Lisset Logan MOS[facility] Work Phone: Comment on above: Patient Position: Sitting; Cuff Location : Left Arm; Cuff Size: Standard 03-09-2013 10:02-0400 BP Systolic 128 mm[Hg] Lisset Logan LPN [facility] Work Phone: Comment on above: Patient Position: Sitting; Cuff Location : Left Arm; Cuff Size: Standard 03-09-2013 10:02-0400 BSA (Body Surface Area) 2.21 m2 Lisset Logan LPN [facility] Work Phone: 03-09-2013 10:02-0400 Height 167.64 cm Lisset Logan LPN [facility] Work Phone: 03-09-2013 10:02-0400 Pulse (Heart Rate) 106 /min Lisset Logan LPN [facility] Work Phone: Comment on above: Pattern: Regular 03-09-2013 10:02-0400 Pulse Oximetry 98 % May Alicia [facility] Work Phone: Comment on above: Room air 03-09-2013 10:02-0400 Respiratory Rate 18 /min Lisset Logan LPN [facility] Work Phone: 03-09-2013 10:02-0400 SaO2% (BldA) [Mass fraction] 98 % Lisset Logan [facility]; [facility] Work Phone: Comment on above: Room air 03-03-2013 10:36-0400 BMI (Body Mass Index) 40.67 kg/m2 Lisset Logan [facility] Work Phone: 03-03-2013 10:36-0400 Body Temperature 97 [degF] Lisset Logan LPN [facility] Work Phone: Comment on above: Method: Oral 03-03-2013 10:36-0400 Body weight 114.31 kg Lisset Logan [facility] Work Phone: 03-03-2013 10:36-0400 BP Diastolic 70 mm[Hg] Lisset Logan [facility] Work Phone: Comment on above: Patient Position: Sitting; Cuff Location : Left Arm; Cuff Size: Standard 03-03-2013 10:36-0400 BP Systolic 120 mm[Hg] Lisset Logan [facility] Work Phone: Comment on above: Patient Position: Sitting; Cuff Location : Left Arm; Cuff Size: Standard 03-03-2013 10:36-0400 BSA (Body Surface Area) 2.21 m2 Lisset Logan [facility] Work Phone: 03-03-2013 10:36-0400 Height 167.64 cm Lisset Logan LPN [facility] Work Phone: 03-03-2013 10:36-0400 Pulse (Heart Rate) 110 /min Lisset Logan LPN [facility] Work Phone: Comment on above: Pattern: Regular 03-03-2013 10:36-0400 Respiratory Rate 18 /min Lisset Logan LPN [facility] Work Phone: 02-27-2013 12:07-0400 BMI (Body Mass Index) 40.67 kg/m2 Lisset Logan LPN [facility] Work Phone: 02-27-2013 12:07-0400 Body Temperature 98 [degF] Lisset Logan LPN [facility] Work Phone: Comment on above: Method: Oral 02-27-2013 12:07040 Body weight 114.31 kg Lisset Logan LPN [facility] Work Phone: 02-27-2013 12:07-0400 BP Diastolic 70 mm[Hg] Lisset Logan LPN [facility] Work Phone: Comment on above: Patient Position: Sitting; Cuff Location : Left Arm; Cuff Size: Standard 02-27-2013 12:07-0400 BP Systolic 126 mm[Hg] Lisset Logan LPN [facility] Work Phone: Comment on above: Patient Position: Sitting; Cuff Location : Left Arm; Cuff Size: Standard 02-27-2013 12:07-0400 BSA (Body Surface Area) 2.21 m2 Lisset Logan LPN [facility] Work Phone: 02-27-2013 12:07-0400 Height 167.64 cm Lisset Logan LPN [facility] Work Phone: 02-27-2013 12:07-0400 Pulse (Heart Rate) 96 /min Lisset Logan LPN [facility] Work Phone: Comment on above: Pattern: Regular 02-27-2013 12:07-0400 Pulse Oximetry 98 % May Eliseo [facility] Work Phone: Comment on above: Room air 02-27-2013 12:07-0400 Respiratory Rate 18 /min Lisset Logan LPN [facility] Work Phone: 02-27-2013 12:07-0400 SaO2% (BldA) [Mass fraction] 98 % Lisset Logan LPN [facility]; [facility] Work Phone: Comment on above: Room air 02-25-2013 13:27-0400 BMI (Body Mass Index) 40.67 kg/m2 [facility] Work Phone: 02-25-2013 13:27-0400 Body Temperature 99.9 [degF] Baylee [facility] Work Phone: Comment on above: Method: Oral 02-25-2013 13:27-0400 Body weight 114.31 kg [facility] Work Phone: 02-25-2013 13:27-0400 BP Diastolic 82 mm[Hg] Baylee [facility] Work Phone: Comment on above: Patient Position: Sitting; Cuff Location : Left Arm; Cuff Size: Standard 02-25-2013 13:27-0400 BP Systolic 116 mm[Hg] Baylee [facility] Work Phone: Comment on above: Patient Position: Sitting; Cuff Location : Left Arm; Cuff Size: Standard 02-25-2013 13:27-0400 BSA (Body Surface Area) 2.21 m2 Baylee [facility] Work Phone: 02-25-2013 13:27-0400 Height 167.64 cm Baylee [facility] Work Phone: 02-25-2013 13:27-0400 Pulse (Heart Rate) 105 /min Baylee [facility] Work Phone: Comment on above: Pattern: Regular 02-25-2013 13:27-0400 Pulse Oximetry 98 % May Alicia [facility] Work Phone: Comment on above: Room air 02-25-2013 13:27-0400 Respiratory Rate 18 /min Baylee [facility] Work Phone: Comment on above: Pattern: Unlabored 02-25-2013 13:27-0400 SaO2% (BldA) [Mass fraction] 98 % Bayleemariana Davis [facility]; [facility] Work Phone: Comment on above: Room air 01-29-2013 08:02-0400 BMI (Body Mass Index) 41 kg/m2 Sri Otero RN [facility] Work Phone: 01-29-2013 08:02-0400 Body Temperature 97.4 [degF] Sri Otero RN [facility] Work Phone: Comment on above: Method: Temporal 01-29-2013 08:02-0400 Body weight 115.21 kg Sri Otero RN [facility] Work Phone: 01-29-2013 08:02-0400 BP Diastolic 72 mm[Hg] Sri Otero RN [facility] Work Phone: Comment on above: Patient Position: Sitting; Cuff Location : Left Arm; Cuff Size: Standard 01-29-2013 08:02-0400 BP Systolic 122 mm[Hg] Sri Otero RN [facility] Work Phone: Comment on above: Patient Position: Sitting; Cuff Location : Left Arm; Cuff Size: Standard 01-29-2013 08:02-0400 BSA (Body Surface Area) 2.21 m2 Sri Otero RN [facility] Work Phone: 01-29-2013 08:02-0400 Height 167.64 cm Sri Otero RN [facility] Work Phone: 01-29-2013 08:02-0400 Pulse (Heart Rate) 115 /min Sri Otero RN [facility] Work Phone: Comment on above: Pattern: Regular 01-29-2013 08:02-0400 Pulse Oximetry 98 % May Eliseo [facility] Work Phone: Comment on above: Room air 01-29-2013 08:02-0400 Respiratory Rate 16 /min Sri Otero RN [facility] Work Phone: Comment on above: Pattern: Unlabored 01-29-2013 08:02-0400 SaO2% (BldA) [Mass fraction] 98 % Sri Otero RN [facility]; [facility] Work Phone: Comment on above: Room air 12-25-2012 09:16-0400 BMI (Body Mass Index) 39.56 kg/m2 Cary Heaton RN [facility] Work Phone: 12-25-2012 09:16-0400 Body Temperature 97.8 [degF] Cary Heaton RN Comprehens[facility] Work Phone: Comment on above: Method: Oral 12-25-2012 09:16-0400 Body weight 111.19 kg Cary Heaton RN [facility] Work Phone: 12-25-2012 09:16-0400 BP Diastolic 74 mm[Hg] Cary Heaton RN [facility] Work Phone: Comment on above: Patient Position: Sitting; Cuff Location : Left Arm; Cuff Size: Large 12-25-2012 09:16-0400 BP Systolic 126 mm[Hg] Cary Heaton RN [facility] Work Phone: Comment on above: Patient Position: Sitting; Cuff Location : Left Arm; Cuff Size: Large 12-25-2012 09:16-0400 BSA (Body Surface Area) 2.18 m2 Cary Heaton RN [facility] Work Phone: 12-25-2012 09:16-0400 Height 167.64 cm Cary Heaton RN [facility] Work Phone: 12-25-2012 09:16-0400 Pulse (Heart Rate) 112 /min Cary Heaton RN [facility] Work Phone: Comment on above: Pattern: Regular 12-25-2012 09:16-0400 Respiratory Rate 16 /min Cary Heaton RN [facility] Work Phone: Comment on above: Pattern: Unlabored 12-03-2012 11:46-0400 BMI (Body Mass Index) 39.56 kg/m2 Cary Heaton RN [facility] Work Phone: 12-03-2012 11:46-0400 Body Temperature 99.6 [degF] Cary Heaton RN [facility] Work Phone: Comment on above: Method: Oral 12-03-2012 11:46-0400 Body weight 111.19 kg Cary Heaton RN [facility] Work Phone: 12-03-2012 11:46-0400 BP Diastolic 82 mm[Hg] Cary Heaton RN [facility] Work Phone: Comment on above: Patient Position: Sitting; Cuff Location : Left Arm; Cuff Size: Large 12-03-2012 11:46-0400 BP Systolic 138 mm[Hg] Cary Heaton RN [facility] Work Phone: Comment on above: Patient Position: Sitting; Cuff Location : Left Arm; Cuff Size: Large 12-03-2012 11:46-0400 BSA (Body Surface Area) 2.18 m2 Cary Heaton RN [facility] Work Phone: 12-03-2012 11:46-0400 Height 167.64 cm Cary Heaton RN [facility] Work Phone: 12-03-2012 11:46-0400 Pulse (Heart Rate) 68 /min Cary Heaton RN [facility] Work Phone: Comment on above: Pattern: Regular 12-03-2012 11:46-0400 Respiratory Rate 20 /min Cary Heaton RN [facility] Work Phone: Comment on above: Pattern: Unlabored 11-18-2012 12:13-0400 BMI (Body Mass Index) 39.38 kg/m2 Greta Hammer [facility] Work Phone: 11-18-2012 12:13-0400 Body Temperature 99.4 [degF] Greta Hammer [facility] Work Phone: 11-18-2012 12:13-0400 Body weight 110.68 kg Greta Hammer [facility] Work Phone: 11-18-2012 12:13-0400 BP Diastolic 76 mm[Hg] Greta Hammer [facility] Work Phone: Comment on above: Patient Position: Sitting; Cuff Location : Left Arm; Cuff Size: Standard 11-18-2012 12:13-0400 BP Systolic 110 mm[Hg] Greta Menadanielle [facility] Work Phone: Comment on above: Patient Position: Sitting; Cuff Location : Left Arm; Cuff Size: Standard 11-18-2012 12:13-0400 BSA (Body Surface Area) 2.18 m2 Greta Menadanielle [facility] Work Phone: 11-18-2012 12:13-0400 Height 167.64 cm Greta Menadanielle [facility] Work Phone: 11-18-2012 12:13-0400 Pulse (Heart Rate) 94 /min Greta Menadanielle [facility] Work Phone: Comment on above: Pattern: Regular 11-18-2012 12:13-0400 Respiratory Rate 16 /min Greta Jaquelin [facility] Work Phone: Comment on above: Pattern: Unlabored 04-14-2012 09:27-0500 BMI (Body Mass Index) 38.92 kg/m2 Cary Heaton RN [facility] Work Phone: 04-14-2012 09:27-0500 Body Temperature 98.2 [degF] Cary Heaton RN [facility] Work Phone: Comment on above: Method: Oral 04-14-2012 09:27-0500 Body weight 109.37 kg Cary Heaton RN [facility] Work Phone: 04-14-2012 09:27-0500 BP Diastolic 88 mm[Hg] Cary Heaton RN [facility] Work Phone: Comment on above: Patient Position: Sitting; Cuff Location : Left Arm; Cuff Size: Large 04-14-2012 09:27-0500 BP Systolic 138 mm[Hg] Cary Heaton RN [facility] Work Phone: Comment on above: Patient Position: Sitting; Cuff Location : Left Arm; Cuff Size: Large 04-14-2012 09:27-0500 BSA (Body Surface Area) 2.17 m2 Cary Heaton RN [facility] Work Phone: 04-14-2012 09:27-0500 Height 167.64 cm Cary Heaton RN [facility] Work Phone: 04-14-2012 09:27-0500 Pulse (Heart Rate) 80 /min Cary Heaton RN [facility] Work Phone: Comment on above: Pattern: Regular 04-14-2012 09:27-0500 Respiratory Rate 16 /min Cary Heaton RN [facility] Work Phone: Comment on above: Pattern: Unlabored 04-02-2012 09:44-0400 BMI (Body Mass Index) 39.22 kg/m2 Cary Heaton RN [facility] Work Phone: 04-02-2012 09:44-0400 Body Temperature 98.4 [degF] Cary Heaton RN [facility] Work Phone: Comment on above: Method: Oral 04-02-2012 09:44-0400 Body weight 110.22 kg Cary Heaton RN [facility] Work Phone: 04-02-2012 09:44-0400 BP Diastolic 98 mm[Hg] Cary Heaton RN [facility] Work Phone: Comment on above: Patient Position: Sitting; Cuff Location : Left Arm; Cuff Size: Large 04-02-2012 09:44-0400 BP Systolic 148 mm[Hg] Cary Heaton RN [facility] Work Phone: Comment on above: Patient Position: Sitting; Cuff Location : Left Arm; Cuff Size: Large 04-02-2012 09:44-0400 BSA (Body Surface Area) 2.17 m2 Cary Heaton RN [facility] Work Phone: 04-02-2012 09:44-0400 Height 167.64 cm Cary Heaton RN [facility] Work Phone: 04-02-2012 09:44-0400 Pulse (Heart Rate) 80 /min Cary Heaton RN [facility] Work Phone: Comment on above: Pattern: Regular 04-02-2012 09:44-0400 Respiratory Rate 20 /min Cary Heaton RN [facility] Work Phone: Comment on above: Pattern: Unlabored 03-30-2011 13:110400 BMI (Body Mass Index) 40.2 kg/m2 Lisset Logan LPN [facility] Work Phone: 03-30-2011 13:110400 Body Temperature 99.1 [degF] Lisset Logan LPN [facility] Work Phone: Comment on above: Method: Oral 03-30-2011 13:040 Body weight 112.97 kg Lisset Logan LPN [facility] Work Phone: 03-30-2011 13:110400 BP Diastolic 78 mm[Hg] Lisset Logan LPN [facility] Work Phone: Comment on above: Patient Position: Sitting; Cuff Location : Left Arm; Cuff Size: Standard 03-30-2011 13:110400 BP Systolic 122 mm[Hg] Lisset Logan LPN [facility] Work Phone: Comment on above: Patient Position: Sitting; Cuff Location : Left Arm; Cuff Size: Standard 03-30-2011 13:0400 BSA (Body Surface Area) 2.2 m2 Lisset Logan LPN [facility] Work Phone: 03-30-2011 13:11040 Height 167.64 cm Lisset Logan LPN [facility] Work Phone: 03-30-2011 13:110400 Pulse (Heart Rate) 82 /min Lisset Logan LPN [facility] Work Phone: Comment on above: Pattern: Regular 03-30-2011 13:0400 Respiratory Rate 17 /min Lisset Logan LPN [facility] Work Phone: Comment on above: Pattern: Unlabored 03-13-2010 15:-0400 BMI (Body Mass Index) 40.2 kg/m2 Cary Heaton RN [facility] Work Phone: 03-13-2010 15:0400 Body weight 112.97 kg Cary Heaton RN [facility] Work Phone: 03-13-2010 15:22-0400 BP Diastolic 82 mm[Hg] Cary Heaton RN [facility] Work Phone: Comment on above: Patient Position: Sitting; Cuff Location : Left Arm; Cuff Size: Large 03-13-2010 15:22-0400 BP Systolic 124 mm[Hg] Cary Heaton RN [facility] Work Phone: Comment on above: Patient Position: Sitting; Cuff Location : Left Arm; Cuff Size: Large 03-13-2010 15:22-0400 BSA (Body Surface Area) 2.2 m2 Cary Heaton RN [facility] Work Phone: 03-13-2010 15:22-0400 Height 167.64 cm Cary Heaton RN [facility] Work Phone: 03-13-2010 15:22-0400 Pulse (Heart Rate) 76 /min Cary Heaton RN [facility] Work Phone: Comment on above: Pattern: Regular 03-13-2010 15:22-0400 Respiratory Rate 20 /min Cary Heaton RN [facility] Work Phone: Comment on above: Pattern: Unlabored 02-22-2010 15:07-0400 BMI (Body Mass Index) 40.42 kg/m2 Lisset Logan LPN [facility] Work Phone: 02-22-2010 15:07-0400 Body Temperature 98.6 [degF] Lisset Logan LPN [facility] Work Phone: Comment on above: Method: Oral 02-22-2010 15:07-0400 Body weight 113.6 kg Lisset Logan LPN [facility] Work Phone: 02-22-2010 15:07-0400 BP Diastolic 82 mm[Hg] Lisset Logan LPN [facility] Work Phone: Comment on above: Patient Position: Sitting; Cuff Location : Left Arm; Cuff Size: Standard 02-22-2010 15:07-0400 BP Systolic 124 mm[Hg] Lisset Logan LPN [facility] Work Phone: Comment on above: Patient Position: Sitting; Cuff Location : Left Arm; Cuff Size: Standard 02-22-2010 15:07-0400 BSA (Body Surface Area) 2.2 m2 Lisset Desmond [facility] Work Phone: 02-22-2010 15:07-0400 Height 167.64 cm Lisset Desmond [facility] Work Phone: 02-22-2010 15:07-0400 Pulse (Heart Rate) 76 /min Lisset Logan [facility] Work Phone: Comment on above: Pattern: Regular 02-22-2010 15:07-0400 Respiratory Rate 16 /min Lisset Logan [facility] Work Phone: Comment on above: Pattern: Unlabored Encounters Encounter Date Encounter Type Care Provider Facility Start: 01-04-2025 End: 01-04-2025 Patient encounter procedure Valentin Whitmore DO -[facility] Work Phone: Start: 01-04-2025 End: 01-04-[address] May Alicia DO Work Phone: [facility] Start: 11-04-2024 End: 11-04-2024 Patient encounter procedure Valentin Whitmore DO -[facility] Work Phone: Start: 11-04-2024 End: 11-04-[address] May Alicia DO Work Phone: [facility] Work Phone: Start: 08-05-2024 End: 08-05-[address] May Alicia DO Work Phone: [facility] Work Phone: Start: 08-05-2024 End: 08-05-[address] Greta Morse DO -Laboratory, Specimen Work Phone: Start: 08-05-2024 End: 08-05-[address] [facility] -[facility] Work Phone: Start: 08-05-2024 End: 08-05-2024 ambulatory May Alicia Facility:[facility] Start: 08-05-2024 End: 08-05-2024 ambulatory May Alicia Facility:[facility] Start: 07-30-2024 End: 07-30-2024 Patient encounter procedure Sana BILL -[facility] Work Phone: Start: 07-30-2024 End: 07-30-2024 ambulatory May Alicia Facility:[facility] Start: 07-29-2024 End: 07-29-[address] May Alicia DO Work Phone: [facility] Work Phone: Start: 07-29-2024 End: 07-29-2024 Patient encounter procedure Valentin Whitmore DO -MRI - [facility] Work Phone: Start: 07-29-2024 End: 07-29-2024 ambulatory Valentin Whitmore Facility:[facility] Start: 07-10-2024 End: 07-10-2024 Patient encounter procedure Sana BILL -Sleep Lab Work Phone: Start: 07-10-2024 End: 07-10-2024 ambulatory May Alicia Facility:[facility] Start: 07-06-2024 End: 07-06-2024 Patient encounter procedure Jennifer BILL -Ultrasound, [facility] Work Phone: Start: 07-06-2024 End: 07-06-2024 ambulatory May Alicia Facility:[facility] Start: 07-03-2024 End: 07-03-2024 Patient encounter procedure Sana BILL -[facility] Work Phone: Start: 07-03-2024 End: 07-03-2024 ambulatory May Alicia Facility:[facility] Start: 07-02-2024 End: 07-02-[address] May Alicia DO -Cat Scan, [facility] Work Phone: Start: 07-02-2024 End: 07-02-2024 ambulatory May Felipeon Facility:[facility] Start: 06-30-2024 Encounter for gynecological examination (general) (routine) with abnormal findings Jennifer Violeta NP [facility] Start: 06-30-2024 End: 06-30-2024 Patient encounter procedure Ramses WOODSON [facility] Work Phone: Start: 06-30-2024 End: 06-30-2024 ambulatory Ramses WOODSON Facility:[facility] Start: 06-29-2024 End: 06-29-2024 Patient encounter procedure Jennifer [place] NP-C -[facility] Work Phone: Start: 06-29-2024 End: 06-29-2024 Patient encounter status Jennifer Shreveport NP-C [facility] Start: 06-29-2024 End: 06-29-2024 ambulatory May Alicia Facility:[facility] Start: 06-24-2024 End: 06-24-2024 Patient encounter procedure Ramses WOODSON [facility] Work Phone: Start: 06-24-2024 End: 06-24-2024 ambulatory Ramses WOODSON Facility:[facility] Start: 06-19-2024 End: 06-19-2024 Patient encounter procedure Valentin Whitmore DO -[facility] Work Phone: Start: 06-19-2024 End: 06-19-2024 ambulatory May Felipeon Facility:[facility] Start: 05-20-2024 End: 05-20-2024 Patient encounter procedure Valentin Whitmore DO -Laboratory, Specimen Work Phone: Start: 05-20-2024 End: 05-20-2024 ambulatory Valentin Whitmore Facility:[facility] Start: 04-24-2024 End: 04-24-2024 Patient encounter procedure Valentin Whitmore DO -Cat Scan, [facility] Work Phone: Start: 04-24-2024 End: 04-24-2024 ambulatory Valentin Whitmore Facility:[facility] Start: 04-20-2024 End: 04-20-2024 Patient encounter procedure Valentin Whitmore DO -Laboratory Work Phone: Start: 04-20-2024 End: 04-20-2024 ambulatory Valentin Whitmore Facility:[facility] Start: 04-01-2024 ambulatory May Alicia Facilit y:[facility] Start: 02-10-2024 End: 02-10-2024 ambulatory Maycole Alicia Facility:[facility] Start: 09-24-2023 End: 09-24-[address] May Alicia Work Phone: [facility] Work Phone: Start: 09-24-2023 End: 09-24-[address] May Alicia Work Phone: [facility]-Laboratory Work Phone: Start: 06-25-2023 End: 06-25-[address] May Alicia Work Phone: [facility] Work Phone: Start: 06-25-2023 End: 06-25-[address] May Alicia Work Phone: [facility]-Laboratory, Specimen Work Phone: Start: 06-25-2023 End: 06-25-[address] May Alicia Work Phone: [facility] Work Phone: Start: 06-19-2023 End: 06-19-[address] May Alicia Work Phone: [facility] G[facility] Work Phone: Start: 06-17-2023 End: 06-17-[address] May Alicia Work Phone: [facility] Work Phone: Start: 06-17-2023 End: 06-17-[address] May Alicia Work Phone: [facility]-Laboratory, Specimen Work Phone: Start: 05-17-2023 End: 05-17-[address] [facility] Work Phone: Start: 05-17-2023 End: 05-17-2023 Patient encounter procedure [facility] Work Phone: Start: 04-02-2023 End: 04-02-[address] May Alciia Work Phone: [facility] Work Phone: Start: 04-02-2023 End: 04-02-[address] May Alicia Work Phone: [facility]-Nuclear Medicine, [facility] Work Phone: Start: 02-18-2023 Patient encounter status May Alicia DO Work Phone: [facility] Work Phone: Start: 02-18-2023 Review May combs DO Work Phone: [facility] Start: 02-15-[address] Jovita Alicia Work Phone: [facility] Start: 02-01-2023 End: 02-01-[address] May Alicia Work Phone: [facility] Work Phone: Start: 02-01-2023 End: 02-01-[address] May Alicia Work Phone: [facility] Work Phone: Start: 01-17-2023 End: 01-17-2023 Emergency department patient visit Dr. May Alicia Work Phone: [facility]-Emergency Department Work Phone: Start: 01-02-2023 End: 01-02-[address] May Alicia Work Phone: [facility] Work Phone: Start: 01-02-2023 End: 01-02-[address] May Alicia Work Phone: [facility]-Laboratory Work Phone: Start: 01-01-2023 End: 01-01-[address] May Alicia Work Phone: [facility] Work Phone: Start: 12-13-2022 Non-patient / Non-visit Dr. Jim Alicia Work Phone: [facility] Start: 12-13-2022 End: 12-13-2022 Admission to same day surgery center Dr. May Alicia Work Phone: [facility]-Endoscopy Work Phone: Start: 12-13-2022 End: 12-13-[address] May Alicia Work Phone: [facility] Work Phone: Start: 11-07-2022 End: 11-07-[address] May Alicia Work Phone: [facility] Work Phone: Start: 11-07-2022 End: 11-07-[address] May Alicia Work Phone: [facility]-Laboratory Start: 2022 End: [address] May Alicia Work Phone: [facility] Start: 06-26-2022 End: 06-26-[address] May Alicia Work Phone: [facility] Start: 06-24-2022 End: 06-24-[address] May Alicia Work Phone: [facility] Work Phone: Start: 06-24-2022 End: 06-24-[address] [facility] Start: 06-08-2022 End: 06-08-[address] May Alicia Work Phone: [facility] Work Phone: Start: 06-08-2022 End: 06-08-[address] [facility] Start: 05-30-2022 End: 05-30-[address] May Alicia Work Phone: [facility] Work Phone: Start: 05-30-2022 End: 05-30-[address] [facility] Start: 05-22-2022 End: 05-22-[address] May Alicia Work Phone: [facility] Start: 05-14-2022 End: 05-14-[address] May Alicia Work Phone: [facility] Work Phone: Start: 05-14-2022 End: 05-14-[address] [facility] Start: 05-03-2022 End: 05-03-[address] May Alicia Work Phone: [facility] Work Phone: Start: 05-03-2022 End: 05-03-[address] May Alicia Work Phone: [facility] Start: 05-01-2022 End: 05-01-[address] May Alicia Work Phone: [facility] Work Phone: Start: 05-01-2022 End: 05-01-[address] May Alicia Work Phone: [facility] Start: 03-26-2022 End: 03-26-2022 Lab Order May Alicia DO Work Phone: [facility] Start: 03-26-2022 End: 03-26-[address] May Alicia Work Phone: [facility] Work Phone: Start: 03-26-2022 End: 03-26-[address] May Alicia Work Phone: [facility]-Laboratory Start: 03-21-2022 End: 03-21-[address] May Alicia Work Phone: [facility] Work Phone: Start: 03-21-2022 End: 03-21-2022 Patient encounter procedure Sindhu Sepulveda CMA [facility]; [facility] Work Phone: Start: 03-21-2022 End: 03-21-2022 Patient encounter status Sindhu Sepulveda CMA [facility]; [facility] Work Phone: Start: 03-21-2022 End: 03-21-2022 Periodic preventive med est patient 40-64yrs May Alicia DO Work Phone: [facility] Start: 03-17-[address] Jovita Alicia Work Phone: [facility] Start: 03-14-2022 End: 03-14-[address] May Alicia Work Phone: [facility] Start: 03-13-2022 End: 03-13-[address] May Alicia Work Phone: [facility] Start: 03-12-2022 Non-patient / Non-visit Dr. Jim Alicia Work Phone: [facility] Start: 03-12-2022 End: 03-12-2022 Admission to same day surgery center Dr. May Alicia Work Phone: [facility]-Endoscopy Start: 02-02-2022 End: 02-02-[address] May Alicia Work Phone: [facility] Start: 12-26-2021 End: 12-26-[address] May Alicia Work Phone: [facility]Labor[facility] Start: 12-22-2021 End: 12-22-[address] [facility] Start: 12-22-2021 End: 12-22-[address] May Alicia Work Phone: [facility] Start: 10-27-2021 End: 10-27-2021 Phone Encounter May Alicia DO Work Phone: [facility] Start: 03-15-2021 End: 03-15-2021 Office outpatient visit 25 minutes May Alicia DO Work Phone: [facility] Start: 07-27-2019 End: 07-27-2019 Phone Encounter May Alicia [facility] Start: 07-23-2019 End: 07-23-2019 Office outpatient visit 5 minutes May Alicia [facility] Start: 07-22-2019 End: 07-22-2019 Office outpatient visit 25 minutes May Alicia [facility] Start: 02-16-2019 End: 02-16-2019 Patient [...] 03-04-2017 End: 03-04-2017 Patient encounter procedure May Alicia DO Work [...] Start: 12-13-2015 End: 12-13-2015 Historical Summary May Eliseo [facility] Start: 09-06-2015 End: 09-06-2015 Lab Order May Eliseo [facility] Start: 09-06-2015 End: 09-06-2015 Office outpatient visit 25 minutes May Eliseo [facility] Start: 08-22-2015 End: 08-22-2015 Historical Summary Mayamelie Felipeon [facility] Start: 08-22-2015 End: 08-22-2015 Office outpatient visit 25 minutes May Eliseo [facility] Start: 08-17-2015 End: 08-17-2015 Annotation/Addendum May Eliseo [facility] Start: 08-15-2015 End: 08-15-2015 Office outpatient visit 15 minutes May Alicia [facility] Start: 09-15-2014 End: 09-15-2014 Office outpatient visit 25 minutes May Eliseo [facility] Start: 08-23-2014 End: 08-23-2014 Phone Encounter May Alicia [facility] Start: 08-10-2014 End: 08-10-2014 Office outpatient visit 40 minutes May Eliseo [facility] Start: 07-26-2014 End: 07-26-2014 Annotation/Addendum May Eliseo [facility] Start: 07-26-2014 End: 07-26-2014 Office outpatient visit 25 minutes May Eliseo [facility] Start: 07-13-2014 End: 07-13-2014 Annotation/Addendum May Alicia [facility] Start: 07-12-2014 End: 07-12-2014 Annotation/Addendum May Eliseo [facility] Start: 07-08-2014 End: 07-08-2014 Phone Encounter May Eliseo [facility] Start: 07-07-2014 End: 07-07-2014 Office outpatient visit 25 minutes May Alicia [facility] Start: 06-22-2014 End: 06-22-2014 Office outpatient visit 25 minutes May Alicia [facility] Start: 06-10-2014 End: 06-10-2014 Office outpatient visit 15 minutes May Alicia [facility] Start: 05-03-2014 End: 05-03-2014 Office outpatient visit 15 minutes May Alicia [facility] Start: 04-05-2014 End: 04-05-2014 Office outpatient visit 15 minutes May Alicia [facility] Start: 03-24-2014 End: 03-24-2014 Office outpatient visit 15 minutes May Alicia [facility] Start: 02-19-2014 End: 02-19-2014 Office outpatient visit 25 minutes May Alicia [facility] Start: 02-08-2014 End: 02-08-2014 Phone Encounter May Alicia [facility] Start: 02-05-2014 End: 02-05-2014 Office outpatient visit 25 minutes May Alicia [facility] Start: 01-25-2014 End: 01-25-2014 Office outpatient visit 25 minutes May Alicia [facility] Start: 03-09-2013 End: 03-09-2013 Office outpatient visit 25 minutes May Alicia [facility] Start: 03-03-2013 End: 03-03-2013 Phone Encounter May Alicia [facility] al Medicine Start: 03-03-2013 End: 03-03-2013 Office outpatient visit 25 minutes May Alicia [facility] Start: 02-27-2013 End: 02-27-2013 Office outpatient visit 15 minutes May Alicia [facility] Start: 02-25-2013 End: 02-26-2013 Patient encounter procedure May Alicia [facility] Start: 01-29-2013 End: 01-29-2013 Patient encounter procedure May Alicia [facility] Start: 12-25-2012 End: 12-25-2012 Patient encounter procedure May Alicia [facility] Start: 12-12-2012 End: 12-12-2012 Phone Encounter May Alicia [facility] al Medicine Start: 12-03-2012 End: 12-03-2012 Patient encounter procedure May Alicia [facility] Start: 11-18-2012 End: 11-19-2012 Patient encounter procedure May Alicia [facility] Start: 04-14-2012 End: 04-14-2012 Patient encounter procedure May Alicia [facility] Start: 04-02-2012 End: 04-02-2012 Patient encounter procedure May Alicia [facility] Start: 03-30-2011 End: 03-30-2011 Office outpatient visit 15 minutes May Alicia [facility] Start: 03-17-2010 End: 03-17-2010 Phone Encounter May Alicia [facility] Start: 03-13-2010 End: 03-13-2010 Patient encounter procedure May Alicia [facility] Start: 02-22-2010 End: 02-22-2010 Office outpatient new 30 minutes May Alicia [facility] Patient encounter procedure Destiny Carrillo MOSES [facility]; [facility] Work Phone: Patient encounter procedure May Alicia DO Work Phone: [facility]; [facility] Work Phone: Patient encounter status Cary Heaton RN [facility]; [facility] Work Phone: Physical examination Cary Heaton RN C [facility]; [facility] Work Phone: Procedures Date Procedure Procedure Detail Performing Clinician Start: 08-05-2024 Liquid based cervical cytology screening Dr. May Alicia DO Work Phone: Comment on above: NEGATIVE FOR INTRAEPITHELIAL LESION OR M ALIGNANCY.SPECIMEN REPROCESSED FOR INTERPRETATION USING GLACIAL ACETIC ACID(GAA). This liquid based Th inPrep(R) pap test was screened withthe use of an image guided system. Start: 07-29-2024 MRI of small intestine Dr. May Alicia DO Work Phone: Start: 07-06-[address] May Alicia DO Work Phone: Start: 07-02-2024 CT angiography of chest with contrast Dr. May Alicia DO Work Phone: Start: 05-20-[address] May Alicia DO Work Phone: Start: 05-20-2024 Giardia lamblia antigen assay Dr. May Alicia DO Work Phone: Start: 05-20-[address] May Alicia DO Work Phone: Start: 05-20-2024 Measurement of occult blood in stool specimen using immunoassay Dr. May Alicia DO Work Phone: Start: 05-20-[address] May Alicia DO Work Phone: Start: 05-20-20[address]va [place] parasites identification Dr. May Alicia DO Work Phone: Start: 04-24-2024 Computed tomography of abdomen and pelvis with contrast Dr. May Alicia DO Work Phone: Start: 06-16-[address] May Alicia Work Phone: Start: 06-16-2023 Giardia Antigen (CARLITOS) Dr. May Alicia Work Phone: Start: 06-16-[address] May Alicia Work Phone: Start: 06-16-[address] May Alicia Work Phone: Start: 06-16-[address] parasites identification [address] May Alicia Work Phone: Start: 05-17-2023 MRI of small intestine Start: 04-02-2023 Radionuclide imaging of liver and/or biliary tract using radioactive isotope Dr. May Alicia Work Phone: Start: 02-01-2023 End: 02-01-2023 Lower Ext Joint Only (Routine) Procedure Note: See Note; NOTES: [facility] Imaging Services [address] [place] [address] Lower Ext Joint Only (Routine) MR#: [id number] Acct: [id number] Name: DIANE DESHPANDE Rep #: [id number] : 1990 F 32 From: Jay andres MD PCP: Dr. May Alicia, DO Status: REG CLI Study: Lower Ext Joint Only (Routine) Date of Exam: 0 02/01/23 Exam# [id number] Ordering Dr: Azeem Julien DPOpal STUDY: MRI LEFT ANKLE WITHOUT CONTRAST REASON FOR EXAM: Female, 32 years old. ACHILLES TEAR TECHNIQUE: Standardized fat and water weighted pulse sequences were obtained in all 3 orthogonal planes. COMPARISON: None. ___ FINDINGS: Mild subchondral marrow edema pattern is [...] articulation. Normal calcaneocuboid articulation. Normal navicular-cuneiform articulations. ___ MRI/Lower Ext Joint Only (Routine) IMPRESSION: 1. [...] CC: DELIA Julien; Dr. May Alicia DO Electric Mule Driver: Signed May Alicia DO Work Phone: Start: 02-01-2023 MRI of joint of lower extremity Dr. May Alicia Work Phone: Start: 01-17-2023 End: 01-17-2023 Foot min 3 Views Procedure Note: See Note; NOTES: [facility] Imaging Services [address] [place] [address] Foot min 3 Views MR#: [id number] Acct: [id number] Name: DIANE DESHPANDE Rep #: [id number] : 1990 F 32 From: Mauricio rios MD PCP: Dr. May Alicia DO Status: DEP ER Study: Foot min 3 Views Date of Exam: 01/17/23 Exam# [id number] Ordering Dr: Dwight Vasquez MD INDICATION: pain [...] Dwight Vasquez MD; Dr. May Alicia DO Electric Mule Driver: Signed May Alicia DO Work Phone: Start: 01-17-2023 X-ray of both feet Dr. May Alicia Work Phone: Start: 01-17-2023 End: 01-17-2023 Emergency Department Summary Procedure Note: See Note; NOTES: [facility] Medical Records Department [address] [place] [address] Emergency Department Summary 01/17/23 MR#: [id number] Acct: [id number] Name: DIANE DESHPANDE Rep #: [id number] : 1990 32 From: Dwight Vasquez MD PCP: Dr. May Alicia, DO Status:REG ER Location: ED HPI History [...] Crohn's and that is currently well controlled. [facility] Medical History Anxiety Arthritis Crohn disease Depression [...] Taken Unknown] ustekinumab 90 mg/mL subcutaneous syringe (Departinglara) 90 mg subcut Q4W #1 mL 11/07/22 [...] Impression: Achilles rupture, left Instructions: Using Crutches: Ynr-Tysuxv-Srregdm, Achilles Tendon Rupture Prescriptions: No Action selenium [...] your Primary Care Provider. Call [facility] ([phone]) or report to the closest Emergency Room. Call 911 if necessary. 01/17/23 8392 <Electronically signed by Dwight Vasquez MD> Cosigner Signature (if applicable): CC: DELIA Julien; Dr. May Alicia DO Signed May Alicia DO Work Phone: Start: 01-01-2023 End: 01-01-2023 Gastroenterology Visit Report Procedure Note: See Note; NOTES: [facility] Gastroenterology [address] [place] [address] OFFICE VISIT Date of Service: 01/01/23 MR#: [id number] Acct: [id number] Name: DIANE DESHPANDE Rep #: [id number] : 1990 Provider: Valentin Whitmore DO Age/Sex: 32/F Location: [facility] Status: Signed Intake Vital Signs 10/02/22 11:26 [...] symptoms returned and established with GI in [place] who started Humira, increased dosing to weekly with symptom improvement but no remission. Stelara started with symptom improvement but continues to have difficulty with abd pain, nausea, loose stools, urgency related incontinence and intermittent presence of blood OV 9..22 continue Lomotil, colestipol and dicyclomine for symptom [...] 05.22.22 gastric ulceration, inflammatory changes noted starting [id number] with diffused chenges and worsening with progression [...] how symptoms improve with job change. OV 5..23 for management of Crohn???s with IBS; Lomotil has been stopped. Colestipol decreased from 2gram to 1gram with goal of cessation of colestipol. BM occur daily with normal/formed stool. Has been increased diet choices. ? EGD and colonoscopy 12.13.22 EGD irregular Zline 40cm; gastritis; duodenitis. No metaplasia. ? Colonoscopy local inflammation, Rutgeerts Score i2, of distal/terminal ileum, acute/chronic enteritis. OV 8.06.25 she has been having loose stools with [...] have since ended. ? ESR/CRP? calp/lact? serum/ab ..21 --/--? --/--? --/--? DIAMOND Barboza. 07.15.22 --/--? --/--? --/--? Gill Q4W started.? 07.22.22 21/20.30? 530/+? 5/neg? CBC, CMP, LFT, GAME, DELORES, ANCA, MAXINE comp, celiac, MISC? O/P, EP, C.diff WNL 03.28.22 /18.3? --/--? 3.3/neg? RAST Shrimp Class I, globulins, celiac, MISC 05.03.22 --/--? --/--? --/--? Crohn???s (apANCA, Dimple), CMV [...] and oriented x3 Quality Reporting Tobacco Screening ([facility] 138) Smoking Status: Never smoker Assessment and Plan Assessment and Plan (1) Crohn's disease: Status: Chronic Qualifiers: Gastrointestinal tract location: small intestine Digestive disease complication type: without complication Qualified Code(s): K50.00 - Crohn's disease of small intestine without complications Plan: From a subjective standpoint and regarding her Crohn's disease she is having about 2-3 bowel movements a day. Most are a Dodson stool scale of 5 and sometimes 6. [...] bowel syndrome without diarrhea OVA+PARA w/Giardia EIA [id number] Today K50.90 - Crohn's disease, unspecified, without [...] <Electronically signed by Valentin Whitmore DO> Date ___ Valentin Contreras Signature: Date ___ (if applicable) CC: May Alicia DO Work Phone: Start: 12-13-2022 End: 12-13-2022 EGD Report Procedure Note: See Note; NOTES: [facility] Medical Records Department [address] [place] [address] EGD Report MR#: [id number] Acct: [id number] Name: DIANE DESHPANDE Rep #: [id number] : 1990 32 From: Valentin Whitmore DO PCP: Dr. May Alicia DO Status:REG [facility] Patient Name: Diane Deshpande Procedure Date: 12/13/2022 [...] pathology results. Procedure Code(s): --- Professional --- 55812, Esophagogastroduodenoscopy, flexible, transoral; with biopsy, single or multiple CPT copyright 2017 [employer]. All rights reserved. The codes documented in this report are preliminary and upon freight clerk review may be revised to meet current compliance requirements. Valentin Whitmore DO 12/13/2022 7:22:08 AM This report has been signed electronically. Number of Addenda: 0 Note Initiated On: 12/13/2022 6:21 AM 12/13/22 0722 Date ___ Valentin Whitmore DO Cosigner Signature: Date ___ (if indicated) CC: Dr. May Alicia DO; Valentin Whitmore DO Date Dictated: 12/13/22620 Date Transcribed: Electric Mule Driver: RF Signed May Alicia DO Work Phone: Start: 12-13-2022 End: 12-13-2022 Colonoscopy Report Procedure Note: See Note; NOTES: [facility] Medical Records Department [address] [place] [address] Colonoscopy Report MR#: [id number] Acct: [id number] Name: DIANE DESHPANDE Rep #: [id number] : 1990 32 From: Valentin Whitmore DO PCP: Dr. May Alicia, DO Status:REG [facility] Patient Name: Diane Deshpande Procedure Date: 12/13/2022 [...] 1 year. Procedure Code(s): --- Professional --- 49771, Colonoscopy, flexible; with biopsy, single or multiple CPT copyright 2017 [employer]. All rights reserved. The codes documented in this report are preliminary and upon freight clerk review may be revised to meet current compliance requirements. Valentin Whitmore DO 12/13/2022 7:18:50 AM This report has been signed electronically. Number of Addenda: 0 Note Initiated On: 12/13/2022 6:51 AM 12/13/22 0719 Date ___ Valentin Whitmore DO Cosigner Signature: Date ___ (if indicated) CC: Dr. May Alicia DO; Valentin Whitmore DO Date Dictated: 12/13/22 0651 Date Transcribed: Electric Mule Driver: CATERINA Signed May Alicia DO Work Phone: Start: 12-13-2022 End: 12-13-2022 History and Physical Exam Procedure Note: See Note; NOTES: [facility] Medical Records Department [address] [place] [address] History Physical Exam 12/13/22 0633 MR#: [id number] Acct: [id number] Name: DIANE DESHPANDE Rep #: [id number] : 1990 32 From: Valentin Friend DO PCP: Dr. May Alicia, DO Status:[facility] Location: [place] [address] History and Physical Date of Admission: 12/13/22 [...] started having more issues--severe diarrhea all the time. So she went to a GI doctor in [place] in 2019; he put her on Humira, [...] and oriented x3 Quality Reporting Tobacco Screening ([facility] 138) Smoking Status: Never smoker Assessment and [...] May Alicia DO Work Phone: Start: 12-13-[address] May Alicia Work Phone: Start: 2022 End: 2022 Gastroenterology Visit Report Procedure Note: See Note; NOTES: [facility] Gastroenterology [address] [place] [address] OFFICE VISIT Date of Service: 10/02/22 MR#: [id number] Acct: [id number] Name: DIANE DESHPANDE Rep #: [id number] : 1990 Provider: LANDY Hooks Age/Sex: 32/F Location: [facility] Status: Signed Intake Vital Signs 10/02/22 11:26 [...] started having more issues--severe diarrhea all the time. So she went to a GI doctor in [place] in 2019; he put her on Humira, [...] and oriented x3 Quality Reporting Tobacco Screening ([facility] 138) Smoking Status: Never smoker Assessment and [...] signed by Theresa Hooks NP, NP-C> Date ___ Theresa Hooks NP FLIGHT ATTENDANT/INFLIGHT SUPERVISOR-C Cosigner Signature: Date ___ (if applicable) CC: Dr. May Alicia, DO May Alicia DO Work Phone: Start: 06-26-2022 End: 06-26-2022 Gastroenterology Visit Report Procedure Note: See Note; NOTES: [facility] [address] [facility] [place] [address] OFFICE VISIT Date of Service: 06/26/22 MR#: [id number] Acct: [id number] Name: DIANE DESHPANDE Rep #: [id number] : 1990 Provider: LANDY Hooks Age/Sex: 31/F Location: [facility] Status: Signed Intake Vital Signs 03/26/22 09:59 [...] started having more issues--severe diarrhea all the time. So she went to a GI doctor in [place] in 2019; he put her on Humira, [...] normal respiratory effort Quality Reporting Tobacco Screening ([facility] 138) Smoking Status: Never smoker Assessment and [...] 06/26/22 0833 <Electronically signed by Theresa Hooks NP, NP-C> Date ___ Theresa Hooks NP FLIGHT ATTENDANT/INFLIGHT SUPERVISOR-C Cosigner Signature: Date ___ (if applicable) CC: Dr. May Alicia, DO May Alicia DO Work Phone: Start: 05-22-2022 End: 05-30-2022 Office Visit Report Procedure Note: See Note; NOTES: [facility] [place] [address] OFFICE VISIT Date of Service: 05/22/22 MR#: [id number] Acct: [id number] Patient: DIANE DESHPANDE Rep #: [id number] : 1990 Provider: Valentin Whitmore DO Age/Sex: 31/F [place] [facility] [place]: Signed Intake Vital Signs 03/26/22 09:59 Height 5 ft 7 in Intake Visit Reasons: cap endo Chief Complaint: Crohn's Allergies No Known Allergies Allergy (Verified 05/01/22 15:58) Office Procedures Procedure Administration Route: PO Administration Location: [facility] Dispensed Units: 1 Capsule Lot Number: [id number] Expiration Date: 02/28/23 Capsule ID Number: [id number] Consent Form Signed: Yes Reason for Pill Capsule Endoscopy: Crohn's Disease Comments: Pt tolerated procedure well. All questiosn were awnsered. Pill Cam Billing-In Office: [id number] GI TRACT CAPSULE ENDOSCOPY 05/30/22 0630 <Electronically signed by Valentin Friend DO> Date ___ Valentin Friend DO Cosigner Signature: Date ___ (if applicable) CC: May Alicia DO Work Phone: Start: 05-14-2022 End: 05-15-2022 Abdomen Single View Procedure Note: See Note; NOTES: [facility] Imaging Services [address] [place] [address] Abdomen Single View MR#: [id number] Acct: [id number] Name: DIANE DESHPANDE Rep #: [id number] : 1990 F 31 From: Niraj regan MD PCP: Dr. May Alicia, Status: [facility] Study: Abdomen Single View Date of Exam: 05/14/22 Exam# [id number] Ordering Dr: Theresa Hooks NP FLIGHT ATTENDANT/INFLIGHT SUPERVISOR-C STUDY: X-RAY - ABDOMEN/PELVIS REASON FOR EXAM: Female, 31 years old. Patency Capsule TECHNIQUE: Single AP view of the abdomen / pelvis. COMPARISON: None. ___ FINDINGS: Normal visualized lung bases. There is a moderate amount of colonic fecal material. No radiopaque capsule is seen. The visualized liver, spleen and kidneys are grossly normal in size and morphology. Normal soft tissue structures. Normal visualized osseous structures. ___ RAD/Abdomen Single View IMPRESSION: Moderate amount of fecal material is seen in the colon. Electronically Signed: Niraj Liriano MD at 11:10 EST , CC: FLIGHT ATTENDANT/INFLIGHT SUPERVISORSheri Hooks; Dr. May Alicia DO Electric Mule Driver: Signed May Alicia DO Work Phone: Start: 05-14-2022 Diagnostic radiography of abdomen Dr. May Alicia Work Phone: Start: 05-03-2022 Computed tomography of abdomen and pelvis with contrast Dr. May Alicia Work Phone: Start: 05-03-2022 End: 05-03-2022 Abdomen/Pelvis WITH Contrast Procedure Note: See Note; NOTES: [facility] Imaging Services [address] [place] [address] Abdomen/Pelvis WITH Contrast MR#: [id number] Acct: [id number] Name: DIANE DESHPANDE Rep #: [id number] : 1990 F 31 From: Delroy Cruz MD PCP: Dr. May Alicia DO Status: REG CLI Study: Abdomen/Pelvis WITH Contrast Date of Exam: 06/24 Exam# [id number] Ordering Dr: Theresa Hooks NP FLIGHT ATTENDANT/INFLIGHT SUPERVISOR-C INDICATION: Crohn''s disease EXAMINATION: CT ABDOMEN AND [...] Signed: Delroy Cruz MD at 21:37 EST Reading Location ID and State: [address] [place] [address] Tel , Service support , CC: LANDY Hooks; Dr. May Alicia DO Electric Mule Driver: Signed May Alicia DO Work Phone: Start: 05-01-2022 Plain X-ray of shoulder Dr. May Alicia Work Phone: Start: 05-01-2022 End: 05-01-2022 Shoulder min 2 Views Procedure Note: See Note; NOTES: [facility] Imaging Services [address] [place] [address] Shoulder min 2 Views MR#: [id number] Acct: [id number] Name: DIANE DESHPANDE Rep #: [id number] : 1990 F 31 From: Ravi Gary MD PCP: Dr. May Alicia DO Status: REG CLI Study: Shoulder min 2 Views Date of Exam: 05/01/22 Exam# [id number] Ordering Dr: Ramses Hastings STUDY: X-RAY - LEFT SHOULDER REASON FOR EXAM: Female, 31 years old. injury TECHNIQUE: 4 view(s) of the shoulder. COMPARISON: None. ___ FINDINGS: Normal glenohumeral articulation. Normal acromioclavicular joint. Normal acromion. Normal humeral head and visualized proximal humerus. The soft tissue structures are unremarkable. Normal visualized pulmonary apex. ___ RAD/Shoulder min 2 Views IMPRESSION: Normal x-ray examination of the shoulder. Electronically Signed: Ravi Gary MD at 16:51 EST , CC: CHINTAN Hastings; Dr. May Alicia DO Electric Mule Driver: Signed May Alicia DO Work Phone: Start: 05-01-2022 End: 05-01-2022 Urgent Care Visit Report Procedure Note: See Note; NOTES: [facility] [address] [place] [address] OFFICE VISIT Date of Service: 05/01/22 MR#: [id number] Acct: [id number] Name: DIANE DESHPANDE Rep #: [id number] : 1990 Provider: CHINTAN jang Age/Sex: 31/F Location: [facility] Status: Signed Intake Vital Signs 05/01/22 15:55 BP 120/82 H Blood Pressure Location Lt brachial Position Sitting Respiration 20 H Pulse 113 H Pulse Source Monitor Temp 98.7 F Temp Source Temporal Pulse Oximetry (%) 99 Oxygen Delivery Method room air Intake Visit Reasons: [employer]/LEFT SHOULDER INJURY/[employer] Chief Complaint: Crohn's Allergies No [...] gastritis #1,000 mL 03/28/22 [Rx Confirmed 05/01/22] PENDING SALE TO [facility] Medical History (Updated 05/01/22 @ 16:09 by [...] 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 She notes no loss of sensation or [...] work without restrictions as noted on today's [employer] 14. Rest, ice, HEP, NSAIDs as needed for symptomatic relief. Follow-up with the now clinic on 05/08/2022, sooner should symptoms worsen or any other concerns develop; anticipate release at next follow-up. Patient states acknowledging understanding all the above. This note was generated with [employer] software. It may contain incorrect words, spelling, and punctuation that were not noted in checking the note before signing. Orders: Orders Shoulder min 2 Views Today S49.92XA - Unspecified injury of left shoulder and upper arm, initial encounter 05/01/22 1653 <Electronically signed by Ramses WOODSON> Date ___ Ramses WOODSON Cosigner Signature: Date ___ (if applicable) CC: May Alicia DO Work Phone: Start: 03-26-2022 End: 03-28-2022 Gastroenterology Visit Report Procedure Note: See Note; NOTES: [facility] Gastroenterology [address] [place] [address] OFFICE VISIT Date of Service: 03/26/22 MR#: [id number] Acct: [id number] Name: DIANE DESHPANDE Rep #: [id number] : 1990 Provider: LANDY Hooks Age/Sex: 31/F Location: [facility] Status: Signed Intake Vital Signs 12/22/21 09:22 [...] 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 Because her symptoms were not controlled on [...] started having more issues--severe diarrhea all the time. So she went to a GI doctor in [place] in 2019; he put her on Humira, [...] normal respiratory effort Quality Reporting Tobacco Screening ([facility] 138) Smoking Status: Never smoker Assessment and [...] 03/28/22 1638 <Electronically signed by Theresa Hooks FLIGHT ATTENDANT/INFLIGHT SUPERVISOR FLIGHT ATTENDANT/INFLIGHT SUPERVISOR-C> Date ___ Theresa Hooks FLIGHT ATTENDANT/INFLIGHT SUPERVISOR FLIGHT ATTENDANT/INFLIGHT SUPERVISOR-C Cosigner Signature: Date ___ (if applicable) CC: Dr. May Alicia, DO May Alicia DO Work Phone: Start: 03-13-2022 End: 03-13-2022 Office Visit Report Procedure Note: See Note; NOTES: [facility] [address] [place], [place] [address] [address] OFFICE VISIT Date of Service: 03/13/22 MR#: [id number] Acct: [id number] Patient: DIANE DESHPANDE Rep #: [id number] : 1990 Provider: CHINTAN Singh Age/Sex: 31/F Location: [facility] Status: Signed Employer Purchased Covid Test Note: Patient here today for Covid Testing, requested by their Employer. Assessment and Plan Assessment and Plan Orders: Orders POC Cepheid NEAL Cov-2 PCR EMP Today R05.9 - Cough, unspecified 03/13/22 1634 <Electronically signed by Sukhwinder WOODSON> Date ___ Sukhwinder WOODSON Cosignsantana Signature: Date ___ (if applicable) CC: May Alicia DO Work Phone: Start: 03-12-2022 End: 03-12-2022 Colonoscopy Report Procedure Note: See Note; NOTES: [facility] Medical Records Department [address] [place] [address] Colonoscopy Report MR#: [id number] Acct: [id number] Name: DIANE DESHPANDE Rep #: [id number] : 1990 31 From: Valentin Whitmore DO PCP: Dr. May Alicia DO Status:REG [facility] Patient Name: Diane Deshpande Procedure Date: 03/12/2022 [...] screening purposes. Procedure Code(s): --- Professional --- 02873, Colonoscopy, flexible; with biopsy, single or multiple CPT copyright 2017 [employer]. All rights reserved. The codes documented in this report are preliminary and upon freight clerk review may be revised to meet current compliance requirements. Valentin Whitmore DO 03/12/2022 11:46:40 AM This report has been signed electronically. Number of Addenda: 0 Note Initiated On: 03/12/2022 11:13 AM 03/12/22 1146 Date ___ Valentin Whitmore DO Cosigner Signature: Date ___ (if indicated) CC: Dr. May Alicia DO; Valentin Whitmore DO Date Dictated: 03/12/22 1113 Date Transcribed: Electric Mule Driver: RF Signed May Alicia DO Work Phone: Start: 03-12-2022 End: 03-12-2022 EGD Report Procedure Note: See Note; NOTES: [facility] Medical Records Department [address] [place] [address] EGD Report MR#: [id number] Acct: [id number] Name: DIANE DESHPANDE Rep #: [id number] : 1990 31 From: Valentin Whitmore DO PCP: Dr. May Alicia DO Status:REG LAC Patient Name: Diane Deshpande Procedure Date: 03/12/2022 [...] GI office. Procedure Code(s): --- Professional --- 69172, Esophagogastroduodenoscopy, flexible, transoral; with biopsy, single or multiple CPT copyright 2017 [employer]. All rights reserved. The codes documented in this report are preliminary and upon freight clerk review may be revised to meet current compliance requirements. Valentin Whitmore DO 03/12/2022 11:40:04 AM This report has been signed electronically. Number of Addenda: 0 Note Initiated On: 03/12/2022 10:50 AM 03/12/22 1140 Date ___ Valentin Whitmore DO Cosigner Signature: Date ___ (if indicated) CC: Dr. May Alicia DO; Valentin Whitmore DO Date Dictated: 03/12/22 1050 Date Transcribed: Electric Mule Driver: CATERINA Signed May Alicia DO Work Phone: Start: 03-12-2022 End: 03-12-2022 History and Physical Exam Procedure Note: See Note; NOTES: [facility] Medical Records Department [address] [place] [address] History Physical Exam 03/12/22 1053 MR#: [id number] Acct: [id number] Name: DIANE DESHPANDE Rep #: [id number] : 1990 31 From: Valentin Whitmore DO PCP: Dr. May Alicia DO Status:[facility] Location: [place] [address] History and Physical Date of Admission: 03/12/22 DIANE DESHPANDE, is a 31 F who [...] started having more issues--severe diarrhea all the time. So she went to a GI doctor in [place] in 2019; he put her on Humira, she was always on it weekly, it helped but her symptoms never resolved, then it stopped working at all after about a year. She started Stelara in 04/2021. She had the induction dose here at [facility], then gives herself the q8wks SQ [...] and oriented x3 Quality Reporting Tobacco Screening ([facility] 138) Smoking Status: Never smoker Assessment and [...] Visit Report Procedure Note: See Note; NOTES: [facility] Gastroenterology [address] [place] [address] OFFICE VISIT Date of Service: 02/02/22 MR#: [id number] Acct: [id number] Name: DIANE DESHPANDE Rep #: [id number] : 1990 Provider: LANDY Hooks Age/Sex: 31/F Location: [facility] Status: Signed Intake Vital Signs 02/02/22 09:02 [...] History (Updated 02/02/22 @ 09:56 by Theresa M Jessee FLIGHT ATTENDANT/INFLIGHT SUPERVISOR, FLIGHT ATTENDANT/INFLIGHT SUPERVISOR-C) Crohn disease Electrocution, initial encounter Headache Low [...] started having more issues--severe diarrhea all the time. So she went to a GI doctor in [place] in 2019; he put her on Humira, she was always on it weekly, it helped but her symptoms never resolved, then it stopped working at all after about a year. She started Stelara in 04/2021. She had the induction dose here at [facility], then gives herself the q8wks SQ [...] and oriented x3 Quality Reporting Tobacco Screening ([facility] 138) Smoking Status: Never smoker Assessment and [...] K50.90 02/02/22 0958 <Electronically signed by Theresa Hooks NP, NP-C> Date ___ Theresa Hooks NP FLIGHT ATTENDANT/INFLIGHT SUPERVISOR-C Cosigner Signature: Date ___ (if applicable) CC: Dr. May Alicia, DO May Alicia DO Work Phone: Start: 12-22-2021 End: 12-23-2021 Gastroenterology Visit Report Procedure Note: See Note; NOTES: [facility] Gastroenterology [address] [place] [address] OFFICE VISIT Date of Service: 12/22/21 MR#: [id number] Acct: [id number] Name: DIANE DESHPANDE Rep #: [id number] : 1990 Provider: LANDY Hooks Age/Sex: 31/F [place] [facility] [place]: Signed Intake Vital Signs 04/21/21 08:22 [...] started having more issues--severe diarrhea all the time. So she went to a GI doctor in [place] in 2019; he put her on Humira, she was always on it weekly, it helped but her symptoms never resolved, then it stopped working at all after about a year. She started Stelara in 04/2021. She had the induction dose here at [facility], then gives herself the q8wks SQ [...] Affect: normal affect Quality Reporting Tobacco Screening ([facility] 138) Smoking Status: Never smoker Assessment and [...] 12/23/21 1355 <Electronically signed by Theresa Hooks FLIGHT ATTENDANT/INFLIGHT SUPERVISOR FLIGHT ATTENDANT/INFLIGHT SUPERVISOR-C> Date ___ Theresarandy Hooks NP FLIGHT ATTENDANT/INFLIGHT SUPERVISOR-C Cosigner Signature: Date ___ (if applicable) CC: Dr. May Alicia, DO May Alicia DO Work Phone: Start: 06-17-2021 End: 06-17-2021 Urgent Care Visit Report Comments: See Note; NOTES: [facility] [address] [place] [address] [address] [place] [address] OFFICE VISIT Date of Service: 06/17/21 MR#: [id number] Acct: [id number] Name: DIANE DESHPANDE Rep #: [id number] : 1990 Provider: CHINTAN Virk Age/Sex: 30/F Location: [facility] Status: Signed Intake Vital Signs 06/17/21 12:56 [...] covid test at the drive through for [facility] yesterday and it was negative but she was told by employee health that she needed retested. She has [...] (1) Viral URI: Status: Acute Plan - Goldy WOODSON PA: Viral URI-sick x3 days. Boyfriend currently has [...] 1340 <Electronically signed by Goldy WOODSON> Date ___ Goldy WOODSON Cosigner Signature: Date ___ (if applicable) CC: May Alicia DO Work Phone: Start: 02-22-2021 End: 02-23-2021 Emergency Department Summary Comments: See Note; NOTES: [facility] Medical Records Department [address] [place] [address] Emergency Department Summary 02/22/21 MR#: [id number] Acct: [id number] Name: DIANE DESHPANDE Rep #: [id number] : 1990 30 From: Greta Leahy MD PCP: Dr. May Alicia, DO Status:[facility] ER Location: ED HPI History of Present [...] injury. She did not strike her head. [facility] Medical History Crohn disease Home Medications folic [...] narrative: Patient was given 2 tabs of [place] for pain. Left ankle x-rays are obtained. [...] Primary Care Provider: May Alicia Referrals: May Alicia, [Primary Care Provider] - Devang Briones MD [STAFF PHYSICIAN] - 5-7 Days Disposition Disposition: Home, Self Care What to do if you have Problems For any increased pain, shortness of breath, bleeding, nausea or vomiting, chest pain, or any unexpected problems, contact your Primary Care Provider. Call [facility] ([phone]) or report to the closest Emergency Room. Call 911 if necessary. 02/23/21 0243 <Electronically signed by Greta Leahy MD> Cosigner Signature (if applicable): CC: Dr. May Alicia DO Signed May Alicia DO Work Phone: Start: 02-22-2021 End: 02-22-2021 Ankle min 3 Views Comments: See Note; NOTES: [facility] Imaging Services [address] [place] [address] Ankle min 3 Views MR#: [id number] Acct: [id number] Name: DIANE DESHPANDE Rep #: [id number] : 1990 F 30 From: Niranjan Hewitt MD PCP: Dr. May Alicia DO Status: PRE ER Study: Ankle min 3 Views Date of Exam: 02/22/21 Exam# [id number] Ordering Dr: Greta Leahy MD EXAM: XR Left Ankle Complete, 3 or More Views CLINICAL INDICATION: 30 years old, Female; injury TECHNIQUE: Frontal, lateral and oblique views of the left ankle. This report was created using WiseStamp report generation technology. COMPARISON: None. FINDINGS: Bones/joints: [...] Greta Leahy MD; Dr. May Alicia DO Electric Mule Driver: Signed May Alicia DO Work Phone: Start: 11-29-2020 End: 12-01-2020 MRI Abd WITH and W/O Contrast Comments: See Note; NOTES: [facility] Imaging Services [address] [place] [address] MRI Abd WITH and W/O Contrast MR#: [id number] Acct: [id number] Name: DIANE DESHPANDE Rep #: [id number] : 1990 From: Leonardo Babcock MD PCP: Dr. May Alicia DO Status: REG CLI Study: MRI Abd WITH and W/O Contrast Date of Exam: Exam# [id number] Ordering Dr: Lino Shepard EXAM: MR ABDOMEN AND PELVIS WITHOUT AND WITH INTRAVENOUS CONTRAST : 1990 CLINICAL INDICATION: [place], [place] -- MR ENTEROGRAPHY, Dr. Bonner TECHNIQUE: Multiplanar and multisequence MR images of the abdomen and pelvis without and with intravenous contrast. This report was created using WiseStamp report generation technology. CONTRAST: IV [id number], 1mg glucagon COMPARISON: None. FINDINGS: LOWER THORAX: [...] Lino Shepard MD; Dr. May Alicia DO Electric Mule Driver: Signed May Alicia DO Work Phone: Start: 07-20-2020 End: 07-20-2020 Emergency Department Summary Comments: See Note; NOTES: [facility] Medical Records Department [address] [place] [address] Emergency Department Summary 07/20/20 MR#: [id number] Acct: [id number] Name: DIANE DESHPANDE Rep #: [id number] : 1990 29 From: Guillermo Doll DO [...] % (Auto) 60.7 Lymph % (Auto) 29.2 [place] % (Auto) 7.8 Eos % (Auto) 1.4 [...] Instructions: ED Dizziness, Uncertain Cause Referrals: May Alicia, [Primary Care Provider] - What to do if you have Problems For any increased pain, shortness of breath, bleeding, nausea or vomiting, chest pain, or any unexpected problems, contact your Primary Care Provider. Call [facility] ([phone]) or report to the closest Emergency Room. Call 911 if necessary. 07/20/20 6967 <Electronically signed by Guillermo Doll DO> Date ___ Guillermo Doll DO Cosigner Signature (If Indicated): Date CC: Dr. May Alicia, DO May Alicia DO Work Phone: Start: 01-13-2020 End: 01-13-2020 MRI Abd WITH and W/O Contrast Comments: See Note; NOTES: [facility] Imaging Services [address] [place] [address] MRI Abd WITH and W/O Contrast MR#: [id number] Acct: [id number] Name: DIANE DESHPANDE Rep #: [id number] : 1990 F 29 From: Ravi armando MD PCP: Dr. May Alicia, DO Status: REG CLI Study: MRI Abd WITH and W/O Contrast Date of Exam: Exam# [id number] Ordering Dr: Lino Shepard STUDY: MRI ABDOMEN [...] abdomen 09/09/2014, CT abdomen and pelvis 07/28/2014 ___ FINDINGS: Duodenum and jejunum: No apparent inflammation. [...] thickening and hyperenhancement in the sigmoid colon. ___ MRI/MRI Abd WITH and W/O Contrast IMPRESSION: [...] Lino Shepard MD; Dr. May Alicia DO Electric Mule Driver: Signed May Alicia Start: 08-24-2019 End: 08-24-2019 Emergency Department Summary Comments: See Note; NOTES: [facility] Medical Records Department [address] [place] [address] Emergency Department Summary 08/24/19 1907 MR#: [id number] Acct: [id number] Name: DIANE DESHPANDE Rep #: [id number] : 1990 28 From: Chase Guzman MD PCP: May Alicia DO Status: REG ER History of Present Illness Chief Complaint: Syncope Detail of Chief Complaint: History of orthostatic hypotension confirmed by table tilt test Informant: Patient Onset: Today Context: Sudden Onset Timing: Intermittent Quality: Lightheaded, blood pressure 60 then passed out Location: [facility] Current Severity: - - Orthostatic symptoms have [...] table tilt test. She was instructed by body hanger at [facility] to increase the salt in her [...] She was informed that she was pale. CLINICAL NURSING INTERN report was read. Blood pressure per CLINICAL NURSING INTERN was 198/93 with a heart rate of [...] NEAR SYNCOPE, Vasovagal, HYPOTENSION, Orthostatic Referrals: May Alicia DO [Primary Care Provider] - As Needed Additional Instructions: You need to make sure you drink plenty of fluids and add salt to your diet as instructed by your body hanger otherwise you may need to be placed on a steroid. What to do if you have Problems For any increased pain, shortness of breath, bleeding, nausea or vomiting, chest pain, or any unexpected problems, contact your Primary Care Provider. Call [facility] ([phone]) or report to the closest Emergency Room. Call 911 if necessary. 08/24/192053 <Electronically signed by Chase Guzman MD> Date ___ Chase Guzman MD Cosigner Signature (If Indicated): Date ___ CC: May Lawson Start: 08-10-2019 End: 08-21-2019 MRI Abd WITH and W/O Contrast Comments: See Note; NOTES: [facility] Imaging Services [address] [place] [address] MRI Abd WITH and W/O Contrast MR#: [id number] Acct: [id number] Name: DIANE DESHPANDE Rep #: [id number] : 1990 F 28 From: Ravi Gary MD PCP: May Alicia DO Status: REG CLI Study: MRI Abd WITH and W/O Contrast Date of Exam: 08/10/19 Exam# [id number] Ordering Dr: Lino Shepard MD STUDY: MRI [...] contrast portion of the examination. COMPARISON: None. ___ FINDINGS: The visualized lung bases are unremarkable. [...] retroperitoneum. Normal abdominal wall. Normal osseous structures. ___ MRI/MRI Abd WITH and W/O Contrast IMPRESSION: Chronic Crohn''s disease of the terminal ileum with mild dilatation and circumferential wall thickening but no evidence of transmural inflammation, abscess, or fistula. Electronically Signed: Ravi Gary MD at 9:17 EDT Tel , Service support , CC: Lino Shepard MD; May Alicia DO Electric Mule Driver: Signed May Alicia Start: 05-16-2018 End: 05-16-2018 Urgent Care Visit Report Comments: See Note; NOTES: [place] [address] OFFICE VISIT Date of Service: 05/16/18 MR#: [id number] Acct: [id number] Name: DIANE DESHPANDE Rep #: [id number] : 1990 Provider: Sukhwinder WOODSON Age/Sex: 27/F Location: [facility] Status: Signed Intake Vital Signs05/16/18 Body Mass [...] 1337 <Electronically signed by Sukhwinder WOODSON> Date ___ Sukhwinder WOODSON Cosigner Signature: Date ___ (if applicable) CC: May Alicia Start: 05-02-2018 End: 05-02-2018 Urgent Care Visit Report Comments: See Note; NOTES: [facility] [address] [place] [address] OFFICE VISIT Date of Service: 05/02/18 MR#: [id number] Acct: [id number] Name: DIANE DESHPANDE Rep #: [id number] : 1990 Provider: CHINTAN Vela Age/Sex: 27/F Location: [facility] Status: Signed Intake Vital Signs05/02/18 Body Mass Index (BMI) 43.0 05/02/18 Height 5 ft 7.5 in Intake Visit Reasons: [facility], ER F/U Chief Complaint: [facility], ER F/U Tumbler Tender Required: No Accompanied by: Self Is patient in pain?: No Allergies No Known Allergies Allergy (Verified 05/02/18 13:18) Medications folic acid 0.8 mg capsule 0.8 mg PO DAILY 05/02/18 [History Confirmed 05/02/18] selenium 200 mcg capsule 200 mcg PO DAILY 05/02/18 [History Confirmed 05/02/18] PENDING SALE TO [facility] Medical History Crohn disease (Acute) Severe headache (Acute) Surgical History History of cholecystectomy (Acute) History of tonsillectomy (Acute) Family History Other Diabetes Hypertension Thyroid disorder Social History Smoking Status: Never smoker alcohol intake: never HPI HPI Chief Complaint: [facility], ER F/U Details: DIANE DESHPANDE, is a 27 F who presents to the office today for f/u of electrical injury sustained Saturday04/30/2019. She was seen in the ER a [facility] initially. 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 hand and experienced quite [...] no acute distress Orientation: alert, oriented x3 [facility] Head: normal to inspection, normocephalic Ears: hearing [...] left middle fingertip, remaining exam WNL) Coordination: zrbhlw-vj-mtis test normal Extrem General: normal to inspection, [...] 1356 <Electronically signed by Jaimie WOODSON> Date ___ Jaimie WOODSON Cosigner Signature: Date ___ (if applicable) CC: May Alicia Start: 04-30-2018 End: 04-30-2018 Discharge Instruction Comments: See Note; NOTES: [facility] Medical Records Department [address] [place] [address] Discharge Instruction 04/30/18 2259 MR#: [id number] Acct: [id number] Name: DIANE DESHPANDE Rep #: [id number] : 1990 27 From: Elton Donaldson MD [...] your Primary Care Provider. Call [facility] ([phone]) or report to the closest Emergency Room. Call 911 if necessary. 04/30/18 7482 <Electronically signed by Elton Donaldson MD> Date ___ Elton Donaldson MD Cosigner Signature (If Indicated): Date ___ CC: May Lawson Start: 04-30-2018 End: 04-30-2018 Emergency Department Summary Comments: See Note; NOTES: [facility] Medical Records Department [address] [place] [address] Emergency Department Summary 04/30/18 2257 MR#: [id number] Acct: [id number] Name: DIANE DESHPANDE Rep #: [id number] : 1990 27 From: Elton Donaldson MD PCP: May Alicia DO Status: PRE ER - ER Visit Summary Date of Service: 04/30/18 Chief Complaint: [] Fingertip shock History of Present Illness: The patient is a 27 F patient was plugging in an iPod and received a shock from electrical outlet here at [facility]. She works here felt a shock on [...] to finger This note was generated with AskNshare dictation software. It may contain incorrect words, spelling, and punctuation that were not noted in review of the chart prior to signing ED Disposition - Plan for ED Patient: Chief Complaint: Other, Pain/Inj Referrals: May Alicia, DO [Primary Care Provider] - What to do if you have Problems For any increased pain, shortness of breath, bleeding, nausea or vomiting, chest pain, or any unexpected problems, contact your Primary Care Provider. Call [facility] ([phone]) or report to the closest Emergency Room. Call 911 if necessary. 04/30/18 7718 <Electronically signed by Elton Donaldson MD> Date ___ Elton Donaldson MD Cosigner Signature (If Indicated): Date ___ CC: May Lawson Start: 04-23-2018 End: 04-23-2018 Pelvic (Non ) Comments: See Note; NOTES: [facility] Imaging Services [address] [place] [address] [place] [address] Pelvic (Non ) MR#: [id number] Acct: [id number] Name: DIANE DESHPANDE Rep #: [id number] : 1990 F 27 From: Niraj Liriano MD PCP: May Alicia DO Status: REG CLI Study: Pelvic (Non ) Date of Exam: 04/23/18 Exam# [id number] Ordering Dr: Natalie Bacon MD STUDY: ULTRASOUND OF THE FEMALE PELVIS - COMPLETE REASON FOR EXAM: Female, 27 years old. Irregular menses. LMP: April 18, 2018. TECHNIQUE: Transvaginal TECHNICAL QUALITY: Adequate. COMPARISON: Comparison is made with prior examination dated July 08, 2014. ___ FINDINGS: The uterus is anteverted and is [...] was 991 ml. Polycystic ovary disease: No. ___ US/Pelvic (Non ) IMPRESSION: Small fundal fibroid. Electronically Signed: Niraj Liriano MD at 14:04 EST Tel [phone], Service support , CC: Natalie Bacon MD; May Alicia DO Electric Mule Driver: Signed May Alicia Start: 04-23-2018 End: 04-23-2018 Transvaginal Non- Comments: See Note; NOTES: [facility] Imaging Services [address] [place] [address] Transvaginal Non- MR#: [id number] Acct: [id number] Name: DIANE DESHPANDE Rep #: [id number] : 1990 F 27 From: Niraj Liriano MD PCP: May Alicia DO Status: REG CLI Study: Transvaginal Non- Date of Exam: 04/23/18 Exam# [id number] Ordering Dr: Natalie Bacon MD STUDY: ULTRASOUND OF THE FEMALE PELVIS - COMPLETE REASON FOR EXAM: Female, 27 years old. Irregular menses. LMP: April 18, 2018. TECHNIQUE: Transvaginal TECHNICAL QUALITY: Adequate. COMPARISON: Comparison is made with prior examination dated July 08, 2014. ___ FINDINGS: The uterus is anteverted and is [...] was 991 ml. Polycystic ovary disease: No. ___ US/Transvaginal Non- IMPRESSION: Small fundal fibroid. Electronically Signed: Niraj Liriano MD at 14:04 EST Tel [phone], Service support , CC: Natalie Bacon MD; May Alicia DO Electric Mule Driver: Signed May Alicia Start: 10-01-2017 End: 10-01-2017 PT D/C Summary (1) Comments: See Note; NOTES: [facility] [address] [place] [address]. [address] [place], [place] [address] Fax REHABILITATION SERVICES DISCHARGE SUMMARY MR#: [id number] Acct: [id number] Name: DIANE DESHPANDE Rep #: [id number] : 1990 26 From: Jameel Dawson DPT, OCS, CSCS Referring DrOzzie: May Alicia DO Status: REG RCR Insurance: [facility] S[employer]URANCE HP - PT [...] only taken once last and it knocked AU out for a little while but it came back worse. Was 6/10 or higher most of weekend. Neck pain is allright. Motion feels worse. Not doing ex as much as should be. 90% better neck and arm, 50% overall as AU continues. Not sure when f/u is with neuro, awaiting to see imitek. - Pain Neck pain Pain Intensity (Out of 10): 0 L UE Pain Intensity (Out of 10): 0 AU Pain Intensity (Out of 10): 6 - Objective Objective/Function: Motion is full and painfree in neck. Strength in UE 4/5 without pain. Pt has no problems with neck pain but AU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 #: [id number] : 1990 23 From: Azeem Guillen MD PCP: May Alicia DO Status: [facility] ER DATE OF SERVICE: 06/19/2014 CHIEF COMPLAINT: [...] Discharge. DIAGNOSIS: Gastroenteritis. Azeem Guillen M.D. T: VINNIE JOB: [id number] 06/20/14 0430 <Electronically signed by Azeem Guillen MD> Date ___ Azeem Guillen MD CC: May Alicia DO Date Dictated: 06/19/142346 Date Transcribed: 06/19/142346 Electric Mule Driver: Signed May Alicia Start: 06-19-2014 End: 06-20-2014 Discharge Instruction Comments: See Note; NOTES: [facility] Medical Records Department [address] [place] [address] Discharge Instruction 06/19/142329 MR#: [id number] Acct: [id number] Name: DIANE DESHPANDE Rep #: [id number] : 1990 23 From: Azeem Guillen MD PCP: May Alicia DO Status: [facility] ER ED Disposition - Plan for ED [...] any unexpected problems, contact your doctor. Call [facility] ) or report to the closest Emergency Room. Call 911 if necessary. 06/19/14 2333 <Electronically signed by Azeem Guillen MD> Date ___ Azeem Guillen MD Cosigner Signature (If Indicated): Date ___ CC: May Lawson Start: 11-03-2013 End: 11-03-2013 Emergency Department Summary Comments: See Note; NOTES: [facility] [place] Medical Records Department [address] [place] [address] Emergency Department Summary MR#: [id number] Acct: [id number] Name: DIANE DESHPANDE Rep #: [id number] : 1990 23 From: Akin Sheth MD PCP: May Alicia DO Status[facility] DATE OF SERVICE: 10/20/2013 CHIEF COMPLAINT: Loss [...] Dr. Akin Sheth MD T: NTS JOB: [id number] 11/03/13 0037 <Electronically signed by Akin Sheth MD> Date ___ Akin Sheth MD CC: May Alicia DO Date Dictated: 10/24/13840 Date Transcribed: 10/24/13840 Electric Mule Driver: Signed May Alicia Work Phone: Start: 10-21-2013 End: 10-21-2013 12 lead ECG Comments: See Note; NOTES: [facility] [place] Cardiovascular Services [address] [place] [id number] 12 Lead EKG 10/20/13313 MR#: [id number] Acct: [id number] Name: DIANE DESHPANDE Rep #: [id number] : 1990 23 From: Lewis Farrar MD [...] abnormality Confirmed by GALI SPENCER, LEWIS ([id number]), dictionary editor ALONDRA BRIONES ([id number]) on 2013 9:16:34 AM Referred By: Akin Sheth Confirmed By:LEWIS FARRAR MD CC: May Alicia DO Date Dictated: 10/20/13313 Date Transcribed: 10/20/13313 Electric Mule Driver: Signed May Alicia Start: 10-20-2013 End: 10-20-2013 Discharge Instruction Comments: See Note; NOTES: [facility] [place] Medical Records Department [address] [place] [address] Discharge Instruction 10/20/13 0438 MR#: [id number] Acct: [id number] Name: DIANE DESHPANDE Rep #: [id number] : 1990 23 From: Akin Sheth MD [...] closest Emergency Room. Call 911 if necessary. 10/20/139 <Electronically signed by Akin Sheth MD> Date ___ Akin Sheth MD CC: May Lawson Work Phone: Start: 10-20-2013 End: 10-20-2013 Brain/Head without Contrast Comments: See Note; NOTES: [facility] [place] Imaging Services [address] [place] [address] CAT Scan Report MR#: [id number] Acct: [id number] Name: DIANE DESHPANDE Rep #: [id number] : 1990 F 23 From: Prudencio Muller MD PCP: May Alicia DO Status: REG ER Study: Brain/Head without Contrast Date of Exam: 10/20/13 Exam# [id number] Ordering Dr: Akin Sheth MD STUDY: CT BRAIN WITHOUT CONTRAST REASON FOR EXAM: Female, 23 years old. Dizziness. RADIATION DOSAGE (If Supplied By Facility): CTDIvol = ( 58.11 ) mGy, DLP = ( 800.04 ) mGycm TECHNIQUE: Transaxial CT imaging of the brain was performed without administration of intravenous contrast material. COMPARISON: None. ___ FINDINGS: Normal soft tissue structures. Normal calvarium. Normal size ventricles and extra-axial spaces for the patient's age. Normal white matter tracts of the cerebral hemispheres. Normal basal ganglia and thalami. Normal brainstem. Normal cerebellum. There is no intracranial hemorrhage. There are no findings of an acute ischemic infarction. Normal visualized paranasal sinuses. ___ IMPRESSION: Normal unenhanced CT scan of the brain. Electronically Signed: Prudencio Muller MD at 3:48 EDT , Service support [phone], CC: Akin Sheth MD; May Alicia DO Electric Mule Driver: Signed May Alicia Work Phone: Adenoid excision Cary solis Comment on above: 10/18/16 Adenoid excision Amber Audrey b Comment on above: 10/18/16 Adenoid excision Destiny benedict Comment on above: 10/18/16 Adenoid excision Cary solis Comment on above: 10/18/16 Adenoid excision Sindhu Grav ius BRANDING MACHINE OPERATOR Comment on above: 10/18/16 Adenoid excision LIBORIO willingham LPN Comment on above: 10/18/[address] e detection [address] May Alicia Work Phone: Colonoscopy Amber Rizwan Comment on above: 2019 Colonoscopy Destiny Carrillo Comment on above: 2019 Colonoscopy Sindhu Sepulveda CMA Comment on above: 2019 Colonoscopy LIBORIO Torrez LPN Comment on above: 2019 Endoscopy Amber Rizwan Comment on above: 2019 Endoscopy Destiny Carrillo Comment on above: 2019 Endoscopy Sindhu Sepulveda CMA Comment on above: 2019 Endoscopy LIBORIO Shan PROJECTION TECHNICIAN Comment on above: [address] Maria Elena Alicia Work Phone: Gallbladder Surgery Cary jenkins Comment on above: October 2014 Gallbladder Surgery Amber S breanab Comment on above: October 2014 Gallbladder Surgery Destinyricky motley Comment on above: October 2014 Gallbladder Surgery Cary Carrion sseirma Comment on above: October [address] May Alicia Work Phone: Lactoferrin measurement Dr. May Alicia Work Phone: Operation on gallbladder Destiny Lorena PROJECTION TECHNICIAN Comment on above: October 2014 Operation on gallbladder Sindhu Gravius BRANDING MACHINE OPERATOR Comment on above: October 2014 Operation on gallbladder LIBORIO Shan PROJECTION TECHNICIAN Comment on above: October 2014 Ova OR parasites identification Dr. May Alicia Work Phone: Tonsillectomy Cary andres Comment on above: 10/18/16 Tonsillectomy Amber Astorga Comment on above: 10/18/16 Tonsillectomy Destiny Carrillo Comment on above: 10/18/16 Tonsillectomy Cary andres Comment on above: 10/18/16 Tonsillectomy Sindhu Gravius BRANDING MACHINE OPERATOR Comment on above: 10/18/16 Tonsillectomy LIBORIO Torrez LPN Comment on above: 10/18/16 Plan of Treatment Date Care Activity Detail Author Start: 02-23-2025 ambulatory Ambulatory Facility:[facility] Start: 08-05-2024 Liquid based cervical cytology screening [facility] Start: 07-29-2024 Following clinical pathway protocol [facility] Start: 05-17-2023 Following clinical pathway protocol [facility] Start: 02-18-2023 Procedure Education Eprescribed prescriptions (G8553) [facility] Work Phone: Start: 02-18-2023 Provider Instructions for Treatment Reviewed Lab [facility]; [facility] Work Phone: Start: 01-02-2023 IgA [Mass/volume] in Serum or Plasma [facility] Start: 01-02-2023 IgE [Units/volume] in Serum or Plasma [facility] Start: 01-02-2023 IgG [Mass/volume] in Serum or Plasma [facility] Start: 01-02-2023 IgM [Mass/volume] in Serum or Plasma [facility] Start: 01-02-[address] [facility] Start: 12-13-2022 Colonoscopy w/biopsy single/multiple COLONOSCOPY AND BIOPSY [facility] Start: 12-13-2022 Egd transoral biopsy single/multiple EGD BIOPSY SINGLE/MULTIPLE [facility] Start: 12-13-[address] [facility] Start: 03-26-2022 C-reactive protein C-REACTIVE PROTEIN (18706) [facility]; [facility] Work Phone: Start: 03-26-[address] [facility] Work Phone: Start: 03-26-[address] [facility] Work Phone: Start: 03-21-2022 Procedure Education Eprescribed prescriptions (G8553) [facility]; [facility] Work Phone: Start: 03-21-2022 Provider Instructions for Treatment Reviewed [facility]; [facility] Work Phone: Start: 03-21-2022 Protein electrophoretic fractj&quantj serum [facility]; [facility] Work Phone: Start: 03-12-2022 Colonoscopy w/biopsy single/multiple COLONOSCOPY AND BIOPSY [facility] Start: 03-12-2022 Egd transoral biopsy single/multiple EGD BIOPSY SINGLE/MULTIPLE [facility] Start: 03-12-[address] [facility] Start: 12-26-2021 Ova and parasites identified in Unspecified specimen by Light microscopy [facility] Work Phone: Start: 12-26-[address] [facility] Work Phone: Start: 12-22-[address] [facility] Work Phone: Start: 12-22-[address] [facility] Work Phone: Start: 12-22-[address] [facility] Work Phone: Start: 12-22-2021 [facility] Work Phone: Start: 03-15-2021 Procedure Education Eprescribed prescriptions (G8553) [facility]; [facility] Work Phone: Start: 02-24-2020 Provider Instructions for Treatment Reviewed Lab [facility] Work Phone: Start: 10-21-2019 Procedure Education Eprescribed prescriptions (G8553) [facility] Work Phone: Start: 10-21-2019 Provider Instructions for Treatment [facility] Work Phone: Start: 10-21-2019 Comprehensive metabolic panel METABOLIC PANEL, COMPREHENSIVE (05575) [facility] Work Phone: Start: 10-21-2019 Blood count complete auto&auto difrntl wbc CBC W/AUTO DIFF WBC (56168) [facility] Work Phone: Start: 10-21-2019 Cobalamin (Vitamin B12) [Mass/Vol] VITAMIN B-12 (CYANOCOBALAMIN) (89518) [facility] Work Phone: Start: 10-21-2019 Lipoprotein blood efrain numbers & subclasses NMR Profile (68156) [facility] Work Phone: Start: 07-22-2019 Procedure Education Eprescribed prescriptions (G8553) [facility] Work Phone: Start: 07-22-2019 Provider Instructions for Treatment Reviewed Lab [facility] Work Phone: Start: 02-16-2019 Cobalamin (Vitamin B12) [Mass/Vol] VITAMIN B-12 (CYANOCOBALAMIN) (08375) [facility] Work Phone: Start: 02-16-2019 Glucose [Mass/Vol] GLUCOSE (01101) [facility] Work Phone: Start: 02-16-2019 Lipoprotein blood efrain numbers & subclasses NMR Profile (98764) [facility] Work Phone: Start: 02-12-2018 [...] Start: 09-06-2015 Antibody herpes smplx type 1 [facility] Work Phone: Start: 09-06-2015 Antibody herpes smplx type 2 Herpes Simplex 1&2 IGG (73732) [facility] Work Phone: Start: 08-22-2015 Provider Instructions for Treatment Follow up in 2 weeks [facility] Work Phone: Start: 08-15-2015 Patient Education Sore throat: diagnosis and treatment [facility] Work Phone: Start: 08-15-2015 Provider Instructions for Treatment [facility] Work Phone: Start: 09-15-2014 Provider Instructions for Treatment [facility] Work Phone: Start: 08-10-2014 C-reactive protein C-Reactive Protein (96758) [facility]; [facility] Work Phone: Start: 08-10-2014 CRP [Mass/Vol] C-Reactive Protein (23255) [facility] Work Phone: Start: 07-26-2014 Assay of lipase LIPASE (74087) [facility] Work Phone: Start: 07-26-2014 Amylase [Catalytic activity/Vol] AMYLASE (26989) [facility] Work Phone: Start: 07-26-2014 Assay of amylase AMYLASE (94380) [facility]; [facility] Work Phone: Start: 07-26-2014 Iaad ia hpylori stool HELICO PYLORI, STOOL, INFCT ANTIGEN (79637) [facility] Work Phone: Start: 07-26-2014 Immunoassay analyte qual/semiqual multiple step IMMUNOASSAY, ANALYTE (NON-INFECT) (27188) celiac profile [facility] Work Phone: Start: 07-26-2014 Patient Education Celiac Disease and the Gluten-Free Diet: celiac disease [facility] Work Phone: Start: 06-22-2014 Provider Instructions for Treatment [facility] Work Phone: Start: 06-22-2014 Ova&parasites direct smears concentration & id OVA & PARASITE DIR SMEAR (98237) [facility] Work Phone: Start: 06-22-2014 Blood occult peroxidase actv qual feces 1 deter OCCULT BLOOD FECES SCREEN (37872) [facility] Work Phone: Start: 06-22-2014 Leukocyte assmt fecal qual/semiquantitative LEUKOCYTE COUNT, FECAL (36714) [facility] Work Phone: Start: 06-22-2014 Culture bacterial any source anaerobic iso&id C-DIFFICILE, STOOL (25643) [facility] Work Phone: Start: 06-22-2014 Cul bact stool aerobic isol salmonella&shigell BRADFORD CULTURE-STOOL (62137) [facility] Work Phone: Start: 06-10-2014 Procedure Education Eprescribed prescriptions (G8553) [facility] Work Phone: Start: 06-10-2014 Virus centrifuge enhncd id imfluor stain ea Influenza A&B Viral Culture (49356) [facility] Work Phone: Start: 05-03-2014 [...] xcpt urine blood/stool aerobic isol BRADFORD CULTURE-OTHER (51897) [facility] Work Phone: Start: 03-03-2013 Provider Instructions for Treatment Follow up Mar 09 2013 [facility] Work Phone: Start: 02-27-2013 Patient Education Strep Test: pharyngitis [facility] Work Phone: Start: 02-27-2013 Provider Instructions for Treatment [facility] Work Phone: Start: 02-25-2013 Provider Instructions for Treatment *Antibiotic Usage Education - Female [facility] Work Phone: Start: 02-25-2013 Blood count manual cell count each CBC WITH MANUAL DIFF (92489) [facility] Work Phone: Start: 02-25-2013 Comprehensive metabolic panel METABOLIC PANEL, COMPREHENSIVE (11803) [facility] Work Phone: Start: 02-25-2013 Antibody tomi-sanchez eb virus early antigen ea EBV Panel (79204) [facility] Work Phone: Start: 12-25-2012 Provider Instructions for Treatment Follow up in 5 weeks [facility] Work Phone: Start: 12-03-2012 Provider Instructions for Treatment [facility] Work Phone: Start: 11-18-2012 Patient Education Fainting (Syncope) *: fainting [facility] Work Phone: Start: 08-12-2012 Cobalamin (Vitamin B12) [Mass/Vol] VITAMIN B12 AND FOLATES (21966) [facility] Work Phone: Start: 08-12-2012 Cyanocobalamin vitamin b-12 VITAMIN B12 AND FOLATES (51604) [facility]; [facility] Work Phone: Start: 04-14-2012 Assay of intrinsic factor INTRINSIC FACTOR (30273) [facility] Work Phone: Start: 04-14-2012 Hepatic function panel HEPATIC FUNCTION PANEL (67841) [facility] Work Phone: Start: 04-14-2012 Acute hepatitis panel HEPATITIS PANEL (54756) [facility] Work Phone: Start: 04-14-2012 Immunoassay analyte qual/semiqual multiple step ANTIMITOCHONDRIAL ANTIBODY (95042) [facility] Work Phone: Start: 04-14-2012 Assay of [id number] TRANSFERRIN (07857) [facility]; [facility] Work Phone: Start: 04-14-2012 Transferrin [Mass/Vol] TRANSFERRIN (04821) [facility] Work Phone: Start: 04-14-2012 Assay of glutamyltrase gamma GGT (GAMMA GLUTAMYLTRANSFERASE) (94571) [facility]; [facility] Work Phone: Start: 04-14-2012 Gamma glutamyl transferase [Catalytic activity/Vol] GGT (GAMMA GLUTAMYLTRANSFERASE) (55247) [facility] Work Phone: Start: 04-14-2012 Assay of ferritin FERRITIN (54334) [facility]; [facility] Work Phone: Start: 04-14-2012 Ferritin [Mass/Vol] FERRITIN (25045) [facility] Work Phone: Start: 04-14-2012 Antibody tomi-sanchez eb virus early antigen ea EBV IGM ANTIBODY (77242) [facility] Work Phone: Start: 04-14-2012 Antibody cytomegalovirus cmv igm CMV IGM ANTBDY (09035) [facility] Work Phone: Start: 04-14-2012 Ceruloplasmin CERULOPLASMIN (16278) [facility] Work Phone: Start: 04-14-2012 Fluorescent nonnfct agt antb screen ea antibody ASM (ANTI SMOOTH MUSCLE ANTIBODY) (81085) [facility] Work Phone: Start: 04-14-2012 Microsomal antibodies each ANTI-LIVER/KIDNEY MICROSOMAL ANTIBODY (44585) [facility] Work Phone: Start: 04-02-2012 Provider Instructions for Treatment [facility] Work Phone: Start: 04-02-2012 Clotting inhibitors protein s total Protein S Profile (26423) [facility]; [facility] Work Phone: Start: 04-02-2012 Clotting inhibitors protein c antigen Protein C Profile (85010) [facility]; [facility] Work Phone: Start: 04-02-2012 Assay of homocysteine Homocysteine, Plasma (07899) [facility] Work Phone: Start: 04-02-2012 Beta 2 glycoprotein i antibody each Antiphospholipid atb (68110) [facility] Work Phone: Start: 04-02-2012 Clotting inhibitrs antithrombn iii antigen assay ANTICOAG ANTTHROMB III & ASSAY (91538) [facility] Work Phone: Start: 04-02-2012 Clotting inhibitors antithrombin iii activity ANTITHROMBIN III ACTIVTY (39416) [facility] Work Phone: Start: 04-02-2012 Clotting factor ii prothrombin specific CLOTTING FACTOR II (92847) [facility] Work Phone: Start: 04-02-2012 Molecule gel electrophor Factor V Leiden (69425) [facility] Work Phone: Start: 04-02-2012 Molecule nucleic ampli, each MTHFR (74490) [facility] Work Phone: Start: 04-02-2012 HbA1c (Bld) [Mass fraction] Hemoglobin Glyclated (HGB A1C) (20910) [facility] Work Phone: Start: 04-02-2012 Hemoglobin glycosylated a1c Hemoglobin Glyclated (HGB A1C) (99879) [facility]; [facility] Work Phone: Start: 04-02-2012 Antinuclear antibodies maxine MAXINE (ANTINUCLEAR ANTIBODY) (32099) [facility]; [facility] Work Phone: Start: 04-02-2012 Nuclear Ab IF (S) [Titer] MAXINE (ANTINUCLEAR ANTIBODY) (59836) [facility] Work Phone: Start: 04-02-2012 Protein [Mass/Vol] [facility] Work Phone: Start: 04-02-2012 Protein electrophoretic fractj&quantj serum Serum Protein Electrophoresis (SPEP) (38814) [facility]; [facility] Work Phone: Start: 04-02-2012 Assay of thyroid stimulating hormone tsh TSH (THYROID STIMULATING HORMONE) (07906) [facility]; [facility] Work Phone: Start: 04-02-2012 Cobalamin (Vitamin B12) [Mass/Vol] VITAMIN B-12 (CYANOCOBALAMIN) (86337) [facility] Work Phone: Start: 04-02-2012 Cyanocobalamin vitamin b-12 VITAMIN B-12 (CYANOCOBALAMIN) (13026) [facility]; [facility] Work Phone: Start: 04-02-2012 TSH Qn TSH (THYROID STIMULATING HORMONE) (53912) [facility] Work Phone: Start: 04-02-2012 Blood count complete automated CBC & PLATELETS (AUTO) (33674) [facility] Work Phone: Start: 04-02-2012 Comprehensive metabolic panel METABOLIC PANEL, COMPREHENSIVE (33565) [facility] Work Phone: Start: 04-02-2012 Sedimentation rate rbc non-automated SED RATE ERYTHROCYTE (63263) [facility] Work Phone: Start: 02-22-2010 Blood occult peroxidase actv qual feces 1 deter Stool Guiac, Office (28806) [facility] Work Phone: Comment on above: neg Start: 02-22-2010 Provider Instructions for Treatment FOLLOW UP IN 2 WEEKS with ILIANA [facility] Work Phone: Clostridioides diffi cile DNA [Presence] in Unspecified specimen by TEDDY with probe detection [facility] Cytology report of Cervical or vaginal smear or scraping Cyto stain.thin prep [facility] Elastase, pancreatic (el-1), fecal; quantitative [facility] Elastase.pancreatic [Presence] in Stool [facility] Fat [Mass/mass] in Stool [facility] Fat [Presence] in Stool [facility] Fat.neutral [Presenc e] in Stool [facility] Gastrointestinal pathogens panel - Stool by TEDDY with probe detection [facility] General foods mix RA ST test [facility] Work Phone: Giardia lamblia anti gen assay [facility] Lactoferrin [Presenc e] in Stool by Immunoassay [facility] Work Phone: Lactoferrin [Presenc e] in Stool by Immunoassay [facility] Lactoferrin [Presenc e] in Stool by Immunoassay [facility] Lactoferrin [Presenc e] in Stool by Immunoassay [facility] Ova and parasites identified in Unspecified specimen by Light microscopy [facility] Work Phone: Ova and parasites identified in Unspecified specimen by Light microscopy [facility] Path report.final Dx Spec [facility] Patient Education Using Crutches : [id number] Achilles Tendon Rupture [facility] Work Phone: Patient referral [facility] Work Phone: Procedure [facility] Work Phone: Procedure [facility] Protein measurement [facility] Work Phone: Protein measurement [facility] Protein measurement [facility] Protein measurement [facility] Protein measurement [facility] Work Phone: [facility] Work Phone: [facility] Work Phone: [facility] Work Phone: [facility] Work Phone: [facility] Work Phone: [facility] Work Phone: [facility] Work Phone: [facility] Work Phone: [facility] Work Phone: [facility] Work Phone: [facility] Work Phone: [facility] Work Phone: [facility] Work Phone[facility] Work Phone: [facility] Work Phone: [facility] Work Phone: [facility] Work Phone: [facility] Work Phone: [facility] Work Phone: [facility] Immunizations Immunization Date Immunization Notes Care Provider [facility] 04-09-2024 influenza, seasonal, injectable, preservative free Dr. May Alicia DO Work Phone: [facility] 02-28-2023 influenza, injectabl e, quadrivalent, preservative free Dr. May Alicia Work Phone: [facility] 03-26-2022 influenza, injectabl e, quadrivalent, preservative free Dr. May Alicia Work Phone: [facility] 03-26-2022 influenza, seasonal, injectable Dr. May Alicia Work Phone: [facility] 03-09-2020 influenza, injectabl e, quadrivalent, preservative free Dr. May Alicia Work Phone: [facility] 03-09-2020 influenza, seasonal, injectable Dr. May Alicia Work Phone: [facility] 03-24-2019 influenza, injectabl e, quadrivalent, preservative free Dr. May Alicia Work Phone: [facility] 03-24-2019 influenza, seasonal, injectable Dr. May Alicia Work Phone: [facility] 02-28-2018 influenza, injectabl e, quadrivalent, preservative free Dr. May Alicia Work Phone: [facility] 02-28-2018 influenza, seasonal, injectable Dr. May Alicia Work Phone: [facility] Payers Date Payer Category Payer Self-pay [id number] 2023 Private Health Insurance [id number] 2016 Unknown [id number] Unknown Unknown [id number] Unknown [facility] [id number] Unknown [id number] Unknown [id number] Unknown [id number] 2.840.1.465221.3.579.2.462 Unknown [id number] 2.840.1.311039.3.579.2.462 Unknown [id number] 2.840.1.309541.3.579.2.462 Unknown [id number] 2.840.1.523430.3.579.2.462 Unknown [id number] 2.16.840.1.561701.3.579.2.462 Unknown [id number] 2.16.840.1.503515.3.579.2.462 Unknown [id number] 2.16.840.1.733740.3.579.2.462 Unknown [id number] 2.16.840.1.375479.3.579.2.462 Unknown [id number] 2.16.840.1.798567.3.579.2.462 Unknown [id number] 2.16.840.1.029417.3.579.2.462 Unknown [id number] 2.16.840.1.481419.3.579.2.462 Unknown [id number] 2.16.840.1.590268.3.579.2.462 Unknown [id number] 2.16.840.1.459907.3.579.2.462 Unknown [id number] 2.16.840.1.008851.3.579.2.462 Unknown [id number] 2.16.840.1.871505.3.579.2.462 Unknown [id number] 2.16.840.1.451149.3.579.2.462 Unknown [id number] 2.16.840.1.157837.3.579.2.462 Unknown [id number] 2.16.840.1.974642.3.579.2.462 Unknown [id number] 2.16.840.1.698814.3.579.2.462 Social History Date Type Detail Facility Caffeine Use Caffeine Use [facility] Work Phone: Comment on above: 1 -2 qd Exercises 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 Start: 07-20-2020 None [facility] Start: 07-20-2020 Alone [facility] Start: 08-24-2019 Non-smoker [facility] Start: 1990 Sex Assigned At Female W [facility] Start: 06-25-2023 Tobacco smoking status NHIS Never smoked tobacco (finding) [facility] Start: 08-09-2024 End: 08-16-2024 Sex Female (finding) [facility] NEGATED: Highlighted row [facility] Goals Date Patient Goal Desired Activity /State Functional Status Date Assessment Result Facility 02-15-2020 LP-IR Score LP-IR Score 81 [facility] Work Phone: Comment on above: INSULIN RESISTANCE M ARKER <--Insulin Sensitive Insulin Resistant--> Percentile in Reference PopulationInsulin Resistance ScoreLP-IR Score Low 25th 50th 75th High <27 27 45 63 >63LP-IR Score is inaccurate if patient is non-fasting. .The LP-IR score is a laboratory developed index that has beenassociated with insulin resistance and diabetes risk and should beused as one component of a physician's clinical assessment. Test(s) 391033-NKP-E ; 202252-SIO-R; 130103-Sqakvrktnlwqg; 769918-Ckkriqsjbfs, Total; 563641-OKG-D (Total); 835202-Ncjsl LDL-P; 620149-TGL Size; 612376-HI-WW Scorewas developed and its performance characteristics determinedby [facility]. It has not been cleared or approved by the Foodand Drug Administration.PATIENT WAS FASTINGPERFORMED BY: BN [facility] [id number] [facility] [id number] BY: CB [facility] [id number] [facility] [id number] 02-19-2019 LP-IR Score LP-IR Score 61 [facility] Work Phone: Comment on above: INSULIN RESISTANCE M ARKER <--Insulin Sensitive Insulin Resistant--> Percentile in Reference PopulationInsulin Resistance ScoreLP-IR Score Low 25th 50th 75th High <27 27 45 63 >63LP-IR Score is inaccurate if patient is non-fasting. .The LP-IR score is a laboratory developed index that has beenassociated with insulin resistance and diabetes risk and should beused as one component of a physician's clinical assessment. Test(s) 327903-JNP-N ; 884970-FUN-X; 454287-PML-L; 870589-Nbpefjpgncjkb; 947522-Hoqfqunijod, Total; 235457-YJJ-R (Total);812367-Jtumd LDL-P; 106122-XLN Size; 699452-HW-YQ Scorewas developed and its performance characteristics determinedby [facility]. It has not been cleared or approved by the Foodand Drug Administration.PATIENT WAS FASTINGPERFORMED BY: BN [facility] [id number] [facility] [id number] BY: CB [facility] [id number] [facility] [id number] Mental Status Date Assessment Result Facility 07-29-2024 Cognitive function Voice/Name [facility] Work Phone: 05-17-2023 [facility];Time [facility] Work Phone: 12-13-2022 Cognitive function Level Of Cons ciousness Awake;Alert;Appropriate;Follow s Commands [facility] Work Phone: 12-13-2022 [facility];Place;Time [facility] Work Phone: 03-12-2022 Cognitive function Voice/Name [facility] Work Phone: Clinical Notes 05-30-2022 to 11-04-2024 Note Date & Type Note Facility 11-04-2024 Evaluation note Diagnosis Onset Date Resolution Daytime sleepiness acute November 042024 2:50pm Crohn's disease chronic November 04, 2024 2:50pm IBS (irritable bowel syndrome) chronic November 04, 2024 2 :50pm Generalized muscle ache resolved J 2024 2:50pm [facility] Work Phone: 1(154) 494-729303-05-2025 NotePap Smear Specimen AdequacyMarch 2024 12:59amComment.Satisfactory for evaluation. Endocervical and/or squamous metaplasticcells (endocervical component)are present.Areas of partially obscuring blood are present.[facility] INTER[facility]ED A#[id number]. Vincent HospitalComment on above:Satisfactory for evaluation. Endocervical and/or squamous metaplasticcells (endocervical component)are present.Areas of partially obscuring blood are present.07-30-2024 Evaluation note* Diagnosis Onset Date Resolution Status Admit Date Daytime hypersomnia acute Febru 2024 2:01pm Obesity chronic July 30, 2024 2:01pm Dysmenorrhea acute August 05, 025 2:33pm Family history of uterine cancer acute August 05, 2024 2:33pm Menorrhagia with regular cycle acute August 05, 2024 2:33pm Uterine fibroid acute August 2:33pm Crohn's disease chronic August 2:33pm [facility] [employer] Work Phone: 1(203) 304-520401-17-2025 Evaluation note* Diagnosis Onset Date Resolution Status Admit Date Daytime sleepiness acute 2024 2:11pm Crohn's disease chronic June 032024 2:11pm IBS (irritable bowel syndrome) chronic June 19 2:11pm Generalized muscle ache resolved J anuary 2024 2:11pm ASCUS with positive high ris k HPV acute June 29 2:06pm Dysmenorrhea acute June 2:06pm Family history of uterine cancer acute June 29 2:06pm Menorrhagia with regular cycle acute June 29 2:06pm Uterine fibroid acute June 042024 2:06pm Encounter for routine gynecological examination noneactive 2024 2:06pm Daytime hypersomnia acute Junua 2024 2:19pm Obesity chronic July 03, 2024 2:19pm Daytime hypersomnia acute Febru 2024 2:01pm Obesity chronic July 30, 2024 2:01pm Dysmenorrhea acute August 05, 2 025 2:33pm Family history of uterine cancer acute August 05, 2024 2:33pm Menorrhagia with regular cycle acute August 05, 2024 2:33pm Uterine fibroid acute August 2:33pm Crohn's disease chronic August 2:33pm [facility] Work Phone: 1(464) 948-838401-23-2024 NotePap Smear Specimen AdequacyJanuary 2023 5:03pmComment.Satisfactory for evaluation. Endocervical and/or squamous metaplasticcells (endocervical component)are present.[facility] INTER[facility]ED A#[id number]. Vincent HospitalComment on above:Satisfactory for evaluation. Endocervical and/or squamous metaplasticcells (endocervical component)are present.06-25-2023 NotePap Smear Specimen AdequacyJanuary 2023 6:03pmComment.Satisfactory for evaluation. Endocervical and/or squamous metaplasticcells (endocervical component)are present.[facility] INTER[facility]ACED A#[id number]. Vincent HospitalComment on above:Satisfactory for evaluation. Endocervical and/or squamous metaplasticcells (endocervical component)are present.12-13-2022 Procedure [facility] 12-13-2022 Procedure [facility]07-13-[address] [facility]07-13-2023 Procedure [facility] 05-30-2022 NotePap Smear Specimen AdequacyDecember 2021 8:47amComment. Satisfactory for evaluation. Endocervical and/or squamous metaplasticcells (endocervical component)are present.[facility] INTER[facility] A#[id number]. Vincent HospitalComment on above:Satisfactory for evaluation. Endocervical and/or squamous metaplasticcells (endocervical component)are present.05-30-2022 NotePap Smear Specimen AdequacyDecember 2021 8:47amComment.Satisfactory for evaluation. Endocervical and/or squamous metaplasticcells (endocervical component)are present.[facility] A#[id number]. [facility] Hospital Comment on above:Satisfactory for evaluation. 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 Work Phone: Chief complaint+Reason for visit Narrative* Chief Complaint [facility] TEST/[employer] COVID-19 EMPLOYEE LABS 2 WK FU E ORDERS OBWC/LEFT SHOULDER INJURY/[employer] INJURY CROHNS DISEASE PATENCY CAPSULE cap endo Reason for Visit Enteropathy Gastritis and duodenitis Crohn's disease Left shoulder strain Thoracic myofascial strain [facility] Work Phone: Chief complaint+Reason for visit Narrative* Chief Complaint COVID TEST/[employer] COVID-19 EMPLOYEE LABS 2 WK FU E ORDERS OBWC/LEFT SHOULDER INJURY/[employer] INJURY CROHNS DISEASE PATENCY CAPSULE cap endo 3 M FU Reason for Visit Enteropathy Gastritis and duodenitis Crohn's disease Left shoulder strain Thoracic myofascial strain Crohn's disease IBS (irritable bowel syndrome) [facility] Work Phone: Evaluation note* Diagnosis Onset Date Resolution Status Chronic diarrhea chronic Crohn's disease [facility] Work Phone: Evaluation note* Diagnosis Onset Date Resolution Status Chronic diarrhea chronic Crohn's disease chronic Crohn's disease chronic Crohn's disease [facility] Work Phone: Evaluation note* Diagnosis Onset Date Resolution Status Chronic diarrhea chronic Crohn's disease chronic Crohn's disease chronic Enteropathy acute Gastritis and duodenitis acu te Crohn's disease [facility] Work Phone: Evaluation note* Diagnosis Onset Date Resolution Status Crohn's disease chronic Enteropathy acute Gastritis and duodenitis acu te Crohn's disease chronic Left shoulder strain acute Thoracic myofascial strain a [facility] Work Phone: Evaluation note* Diagnosis Onset Date Resolution Status Enteropathy acute Gastritis and duodenitis acu te Crohn's disease chronic Left shoulder strain acute Thoracic myofascial strain a [facility] Work Phone: Evaluation note* Diagnosis Onset Date Resolution Status Enteropathy acute Gastritis and duodenitis acu te Crohn's disease chronic Left shoulder strain acute Thoracic myofascial strain [facility] Crohn's disease chronic IBS (irritable bowel syndrome) [facility] Work Phone: Evaluation note* Diagnosis Onset Date Resolution Status Crohn's disease chronic IBS (irritable bowel syndrome) [facility] Work Phone: Evaluation note* Diagnosis Onset Date Resolution Status Crohn's disease chronic IBS (irritable bowel syndrome) chronic Crohn's disease chronic IBS (irritable bowel syndrome) chronic [facility] Work Phone: Evaluation noteNo assessment information available [facility] Work Phone: Evaluation note* Diagnosis Onset Date Resolution Status Crohn's disease chronic IBS (irritable bowel syndrome) chronic ASCUS with positive high risk HPV acute Dysmenorrhea acute Menorrhagia with regular cycle acute Uterine fibroid acute Encounter for routine gynecological examination noneactive Monilial intertrigo noneacti ve [facility] Work Phone: History and physical note Author Valentin Friend [facility] December 13, 2022 6:35am Note Date/Time December 13, 2022 6:33 am [facility] Medical Records Department [address] [place] [address] History & Physical Exam 12/13/22 0633 MR#: [id number] Acct: [id number] Name: DIANE DESHPANDE Rep #:[id number] : 1990 32 From: Valentin Whitmore DO PCP: Dr. May Alicia, DO Status:RE G [facility] Location: [place] [address] History and Physical Date of Admission: 12/13/22 DIANE DESHPANDE, is a 32 F who presents to the office today for 3 month f/u Crohn'sand IBS. She loves her job. Was able to d/c lomotil. Was able to decrease colestipol from 2 g qhs to 1 g; next step is to try stopping colestipol. She hasBM once daily, normal formed stool. Trying to reintroduce foods, had loose stoolwith salad but not diarrhea. No nausea or acid reflux.? She continues to take pantoprazole. 03/2022 EGD [...] small bowel (per bx) and colon (elevated calprotectin).? Symptoms began in high school in 2009, started with bright red blood per rectum. She was first treated with budesonide and azathioprine; she reports they weren't effective. Then in 2014 she had cholecystectomy; that surgeon told her she didn't have Crohn's so she stopped treatment. She felt ok for awhile but then in 2018 she started having more issues--severe diarrhea allthe time. So she went to a GI doctor in [place] in 2019; he put her on Humira, [...] 3.3, which is low despite every 4 weeks.?05/2022 lab panel suggestive of Crohn's. ROS Const [...] and oriented x3 Quality Reporting Tobacco Screening ([facility] 138) Smoking Status: Never smoker Assessment and Plan Assessment and Plan (1) Crohn's disease: Status: Chronic Plan: IBD significantly improved with job change. She was able to discontinue lomotil,was able to decrease colestipol from 2 g [...] I have examined the patient and the H&P has been reviewed. There are no clinicalchanges since date of exam. 12/13/22 0635 <Electronically signed by Valentin Whitmore DO> Cosigner Signature (if applicable): CC: Dr. May Alicia DO; Valentin Whitmore DO~ Signed [facility] Work Phone: Instructions* Name Dates Details How to access [employer] Indication:BMI 40.0-44.9, adult Start:24-Feb-2020 Instruction Type:Patient Education How to access [employer] online - Detail Indication:BMI 40.0-44.9, adult Start:24-Feb-2020 Instruction Type:Patient Education Patient Instructions Indication:BMI 40.0-44.9, adult Start:24-Feb-2020 Instruction Type:Provider Instructions for Treatment How to access [employer] online Indication:Non-smoker Start:21-Oct-2019 Instruction Type:Patient Education How [...] Treatment How to access health informa tion [facility] Indication:Orthostatic hypotension Start:19-Feb-2014 Instruction Type:Patient Education How [...] disease Start:14-Apr-2012 Instruction Type:Provider Instructions for Treatment [facility] Work Phone: Instructions* Name Dates Details Patient Instructions Indication:BMI 40.0-44.9, adult Start:15-Mar-2021 Instruction Type:Provider Instructions for Treatment How to Access Health Informa tion Online using Patient Portal and [employer]rd [employer] Apps Indication:BMI 40.0-44.9, adult Start:15-Mar-2021 Instruction Type:Patient Education How to access health [...] disease Start:14-Apr-2012 Instruction Type:Provider Instructions for Treatment [facility]; [facility] Work Phone: Instructions* Name Dates Details Patient Instructions Indication:BMI 40.0-44.9, adult Start:15-Mar-2021 Instruction Type:Provider Instructions for Treatment How to Access Health Informa tion Online using Patient Portal and [employer] Indication:BMI 40.0-44.9, adult Start:15-Mar-2021 Instruction Type:Patient Education How to access health [...] Instructions for Treatment How to access health [email or web address] Indication:Encounter for well adult exam with abnormal [...] Type:Provider Instructions for Treatment How to access [employer] Indication:Orthostatic hypotension Start:19-Feb-2014 Instruction Type:Patient Education How to access health informa [employer] for iPhone and [employer] online - Detail Indication:Orthostatic hypotension Start:19-Feb-2014 Instruction Type:Patient Education Patient Instructions Indication:Orthostatic hypotension Start:19-Feb-2014 Instruction Type:Provider Instructions for Treatment How to access [email or web address] Indication:Orthostatic hypotension Start:05-Feb-2014 Instruction Type:Patient Education How [...] disease Start:14-Apr-2012 Instruction Type:Provider Instructions for Treatment [facility]; [facility] Work Phone: Instructions* Name Dates Details Patient Instructions Indication:BMI 40.0-44.9, adult Start:15-Mar-2021 Instruction Type:Provider Instructions for Treatment How to Access Health Informa tion Online using Patient Portal and [employer] Apps Indication:BMI 40.0-44.9, adult Start:15-Mar-2021 Instruction Type:Patient Education How to access health [...] disease Start:14-Apr-2012 Instruction Type:Provider Instructions for Treatment [facility]; [facility] Work Phone: Instructions* Name Dates Details Patient Instructions Indication:BMI 40.0-44.9, adult Start:21-Mar-2022 Instruction Type:Provider Instructions for Treatment How to Access Health Informa tion Online using Patient Portal and [employer] Indication:BMI 40.0-44.9, adult Start:21-Mar-2022 Instruction Type:Patient Education Patient Instructions Indication:BMI 40.0-44.9, adult Start:15-Mar-2021 Instruction Type:Provider Instructions for Treatment How to Access Health Informa tion Online using Patient Portal and [employer] Indication:BMI 40.0-44.9, adult Start:15-Mar-2021 Instruction Type:Patient Education How to access health [...] disease Start:14-Apr-2012 Instruction Type:Provider Instructions for Treatment [facility]; [facility] Work Phone: Instructions* Name Dates Details Patient Instructions Indication:BMI 40.0-44.9, adult Start:21-Mar-2022 Instruction Type:Provider Instructions for Treatment How to Access Health Informa tion Online using Patient Portal and [employer] Indication:BMI 40.0-44.9, adult Start:21-Mar-2022 Instruction Type:Patient Education Patient Instructions Indication:BMI 40.0-44.9, adult Start:15-Mar-2021 Instruction Type:Provider Instructions for Treatment How to Access Health Informa tion Online using Patient Portal and [employer] Indication:BMI 40.0-44.9, adult Start:15-Mar-2021 Instruction Type:Patient Education How to access health [...] disease Start:14-Apr-2012 Instruction Type:Provider Instructions for Treatment [facility]; [facility] Work Phone: Instructions* Name Dates Details Patient Instructions Indication:BMI 40.0-44.9, adult Start:21-Mar-2022 Instruction Type:Provider Instructions for Treatment How to Access Health Informa tion Online using Patient Portal and [employer] Indication:BMI 40.0-44.9, adult Start:21-Mar-2022 Instruction Type:Patient Education Patient Instructions Indication:BMI 40.0-44.9, adult Start:15-Mar-2021 Instruction Type:Provider Instructions for Treatment How to Access Health Informa tion Online using Patient Portal and [employer]rd [employer] Indication:BMI 40.0-44.9, adult Start:15-Mar-2021 Instruction Type:Patient Education How to access health [...] disease Start:14-Apr-2012 Instruction Type:Provider Instructions for Treatment [facility]; [facility] Work Phone: Instructions* Name Dates Details Patient Instructions Indication:Morbid obesity Start:18-Feb-2023 Instruction Type:Provider Instructions for Treatment How to Access Health Informa tion Online using Patient Portal and [employer]rd [employer] Apps Indication:Morbid obesity Start:18-Feb-2023 Instruction Type:Patient Education Patient Instructions Indication:BMI 40.0-44.9, adult Start:21-Mar-2022 Instruction Type:Provider Instructions for Treatment How to Access Health Informa tion Online using Patient Portal and [employer] Indication:BMI 40.0-44.9, adult Start:21-Mar-2022 Instruction Type:Patient Education Patient Instructions Indication:BMI 40.0-44.9, adult Start:15-Mar-2021 Instruction Type:Provider Instructions for Treatment How to Access Health Informa tion Online using Patient Portal and [employer] Indication:BMI 40.0-44.9, adult Start:15-Mar-2021 Instruction Type:Patient Education How to access health [...] disease Start:14-Apr-2012 Instruction Type:Provider Instructions for Treatment [facility]; [facility] Work Phone: reason for referral (narrative)No reason for referral information availableSt[facility] Work Phone: Family History No Family History Records FoundUnknown Family Member Name Dates Details Father Comments:Dm [...] Comments:HTN, Status:Active Paternal Grandfather Comments:prostate [place] Status:Active Relationship Condition Age at Onset Recorded Date/T renita Not Specified Disorder of thyroid Unknown grandmother Diabetes mellitus Unknown Asthma Unknown grandfather Diabetes mellitus Unknown Cardiac disease Unknown Kidney disorder Unknown father Diabetes mellitus Unknown mother Hypertension Unknown Unknown Family Member Name Dates Details Father [...] Comments:HTN, Status:Active Paternal Grandfather Comments:prostate [place] Status:Active Relationship Condition Age at Onset Recorded Date/T renita Not Specified Disorder of thyroid Unknown grandmother Diabetes mellitus Unknown Asthma Unknown Malignant neoplasm of breast Unknown grandfather Diabetes mellitus Unknown Cardiac disease Unknown Kidney disorder Unknown father Diabetes mellitus Unknown mother Hypertension Unknown Relationship Condition Age at Onset Recorded Date/T renita Not Specified Disorder of thyroid Unknown grandmother Diabetes mellitus Unknown Asthma Unknown grandfather Diabetes mellitus Unknown Cardiac disease Unknown Kidney disorder Unknown father Diabetes mellitus Unknown mother Hypertension Unknown Malignant neoplasm of uterus Unknown Instructions Name Dates Details How to access [...] Name Dates Details How to access health [employer] and [employer] [facility] Indication:Non-smoker Start:21-Oct-2019 Instruction Type:Patient Education How to access health informa tion online - Detail Indication:Non-smoker Start:21-Oct-2019 Instruction Type:Patient Education Patient Instructions Indication:Non-smoker Start:21-Oct-2019 Instruction Type:Provider Instructions for Treatment How to access health informa Blink for iPhone and Androidon online Indication:Vitamin B12 deficiency Start:23-Jul-2019 Instruction Type:Patient Education How to access health informa tion online - Detail Indication:Vitamin B12 deficiency Start:23-Jul-2019 Instruction Type:Patient Education Patient Instructions Indication:Vitamin B12 deficiency Start:23-Jul-2019 Instruction Type:Provider Instructions for Treatment How to access health informa Blink for iPhone and Androidon online Indication:Non-smoker Start:22-Jul-2019 Instruction Type:Patient Education How [...] Instructions for Treatment How to access health [place] Blink for iPhone and Androidon online Indication:Vitamin B12 deficiency Start:23-Jul-2019 Instruction Type:Patient [...] disease Start:14-Apr-2012 Instruction Type:Provider Instructions for Treatment Chief Complaint and Reason for Visit Chief Complaint Consult E ORDERS PLUS PAPER ORDER SCANNED E-ORDER Reason for Visit Chronic diarrhea Crohn's disease Chief Complaint 3 MO FU Reason for Visit Crohn's disease IBS (irritable bowel syndrome) Chief Complaint 3 MO FU 2 WK FU Reason for Visit Crohn's disease IBS (irritable bowel syndrome) Crohn's disease IBS (irritable bowel syndrome) Chief Complaint 2 WK FU Ankle pain LT ACHILLES TENDON STRAIN, LT PTT Reason for Visit Crohn's disease IBS (irritable bowel syndrome) Chief Complaint 2 WK FU Ankle pain LT ACHILLES TENDON STRAIN, LT PTT EMPLOYEE LABS Gastro-esophageal reflux disease without esophagit Reason for Visit Crohn's disease IBS (irritable bowel syndrome) Chief Complaint LT ACHILLES TENDON S TRAIN, LT PTT [employer]OYEE [employer]S Gastro-esophageal reflux disease without esophagit CROHNS DISEASE Chief Complaint Gastro-esophageal re flux disease without esophagit CROHNS DISEASE 6 mo fu Reason for Visit Crohn's disease IBS (irritable bowel syndrome) Chief Complaint Gastro-esophageal re flux disease without esophagit CROHNS DISEASE 6 mo fu Annual (ADVISER SALES) ANNUAL PAP Reason for Visit Crohn's disease IBS (irritable bowel syndrome) ASCUS with positive high risk HPV Dysmenorrhea Menorrhagia with regular cycle Uterine fibroid Encounter for routine gynecological examination Monilial intertrigo Chief Complaint 6 mo fu Annual (ADVISER SALES) ANNUAL PAP Reason for Visit Crohn's disease IBS (irritable bowel syndrome) ASCUS with positive high risk HPV Dysmenorrhea Menorrhagia with regular cycle Uterine fibroid Encounter for routine gynecological examination Monilial intertrigo Chief Complaint Admit Date Crohn's disease of small intestine witho ut complic April 24, 2024 12:47pm 6 M FU June 19, 2024 2 :11pm flu like symptoms June 24, 2024 2 :14pm EMPLOYEE COVID TEST/ [facility] June 24, 2 025 3:11pm Annual (ADVISER SALES) June 29, 2024 2 :06pm 2ND VISIT/COVID POS/DIFF BREATH June 30, 2024 8:21am SOB July 02, 2024 3 :30pm Sleep apnea July 03, 2024 2 :19pm MENORRHAGIA July 06, 2024 2 :09pm DAYTIME HYPERSOMNIA July 10, 2024 7 :58pm CROHN'S DISEASE July 29, 2024 12:02pm 1 M FU July 30, 2024 2:01pm EMB (PER MH- SM OR JV) August 05, 2024 2 :33pm Reason for Visit Admit Date Daytime sleepiness June 19, 2024 2 :11pm Crohn's disease June 19, 2024 2 :11pm IBS (irritable bowel syndrome) June 032024 2:11pm Generalized muscle ache June 19 2:11pm ASCUS with positive high risk HPV Junuar y 2024 2:06pm Dysmenorrhea June 29, 2024 2 :06pm Family history of uterine cancer June 29, 2024 2:06pm Menorrhagia with regular cycle June 042024 2:06pm Uterine fibroid June 29, 2024 2 :06pm Encounter for routine gynecological exam ination June 29, 2024 2:06pm Daytime hypersomnia July 03, 2024 2 :19pm Obesity July 03, 2024 2 :19pm Daytime hypersomnia July 30, 2024 2:01pm Obesity July 30, 2024 2:01pm Dysmenorrhea August 05, 2024 2:33 pm Family history of uterine cancer August 052024 2:33pm Menorrhagia with regular cycle August 2:33pm Uterine fibroid August 05, 2024 2:33 pm Crohn's disease August 05, 2024 2:33 pm Chief Complaint Admit Date DAYTIME HYPERSOMNIA July 10, 2024 7 :58pm CROHN'S DISEASE July 29, 2024 12:02pm 1 M FU July 30, 2024 2:01pm EMB (PER MH- SM OR JV) August 05, 2024 2 :33pm 4 M FU November 04, 2024 2:50p m Reason for Visit Admit Date Daytime hypersomnia July 30, 2024 2:01pm Obesity July 30, 2024 2:01pm Dysmenorrhea August 05, 2024 2:33 pm Family history of uterine cancer August 052024 2:33pm Menorrhagia with regular cycle August 2:33pm Uterine fibroid August 05, 2024 2:33 pm Crohn's disease August 05, 2024 2:33 pm Chief Complaint Admit Date 4 M FU November 04, 2024 2:50p m 2 M FU January 04, 2025 2:4 9pm Reason for Visit Admit Date Daytime sleepiness November 04, 2024 2:50p m Crohn's disease November 04, 2024 2:50p m IBS (irritable bowel syndrome) November 04, 2024 2:50pm Generalized muscle ache November 04, 2024 2 :50pm Advance Directives No Advanced Directives Records Found Advance Directive Response Recorded Date/ Time Living Will No February 22, 2021 11:42pm Power of Skip Hoist Engineer No February 11:42pm Advance Directive Response Recorded Date/ Time Living Will No March 07 2 2:24pm Power of Skip Hoist Engineer No March 07, 2 022 2:24pm Advance Directive Response Recorded Date/ Time Living Will No March 07 2 1:24pm Power of Skip Hoist Engineer No March 07, 2 022 1:24pm Advance Directive Response Recorded Date/ Time Living Will No December 11, 2022 8:42am Power of Skip Hoist Engineer No December 11 3 8:42am Advance Directive Response Recorded Date/ Time Living Will No January 17 3 1:09pm Power of Skip Hoist Engineer No January 17, 2 023 1:09pm Advance Directive Response Recorded Date/ Time Living Will No January 17 3 12:09pm Power of Skip Hoist Engineer No January 17, 2 023 12:09pm Summary Purpose Additional Source Comments Goals (unrecognized section and content) Goals may be documented in a n alternate sectionGoals may be documented in an alternate sectionGoals may be documented in an alternate sectionGoals may be documented in an alternate sectionGoals may be documented in an alternate sectionGoals may be documented in an alternate sectionGoals may be documented in an alternate sectionGoals may be documented in an alternate sectionGoals may be documented in an alternate sectionGoals may be documented in an alternate section Care Teams (unrecognized sec tion and content) Team Status: Active Member Role Status Dates Dr. May Alicia , DO Family Provider Active Dr. May Alicia , DO Primary Care Provider Active Team Status: Inactive Member Role Status Dates Dr. May Alicia , DO Primary Care Provider, Referr ing Provider Active Theresa Hooks FLIGHT ATTENDANT/INFLIGHT SUPERVISOR, FLIGHT ATTENDANT/INFLIGHT SUPERVISOR-C Attending Provider Active Team Status: Active Member Role Status Dates Dr. May Alicia , DO Primary Care Provider, Referr ing Provider Active Dr. Valentin Whitmore , DO Attending Provider, Other Prov ider Active Team Status: Inactive Member Role Status Dates Dr. May Alicia , DO Primary Care Provider, Referr ing Provider Active Sukhwinder Singh PA, PA Attending Provider Active Team Status: Inactive Member Role Status Dates Dr. May Alciia , DO Primary Care Provider, Referr ing Provider Active Ramses Hastings PA, PA Attending Provider Active Team Status: Inactive Member Role Status Dates Dr. May Alicia , DO Primary Care Provider, Referr ing Provider Active Dr. Valentin Whitmore , DO Attending Provider Active Team Status: Active Member Role Status Dates Dr. May Alicia , DO Primary Care Provider Active Health Risk Assessment Attending Provider, Referring P bianca Active Team Status: Inactive Member Role Status Dates Dr. May Alicia , DO Primary Care Provider, Attend ing Provider Active Team Status: Inactive Member Role Status Dates Dr. May Alicia , DO Primary Care Provider Active Theresa Hooks FLIGHT ATTENDANT/INFLIGHT SUPERVISOR, FLIGHT ATTENDANT/INFLIGHT SUPERVISOR-C Attending Provider, Referrin g Provider Active Team Status: Inactive Member Role Status Dates Dr. May Alicia , DO Primary Care Provider Active Ramses Hastings PA, PA Attending Provider, Referring Pr ovider Active Team Status: Inactive Member Role Status Dates Dr. May Alicia , DO Primary Care Provider Active Dr. Olu Briones MD Attending Provider Active Team Status: Inactive Member Role Status Dates Dr. May Alicia DO Primary Care Provider Active Theresa Hooks FLIGHT ATTENDANT/INFLIGHT SUPERVISOR, FLIGHT ATTENDANT/INFLIGHT SUPERVISOR-C Attending Provider Active Team Status: Inactive Member Role Status Dates Dr. May Alicia DO Primary Care Provider Active Dr. Valentin Whitmore , DO Attending Provider, Referring Provider Active Team Status: Inactive Member Role Status Dates Dr. May Alicia DO Primary Care Provider Active Dr. Dwight Vasquez MD Attending Provider, Emergency Provider Active Team Status: Inactive Member Role Status Dates Dr. May Alicia DO Primary Care Provider Active Dr. Azeem Julien , ELVISM Attending Provider, Referri ng Provider Active Team Status: Inactive Member Role Status Dates Dr. May Alicia DO Primary Care Provider Active Dr. Valentin Whitmore , DO Attending Provider Active Team Status: Inactive Member Role Status Dates Dr. May Alicia DO Primary Care Provider, Referr ing Provider Active Jennifer Mcdaniel FLIGHT ATTENDANT/INFLIGHT SUPERVISOR, FLIGHT ATTENDANT/INFLIGHT SUPERVISOR-C Attending Provider Active Team Status: Inactive Member Role Status Dates Dr. May Alicia DO Primary Care Provider Active Jennifer Mcdaniel FLIGHT ATTENDANT/INFLIGHT SUPERVISOR, FLIGHT ATTENDANT/INFLIGHT SUPERVISOR-C Attending Provider, Referring Provider Active Team Status: Active Member Role Status Dates Dr. May Alicia DO Primary Care Provider Active Team Status: Inactive Member Role Status Dates Dr. May Alicia DO Primary Care Provider Active Start: April 20, 2024 End: April 20, 2024 Dr. Valentin Whitmore , DO Attending Provider Active Start: April 20, 2024 End: April 20, 2024 Dr. Cecilia Raymond MD Referring Provider Active Start: April 20, 2024 End: April 20, 2024 Team Status: Inactive Member Role Status Dates Dr. May Alicia DO Primary Care Provider Active Start: April 24, 2024 End: April 24, 2024 Dr. Valentin Whitmore DO Attending Provider Active Start: April 24, 2024 End: April 24, 2024 Dr. Valentin Whitmore DO Referring Provider Active Start: April 24, 2024 End: April 24, 2024 Team Status: Inactive Member Role Status Dates Dr. May Alicia DO Primary Care Provider Active Start: May 20, 2024 End: May 20, 2024 Dr. Valentin Whitmore DO Attending Provider Active Start: May 20, 2024 End: May 20, 2024 Team Status: Inactive Member Role Status Dates Dr. Valentin Whitmore DO Attending Provider Active Start: June 19, 2024 End: June 19, 2024 Team Status: Inactive Member Role Status Dates CHINTAN Muñoz Attending Provider Active Start: June 24, 2024 End: June 24, 2024 Team Status: Inactive Member Role Status Dates Dr. May Alicia DO Referring Provider Active Start: June 29, 2024 End: June 29, 2024 Jennifer Mcdaniel NP, FLIGHT ATTENDANT/INFLIGHT SUPERVISOR-C Attending Provider Active Start: June 29, 2024 End: June 29, 2024 Team Status: Inactive Member Role Status Dates CHINTAN Muñoz Attending Provider Active Start: June 30, 2024 End: June 30, 2024 Team Status: Inactive Member Role Status Dates Dr. May Alicia DO Primary Care Provider Active Start: July 02, 2024 End: July 02, 2024 Dr. May Alicia DO Attending Provider Active Start: July 02, 2024 End: July 02, 2024 Dr. May Alicia DO Referring Provider Active Start: July 02, 2024 End: July 02, 2024 Team Status: Inactive Member Role Status Dates Sana Hartmann FLIGHT ATTENDANT/INFLIGHT SUPERVISOR, FLIGHT ATTENDANT/INFLIGHT SUPERVISOR-C Attending Provider Active Start: July 03, 2024 End: July 03, 2024 Dr. May Alicia DO Primary Care Provider Active Start: July 03, 2024 End: July 03, 2024 Dr. May Alicia DO Referring Provider Active Start: July 03, 2024 End: July 03, 2024 Team Status: Inactive Member Role Status Dates Jennifer Mcdaniel FLIGHT ATTENDANT/INFLIGHT SUPERVISOR, FLIGHT ATTENDANT/INFLIGHT SUPERVISOR-C Attending Provider Active Start: July 06, 2024 End: July 06, 2024 Jennifer Mcdaniel FLIGHT ATTENDANT/INFLIGHT SUPERVISOR, FLIGHT ATTENDANT/INFLIGHT SUPERVISOR-C Referring Provider Active Start: July 06, 2024 End: July 06, 2024 Dr. May Alicia DO Primary Care Provider Active Start: July 06, 2024 End: July 06, 2024 Team Status: Inactive Member Role Status Dates Dr. May Alicia DO Primary Care Provider Active Start: July 10, 2024 End: July 10, 2024 Sana Hartmann FLIGHT ATTENDANT/INFLIGHT SUPERVISOR, FLIGHT ATTENDANT/INFLIGHT SUPERVISOR-C Attending Provider Active Start: July 10, 2024 End: July 10, 2024 Sana Hartmann FLIGHT ATTENDANT/INFLIGHT SUPERVISOR, FLIGHT ATTENDANT/INFLIGHT SUPERVISOR-C Referring Provider Active Start: July 10, 2024 End: July 10, 2024 Team Status: Inactive Member Role Status Dates Dr. Valentin Whitmore DO Attending Provider Active Start: July 29, 2024 End: July 29, 2024 Dr. Valentin Whitmore DO Referring Provider Active Start: July 29, 2024 End: July 29, 2024 Dr. May Alicia DO Primary Care Provider Active Start: July 29, 2024 End: July 29, 2024 Team Status: Inactive Member Role Status Dates Dr. May Alicia DO Primary Care Provider Active Start: July 30, 2024 End: July 30, 2024 Dr. May Alicia DO Referring Provider Active Start: July 30, 2024 End: July 30, 2024 Sana Hartmann NP, FLIGHT ATTENDANT/INFLIGHT SUPERVISOR-C Attending Provider Active Start: July 30, 2024 End: July 30, 2024 Team Status: Inactive Member Role Status Dates Dr. Greta Morse DO Attending Provider Activ e Start: August 05, 2024 End: August 05, 2024 Dr. May Alicia DO Primary Care Provider Active Start: August 05, 2024 End: August 05, 2024 Dr. May Alicia DO Referring Provider Active Start: August 05, 2024 End: August 05, 2024 Team Status: Active Member Role Status Dates Dr. May Alicia DO Primary Care Provider Active Start: August 05, 2024 Dr. Greta Morse DO Attending Provider Activ e Start: August 05, 2024 Dr. Greta Morse DO Referring Provider Activ e Start: August 05, 2024 Team Status: Inactive Member Role Status Dates Dr. May Alicia DO Primary Care Provider Active Start: August 05, 2024 End: August 05, 2024 Dr. Greta Morse DO Attending Provider Activ e Start: August 05, 2024 End: August 05, 2024 Dr. Greta Morse DO Referring Provider Activ e Start: August 05, 2024 End: August 05, 2024 Team Status: Inactive Member Role Status Dates Dr. Valentin Whitmore DO Attending Provider Active Start: November 04, 2024 End: November 04, 2024 Dr. May Alicia DO Primary Care Provider Active Start: November 04, 2024 End: November 04, 2024 Dr. May Alicia DO Referring Provider Active Start: November 04, 2024 End: November 04, 2024 Team Status: Active Member Role/Relationship Status Dates Dr. May Alicia DO Primary Care Provider Active Team Status: Inactive Member Role/Relationship Status Dates Dr. Valentin Whitmore DO Attending Provider Active Start: November 04, 2024 End: November 04, 2024 Dr. May Alicia DO Primary Care Provider Active Start: November 04, 2024 End: November 04, 2024 Dr. May Alicia DO Referring Provider Active Start: November 04, 2024 End: November 04, 2024 Team Status: Inactive Member Role/Relationship Status Dates Dr. May Alicia DO Primary Care Provider Active Start: January 04, 2025 End: January 04, 2025 Dr. May Alicia DO Referring Provider Active Start: January 04, 2025 End: January 04, 2025 Dr. Valentin Whitmore DO Attending Provider Active Start: January 04, 2025 End: January 04, 2025 INFORMATION SOURCE (unrecogn ized section and content) DATE CREATED AUTHOR 01/29/2025 [facility] FOR RECORDS PERTAINING TO PATIENTS WHO ARE [...] BE BASED ON THE PRIMARY CLINICAL RECORDS. [facility] provides no warranty or guarantee of the accuracy or completeness of information in this document.
[2025-02-06 11:49] LABS: Hematocrit 39.4 % (37-47); Hemoglobin 13.3 g/dL (12.0-15.0); Immature Granulocytes Count 0.070 X10^3/uL (0.0-0.0); Mean Corp Hgb Conc 33.8 g/dL (32-36); Mean Corpuscular Volume 92.1 fL (81-99); Mean Platelet Vol. 10.1 fl (6.2-12.0); NRBC Flagged by Analyzer 0 % (0-5); Platelet Count 342 K/mm3 (150-450); RBC Distribution Width CV 13.0 % (11.6-14.6); RBC Distribution Width SD 43.0 fl (35.1-43.9); Red Blood Count 4.28 M/mm3 (4.2-5.4); White Blood Count 8.6 K/mm3 (4.4-11.0)
[2025-02-06 12:27] LABS: AST(SGOT) 23 U/L (<=31); Alanine Aminotransfer ALT/SGPT 21 U/L (<=34); Albumin, Serum 4.2 g/dL (3.5-5.0); Alkaline Phosphatase 59 U/L (35-104); Anion Gap 10 (5-15); BUN 8 mg/dL (4-19); BUN/Creat Ratio 14.8 RATIO (10-20); CRP 8.78 mg/L (0.0-3.0); Calcium,Total 9.9 mg/dL (7.6-11.0); Carbon Dioxide 25.1 mmol/L (21.0-32.0); Chloride 100 mmol/L (98-108); Globulin 3.4 g/dL (2.2-4.2); Glucose 87 mg/dL (70-99); Potassium 4.8 mmol/L (3.3-5.1)
== END | disposition home or self-care (01) ==
LOC: LAB 10:56
PROVIDERS: PCP Internal Medicine; Referring Provider Internal Medicine Gastroenterology; Visit Provider Internal Medicine Gastroenterology
DX: K50.00 Crohn's disease of small intestine without complications (principal)
CPT/HCPCS: 36415; 80053; 85025; 85652; 86140

== ENCOUNTER 2025-02-23 05:14 | Day surgery (SDC) | payer OTHER, SELFPAY ==
[2025-02-10 14:04] LABS: AST(SGOT) 17 U/L (<=31); Alanine Aminotransfer ALT/SGPT 12 U/L (<=34); Albumin, Serum 4.1 g/dL (3.5-5.0); Alkaline Phosphatase 55 U/L (35-104); Anion Gap 12 (5-15); BUN 11 mg/dL (4-19); BUN/Creat Ratio 16.9 RATIO (10-20); Calcium,Total 9.5 mg/dL (7.6-11.0); Carbon Dioxide 23.3 mmol/L (21.0-32.0); Chloride 102 mmol/L (98-108); Globulin 3.1 g/dL (2.2-4.2); Glucose 90 mg/dL (70-99); Potassium 4.0 mmol/L (3.3-5.1)
[2025-02-10 20:11] LABS: Magnesium 1.9 mg/dL (1.5-2.2)
[2025-02-23] VITALS (12 sets, daily range): BP systolic 122–141; BP diastolic 69–93; PULSE 59–84; RESP 16–18; TEMP 36–36.6; O2SAT 99–100; BMI 47.7
--- OUTSIDE RECORDS SUMMARY | 2025-02-23 05:19 | XMS RPT_ITS | CCD ---
Author Organization [facility] Care Team Providers Care Larriman Helper Name Role Phone Maria Elena Aliciahleen Unavailable Ravi Larios Unavailable [phone] Uri Escamilla Unavailable Alli Verma Unavailable Unavailab Eusebio Ayers Unavailable Kofi Terry Unavailable [facility] Unavailable Olu De Guzman Unavailable Cary Heaton Unavailable Unavailable Miriamesa, Rebeka Unavailable Amber Astorga Unavailable Unavailable Unavailable Unavailable Cary Heaton Unavailable Unavailable Vinnie Layne Unavailable Unavailable Unavailable Unavailable Destiny Carrillo Unavailable Unavailable Vinnie Lentz Unavailable Unavailable May Alicia DO Unavailable Ravi Larios MD Unavailable Uri Escamilla MD Unavailable [phone] Alli Verma Unavailable Unavailab Eusebio Ayers MD Unavailable Dr. Kofi Terry Unavailable [facility] Unavailable Olu De Guzman MD Unavailable Destiny Carrillo LPN Unavailable Unavailable Cijonh MENDOZA, Rebeka Unavailable Amber Astorga LPN Unavailable Unavailable Cary Heaton RN Unavailable Unavailable Vinnie Lentz LPN Unavailable Unavailable Unavailable Unavailable Bart ELY, Dorothy Unavailable Unavailable May Alicia DO Unavailable Friend, Dr. Hanson Unavailable [phone] Madeleine Arreola Unavailable Win CRTTS, Ruth Unavailable Unavailable Madeleine Arreola Unavailable Dr. May Alicia Primary Care Provider [phone] Dr. May Alicia Referring Provider Jessee LUGGAGE ATTENDANT, LUGGAGE ATTENDANT-C Theresa Joseph Attending Provider 1( [phone] Gravcharline CRTTS, Sindhu Unavailable Unavailable Friend, Dr. Hanson Attending Provider [phone] Friend, Dr. Hanson Other Provider [phone] CHINTAN Allen Attending Provider CHINTAN Sage Attending Provider Dr. May Alicia Primary Care Provider [phone] Dr. May Alicia Referring Provider Jessee LUGGAGE ATTENDANT, LUGGAGE ATTENDANT-C Theresa Joseph Attending Provider 1( [phone]) FriendDr. Hanson Attending Provider [phone] FriendDr. Hanson Other Provider [phone] CHINTAN Allen Attending Provider CHINTAN Sage Attending Provider Dr. May Alicia Primary Care Provider [phone] Dr. May Alicia Referring Provider Jessee LUGGAGE ATTENDANT, LUGGAGE ATTENDANT-C Theresa Joseph Attending Provider [phone] Dr. May Alicia Primary Care Provider [phone] Dr. May Alicia Referring Provider Jessee LUGGAGE ATTENDANT, LUGGAGE ATTENDANT-C Theresa Joseph Attending Provider [phone] FriendDr. Hanson Attending Provider Friend, Dr. Hanson Other Provider 1([facility])-[phone] May Alicia Primary Care Provider 1([facility] )343 Dr. May Alicia Referring Provider 1([facility])[phone] LIBORIO Torrez LPN, Dr. Olvera Primary Care Provider 1([facility] )-[phone] Dr. May Alicia Referring Provider 1([facility])[phone] Friend, Dr. Hanson Attending Provider 1([facility])[phone] Friend, Dr. Hanson Other Provider 1([facility])- [phone] Ravin, Dr. Olvera Primary Care Provider 1([facility] )343 Ravin, Dr. Olvera Referring Provider 1([facility])[phone] Myranda, Dr. Hanson Attending Provider 1([facility]) Violeta LUGGAGE ATTENDANT, LUGGAGE ATTENDANT-C Jennifer Attending Provider 1([facility] ) Dr. May Alicia Primary Care Provider 1([facility] ) Dr. May Alicia Referring Provider 1([facility])[phone] Dr. Valentin Whitmore Attending Provider 1([facility])[phone] Violeta LUGGAGE ATTENDANT, LUGGAGE ATTENDANT-C Jennifer Attending Provider 1([facility] ) Dr. May Alicia DO Primary Care Provider Friend Dr. Valentin RICH Attending Provider Dr. Cecilia Raymond MD Referring Provider Dr. Valentin Whitmore DO Referring Provider Ramses Sage Attending Provider 1([facility])[phone] Dr. May Alicia DO Referring Provider 1([facility] )-343 Violeta LUGGAGE ATTENDANT-CJennifer Attending Provider 1([facility])[phone] Dr. May Alicia DO Attending Provider 1([facility] )-343 Shahbaz ALLEN-CSana Attending Provider Violeta LUGGAGE ATTENDANT-CJennifer Referring Provider 1([facility])[phone] Shahbaz ALLEN-CSana Referring Provider Beverly Shirley DO, Dr. Hernandes Attending Provider Beverly Shirley DO, Dr. Hernandes Referring Provider Ravin DO, Dr. Olvera Primary Care Provider Sana Reyes Attending Provider Friend DO, Dr. Hanson Attending Provider Friend DO, Dr. Hanson Referring Provider Ravin DO, Dr. Olvera Referring Provider [phone] Friend DO, Dr. Hanson Attending Provider Ravin DO, Dr. Olvera Primary Care Provider [phone] Ravin DO, Dr. Olvera Referring Provider [phone] Friend DO, Dr. Hanson Referring Provider Assessment, Health Risk Attending Provider Unava ilable Assessment, Health Risk Referring Provider Unava ilable Ramses Sage Attending Unavailable Ravin, May Primary Care Unavailable Sana Hartmann NP Attending Unavailable Ravin, May Referring Unavailable Ravin, May Referring Unavailable Friend, Valentin Attending Unavailable Ravin, May Primary Care Unavailable Cecilia Raymond Referring Unavailable Friend, Valentin Attending Unavailable Ravin, May Primary Care Unavailable Ravin, May Primary Care Unavailable [place] LUGGAGE ATTENDANTJennifer Referring Unavailable Violeta LUGGAGE ATTENDANTJennifer Attending Unavailable Friend, Valentin Attending Unavailable Friend, Valentin Referring Unavailable Ravin, May Primary Care Unavailable Ravin, May Primary Care Unavailable Assessment, Health Risk Attending Unavaila ble Ravin, May Primary Care Unavailable Assessment, Health Risk Referring Unavaila ble Assessment, Health Risk Attending Unavaila ble Ravin, May Referring Unavailable Ravin, May Primary Care Unavailable Greta Morse Attending Unavailabl e Friend, Valentin Attending Unavailable Friend, Valentin Referring Unavailable Ravin, May Primary Care Unavailable Ravin, May Referring Unavailable Friend, Valentin Attending Unavailable Ravin, May Primary Care Unavailable Ravin, May Referring Unavailable Ravin, May Primary Care Unavailable Shahbaz ALLEN, Sana Attending Unavailable Ravin, May Referring Unavailable Ravin, May Primary Care Unavailable Vande Matthieude, Greta Attending Unavailabl e Friend, Valentin Attending Unavailable Ravin, May Primary Care Unavailable Ramses Sage Attending Unavailable Jennifer Mcdaniel NP Attending Unavailable Ravin, May Referring Unavailable Ramses Sage Attending Unavailable Friend, Valentin Attending Unavailable Ravin, May Primary Care Unavailable Friend, Valentin Referring Unavailable Friend, Valentin Attending Unavailable Ravin, May Primary Care Unavailable Ravin, May Primary Care Unavailable Vande Velde, Greta Referring Unavailabl e Vande Velde, Greta Attending Unavailabl e Ravin, May Primary Care Unavailable Vande Velde, Greta Referring Unavailabl e Vande Velde, Greta Attending Unavailabl e Ravin, May Referring Unavailable Ravin, May Attending Unavailable Ravin, May Primary Care Unavailable Ravin, May Primary Care Unavailable Shahbaz LUGGAGE ATTENDANT, Sana Attending Unavailable Shahbaz LUGGAGE ATTENDANT, Sana Referring Unavailable Allergies Allergy Classification Reported Allergen(s) Allergy Type Date of Onset Reaction(s) Facility Azole Antifungals (1 source) Clotrimazole; Translations: [Clotrimazole *MOUTH/THROAT/D ENTAL AGENTS*] Drug Allergy [facility] Work Phone: Comment on above: Blurred vision (20 sources) Clotrimazole; Translations: [Clotrimazole *MOUTH/THROAT/D ENTAL AGENTS*] Drug Allergy 2 Blurred Vision [facility] Work Phone: Comment on above: Blurred vision (1 source) shrimp allergenic extract Drug Allergy 5 [facility] Patient Instructions Indication:Non-smoker Start:04-Mar-2017 Instruction Type:Provider Instructions [...] Treatment How to access health informa tion [employer]apps Indication:Orthostatic hypotension Start:19-Feb-2014 Instruction Type:Patient Education How to access health informa [employer] online - Detail Indication:Orthostatic hypotension Start:19-Feb-2014 Instruction Type:Patient Education Patient Instructions Indication:Orthostatic hypotension Start:19-Feb-2014 Instruction Type:Provider Instructions for Treatment How to access health informa [employer] online Indication:Orthostatic hypotension Start:05-Feb-2014 Instruction Type:Patient Education [...] Details How to access health informa tion [employer]apps Indication:Non-smoker Start:21-Oct-2019 Instruction Type:Patient Education How to access health informa [employer] online - Detail Indication:Non-smoker Start:21-Oct-2019 Instruction Type:Patient [...] Type:Patient Education How to access health informa [employer] online - Detail Indication:Encounter for well adult [...] Type:Provider Instructions for Treatment How to access [employer] Indication:Orthostatic hypotension Start:19-Feb-2014 Instruction Type:Patient Education How to access health informa [employer] online - Detail Indication:Orthostatic hypotension Start:19-Feb-2014 Instruction Type:Patient Education Patient Instructions Indication:Orthostatic hypotension Start:19-Feb-2014 Instruction Type:Provider Instructions for Treatment How to access [employer] Indication:Orthostatic hypotension Start:05-Feb-2014 Instruction Type:Patient Education How to access health informa [employer] online - Detail Indication:Orthostatic hypotension Start:05-Feb-2014 Instruction [...] Treatment Name Dates Details How to access [employer] tion online Indication:BMI 40.0-44.9, adult Start:24-Feb-2020 Instruction [...] Type:Provider Instructions for Treatment How to access [employer] Indication:Orthostatic hypotension Start:19-Feb-2014 Instruction Type:Patient Education How to access health informa tion online - Detail Indication:Orthostatic hypotension Start:19-Feb-2014 Instruction Type:Patient Education Patient Instructions Indication:Orthostatic hypotension Start:19-Feb-2014 Instruction Type:Provider Instructions for Treatment How to access [email or web address] online Indication:Orthostatic hypotension Start:05-Feb-2014 Instruction Type:Patient Education [...] esophagit CROHNS DISEASE 6 mo fu 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 Reason for Visit Crohn's disease IBS (irritable bowel syndrome) ASCUS with positive high risk HPV Dysmenorrhea Menorrhagia with regular cycle Uterine fibroid Encounter for routine gynecological examination Monilial intertrigo Chief Complaint 6 mo fu 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 Reason for Visit Crohn's disease [...] [facility] June 24, 2 025 3:11pm Annual (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 ADJUSTER) June 29, 2024 2 :06pm 2ND VISIT/COVID [...] 2:11pm ASCUS with positive high risk HPV Rebeccar y 2024 2:06pm Dysmenorrhea June 29, 2024 [...] 2024 2:50p m IBS (irritable bowel syndrome) Shelbi 4th, 2025 2:50pm Generalized muscle ache November 04, 2024 2 :50pm Chief Complaint Admit Date 4 M FU November 04, 2024 2:50p m 2 M FU January 04, 2025 2:4 9pm employee 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 February 06, 2025 10:58am Reason for Visit Admit Date Daytime sleepiness November 04, 2024 2:50p m Crohn's disease November 04, 2024 2:50p m IBS (irritable bowel syndrome) November 04, 2024 2:50pm Generalized muscle ache November 04, 2024 2 :50pm Daytime sleepiness January 04, 2025 2:4 9pm Chronic diarrhea January 04, 2025 2:4 9pm Crohn's disease January 04, 2025 2:4 9pm IBS (irritable bowel syndrome) January 2:49pm Generalized muscle ache January 04, 2025 2:49pm Advance Directives No Advanced Directives Records Found Advance Directive Response Recorded Date/ Time Living Will No February 22, 2021 11:42pm Power of Flight Attendant/Inflight Supervisor No February 11:42pm Advance Directive Response Recorded Date/ Time Living Will No March 07 2 2:24pm Power of Flight Attendant/Inflight Supervisor No March 07, 2 022 2:24pm Advance Directive Response Recorded Date/ Time Living Will No March 07 2 1:24pm Power of Flight Attendant/Inflight Supervisor No March 07, 2 022 1:24pm Advance Directive Response Recorded Date/ Time Living Will No December 11, 2022 8:42am Power of Flight Attendant/Inflight Supervisor No December 11 3 8:42am Advance Directive Response Recorded Date/ Time Living Will No January 17 3 1:09pm Power of Flight Attendant/Inflight Supervisor No January 17, 2 023 1:09pm Advance Directive Response Recorded Date/ Time Living Will No January 17 3 12:09pm Power of Flight Attendant/Inflight Supervisor No January 17, 2 023 12:09pm Summary [...] Role Status Dates Dr. May Alicia DO Family Provider Active Dr. May Alicia DO Primary Care Provider Active Team Status: Inactive Member Role Status Dates Dr. May Alicia DO Primary Care Provider, Referr ing Provider Active Theresa Hooks LUGGAGE ATTENDANT, LUGGAGE ATTENDANT-C Attending Provider Active Team Status: Active Member [...] May Alicia DO Primary Care Provider Active Health Risk Assessment Attending Provider, Referring P rovider Active Team Status: Inactive Member Role Status Dates Dr. May Alicia DO Primary Care Provider, Attend ing Provider Active Team Status: Inactive Member Role Status Dates Dr. May Alicia DO Primary Care Provider Active Theresa Hooks LUGGAGE ATTENDANT, LUGGAGE ATTENDANT-C Attending Provider, Referrin g Provider Active Team Status: Inactive Member Role Status Dates Dr. May Alicia DO Primary Care Provider Active Ramses Hastings PA, PA Attending Provider, Referring Pr ovider Active Team Status: Inactive Member Role Status Dates Dr. May Alicia DO Primary Care Provider Active Dr. Olu Reyna MD Attending Provider Active Team Status: Inactive Member Role Status Dates Dr. May Alicia DO Primary Care Provider Active Theresa Hooks LUGGAGE ATTENDANT, LUGGAGE ATTENDANT-C Attending Provider Active Team Status: Inactive Member Role Status Dates Dr. May Alicia DO Primary Care Provider Active Dr. Valentin Whitmore , DO Attending Provider, Referring Provider Active Team Status: Inactive Member Role Status Dates DrOzzie Alicia DO Primary Care Provider Active Dr. Dwight Vasquez MD Attending Provider, Emergency Provider Active Team Status: Inactive Member Role Status Dates Dr. May Alicia , DO Primary Care Provider Active Dr. Azeem Julien DPM Attending Provider, Referri ng Provider Active Team Status: Inactive Member Role Status Dates Dr. May Alicia DO Primary Care Provider Active Dr. Valentin Whitmore DO Attending Provider Active Team Status: Inactive Member Role Status Dates Dr. May Alicia DO Primary Care Provider, Referr ing Provider Active Jennifer Mcdaniel LUGGAGE ATTENDANT, LUGGAGE ATTENDANT-C Attending Provider Active Team Status: Inactive Member Role Status Dates Dr. May Alicia DO Primary Care Provider Active Jennifer Mcdaniel LUGGAGE ATTENDANT, LUGGAGE ATTENDANT-C Attending Provider, Referring Provider Active Team Status: Active Member Role Status Dates Dr. May Alicia DO Primary Care Provider Active Team Status: Inactive Member Role Status Dates Dr. May Alicia DO Primary Care Provider Active Start: April 20, 2024 End: April 20, 2024 Dr. Valentin Whitmore DO Attending Provider Active Start: April 20, [...] Team Status: Inactive Member Role Status Dates Ramses Hastings PA, PA Attending Provider Active Start: June 24, 2024 End: June 24, 2024 Team Status: Inactive Member Role Status Dates Dr. May Alicia DO Referring Provider Active Start: June 29, 2024 End: June 29, 2024 Jennifer Mcdaniel LUGGAGE ATTENDANT, LUGGAGE ATTENDANT-C Attending Provider Active Start: June 29, 2024 End: June 29, 2024 Team Status: Inactive Member Role Status Dates Ramses Hastings PA, PA Attending Provider Active Start: June 30, 2024 [...] Inactive Member Role Status Dates Sana Hartmann NP, LUGGAGE ATTENDANT-C Attending Provider Active Start: July 03, 2024 End: July 03, 2024 Dr. May Alicia DO Primary Care Provider Active Start: July 03, 2024 End: July 03, 2024 Dr. May Alicia DO Referring Provider Active Start: July 03, 2024 End: July 03, 2024 Team Status: Inactive Member Role Status Dates Jennifer Mcdaniel LUGGAGE ATTENDANT, LUGGAGE ATTENDANT-C Attending Provider Active Start: July 06, 2024 End: July 06, 2024 Jennifer Mcdaniel LUGGAGE ATTENDANT, LUGGAGE ATTENDANT-C Referring Provider Active Start: July 06, 2024 End: July 06, 2024 Dr. May Alicia DO Primary Care Provider Active Start: July 06, 2024 End: July 06, 2024 Team Status: Inactive Member Role Status Dates Dr. May Alicia DO Primary Care Provider Active Start: July 10, 2024 End: July 10, 2024 Sana Hartmann LUGGAGE ATTENDANT, LUGGAGE ATTENDANT-C Attending Provider Active Start: July 10, 2024 End: July 10, 2024 Sana Hartmann LUGGAGE ATTENDANT, LUGGAGE ATTENDANT-C Referring Provider Active Start: July 10, 2024 [...] 2024 End: July 30, 2024 Sana Hartmann LUGGAGE ATTENDANT, LUGGAGE ATTENDANT-C Attending Provider Active Start: July 30, 2024 [...] January 04, 2025 End: January 04, 2025 Team Status: Inactive Member Role/Relationship Status Dates Dr. May Alicia DO Primary Care Provider Active Start: February 06, 2025 End: February 06, 2025 Dr. Valentin Whitmore DO Attending Provider Active Start: February 06, 2025 End: February 06, 2025 Dr. Valentin Whitmore DO Referring Provider Active Start: February 06, 2025 End: February 06, 2025 Team Status: Active Member Role/Relationship Status Dates Dr. May Alicia DO Primary Care Provider Active Start: February 06, 2025 Health Risk Assessment Attending Provider Active Start: February 06, 2025 Health Risk Assessment Referring Provider Active Start: February 06, 2025 INFORMATION SOURCE (unrecogn ized section and content) DATE CREATED AUTHOR 02/23/[address] [facility] FOR RECORDS PERTAINING TO PATIENTS WHO [...] BE BASED ON THE PRIMARY CLINICAL RECORDS. [employer] [facility]. provides no warranty or guarantee of the accuracy or completeness of information in this document.
[2025-02-23 05:42] LABS: Internal QC Validated? YES +Cl - CLEAR BKGD; Pregnancy, Urine Negative Negative; Record Kit Lot#,Urine Preg 0000964736
[2025-02-23] MEDS: Scopolamine 1mg/72hr Patch 1 PATCH TD (06:04)
[2025-02-23] MEDS: Lactated Ringers 1,000 ML 40 ML IV (06:14)
[2025-02-23] MEDS: Magnesium 2 GM for ERAS IV (06:16)
--- NOTE | 2025-02-23 06:32 | PCM.PRE.AN2 ---
ASA Classification* ASA Classification ASA Classification: 3 Assessment & Plan Anesthesia* Anesthesia Assessment Anesthesia Assessment: Discussed sedation and/or anesthesia options, risks, benefits, and alternatives with patient/parents/legal guardian/POA. Questions invited. The patient/parents/legal guardian/POA seems to understand and agrees to proceed with anesthesia plan. Reviewed the physical assessment, medical history, allergy history and patient home medications list prior to surgery/procedure/anesthetic and documented any changes. Performed airway and anesthesia risk assessments. Anesthesia Type Anesthesia Type: General History Source History Obtained from:: Patient and Chart Anesthesia Focused Assessment* Temperature: 97.6 F Pulse Rate: 84 Blood Pressure: 128/69 Respiratory Rate: 16 Pulse Ox: 100 Oxygen Delivery Method: Room Air Airway Assessment Mouth opens: >3 cm Mallampati Score: II Teeth Condition: Intact Neck Range of motion (ROM): Full ROM Labs Anesthesia Preop lab: CBC WBC, (4.4-11.0) 8.3 K/mm3 02/06/25, 11:13 RBC, (4.2-5.4) 4.27 M/mm3 02/06/25, 11:13 Hgb, (12.0-15.0) 13.4 g/dL 02/06/25, 11:13 Hct, (37-47) 39.4 % 02/06/25, 11:13 Plt Count, (150-450) 335 K/mm3 02/06/25, 11:13 CHEMISTRY Potassium, (3.3-5.1) 4.0 mmol/L 02/10/25, 12:10 Sodium, (133-145) 138 mmol/L 02/10/25, 12:10 Magnesium, (1.5-2.2) 1.9 mg/dL 02/10/25, 12:10 Phosphorus, (2.7-4.5) 2.9 mg/dL 02/06/25, 11:13 BUN, (4-19) 11 mg/dL 02/10/25, 12:10 Creatinine, (0.70-1.20) 0.67 mg/dL L 02/10/25, 12:10 Glucose, (70-99) 90 mg/dL 02/10/25, 12:10 TSH, (0.358-3.74) 3.02 uIU/mL 12/17/23, 05:18 COAG HCG, Quant, (<9 non-preg) < 1 mIU/mL 04/03/18, 13:11 Urine Test Negative Negative Today, 05:30 Pre-Assessment Diagnosis/Proposed Procedure Planned Operative Procedure(s): ROBOTIC LAPAROSCPOIC HYSTERECTOMY LEVAR SALPINGECTOMY, CYSTOSCOPY Anesthesia History 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 When Was Last Pacemaker Check QUESTION #4 FULL TEXT: You/Your Family Experience fever (hyperthermia) with Anesthesia Last Oral Intake Last Oral intake: Last Oral Intake NPO since 03:10 02/23/25 05:58 Meds taken in AM with sips of Yes 02/23/25 05:58 water? Meds patient instructed to take am of surgery Any additional information?: Yes NPO since: 03:10 (Patient had her preop Ensure and water at 3:10 AM.) Meds taken in AM with sips of water?: Yes Meds patient instructed to take am of surgery: Buspirone PONV PONV - corporate compliance director: PONV - corporate compliance director Female Yes 02/09/25 09:02 HX of Motion Sickness No 02/09/25 09:02 HX of N/V After Surgery Yes 02/09/25 09:02 Non-Smoker Yes 02/09/25 09:02 Duration of Surgery greater Yes 02/09/25 09:02 than 60 minutes Number of Risk Factors 4 02/09/25 09:02 PONV Score Severe Risk 02/09/25 09:02 Height & Weight Height & Weight: Anesthesia: Height & Weight Height 5 ft 7 in 02/23/25 05:58 Weight: 138.346 kg 02/23/25 05:58 Body Mass Index (BMI) 47.7 02/23/25 05:58 Respiratory Assessment Respiratory Assessment - corporate compliance director: Respiratory Tract Infection Hx - corporate compliance director Hx Respiratory Tract Infection No 02/09/25 09:02 STOP Sleep Apnea STOP Sleep Apnea - corporate compliance director: STOP Sleep Apnea - corporate compliance director Hx Hypertension No 02/09/25 09:02 Hx Sleep Apnea No 02/09/25 09:02 CPAP BIPAP Do you snore loudly (louder Yes 02/09/25 09:02 than talking or can be heard Do you often feel tired/ No 02/09/25 09:02 fatigued/ sleepy during daytime? Has anyone observed you stop No 02/09/25 09:02 breathing during sleep? STOP Results Negative 02/09/25 09:02 QUESTION #5 FULL TEXT : Do you snore loudly (louder than talking or can be heard through closed doors)? 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 Specify any problems Hx of Preganancy in last 3 No 02/09/25 09:02 Months Nurse Filling Out Transfusion [id number] 02/09/25 09:02 & Questions: Date: 02/09/25 02/09/25 09:02 Time: 09:04 02/09/25 09:02 Patient unable to answer at this time (ie. confused, unrespo /Reproduction History /Reproductive History - corporate compliance director: /Reproductive Hx- corporate compliance director Hx Now Gestational Age (in weeks): EDC: Hx Hx Para Hx Section SAB No 02/19/25 14:42 Active Medications Active Medications: Current Medications Generic Name Dose Route Start Last Admin Trade Name Freq PRN Reason Stop Dose Admin Acetaminophen 1,000 mg 02/23/25 08:15 02/23/25 06:03 Acetaminophen 500 Mg Tablet PO 02/23/25 08:16 1,000 mg PREOP ONE Administration Celecoxib 400 mg 02/23/25 08:15 02/23/25 06:03 Celecoxib 200 Mg Capsule PO 02/23/25 08:16 400 mg PREOP ONE Administration Enoxaparin Sodium 40 mg 02/23/25 08:15 Enoxaparin 40 Mg/0.4 Ml Syringe SC 02/23/25 08:16 PREOP ONE Gabapentin 600 mg 02/23/25 08:15 02/23/25 06:04 Gabapentin 600 Mg Tablet PO 02/23/25 08:16 600 mg PREOP ONE Administration Lactated Ringer's 1,000 mls @ 40 mls/hr 02/23/25 08:15 02/23/25 06:14 IV 40 mls/hr .Q25H NADER Administration Cefazolin Sodium 3 gm/ Sodium 115 mls @ 150 mls/hr 02/23/25 08:15 Chloride IV 02/23/25 09:00 INTRAOP ONE Lactated Ringer's 1,000 mls @ 70 mls/hr 02/23/25 08:15 IV .[id number] NADER Magnesium Sulfate 2 gm/ 104 mls @ 208 mls/hr 02/23/25 08:15 02/23/25 06:16 Dextrose IV 02/23/25 08:44 208 mls/hr PREOP ONE Administration Insulin Human Lispro 0 unit 02/23/25 08:15 Insulin Lispro 100 Unit/Ml Insuln.Pen SC 02/23/25 14:00 Q4H PRN PRN BG >/= 180, SEE PROTOCOL Protocol Ondansetron HCl 4 mg 02/23/25 08:15 Ondansetron 4 Mg/2 Ml Vial IV 02/23/25 08:16 INTRAOP ONE Phenazopyridine HCl 190 mg 02/23/25 08:15 02/23/25 06:04 Phenazopyridine 95 Mg Tablet PO 02/23/25 08:16 190 mg PREOP ONE Administration Scopolamine HBr 1 patch 02/23/25 08:15 02/23/25 06:04 Scopolamine 1mg/72hr Patch TD 02/23/25 08:16 1 patch PREOP ONE Administration PFSH Medical History Thoracic myofascial strain Left shoulder strain Injury of left shoulder Wears contact lenses Depression Anxiety Arthritis High cholesterol Migraine headache Injury of head and neck History of GI bleed History of Crohn's disease Gastric reflux Non-smoker Painful defecation Vertigo Malnutrition Vitamin B12 deficiency Mixed hyperlipidemia Radiculopathy, cervical region Low back pain Unspecified abdominal pain Headache Proteinuria Viral URI Electrocution, initial encounter Home Medications ?Medication ?Instructions ?Recorded ?Last Taken ?Type folic acid 0.8 mg capsule 0.8 mg PO DAILY 05/02/18 02/22/25 History selenium 200 mcg capsule 200 mcg PO DAILY 05/02/18 02/22/25 History cyanocobalamin (vitamin B-12) 500 1,000 mcg PO DAILY 08/24/19 02/22/25 History mcg tablet cholecalciferol (vitamin D3) 25 25 mcg PO DAILY 12/22/21 02/22/25 History mcg (1,000 unit) capsule turmeric 400 mg capsule 400 mg PO DAILY 12/22/21 02/22/25 History clotrimazole-betamethasone 1 1 applic topical BID 2 weeks #45 06/25/23 Unknown Rx %-0.05 % topical cream grams budesonide 3 mg 3 mg PO BID #60 ea 10/29/23 02/22/25 Rx capsule,delayed,extended release celecoxib 200 mg capsule (Celebrex) 200 mg PO QDAY #30 caps 06/19/24 02/22/25 Rx Sprintec (28) 0.25 mg-0.035 mg 1 tab PO DAILY #84 tabs 06/29/24 02/22/25 Rx tablet (norgestimate-ethinyl estradiol) upadacitinib 30 mg tablet,extended 30 mg PO QDAY #90 tabs 02/17/25 02/22/25 Rx release 24 hr (Rinvoq) buspirone 15 mg tablet 15 mg PO TID PRN anxiety 30 days 02/19/25 02/23/25 03:10 Rx #30 tabs pantoprazole 40 mg tablet,delayed 40 mg PO QHS acid reflux 02/23/25 02/22/25 History release Allergy/AdvReac Type Severity Reaction Status Date / Time shrimp Allergy UNKOWN Verified 02/23/25 05:54 Family History Grandmother Diabetes Asthma Grandfather Diabetes Heart disease Kidney disease Father Diabetes Mother Hypertension Uterine cancer Other Thyroid disorder Surgical History Hx of colonoscopy History of esophagogastroduodenoscopy (EGD) H/O adenoidectomy History of tonsillectomy History of cholecystectomy Social History number of children: 0 current occupational status: employed 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
--- NOTE | 2025-02-23 07:28 | PCM.HP.BLA ---
History and Physical Date of Admission: 02/23/25 Intake Vital Signs 08/05/2513:57 02/19/2514:42 02/19/2514:42 Height 5 ft 7 in 5 ft 7 in 5 ft 7 in Weight: 307 lb 7 oz BMI 48.1 BP 142/86 H Intake Visit Reasons: TRH BS Cysto Chief Complaint: Preop Classification And Treatment Director Required: No Is patient in pain?: No Allergies shrimp Allergy (Verified 02/19/25 14:41) UNKOWN Medications ?Medication ?Instructions ?Recorded ?Confirmed ?Type folic acid 0.8 mg capsule 0.8 mg PO DAILY 05/02/18 02/19/25 History selenium 200 mcg capsule 200 mcg PO DAILY 05/02/18 02/19/25 History cyanocobalamin (vitamin B-12) 500 1,000 mcg PO DAILY 08/24/19 02/19/25 History mcg tablet cholecalciferol (vitamin D3) 25 25 mcg PO DAILY 12/22/21 02/19/25 History mcg (1,000 unit) capsule turmeric 400 mg capsule 400 mg PO DAILY 12/22/21 02/19/25 History clotrimazole-betamethasone 1 1 applic topical BID 2 weeks #45 06/25/23 02/19/25 Rx %-0.05 % topical cream grams budesonide 3 mg 3 mg PO BID #60 ea 10/29/23 02/19/25 Rx capsule,delayed,extended release celecoxib 200 mg capsule (Celebrex) 200 mg PO QDAY #30 caps 06/19/24 02/19/25 Rx pantoprazole 40 mg tablet,delayed 40 mg PO DAILY acid reflux #90 tabs 06/19/24 02/19/25 Rx release Sprintec (28) 0.25 mg-0.035 mg 1 tab PO DAILY #84 tabs 06/29/24 02/19/25 Rx tablet (norgestimate-ethinyl estradiol) upadacitinib 30 mg tablet,extended 30 mg PO QDAY #90 tabs 02/17/25 02/19/25 Rx release 24 hr (Rinvoq) buspirone 15 mg tablet 15 mg PO TID PRN anxiety 30 days 02/19/25 02/19/25 Rx #30 tabs Post menopausal: No Patient : No : No [facility] Medical History (Updated 02/19/25 @ 16:[address] Greta Morse DO) Thoracic myofascial strain Left shoulder strain Injury of left shoulder Wears contact lenses Depression Anxiety Arthritis High cholesterol Migraine headache Injury of head and neck History of GI bleed History of Crohn's disease Gastric reflux Non-smoker Painful defecation Vertigo Malnutrition Vitamin B12 deficiency Mixed hyperlipidemia Radiculopathy, cervical region Low back pain Unspecified abdominal pain Headache Proteinuria Viral URI Electrocution, initial encounter Surgical History Hx of colonoscopy History of esophagogastroduodenoscopy (EGD) H/O adenoidectomy History of tonsillectomy History of cholecystectomy Family History Grandmother Diabetes Asthma Grandfather Diabetes Heart disease Kidney disease Father Diabetes Mother Hypertension Uterine cancer Other Thyroid disorder Social History number of children: 0 current occupational status: employed 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 She has a 6 cm fibroid in the midbody of her 10 cm size uterus. Her mother has uterine cancer currently and is undergoing radiation. She has had heavy periods for several years and recently while being treated for Crohn's disease by Dr. Whitmore, was found to have the fibroid as discussed above. She is worried that she will develop uterine cancer like her mom and is not interested in having children. She works at [employer] OR and states that later in the year she would have time to take 6 weeks off to heal from surgery. endometrial biopsy was benign History 0 Elective abortions Hx Para Spontaneous abortions Hx # Term Pregnancies Ectopic pregnancies Hx # Pregnancies Multiple births # of living children ROS Const ROS Unobtainable: All systems reviewed & are unremarkable except as noted in H Resp Resp: Reports system reviewed and no additional complaints, except as documented; Denies cough GI GI: Reports as per HPI Psych Psych: Reports system reviewed and no additional complaints, except as documented Exam Const General: cooperative, healthy appearing, comfortable and no acute distress Resp Effort & Inspection: normal respiratory effort Skin General: no rashes or lesions noted Psych Appearance: grossly normal Speech and Movement: speech and movement normal Coding Level of Care Code Off vis,est,level 4 Diagnoses Class 3 severe obesity due to excess calories with serious comorbidity and body mass index (BMI) of 45.0 to 49.9 in adult E66.813; E66.01; Z68.42 Obesity type: due to excess calories Obesity classification: adult class 3 (BMI >= 40) Serious obesity comorbidity presence: with serious comorbidity Body mass index: BMI 45.0-49.9 ASCUS with positive high risk HPV Menorrhagia with regular cycle N92.0 Uterine leiomyoma, unspecified location D25.9 Uterine leiomyoma location: unspecified location Assessment and Plan Assessment and Plan (1) Obesity: Status: Chronic Qualifiers: Obesity type: due to excess calories Obesity classification: adult class 3 (BMI >= 40) Serious obesity comorbidity presence: with serious comorbidity Body mass index: BMI 45.0-49.9 Qualified Code(s): E66.813 - Obesity, class 3; E66.01 - Morbid (severe) obesity due to excess calories; Z68.42 - Body mass index [BMI] 45.0-49.9, adult (2) ASCUS with positive high risk HPV: Status: Acute Comment: 2014 X 2. 2016 ASCUS neg HPV 2018, 2021 neg pap and HPV; 2023 neg pap/HPV:rpt 3 yr (3) Menorrhagia with regular cycle: Status: Acute Comment: US (4) Uterine fibroid: Status: Acute Qualifiers: Uterine leiomyoma location: unspecified location Qualified Code(s): D25.9 - Leiomyoma of uterus, unspecified Comment: 4 cm fundal:rpt US ordered:6cm Medications: New buspirone 15 mg PO TID PRN 30 tabs 0RF anxiety 30 days Plan After discussing the patient's diagnosis and treatment plan options, patient wishes to proceed with surgical management. I have discussed with the patient the risks, benefits, and alternatives of the procedure which include but are not limited to risks of anesthesia, bleeding, infection, possible damage to bowel, bladder, or surrounding vasculature which could lead to additional surgery to evaluate any complications. Patient agrees to procedure and wishes to proceed. ACOG/uptodate references given for additional information regarding procedure. plan for robotic hyst, bs, cysto. Buspar given for preop anxiety.
[2025-02-23] MEDS: Cefazolin 1 GM/5 ML Vial 3 GM IV (07:30)
--- NOTE | 2025-02-23 07:30 | UT_PTH ---
PATIENT: WADE ESPARZA [place] [facility] [place][id number] AGE/SX: 34/F ROOM: RE02/23/[address]: Dr. Greta Morse DO : 1990 BED: DIS: 02/23/2025 SPEC #: [id number] RECD: 02/23/25 10:03 STATUS: DANIAL TELLY #: [id number] DWIGHT: 02/23/25 07:[address]: Greta Morse DEPT: SURGICAL PATHOLOGY RECD BY: Vinnie Waters ENTERED: 02/23/25 10:41 SP TYPE: UTERUS OTHR DR: Dr. May Alicia DO Tissues: A - Uterus, NOS B - Skin of labium, NOS Procedures: Surgery Specimen Level IV Surgery Specimen Level V HEADER OPERATION: ERAS, robotic total hysterectomy bilateral salpingectomy PRE-OP DIAGNOSIS: ASCUS with positive high risk HPV, menorrhagia with regular cycle, uterine fibroid TISSUE SUBMITTED: A- Uterus, cervix, bilateral fallopian tubes *tie on right*, B- Left labia shave biopsy MICROSCOPIC DIAGNOSIS A. Uterus, fallopian tubes, robotic total hysterectomy, bilateral salpingectomy: * Cervix: chronic endocervicitis, dilated endocervical glands. * Endometrium: proliferative endometrium, mildly disordered. * Myometrium: focal adenomyosis, leiomyomata (6.9 cm). * Serosa: focal adhesions. * Left fallopian tube: no specific pathologic change. * Right fallopian tube: no specific pathologic change. B. Skin, left labium, shave biopsy: * Benign verrucal lesion x2 - see note. * Note: Although these lesions may represent burnt out condylomata, no koilocytosis or dysplasia is observed in these sections. MICROSCOPIC DESCRIPTION Slides are reviewed. GROSS DESCRIPTION Received in 2 formalin containers labeled with the patient's name and date of . Designated as: A. Uterus, cervix, bilateral fallopian tubes is a 263.8 g, markedly disrupted uterus with detached cervix and adnexa, collectively measuring 11.3 x 9.9 x 5.8 cm in aggregate. The specimen is distorted by an exposed, 6.9 cm bulging intramural leiomyoma (with attached uterine cornu). The serosa is alexis-pink and focally congested with a 1.2 cm subserosal leiomyoma. Definitive orientation of the specimen is unable to be determined due to its disrupted state however, when reapproximated, the alexis-pink to red and granular cervix measures 3.4 x 3.0 cm. The minimally identifiable cauterized cervical margins are inked black. Mucoid containing cysts are present in the cervix.. Sectioning reveals a 2.0 x 2.0 cm irregular, distorted and compressed portion of endometrial canal lined by alexis-red, somewhat granular endometrium, measuring up to 0.2 cm thick. The myometrium is a alexis-pink and trabeculated containing an additional, 1.4 cm intramural leiomyoma and measuring approximately 2.5 cm thick however, this measurement is taken from the available myometrium at the cornu which may not represent the true maximal thickness of the myometrium. The cut surfaces of the largest leiomyoma are alexis-white and whorled with focal, possible cystic degeneration. The alexis-pink fimbriated fallopian tubes are oriented with a tie designated as right and measure 6.7 x 0.4 cm (left) and 6.0 x 0.3 cm (right). A few paratubal cysts are identified, averaging <0.1 cm. Double End Trimmer sections are submitted in 11 cassettes as follows: A1-A3: CervixA4-A6: EndometriumA7: Left fallopian tubeA8: Right fallopian tubeA9: Intramural leiomyoma, subserosal leiomyoma, serosal congestion (versus adhesions)A10-A11: Largest leiomyoma including areas of possible cystic degeneration B. Left labia shave biopsies are 2 alexis to light brown undesignated skin shaves, 0.8 x 0.5 x 0.2 cm (inked green) and 0.7 x 0.5 x 0.2 cm (inked blue). No definitive lesions are grossly identified. The specimen is serially sectioned and entirely submitted in 1 cassette. MS 02/23/2025 CPT:12833,02171
[2025-02-23] MEDS: Midazolam 2 MG/2 ML Syringe IV (07:31)
--- NOTE | 2025-02-23 07:32 | PCM.DC ---
Discharge Instructions DC O2, CPAP, BIPAP needs Home O2 Discharge instructions: No Dressing / Incision Discharge Activity: May Shower May resume sexual activity in: 8 weeks Weight Bearing Status: Full weight bearing Lifting Restrictions: 10 pounds for 2 weeks Dressing / Incision Call your doctor if your incision/area has: Continuous Slow Oozing, Sudden Increased Bleeding, Increased Pain/ Swelling, Increased Redness and Foul Smelling Discharge Call your doctor if you observe: Fever of 101 or Higher, Using more than 1 pad per hour, Shortness of breath, Chest pain and Uncontrolled pain Suture Line Care: Avoid Pulling/Pushing and Avoid Pinching/Bending Remove Dressing in: 1 week (if present) Cleanse incision/area with: Soap & Water and Keep Dressing Clean & Dry Follow Up Care Please Follow Up With: Greta Morse DO When: Call to make an appointment with your doctor for a postop visit in 2 and 6 weeks Test Results: Test results from this visit will be discussed in further detail at your follow-up appointment, if applicable. Discharge Plan Admission Primary Reason for Your Visit: robotic hysterectomy Attending Provider: Greta Morse Primary Care Provider: May Alicia Instructions Print Language: Latvian Discharge Orders/Prescriptions Prescriptions: New ibuprofen 800 mg tablet 800 mg PO Q8H PRN (Reason: pain) Qty: 30 0RF oxycodone-acetaminophen [Percocet] 5-325 mg tablet 1 tab PO Q4H PRN (Reason: pain) 7 Days Qty: 20 0RF Continued selenium 200 mcg capsule 200 mcg PO DAILY folic acid 0.8 mg capsule 0.8 mg PO DAILY turmeric 400 mg capsule 400 mg PO DAILY cholecalciferol (vitamin D3) 25 mcg (1,000 unit) capsule 25 mcg PO DAILY clotrimazole-betamethasone 1-0.05 % cream 1 applic topical BID 14 Days Qty: 45 1RF celecoxib [Celebrex] 200 mg capsule 200 mg PO QDAY Qty: 30 1RF buspirone 15 mg tablet 15 mg PO TID PRN (Reason: anxiety) 30 Days Qty: 30 0RF cyanocobalamin (vitamin B-12) 500 MCG tablet 1,000 mcg PO DAILY pantoprazole 40 mg tablet,delayed release (DR/EC) 40 mg PO QHS budesonide 3 mg capsule,delayed,extend.release 3 mg PO BID Qty: 60 3RF Rinvoq 30 mg tablet extended release 24 hr 30 mg PO QDAY Qty: 90 3RF Discontinued norgestimate-ethinyl estradiol [Sprintec (28)] 0.25-35 mg-mcg tablet 1 tab PO DAILY Qty: 84 4RF Referrals / Follow Up: May Alicia DO [Primary Care Provider, Internal Medicine] Disposition Disposition (needs filled in before D/C Order can be placed): Home, Self Care
[2025-02-23] MEDS: fentaNYL 100 MCG/2 ML Ampul IV (07:42)
[2025-02-23] MEDS: Lidocaine 1% (5 ml sdv) 5 ML Vial IV (07:42)
[2025-02-23] MEDS: Ketorolac 30 MG/ML Syringe IV (09:23)
--- NOTE | 2025-02-23 09:34 | PCM.OPRPT ---
Multi Select Codes Urinary/Genital Urinary/Genital CPT Codes: 22952 Cystoscopy and 89008 TLH+BS/O >250gr uterus Operative Report (Standard) Operative Information Date of Procedure: 02/23/25 Pre-Operative Diagnosis: enlarged fibroid uterus, menorrhagia, family history of uterine cancer Post-Operative Diagnosis: enlarged fibroid uterus, menorrhagia, family history of uterine cancer, labial lesions Surgery/Procedure Performed: total robotic hysterectomy, bilateral salpingectomy, cystoscopy , shave biopsy of left labia waistline joiner: Yes [employer] Repairer: Laila Young Tasks completed by post production assistant: Closing, Trocar and Retracting Additional assistant teaching professor?: No Type of Anesthesia: General RN Documented Start/Stop Times: Operation Date: 02/23/25 07:30 Case Time Into Pre-Op 02/23/25 05:36 Out of Pre-Op 02/23/25 07:25 Anesthesia Start 02/23/25 07:30 Into Room 02/23/25 07:30 Procedure Start 02/23/25 08:00 Procedure Start Time: 08:00 Procedure Stop Time: 09:40 Select all DRAINS/GRAFTS/IMPLANTS that apply: None Estimated Blood Loss: 30cc Fluids Replaced: 1500 Specimen collected: Yes Description of specimen(s) removed: uterus, cervix, fallopian tubes, biopsy of left labia Description of surgery: Reason for surgery: This is a 34-year-old G0,who presented to my office with history of heavy irregular periods refractory to conservative treatment. She does not desire to have children and her mother is going through chemo and radiation for uterine cancer. She is requesting a hysterectomy for definitive treatment and to prevent future uterine cancer. the planned procedure is for a robotic hysterectomy the risks benefits and alternatives were discussed with the patient the patient had a clear understanding of the procedure and a consent form was signed. Procedure: The patient was placed in the dorsal low lithotomy position and prepped and draped in the normal sterile fashion both abdominally and in the perineum. Her legs were placed in stirrups a Sevilla catheter was inserted into the urethra without difficulty. A weighted speculum was placed in the vagina and a single-tooth tenaculum was used to grasp the anterior lip of the cervix. An advincula uterine manipulator was inserted through the cervix without complication. It was then tied into place at the 2 and 10:00 locations on the cervix. Gloves were changed and attention was turned towards the abdomen. Approximately 23 cm above the pubic symphysis in the midline, and after Marcaine injection, a 8 mm incision was made. An 8 mm trocar was inserted through the laparoscope, then inserted into the abdomen under direct visualization using the laparoscope. Good abdominal placement was noted and no complications were appreciated. An air seal device was utilized to create pneumoperitoneum. At 12 cm lateral to the midline on the left and right sides 8 mm accessory ports were placed. Next a left upper quadrant 8 mm assistant teaching professor port site was placed. The patient was placed in steep Trendelenburg position. The robot was docked. The hysterectomy was initiated first by taking down the round ligament on each side using the vessel sealer device. The fallopian tubes were grased and the mesosalpinx was cauterized and cut to the cornua. The broad ligament was then and taken down using the vessel sealer device. Next the bladder flap was taken down without complication. This was done using monopolar cautery to the level of the cervical vaginal junction. After the bladder flap was created, uterine vessels were then isolated and cauterized using the vessel sealer device and EndoShears. At this point the uterine vessels were taken down further starting from the ascending branch, dissecting along the edges of the cervix to the level of the cervical vaginal junction with hemostasis appreciated. The cervical vaginal junction was then using monopolar cautery in a circumferential pattern across the superior aspect of the cervix. The specimen was delivered through the vagina after bivalving the uterus vaginally, then sent to pathology.The uterus was first weighed in the room and weighed 274 grams. The remaining vaginal cuff was then closed using a V lock suture. This was performed in a running technique with 2 layers and including the uterosacral ligament for support. Excellent hemostasis was obtained and good closure was noted. Irrigation was then performed. All operative sites were noted to be hemostatic. A cystoscopy was performed with a 70 degree cystoscope through the urethra into the bladder without complication. The bladder was instilled with approximately 250 cc of normal saline. Intraoperative images were made. Ureteral orifices and jets were identified. No suture material was appreciated in the bladder. The bladder was then drained and cystoscope was removed. The abdominal cavity was again examined. All operative sites were noted to be hemostatic. The trochars were removed under direct visualization without complication and pneumoperitoneum was reduced. At this point the skin was then closed using 4-0 Monocryl subcuticular stitch and sealed with surgical glue. There were noted two lesions on the left labia that were dark in color and flush with the skin surface. Shave biopsies were taken on this left side and the skin was reapproximated using 3-0 monocryl. The patient tolerated the procedure well sponge lap and needle counts were correct x2 the patient was taken to the recovery room in stable condition. Surgical Findings: enlarged fibroid Complications Complications: No Admit VTE Documentation VTE Present on Admission: No VTE Mechan Device Prophylaxis: SCD's VTE Pharm Prophylaxis ordered?: No
[2025-02-23] MEDS: dexMEDEtomidine 200 MCG/2 ML ML 40 MCG IV (09:36)
--- NOTE | 2025-02-23 10:02 | PCM.POST.ANE ---
Anesthesia: Postop Eval I Current Vital Signs Temperature: 97.8 F Pulse Rate: 62 Blood Pressure: 124/74 Respiratory Rate: 16 Pulse Ox: 100 Oxygen Delivery Method: Nasal Cannula Oxygen Flow Rate (L/min): 2 Assessment Airway patent: Yes Spontaneous unlabored respirations: Yes Mental status: Awake and Calm nausea: No Vomiting: No Anesthesia Complication: No Fluid Hydration Crystalloid volume administer (ml): 1,500 Total IV fluid infused: 1,500 Progress Note Anesthesia document: Postop Eval 1 completed: Yes
[2025-02-23] MEDS: HYDROcodone Bitartrate/Apap 5/325 Tablet PO (12:06)
--- NOTE | 2025-02-23 15:03 | POSTOPAN2_ITS ---
Anesthesia Postop Eval I Sum Postop Eval Completion status Anesthesia document: Postop Eval 1 completed: Yes Anesthesia Postop Eval I Summary Anesthesia Postop Eval I Summary: Anesthesia Postop Eval I: Assessment Summary Airway patent Yes 02/23/25 10:03 [email or web address] Spontaneous unlabored Yes 02/23/25 10:03 [email or web address] respirations Mental status Awake,Calm 02/23/25 10:03 [email or web address] nausea No 02/23/25 10:03 [email or web address] Vomiting No 02/23/25 10:03 [email or web address] Anesthesia Postop Eval I: Fluid Summary Crystalloid volume administer 1,500 02/23/25 10:03 [email or web address] (ml) Colloids volume administered ( ml) Blood Product volume administered (ml) Total IV fluid infused 1,500 02/23/25 10:03 [email or web address] Anesthesia Postop Eval I: Summary Notes Anesthesia Complication No 02/23/25 10:03 [email or web address] Anesthesia Complication Comment: Post-operative progress note Anesthesia: Postop Eval II Evaluation Mental status: Awake and Calm Pain Level: 2 nausea: No Vomiting: No Complications Anesthesia Complication: No
--- NOTE | 2025-02-23 15:03 | PCM.POSTANE2 ---
Anesthesia Postop Eval I Sum Postop Eval Completion status Anesthesia document: Postop Eval 1 completed: Yes Anesthesia Postop Eval I Summary Anesthesia Postop Eval I Summary: Anesthesia Postop Eval I: Assessment Summary Airway patent Yes 02/23/25 10:03 LEAD [email or web address] [email or web address] Spontaneous unlabored Yes 02/23/25 10:03 LEAD [email or web address] [email or web address] respirations Mental status Awake,Calm 02/23/25 10:03 LEAD [email or web address] [email or web address] nausea No 02/23/25 10:03 LEAD [email or web address] [email or web address] Vomiting No 02/23/25 10:03 LEAD [email or web address] [email or web address] Anesthesia Postop Eval I: Fluid Summary Crystalloid volume administer 1,500 02/23/25 10:03 LEAD [email or web address] [email or web address] (ml) Colloids volume administered ( ml) Blood Product volume administered (ml) Total IV fluid infused 1,500 02/23/25 10:03 LEAD [email or web address] [email or web address] Anesthesia Postop Eval I: Summary Notes Anesthesia Complication No 02/23/25 10:03 LEAD [email or web address] [email or web address] Anesthesia Complication Comment: Post-operative progress note Anesthesia: Postop Eval II Evaluation Mental status: Awake and Calm Pain Level: 2 nausea: No Vomiting: No Complications Anesthesia Complication: No
== END 2025-02-23 13:14 | disposition home or self-care (01) ==
LOC: SDC 05:15 → AC 05:16
PROVIDERS: Anesthesiology; PCP Internal Medicine; Referring Provider Obstetrics & Gynecology; Visit Provider Obstetrics & Gynecology
PROC: 0UT90ZZ Resection of Uterus, Open Approach (ICD-10-PCS; CPT 58571; principal; 2025-02-23 07:10)
DX: N80.03 Adenomyosis of the uterus (principal); Z68.41 Body mass index [BMI] 40.0-44.9, adult; E66.813 Obesity, class 3; Z79.4 Long term (current) use of insulin; E78.2 Mixed hyperlipidemia; N92.0 Excessive and frequent menstruation with regular cycle; Z79.899 Other long term (current) drug therapy; K21.9 Gastro-esophageal reflux disease without esophagitis; Z80.49 Family history of malignant neoplasm of other genital organs; N72 Inflammatory disease of cervix uteri; N88.1 Old laceration of cervix uteri; D25.1 Intramural leiomyoma of uterus; D25.2 Subserosal leiomyoma of uterus; N90.89 Other specified noninflammatory disorders of vulva and perineum; E78.00 Pure hypercholesterolemia, unspecified
CPT/HCPCS: 58571; S2900; 56605; 00840; 36415; 80053; 81025; 82962; 83735; 86850; 86900; 86901; 88305; 88307; 93005; J2405

== ENCOUNTER 2025-06-01 14:10 | Emergency (ER) | payer OTHER, SELFPAY ==
[2025-06-01 14:11] VITALS: BP 158/97; PULSE 111; RESP 13; TEMP 36.6; O2SAT 100
[2025-06-01 14:18] VITALS: BMI 50.8
[2025-06-01] MEDS: Smz/Tmp Ds Tablet 1 TABLET PO (14:41)
--- NOTE | 2025-06-01 14:51 | EX.ED.DYSGE1 ---
HPI History of Present Illness Chief Complaint: Cellulitis Informant: patient Narrative Narrative: Patient is a 34-year-old female presenting with a swollen, erythematous area on the posterolateral proximal right calf. - Onset 3 days ago, with significant increase in prominence and pain today. - Denies systemic symptoms such as fevers, red streaks up the leg, or obvious etiology such as a splinter or other injury. - No history of MRSA or abscesses. 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 - Denies history of DM. She does have a history of Crohn's disease and is on an injectable biologic for that. [facility] Medical History Thoracic myofascial strain Left shoulder strain Injury of left shoulder Wears contact lenses Depression Anxiety Arthritis High cholesterol Migraine headache Injury of head and neck History of GI bleed History of Crohn's disease Gastric reflux Non-smoker Painful defecation Vertigo Malnutrition Vitamin B12 deficiency Mixed hyperlipidemia Radiculopathy, cervical region Low back pain Unspecified abdominal pain Headache Proteinuria Viral URI Electrocution, initial encounter Home Medications ?Medication ?Instructions ?Recorded ?Last Taken ?Type folic acid 0.8 mg capsule 0.8 mg PO DAILY 05/02/18 02/22/25 History selenium 200 mcg capsule 200 mcg PO DAILY 05/02/18 02/22/25 History cyanocobalamin (vitamin B-12) 500 1,000 mcg PO DAILY 08/24/19 02/22/25 History mcg tablet cholecalciferol (vitamin D3) 25 25 mcg PO DAILY 12/22/21 02/22/25 History mcg (1,000 unit) capsule turmeric 400 mg capsule 400 mg PO DAILY 12/22/21 02/22/25 History clotrimazole-betamethasone 1 1 applic topical BID 2 weeks #45 06/25/23 Unknown Rx %-0.05 % topical cream grams upadacitinib 30 mg tablet,extended 30 mg PO QDAY #90 tabs 02/17/25 02/22/25 Rx release 24 hr (Rinvoq) pantoprazole 40 mg tablet,delayed 40 mg PO QHS acid reflux 02/23/25 02/22/25 History release budesonide 3 mg 3 mg PO BID #60 ea 04/06/25 Unknown Rx capsule,delayed,extended release celecoxib 200 mg capsule (Celebrex) 200 mg PO QDAY #30 caps 04/06/25 Unknown Rx cyclobenzaprine 10 mg tablet 10 mg PO HS PRN muscle spasm #20 04/27/25 Unknown Rx tabs cephalexin 500 mg capsule 500 mg PO Q6 #40 CAPSULES 06/01/25 Unknown Rx sulfamethoxazole 800 1 tab PO BID #20 TABLETS 06/01/25 Unknown Rx mg-trimethoprim 160 mg tablet Allergy/AdvReac Type Severity Reaction Status Date / Time shrimp Allergy UNKOWN Verified 06/01/25 14:12 Family History Grandmother Diabetes Asthma Grandfather Diabetes Heart disease Kidney disease Father Diabetes Mother Hypertension Uterine cancer Other Thyroid disorder Surgical History History of robot-assisted laparoscopic hysterectomy (02/23/25) Hx of colonoscopy History of esophagogastroduodenoscopy (EGD) H/O adenoidectomy History of tonsillectomy History of cholecystectomy Social History number of children: 0 current occupational status: employed 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 Smoking Status: Never smoker alcohol intake: never substance use type: does not use seatbelt use: always do you feel safe at home: Yes additional social history: Single ROS ROS ED Constitutional Constitutional ED: Denies chills or fever(s) Musculoskeletal Musculoskeletal: Reports extremity pain; Denies neck pain Integumentary Reports rash; Denies Abrasions or wounds Neurologic Neurologic: Denies paresthesias or weakness EXAM Physical Exam Const Vital Signs: 06/01/25 14:11 Temperature 98 F Temperature Source Oral Pulse Rate 111 H Respiratory Rate 13 Blood Pressure 158/97 H Blood Pressure Mean 117 Pulse Ox 100 Oxygen Delivery Method Room Air Positive well nourished and well developed General Appearance ED: well developed and NAD Neck full ROM and supple Back/Spine normal ROM and normal to inspection Extremity Extremity Narrative: Multifocal tender erythema of the right calf without lymphangitis/streaking. The largest is about 3 or 4 cm in diameter, indurated, and there is some early papule/vesicle formation but no fluctuance or feeling like there is an abscess/mass here. No evidence of foreign body. It is not pointing to suggest an abscess. All compartments are soft and nondistended, just the erythematous areas are tender. Full range of motion at the knee and ankle. Neuro oriented x3, no focal motor deficits and no sensory deficits noted Sensorium / Orientation: alert Psych mental status grossly normal and thought process normal Skin no wounds Rashes: no rashes MDM MDM MDM Narrative Medical decision making narrative: Assessment: The patient is a 34-year-old female presenting for a painful, swollen, erythematous area on the posterolateral proximal right calf. Bedside high-frequency ultrasound demonstrates no subcutaneous cavity, making abscess unlikely. With no fever, lymphangitis, or systemic signs, uncomplicated right calf cellulitis, likely staphylococcal (including possible early MRSA), is the most likely diagnosis. Plan: - Initiated oral antibiotics covering MRSA and MSSA. - Provided wound care instructions and return precautions for rapid spread or systemic symptoms. - Arranged outpatient dermatology follow-up on 06/08. - Discharged home in stable condition. Diagnostics: - Bedside high-frequency ultrasound of right calf: no fluid collection or abscess; findings consistent with cellulitis. Independently interpreted by me, Dwight Vasquez. Portions of this note were generated using voice recognition software ([employer]). I have reviewed the contents and every effort has been made to ensure accuracy; however, inadvertent errors in grammar, spelling, punctuation, or word choice may occur, that were not noted before signing the document and should not alter the intended clinical meaning. Discharge Plan Triage Chief Complaint: Cellulitis ED Provider: Dwight Vasquez Dx/Rx/DC Orders Clinical Impression: Cellulitis of right leg Instructions: Cellulitis Dc, Staph MRSA Prescriptions: New sulfamethoxazole-trimethoprim 800-160 mg tablet 1 tab PO BID Qty: 20 0RF cephalexin 500 mg capsule 500 mg PO Q6 Qty: 40 0RF No Action selenium 200 mcg capsule 200 mcg PO DAILY folic acid 0.8 mg capsule 0.8 mg PO DAILY turmeric 400 mg capsule 400 mg PO DAILY cholecalciferol (vitamin D3) 25 mcg (1,000 unit) capsule 25 mcg PO DAILY clotrimazole-betamethasone 1-0.05 % cream 1 applic topical BID 14 Days Qty: 45 1RF budesonide 3 mg capsule,delayed,extend.release 3 mg PO BID Qty: 60 3RF celecoxib [Celebrex] 200 mg capsule 200 mg PO QDAY Qty: 30 1RF cyclobenzaprine 10 mg tablet 10 mg PO HS PRN (Reason: muscle spasm) Qty: 20 0RF cyanocobalamin (vitamin B-12) 500 MCG tablet 1,000 mcg PO DAILY pantoprazole 40 mg tablet,delayed release (DR/EC) 40 mg PO QHS Rinvoq 30 mg tablet extended release 24 hr 30 mg PO QDAY Qty: 90 3RF Primary Care Provider: May Alicia Referrals: dermatology as scheduled [Other] Activity Restrictions/Additional Instructions: Given that you are on 2 antibiotics, eat yogurt or take a probiotic daily to help prevent antibiotic-associated diarrhea and C. difficile. Print Language: Italian Disposition Disposition: Home, Self Care
[2025-06-01 14:59] VITALS: BP 158/89; PULSE 104; RESP 18; TEMP 36.6; O2SAT 100
== END 2025-06-01 15:05 | disposition home or self-care (01) ==
PROVIDERS: Emergency Provider Emergency Medicine; PCP Internal Medicine; Visit Provider Emergency Medicine
DX: L03.115 Cellulitis of right lower limb (principal)
CPT/HCPCS: 99283